=== PATIENT | female | born 1955 | race Hispanic/Latino ===

== ENCOUNTER 2018-07-31 15:16 | Inpatient (IN) | payer MEDICARE, MEDICAID ==
[2018-07-31] MEDS ORDERED: Sodium Chloride 0.9% 1,000 ML IV ONE ×2 (15:39→16:14)
--- NOTE | 2018-07-31 15:57 | C.PDOC ---
History Of Present Illness 62 y/o female, with PMHx of HTN, hyperlipidemia, and depression, is brought to ED by EMS for altered mental status. As per son, pt was drowsy all day yesterday, and had called EMS but pt refused to come to hospital. However, son states patient's condition worsened, and she was not answering any questions today. EMS was called again. Upon EMS arrival, pt found to be unresponsive, and hypersalivating. Pt was intubated on field, ET tube 7.0 at the lip. Limited history at this time due to clinical condition. Chief Complaint (Nursing): Altered Mental Status History Per: Patient History/Exam Limitations: Clinical Condition Additional History Per: EMS, Family Past Medical History Reviewed: Historical Data, Nursing Documentation, Vital Signs Vital Signs: Last Vital Signs Temp Pulse 104 H 07/31/18 15:26 Resp 11 L 07/31/18 15:26 BP Pulse Ox 100 07/31/18 15:26 - Medical History PMH: Depression, HTN, Hyperlipidemia Family History: States: Unknown Family Hx - Social History Hx Alcohol Use: (unknown) Hx Substance Use: (unknown) Review Of Systems Review Of Systems: ROS cannot be obtained secondary to pt's inabilty to answer questions. Neurological: Positive for: Altered Mental Status Physical Exam - Physical Exam Appears: Non-toxic Skin: Warm, Dry, Other (multiple healing rash diffusely) Head: Atraumatic, Normacephalic Eye(s): bilateral: PERRL (pupils 3mm bilaterally) Nose: Normal Oral Mucosa: Dry Neck: Supple Chest: Symmetrical Cardiovascular: Rhythm Regular Respiratory: Normal Breath Sounds Gastrointestinal/Abdominal: Soft, No Tenderness Extremity: Pedal Edema (bilateral) Extremity: Bilateral: Atraumatic Neurological/Psych: Other (unresponsive) ED Course And Treatment - Laboratory Results Result Diagrams: 08/02/18 05:48 08/02/18 05:49 ECG: Interpreted By Me, Viewed By Me ECG Rhythm: Sinus Tachycardia ECG Interpretation: No Acute Changes Interpretation Of ECG: No ST/T wave changes. Rate From EC (bpm) O2 Sat by Pulse Oximetry: 100 (RA) Pulse Ox Interpretation: Normal Medical Decision Making Medical Decision Making: Impression: Altered mental status with respiratory failure. r/o CVA Plan: Blood work Urinalysis Head CT CXR Sodium Bicarbonate IV fluids Spoke with Dr. Seth, field service consultant critical care, who requests emergency hemodialysis. Spoke to Dr. Gann, field service consultant nephrology, informed about emergency hemodialysis. He agrees with plan. executive vice president of sales was pages and was informed about [facility]. Family members agree with plan to hemodialyze. Disposition - Disposition Disposition: HOSPITALIZED Disposition Time: 17:11 Condition: CRITICAL - Clinical Impression Clinical Impression: Metabolic acidosis, Rhabdomyolysis, Acute kidney injury, Respiratory failure - Scribe Statement The provider has reviewed the documentation as recorded by the Scribe KP All medical record entries made by the Scribe were at my direction and personally dictated by me. I have reviewed the chart and agree that the record accurately reflects my personal performance of the history, physical exam, medical decision making, and the department course for this patient. I have also personally directed, reviewed, and agree with the discharge instructions and disposition.
[2018-07-31 16:00] LABS: BASO % 0.2 % (0.0-2.0); EOS % 0.1 % (0.0-4.0); HEMOGLOBIN 9.2 g/dL (11.0-16.0); LYMPH # 0.6 K/uL (1.0-4.3); LYMPH % 4.9 % (20.0-40.0); MEAN CELL VOLUME 95.4 fL (81.0-99.0); MEAN CORPUSCULAR HEMOGLOBIN 31.7 pg (27.0-31.0); MEAN CORPUSCULAR HGB CONC 33.3 g/dL (33.0-37.0); MEAN PLATELET VOLUME 8.2 fL (7.2-11.7); MONO # 0.7 K/uL (0.0-0.8); MONO % 5.4 % (0.0-10.0); NEUT # 11.5 K/uL (1.8-7.0); NEUT % 89.4 % (50.0-75.0); NRBC % 0.2 % (0.0-2.0); PLATELET COUNT 278 K/uL (130-400); RBC 2.89 Mil/uL (3.80-5.20); RED CELL DISTRIBUTION WIDTH 14.3 % (11.5-14.5); WHITE BLOOD COUNT 12.8 K/uL (4.8-10.8)
[2018-07-31 16:01] LABS: VENOUS BLOOD GAS BASE EXCESS -24.1 mmol/L (0.0-2.0); VENOUS BLOOD GAS PCO2 33 mmHg (40-60); VENOUS BLOOD GAS PO2 56 mm/Hg (30-55); VENOUS BLOOD PH 6.95 (7.32-7.43)
[2018-07-31 16:06] LABS: INR 1.1; PROTHROMBIN TIME 12.1 SECONDS (9.7-12.2)
[2018-07-31 16:18] LABS: SQUAMOUS EPITHIAL 36 /hpf (0-5); URINE AMORPHOUS SEDIMENT FEW /ul (<OCC); URINE BACTERIA MANY (<OCC); URINE BILIRUBIN 1+ (NEGATIVE); URINE BLOOD 1+ (NEGATIVE); URINE CLARITY Turbid (Clear); URINE COLOR Yellow (YELLOW); URINE GLUCOSE (UA) NORMAL (Normal); URINE LEUKOCYTE ESTERASE 2+ Leu/uL (Negative); URINE PROTEIN 2+ mg/dL (NEGATIVE); URINE UROBILINOGEN NORMAL mg/dL (0.2-1.0); WBC CLUMPS MANY /hpf
[2018-07-31 16:19] LABS: ABG ALLEN TEST UNABLE; ARTERIAL BLOOD GAS HCO3 5.9 mmol/L (21-28); ARTERIAL BLOOD GAS PCO2 27 mm/Hg (35-45); ARTERIAL BLOOD GAS PH 6.97 (7.35-7.45); ARTERIAL BLOOD GAS PO2 336 mm/Hg (80-100)
[2018-07-31 16:22] LABS: ACETAMINOPHEN < 10.0 ug/mL (10.0-30.0); SALICYLATE < 1.0 mg/dL 1
--- NOTE | 2018-07-31 16:22 | RAD ---
Date of service: 07/31/2018 PROCEDURE: CHEST RADIOGRAPH, 1 VIEW HISTORY: post intubation COMPARISON: No prior study available for comparison. FINDINGS: In situ ETT, tip of which lies approximately 3.9 cm above ede. NGT is present, the tip of which appears to lie just below the EG junction LUNGS: Hazy appearance of the left lower lung field could represent some combination of atelectasis/infiltrate and effusion.. Minimal linear atelectasis or scarring right lung base. PLEURA: No pneumothorax or pleural fluid seen. CARDIOVASCULAR: . Heart size within range of normal. OSSEOUS STRUCTURES: No significant abnormalities. VISUALIZED UPPER ABDOMEN: Normal. OTHER FINDINGS: None. IMPRESSION: ETT and NGT as described. Hazy appearance of the left lower lung field could represent some combination of atelectasis/infiltrate and effusion.. Minimal linear atelectasis or scarring right lung base.
[2018-07-31 16:25] LABS: CK-MB 27.1 ng/mL (0.0-3.38); TROPONIN I 0.023 ng/mL (0.00-0.120)
[2018-07-31 16:26] LABS: ALB/GLOB RATIO 0.9 (1.0-2.1); ALBUMIN 3.1 g/dL (3.5-5.0); CALCIUM 7.6 mg/dl (8.6-10.4)
[2018-07-31] MEDS ORDERED: Sodium Bicarbonate (8.4%) 50 Meq Syringe IVP ONE ×3 (16:28→16:31)
[2018-07-31 16:36] LABS: BANDS 3 % (0-2); LYMPHOCYTE 4 % (20-40); MONOCYTE 2 % (0-10); NEUTROPHIL 91 % (50-75); PLATELET ESTIMATE NORMAL (NORMAL); TOTAL CELLS COUNTED 100
[2018-07-31 16:37] LABS: ANISOCYTOSIS SLIGHT; HYPOCHROMIC SLIGHT; LARGE PLATELETS PRESENT; MICROCYTOSIS SLIGHT
[2018-07-31] MEDS ORDERED: Sodium Bicarbonate (8.4%) 50 Meq Syringe ONE (16:46)
[2018-07-31 16:52] LABS: BARBITURATES, UR NEGATIVE (NEGATIVE); PHENCYCLIDINE, UR NEGATIVE (NEGATIVE)
[2018-07-31 16:54] LABS: BENZODIAZEPINES, UR POSITIVE (NEGATIVE); OPIATES, UR POSITIVE (NEGATIVE)
[2018-07-31] MEDS ORDERED: Azithromycin 500 MG in Sodium Chloride 0.9% 250 ML IVPB STA (17:02)
--- NOTE | 2018-07-31 17:06 | CT ---
Date of service: 07/31/2018 PROCEDURE: CT HEAD WITHOUT CONTRAST. HISTORY: respiratory failure COMPARISON: None available. TECHNIQUE: Axial computed tomography images were obtained through the head/brain without intravenous contrast. Radiation dose: Total exam DLP = 1045.92 mGy-cm. This CT exam was performed using one or more of the following dose reduction techniques: Automated exposure control, adjustment of the mA and/or kV according to patient size, and/or use of iterative reconstruction technique. FINDINGS: Ground Support Equipment Fitter film demonstrates in situ ETT and NGT... HEMORRHAGE: No intracranial hemorrhage. BRAIN: Minor chronic periventricular white matter ischemic changes are felt to be present. There are a few tiny chronic appearing bilateral basal nuclei lacunar type infarcts.. No obvious parenchymal nor extra-axial mass or collection. Moderate generalized volume loss VENTRICLES: No obstructive hydrocephalus. CALVARIUM: Calvarium intact. PARANASAL SINUSES: There is partial opacification of multiple ethmoid air cells more so on the right side.. Small amount of fluid is present within the posterior nasal cavity and nasopharynx likely related to the presence aforementioned ETT and NGT MASTOID AIR CELLS: Unremarkable as visualized. No inflammatory changes. OTHER FINDINGS: Orbits and contents unremarkable. IMPRESSION: Mild chronic periventricular white matter ischemic changes with a few tiny chronic bilateral basal nuclei lacunar type infarcts. Moderate generalized volume loss.
[2018-07-31] MEDS ORDERED: Azithromycin 500mg/250ML NS 500 MG/250 ML BAG IVPB ONE (17:11)
[2018-07-31] MEDS ORDERED: cefTRIAXone 1 gm 1 GM/100 ML BAG IVPB ONE (17:11)
--- NOTE | 2018-07-31 18:04 | CP.PCM.CON ---
History of Present Illness - History of Present Illness History of Present Illness: 62yo F. PMHx HTN, hyperlipidemia, and depression. Was drowsy yesterday, couch bound for days expecially after recently starting Remeron for depression. Patient was lethargic yesterday but refused EMS pickup and admission to hospital . EMS called again today and found patient unresponsive, and intubated her in the field. Review of Systems - Review of Systems Systems not reviewed;Unavailable: Intubated Past Patient History - Past Social History Smoking Status: Unknown If Ever Smoked - CARDIAC Hx Hypertension: Yes - PSYCHIATRIC Hx Depression: Yes Hx Substance Use: (unknown) Meds Allergies/Adverse Reactions: Allergies Allergy/AdvReac Type Severity Reaction Status Date / Time No Known Allergies Allergy Verified 07/31/18 15:33 - Medications Medications: Current Medications Sodium Chloride (Sodium Chloride 0.9%) 1,000 mls @ 250 mls/hr IV .Q4H ONE Stop: 07/31/18 20:13 Last Admin: 07/31/18 16:20 Dose: 250 mls/hr Ceftriaxone Sodium 1 gm/ (Sodium Chloride) 100 mls @ 100 mls/hr IVPB ONCE ONE; Protocol Stop: 08/01/18 18:00 Last Admin: 07/31/18 17:11 Dose: 100 mls/hr Physical Exam - Head Exam Head Exam: ATRAUMATIC, NORMAL INSPECTION, NORMOCEPHALIC - Eye Exam Eye Exam: Normal appearance Pupil Exam: PERRL - ENT Exam ENT Exam: Mucous Membranes Moist - Neck Exam Neck exam: Positive for: Normal Inspection - Respiratory Exam Respiratory Exam: Clear to Auscultation Bilateral, NORMAL BREATHING PATTERN - Cardiovascular Exam Cardiovascular Exam: REGULAR RHYTHM - GI/Abdominal Exam GI & Abdominal Exam: Normal Bowel Sounds, Soft. absent: Tenderness Results - Vital Signs Recent Vital Signs: Last Vital Signs Temp 98.1 F 07/31/18 15:40 Pulse 119 H 07/31/18 17:15 Resp 13 07/31/18 17:15 BP 133/67 07/31/18 17:15 Pulse Ox 100 07/31/18 17:47 - Labs Result Diagrams: 07/31/18 15:47 07/31/18 15:47 Labs: Laboratory Results - last 24 hr 07/31/18 07/31/18 07/31/18 15:21 15:47 15:47 WBC 12.8 H RBC 2.89 L Hgb 9.2 L Hct 27.6 L MCV 95.4 MCH 31.7 H MCHC 33.3 RDW 14.3 Plt Count 278 MPV 8.2 Neut % (Auto) 89.4 H Lymph % (Auto) 4.9 L [place] % (Auto) 5.4 Eos % (Auto) 0.1 Baso % (Auto) 0.2 Neut # (Auto) 11.5 H Lymph # (Auto) 0.6 L [place] # (Auto) 0.7 Eos # (Auto) 0.0 Baso # (Auto) 0.0 Neutrophils % (Manual) 91 H Band Neutrophils % 3 H Lymphocytes % (Manual) 4 L Monocytes % (Manual) 2 Platelet Estimate Normal Large Platelets Present Hypochromasia (manual) Slight Anisocytosis (manual) Slight Microcytosis (manual) Slight Macrocytosis (manual) Slight PT 12.1 INR 1.1 APTT 28 Puncture Site pCO2 pO2 HCO3 ABG pH ABG Total CO2 ABG O2 Saturation ABG Base Excess Yoan Test ABG Potassium VBG pH VBG pCO2 VBG HCO3 VBG Total CO2 VBG O2 Sat (Calc) VBG Base Excess VBG Potassium A-a O2 Difference Respiratory Index Glucose Lactate Vent Mode Mechanical Rate FiO2 Tidal Volume PEEP Crit Value Called To Crit Value Called By Crit Value Read Back Blood Gas Notified Time Sodium Potassium Chloride Carbon Dioxide Anion Gap BUN Creatinine Est GFR ( Amer) Est GFR (Non-Af Amer) POC Glucose (mg/dL) 101 Random Glucose Calcium Phosphorus Magnesium Total Bilirubin AST ALT Alkaline Phosphatase Ammonia Total Creatine Kinase CK-MB (Mass) Troponin I Total Protein Albumin Globulin Albumin/Globulin Ratio Arterial Blood Potassium Venous Blood Potassium Urine Color Urine Clarity Urine pH Ur Specific [place] Urine Protein Urine Glucose (UA) Urine Ketones Urine Blood Urine Nitrate Urine Bilirubin Urine Urobilinogen Ur Leukocyte Esterase Urine WBC (Auto) Urine RBC (Auto) Urine WBC Clumps (Auto) Ur Squamous Epith Cells Amorphous Sediment Urine Bacteria Salicylates Urine Opiates Screen Urine Methadone Screen Acetaminophen Ur Barbiturates Screen Ur Phencyclidine Scrn Ur Amphetamines Screen U Benzodiazepines Scrn U Oth Cocaine Metabols U Cannabinoids Screen 07/31/18 07/31/18 07/31/18 15:47 15:47 15:51 WBC RBC Hgb Hct MCV MCH MCHC RDW Plt Count MPV Neut % (Auto) Lymph % (Auto) [place] % (Auto) Eos % (Auto) Baso % (Auto) Neut # (Auto) Lymph # (Auto) [place] # (Auto) Eos # (Auto) Baso # (Auto) Neutrophils % (Manual) Band Neutrophils % Lymphocytes % (Manual) Monocytes % (Manual) Platelet Estimate Large Platelets Hypochromasia (manual) Anisocytosis (manual) Microcytosis (manual) Macrocytosis (manual) PT INR APTT Puncture Site pCO2 pO2 56 H HCO3 ABG pH ABG Total CO2 ABG O2 Saturation ABG Base Excess Yoan Test ABG Potassium VBG pH 6.95 L* VBG pCO2 33 L VBG HCO3 5.3 VBG Total CO2 8.3 L VBG O2 Sat (Calc) 87.3 H VBG Base Excess -24.1 L VBG Potassium 3.7 A-a O2 Difference Respiratory Index Glucose 102 Lactate 1.0 Vent Mode Mechanical Rate FiO2 Tidal Volume PEEP Crit Value Called To Dane Crit Value Called By Mitchel eason Crit Value Read Back Y Blood Gas Notified Time 1600 Sodium 142 138.0 Potassium 3.6 Chloride 109 H 110.0 H Carbon Dioxide 6 L* Anion Gap 30 H BUN 98 H Creatinine 9.6 H* Est GFR ( Amer) 5 Est GFR (Non-Af Amer) 4 POC Glucose (mg/dL) Random Glucose 105 Calcium 7.6 L Phosphorus 11.1 H Magnesium 2.3 Total Bilirubin 0.4 AST 51 H ALT 31 Alkaline Phosphatase 66 Ammonia 70 H Total Creatine Kinase 1109 H CK-MB (Mass) 27.1 H Troponin I 0.0230 Total Protein 6.4 Albumin 3.1 L Globulin 3.3 Albumin/Globulin Ratio 0.9 L Arterial Blood Potassium Venous Blood Potassium 3.7 Urine Color Urine Clarity Urine pH Ur Specific [place] Urine Protein Urine Glucose (UA) Urine Ketones Urine Blood Urine Nitrate Urine Bilirubin Urine Urobilinogen Ur Leukocyte Esterase Urine WBC (Auto) Urine RBC (Auto) Urine WBC Clumps (Auto) Ur Squamous Epith Cells Amorphous Sediment Urine Bacteria Salicylates Urine Opiates Screen Urine Methadone Screen Acetaminophen Ur Barbiturates Screen Ur Phencyclidine Scrn Ur Amphetamines Screen U Benzodiazepines Scrn U Oth Cocaine Metabols U Cannabinoids Screen 07/31/18 07/31/18 07/31/18 15:57 16:00 16:00 WBC RBC Hgb Hct MCV MCH MCHC RDW Plt Count MPV Neut % (Auto) Lymph % (Auto) [place] % (Auto) Eos % (Auto) Baso % (Auto) Neut # (Auto) Lymph # (Auto) [place] # (Auto) Eos # (Auto) Baso # (Auto) Neutrophils % (Manual) Band Neutrophils % Lymphocytes % (Manual) Monocytes % (Manual) Platelet Estimate Large Platelets Hypochromasia (manual) Anisocytosis (manual) Microcytosis (manual) Macrocytosis (manual) PT INR APTT Puncture Site pCO2 pO2 HCO3 ABG pH ABG Total CO2 ABG O2 Saturation ABG Base Excess Yoan Test ABG Potassium VBG pH VBG pCO2 VBG HCO3 VBG Total CO2 VBG O2 Sat (Calc) VBG Base Excess VBG Potassium A-a O2 Difference Respiratory Index Glucose Lactate Vent Mode Mechanical Rate FiO2 Tidal Volume PEEP Crit Value Called To Crit Value Called By Crit Value Read Back Blood Gas Notified Time Sodium Potassium Chloride Carbon Dioxide Anion Gap BUN Creatinine Est GFR ( Amer) Est GFR (Non-Af Amer) POC Glucose (mg/dL) Random Glucose Calcium Phosphorus Magnesium Total Bilirubin AST ALT Alkaline Phosphatase Ammonia Total Creatine Kinase CK-MB (Mass) Troponin I Total Protein Albumin Globulin Albumin/Globulin Ratio Arterial Blood Potassium Venous Blood Potassium Urine Color Yellow Urine Clarity Turbid Urine pH 6.0 Ur Specific [place] 1.017 Urine Protein 2+ H Urine Glucose (UA) Normal Urine Ketones Negative Urine Blood 1+ H Urine Nitrate Negative Urine Bilirubin 1+ H Urine Urobilinogen Normal Ur Leukocyte Esterase 2+ H Urine WBC (Auto) 2284 H Urine RBC (Auto) 50 H Urine WBC Clumps (Auto) Many H Ur Squamous Epith Cells 36 H Amorphous Sediment Few H Urine Bacteria Many H Salicylates < 1.0 Urine Opiates Screen Positive H Urine Methadone Screen Negative Acetaminophen < 10.0 L Ur Barbiturates Screen Negative Ur Phencyclidine Scrn Negative Ur Amphetamines Screen Negative U Benzodiazepines Scrn Positive U Oth Cocaine Metabols Negative U Cannabinoids Screen Negative 07/31/18 16:16 WBC RBC Hgb Hct MCV MCH MCHC RDW Plt Count MPV Neut % (Auto) Lymph % (Auto) [place] % (Auto) Eos % (Auto) Baso % (Auto) Neut # (Auto) Lymph # (Auto) [place] # (Auto) Eos # (Auto) Baso # (Auto) Neutrophils % (Manual) Band Neutrophils % Lymphocytes % (Manual) Monocytes % (Manual) Platelet Estimate Large Platelets Hypochromasia (manual) Anisocytosis (manual) Microcytosis (manual) Macrocytosis (manual) PT INR APTT Puncture Site Lr pCO2 27 L pO2 336 H HCO3 5.9 L* ABG pH 6.97 L* ABG Total CO2 7.0 L ABG O2 Saturation 100.0 H ABG Base Excess -24.5 L Yoan Test Unable ABG Potassium 2.9 L VBG pH VBG pCO2 VBG HCO3 VBG Total CO2 VBG O2 Sat (Calc) VBG Base Excess VBG Potassium A-a O2 Difference 343.0 Respiratory Index 1.0 Glucose 106 H Lactate 0.7 Vent Mode Prvc Mechanical Rate 14 FiO2 100.0 Tidal Volume 450 PEEP 5 Crit Value Called To Dr triplett Crit Value Called By Mitchel eason Crit Value Read Back Y Blood Gas Notified Time 1619 Sodium 137.0 Potassium Chloride 115.0 H Carbon Dioxide Anion Gap BUN Creatinine Est GFR ( Amer) Est GFR (Non-Af Amer) POC Glucose (mg/dL) Random Glucose Calcium Phosphorus Magnesium Total Bilirubin AST ALT Alkaline Phosphatase Ammonia Total Creatine Kinase CK-MB (Mass) Troponin I Total Protein Albumin Globulin Albumin/Globulin Ratio Arterial Blood Potassium 2.9 L Venous Blood Potassium Urine Color Urine Clarity Urine pH Ur Specific [place] Urine Protein Urine Glucose (UA) Urine Ketones Urine Blood Urine Nitrate Urine Bilirubin Urine Urobilinogen Ur Leukocyte Esterase Urine WBC (Auto) Urine RBC (Auto) Urine WBC Clumps (Auto) Ur Squamous Epith Cells Amorphous Sediment Urine Bacteria Salicylates Urine Opiates Screen Urine Methadone Screen Acetaminophen Ur Barbiturates Screen Ur Phencyclidine Scrn Ur Amphetamines Screen U Benzodiazepines Scrn U Oth Cocaine Metabols U Cannabinoids Screen Assessment & Plan (1) Acute renal failure on dialysis Assessment and Plan: 62yo F. PMHx HTN, hyperlipidemia, and depression. p/w acute respiratory failure, in acute renal failure in severe metabolic acidosis. Neuro: comatose Pulm: acute respiratory failure on vent. CV: hemodynamically stable Hem: no acute issues Renal: HAGMA with ROBIN, requiring emergent dialysis. Endo: no acute issues GI: NPO, Nephro ID: empiric therapy with Zosyn. source of sepsis, if there is one, is uncertain. DVT proph - heparin sq GI proph - protonix white for strict I/O's during acute illness Code status - full code Critical Care Time spent 35 minutes Multi-disciplinary rounds were performed with house staff, nursing, speech therapy, respiratory therapy, pharmacy and nutrition with integrated input from the primary team/attending and other consulting services. The documented time is cumulative and includes review of patient data/exams/labs/chart review and examination of the patient on rounds and throughout the day; time is exclusive of any procedures or teaching time. Status: Acute
[2018-07-31] MEDS ORDERED: SODIUM BICARBONATE IV SCH (18:30)
[2018-07-31] MEDS ORDERED: SODIUM CHLORIDE 0.45% IV SCH (18:30)
[2018-07-31] MEDS ORDERED: Sodium Bicarbonate 8.4% 150 MEQ in Sodium Chloride 0.45% 850 ML IV SCH (19:00)
--- NOTE | 2018-07-31 19:23 | PCM.PROC ---
Procedures Attestation:: I certify that I have explained the specified Operation(s) or Procedure(s), risks, benefits and reasonable alternatives to the Patient and/or other person responsible. The opportunity was given to ask questions and all questions answered - Central Line Placement Right Femoral Hemodialysis Access Aseptic technique was employed throughout the procedure: Hand Hygiene done prior to procedure, Full sterile barriers (mask, hair cover, sterile gown, sterile gloves), Full body sterile drape, Chloraprep Antiseptic: 2 minute prep for Femoral CVP Time Out Performed: Yes Pt. Placed on Pulse Ox Monitor: Yes Central Line Prep: Chlorhexidine-Alcohol Combination Local Anesthesia Used: Lidocaine 1% Amount of Anesthesia Used (mls): 5 Ultrasound Used for Placement: Yes Central Line Lumen Inserted: triple Central Line Length: 20 cm Post Procedure: Sutured in Place, Good Blood Return, All Ports Aspirated, Flushed, Capped, Sterile Dressing Applied Secured by: Suture Post procedure dressing: Clear vapor permeable, Chlorhexidine disc (Biopatch) Post Procedure X-Ray: No Patient Tolerated Procedure: Well Immediate Complications: None
[2018-07-31] MEDS: Piperacill/Tazo 3.375gm in Dex 3.375 GM/50 ML BAG IVPB SCH (19:29)
[2018-07-31] MEDS ORDERED: Permethrin 5% Cream(60 gm) TOP ONE (19:53)
--- NOTE | 2018-07-31 19:56 | CP.PCM.CON ---
History of Present Illness - History of Present Illness History of Present Illness: RENAL CONSULT Consult for ARF HPI: 62yo F w/ pmh of HTN, hyperlipid, depression that was brought in for lethargy and unresponsiveness. All hx obtain from son over phone and chart/ICU staff. Initially EMS came - pt refused to come earlier today. However, EMS came back later that day and she was unresponsive and intubated. SHe was brought in w/ severe renal failure and acidosis. According to sons - has been on the cough - "unconscnious" for 2 days - recently started on remeron by PCP> They are unaware of any hx of renal failure/kidney disease in the past. She has not been eating or drinking the last 2 days. ros: unable to obtain pt intubated and sedated pmh: htn hyperlipid depression famhx: unable to obtain sochx: unable to obtain meds as below all: nkda VS: as below GEN: intubated sclera: anicteric op: et tube neck: supple no thyromegaly cv: +S1+s2 lungs: cta ant abd: soft nt/nd/ no organomegaly psych: intubated neuro: intubated skin no rash labs and imaging reviewed imp: ARF/ Acidosis/ respiratory failure /hyperphosphatemia/ rhabdomylosis/ anemia plan: ROBIN - etiology not clear at this point - need to find out jennifer from PCP old labs to see if any degree of renal failure previously. UA w/ wbc/rbc/bacteria - ? UTI ? glomerular process. Will check UPCR. Not clear if any possible toxic ingestion as well Given the severity of the acidosis and renal failure - will initiate emergency HD given the critical findings. will check renal us to see if kidneys are normal size v echogenicity to suggest more chronic findings. for hyperphosphatemia will start ca acetate. Its not clear why phos is quite elevated but mag/k not as elevated as would be expected with this degree of renal failure. Will try to find out if any recent fleet enema use. recc continue IVF UA has bacteria/wbc/rbc recc empiric abx. trend cpk - cpk does not appear high enough to explain renal failure -unless was much higher previously and trended down Past Patient History - Past Social History Smoking Status: Unknown If Ever Smoked - CARDIAC Hx Hypertension: Yes - PSYCHIATRIC Hx Depression: Yes Hx Substance Use: (unknown) Meds Allergies/Adverse Reactions: Allergies Allergy/AdvReac Type Severity Reaction Status Date / Time No Known Allergies Allergy Verified 07/31/18 15:33 - Medications Medications: Current Medications Bacitracin (Bacitracin) 1 ea TOP BID JOSE Stop: 08/07/18 20:01 Heparin Sodium (Porcine) (Heparin) 5,000 units SC Q8 JOSE Ceftriaxone Sodium 1 gm/ (Sodium Chloride) 100 mls @ 100 mls/hr IVPB ONCE ONE; Protocol Stop: 08/01/18 18:00 Last Admin: 07/31/18 17:11 Dose: 100 mls/hr Piperacillin Sod/Tazobactam Sod (Zosyn 3.375 Gm Iv Premix) 3.375 gm in 50 mls @ 100 mls/hr IVPB Q6H [facility]; Protocol Last Admin: 07/31/18 19:29 Dose: 100 mls/hr Sodium Bicarbonate 150 meq/ (Sodium Chloride) 1,000 mls @ 70 mls/hr IV .[id number] JOSE Last Admin: 07/31/18 19:33 Dose: 70 mls/hr Pantoprazole Sodium (Protonix Susp) 40 mg PO 0600 [facility] Results - Vital Signs Recent Vital Signs: Last Vital Signs Temp 98.1 F 07/31/18 15:40 Pulse 117 H 07/31/18 18:22 Resp 12 07/31/18 18:22 BP 147/70 07/31/18 18:21 Pulse Ox 95 07/31/18 18:21 - Labs Result Diagrams: 07/31/18 15:47 07/31/18 15:47 Labs: Laboratory Results - last 24 hr 07/31/18 07/31/18 07/31/18 15:21 15:47 15:47 WBC 12.8 H RBC 2.89 L Hgb 9.2 L Hct 27.6 L MCV 95.4 MCH 31.7 H MCHC 33.3 RDW 14.3 Plt Count 278 MPV 8.2 Neut % (Auto) 89.4 H Lymph % (Auto) 4.9 L [place] % (Auto) 5.4 Eos % (Auto) 0.1 Baso % (Auto) 0.2 Neut # (Auto) 11.5 H Lymph # (Auto) 0.6 L [place] # (Auto) 0.7 Eos # (Auto) 0.0 Baso # (Auto) 0.0 Neutrophils % (Manual) 91 H Band Neutrophils % 3 H Lymphocytes % (Manual) 4 L Monocytes % (Manual) 2 Platelet Estimate Normal Large Platelets Present Hypochromasia (manual) Slight Anisocytosis (manual) Slight Microcytosis (manual) Slight Macrocytosis (manual) Slight PT 12.1 INR 1.1 APTT 28 Puncture Site pCO2 pO2 HCO3 ABG pH ABG Total CO2 ABG O2 Saturation ABG Base Excess Yoan Test ABG Potassium VBG pH VBG pCO2 VBG HCO3 VBG Total CO2 VBG O2 Sat (Calc) VBG Base Excess VBG Potassium A-a O2 Difference Respiratory Index Glucose Lactate Vent Mode Mechanical Rate FiO2 Tidal Volume PEEP Crit Value Called To Crit Value Called By Crit Value Read Back Blood Gas Notified Time Sodium Potassium Chloride Carbon Dioxide Anion Gap BUN Creatinine Est GFR ( Amer) Est GFR (Non-Af Amer) POC Glucose (mg/dL) 101 Random Glucose Calcium Phosphorus Magnesium Total Bilirubin AST ALT Alkaline Phosphatase Ammonia Total Creatine Kinase CK-MB (Mass) Troponin I Total Protein Albumin Globulin Albumin/Globulin Ratio Arterial Blood Potassium Venous Blood Potassium Urine Color Urine Clarity Urine pH Ur Specific [place] Urine Protein Urine Glucose (UA) Urine Ketones Urine Blood Urine Nitrate Urine Bilirubin Urine Urobilinogen Ur Leukocyte Esterase Urine WBC (Auto) Urine RBC (Auto) Urine WBC Clumps (Auto) Ur Squamous Epith Cells Amorphous Sediment Urine Bacteria Salicylates Urine Opiates Screen Urine Methadone Screen Acetaminophen Ur Barbiturates Screen Ur Phencyclidine Scrn Ur Amphetamines Screen U Benzodiazepines Scrn U Oth Cocaine Metabols U Cannabinoids Screen 07/31/18 07/31/18 07/31/18 15:47 15:47 15:51 WBC RBC Hgb Hct MCV MCH MCHC RDW Plt Count MPV Neut % (Auto) Lymph % (Auto) [place] % (Auto) Eos % (Auto) Baso % (Auto) Neut # (Auto) Lymph # (Auto) [place] # (Auto) Eos # (Auto) Baso # (Auto) Neutrophils % (Manual) Band Neutrophils % Lymphocytes % (Manual) Monocytes % (Manual) Platelet Estimate Large Platelets Hypochromasia (manual) Anisocytosis (manual) Microcytosis (manual) Macrocytosis (manual) PT INR APTT Puncture Site pCO2 pO2 56 H HCO3 ABG pH ABG Total CO2 ABG O2 Saturation ABG Base Excess Yoan Test ABG Potassium VBG pH 6.95 L* VBG pCO2 33 L VBG HCO3 5.3 VBG Total CO2 8.3 L VBG O2 Sat (Calc) 87.3 H VBG Base Excess -24.1 L VBG Potassium 3.7 A-a O2 Difference Respiratory Index Glucose 102 Lactate 1.0 Vent Mode Mechanical Rate FiO2 Tidal Volume PEEP Crit Value Called To Dane Crit Value Called By Mitchel eason Crit Value Read Back Y Blood Gas Notified Time 1600 Sodium 142 138.0 Potassium 3.6 Chloride 109 H 110.0 H Carbon Dioxide 6 L* Anion Gap 30 H BUN 98 H Creatinine 9.6 H* Est GFR ( Amer) 5 Est GFR (Non-Af Amer) 4 POC Glucose (mg/dL) Random Glucose 105 Calcium 7.6 L Phosphorus 11.1 H Magnesium 2.3 Total Bilirubin 0.4 AST 51 H ALT 31 Alkaline Phosphatase 66 Ammonia 70 H Total Creatine Kinase 1109 H CK-MB (Mass) 27.1 H Troponin I 0.0230 Total Protein 6.4 Albumin 3.1 L Globulin 3.3 Albumin/Globulin Ratio 0.9 L Arterial Blood Potassium Venous Blood Potassium 3.7 Urine Color Urine Clarity Urine pH Ur Specific [place] Urine Protein Urine Glucose (UA) Urine Ketones Urine Blood Urine Nitrate Urine Bilirubin Urine Urobilinogen Ur Leukocyte Esterase Urine WBC (Auto) Urine RBC (Auto) Urine WBC Clumps (Auto) Ur Squamous Epith Cells Amorphous Sediment Urine Bacteria Salicylates Urine Opiates Screen Urine Methadone Screen Acetaminophen Ur Barbiturates Screen Ur Phencyclidine Scrn Ur Amphetamines Screen U Benzodiazepines Scrn U Oth Cocaine Metabols U Cannabinoids Screen 07/31/18 07/31/18 07/31/18 15:57 16:00 16:00 WBC RBC Hgb Hct MCV MCH MCHC RDW Plt Count MPV Neut % (Auto) Lymph % (Auto) [place] % (Auto) Eos % (Auto) Baso % (Auto) Neut # (Auto) Lymph # (Auto) [place] # (Auto) Eos # (Auto) Baso # (Auto) Neutrophils % (Manual) Band Neutrophils % Lymphocytes % (Manual) Monocytes % (Manual) Platelet Estimate Large Platelets Hypochromasia (manual) Anisocytosis (manual) Microcytosis (manual) Macrocytosis (manual) PT INR APTT Puncture Site pCO2 pO2 HCO3 ABG pH ABG Total CO2 ABG O2 Saturation ABG Base Excess Yoan Test ABG Potassium VBG pH VBG pCO2 VBG HCO3 VBG Total CO2 VBG O2 Sat (Calc) VBG Base Excess VBG Potassium A-a O2 Difference Respiratory Index Glucose Lactate Vent Mode Mechanical Rate FiO2 Tidal Volume PEEP Crit Value Called To Crit Value Called By Crit Value Read Back Blood Gas Notified Time Sodium Potassium Chloride Carbon Dioxide Anion Gap BUN Creatinine Est GFR ( Amer) Est GFR (Non-Af Amer) POC Glucose (mg/dL) Random Glucose Calcium Phosphorus Magnesium Total Bilirubin AST ALT Alkaline Phosphatase Ammonia Total Creatine Kinase CK-MB (Mass) Troponin I Total Protein Albumin Globulin Albumin/Globulin Ratio Arterial Blood Potassium Venous Blood Potassium Urine Color Yellow Urine Clarity Turbid Urine pH 6.0 Ur Specific [place] 1.017 Urine Protein 2+ H Urine Glucose (UA) Normal Urine Ketones Negative Urine Blood 1+ H Urine Nitrate Negative Urine Bilirubin 1+ H Urine Urobilinogen Normal Ur Leukocyte Esterase 2+ H Urine WBC (Auto) 2284 H Urine RBC (Auto) 50 H Urine WBC Clumps (Auto) Many H Ur Squamous Epith Cells 36 H Amorphous Sediment Few H Urine Bacteria Many H Salicylates < 1.0 Urine Opiates Screen Positive H Urine Methadone Screen Negative Acetaminophen < 10.0 L Ur Barbiturates Screen Negative Ur Phencyclidine Scrn Negative Ur Amphetamines Screen Negative U Benzodiazepines Scrn Positive U Oth Cocaine Metabols Negative U Cannabinoids Screen Negative 07/31/18 16:16 WBC RBC Hgb Hct MCV MCH MCHC RDW Plt Count MPV Neut % (Auto) Lymph % (Auto) [place] % (Auto) Eos % (Auto) Baso % (Auto) Neut # (Auto) Lymph # (Auto) [place] # (Auto) Eos # (Auto) Baso # (Auto) Neutrophils % (Manual) Band Neutrophils % Lymphocytes % (Manual) Monocytes % (Manual) Platelet Estimate Large Platelets Hypochromasia (manual) Anisocytosis (manual) Microcytosis (manual) Macrocytosis (manual) PT INR APTT Puncture Site Lr pCO2 27 L pO2 336 H HCO3 5.9 L* ABG pH 6.97 L* ABG Total CO2 7.0 L ABG O2 Saturation 100.0 H ABG Base Excess -24.5 L Yoan Test Unable ABG Potassium 2.9 L VBG pH VBG pCO2 VBG HCO3 VBG Total CO2 VBG O2 Sat (Calc) VBG Base Excess VBG Potassium A-a O2 Difference 343.0 Respiratory Index 1.0 Glucose 106 H Lactate 0.7 Vent Mode Prvc Mechanical Rate 14 FiO2 100.0 Tidal Volume 450 PEEP 5 Crit Value Called To Dr triplett Crit Value Called By Mitchel eason Crit Value Read Back Y Blood Gas Notified Time 1619 Sodium 137.0 Potassium Chloride 115.0 H Carbon Dioxide Anion Gap BUN Creatinine Est GFR ( Amer) Est GFR (Non-Af Amer) POC Glucose (mg/dL) Random Glucose Calcium Phosphorus Magnesium Total Bilirubin AST ALT Alkaline Phosphatase Ammonia Total Creatine Kinase CK-MB (Mass) Troponin I Total Protein Albumin Globulin Albumin/Globulin Ratio Arterial Blood Potassium 2.9 L Venous Blood Potassium Urine Color Urine Clarity Urine pH Ur Specific [place] Urine Protein Urine Glucose (UA) Urine Ketones Urine Blood Urine Nitrate Urine Bilirubin Urine Urobilinogen Ur Leukocyte Esterase Urine WBC (Auto) Urine RBC (Auto) Urine WBC Clumps (Auto) Ur Squamous Epith Cells Amorphous Sediment Urine Bacteria Salicylates Urine Opiates Screen Urine Methadone Screen Acetaminophen Ur Barbiturates Screen Ur Phencyclidine Scrn Ur Amphetamines Screen U Benzodiazepines Scrn U Oth Cocaine Metabols U Cannabinoids Screen
[2018-07-31] MEDS: Bacitracin 500 Units/gm Oint Foilpak UD TOP SCH (22:57)
[2018-08-01] MEDS: Piperacill/Tazo 3.375gm in Dex 3.375 GM/50 ML BAG IVPB SCH ×5 (00:07→23:43)
[2018-08-01] MEDS: Albuterol-Ipratrop 3 mg / 0.5 (3 ml) UD INH SCH ×4 (02:19→20:11)
[2018-08-01] MEDS: MethylPREDNISolone 40 mg Vial IVP SCH ×4 (03:07→21:58)
[2018-08-01 05:51] LABS: BASO # 0.1 K/uL (0.0-0.2); BASO % 0.7 % (0.0-2.0); EOS % 0.1 % (0.0-4.0); HEMOGLOBIN 9.7 g/dL (11.0-16.0); LYMPH # 0.2 K/uL (1.0-4.3); LYMPH % 2.1 % (20.0-40.0); MEAN CELL VOLUME 93.8 fL (81.0-99.0); MEAN CORPUSCULAR HEMOGLOBIN 31.1 pg (27.0-31.0); MEAN CORPUSCULAR HGB CONC 33.2 g/dL (33.0-37.0); MEAN PLATELET VOLUME 8.7 fL (7.2-11.7); MONO # 0.3 K/uL (0.0-0.8); MONO % 2.5 % (0.0-10.0); NEUT # 10.4 K/uL (1.8-7.0); NEUT % 94.6 % (50.0-75.0); NRBC % 0.1 % (0.0-2.0); PLATELET COUNT 232 K/uL (130-400); RBC 3.11 Mil/uL (3.80-5.20); RED CELL DISTRIBUTION WIDTH 14.3 % (11.5-14.5)
[2018-08-01] MEDS: Pantoprazole 40 mg Susp UD PO SCH (05:55)
[2018-08-01 06:11] LABS: ALB/GLOB RATIO 0.9 (1.0-2.1); ALBUMIN 2.7 g/dL (3.5-5.0); CALCIUM 7.3 mg/dl (8.6-10.4)
[2018-08-01 06:13] LABS: ABG ALLEN TEST POS; ARTERIAL BLOOD GAS HCO3 16.5 mmol/L (21-28); ARTERIAL BLOOD GAS HEMOGLOBIN 12.7 g/dL (11.7-17.4); ARTERIAL BLOOD GAS O2 SAT 98.9 % (95-98); ARTERIAL BLOOD GAS PCO2 29 mm/Hg (35-45); ARTERIAL BLOOD GAS PO2 140 mm/Hg (80-100); ARTERIAL BLOOD GAS TCO2 15.2 mmol/L (22-28)
[2018-08-01] MEDS: Potassium Chloride 20 mEq/15 ml LIQ UD PO SCH ×2 (07:59→10:24)
[2018-08-01 08:18] LABS: HEPATITIS B SURFACE AG Negative (NEGATIVE)
[2018-08-01 08:22] LABS: BANDS 16 % (0-2); LYMPHOCYTE 2 % (20-40); MONOCYTE 3 % (0-10); NEUTROPHIL 79 % (50-75); PLATELET ESTIMATE NORMAL (NORMAL); TOTAL CELLS COUNTED 100
[2018-08-01 08:23] LABS: HYPOCHROMIC SLIGHT; POLYCHROMIC SLIGHT
[2018-08-01 08:35] LABS: HEPATITIS C ANTIBODY NEGATIVE (NEGATIVE)
--- NOTE | 2018-08-01 08:37 | RAD ---
Date of service: 08/01/2018 HISTORY: Intubation COMPARISON: 07/31/2018. FINDINGS: Endotracheal tube terminates 3 cm proximal to the ede. LUNGS: There is interval near complete opacification of the left lung. There is subsegmental atelectasis in the right lower lobe. PLEURA: No significant pleural effusion identified, no pneumothorax apparent. CARDIOVASCULAR: Cannot be evaluated due to opacification of the left hemithorax. There is patient rotation to the left, there is apparent mediastinum and trachea to the left OSSEOUS STRUCTURES: No significant abnormalities. VISUALIZED UPPER ABDOMEN: Normal. OTHER FINDINGS: None. IMPRESSION: Interval near complete opacification of the left hemithorax with apparent shift of mediastinum and trachea to the left suspicious for left lung collapse.
[2018-08-01] MEDS: Bacitracin 500 Units/gm Oint Foilpak UD TOP SCH ×2 (10:23→17:30)
[2018-08-01] MEDS: Sodium Chloride 0.9% 1,000 ML IV SCH (11:00)
--- NOTE | 2018-08-01 12:59 | CP.PCM.CON ---
History of Present Illness - History of Present Illness History of Present Illness: Nephrology Consultation Note Assessment: critical Acute Kidney Injury (N17.9) likely due to ATN Hypertensive Chronic Kidney Disease (I12.9) Chronic Kidney Disease (N18.9) Stage ? with ? mg proteinuria (R80.9) likely due to HTN Anemia (D64.9), Hyperphosphatemia (E83.39) left lung collapse, UTI Mitral Regurg, depression/Anxiety Plan pt BP on low side, defer HD today, she had 1st session 07/31/18. plan for next HD likely tomorrow Maintain hemodynamics stable. Avoid hypotension. Patient not on ACEI/ARB due to recent ROBIN Monitor Input/Output, daily weights and renal function with basic metabolic panel sodium bicarb for today Check urine analysis, spot protein/creatinine, albumin/creatinine ratio. Pending renal sonogram. CPK Check GN work up as C3, C4, LINDSEY, Anti dsDNA, ASO titers, ANCA (MPO and NH-3), Anti GBM antibody, HIV Anemia work up with TSAT/Ferritin/Vitamin B12/folate, serum protein electro phoresis with immunofixation, serum free light chain assay (Zumbrota/Lambda) Check for 25-OH vitamin D, iPTH, phosphorus level. Dose meds/antibiotics for reduced GFR. Avoid fleets enema/magnesium based laxatives. Avoid nephrotoxins/NSAIDs/ iodinated contrast (unless needed emergently) Glycemic control Further work up for as per primary team Thanks for allowing me to participate in care of your patient. Will follow patient with you. Please call if any Qs. had [email or web address] team Dr Heriberto Hernandez Office: [phone] Subjective: Noted events overnight. Patients intubated and sedated. on 60% FiO2 Physical Examination: General Appearance: Comfortable, in no acute respiratory distress, intubated Vitals reviewed and noted as below Head; Atraumatic, normocephalic ENT: oally intubated EYES: Pupils are equal, round and reactive to light accommodation. Eye muscles and extraocular movement intact. Sclera is anicteric. Neck; supple no lymphadenopathy, no thyromegaly or bruit Lungs: Normal respiratory rate/effort. Breath sounds reduced at left side Heart: Increased rate. s1s2 normal. No rub or gallop. SM + at apex Extremities: 1-2+ edema. No varicose veins Neurological: Patient is sedated Skin: Warm and dry. Normal turgor. No rash. Palpitation: Normal elasticity for age Abdomen: Abdomen is soft. Bowel sounds +. There is no abdominal tenderness, no guarding/rigidity no organomegaly Psych: unable MSK: no joint tenderness or swelling. Digits and nails normal, no deformity : kidney or bladder not palpable access: femoral shiley Labs/imaging reviewed. Past medical history, past surgical history, family history, social history, allergy reviewed and noted as below Family hx: no hx of CKD. Rest non-contributory work up: CXR: left lung collapse Hep B/C neg UA 2+ protein 1+ blood Past Patient History - Past Medical History & Family History Past Medical History?: Yes - Past Social History Smoking Status: Unknown If Ever Smoked - CARDIAC Hx Hypertension: Yes - MUSCULOSKELETAL/RHEUMATOLOGICAL Hx Falls: No - PSYCHIATRIC Hx Depression: Yes Hx Substance Use: (unknown) - ANESTHESIA Hx Anesthesia: No Hx Anesthesia Reactions: No Hx Malignant Hyperthermia: No Has any member of the family had a problem w/ anesthesia?: No Meds Allergies/Adverse Reactions: Allergies Allergy/AdvReac Type Severity Reaction Status Date / Time No Known Allergies Allergy Verified 07/31/18 15:33 - Medications Medications: Current Medications Albuterol/Ipratropium (Duoneb 3 Mg/0.5 Mg (3 Ml) Ud) 3 ml INH RQ6 JOSE Last Admin: 08/01/18 07:38 Dose: 3 ml Bacitracin (Bacitracin) 1 ea TOP BID JOSE Stop: 08/07/18 20:01 Last Admin: 08/01/18 10:23 Dose: 1 ea Calcium Acet[facility] (Phoslo) [facility] Last Admin: 08/01/18 07:59 Dose: 2,001 mg Heparin Sodium (Porcine) (Heparin) 5,000 units SC Q8 JOSE Last Admin: 08/01/18 05:55 Dose: 5,000 units Piperacillin Sod/Tazobactam Sod (Zosyn 3.375 Gm Iv Premix) 3.375 gm in 50 mls @ 100 mls/hr IVPB Q6H JOSE; Protocol Last Admin: 08/01/18 05:55 Dose: 100 mls/hr Sodium Chloride (Sodium Chloride 0.9%) 1,000 mls @ 50 mls/hr IV .Q20H JOSE Methylprednisolone (Solu-Medrol) 40 mg IVP Q12H JOSE Last Admin: 08/01/18 10:27 Dose: 40 mg Pantoprazole Sodium (Protonix Susp) 40 mg PO 0600 JOSE Last Admin: 08/01/18 05:55 Dose: 40 mg Results - Vital Signs Recent Vital Signs: Last Vital Signs Temp 100.8 F H 08/01/18 12:00 Pulse 104 H 08/01/18 12:00 Resp 20 08/01/18 12:00 BP 92/51 L 08/01/18 12:00 Pulse Ox 100 08/01/18 12:00 - Labs Result Diagrams: 08/01/18 05:39 08/01/18 05:39 Labs: Laboratory Results - last 24 hr 07/31/18 07/31/18 07/31/18 15:21 15:47 15:47 WBC 12.8 H RBC 2.89 L Hgb 9.2 L Hct 27.6 L MCV 95.4 MCH 31.7 H MCHC 33.3 RDW 14.3 Plt Count 278 MPV 8.2 Neut % (Auto) 89.4 H Lymph % (Auto) 4.9 L Gillespie % (Auto) 5.4 Eos % (Auto) 0.1 Baso % (Auto) 0.2 Neut # (Auto) 11.5 H Lymph # (Auto) 0.6 L Gillespie # (Auto) 0.7 Eos # (Auto) 0.0 Baso # (Auto) 0.0 Neutrophils % (Manual) 91 H Band Neutrophils % 3 H Lymphocytes % (Manual) 4 L Monocytes % (Manual) 2 Platelet Estimate Normal Large Platelets Present Polychromasia Hypochromasia (manual) Slight Anisocytosis (manual) Slight Microcytosis (manual) Slight Macrocytosis (manual) Slight PT 12.1 INR 1.1 APTT 28 Puncture Site pCO2 pO2 HCO3 ABG pH ABG Total CO2 ABG O2 Saturation ABG Base Excess ABG Hemoglobin ABG Carboxyhemoglobin POC ABG HHb (Measured) ABG Methemoglobin Yoan Test ABG Potassium VBG pH VBG pCO2 VBG HCO3 VBG Total CO2 VBG O2 Sat (Calc) VBG Base Excess VBG Potassium A-a O2 Difference Respiratory Index Hgb O2 Saturation Glucose Lactate Vent Mode Mechanical Rate FiO2 Tidal Volume PEEP Crit Value Called To Crit Value Called By Crit Value Read Back Blood Gas Notified Time Sodium Potassium Chloride Carbon Dioxide Anion Gap BUN Creatinine Est GFR ( Amer) Est GFR (Non-Af Amer) POC Glucose (mg/dL) 101 Random Glucose Calcium Phosphorus Magnesium Total Bilirubin AST ALT Alkaline Phosphatase Ammonia Total Creatine Kinase CK-MB (Mass) Troponin I Total Protein Albumin Globulin Albumin/Globulin Ratio Arterial Blood Potassium Venous Blood Potassium Urine Color Urine Clarity Urine pH Ur Specific [place] Urine Protein Urine Glucose (UA) Urine Ketones Urine Blood Urine Nitrate Urine Bilirubin Urine Urobilinogen Ur Leukocyte Esterase Urine WBC (Auto) Urine RBC (Auto) Urine WBC Clumps (Auto) Ur Squamous Epith Cells Amorphous Sediment Urine Bacteria Salicylates Urine Opiates Screen Urine Methadone Screen Acetaminophen Ur Barbiturates Screen Ur Phencyclidine Scrn Ur Amphetamines Screen U Benzodiazepines Scrn U Oth Cocaine Metabols U Cannabinoids Screen Hep Bs Antigen Hep Bs Antibody Hepatitis C Antibody Influenza Typ A,B (EIA) 07/31/18 07/31/18 07/31/18 15:47 15:47 15:51 WBC RBC Hgb Hct MCV MCH MCHC RDW Plt Count MPV Neut % (Auto) Lymph % (Auto) Gillespie % (Auto) Eos % (Auto) Baso % (Auto) Neut # (Auto) Lymph # (Auto) Gillespie # (Auto) Eos # (Auto) Baso # (Auto) Neutrophils % (Manual) Band Neutrophils % Lymphocytes % (Manual) Monocytes % (Manual) Platelet Estimate Large Platelets Polychromasia Hypochromasia (manual) Anisocytosis (manual) Microcytosis (manual) Macrocytosis (manual) PT INR APTT Puncture Site pCO2 pO2 56 H HCO3 ABG pH ABG Total CO2 ABG O2 Saturation ABG Base Excess ABG Hemoglobin ABG Carboxyhemoglobin POC ABG HHb (Measured) ABG Methemoglobin Yoan Test ABG Potassium VBG pH 6.95 L* VBG pCO2 33 L VBG HCO3 5.3 VBG Total CO2 8.3 L VBG O2 Sat (Calc) 87.3 H VBG Base Excess -24.1 L VBG Potassium 3.7 A-a O2 Difference Respiratory Index Hgb O2 Saturation Glucose 102 Lactate 1.0 Vent Mode Mechanical Rate FiO2 Tidal Volume PEEP Crit Value Called To Dane Crit Value Called By Mitchel eason Crit Value Read Back Y Blood Gas Notified Time 1600 Sodium 142 138.0 Potassium 3.6 Chloride 109 H 110.0 H Carbon Dioxide 6 L* Anion Gap 30 H BUN 98 H Creatinine 9.6 H* Est GFR ( Amer) 5 Est GFR (Non-Af Amer) 4 POC Glucose (mg/dL) Random Glucose 105 Calcium 7.6 L Phosphorus 11.1 H Magnesium 2.3 Total Bilirubin 0.4 AST 51 H ALT 31 Alkaline Phosphatase 66 Ammonia 70 H Total Creatine Kinase 1109 H CK-MB (Mass) 27.1 H Troponin I 0.0230 Total Protein 6.4 Albumin 3.1 L Globulin 3.3 Albumin/Globulin Ratio 0.9 L Arterial Blood Potassium Venous Blood Potassium 3.7 Urine Color Urine Clarity Urine pH Ur Specific [place] Urine Protein Urine Glucose (UA) Urine Ketones Urine Blood Urine Nitrate Urine Bilirubin Urine Urobilinogen Ur Leukocyte Esterase Urine WBC (Auto) Urine RBC (Auto) Urine WBC Clumps (Auto) Ur Squamous Epith Cells Amorphous Sediment Urine Bacteria Salicylates Urine Opiates Screen Urine Methadone Screen Acetaminophen Ur Barbiturates Screen Ur Phencyclidine Scrn Ur Amphetamines Screen U Benzodiazepines Scrn U Oth Cocaine Metabols U Cannabinoids Screen Hep Bs Antigen Hep Bs Antibody Hepatitis C Antibody Influenza Typ A,B (EIA) 07/31/18 07/31/18 07/31/18 15:57 16:00 16:00 WBC RBC Hgb Hct MCV MCH MCHC RDW Plt Count MPV Neut % (Auto) Lymph % (Auto) Gillespie % (Auto) Eos % (Auto) Baso % (Auto) Neut # (Auto) Lymph # (Auto) Gillespie # (Auto) Eos # (Auto) Baso # (Auto) Neutrophils % (Manual) Band Neutrophils % Lymphocytes % (Manual) Monocytes % (Manual) Platelet Estimate Large Platelets Polychromasia Hypochromasia (manual) Anisocytosis (manual) Microcytosis (manual) Macrocytosis (manual) PT INR APTT Puncture Site pCO2 pO2 HCO3 ABG pH ABG Total CO2 ABG O2 Saturation ABG Base Excess ABG Hemoglobin ABG Carboxyhemoglobin POC ABG HHb (Measured) ABG Methemoglobin Yoan Test ABG Potassium VBG pH VBG pCO2 VBG HCO3 VBG Total CO2 VBG O2 Sat (Calc) VBG Base Excess VBG Potassium A-a O2 Difference Respiratory Index Hgb O2 Saturation Glucose Lactate Vent Mode Mechanical Rate FiO2 Tidal Volume PEEP Crit Value Called To Crit Value Called By Crit Value Read Back Blood Gas Notified Time Sodium Potassium Chloride Carbon Dioxide Anion Gap BUN Creatinine Est GFR ( Amer) Est GFR (Non-Af Amer) POC Glucose (mg/dL) Random Glucose Calcium Phosphorus Magnesium Total Bilirubin AST ALT Alkaline Phosphatase Ammonia Total Creatine Kinase CK-MB (Mass) Troponin I Total Protein Albumin Globulin Albumin/Globulin Ratio Arterial Blood Potassium Venous Blood Potassium Urine Color Yellow Urine Clarity Turbid Urine pH 6.0 Ur Specific [place] 1.017 Urine Protein 2+ H Urine Glucose (UA) Normal Urine Ketones Negative Urine Blood 1+ H Urine Nitrate Negative Urine Bilirubin 1+ H Urine Urobilinogen Normal Ur Leukocyte Esterase 2+ H Urine WBC (Auto) 2284 H Urine RBC (Auto) 50 H Urine WBC Clumps (Auto) Many H Ur Squamous Epith Cells 36 H Amorphous Sediment Few H Urine Bacteria Many H Salicylates < 1.0 Urine Opiates Screen Positive H Urine Methadone Screen Negative Acetaminophen < 10.0 L Ur Barbiturates Screen Negative Ur Phencyclidine Scrn Negative Ur Amphetamines Screen Negative U Benzodiazepines Scrn Positive U Oth Cocaine Metabols Negative U Cannabinoids Screen Negative Hep Bs Antigen Hep Bs Antibody Hepatitis C Antibody Influenza Typ A,B (EIA) 07/31/18 07/31/18 07/31/18 16:16 20:26 20:57 WBC RBC Hgb Hct MCV MCH MCHC RDW Plt Count MPV Neut % (Auto) Lymph % (Auto) Gillespie % (Auto) Eos % (Auto) Baso % (Auto) Neut # (Auto) Lymph # (Auto) Gillespie # (Auto) Eos # (Auto) Baso # (Auto) Neutrophils % (Manual) Band Neutrophils % Lymphocytes % (Manual) Monocytes % (Manual) Platelet Estimate Large Platelets Polychromasia Hypochromasia (manual) Anisocytosis (manual) Microcytosis (manual) Macrocytosis (manual) PT INR APTT Puncture Site Lr pCO2 27 L pO2 336 H HCO3 5.9 L* ABG pH 6.97 L* ABG Total CO2 7.0 L ABG O2 Saturation 100.0 H ABG Base Excess -24.5 L ABG Hemoglobin ABG Carboxyhemoglobin POC ABG HHb (Measured) ABG Methemoglobin Yoan Test Unable ABG Potassium 2.9 L VBG pH VBG pCO2 VBG HCO3 VBG Total CO2 VBG O2 Sat (Calc) VBG Base Excess VBG Potassium A-a O2 Difference 343.0 Respiratory Index 1.0 Hgb O2 Saturation Glucose 106 H Lactate 0.7 Vent Mode Prvc Mechanical Rate 14 FiO2 100.0 Tidal Volume 450 PEEP 5 Crit Value Called To Dr triplett Crit Value Called By Mitchel eason Crit Value Read Back Y Blood Gas Notified Time 1619 Sodium 137.0 Potassium Chloride 115.0 H Carbon Dioxide Anion Gap BUN Creatinine Est GFR ( Amer) Est GFR (Non-Af Amer) POC Glucose (mg/dL) Random Glucose Calcium Phosphorus Magnesium Total Bilirubin AST ALT Alkaline Phosphatase Ammonia Total Creatine Kinase CK-MB (Mass) Troponin I Total Protein Albumin Globulin Albumin/Globulin Ratio Arterial Blood Potassium 2.9 L Venous Blood Potassium Urine Color Urine Clarity Urine pH Ur Specific [place] Urine Protein Urine Glucose (UA) Urine Ketones Urine Blood Urine Nitrate Urine Bilirubin Urine Urobilinogen Ur Leukocyte Esterase Urine WBC (Auto) Urine RBC (Auto) Urine WBC Clumps (Auto) Ur Squamous Epith Cells Amorphous Sediment Urine Bacteria Salicylates Urine Opiates Screen Urine Methadone Screen Acetaminophen Ur Barbiturates Screen Ur Phencyclidine Scrn Ur Amphetamines Screen U Benzodiazepines Scrn U Oth Cocaine Metabols U Cannabinoids Screen Hep Bs Antigen Negative Hep Bs Antibody Hepatitis C Antibody Negative Influenza Typ A,B (EIA) Negative for flu a/b 07/31/18 08/01/18 08/01/18 20:57 05:39 05:39 WBC 11.0 H RBC 3.11 L Hgb 9.7 L Hct 29.1 L MCV 93.8 MCH 31.1 H MCHC 33.2 RDW 14.3 Plt Count 232 MPV 8.7 Neut % (Auto) 94.6 H Lymph % (Auto) 2.1 L Gillespie % (Auto) 2.5 Eos % (Auto) 0.1 Baso % (Auto) 0.7 Neut # (Auto) 10.4 H Lymph # (Auto) 0.2 L Gillespie # (Auto) 0.3 Eos # (Auto) 0.0 Baso # (Auto) 0.1 Neutrophils % (Manual) 79 H Band Neutrophils % 16 H* Lymphocytes % (Manual) 2 L Monocytes % (Manual) 3 Platelet Estimate Normal Large Platelets Polychromasia Slight Hypochromasia (manual) Slight Anisocytosis (manual) Microcytosis (manual) Macrocytosis (manual) PT INR APTT Puncture Site pCO2 pO2 HCO3 ABG pH ABG Total CO2 ABG O2 Saturation ABG Base Excess ABG Hemoglobin ABG Carboxyhemoglobin POC ABG HHb (Measured) ABG Methemoglobin Yoan Test ABG Potassium VBG pH VBG pCO2 VBG HCO3 VBG Total CO2 VBG O2 Sat (Calc) VBG Base Excess VBG Potassium A-a O2 Difference Respiratory Index Hgb O2 Saturation Glucose Lactate Vent Mode Mechanical Rate FiO2 Tidal Volume PEEP Crit Value Called To Crit Value Called By Crit Value Read Back Blood Gas Notified Time Sodium 146 Potassium 3.0 L Chloride 108 H Carbon Dioxide 16 L Anion Gap 25 H BUN 55 H Creatinine 5.3 H Est GFR ( Amer) 10 Est GFR (Non-Af Amer) 8 POC Glucose (mg/dL) Random Glucose 113 H Calcium 7.3 L Phosphorus 5.6 H Magnesium 1.9 Total Bilirubin 0.4 AST 55 H ALT 33 Alkaline Phosphatase 54 Ammonia Total Creatine Kinase CK-MB (Mass) Troponin I Total Protein 5.7 L Albumin 2.7 L Globulin 3.0 Albumin/Globulin Ratio 0.9 L Arterial Blood Potassium Venous Blood Potassium Urine Color Urine Clarity Urine pH Ur Specific [place] Urine Protein Urine Glucose (UA) Urine Ketones Urine Blood Urine Nitrate Urine Bilirubin Urine Urobilinogen Ur Leukocyte Esterase Urine WBC (Auto) Urine RBC (Auto) Urine WBC Clumps (Auto) Ur Squamous Epith Cells Amorphous Sediment Urine Bacteria Salicylates Urine Opiates Screen Urine Methadone Screen Acetaminophen Ur Barbiturates Screen Ur Phencyclidine Scrn Ur Amphetamines Screen U Benzodiazepines Scrn U Oth Cocaine Metabols U Cannabinoids Screen Hep Bs Antigen Hep Bs Antibody Negative Hepatitis C Antibody Influenza Typ A,B (EIA) 08/01/18 08/01/18 08/01/18 05:40 08:33 08:33 WBC RBC Hgb Hct MCV MCH MCHC RDW Plt Count MPV Neut % (Auto) Lymph % (Auto) Gillespie % (Auto) Eos % (Auto) Baso % (Auto) Neut # (Auto) Lymph # (Auto) Gillespie # (Auto) Eos # (Auto) Baso # (Auto) Neutrophils % (Manual) Band Neutrophils % Lymphocytes % (Manual) Monocytes % (Manual) Platelet Estimate Large Platelets Polychromasia Hypochromasia (manual) Anisocytosis (manual) Microcytosis (manual) Macrocytosis (manual) PT INR APTT Puncture Site Lradal pCO2 29 L pO2 140 H HCO3 16.5 L ABG pH 7.30 L ABG Total CO2 15.2 L ABG O2 Saturation 98.9 H ABG Base Excess -10.8 L ABG Hemoglobin 12.7 ABG Carboxyhemoglobin 0.8 POC ABG HHb (Measured) 1.1 ABG Methemoglobin 1.2 Yoan Test Pos ABG Potassium VBG pH VBG pCO2 VBG HCO3 VBG Total CO2 VBG O2 Sat (Calc) VBG Base Excess VBG Potassium A-a O2 Difference 252.0 Respiratory Index 1.8 Hgb O2 Saturation 96.8 Glucose Lactate Vent Mode Prvc Mechanical Rate 20 FiO2 60.0 Tidal Volume 450 PEEP Crit Value Called To Crit Value Called By Crit Value Read Back Blood Gas Notified Time Sodium Potassium Chloride Carbon Dioxide Anion Gap BUN Creatinine Est GFR ( Amer) Est GFR (Non-Af Amer) POC Glucose (mg/dL) Random Glucose Calcium Phosphorus Magnesium Total Bilirubin AST ALT Alkaline Phosphatase Ammonia 19 D Total Creatine Kinase CK-MB (Mass) 12.9 H Troponin I Total Protein Albumin Globulin Albumin/Globulin Ratio Arterial Blood Potassium Venous Blood Potassium Urine Color Urine Clarity Urine pH Ur Specific [place] Urine Protein Urine Glucose (UA) Urine Ketones Urine Blood Urine Nitrate Urine Bilirubin Urine Urobilinogen Ur Leukocyte Esterase Urine WBC (Auto) Urine RBC (Auto) Urine WBC Clumps (Auto) Ur Squamous Epith Cells Amorphous Sediment Urine Bacteria Salicylates Urine Opiates Screen Urine Methadone Screen Acetaminophen Ur Barbiturates Screen Ur Phencyclidine Scrn Ur Amphetamines Screen U Benzodiazepines Scrn U Oth Cocaine Metabols U Cannabinoids Screen Hep Bs Antigen Hep Bs Antibody Hepatitis C Antibody Influenza Typ A,B (EIA)
[2018-08-01] MEDS ORDERED: Albumin Human 25% (12.5 gm/50 ml) IV ONE (14:30)
--- NOTE | 2018-08-01 15:08 | US ---
Date of service: 08/01/2018 PROCEDURE: Ultrasound of the Kidneys HISTORY: arf COMPARISON: None available. TECHNIQUE: Sonogram of the kidneys. FINDINGS: RIGHT KIDNEY: Measures: 10.9 x 4.6 x 5.3 cm. No hydronephrosis or obstructing calculus identified. LEFT KIDNEY: Measures: 10.5 x 4.6 x 4.6 cm. No hydronephrosis or obstructing calculus identified. OTHER FINDINGS: Decompressed urinary bladder with [place] catheter. IMPRESSION: No obstructing calculus or hydronephrosis identified. Decompressed urinary bladder with [place] catheter.
--- NOTE | 2018-08-01 15:28 | CP.CCUPN ---
<Orestes Hernandez - Last Filed: 08/01/18 17:10> CCU Subjective - Physician Review Subjective (Free Text): 08/01/18 15:18 Pt seen aned examined at bedside. pt unable to provide a ROS. Pt s/p birdie with Dr bauer, to get HD today. [facility] CCU Objective - Vital Signs / Intake & Output Vital Signs (Last 4 hours): Vital Signs Temp Pulse Resp BP Pulse Ox 08/01/18 14:00 110 H 22 106/51 L 100 08/01/18 13:00 95 H 20 70/51 L 99 08/01/18 12:59 95 H 20 99 08/01/18 12:00 100.8 F H 104 H 20 92/51 L 100 Intake and Output (Last 8hrs): Intake & Output 08/01/18 08/01/18 08/01/18 06:59 14:59 22:59 Intake Total 590 390 Output Total 90 Balance 590 300 Weight 161 lb 3.2 oz Intake: Intake, IV Amount 590 390 Right Antecubital 590 390 Output: Urine 90 Urethral (White) 90 - Physical Exam Other physical findings (Free Text): - Head Exam Head Exam: ATRAUMATIC, NORMAL INSPECTION, NORMOCEPHALIC - Eye Exam Eye Exam: Normal appearance Pupil Exam: PERRL - ENT Exam ENT Exam: Mucous Membranes Moist - Neck Exam Neck exam: Positive for: Normal Inspection - Respiratory Exam Respiratory Exam: Clear to Auscultation Bilateral, NORMAL BREATHING PATTERN - Cardiovascular Exam Cardiovascular Exam: REGULAR RHYTHM - GI/Abdominal Exam GI & Abdominal Exam: Normal Bowel Sounds, Soft. absent: Tenderness - Medications Active Medications: Active Medications Generic Name Dose Route Start Last Admin Trade Name Freq PRN Reason Stop Dose Admin Albuterol/Ipratropium 3 ml 08/01/18 02:00 08/01/18 13:05 Duoneb 3 Mg/0.5 Mg (3 Ml) Ud INH 3 ml RQ6 JOSE Administration Bacitracin 1 ea 07/31/18 20:00 08/01/18 10:23 Bacitracin TOP 08/07/18 20:01 1 ea BID JOSE Administration Calcium Acetate 2,001 mg 08/01/18 08:00 08/01/18 07:59 Phoslo PO 2,001 mg TIDCC JOSE Administration Heparin Sodium (Porcine) 5,000 units 07/31/18 22:00 08/01/18 05:55 Heparin SC 5,000 units Q8 JOSE Administration Piperacillin Sod/Tazobactam Sod 3.375 gm in 50 mls @ 100 mls/hr 07/31/18 18:30 08/01/18 05:55 Zosyn 3.375 Gm Iv Premix IVPB 100 mls/hr Q6H JOSE Administration Protocol Sodium Chloride 1,000 mls @ 50 mls/hr 08/01/18 10:30 Sodium Chloride 0.9% IV .Q20H JOSE Methylprednisolone 40 mg 08/01/18 10:00 08/01/18 10:27 Solu-Medrol IVP 40 mg Q12H JOSE Administration Pantoprazole Sodium 40 mg 08/01/18 06:00 08/01/18 05:55 Protonix Susp PO 40 mg 0600 JOSE Administration Sodium Bicarbonate 1,300 mg 08/01/18 14:00 Sodium Bicarbonate Tab PO 08/01/18 22:01 QID [facility] - Patient Studies Lab Studies: Microbiology Studies 07/31/18 20:57 Gram Stain - Final Abscess - Groin Wound Culture - Preliminary Gram Positive Cocci 07/31/18 20:26 Gram Stain - Final Groin Wound Culture - Preliminary Gram Positive Cocci 07/31/18 16:00 Urine Culture - Preliminary Urine,Catheterized Gram Negative Faisal Lab Studies 08/01/18 08/01/18 08/01/18 Range/Units 08:33 08:33 05:40 WBC (4.8-10.8) K/uL RBC (3.80-5.20) Mil/uL Hgb (11.0-16.0) g/dL Hct (34.0-47.0) % MCV (81.0-99.0) fL MCH (27.0-31.0) pg MCHC (33.0-37.0) g/dL RDW (11.5-14.5) % Plt Count (130-400) K/uL MPV (7.2-11.7) fL Neut % (Auto) (50.0-75.0) % Lymph % (Auto) (20.0-40.0) % Hardin % (Auto) (0.0-10.0) % Eos % (Auto) (0.0-4.0) % Baso % (Auto) (0.0-2.0) % Neut # (Auto) (1.8-7.0) K/uL Lymph # (Auto) (1.0-4.3) K/uL Hardin # (Auto) (0.0-0.8) K/uL Eos # (Auto) (0.0-0.7) K/uL Baso # (Auto) (0.0-0.2) K/uL Neutrophils % (Manual) (50-75) % Band Neutrophils % (0-2) % Lymphocytes % (Manual) (20-40) % Monocytes % (Manual) (0-10) % Platelet Estimate (NORMAL) Large Platelets Polychromasia Hypochromasia (manual) Anisocytosis (manual) Microcytosis (manual) Macrocytosis (manual) PT (9.7-12.2) SECONDS INR APTT (21-34) SECONDS Puncture Site Lradal pCO2 29 L (35-45) mm/Hg pO2 140 H (30-55) mm/Hg HCO3 16.5 L (21-28) mmol/L ABG pH 7.30 L (7.35-7.45) ABG Total CO2 15.2 L (22-28) mmol/L ABG O2 Saturation 98.9 H (95-98) % ABG Base Excess -10.8 L (-2.0-3.0) mmol/L ABG Hemoglobin 12.7 (11.7-17.4) g/dL ABG Carboxyhemoglobin 0.8 (0.5-1.5) % POC ABG HHb (Measured) 1.1 (0.0-5.0) % ABG Methemoglobin 1.2 (0.0-3.0) % Yoan Test Pos ABG Potassium (3.6-5.2) mmol/L VBG pH (7.32-7.43) VBG pCO2 (40-60) mmHg VBG HCO3 mmol/L VBG Total CO2 (22-28) mmol/L VBG O2 Sat (Calc) (40-65) % VBG Base Excess (0.0-2.0) mmol/L VBG Potassium (3.6-5.2) mmol/L A-a O2 Difference 252.0 mm/Hg Respiratory Index 1.8 Hgb O2 Saturation 96.8 (95.0-98.0) % Glucose (65-105) mg/dl Lactate (0.7-2.1) mmol/L Vent Mode Prvc Mechanical Rate 20 FiO2 60.0 % Tidal Volume 450 PEEP Crit Value Called To Crit Value Called By Crit Value Read Back Blood Gas Notified Time Sodium (132-148) mmol/L Potassium (3.6-5.2) mmol/L Chloride (98-107) mmol/L Carbon Dioxide (22-30) mmol/L Anion Gap (10-20) BUN (7-17) mg/dL Creatinine (0.7-1.2) mg/dL Est GFR ( Amer) Est GFR (Non-Af Amer) POC Glucose (mg/dL) (65-110) mg/dL Random Glucose (65-105) mg/dL Calcium (8.6-10.4) mg/dl Phosphorus (2.5-4.5) mg/dL Magnesium (1.6-2.3) mg/dL Total Bilirubin (0.2-1.3) mg/dL AST (14-36) U/L ALT (9-52) U/L Alkaline Phosphatase (38-126) U/L Ammonia 19 D (9-33) umol/L Total Creatine Kinase (30-135) U/L CK-MB (Mass) 12.9 H (0.0-3.38) ng/mL Troponin I (0.00-0.120) ng/mL Total Protein (6.3-8.3) g/dL Albumin (3.5-5.0) g/dL Globulin (2.2-3.9) gm/dL Albumin/Globulin Ratio (1.0-2.1) Arterial Blood Potassium (3.6-5.2) mmol/L Venous Blood Potassium (3.6-5.2) mmol/L Urine Color (YELLOW) Urine Clarity (Clear) Urine pH (5.0-8.0) Ur Specific Mcnabb (1.003-1.030) Urine Protein (NEGATIVE) mg/dL Urine Glucose (UA) (Normal) mg/dL Urine Ketones (NEGATIVE) mg/dL Urine Blood (NEGATIVE) Urine Nitrate (NEGATIVE) Urine Bilirubin (NEGATIVE) Urine Urobilinogen (0.2-1.0) mg/dL Ur Leukocyte Esterase (Negative) Audelia/uL Urine WBC (Auto) (0-5) /hpf Urine RBC (Auto) (0-3) /hpf Urine WBC Clumps (Auto) (NONE) /hpf Ur Squamous Epith Cells (0-5) /hpf Amorphous Sediment (<OCC) /ul Urine Bacteria (<OCC) Salicylates mg/dL 1 Urine Opiates Screen (NEGATIVE) Urine Methadone Screen (NEGATIVE) Acetaminophen (10.0-30.0) ug/mL Ur Barbiturates Screen (NEGATIVE) Ur Phencyclidine Scrn (NEGATIVE) Ur Amphetamines Screen (NEGATIVE) U Benzodiazepines Scrn (NEGATIVE) U Oth Cocaine Metabols (NEGATIVE) U Cannabinoids Screen (NEGATIVE) Hep Bs Antigen (NEGATIVE) Hep Bs Antibody (NEGATIVE) Hepatitis C Antibody (NEGATIVE) Influenza Typ A,B (EIA) (NEGATIVE) 08/01/18 08/01/18 07/31/18 Range/Units 05:39 05:39 20:57 WBC 11.0 H (4.8-10.8) K/uL RBC 3.11 L (3.80-5.20) Mil/uL Hgb 9.7 L (11.0-16.0) g/dL Hct 29.1 L (34.0-47.0) % MCV 93.8 (81.0-99.0) fL MCH 31.1 H (27.0-31.0) pg MCHC 33.2 (33.0-37.0) g/dL RDW 14.3 (11.5-14.5) % Plt Count 232 (130-400) K/uL MPV 8.7 (7.2-11.7) fL Neut % (Auto) 94.6 H (50.0-75.0) % Lymph % (Auto) 2.1 L (20.0-40.0) % Hardin % (Auto) 2.5 (0.0-10.0) % Eos % (Auto) 0.1 (0.0-4.0) % Baso % (Auto) 0.7 (0.0-2.0) % Neut # (Auto) 10.4 H (1.8-7.0) K/uL Lymph # (Auto) 0.2 L (1.0-4.3) K/uL Hardin # (Auto) 0.3 (0.0-0.8) K/uL Eos # (Auto) 0.0 (0.0-0.7) K/uL Baso # (Auto) 0.1 (0.0-0.2) K/uL Neutrophils % (Manual) 79 H (50-75) % Band Neutrophils % 16 H* (0-2) % Lymphocytes % (Manual) 2 L (20-40) % Monocytes % (Manual) 3 (0-10) % Platelet Estimate Normal (NORMAL) Large Platelets Polychromasia Slight Hypochromasia (manual) Slight Anisocytosis (manual) Microcytosis (manual) Macrocytosis (manual) PT (9.7-12.2) SECONDS INR APTT (21-34) SECONDS Puncture Site pCO2 (35-45) mm/Hg pO2 (30-55) mm/Hg HCO3 (21-28) mmol/L ABG pH (7.35-7.45) ABG Total CO2 (22-28) mmol/L ABG O2 Saturation (95-98) % ABG Base Excess (-2.0-3.0) mmol/L ABG Hemoglobin (11.7-17.4) g/dL ABG Carboxyhemoglobin (0.5-1.5) % POC ABG HHb (Measured) (0.0-5.0) % ABG Methemoglobin (0.0-3.0) % Yoan Test ABG Potassium (3.6-5.2) mmol/L VBG pH (7.32-7.43) VBG pCO2 (40-60) mmHg VBG HCO3 mmol/L VBG Total CO2 (22-28) mmol/L VBG O2 Sat (Calc) (40-65) % VBG Base Excess (0.0-2.0) mmol/L VBG Potassium (3.6-5.2) mmol/L A-a O2 Difference mm/Hg Respiratory Index Hgb O2 Saturation (95.0-98.0) % Glucose (65-105) mg/dl Lactate (0.7-2.1) mmol/L Vent Mode Mechanical Rate FiO2 % Tidal Volume PEEP Crit Value Called To Crit Value Called By Crit Value Read Back Blood Gas Notified Time Sodium 146 (132-148) mmol/L Potassium 3.0 L (3.6-5.2) mmol/L Chloride 108 H (98-107) mmol/L Carbon Dioxide 16 L (22-30) mmol/L Anion Gap 25 H (10-20) BUN 55 H (7-17) mg/dL Creatinine 5.3 H (0.7-1.2) mg/dL Est GFR ( Amer) 10 Est GFR (Non-Af Amer) 8 POC Glucose (mg/dL) (65-110) mg/dL Random Glucose 113 H (65-105) mg/dL Calcium 7.3 L (8.6-10.4) mg/dl Phosphorus 5.6 H (2.5-4.5) mg/dL Magnesium 1.9 (1.6-2.3) mg/dL Total Bilirubin 0.4 (0.2-1.3) mg/dL AST 55 H (14-36) U/L ALT 33 (9-52) U/L Alkaline Phosphatase 54 (38-126) U/L Ammonia (9-33) umol/L Total Creatine Kinase (30-135) U/L CK-MB (Mass) (0.0-3.38) ng/mL Troponin I (0.00-0.120) ng/mL Total Protein 5.7 L (6.3-8.3) g/dL Albumin 2.7 L (3.5-5.0) g/dL Globulin 3.0 (2.2-3.9) gm/dL Albumin/Globulin Ratio 0.9 L (1.0-2.1) Arterial Blood Potassium (3.6-5.2) mmol/L Venous Blood Potassium (3.6-5.2) mmol/L Urine Color (YELLOW) Urine Clarity (Clear) Urine pH (5.0-8.0) Ur Specific Mcnabb (1.003-1.030) Urine Protein (NEGATIVE) mg/dL Urine Glucose (UA) (Normal) mg/dL Urine Ketones (NEGATIVE) mg/dL Urine Blood (NEGATIVE) Urine Nitrate (NEGATIVE) Urine Bilirubin (NEGATIVE) Urine Urobilinogen (0.2-1.0) mg/dL Ur Leukocyte Esterase (Negative) Audelia/uL Urine WBC (Auto) (0-5) /hpf Urine RBC (Auto) (0-3) /hpf Urine WBC Clumps (Auto) (NONE) /hpf Ur Squamous Epith Cells (0-5) /hpf Amorphous Sediment (<OCC) /ul Urine Bacteria (<OCC) Salicylates mg/dL 1 Urine Opiates Screen (NEGATIVE) Urine Methadone Screen (NEGATIVE) Acetaminophen (10.0-30.0) ug/mL Ur Barbiturates Screen (NEGATIVE) Ur Phencyclidine Scrn (NEGATIVE) Ur Amphetamines Screen (NEGATIVE) U Benzodiazepines Scrn (NEGATIVE) U Oth Cocaine Metabols (NEGATIVE) U Cannabinoids Screen (NEGATIVE) Hep Bs Antigen (NEGATIVE) Hep Bs Antibody Negative (NEGATIVE) Hepatitis C Antibody (NEGATIVE) Influenza Typ A,B (EIA) (NEGATIVE) 07/31/18 07/31/18 07/31/18 Range/Units 20:57 20:26 16:16 WBC (4.8-10.8) K/uL RBC (3.80-5.20) Mil/uL Hgb (11.0-16.0) g/dL Hct (34.0-47.0) % MCV (81.0-99.0) fL MCH (27.0-31.0) pg MCHC (33.0-37.0) g/dL RDW (11.5-14.5) % Plt Count (130-400) K/uL MPV (7.2-11.7) fL Neut % (Auto) (50.0-75.0) % Lymph % (Auto) (20.0-40.0) % Hardin % (Auto) (0.0-10.0) % Eos % (Auto) (0.0-4.0) % Baso % (Auto) (0.0-2.0) % Neut # (Auto) (1.8-7.0) K/uL Lymph # (Auto) (1.0-4.3) K/uL Hardin # (Auto) (0.0-0.8) K/uL Eos # (Auto) (0.0-0.7) K/uL Baso # (Auto) (0.0-0.2) K/uL Neutrophils % (Manual) (50-75) % Band Neutrophils % (0-2) % Lymphocytes % (Manual) (20-40) % Monocytes % (Manual) (0-10) % Platelet Estimate (NORMAL) Large Platelets Polychromasia Hypochromasia (manual) Anisocytosis (manual) Microcytosis (manual) Macrocytosis (manual) PT (9.7-12.2) SECONDS INR APTT (21-34) SECONDS Puncture Site Lr pCO2 27 L (35-45) mm/Hg pO2 336 H (30-55) mm/Hg HCO3 5.9 L* (21-28) mmol/L ABG pH 6.97 L* (7.35-7.45) ABG Total CO2 7.0 L (22-28) mmol/L ABG O2 Saturation 100.0 H (95-98) % ABG Base Excess -24.5 L (-2.0-3.0) mmol/L ABG Hemoglobin (11.7-17.4) g/dL ABG Carboxyhemoglobin (0.5-1.5) % POC ABG HHb (Measured) (0.0-5.0) % ABG Methemoglobin (0.0-3.0) % Yoan Test Unable ABG Potassium 2.9 L (3.6-5.2) mmol/L VBG pH (7.32-7.43) VBG pCO2 (40-60) mmHg VBG HCO3 mmol/L VBG Total CO2 (22-28) mmol/L VBG O2 Sat (Calc) (40-65) % VBG Base Excess (0.0-2.0) mmol/L VBG Potassium (3.6-5.2) mmol/L A-a O2 Difference 343.0 mm/Hg Respiratory Index 1.0 Hgb O2 Saturation (95.0-98.0) % Glucose 106 H (65-105) mg/dl Lactate 0.7 (0.7-2.1) mmol/L Vent Mode Prvc Mechanical Rate 14 FiO2 100.0 % Tidal Volume 450 PEEP 5 Crit Value Called To Dr triplett Crit Value Called By Mitchel eason Crit Value Read Back Y Blood Gas Notified Time 1619 Sodium 137.0 (132-148) mmol/L Potassium (3.6-5.2) mmol/L Chloride 115.0 H (98-107) mmol/L Carbon Dioxide (22-30) mmol/L Anion Gap (10-20) BUN (7-17) mg/dL Creatinine (0.7-1.2) mg/dL Est GFR ( Amer) Est GFR (Non-Af Amer) POC Glucose (mg/dL) (65-110) mg/dL Random Glucose (65-105) mg/dL Calcium (8.6-10.4) mg/dl Phosphorus (2.5-4.5) mg/dL Magnesium (1.6-2.3) mg/dL Total Bilirubin (0.2-1.3) mg/dL AST (14-36) U/L ALT (9-52) U/L Alkaline Phosphatase (38-126) U/L Ammonia (9-33) umol/L Total Creatine Kinase (30-135) U/L CK-MB (Mass) (0.0-3.38) ng/mL Troponin I (0.00-0.120) ng/mL Total Protein (6.3-8.3) g/dL Albumin (3.5-5.0) g/dL Globulin (2.2-3.9) gm/dL Albumin/Globulin Ratio (1.0-2.1) Arterial Blood Potassium 2.9 L (3.6-5.2) mmol/L Venous Blood Potassium (3.6-5.2) mmol/L Urine Color (YELLOW) Urine Clarity (Clear) Urine pH (5.0-8.0) Ur Specific Mcnabb (1.003-1.030) Urine Protein (NEGATIVE) mg/dL Urine Glucose (UA) (Normal) mg/dL Urine Ketones (NEGATIVE) mg/dL Urine Blood (NEGATIVE) Urine Nitrate (NEGATIVE) Urine Bilirubin (NEGATIVE) Urine Urobilinogen (0.2-1.0) mg/dL Ur Leukocyte Esterase (Negative) Audelia/uL Urine WBC (Auto) (0-5) /hpf Urine RBC (Auto) (0-3) /hpf Urine WBC Clumps (Auto) (NONE) /hpf Ur Squamous Epith Cells (0-5) /hpf Amorphous Sediment (<OCC) /ul Urine Bacteria (<OCC) Salicylates mg/dL 1 Urine Opiates Screen (NEGATIVE) Urine Methadone Screen (NEGATIVE) Acetaminophen (10.0-30.0) ug/mL Ur Barbiturates Screen (NEGATIVE) Ur Phencyclidine Scrn (NEGATIVE) Ur Amphetamines Screen (NEGATIVE) U Benzodiazepines Scrn (NEGATIVE) U Oth Cocaine Metabols (NEGATIVE) U Cannabinoids Screen (NEGATIVE) Hep Bs Antigen Negative (NEGATIVE) Hep Bs Antibody (NEGATIVE) Hepatitis C Antibody Negative (NEGATIVE) Influenza Typ A,B (EIA) Negative for flu a/b (NEGATIVE) 07/31/18 07/31/18 07/31/18 Range/Units 16:00 16:00 15:57 WBC (4.8-10.8) K/uL RBC (3.80-5.20) Mil/uL Hgb (11.0-16.0) g/dL Hct (34.0-47.0) % MCV (81.0-99.0) fL MCH (27.0-31.0) pg MCHC (33.0-37.0) g/dL RDW (11.5-14.5) % Plt Count (130-400) K/uL MPV (7.2-11.7) fL Neut % (Auto) (50.0-75.0) % Lymph % (Auto) (20.0-40.0) % Hardin % (Auto) (0.0-10.0) % Eos % (Auto) (0.0-4.0) % Baso % (Auto) (0.0-2.0) % Neut # (Auto) (1.8-7.0) K/uL Lymph # (Auto) (1.0-4.3) K/uL Hardin # (Auto) (0.0-0.8) K/uL Eos # (Auto) (0.0-0.7) K/uL Baso # (Auto) (0.0-0.2) K/uL Neutrophils % (Manual) (50-75) % Band Neutrophils % (0-2) % Lymphocytes % (Manual) (20-40) % Monocytes % (Manual) (0-10) % Platelet Estimate (NORMAL) Large Platelets Polychromasia Hypochromasia (manual) Anisocytosis (manual) Microcytosis (manual) Macrocytosis (manual) PT (9.7-12.2) SECONDS INR APTT (21-34) SECONDS Puncture Site pCO2 (35-45) mm/Hg pO2 (30-55) mm/Hg HCO3 (21-28) mmol/L ABG pH (7.35-7.45) ABG Total CO2 (22-28) mmol/L ABG O2 Saturation (95-98) % ABG Base Excess (-2.0-3.0) mmol/L ABG Hemoglobin (11.7-17.4) g/dL ABG Carboxyhemoglobin (0.5-1.5) % POC ABG HHb (Measured) (0.0-5.0) % ABG Methemoglobin (0.0-3.0) % Yoan Test ABG Potassium (3.6-5.2) mmol/L VBG pH (7.32-7.43) VBG pCO2 (40-60) mmHg VBG HCO3 mmol/L VBG Total CO2 (22-28) mmol/L VBG O2 Sat (Calc) (40-65) % VBG Base Excess (0.0-2.0) mmol/L VBG Potassium (3.6-5.2) mmol/L A-a O2 Difference mm/Hg Respiratory Index Hgb O2 Saturation (95.0-98.0) % Glucose (65-105) mg/dl Lactate (0.7-2.1) mmol/L Vent Mode Mechanical Rate FiO2 % Tidal Volume PEEP Crit Value Called To Crit Value Called By Crit Value Read Back Blood Gas Notified Time Sodium (132-148) mmol/L Potassium (3.6-5.2) mmol/L Chloride (98-107) mmol/L Carbon Dioxide (22-30) mmol/L Anion Gap (10-20) BUN (7-17) mg/dL Creatinine (0.7-1.2) mg/dL Est GFR ( Amer) Est GFR (Non-Af Amer) POC Glucose (mg/dL) (65-110) mg/dL Random Glucose (65-105) mg/dL Calcium (8.6-10.4) mg/dl Phosphorus (2.5-4.5) mg/dL Magnesium (1.6-2.3) mg/dL Total Bilirubin (0.2-1.3) mg/dL AST (14-36) U/L ALT (9-52) U/L Alkaline Phosphatase (38-126) U/L Ammonia (9-33) umol/L Total Creatine Kinase (30-135) U/L CK-MB (Mass) (0.0-3.38) ng/mL Troponin I (0.00-0.120) ng/mL Total Protein (6.3-8.3) g/dL Albumin (3.5-5.0) g/dL Globulin (2.2-3.9) gm/dL Albumin/Globulin Ratio (1.0-2.1) Arterial Blood Potassium (3.6-5.2) mmol/L Venous Blood Potassium (3.6-5.2) mmol/L Urine Color Yellow (YELLOW) Urine Clarity Turbid (Clear) Urine pH 6.0 (5.0-8.0) Ur Specific Mcnabb 1.017 (1.003-1.030) Urine Protein 2+ H (NEGATIVE) mg/dL Urine Glucose (UA) Normal (Normal) mg/dL Urine Ketones Negative (NEGATIVE) mg/dL Urine Blood 1+ H (NEGATIVE) Urine Nitrate Negative (NEGATIVE) Urine Bilirubin 1+ H (NEGATIVE) Urine Urobilinogen Normal (0.2-1.0) mg/dL Ur Leukocyte Esterase 2+ H (Negative) Audelia/uL Urine WBC (Auto) 2284 H (0-5) /hpf Urine RBC (Auto) 50 H (0-3) /hpf Urine WBC Clumps (Auto) Many H (NONE) /hpf Ur Squamous Epith Cells 36 H (0-5) /hpf Amorphous Sediment Few H (<OCC) /ul Urine Bacteria Many H (<OCC) Salicylates < 1.0 mg/dL 1 Urine Opiates Screen Positive H (NEGATIVE) Urine Methadone Screen Negative (NEGATIVE) Acetaminophen < 10.0 L (10.0-30.0) ug/mL Ur Barbiturates Screen Negative (NEGATIVE) Ur Phencyclidine Scrn Negative (NEGATIVE) Ur Amphetamines Screen Negative (NEGATIVE) U Benzodiazepines Scrn Positive (NEGATIVE) U Oth Cocaine Metabols Negative (NEGATIVE) U Cannabinoids Screen Negative (NEGATIVE) Hep Bs Antigen (NEGATIVE) Hep Bs Antibody (NEGATIVE) Hepatitis C Antibody (NEGATIVE) Influenza Typ A,B (EIA) (NEGATIVE) 07/31/18 07/31/18 07/31/18 Range/Units 15:51 15:47 15:47 WBC (4.8-10.8) K/uL RBC (3.80-5.20) Mil/uL Hgb (11.0-16.0) g/dL Hct (34.0-47.0) % MCV (81.0-99.0) fL MCH (27.0-31.0) pg MCHC (33.0-37.0) g/dL RDW (11.5-14.5) % Plt Count (130-400) K/uL MPV (7.2-11.7) fL Neut % (Auto) (50.0-75.0) % Lymph % (Auto) (20.0-40.0) % Hardin % (Auto) (0.0-10.0) % Eos % (Auto) (0.0-4.0) % Baso % (Auto) (0.0-2.0) % Neut # (Auto) (1.8-7.0) K/uL Lymph # (Auto) (1.0-4.3) K/uL Hardin # (Auto) (0.0-0.8) K/uL Eos # (Auto) (0.0-0.7) K/uL Baso # (Auto) (0.0-0.2) K/uL Neutrophils % (Manual) (50-75) % Band Neutrophils % (0-2) % Lymphocytes % (Manual) (20-40) % Monocytes % (Manual) (0-10) % Platelet Estimate (NORMAL) Large Platelets Polychromasia Hypochromasia (manual) Anisocytosis (manual) Microcytosis (manual) Macrocytosis (manual) PT (9.7-12.2) SECONDS INR APTT (21-34) SECONDS Puncture Site pCO2 (35-45) mm/Hg pO2 56 H (30-55) mm/Hg HCO3 (21-28) mmol/L ABG pH (7.35-7.45) ABG Total CO2 (22-28) mmol/L ABG O2 Saturation (95-98) % ABG Base Excess (-2.0-3.0) mmol/L ABG Hemoglobin (11.7-17.4) g/dL ABG Carboxyhemoglobin (0.5-1.5) % POC ABG HHb (Measured) (0.0-5.0) % ABG Methemoglobin (0.0-3.0) % Yoan Test ABG Potassium (3.6-5.2) mmol/L VBG pH 6.95 L* (7.32-7.43) VBG pCO2 33 L (40-60) mmHg VBG HCO3 5.3 mmol/L VBG Total CO2 8.3 L (22-28) mmol/L VBG O2 Sat (Calc) 87.3 H (40-65) % VBG Base Excess -24.1 L (0.0-2.0) mmol/L VBG Potassium 3.7 (3.6-5.2) mmol/L A-a O2 Difference mm/Hg Respiratory Index Hgb O2 Saturation (95.0-98.0) % Glucose 102 (65-105) mg/dl Lactate 1.0 (0.7-2.1) mmol/L Vent Mode Mechanical Rate FiO2 % Tidal Volume PEEP Crit Value Called To Dane Crit Value Called By Mitchel eason Crit Value Read Back Y Blood Gas Notified Time 1600 Sodium 138.0 142 (132-148) mmol/L Potassium 3.6 (3.6-5.2) mmol/L Chloride 110.0 H 109 H (98-107) mmol/L Carbon Dioxide 6 L* (22-30) mmol/L Anion Gap 30 H (10-20) BUN 98 H (7-17) mg/dL Creatinine 9.6 H* (0.7-1.2) mg/dL Est GFR ( Amer) 5 Est GFR (Non-Af Amer) 4 POC Glucose (mg/dL) (65-110) mg/dL Random Glucose 105 (65-105) mg/dL Calcium 7.6 L (8.6-10.4) mg/dl Phosphorus 11.1 H (2.5-4.5) mg/dL Magnesium 2.3 (1.6-2.3) mg/dL Total Bilirubin 0.4 (0.2-1.3) mg/dL AST 51 H (14-36) U/L ALT 31 (9-52) U/L Alkaline Phosphatase 66 (38-126) U/L Ammonia 70 H (9-33) umol/L Total Creatine Kinase 1109 H (30-135) U/L CK-MB (Mass) 27.1 H (0.0-3.38) ng/mL Troponin I 0.0230 (0.00-0.120) ng/mL Total Protein 6.4 (6.3-8.3) g/dL Albumin 3.1 L (3.5-5.0) g/dL Globulin 3.3 (2.2-3.9) gm/dL Albumin/Globulin Ratio 0.9 L (1.0-2.1) Arterial Blood Potassium (3.6-5.2) mmol/L Venous Blood Potassium 3.7 (3.6-5.2) mmol/L Urine Color (YELLOW) Urine Clarity (Clear) Urine pH (5.0-8.0) Ur Specific Mcnabb (1.003-1.030) Urine Protein (NEGATIVE) mg/dL Urine Glucose (UA) (Normal) mg/dL Urine Ketones (NEGATIVE) mg/dL Urine Blood (NEGATIVE) Urine Nitrate (NEGATIVE) Urine Bilirubin (NEGATIVE) Urine Urobilinogen (0.2-1.0) mg/dL Ur Leukocyte Esterase (Negative) Audelia/uL Urine WBC (Auto) (0-5) /hpf Urine RBC (Auto) (0-3) /hpf Urine WBC Clumps (Auto) (NONE) /hpf Ur Squamous Epith Cells (0-5) /hpf Amorphous Sediment (<OCC) /ul Urine Bacteria (<OCC) Salicylates mg/dL 1 Urine Opiates Screen (NEGATIVE) Urine Methadone Screen (NEGATIVE) Acetaminophen (10.0-30.0) ug/mL Ur Barbiturates Screen (NEGATIVE) Ur Phencyclidine Scrn (NEGATIVE) Ur Amphetamines Screen (NEGATIVE) U Benzodiazepines Scrn (NEGATIVE) U Oth Cocaine Metabols (NEGATIVE) U Cannabinoids Screen (NEGATIVE) Hep Bs Antigen (NEGATIVE) Hep Bs Antibody (NEGATIVE) Hepatitis C Antibody (NEGATIVE) Influenza Typ A,B (EIA) (NEGATIVE) 07/31/18 07/31/18 07/31/18 Range/Units 15:47 15:47 15:21 WBC 12.8 H (4.8-10.8) K/uL RBC 2.89 L (3.80-5.20) Mil/uL Hgb 9.2 L (11.0-16.0) g/dL Hct 27.6 L (34.0-47.0) % MCV 95.4 (81.0-99.0) fL MCH 31.7 H (27.0-31.0) pg MCHC 33.3 (33.0-37.0) g/dL RDW 14.3 (11.5-14.5) % Plt Count 278 (130-400) K/uL MPV 8.2 (7.2-11.7) fL Neut % (Auto) 89.4 H (50.0-75.0) % Lymph % (Auto) 4.9 L (20.0-40.0) % Hardin % (Auto) 5.4 (0.0-10.0) % Eos % (Auto) 0.1 (0.0-4.0) % Baso % (Auto) 0.2 (0.0-2.0) % Neut # (Auto) 11.5 H (1.8-7.0) K/uL Lymph # (Auto) 0.6 L (1.0-4.3) K/uL Hardin # (Auto) 0.7 (0.0-0.8) K/uL Eos # (Auto) 0.0 (0.0-0.7) K/uL Baso # (Auto) 0.0 (0.0-0.2) K/uL Neutrophils % (Manual) 91 H (50-75) % Band Neutrophils % 3 H (0-2) % Lymphocytes % (Manual) 4 L (20-40) % Monocytes % (Manual) 2 (0-10) % Platelet Estimate Normal (NORMAL) Large Platelets Present Polychromasia Hypochromasia (manual) Slight Anisocytosis (manual) Slight Microcytosis (manual) Slight Macrocytosis (manual) Slight PT 12.1 (9.7-12.2) SECONDS INR 1.1 APTT 28 (21-34) SECONDS Puncture Site pCO2 (35-45) mm/Hg pO2 (30-55) mm/Hg HCO3 (21-28) mmol/L ABG pH (7.35-7.45) ABG Total CO2 (22-28) mmol/L ABG O2 Saturation (95-98) % ABG Base Excess (-2.0-3.0) mmol/L ABG Hemoglobin (11.7-17.4) g/dL ABG Carboxyhemoglobin (0.5-1.5) % POC ABG HHb (Measured) (0.0-5.0) % ABG Methemoglobin (0.0-3.0) % Yoan Test ABG Potassium (3.6-5.2) mmol/L VBG pH (7.32-7.43) VBG pCO2 (40-60) mmHg VBG HCO3 mmol/L VBG Total CO2 (22-28) mmol/L VBG O2 Sat (Calc) (40-65) % VBG Base Excess (0.0-2.0) mmol/L VBG Potassium (3.6-5.2) mmol/L A-a O2 Difference mm/Hg Respiratory Index Hgb O2 Saturation (95.0-98.0) % Glucose (65-105) mg/dl Lactate (0.7-2.1) mmol/L Vent Mode Mechanical Rate FiO2 % Tidal Volume PEEP Crit Value Called To Crit Value Called By Crit Value Read Back Blood Gas Notified Time Sodium (132-148) mmol/L Potassium (3.6-5.2) mmol/L Chloride (98-107) mmol/L Carbon Dioxide (22-30) mmol/L Anion Gap (10-20) BUN (7-17) mg/dL Creatinine (0.7-1.2) mg/dL Est GFR ( Amer) Est GFR (Non-Af Amer) POC Glucose (mg/dL) 101 (65-110) mg/dL Random Glucose (65-105) mg/dL Calcium (8.6-10.4) mg/dl Phosphorus (2.5-4.5) mg/dL Magnesium (1.6-2.3) mg/dL Total Bilirubin (0.2-1.3) mg/dL AST (14-36) U/L ALT (9-52) U/L Alkaline Phosphatase (38-126) U/L Ammonia (9-33) umol/L Total Creatine Kinase (30-135) U/L CK-MB (Mass) (0.0-3.38) ng/mL Troponin I (0.00-0.120) ng/mL Total Protein (6.3-8.3) g/dL Albumin (3.5-5.0) g/dL Globulin (2.2-3.9) gm/dL Albumin/Globulin Ratio (1.0-2.1) Arterial Blood Potassium (3.6-5.2) mmol/L Venous Blood Potassium (3.6-5.2) mmol/L Urine Color (YELLOW) Urine Clarity (Clear) Urine pH (5.0-8.0) Ur Specific Mcnabb (1.003-1.030) Urine Protein (NEGATIVE) mg/dL Urine Glucose (UA) (Normal) mg/dL Urine Ketones (NEGATIVE) mg/dL Urine Blood (NEGATIVE) Urine Nitrate (NEGATIVE) Urine Bilirubin (NEGATIVE) Urine Urobilinogen (0.2-1.0) mg/dL Ur Leukocyte Esterase (Negative) Audelia/uL Urine WBC (Auto) (0-5) /hpf Urine RBC (Auto) (0-3) /hpf Urine WBC Clumps (Auto) (NONE) /hpf Ur Squamous Epith Cells (0-5) /hpf Amorphous Sediment (<OCC) /ul Urine Bacteria (<OCC) Salicylates mg/dL 1 Urine Opiates Screen (NEGATIVE) Urine Methadone Screen (NEGATIVE) Acetaminophen (10.0-30.0) ug/mL Ur Barbiturates Screen (NEGATIVE) Ur Phencyclidine Scrn (NEGATIVE) Ur Amphetamines Screen (NEGATIVE) U Benzodiazepines Scrn (NEGATIVE) U Oth Cocaine Metabols (NEGATIVE) U Cannabinoids Screen (NEGATIVE) Hep Bs Antigen (NEGATIVE) Hep Bs Antibody (NEGATIVE) Hepatitis C Antibody (NEGATIVE) Influenza Typ A,B (EIA) (NEGATIVE) Laboratory Results - last 24 hr 07/31/18 07/31/18 07/31/18 15:21 15:47 15:47 WBC 12.8 H RBC 2.89 L Hgb 9.2 L Hct 27.6 L MCV 95.4 MCH 31.7 H MCHC 33.3 RDW 14.3 Plt Count 278 MPV 8.2 Neut % (Auto) 89.4 H Lymph % (Auto) 4.9 L Hardin % (Auto) 5.4 Eos % (Auto) 0.1 Baso % (Auto) 0.2 Neut # (Auto) 11.5 H Lymph # (Auto) 0.6 L Hardin # (Auto) 0.7 Eos # (Auto) 0.0 Baso # (Auto) 0.0 Neutrophils % (Manual) 91 H Band Neutrophils % 3 H Lymphocytes % (Manual) 4 L Monocytes % (Manual) 2 Platelet Estimate Normal Large Platelets Present Polychromasia Hypochromasia (manual) Slight Anisocytosis (manual) Slight Microcytosis (manual) Slight Macrocytosis (manual) Slight PT 12.1 INR 1.1 APTT 28 Puncture Site pCO2 pO2 HCO3 ABG pH ABG Total CO2 ABG O2 Saturation ABG Base Excess ABG Hemoglobin ABG Carboxyhemoglobin POC ABG HHb (Measured) ABG Methemoglobin Yoan Test ABG Potassium VBG pH VBG pCO2 VBG HCO3 VBG Total CO2 VBG O2 Sat (Calc) VBG Base Excess VBG Potassium A-a O2 Difference Respiratory Index Hgb O2 Saturation Glucose Lactate Vent Mode Mechanical Rate FiO2 Tidal Volume PEEP Crit Value Called To Crit Value Called By Crit Value Read Back Blood Gas Notified Time Sodium Potassium Chloride Carbon Dioxide Anion Gap BUN Creatinine Est GFR ( Amer) Est GFR (Non-Af Amer) POC Glucose (mg/dL) 101 Random Glucose Calcium Phosphorus Magnesium Total Bilirubin AST ALT Alkaline Phosphatase Ammonia Total Creatine Kinase CK-MB (Mass) Troponin I Total Protein Albumin Globulin Albumin/Globulin Ratio Arterial Blood Potassium Venous Blood Potassium Urine Color Urine Clarity Urine pH Ur Specific Mcnabb Urine Protein Urine Glucose (UA) Urine Ketones Urine Blood Urine Nitrate Urine Bilirubin Urine Urobilinogen Ur Leukocyte Esterase Urine WBC (Auto) Urine RBC (Auto) Urine WBC Clumps (Auto) Ur Squamous Epith Cells Amorphous Sediment Urine Bacteria Salicylates Urine Opiates Screen Urine Methadone Screen Acetaminophen Ur Barbiturates Screen Ur Phencyclidine Scrn Ur Amphetamines Screen U Benzodiazepines Scrn U Oth Cocaine Metabols U Cannabinoids Screen Hep Bs Antigen Hep Bs Antibody Hepatitis C Antibody Influenza Typ A,B (EIA) 07/31/18 07/31/18 07/31/18 15:47 15:47 15:51 WBC RBC Hgb Hct MCV MCH MCHC RDW Plt Count MPV Neut % (Auto) Lymph % (Auto) Hardin % (Auto) Eos % (Auto) Baso % (Auto) Neut # (Auto) Lymph # (Auto) Hardin # (Auto) Eos # (Auto) Baso # (Auto) Neutrophils % (Manual) Band Neutrophils % Lymphocytes % (Manual) Monocytes % (Manual) Platelet Estimate Large Platelets Polychromasia Hypochromasia (manual) Anisocytosis (manual) Microcytosis (manual) Macrocytosis (manual) PT INR APTT Puncture Site pCO2 pO2 56 H HCO3 ABG pH ABG Total CO2 ABG O2 Saturation ABG Base Excess ABG Hemoglobin ABG Carboxyhemoglobin POC ABG HHb (Measured) ABG Methemoglobin Yoan Test ABG Potassium VBG pH 6.95 L* VBG pCO2 33 L VBG HCO3 5.3 VBG Total CO2 8.3 L VBG O2 Sat (Calc) 87.3 H VBG Base Excess -24.1 L VBG Potassium 3.7 A-a O2 Difference Respiratory Index Hgb O2 Saturation Glucose 102 Lactate 1.0 Vent Mode Mechanical Rate FiO2 Tidal Volume PEEP Crit Value Called To Dane Crit Value Called By Mitchel eason Crit Value Read Back Y Blood Gas Notified Time 1600 Sodium 142 138.0 Potassium 3.6 Chloride 109 H 110.0 H Carbon Dioxide 6 L* Anion Gap 30 H BUN 98 H Creatinine 9.6 H* Est GFR ( Amer) 5 Est GFR (Non-Af Amer) 4 POC Glucose (mg/dL) Random Glucose 105 Calcium 7.6 L Phosphorus 11.1 H Magnesium 2.3 Total Bilirubin 0.4 AST 51 H ALT 31 Alkaline Phosphatase 66 Ammonia 70 H Total Creatine Kinase 1109 H CK-MB (Mass) 27.1 H Troponin I 0.0230 Total Protein 6.4 Albumin 3.1 L Globulin 3.3 Albumin/Globulin Ratio 0.9 L Arterial Blood Potassium Venous Blood Potassium 3.7 Urine Color Urine Clarity Urine pH Ur Specific Mcnabb Urine Protein Urine Glucose (UA) Urine Ketones Urine Blood Urine Nitrate Urine Bilirubin Urine Urobilinogen Ur Leukocyte Esterase Urine WBC (Auto) Urine RBC (Auto) Urine WBC Clumps (Auto) Ur Squamous Epith Cells Amorphous Sediment Urine Bacteria Salicylates Urine Opiates Screen Urine Methadone Screen Acetaminophen Ur Barbiturates Screen Ur Phencyclidine Scrn Ur Amphetamines Screen U Benzodiazepines Scrn U Oth Cocaine Metabols U Cannabinoids Screen Hep Bs Antigen Hep Bs Antibody Hepatitis C Antibody Influenza Typ A,B (EIA) 07/31/18 07/31/18 07/31/18 15:57 16:00 16:00 WBC RBC Hgb Hct MCV MCH MCHC RDW Plt Count MPV Neut % (Auto) Lymph % (Auto) Hardin % (Auto) Eos % (Auto) Baso % (Auto) Neut # (Auto) Lymph # (Auto) Hardin # (Auto) Eos # (Auto) Baso # (Auto) Neutrophils % (Manual) Band Neutrophils % Lymphocytes % (Manual) Monocytes % (Manual) Platelet Estimate Large Platelets Polychromasia Hypochromasia (manual) Anisocytosis (manual) Microcytosis (manual) Macrocytosis (manual) PT INR APTT Puncture Site pCO2 pO2 HCO3 ABG pH ABG Total CO2 ABG O2 Saturation ABG Base Excess ABG Hemoglobin ABG Carboxyhemoglobin POC ABG HHb (Measured) ABG Methemoglobin Yoan Test ABG Potassium VBG pH VBG pCO2 VBG HCO3 VBG Total CO2 VBG O2 Sat (Calc) VBG Base Excess VBG Potassium A-a O2 Difference Respiratory Index Hgb O2 Saturation Glucose Lactate Vent Mode Mechanical Rate FiO2 Tidal Volume PEEP Crit Value Called To Crit Value Called By Crit Value Read Back Blood Gas Notified Time Sodium Potassium Chloride Carbon Dioxide Anion Gap BUN Creatinine Est GFR ( Amer) Est GFR (Non-Af Amer) POC Glucose (mg/dL) Random Glucose Calcium Phosphorus Magnesium Total Bilirubin AST ALT Alkaline Phosphatase Ammonia Total Creatine Kinase CK-MB (Mass) Troponin I Total Protein Albumin Globulin Albumin/Globulin Ratio Arterial Blood Potassium Venous Blood Potassium Urine Color Yellow Urine Clarity Turbid Urine pH 6.0 Ur Specific Mcnabb 1.017 Urine Protein 2+ H Urine Glucose (UA) Normal Urine Ketones Negative Urine Blood 1+ H Urine Nitrate Negative Urine Bilirubin 1+ H Urine Urobilinogen Normal Ur Leukocyte Esterase 2+ H Urine WBC (Auto) 2284 H Urine RBC (Auto) 50 H Urine WBC Clumps (Auto) Many H Ur Squamous Epith Cells 36 H Amorphous Sediment Few H Urine Bacteria Many H Salicylates < 1.0 Urine Opiates Screen Positive H Urine Methadone Screen Negative Acetaminophen < 10.0 L Ur Barbiturates Screen Negative Ur Phencyclidine Scrn Negative Ur Amphetamines Screen Negative U Benzodiazepines Scrn Positive U Oth Cocaine Metabols Negative U Cannabinoids Screen Negative Hep Bs Antigen Hep Bs Antibody Hepatitis C Antibody Influenza Typ A,B (EIA) 07/31/18 07/31/18 07/31/18 16:16 20:26 20:57 WBC RBC Hgb Hct MCV MCH MCHC RDW Plt Count MPV Neut % (Auto) Lymph % (Auto) Hardin % (Auto) Eos % (Auto) Baso % (Auto) Neut # (Auto) Lymph # (Auto) Hardin # (Auto) Eos # (Auto) Baso # (Auto) Neutrophils % (Manual) Band Neutrophils % Lymphocytes % (Manual) Monocytes % (Manual) Platelet Estimate Large Platelets Polychromasia Hypochromasia (manual) Anisocytosis (manual) Microcytosis (manual) Macrocytosis (manual) PT INR APTT Puncture Site Lr pCO2 27 L pO2 336 H HCO3 5.9 L* ABG pH 6.97 L* ABG Total CO2 7.0 L ABG O2 Saturation 100.0 H ABG Base Excess -24.5 L ABG Hemoglobin ABG Carboxyhemoglobin POC ABG HHb (Measured) ABG Methemoglobin Yoan Test Unable ABG Potassium 2.9 L VBG pH VBG pCO2 VBG HCO3 VBG Total CO2 VBG O2 Sat (Calc) VBG Base Excess VBG Potassium A-a O2 Difference 343.0 Respiratory Index 1.0 Hgb O2 Saturation Glucose 106 H Lactate 0.7 Vent Mode Prvc Mechanical Rate 14 FiO2 100.0 Tidal Volume 450 PEEP 5 Crit Value Called To Dr triplett Crit Value Called By Mitchel eason Crit Value Read Back Y Blood Gas Notified Time 1619 Sodium 137.0 Potassium Chloride 115.0 H Carbon Dioxide Anion Gap BUN Creatinine Est GFR ( Amer) Est GFR (Non-Af Amer) POC Glucose (mg/dL) Random Glucose Calcium Phosphorus Magnesium Total Bilirubin AST ALT Alkaline Phosphatase Ammonia Total Creatine Kinase CK-MB (Mass) Troponin I Total Protein Albumin Globulin Albumin/Globulin Ratio Arterial Blood Potassium 2.9 L Venous Blood Potassium Urine Color Urine Clarity Urine pH Ur Specific Mcnabb Urine Protein Urine Glucose (UA) Urine Ketones Urine Blood Urine Nitrate Urine Bilirubin Urine Urobilinogen Ur Leukocyte Esterase Urine WBC (Auto) Urine RBC (Auto) Urine WBC Clumps (Auto) Ur Squamous Epith Cells Amorphous Sediment Urine Bacteria Salicylates Urine Opiates Screen Urine Methadone Screen Acetaminophen Ur Barbiturates Screen Ur Phencyclidine Scrn Ur Amphetamines Screen U Benzodiazepines Scrn U Oth Cocaine Metabols U Cannabinoids Screen Hep Bs Antigen Negative Hep Bs Antibody Hepatitis C Antibody Negative Influenza Typ A,B (EIA) Negative for flu a/b 07/31/18 08/01/18 08/01/18 20:57 05:39 05:39 WBC 11.0 H RBC 3.11 L Hgb 9.7 L Hct 29.1 L MCV 93.8 MCH 31.1 H MCHC 33.2 RDW 14.3 Plt Count 232 MPV 8.7 Neut % (Auto) 94.6 H Lymph % (Auto) 2.1 L Hardin % (Auto) 2.5 Eos % (Auto) 0.1 Baso % (Auto) 0.7 Neut # (Auto) 10.4 H Lymph # (Auto) 0.2 L Hardin # (Auto) 0.3 Eos # (Auto) 0.0 Baso # (Auto) 0.1 Neutrophils % (Manual) 79 H Band Neutrophils % 16 H* Lymphocytes % (Manual) 2 L Monocytes % (Manual) 3 Platelet Estimate Normal Large Platelets Polychromasia Slight Hypochromasia (manual) Slight Anisocytosis (manual) Microcytosis (manual) Macrocytosis (manual) PT INR APTT Puncture Site pCO2 pO2 HCO3 ABG pH ABG Total CO2 ABG O2 Saturation ABG Base Excess ABG Hemoglobin ABG Carboxyhemoglobin POC ABG HHb (Measured) ABG Methemoglobin Yoan Test ABG Potassium VBG pH VBG pCO2 VBG HCO3 VBG Total CO2 VBG O2 Sat (Calc) VBG Base Excess VBG Potassium A-a O2 Difference Respiratory Index Hgb O2 Saturation Glucose Lactate Vent Mode Mechanical Rate FiO2 Tidal Volume PEEP Crit Value Called To Crit Value Called By Crit Value Read Back Blood Gas Notified Time Sodium 146 Potassium 3.0 L Chloride 108 H Carbon Dioxide 16 L Anion Gap 25 H BUN 55 H Creatinine 5.3 H Est GFR ( Amer) 10 Est GFR (Non-Af Amer) 8 POC Glucose (mg/dL) Random Glucose 113 H Calcium 7.3 L Phosphorus 5.6 H Magnesium 1.9 Total Bilirubin 0.4 AST 55 H ALT 33 Alkaline Phosphatase 54 Ammonia Total Creatine Kinase CK-MB (Mass) Troponin I Total Protein 5.7 L Albumin 2.7 L Globulin 3.0 Albumin/Globulin Ratio 0.9 L Arterial Blood Potassium Venous Blood Potassium Urine Color Urine Clarity Urine pH Ur Specific Mcnabb Urine Protein Urine Glucose (UA) Urine Ketones Urine Blood Urine Nitrate Urine Bilirubin Urine Urobilinogen Ur Leukocyte Esterase Urine WBC (Auto) Urine RBC (Auto) Urine WBC Clumps (Auto) Ur Squamous Epith Cells Amorphous Sediment Urine Bacteria Salicylates Urine Opiates Screen Urine Methadone Screen Acetaminophen Ur Barbiturates Screen Ur Phencyclidine Scrn Ur Amphetamines Screen U Benzodiazepines Scrn U Oth Cocaine Metabols U Cannabinoids Screen Hep Bs Antigen Hep Bs Antibody Negative Hepatitis C Antibody Influenza Typ A,B (EIA) 08/01/18 08/01/18 08/01/18 05:40 08:33 08:33 WBC RBC Hgb Hct MCV MCH MCHC RDW Plt Count MPV Neut % (Auto) Lymph % (Auto) Hardin % (Auto) Eos % (Auto) Baso % (Auto) Neut # (Auto) Lymph # (Auto) Hardin # (Auto) Eos # (Auto) Baso # (Auto) Neutrophils % (Manual) Band Neutrophils % Lymphocytes % (Manual) Monocytes % (Manual) Platelet Estimate Large Platelets Polychromasia Hypochromasia (manual) Anisocytosis (manual) Microcytosis (manual) Macrocytosis (manual) PT INR APTT Puncture Site Lradal pCO2 29 L pO2 140 H HCO3 16.5 L ABG pH 7.30 L ABG Total CO2 15.2 L ABG O2 Saturation 98.9 H ABG Base Excess -10.8 L ABG Hemoglobin 12.7 ABG Carboxyhemoglobin 0.8 POC ABG HHb (Measured) 1.1 ABG Methemoglobin 1.2 Yoan Test Pos ABG Potassium VBG pH VBG pCO2 VBG HCO3 VBG Total CO2 VBG O2 Sat (Calc) VBG Base Excess VBG Potassium A-a O2 Difference 252.0 Respiratory Index 1.8 Hgb O2 Saturation 96.8 Glucose Lactate Vent Mode Prvc Mechanical Rate 20 FiO2 60.0 Tidal Volume 450 PEEP Crit Value Called To Crit Value Called By Crit Value Read Back Blood Gas Notified Time Sodium Potassium Chloride Carbon Dioxide Anion Gap BUN Creatinine Est GFR ( Amer) Est GFR (Non-Af Amer) POC Glucose (mg/dL) Random Glucose Calcium Phosphorus Magnesium Total Bilirubin AST ALT Alkaline Phosphatase Ammonia 19 D Total Creatine Kinase CK-MB (Mass) 12.9 H Troponin I Total Protein Albumin Globulin Albumin/Globulin Ratio Arterial Blood Potassium Venous Blood Potassium Urine Color Urine Clarity Urine pH Ur Specific Mcnabb Urine Protein Urine Glucose (UA) Urine Ketones Urine Blood Urine Nitrate Urine Bilirubin Urine Urobilinogen Ur Leukocyte Esterase Urine WBC (Auto) Urine RBC (Auto) Urine WBC Clumps (Auto) Ur Squamous Epith Cells Amorphous Sediment Urine Bacteria Salicylates Urine Opiates Screen Urine Methadone Screen Acetaminophen Ur Barbiturates Screen Ur Phencyclidine Scrn Ur Amphetamines Screen U Benzodiazepines Scrn U Oth Cocaine Metabols U Cannabinoids Screen Hep Bs Antigen Hep Bs Antibody Hepatitis C Antibody Influenza Typ A,B (EIA) EKG/Cardiology Studies: Cardiology / EKG Studies 07/31/18 15:24 EKG [ELECTROCARDIOGRAM] Stat Comment: Mode Of Transportation: BED Reason For Exam: cp Fingerstick Blood Sugar Results: 101 Review of Systems - Review of Systems Systems not reviewed;Unavailable: Acuity of Condition Assessment/Plan - Assessment and Plan (Free Text) Assessment: 62yo F. PMHx HTN, hyperlipidemia, and depression. p/w acute respiratory failure, in acute renal failure in severe metabolic acidosis. s/p shiley cath with Dr Bauer Neuro: -comatose -monitor mental status Pulm: -acute respiratory failure on vent. CV: -hemodynamically stable Hem: -no acute issues Renal: -HAGMA with ROBIN, requiring emergent dialysis. -s/p shiley cath with Dr Bauer Endo: -no acute issues GI: -NPO, Nephro ID: -empiric therapy with Zosyn. source of sepsis, if there is one, is uncertain. groin wound pos for Gram pos cocci aerobic -possible Cimex mite infection (bed bugs) -f/u cultures DVT proph - heparin sq GI proph - protonix white for strict I/O's during acute illness Code status - full code <Klever Feng - Last Filed: 08/02/18 08:27> CCU Objective - Vital Signs / Intake & Output Vital Signs (Last 4 hours): Vital Signs Pulse Resp BP Pulse Ox 08/02/18 06:13 117 H 18 151/97 H 100 08/02/18 05:00 114 H 13 151/82 H 100 Intake and Output (Last 8hrs): Intake & Output 08/01/18 08/02/18 08/02/18 22:59 06:59 14:59 Intake Total 880 710 Output Total 100 100 Balance 780 610 Weight 162 lb Intake: Intake, IV Amount 400 450 Right Antecubital 400 450 Tube Feeding 80 260 Other 400 Output: Urine 100 100 Urethral (White) 100 100 - Medications Active Medications: Active Medications Generic Name Dose Route Start Last Admin Trade Name Freq PRN Reason Stop Dose Admin Albuterol/Ipratropium 3 ml 08/01/18 02:00 08/02/18 07:40 Duoneb 3 Mg/0.5 Mg (3 Ml) Ud INH 3 ml RQ6 JOSE Administration Bacitracin 1 ea 07/31/18 20:00 08/01/18 17:30 Bacitracin TOP 10/14/18 20:01 1 ea BID JOSE Administration Calcium Acetate 2,001 mg 08/01/18 08:00 08/02/18 08:20 Phoslo PO 2,001 mg TIDCC JOSE Administration Heparin Sodium (Porcine) 5,000 units 07/31/18 22:00 08/02/18 05:41 Heparin SC 5,000 units Q8 JOSE Administration Piperacillin Sod/Tazobactam Sod 3.375 gm in 50 mls @ 100 mls/hr 07/31/18 18:30 08/02/18 05:41 Zosyn 3.375 Gm Iv Premix IVPB 100 mls/hr Q6H JOSE Administration Protocol Sodium Chloride 1,000 mls @ 50 mls/hr 08/01/18 10:30 08/02/18 05:37 Sodium Chloride 0.9% IV 50 mls/hr .Q20H JOSE Administration Lorazepam 0.5 mg 08/02/18 08:06 08/02/18 08:18 Ativan IVP 0.5 mg Q6 PRN Administration Agitation Methylprednisolone 40 mg 08/01/18 10:00 08/01/18 21:58 Solu-Medrol IVP 40 mg Q12H JOSE Administration Pantoprazole Sodium 40 mg 08/01/18 06:00 08/02/18 05:41 Protonix Susp PO 40 mg 0600 JOSE Administration - Patient Studies Lab Studies: Microbiology Studies 07/31/18 20:26 MRSA Culture (Admit) - Final Naris MRSA NOT DETECTED 07/31/18 15:20 S.aureus & Coag-Neg Staph PNA FISH - Final Blood Blood Culture - Preliminary Gram Positive Cocci Gram Stain - Final 07/31/18 16:00 Blood Culture - Preliminary Blood NO GROWTH AFTER 24 HOURS 07/31/18 20:57 Gram Stain - Final Abscess - Groin Wound Culture - Preliminary Gram Positive Cocci 07/31/18 20:26 Gram Stain - Final Groin Wound Culture - Preliminary Gram Positive Cocci 07/31/18 16:00 Urine Culture - Preliminary Urine,Catheterized Gram Negative Faisal Lab Studies 08/02/18 08/02/18 08/02/18 Range/Units 05:49 05:49 05:49 WBC (4.8-10.8) K/uL RBC (3.80-5.20) Mil/uL Hgb (11.0-16.0) g/dL Hct (34.0-47.0) % MCV (81.0-99.0) fL MCH (27.0-31.0) pg MCHC (33.0-37.0) g/dL RDW (11.5-14.5) % Plt Count (130-400) K/uL MPV (7.2-11.7) fL Neut % (Auto) (50.0-75.0) % Lymph % (Auto) (20.0-40.0) % Hardin % (Auto) (0.0-10.0) % Eos % (Auto) (0.0-4.0) % Baso % (Auto) (0.0-2.0) % Neut # (Auto) (1.8-7.0) K/uL Lymph # (Auto) (1.0-4.3) K/uL Hardin # (Auto) (0.0-0.8) K/uL Eos # (Auto) (0.0-0.7) K/uL Baso # (Auto) (0.0-0.2) K/uL Puncture Site pCO2 (35-45) mm/Hg pO2 (80-100) mm/Hg HCO3 (21-28) mmol/L ABG pH (7.35-7.45) ABG Total CO2 (22-28) mmol/L ABG O2 Saturation (95-98) % ABG Base Excess (-2.0-3.0) mmol/L ABG Hemoglobin (11.7-17.4) g/dL ABG Carboxyhemoglobin (0.5-1.5) % POC ABG HHb (Measured) (0.0-5.0) % ABG Methemoglobin (0.0-3.0) % Yoan Test A-a O2 Difference mm/Hg Respiratory Index Hgb O2 Saturation (95.0-98.0) % Vent Mode Mechanical Rate FiO2 % Tidal Volume PEEP Sodium 147 (132-148) mmol/L Potassium 3.3 L (3.6-5.2) mmol/L Chloride 110 H (98-107) mmol/L Carbon Dioxide 17 L (22-30) mmol/L Anion Gap 23 H (10-20) BUN 64 H (7-17) mg/dL Creatinine 6.1 H (0.7-1.2) mg/dL Est GFR ( Amer) 8 Est GFR (Non-Af Amer) 7 Random Glucose 178 H (65-105) mg/dL Hemoglobin A1c (4.2-6.5) % Calcium 8.1 L (8.6-10.4) mg/dl Phosphorus (2.5-4.5) mg/dL Magnesium (1.6-2.3) mg/dL Iron 14 L (37-170) ug/dL TIBC 161 L (250-450) ug/dL % Saturation 9 L (20-55) Ferritin ng/mL Total Bilirubin 0.5 (0.2-1.3) mg/dL AST 38 H D (14-36) U/L ALT 29 (9-52) U/L Alkaline Phosphatase 46 (38-126) U/L Ammonia (9-33) umol/L CK-MB (Mass) (0.0-3.38) ng/mL Total Protein 5.6 L (6.3-8.3) g/dL Albumin 2.8 L (3.5-5.0) g/dL Globulin 2.8 (2.2-3.9) gm/dL Albumin/Globulin Ratio 1.0 (1.0-2.1) Vitamin B12 > 1000 H (239-931) pg/mL 25-OH Vitamin D Total (30.0-100.0) NG/ML Folate 4.7 ng/mL Ur Random Creatinine mg/dL U Random Total Protein Complement C3 (88.0-165.0) mg/dL Complement C4 (14.0-44.0) mg/dL Hep Bs Antibody (NEGATIVE) Hepatitis C Antibody (NEGATIVE) HIV 1&2 Antibody Screen (NEGATIVE) 08/02/18 08/02/18 08/02/18 Range/Units 05:49 05:49 05:48 WBC (4.8-10.8) K/uL RBC (3.80-5.20) Mil/uL Hgb (11.0-16.0) g/dL Hct (34.0-47.0) % MCV (81.0-99.0) fL MCH (27.0-31.0) pg MCHC (33.0-37.0) g/dL RDW (11.5-14.5) % Plt Count (130-400) K/uL MPV (7.2-11.7) fL Neut % (Auto) (50.0-75.0) % Lymph % (Auto) (20.0-40.0) % Hardin % (Auto) (0.0-10.0) % Eos % (Auto) (0.0-4.0) % Baso % (Auto) (0.0-2.0) % Neut # (Auto) (1.8-7.0) K/uL Lymph # (Auto) (1.0-4.3) K/uL Hardin # (Auto) (0.0-0.8) K/uL Eos # (Auto) (0.0-0.7) K/uL Baso # (Auto) (0.0-0.2) K/uL Puncture Site pCO2 (35-45) mm/Hg pO2 (80-100) mm/Hg HCO3 (21-28) mmol/L ABG pH (7.35-7.45) ABG Total CO2 (22-28) mmol/L ABG O2 Saturation (95-98) % ABG Base Excess (-2.0-3.0) mmol/L ABG Hemoglobin (11.7-17.4) g/dL ABG Carboxyhemoglobin (0.5-1.5) % POC ABG HHb (Measured) (0.0-5.0) % ABG Methemoglobin (0.0-3.0) % Yoan Test A-a O2 Difference mm/Hg Respiratory Index Hgb O2 Saturation (95.0-98.0) % Vent Mode Mechanical Rate FiO2 % Tidal Volume PEEP Sodium (132-148) mmol/L Potassium (3.6-5.2) mmol/L Chloride (98-107) mmol/L Carbon Dioxide (22-30) mmol/L Anion Gap (10-20) BUN (7-17) mg/dL Creatinine (0.7-1.2) mg/dL Est GFR ( Amer) Est GFR (Non-Af Amer) Random Glucose (65-105) mg/dL Hemoglobin A1c 5.4 (4.2-6.5) % Calcium (8.6-10.4) mg/dl Phosphorus 3.3 (2.5-4.5) mg/dL Magnesium 1.9 (1.6-2.3) mg/dL Iron (37-170) ug/dL TIBC (250-450) ug/dL % Saturation (20-55) Ferritin ng/mL Total Bilirubin (0.2-1.3) mg/dL AST (14-36) U/L ALT (9-52) U/L Alkaline Phosphatase (38-126) U/L Ammonia (9-33) umol/L CK-MB (Mass) (0.0-3.38) ng/mL Total Protein (6.3-8.3) g/dL Albumin (3.5-5.0) g/dL Globulin (2.2-3.9) gm/dL Albumin/Globulin Ratio (1.0-2.1) Vitamin B12 (239-931) pg/mL 25-OH Vitamin D Total < 12.8 L (30.0-100.0) NG/ML Folate ng/mL Ur Random Creatinine mg/dL U Random Total Protein Complement C3 (88.0-165.0) mg/dL Complement C4 (14.0-44.0) mg/dL Hep Bs Antibody (NEGATIVE) Hepatitis C Antibody (NEGATIVE) HIV 1&2 Antibody Screen (NEGATIVE) 08/02/18 08/02/18 08/01/18 Range/Units 05:48 05:20 15:29 WBC 15.0 H (4.8-10.8) K/uL RBC 2.29 L (3.80-5.20) Mil/uL Hgb 7.2 L D (11.0-16.0) g/dL Hct 21.2 L (34.0-47.0) % MCV 92.7 (81.0-99.0) fL MCH 31.7 H (27.0-31.0) pg MCHC 34.2 (33.0-37.0) g/dL RDW 14.5 (11.5-14.5) % Plt Count 203 (130-400) K/uL MPV 8.4 (7.2-11.7) fL Neut % (Auto) 95.0 H (50.0-75.0) % Lymph % (Auto) 2.8 L (20.0-40.0) % Hardin % (Auto) 2.1 (0.0-10.0) % Eos % (Auto) 0.0 (0.0-4.0) % Baso % (Auto) 0.1 (0.0-2.0) % Neut # (Auto) 14.3 H (1.8-7.0) K/uL Lymph # (Auto) 0.4 L (1.0-4.3) K/uL Hardin # (Auto) 0.3 (0.0-0.8) K/uL Eos # (Auto) 0.0 (0.0-0.7) K/uL Baso # (Auto) 0.0 (0.0-0.2) K/uL Puncture Site R rad pCO2 30 L (35-45) mm/Hg pO2 184 H (80-100) mm/Hg HCO3 20.2 L (21-28) mmol/L ABG pH 7.39 (7.35-7.45) ABG Total CO2 19.1 L (22-28) mmol/L ABG O2 Saturation 99.1 H (95-98) % ABG Base Excess -6.1 L (-2.0-3.0) mmol/L ABG Hemoglobin 7.4 L (11.7-17.4) g/dL ABG Carboxyhemoglobin 0.8 (0.5-1.5) % POC ABG HHb (Measured) 0.9 (0.0-5.0) % ABG Methemoglobin 0.9 (0.0-3.0) % Yoan Test Pos A-a O2 Difference 135.0 mm/Hg Respiratory Index 0.7 Hgb O2 Saturation 97.4 (95.0-98.0) % Vent Mode Prvc Mechanical Rate 20 FiO2 50.0 % Tidal Volume 450 PEEP 5 Sodium (132-148) mmol/L Potassium (3.6-5.2) mmol/L Chloride (98-107) mmol/L Carbon Dioxide (22-30) mmol/L Anion Gap (10-20) BUN (7-17) mg/dL Creatinine (0.7-1.2) mg/dL Est GFR ( Amer) Est GFR (Non-Af Amer) Random Glucose (65-105) mg/dL Hemoglobin A1c (4.2-6.5) % Calcium (8.6-10.4) mg/dl Phosphorus (2.5-4.5) mg/dL Magnesium (1.6-2.3) mg/dL Iron (37-170) ug/dL TIBC (250-450) ug/dL % Saturation (20-55) Ferritin ng/mL Total Bilirubin (0.2-1.3) mg/dL AST (14-36) U/L ALT (9-52) U/L Alkaline Phosphatase (38-126) U/L Ammonia (9-33) umol/L CK-MB (Mass) (0.0-3.38) ng/mL Total Protein (6.3-8.3) g/dL Albumin (3.5-5.0) g/dL Globulin (2.2-3.9) gm/dL Albumin/Globulin Ratio (1.0-2.1) Vitamin B12 (239-931) pg/mL 25-OH Vitamin D Total (30.0-100.0) NG/ML Folate ng/mL Ur Random Creatinine mg/dL U Random Total Protein Complement C3 (88.0-165.0) mg/dL Complement C4 22.4 (14.0-44.0) mg/dL Hep Bs Antibody (NEGATIVE) Hepatitis C Antibody (NEGATIVE) HIV 1&2 Antibody Screen (NEGATIVE) 08/01/18 08/01/18 08/01/18 Range/Units 15:28 15:28 15:22 WBC (4.8-10.8) K/uL RBC (3.80-5.20) Mil/uL Hgb (11.0-16.0) g/dL Hct (34.0-47.0) % MCV (81.0-99.0) fL MCH (27.0-31.0) pg MCHC (33.0-37.0) g/dL RDW (11.5-14.5) % Plt Count (130-400) K/uL MPV (7.2-11.7) fL Neut % (Auto) (50.0-75.0) % Lymph % (Auto) (20.0-40.0) % Hardin % (Auto) (0.0-10.0) % Eos % (Auto) (0.0-4.0) % Baso % (Auto) (0.0-2.0) % Neut # (Auto) (1.8-7.0) K/uL Lymph # (Auto) (1.0-4.3) K/uL Hardin # (Auto) (0.0-0.8) K/uL Eos # (Auto) (0.0-0.7) K/uL Baso # (Auto) (0.0-0.2) K/uL Puncture Site pCO2 (35-45) mm/Hg pO2 (80-100) mm/Hg HCO3 (21-28) mmol/L ABG pH (7.35-7.45) ABG Total CO2 (22-28) mmol/L ABG O2 Saturation (95-98) % ABG Base Excess (-2.0-3.0) mmol/L ABG Hemoglobin (11.7-17.4) g/dL ABG Carboxyhemoglobin (0.5-1.5) % POC ABG HHb (Measured) (0.0-5.0) % ABG Methemoglobin (0.0-3.0) % Yoan Test A-a O2 Difference mm/Hg Respiratory Index Hgb O2 Saturation (95.0-98.0) % Vent Mode Mechanical Rate FiO2 % Tidal Volume PEEP Sodium (132-148) mmol/L Potassium (3.6-5.2) mmol/L Chloride (98-107) mmol/L Carbon Dioxide (22-30) mmol/L Anion Gap (10-20) BUN (7-17) mg/dL Creatinine (0.7-1.2) mg/dL Est GFR ( Amer) Est GFR (Non-Af Amer) Random Glucose (65-105) mg/dL Hemoglobin A1c (4.2-6.5) % Calcium (8.6-10.4) mg/dl Phosphorus (2.5-4.5) mg/dL Magnesium (1.6-2.3) mg/dL Iron 12 L (37-170) ug/dL TIBC 164 L (250-450) ug/dL % Saturation 7 L (20-55) Ferritin ng/mL Total Bilirubin (0.2-1.3) mg/dL AST (14-36) U/L ALT (9-52) U/L Alkaline Phosphatase (38-126) U/L Ammonia (9-33) umol/L CK-MB (Mass) (0.0-3.38) ng/mL Total Protein (6.3-8.3) g/dL Albumin (3.5-5.0) g/dL Globulin (2.2-3.9) gm/dL Albumin/Globulin Ratio (1.0-2.1) Vitamin B12 (239-931) pg/mL 25-OH Vitamin D Total (30.0-100.0) NG/ML Folate ng/mL Ur Random Creatinine 196.2 mg/dL U Random Total Protein 84.0 H Cancelled Complement C3 (88.0-165.0) mg/dL Complement C4 (14.0-44.0) mg/dL Hep Bs Antibody (NEGATIVE) Hepatitis C Antibody (NEGATIVE) HIV 1&2 Antibody Screen (NEGATIVE) 08/01/18 08/01/18 08/01/18 Range/Units 15:22 15:22 15:22 WBC (4.8-10.8) K/uL RBC (3.80-5.20) Mil/uL Hgb (11.0-16.0) g/dL Hct (34.0-47.0) % MCV (81.0-99.0) fL MCH (27.0-31.0) pg MCHC (33.0-37.0) g/dL RDW (11.5-14.5) % Plt Count (130-400) K/uL MPV (7.2-11.7) fL Neut % (Auto) (50.0-75.0) % Lymph % (Auto) (20.0-40.0) % Hardin % (Auto) (0.0-10.0) % Eos % (Auto) (0.0-4.0) % Baso % (Auto) (0.0-2.0) % Neut # (Auto) (1.8-7.0) K/uL Lymph # (Auto) (1.0-4.3) K/uL Hardin # (Auto) (0.0-0.8) K/uL Eos # (Auto) (0.0-0.7) K/uL Baso # (Auto) (0.0-0.2) K/uL Puncture Site pCO2 (35-45) mm/Hg pO2 (80-100) mm/Hg HCO3 (21-28) mmol/L ABG pH (7.35-7.45) ABG Total CO2 (22-28) mmol/L ABG O2 Saturation (95-98) % ABG Base Excess (-2.0-3.0) mmol/L ABG Hemoglobin (11.7-17.4) g/dL ABG Carboxyhemoglobin (0.5-1.5) % POC ABG HHb (Measured) (0.0-5.0) % ABG Methemoglobin (0.0-3.0) % Yoan Test A-a O2 Difference mm/Hg Respiratory Index Hgb O2 Saturation (95.0-98.0) % Vent Mode Mechanical Rate FiO2 % Tidal Volume PEEP Sodium (132-148) mmol/L Potassium (3.6-5.2) mmol/L Chloride (98-107) mmol/L Carbon Dioxide (22-30) mmol/L Anion Gap (10-20) BUN (7-17) mg/dL Creatinine (0.7-1.2) mg/dL Est GFR ( Amer) Est GFR (Non-Af Amer) Random Glucose (65-105) mg/dL Hemoglobin A1c (4.2-6.5) % Calcium (8.6-10.4) mg/dl Phosphorus (2.5-4.5) mg/dL Magnesium (1.6-2.3) mg/dL Iron (37-170) ug/dL TIBC (250-450) ug/dL % Saturation (20-55) Ferritin 221.0 ng/mL Total Bilirubin (0.2-1.3) mg/dL AST (14-36) U/L ALT (9-52) U/L Alkaline Phosphatase (38-126) U/L Ammonia (9-33) umol/L CK-MB (Mass) (0.0-3.38) ng/mL Total Protein (6.3-8.3) g/dL Albumin (3.5-5.0) g/dL Globulin (2.2-3.9) gm/dL Albumin/Globulin Ratio (1.0-2.1) Vitamin B12 > 1000 H (239-931) pg/mL 25-OH Vitamin D Total (30.0-100.0) NG/ML Folate 6.0 ng/mL Ur Random Creatinine mg/dL U Random Total Protein Complement C3 69.0 L (88.0-165.0) mg/dL Complement C4 (14.0-44.0) mg/dL Hep Bs Antibody (NEGATIVE) Hepatitis C Antibody (NEGATIVE) HIV 1&2 Antibody Screen Negative (NEGATIVE) 08/01/18 08/01/18 07/31/18 Range/Units 08:33 08:33 20:57 WBC (4.8-10.8) K/uL RBC (3.80-5.20) Mil/uL Hgb (11.0-16.0) g/dL Hct (34.0-47.0) % MCV (81.0-99.0) fL MCH (27.0-31.0) pg MCHC (33.0-37.0) g/dL RDW (11.5-14.5) % Plt Count (130-400) K/uL MPV (7.2-11.7) fL Neut % (Auto) (50.0-75.0) % Lymph % (Auto) (20.0-40.0) % Hardin % (Auto) (0.0-10.0) % Eos % (Auto) (0.0-4.0) % Baso % (Auto) (0.0-2.0) % Neut # (Auto) (1.8-7.0) K/uL Lymph # (Auto) (1.0-4.3) K/uL Hardin # (Auto) (0.0-0.8) K/uL Eos # (Auto) (0.0-0.7) K/uL Baso # (Auto) (0.0-0.2) K/uL Puncture Site pCO2 (35-45) mm/Hg pO2 (80-100) mm/Hg HCO3 (21-28) mmol/L ABG pH (7.35-7.45) ABG Total CO2 (22-28) mmol/L ABG O2 Saturation (95-98) % ABG Base Excess (-2.0-3.0) mmol/L ABG Hemoglobin (11.7-17.4) g/dL ABG Carboxyhemoglobin (0.5-1.5) % POC ABG HHb (Measured) (0.0-5.0) % ABG Methemoglobin (0.0-3.0) % Yoan Test A-a O2 Difference mm/Hg Respiratory Index Hgb O2 Saturation (95.0-98.0) % Vent Mode Mechanical Rate FiO2 % Tidal Volume PEEP Sodium (132-148) mmol/L Potassium (3.6-5.2) mmol/L Chloride (98-107) mmol/L Carbon Dioxide (22-30) mmol/L Anion Gap (10-20) BUN (7-17) mg/dL Creatinine (0.7-1.2) mg/dL Est GFR ( Amer) Est GFR (Non-Af Amer) Random Glucose (65-105) mg/dL Hemoglobin A1c (4.2-6.5) % Calcium (8.6-10.4) mg/dl Phosphorus (2.5-4.5) mg/dL Magnesium (1.6-2.3) mg/dL Iron (37-170) ug/dL TIBC (250-450) ug/dL % Saturation (20-55) Ferritin ng/mL Total Bilirubin (0.2-1.3) mg/dL AST (14-36) U/L ALT (9-52) U/L Alkaline Phosphatase (38-126) U/L Ammonia 19 D (9-33) umol/L CK-MB (Mass) 12.9 H (0.0-3.38) ng/mL Total Protein (6.3-8.3) g/dL Albumin (3.5-5.0) g/dL Globulin (2.2-3.9) gm/dL Albumin/Globulin Ratio (1.0-2.1) Vitamin B12 (239-931) pg/mL 25-OH Vitamin D Total (30.0-100.0) NG/ML Folate ng/mL Ur Random Creatinine mg/dL U Random Total Protein Complement C3 (88.0-165.0) mg/dL Complement C4 (14.0-44.0) mg/dL Hep Bs Antibody Negative (NEGATIVE) Hepatitis C Antibody (NEGATIVE) HIV 1&2 Antibody Screen (NEGATIVE) 07/31/18 Range/Units 20:57 WBC (4.8-10.8) K/uL RBC (3.80-5.20) Mil/uL Hgb (11.0-16.0) g/dL Hct (34.0-47.0) % MCV (81.0-99.0) fL MCH (27.0-31.0) pg MCHC (33.0-37.0) g/dL RDW (11.5-14.5) % Plt Count (130-400) K/uL MPV (7.2-11.7) fL Neut % (Auto) (50.0-75.0) % Lymph % (Auto) (20.0-40.0) % Hardin % (Auto) (0.0-10.0) % Eos % (Auto) (0.0-4.0) % Baso % (Auto) (0.0-2.0) % Neut # (Auto) (1.8-7.0) K/uL Lymph # (Auto) (1.0-4.3) K/uL Hardin # (Auto) (0.0-0.8) K/uL Eos # (Auto) (0.0-0.7) K/uL Baso # (Auto) (0.0-0.2) K/uL Puncture Site pCO2 (35-45) mm/Hg pO2 (80-100) mm/Hg HCO3 (21-28) mmol/L ABG pH (7.35-7.45) ABG Total CO2 (22-28) mmol/L ABG O2 Saturation (95-98) % ABG Base Excess (-2.0-3.0) mmol/L ABG Hemoglobin (11.7-17.4) g/dL ABG Carboxyhemoglobin (0.5-1.5) % POC ABG HHb (Measured) (0.0-5.0) % ABG Methemoglobin (0.0-3.0) % Yoan Test A-a O2 Difference mm/Hg Respiratory Index Hgb O2 Saturation (95.0-98.0) % Vent Mode Mechanical Rate FiO2 % Tidal Volume PEEP Sodium (132-148) mmol/L Potassium (3.6-5.2) mmol/L Chloride (98-107) mmol/L Carbon Dioxide (22-30) mmol/L Anion Gap (10-20) BUN (7-17) mg/dL Creatinine (0.7-1.2) mg/dL Est GFR ( Amer) Est GFR (Non-Af Amer) Random Glucose (65-105) mg/dL Hemoglobin A1c (4.2-6.5) % Calcium (8.6-10.4) mg/dl Phosphorus (2.5-4.5) mg/dL Magnesium (1.6-2.3) mg/dL Iron (37-170) ug/dL TIBC (250-450) ug/dL % Saturation (20-55) Ferritin ng/mL Total Bilirubin (0.2-1.3) mg/dL AST (14-36) U/L ALT (9-52) U/L Alkaline Phosphatase (38-126) U/L Ammonia (9-33) umol/L CK-MB (Mass) (0.0-3.38) ng/mL Total Protein (6.3-8.3) g/dL Albumin (3.5-5.0) g/dL Globulin (2.2-3.9) gm/dL Albumin/Globulin Ratio (1.0-2.1) Vitamin B12 (239-931) pg/mL 25-OH Vitamin D Total (30.0-100.0) NG/ML Folate ng/mL Ur Random Creatinine mg/dL U Random Total Protein Complement C3 (88.0-165.0) mg/dL Complement C4 (14.0-44.0) mg/dL Hep Bs Antibody (NEGATIVE) Hepatitis C Antibody Negative (NEGATIVE) HIV 1&2 Antibody Screen (NEGATIVE) Laboratory Results - last 24 hr 07/31/18 07/31/18 08/01/18 20:57 20:57 08:33 WBC RBC Hgb Hct MCV MCH MCHC RDW Plt Count MPV Neut % (Auto) Lymph % (Auto) Hardin % (Auto) Eos % (Auto) Baso % (Auto) Neut # (Auto) Lymph # (Auto) Hardin # (Auto) Eos # (Auto) Baso # (Auto) Puncture Site pCO2 pO2 HCO3 ABG pH ABG Total CO2 ABG O2 Saturation ABG Base Excess ABG Hemoglobin ABG Carboxyhemoglobin POC ABG HHb (Measured) ABG Methemoglobin Yoan Test A-a O2 Difference Respiratory Index Hgb O2 Saturation Vent Mode Mechanical Rate FiO2 Tidal Volume PEEP Sodium Potassium Chloride Carbon Dioxide Anion Gap BUN Creatinine Est GFR ( Amer) Est GFR (Non-Af Amer) Random Glucose Hemoglobin A1c Calcium Phosphorus Magnesium Iron TIBC % Saturation Ferritin Total Bilirubin AST ALT Alkaline Phosphatase Ammonia CK-MB (Mass) 12.9 H Total Protein Albumin Globulin Albumin/Globulin Ratio Vitamin B12 25-OH Vitamin D Total Folate Ur Random Creatinine U Random Total Protein Complement C3 Complement C4 Hep Bs Antibody Negative Hepatitis C Antibody Negative HIV 1&2 Antibody Screen 08/01/18 08/01/18 08/01/18 08:33 15:22 15:22 WBC RBC Hgb Hct MCV MCH MCHC RDW Plt Count MPV Neut % (Auto) Lymph % (Auto) Hardin % (Auto) Eos % (Auto) Baso % (Auto) Neut # (Auto) Lymph # (Auto) Hardin # (Auto) Eos # (Auto) Baso # (Auto) Puncture Site pCO2 pO2 HCO3 ABG pH ABG Total CO2 ABG O2 Saturation ABG Base Excess ABG Hemoglobin ABG Carboxyhemoglobin POC ABG HHb (Measured) ABG Methemoglobin Yoan Test A-a O2 Difference Respiratory Index Hgb O2 Saturation Vent Mode Mechanical Rate FiO2 Tidal Volume PEEP Sodium Potassium Chloride Carbon Dioxide Anion Gap BUN Creatinine Est GFR ( Amer) Est GFR (Non-Af Amer) Random Glucose Hemoglobin A1c Calcium Phosphorus Magnesium Iron TIBC % Saturation Ferritin 221.0 Total Bilirubin AST ALT Alkaline Phosphatase Ammonia 19 D CK-MB (Mass) Total Protein Albumin Globulin Albumin/Globulin Ratio Vitamin B12 > 1000 H 25-OH Vitamin D Total Folate 6.0 Ur Random Creatinine U Random Total Protein Complement C3 69.0 L Complement C4 Hep Bs Antibody Hepatitis C Antibody HIV 1&2 Antibody Screen 08/01/18 08/01/18 08/01/18 15:22 15:22 15:28 WBC RBC Hgb Hct MCV MCH MCHC RDW Plt Count MPV Neut % (Auto) Lymph % (Auto) Hardin % (Auto) Eos % (Auto) Baso % (Auto) Neut # (Auto) Lymph # (Auto) Hardin # (Auto) Eos # (Auto) Baso # (Auto) Puncture Site pCO2 pO2 HCO3 ABG pH ABG Total CO2 ABG O2 Saturation ABG Base Excess ABG Hemoglobin ABG Carboxyhemoglobin POC ABG HHb (Measured) ABG Methemoglobin Yoan Test A-a O2 Difference Respiratory Index Hgb O2 Saturation Vent Mode Mechanical Rate FiO2 Tidal Volume PEEP Sodium Potassium Chloride Carbon Dioxide Anion Gap BUN Creatinine Est GFR ( Amer) Est GFR (Non-Af Amer) Random Glucose Hemoglobin A1c Calcium Phosphorus Magnesium Iron 12 L TIBC 164 L % Saturation 7 L Ferritin Total Bilirubin AST ALT Alkaline Phosphatase Ammonia CK-MB (Mass) Total Protein Albumin Globulin Albumin/Globulin Ratio Vitamin B12 25-OH Vitamin D Total Folate Ur Random Creatinine 196.2 U Random Total Protein Cancelled Complement C3 Complement C4 Hep Bs Antibody Hepatitis C Antibody HIV 1&2 Antibody Screen Negative 08/01/18 08/01/18 08/02/18 15:28 15:29 05:20 WBC RBC Hgb Hct MCV MCH MCHC RDW Plt Count MPV Neut % (Auto) Lymph % (Auto) Hardin % (Auto) Eos % (Auto) Baso % (Auto) Neut # (Auto) Lymph # (Auto) Hardin # (Auto) Eos # (Auto) Baso # (Auto) Puncture Site R rad pCO2 30 L pO2 184 H HCO3 20.2 L ABG pH 7.39 ABG Total CO2 19.1 L ABG O2 Saturation 99.1 H ABG Base Excess -6.1 L ABG Hemoglobin 7.4 L ABG Carboxyhemoglobin 0.8 POC ABG HHb (Measured) 0.9 ABG Methemoglobin 0.9 Yoan Test Pos A-a O2 Difference 135.0 Respiratory Index 0.7 Hgb O2 Saturation 97.4 Vent Mode Prvc Mechanical Rate 20 FiO2 50.0 Tidal Volume 450 PEEP 5 Sodium Potassium Chloride Carbon Dioxide Anion Gap BUN Creatinine Est GFR ( Amer) Est GFR (Non-Af Amer) Random Glucose Hemoglobin A1c Calcium Phosphorus Magnesium Iron TIBC % Saturation Ferritin Total Bilirubin AST ALT Alkaline Phosphatase Ammonia CK-MB (Mass) Total Protein Albumin Globulin Albumin/Globulin Ratio Vitamin B12 25-OH Vitamin D Total Folate Ur Random Creatinine U Random Total Protein 84.0 H Complement C3 Complement C4 22.4 Hep Bs Antibody Hepatitis C Antibody HIV 1&2 Antibody Screen 08/02/18 08/02/18 08/02/18 05:48 05:48 05:49 WBC 15.0 H RBC 2.29 L Hgb 7.2 L D Hct 21.2 L MCV 92.7 MCH 31.7 H MCHC 34.2 RDW 14.5 Plt Count 203 MPV 8.4 Neut % (Auto) 95.0 H Lymph % (Auto) 2.8 L Hardin % (Auto) 2.1 Eos % (Auto) 0.0 Baso % (Auto) 0.1 Neut # (Auto) 14.3 H Lymph # (Auto) 0.4 L Hardin # (Auto) 0.3 Eos # (Auto) 0.0 Baso # (Auto) 0.0 Puncture Site pCO2 pO2 HCO3 ABG pH ABG Total CO2 ABG O2 Saturation ABG Base Excess ABG Hemoglobin ABG Carboxyhemoglobin POC ABG HHb (Measured) ABG Methemoglobin Yoan Test A-a O2 Difference Respiratory Index Hgb O2 Saturation Vent Mode Mechanical Rate FiO2 Tidal Volume PEEP Sodium Potassium Chloride Carbon Dioxide Anion Gap BUN Creatinine Est GFR ( Amer) Est GFR (Non-Af Amer) Random Glucose Hemoglobin A1c 5.4 Calcium Phosphorus 3.3 Magnesium 1.9 Iron TIBC % Saturation Ferritin Total Bilirubin AST ALT Alkaline Phosphatase Ammonia CK-MB (Mass) Total Protein Albumin Globulin Albumin/Globulin Ratio Vitamin B12 25-OH Vitamin D Total Folate Ur Random Creatinine U Random Total Protein Complement C3 Complement C4 Hep Bs Antibody Hepatitis C Antibody HIV 1&2 Antibody Screen 08/02/18 08/02/18 08/02/18 05:49 05:49 05:49 WBC RBC Hgb Hct MCV MCH MCHC RDW Plt Count MPV Neut % (Auto) Lymph % (Auto) Hardin % (Auto) Eos % (Auto) Baso % (Auto) Neut # (Auto) Lymph # (Auto) Hardin # (Auto) Eos # (Auto) Baso # (Auto) Puncture Site pCO2 pO2 HCO3 ABG pH ABG Total CO2 ABG O2 Saturation ABG Base Excess ABG Hemoglobin ABG Carboxyhemoglobin POC ABG HHb (Measured) ABG Methemoglobin Yoan Test A-a O2 Difference Respiratory Index Hgb O2 Saturation Vent Mode Mechanical Rate FiO2 Tidal Volume PEEP Sodium 147 Potassium 3.3 L Chloride 110 H Carbon Dioxide 17 L Anion Gap 23 H BUN 64 H Creatinine 6.1 H Est GFR ( Amer) 8 Est GFR (Non-Af Amer) 7 Random Glucose 178 H Hemoglobin A1c Calcium 8.1 L Phosphorus Magnesium Iron 14 L TIBC 161 L % Saturation 9 L Ferritin Total Bilirubin 0.5 AST 38 H D ALT 29 Alkaline Phosphatase 46 Ammonia CK-MB (Mass) Total Protein 5.6 L Albumin 2.8 L Globulin 2.8 Albumin/Globulin Ratio 1.0 Vitamin B12 25-OH Vitamin D Total < 12.8 L Folate Ur Random Creatinine U Random Total Protein Complement C3 Complement C4 Hep Bs Antibody Hepatitis C Antibody HIV 1&2 Antibody Screen 08/02/18 05:49 WBC RBC Hgb Hct MCV MCH MCHC RDW Plt Count MPV Neut % (Auto) Lymph % (Auto) Hardin % (Auto) Eos % (Auto) Baso % (Auto) Neut # (Auto) Lymph # (Auto) Hardin # (Auto) Eos # (Auto) Baso # (Auto) Puncture Site pCO2 pO2 HCO3 ABG pH ABG Total CO2 ABG O2 Saturation ABG Base Excess ABG Hemoglobin ABG Carboxyhemoglobin POC ABG HHb (Measured) ABG Methemoglobin Yoan Test A-a O2 Difference Respiratory Index Hgb O2 Saturation Vent Mode Mechanical Rate FiO2 Tidal Volume PEEP Sodium Potassium Chloride Carbon Dioxide Anion Gap BUN Creatinine Est GFR ( Amer) Est GFR (Non-Af Amer) Random Glucose Hemoglobin A1c Calcium Phosphorus Magnesium Iron TIBC % Saturation Ferritin Total Bilirubin AST ALT Alkaline Phosphatase Ammonia CK-MB (Mass) Total Protein Albumin Globulin Albumin/Globulin Ratio Vitamin B12 > 1000 H 25-OH Vitamin D Total Folate 4.7 Ur Random Creatinine U Random Total Protein Complement C3 Complement C4 Hep Bs Antibody Hepatitis C Antibody HIV 1&2 Antibody Screen Attending/Attestation - Attestation I have personally seen and examined this patient.: Yes I have fully participated in the care of the patient.: Yes I have reviewed all pertinent clinical information: Yes Notes (Text): 08/02/18 08:26 patient overall prognosis guarded. I spoke to the patient's brother. Admitted as pneumonia, renal failure, respiratory failure. Will continue the supportive care. Antibiotic. Dialysis tomorrow
[2018-08-01 15:43] LABS: IRON 12 ug/dL (37-170)
[2018-08-01 15:52] LABS: % IRON SATURATION 7 (20-55); TOTAL IRON BINDING CAPACITY 164 ug/dL (250-450)
--- NOTE | 2018-08-01 17:17 | CARD ---
APPROVED REPORT Date of service: 08/01/2018 EXAM: Two-dimensional and M-mode echocardiogram with Doppler and color Doppler. Other Information Quality : AverageRhythm : NSR INDICATION R/O ENDOCARDITIS/HTN RISK FACTORS Hypertension 2D DIMENSIONS LVOT Diameter1.9 (1.8-2.4cm) M-Mode DIMENSIONS RVDd1.28 (2.1-3.2cm)Left Atrium (MM)3.33 (2.5-4.0cm) IVSd1.25 (0.7-1.1cm)Aortic Root3.40 (2.2-3.7cm) LVDd3.85 (4.0-5.6cm)Aortic Cusp Exc.1.77 (1.5-2.0cm) PWd0.83 (0.7-1.1cm)FS (%) 33 % LVDs2.57 (2.0-3.8cm)LVEF (%)63 (>50%) Aortic Valve AoV Peak Hmafwvdl277.6cm/sAoV QKM517.7cmAO Peak GR.120mmHg LVOT Peak Hjlsjkek151.6cm/Brian Mean GR.73mmHgAVA (VMAX)0.78cm2 Mitral Valve MV E Ktefhgvt94.2cm/sMV A Knqidhmq687.6cm/sE/A ratio0.6 TDI E/Lateral E'0.0E/Medial E'0.0 Tricuspid Valve TR Peak [id number]/sTR Peak Gr.[id number] LEFT VENTRICLE The left ventricle is normal size. There is mild concentric left ventricular hypertrophy. The left ventricular function is normal. The left ventricular ejection fraction is within the normal range. There is normal LV segmental wall motion. Transmitral Doppler flow pattern is Grade I-abnormal relaxation pattern. RIGHT VENTRICLE The right ventricle is normal size. There is normal right ventricular wall thickness. The right ventricular systolic function is normal. ATRIA The left atrium size is normal. The right atrium size is normal. AORTIC VALVE The aortic valve is not well visualized. No aortic regurgitation is present. Consider sever subvalvular aortic stenosis. MITRAL VALVE The mitral valve is moderately thickened. There is no mitral valve stenosis. Mitral regurgitation is mild. TRICUSPID VALVE The tricuspid valve is normal in structure. There is mild tricuspid regurgitation. There is mild pulmonary hypertension. PULMONIC VALVE The pulmonary valve is normal in structure. There is no pulmonic valvular regurgitation. GREAT VESSELS The aortic root is normal in size. The IVC is normal in size and collapses >50% with inspiration. PERICARDIAL EFFUSION There is a small loculated anterior pericardial effusion. <Conclusion> The left ventricle is normal size. There is mild concentric left ventricular hypertrophy. The left ventricular function is normal. The left ventricular ejection fraction is within the normal range. There is normal LV segmental wall motion. Transmitral Doppler flow pattern is Grade I-abnormal relaxation pattern. Consider sever subvalvular aortic stenosis. Mitral regurgitation is mild. There is mild tricuspid regurgitation. There is mild pulmonary hypertension.
--- NOTE | 2018-08-01 18:40 | RAD ---
Date of service: 08/01/2018 HISTORY: Possible bronchoscopy. COMPARISON: August 01, 2018 portable study 07:01. FINDINGS: LUNGS: Improved aeration of the left lung. Considerable consolidative change remain primarily in the left lower lobe. Atelectatic changes right lower lobe. PLEURA: Left pleural effusion indistinguishable from atelectasis/consolidation. CARDIOVASCULAR: Cardiomegaly. Incompletely visualized aortic arch partially obscured by consolidative changes in the left upper lobe OSSEOUS STRUCTURES: No significant abnormalities. VISUALIZED UPPER ABDOMEN: Normal. OTHER FINDINGS: Satisfactory position of support apparatus including endotracheal tube and nasogastric tube. IMPRESSION: Partial re-expansion of the left lung. Stable position of support apparatus.
--- NOTE | 2018-08-01 18:40 | CARD ---
APPROVED REPORT Date of service: 07/31/2018 EKG Measurement Heart [id number] <Conclusion> Sinus tachycardia Nonspecific ST abnormality Abnormal ECG
--- NOTE | 2018-08-02 01:45 | CP.PCM.HP ---
History of Present Illness - History of Present Illness History of Present Illness: 08/01/18 History Of Present Illness 62 y/o female, with PMHx of HTN, hyperlipidemia, and depression, is brought to ED by EMS for altered mental status. As per son, pt was drowsy all day yesterday, and had called EMS but pt refused to come to hospital. However, son states patient's condition worsened, and she was not answering any questions today. EMS was called again. Upon EMS arrival, pt found to be unresponsive, and hypersalivating. Pt was intubated on field, ET tube 7.0 at the lip. Limited history at this time due to clinical condition. Present on Admission - Present on Admission Any Indicators Present on Admission: Yes Review of Systems - Review of Systems Systems not reviewed;Unavailable: Respiratory Distress, Intubated - Constitutional Constitutional: Fatigue - EENT Eyes: absent: As Per HPI Ears: absent: As Per HPI Nose/Mouth/Throat: absent: As Per HPI - Breasts Breasts: As Per HPI - Cardiovascular Cardiovascular: As Per HPI - Respiratory Respiratory: Cough, Stridor - Gastrointestinal Gastrointestinal: As Per HPI - Genitourinary Genitourinary: As Per HPI - Musculoskeletal Musculoskeletal: As Per HPI - Neurological Neurological: Abnormal Movements - Psychiatric Psychiatric: As Per HPI - Endocrine Endocrine: As Per HPI - Hematologic/Lymphatic Hematologic: As Per HPI Past Patient History - Past Medical History & Family History Past Medical History?: Yes - Past Social History Smoking Status: Unknown If Ever Smoked - CARDIAC Hx Hypertension: Yes - MUSCULOSKELETAL/RHEUMATOLOGICAL Hx Falls: No - PSYCHIATRIC Hx Depression: Yes Hx Substance Use: (unknown) - ANESTHESIA Hx Anesthesia: No Hx Anesthesia Reactions: No Hx Malignant Hyperthermia: No Has any member of the family had a problem w/ anesthesia?: No Meds Allergies/Adverse Reactions: Allergies Allergy/AdvReac Type Severity Reaction Status Date / Time No Known Allergies Allergy Verified 07/31/18 15:33 Physical Exam - Constitutional Appears: Chronically Ill - Head Exam Head Exam: ATRAUMATIC - Eye Exam Eye Exam: EOMI - Neurological Exam Neurological exam: Normal Gait - Psychiatric Exam Psychiatric exam: Normal Affect - Skin Skin Exam: Dry, Intact, Normal Color, Warm Results - Vital Signs Recent Vital Signs: Last Vital Signs Temp 98.8 F 08/02/18 00:00 Pulse 110 H 08/02/18 00:00 Resp 12 08/02/18 00:00 BP 107/62 08/02/18 00:02 Pulse Ox 99 08/02/18 00:00 - Labs Result Diagrams: 08/01/18 05:39 08/01/18 05:39 Labs: Laboratory Results - last 24 hr 07/31/18 07/31/18 08/01/18 20:57 20:57 05:39 WBC 11.0 H RBC 3.11 L Hgb 9.7 L Hct 29.1 L MCV 93.8 MCH 31.1 H MCHC 33.2 RDW 14.3 Plt Count 232 MPV 8.7 Neut % (Auto) 94.6 H Lymph % (Auto) 2.1 L [place] % (Auto) 2.5 Eos % (Auto) 0.1 Baso % (Auto) 0.7 Neut # (Auto) 10.4 H Lymph # (Auto) 0.2 L [place] # (Auto) 0.3 Eos # (Auto) 0.0 Baso # (Auto) 0.1 Neutrophils % (Manual) 79 H Band Neutrophils % 16 H* Lymphocytes % (Manual) 2 L Monocytes % (Manual) 3 Platelet Estimate Normal Polychromasia Slight Hypochromasia (manual) Slight Puncture Site pCO2 pO2 HCO3 ABG pH ABG Total CO2 ABG O2 Saturation ABG Base Excess ABG Hemoglobin ABG Carboxyhemoglobin POC ABG HHb (Measured) ABG Methemoglobin Yoan Test A-a O2 Difference Respiratory Index Hgb O2 Saturation Vent Mode Mechanical Rate FiO2 Tidal Volume Sodium Potassium Chloride Carbon Dioxide Anion Gap BUN Creatinine Est GFR ( Amer) Est GFR (Non-Af Amer) Random Glucose Calcium Phosphorus Magnesium Iron TIBC % Saturation Ferritin Total Bilirubin AST ALT Alkaline Phosphatase Ammonia CK-MB (Mass) Total Protein Albumin Globulin Albumin/Globulin Ratio Vitamin B12 Folate Ur Random Creatinine U Random Total Protein Complement C3 Complement C4 Hep Bs Antigen Negative Hep Bs Antibody Negative Hepatitis C Antibody Negative HIV 1&2 Antibody Screen 08/01/18 08/01/18 08/01/18 05:39 05:40 08:33 WBC RBC Hgb Hct MCV MCH MCHC RDW Plt Count MPV Neut % (Auto) Lymph % (Auto) [place] % (Auto) Eos % (Auto) Baso % (Auto) Neut # (Auto) Lymph # (Auto) [place] # (Auto) Eos # (Auto) Baso # (Auto) Neutrophils % (Manual) Band Neutrophils % Lymphocytes % (Manual) Monocytes % (Manual) Platelet Estimate Polychromasia Hypochromasia (manual) Puncture Site Lradal pCO2 29 L pO2 140 H HCO3 16.5 L ABG pH 7.30 L ABG Total CO2 15.2 L ABG O2 Saturation 98.9 H ABG Base Excess -10.8 L ABG Hemoglobin 12.7 ABG Carboxyhemoglobin 0.8 POC ABG HHb (Measured) 1.1 ABG Methemoglobin 1.2 Yoan Test Pos A-a O2 Difference 252.0 Respiratory Index 1.8 Hgb O2 Saturation 96.8 Vent Mode Prvc Mechanical Rate 20 FiO2 60.0 Tidal Volume 450 Sodium 146 Potassium 3.0 L Chloride 108 H Carbon Dioxide 16 L Anion Gap 25 H BUN 55 H Creatinine 5.3 H Est GFR ( Amer) 10 Est GFR (Non-Af Amer) 8 Random Glucose 113 H Calcium 7.3 L Phosphorus 5.6 H Magnesium 1.9 Iron TIBC % Saturation Ferritin Total Bilirubin 0.4 AST 55 H ALT 33 Alkaline Phosphatase 54 Ammonia CK-MB (Mass) 12.9 H Total Protein 5.7 L Albumin 2.7 L Globulin 3.0 Albumin/Globulin Ratio 0.9 L Vitamin B12 Folate Ur Random Creatinine U Random Total Protein Complement C3 Complement C4 Hep Bs Antigen Hep Bs Antibody Hepatitis C Antibody HIV 1&2 Antibody Screen 08/01/18 08/01/18 08/01/18 08:33 15:22 15:22 WBC RBC Hgb Hct MCV MCH MCHC RDW Plt Count MPV Neut % (Auto) Lymph % (Auto) [place] % (Auto) Eos % (Auto) Baso % (Auto) Neut # (Auto) Lymph # (Auto) [place] # (Auto) Eos # (Auto) Baso # (Auto) Neutrophils % (Manual) Band Neutrophils % Lymphocytes % (Manual) Monocytes % (Manual) Platelet Estimate Polychromasia Hypochromasia (manual) Puncture Site pCO2 pO2 HCO3 ABG pH ABG Total CO2 ABG O2 Saturation ABG Base Excess ABG Hemoglobin ABG Carboxyhemoglobin POC ABG HHb (Measured) ABG Methemoglobin Yoan Test A-a O2 Difference Respiratory Index Hgb O2 Saturation Vent Mode Mechanical Rate FiO2 Tidal Volume Sodium Potassium Chloride Carbon Dioxide Anion Gap BUN Creatinine Est GFR ( Amer) Est GFR (Non-Af Amer) Random Glucose Calcium Phosphorus Magnesium Iron TIBC % Saturation Ferritin 221.0 Total Bilirubin AST ALT Alkaline Phosphatase Ammonia 19 D CK-MB (Mass) Total Protein Albumin Globulin Albumin/Globulin Ratio Vitamin B12 > 1000 H Folate 6.0 Ur Random Creatinine U Random Total Protein Complement C3 69.0 L Complement C4 Hep Bs Antigen Hep Bs Antibody Hepatitis C Antibody HIV 1&2 Antibody Screen 08/01/18 08/01/18 08/01/18 15:22 15:22 15:28 WBC RBC Hgb Hct MCV MCH MCHC RDW Plt Count MPV Neut % (Auto) Lymph % (Auto) [place] % (Auto) Eos % (Auto) Baso % (Auto) Neut # (Auto) Lymph # (Auto) [place] # (Auto) Eos # (Auto) Baso # (Auto) Neutrophils % (Manual) Band Neutrophils % Lymphocytes % (Manual) Monocytes % (Manual) Platelet Estimate Polychromasia Hypochromasia (manual) Puncture Site pCO2 pO2 HCO3 ABG pH ABG Total CO2 ABG O2 Saturation ABG Base Excess ABG Hemoglobin ABG Carboxyhemoglobin POC ABG HHb (Measured) ABG Methemoglobin Yoan Test A-a O2 Difference Respiratory Index Hgb O2 Saturation Vent Mode Mechanical Rate FiO2 Tidal Volume Sodium Potassium Chloride Carbon Dioxide Anion Gap BUN Creatinine Est GFR ( Amer) Est GFR (Non-Af Amer) Random Glucose Calcium Phosphorus Magnesium Iron 12 L TIBC 164 L % Saturation 7 L Ferritin Total Bilirubin AST ALT Alkaline Phosphatase Ammonia CK-MB (Mass) Total Protein Albumin Globulin Albumin/Globulin Ratio Vitamin B12 Folate Ur Random Creatinine 196.2 U Random Total Protein Cancelled Complement C3 Complement C4 Hep Bs Antigen Hep Bs Antibody Hepatitis C Antibody HIV 1&2 Antibody Screen Negative 08/01/18 08/01/18 15:28 15:29 WBC RBC Hgb Hct MCV MCH MCHC RDW Plt Count MPV Neut % (Auto) Lymph % (Auto) [place] % (Auto) Eos % (Auto) Baso % (Auto) Neut # (Auto) Lymph # (Auto) [place] # (Auto) Eos # (Auto) Baso # (Auto) Neutrophils % (Manual) Band Neutrophils % Lymphocytes % (Manual) Monocytes % (Manual) Platelet Estimate Polychromasia Hypochromasia (manual) Puncture Site pCO2 pO2 HCO3 ABG pH ABG Total CO2 ABG O2 Saturation ABG Base Excess ABG Hemoglobin ABG Carboxyhemoglobin POC ABG HHb (Measured) ABG Methemoglobin Yoan Test A-a O2 Difference Respiratory Index Hgb O2 Saturation Vent Mode Mechanical Rate FiO2 Tidal Volume Sodium Potassium Chloride Carbon Dioxide Anion Gap BUN Creatinine Est GFR ( Amer) Est GFR (Non-Af Amer) Random Glucose Calcium Phosphorus Magnesium Iron TIBC % Saturation Ferritin Total Bilirubin AST ALT Alkaline Phosphatase Ammonia CK-MB (Mass) Total Protein Albumin Globulin Albumin/Globulin Ratio Vitamin B12 Folate Ur Random Creatinine U Random Total Protein 84.0 H Complement C3 Complement C4 22.4 Hep Bs Antigen Hep Bs Antibody Hepatitis C Antibody HIV 1&2 Antibody Screen
[2018-08-02] MEDS: Albuterol-Ipratrop 3 mg / 0.5 (3 ml) UD INH SCH ×4 (03:01→19:54)
[2018-08-02] MEDS: Sodium Chloride 0.9% 1,000 ML IV SCH (05:37)
[2018-08-02] MEDS: Pantoprazole 40 mg Susp UD PO SCH (05:41)
[2018-08-02] MEDS: Piperacill/Tazo 3.375gm in Dex 3.375 GM/50 ML BAG IVPB SCH (05:41)
[2018-08-02 05:48] LABS: ABG ALLEN TEST POS; ARTERIAL BLOOD GAS HCO3 20.2 mmol/L (21-28); ARTERIAL BLOOD GAS HEMOGLOBIN 7.4 g/dL (11.7-17.4); ARTERIAL BLOOD GAS O2 SAT 99.1 % (95-98); ARTERIAL BLOOD GAS PCO2 30 mm/Hg (35-45); ARTERIAL BLOOD GAS PH 7.39 (7.35-7.45); ARTERIAL BLOOD GAS PO2 184 mm/Hg (80-100); ARTERIAL BLOOD GAS TCO2 19.1 mmol/L (22-28)
[2018-08-02 05:57] LABS: BASO % 0.1 % (0.0-2.0); HEMOGLOBIN 7.2 g/dL (11.0-16.0); LYMPH # 0.4 K/uL (1.0-4.3); LYMPH % 2.8 % (20.0-40.0); MEAN CELL VOLUME 92.7 fL (81.0-99.0); MEAN CORPUSCULAR HEMOGLOBIN 31.7 pg (27.0-31.0); MEAN CORPUSCULAR HGB CONC 34.2 g/dL (33.0-37.0); MEAN PLATELET VOLUME 8.4 fL (7.2-11.7); MONO # 0.3 K/uL (0.0-0.8); MONO % 2.1 % (0.0-10.0); NEUT # 14.3 K/uL (1.8-7.0); NRBC % 0.1 % (0.0-2.0); PLATELET COUNT 203 K/uL (130-400); RBC 2.29 Mil/uL (3.80-5.20); RED CELL DISTRIBUTION WIDTH 14.5 % (11.5-14.5)
[2018-08-02 06:21] LABS: IRON 14 ug/dL (37-170)
[2018-08-02 06:25] LABS: ALBUMIN 2.8 g/dL (3.5-5.0); CALCIUM 8.1 mg/dl (8.6-10.4)
[2018-08-02 06:30] LABS: % IRON SATURATION 9 (20-55); TOTAL IRON BINDING CAPACITY 161 ug/dL (250-450)
[2018-08-02 07:25] LABS: FOLATE 4.7 ng/mL
[2018-08-02 09:21] LABS: BANDS 17 % (0-2); LYMPHOCYTE 3 % (20-40); MONOCYTE 3 % (0-10); NEUTROPHIL 77 % (50-75); TOTAL CELLS COUNTED 100
[2018-08-02 09:22] LABS: HYPOCHROMIC SLIGHT; PLATELET ESTIMATE NORMAL (NORMAL); POLYCHROMIC SLIGHT
[2018-08-02] MEDS: Bacitracin 500 Units/gm Oint Foilpak UD TOP SCH ×2 (09:43→17:41)
[2018-08-02] MEDS: MethylPREDNISolone 40 mg Vial IVP SCH ×2 (09:44→21:26)
--- NOTE | 2018-08-02 13:36 | RAD ---
Date of service: 08/02/2018 HISTORY: vent COMPARISON: 08/01/2018 FINDINGS: LUNGS: No active pulmonary disease. PLEURA: No significant pleural effusion identified, no pneumothorax apparent. CARDIOVASCULAR: Endotracheal tube and nasogastric tube grossly unchanged. OSSEOUS STRUCTURES: No significant abnormalities. VISUALIZED UPPER ABDOMEN: Normal. OTHER FINDINGS: None. IMPRESSION: No active disease.
[2018-08-02] MEDS: Piperacill/Tazo 2.25gm in Dex 2.25 GM/50 ML BAG IVPB SCH ×3 (14:42→23:36)
[2018-08-02] MEDS: Ergocalciferol 50,000 Intl Units Cap PO SCH (14:42)
--- NOTE | 2018-08-02 16:02 | CP.PCM.PN ---
Subjective - Date & Time of Evaluation Date of Evaluation: 08/02/18 Time of Evaluation: 16:00 - Subjective Subjective: Nephrology Consultation Note Assessment: critical Acute Kidney Injury (N17.9) likely due to ATN Hypertensive Chronic Kidney Disease (I12.9) Hypokalemia Chronic Kidney Disease (N18.9) Stage ? with ? mg proteinuria (R80.9) likely due to HTN ? ESRD Anemia (D64.9), Hyperphosphatemia (E83.39) left lung collapse, UTI Mitral Regurg, depression/Anxiety Plan she had 1st session 07/31/18. plan for next HD today and then likely tomorrow Maintain hemodynamics stable. Avoid hypotension. Patient not on ACEI/ARB due to recent ROBIN Monitor Input/Output, daily weights and renal function with basic metabolic panel started Fe, MVI, epogen and weekly Vit D PRBC as needed Check urine analysis, spot protein/creatinine, albumin/creatinine ratio. Pending renal sonogram. CPK Check GN work up as C3, C4, LINDSEY, Anti dsDNA, ASO titers, ANCA (MPO and AL-3), Anti GBM antibody, HIV Anemia work up with TSAT/Ferritin/Vitamin B12/folate, serum protein electrophoresis with immunofixation, serum free light chain assay ([place]/Lambda) Check for 25-OH vitamin D, iPTH, phosphorus level. Dose meds/antibiotics for reduced GFR. Avoid fleets enema/magnesium based laxatives. Avoid nephrotoxins/NSAIDs/ iodinated contrast (unless needed emergently) Glycemic control Further work up for as per primary team Thanks for allowing me to participate in care of your patient. Will follow patient with you. Please call if any Qs. had loriw team Dr Heriberto Hernandez Office: [phone] Subjective: Noted events overnight. Patients intubated and sedated. on PS Physical Examination: General Appearance: Comfortable, in no acute respiratory distress, intubated Vitals reviewed and noted as below Head; Atraumatic, normocephalic ENT: oally intubated EYES: Pupils are equal, round and reactive to light accommodation. Eye muscles and extraocular movement intact. Sclera is anicteric. Neck; supple no lymphadenopathy, no thyromegaly or bruit Lungs: Normal respiratory rate/effort. Breath sounds b/l improved Heart: Increased rate. s1s2 normal. No rub or gallop. SM + at apex Extremities: 1-2+ edema. No varicose veins Neurological: Patient is sedated Skin: Warm and dry. Normal turgor. No rash. Palpitation: Normal elasticity for age Abdomen: Abdomen is soft. Bowel sounds +. There is no abdominal tenderness, no guarding/rigidity no organomegaly Psych: unable MSK: no joint tenderness or swelling. Digits and nails normal, no deformity : kidney or bladder not palpable access: femoral shiley Labs/imaging reviewed. Past medical history, past surgical history, family history, social history, allergy reviewed and noted as below Family hx: no hx of CKD. Rest non-contributory work up: CXR: left lung collapse Hep B/C neg UA 2+ protein 1+ blood Objective - Vital Signs/Intake and Output Vital Signs (last 24 hours): Temp Pulse Resp BP Pulse Ox 97.6 F 108 H 19 141/79 97 08/02/18 12:00 08/02/18 15:01 08/02/18 15:01 08/02/18 15:00 08/02/18 15:01 Intake and Output: 08/02/18 08/02/18 06:59 18:59 Intake Total 1180 760 Output Total 100 Balance 1080 760 - Medications Medications: Current Medications Albuterol/Ipratropium (Duoneb 3 Mg/0.5 Mg (3 Ml) Ud) 3 ml INH RQ6 [facility] Last Admin: 08/02/18 13:39 Dose: 3 ml Bacitracin (Bacitracin) 1 ea TOP BID [facility] Stop: 08/07/18 20:01 Last Admin: 08/02/18 09:43 Dose: 1 ea Calcium Acetate (Phoslo) 2,001 mg PO TIDCC [facility] Last Admin: 08/02/18 12:00 Dose: 2,001 mg Epoetin Morales (Procrit) 10,000 unit IV TTS [facility] Ergocalciferol (Drisdol 50,000 Intl Units Cap) 1 cap PO Q7D [facility] Last Admin: 08/02/18 14:42 Dose: 1 cap Ferrous Gluconate (Fergon) 324 mg PO TID [facility] Last Admin: 08/02/18 14:42 Dose: 324 mg Heparin Sodium (Porcine) (Heparin) 5,000 units SC Q8 [facility] Last Admin: 08/02/18 14:44 Dose: 5,000 units Sodium Chloride (Sodium Chloride 0.9%) 1,000 mls @ 50 mls/hr IV .Q20H [facility] Last Admin: 08/02/18 05:37 Dose: 50 mls/hr Piperacillin Sod/Tazobactam Sod (Zosyn 2.25 Gm Iv Premix) 2.25 gm in 50 mls @ 100 mls/hr IVPB Q6H [facility]; Protocol Last Admin: 08/02/18 14:42 Dose: 100 mls/hr Lorazepam (Ativan) 0.5 mg IVP Q6 PRN PRN Reason: Agitation Last Admin: 08/02/18 14:41 Dose: 0.5 mg Methylprednisolone (Solu-Medrol) 40 mg IVP Q12H [facility] Last Admin: 08/02/18 09:44 Dose: 40 mg Pantoprazole Sodium (Protonix Susp) 40 mg PO 0600 [facility] Last Admin: 08/02/18 05:41 Dose: 40 mg Vitamin B Complex/Vit C/Folic Acid (Nephro-Fortino) 1 tab PO 0800 [facility] - Labs Labs: 08/02/18 05:48 08/02/18 05:49 PT 12.1 SECONDS (9.7-12.2) 07/31/18 15:47 INR 1.1 07/31/18 15:47 APTT 28 SECONDS (21-34) 07/31/18 15:47
[2018-08-02] MEDS: Epoetin Alfa 10,000 unit/ml Dialysis IV SCH (17:57)
--- NOTE | 2018-08-02 18:08 | CP.CCUPN ---
CCU Subjective - Physician Review Subjective (Free Text): Pt seen aned examined at bedside. pt unable to provide a ROS. to get HD today. [facility] CCU Objective - Vital Signs / Intake & Output Vital Signs (Last 4 hours): Vital Signs Temp Pulse Pulse Resp BP BP Pulse Ox 08/02/18 17:59 108 H 20 113/75 100 08/02/18 17:40 109 H 20 121/85 100 08/02/18 17:20 108 H 19 132/65 100 08/02/18 17:14 103 H 23 98 08/02/18 17:00 101 H 104 H 16 132/86 128/82 99 08/02/18 16:40 110 H 18 132/91 H 100 08/02/18 16:20 110 H 17 130/72 100 08/02/18 16:01 103 H 16 100 08/02/18 16:00 97.6 F 102 H 91 H 18 147/68 147/97 H 100 08/02/18 15:01 108 H 19 97 08/02/18 15:00 83 16 141/79 98 Intake and Output (Last 8hrs): Intake & Output 08/02/18 08/02/18 08/02/18 06:59 14:59 22:59 Intake Total 710 680 240 Output Total 100 Balance 610 680 240 Weight 162 lb Intake: Intake, IV Amount 450 300 150 Right Antecubital 450 300 150 Tube Feeding 260 180 90 Other 200 Output: Urine 100 Urethral (White) 100 - Physical Exam Head: Positive for: Atraumatic, Normocephalic Pupils: Positive for: PERRL Extroacular Muscles: Positive for: EOMI Mouth: Positive for: Moist Mucous Membranes Pharnyx: Positive for: Uvular Deviation Nose (Internal): Positive for: No Active Bleeding Upper Extremity: Positive for: Tenderness (RUE) Lower Extremity: Positive for: Normal Inspection Neurological: Positive for: CN II-XII Intact Skin: Positive for: Warm, Dry Psychiatric: Positive for: Oriented x 3 - Medications Active Medications: Active Medications Generic Name Dose Route Start Last Admin Trade Name Freq PRN Reason Stop Dose Admin Albuterol/Ipratropium 3 ml 08/01/18 02:00 08/02/18 13:39 Duoneb 3 Mg/0.5 Mg (3 Ml) Ud INH 3 ml RQ6 JOSE Administration Bacitracin 1 ea 07/31/18 20:00 08/02/18 17:41 Bacitracin TOP 08/07/18 20:01 1 ea BID JOSE Administration Calcium Acetate 2,001 mg 08/01/18 08:00 08/02/18 17:42 Phoslo PO 2,001 mg TIDCC JOSE Administration Epoetin Morales 10,000 unit 08/02/18 13:00 08/02/18 17:57 Procrit IV 10,000 unit TTS JOSE Administration Ergocalciferol 1 cap 08/02/18 14:15 08/02/18 14:42 Drisdol 50,000 Intl Units Cap PO 1 cap Q7D JOSE Administration Ferrous Gluconate 324 mg 08/02/18 14:00 08/02/18 17:41 Fergon PO 324 mg TID JOSE Administration Heparin Sodium (Porcine) 5,000 units 07/31/18 22:00 08/02/18 14:44 Heparin SC 5,000 units Q8 JOSE Administration Sodium Chloride 1,000 mls @ 50 mls/hr 08/01/18 10:30 08/02/18 05:37 Sodium Chloride 0.9% IV 50 mls/hr .Q20H JOSE Administration Piperacillin Sod/Tazobactam Sod 2.25 gm in 50 mls @ 100 mls/hr 08/02/18 12:00 08/02/18 17:44 Zosyn 2.25 Gm Iv Premix IVPB 100 mls/hr Q6H JOSE Administration Protocol Lorazepam 0.5 mg 08/02/18 08:06 08/02/18 14:41 Ativan IVP 0.5 mg Q6 PRN Administration Agitation Methylprednisolone 40 mg 08/01/18 10:00 08/02/18 09:44 Solu-Medrol IVP 40 mg Q12H JOSE Administration Pantoprazole Sodium 40 mg 08/01/18 06:00 08/02/18 05:41 Protonix Susp PO 40 mg 0600 JOSE Administration Vitamin B Complex/Vit C/Folic Acid 1 tab 08/03/18 08:00 Nephro-Fortino PO 0800 JOSE - Patient Studies Lab Studies: Microbiology Studies 07/31/18 15:20 S.aureus & Coag-Neg Staph PNA FISH - Final Blood Blood Culture - Preliminary Gram Positive Cocci Gram Stain - Final 07/31/18 16:00 Blood Culture - Preliminary Blood NO GROWTH AFTER 48 HOURS 07/31/18 16:00 Urine Culture - Final Urine,Catheterized Escherichia Coli 07/31/18 20:57 Gram Stain - Final Abscess - Groin Wound Culture - Final Staphylococcus Aureus 07/31/18 20:26 Gram Stain - Final Groin Wound Culture - Final Staphylococcus Aureus 07/31/18 20:26 MRSA Culture (Admit) - Final Naris MRSA NOT DETECTED Lab Studies 08/02/18 08/02/18 08/02/18 Range/Units 05:49 05:49 05:49 WBC (4.8-10.8) K/uL RBC (3.80-5.20) Mil/uL Hgb (11.0-16.0) g/dL Hct (34.0-47.0) % MCV (81.0-99.0) fL MCH (27.0-31.0) pg MCHC (33.0-37.0) g/dL RDW (11.5-14.5) % Plt Count (130-400) K/uL MPV (7.2-11.7) fL Neut % (Auto) (50.0-75.0) % Lymph % (Auto) (20.0-40.0) % Stephenson % (Auto) (0.0-10.0) % Eos % (Auto) (0.0-4.0) % Baso % (Auto) (0.0-2.0) % Neut # (Auto) (1.8-7.0) K/uL Lymph # (Auto) (1.0-4.3) K/uL Stephenson # (Auto) (0.0-0.8) K/uL Eos # (Auto) (0.0-0.7) K/uL Baso # (Auto) (0.0-0.2) K/uL Neutrophils % (Manual) (50-75) % Band Neutrophils % (0-2) % Lymphocytes % (Manual) (20-40) % Monocytes % (Manual) (0-10) % Platelet Estimate (NORMAL) Polychromasia Hypochromasia (manual) Puncture Site pCO2 (35-45) mm/Hg pO2 (80-100) mm/Hg HCO3 (21-28) mmol/L ABG pH (7.35-7.45) ABG Total CO2 (22-28) mmol/L ABG O2 Saturation (95-98) % ABG Base Excess (-2.0-3.0) mmol/L ABG Hemoglobin (11.7-17.4) g/dL ABG Carboxyhemoglobin (0.5-1.5) % POC ABG HHb (Measured) (0.0-5.0) % ABG Methemoglobin (0.0-3.0) % Yoan Test A-a O2 Difference mm/Hg Respiratory Index Hgb O2 Saturation (95.0-98.0) % Vent Mode Mechanical Rate FiO2 % Tidal Volume PEEP Sodium 147 (132-148) mmol/L Potassium 3.3 L (3.6-5.2) mmol/L Chloride 110 H (98-107) mmol/L Carbon Dioxide 17 L (22-30) mmol/L Anion Gap 23 H (10-20) BUN 64 H (7-17) mg/dL Creatinine 6.1 H (0.7-1.2) mg/dL Est GFR ( Amer) 8 Est GFR (Non-Af Amer) 7 Random Glucose 178 H (65-105) mg/dL Hemoglobin A1c (4.2-6.5) % Calcium 8.1 L (8.6-10.4) mg/dl Phosphorus (2.5-4.5) mg/dL Magnesium (1.6-2.3) mg/dL Iron 14 L (37-170) ug/dL TIBC 161 L (250-450) ug/dL % Saturation 9 L (20-55) Total Bilirubin 0.5 (0.2-1.3) mg/dL AST 38 H D (14-36) U/L ALT 29 (9-52) U/L Alkaline Phosphatase 46 (38-126) U/L Total Protein 5.6 L (6.3-8.3) g/dL Albumin 2.8 L (3.5-5.0) g/dL Globulin 2.8 (2.2-3.9) gm/dL Albumin/Globulin Ratio 1.0 (1.0-2.1) Vitamin B12 > 1000 H (239-931) pg/mL 25-OH Vitamin D Total (30.0-100.0) NG/ML Folate 4.7 ng/mL PTH Intact Whole Molec (14-64) pg/mL 08/02/18 08/02/18 08/02/18 Range/Units 05:49 05:49 05:48 WBC (4.8-10.8) K/uL RBC (3.80-5.20) Mil/uL Hgb (11.0-16.0) g/dL Hct (34.0-47.0) % MCV (81.0-99.0) fL MCH (27.0-31.0) pg MCHC (33.0-37.0) g/dL RDW (11.5-14.5) % Plt Count (130-400) K/uL MPV (7.2-11.7) fL Neut % (Auto) (50.0-75.0) % Lymph % (Auto) (20.0-40.0) % Stephenson % (Auto) (0.0-10.0) % Eos % (Auto) (0.0-4.0) % Baso % (Auto) (0.0-2.0) % Neut # (Auto) (1.8-7.0) K/uL Lymph # (Auto) (1.0-4.3) K/uL Stephenson # (Auto) (0.0-0.8) K/uL Eos # (Auto) (0.0-0.7) K/uL Baso # (Auto) (0.0-0.2) K/uL Neutrophils % (Manual) (50-75) % Band Neutrophils % (0-2) % Lymphocytes % (Manual) (20-40) % Monocytes % (Manual) (0-10) % Platelet Estimate (NORMAL) Polychromasia Hypochromasia (manual) Puncture Site pCO2 (35-45) mm/Hg pO2 (80-100) mm/Hg HCO3 (21-28) mmol/L ABG pH (7.35-7.45) ABG Total CO2 (22-28) mmol/L ABG O2 Saturation (95-98) % ABG Base Excess (-2.0-3.0) mmol/L ABG Hemoglobin (11.7-17.4) g/dL ABG Carboxyhemoglobin (0.5-1.5) % POC ABG HHb (Measured) (0.0-5.0) % ABG Methemoglobin (0.0-3.0) % Yoan Test A-a O2 Difference mm/Hg Respiratory Index Hgb O2 Saturation (95.0-98.0) % Vent Mode Mechanical Rate FiO2 % Tidal Volume PEEP Sodium (132-148) mmol/L Potassium (3.6-5.2) mmol/L Chloride (98-107) mmol/L Carbon Dioxide (22-30) mmol/L Anion Gap (10-20) BUN (7-17) mg/dL Creatinine (0.7-1.2) mg/dL Est GFR ( Amer) Est GFR (Non-Af Amer) Random Glucose (65-105) mg/dL Hemoglobin A1c 5.4 (4.2-6.5) % Calcium (8.6-10.4) mg/dl Phosphorus 3.3 (2.5-4.5) mg/dL Magnesium 1.9 (1.6-2.3) mg/dL Iron (37-170) ug/dL TIBC (250-450) ug/dL % Saturation (20-55) Total Bilirubin (0.2-1.3) mg/dL AST (14-36) U/L ALT (9-52) U/L Alkaline Phosphatase (38-126) U/L Total Protein (6.3-8.3) g/dL Albumin (3.5-5.0) g/dL Globulin (2.2-3.9) gm/dL Albumin/Globulin Ratio (1.0-2.1) Vitamin B12 (239-931) pg/mL 25-OH Vitamin D Total < 12.8 L (30.0-100.0) NG/ML Folate ng/mL PTH Intact Whole Molec (14-64) pg/mL 08/02/18 08/02/18 07/31/18 Range/Units 05:48 05:20 20:57 WBC 15.0 H (4.8-10.8) K/uL RBC 2.29 L (3.80-5.20) Mil/uL Hgb 7.2 L D (11.0-16.0) g/dL Hct 21.2 L (34.0-47.0) % MCV 92.7 (81.0-99.0) fL MCH 31.7 H (27.0-31.0) pg MCHC 34.2 (33.0-37.0) g/dL RDW 14.5 (11.5-14.5) % Plt Count 203 (130-400) K/uL MPV 8.4 (7.2-11.7) fL Neut % (Auto) 95.0 H (50.0-75.0) % Lymph % (Auto) 2.8 L (20.0-40.0) % Stephenson % (Auto) 2.1 (0.0-10.0) % Eos % (Auto) 0.0 (0.0-4.0) % Baso % (Auto) 0.1 (0.0-2.0) % Neut # (Auto) 14.3 H (1.8-7.0) K/uL Lymph # (Auto) 0.4 L (1.0-4.3) K/uL Stephenson # (Auto) 0.3 (0.0-0.8) K/uL Eos # (Auto) 0.0 (0.0-0.7) K/uL Baso # (Auto) 0.0 (0.0-0.2) K/uL Neutrophils % (Manual) 77 H (50-75) % Band Neutrophils % 17 H* (0-2) % Lymphocytes % (Manual) 3 L (20-40) % Monocytes % (Manual) 3 (0-10) % Platelet Estimate Normal (NORMAL) Polychromasia Slight Hypochromasia (manual) Slight Puncture Site R rad pCO2 30 L (35-45) mm/Hg pO2 184 H (80-100) mm/Hg HCO3 20.2 L (21-28) mmol/L ABG pH 7.39 (7.35-7.45) ABG Total CO2 19.1 L (22-28) mmol/L ABG O2 Saturation 99.1 H (95-98) % ABG Base Excess -6.1 L (-2.0-3.0) mmol/L ABG Hemoglobin 7.4 L (11.7-17.4) g/dL ABG Carboxyhemoglobin 0.8 (0.5-1.5) % POC ABG HHb (Measured) 0.9 (0.0-5.0) % ABG Methemoglobin 0.9 (0.0-3.0) % Yoan Test Pos A-a O2 Difference 135.0 mm/Hg Respiratory Index 0.7 Hgb O2 Saturation 97.4 (95.0-98.0) % Vent Mode Prvc Mechanical Rate 20 FiO2 50.0 % Tidal Volume 450 PEEP 5 Sodium (132-148) mmol/L Potassium (3.6-5.2) mmol/L Chloride (98-107) mmol/L Carbon Dioxide (22-30) mmol/L Anion Gap (10-20) BUN (7-17) mg/dL Creatinine (0.7-1.2) mg/dL Est GFR ( Amer) Est GFR (Non-Af Amer) Random Glucose (65-105) mg/dL Hemoglobin A1c (4.2-6.5) % Calcium (8.6-10.4) mg/dl Phosphorus (2.5-4.5) mg/dL Magnesium (1.6-2.3) mg/dL Iron (37-170) ug/dL TIBC (250-450) ug/dL % Saturation (20-55) Total Bilirubin (0.2-1.3) mg/dL AST (14-36) U/L ALT (9-52) U/L Alkaline Phosphatase (38-126) U/L Total Protein (6.3-8.3) g/dL Albumin (3.5-5.0) g/dL Globulin (2.2-3.9) gm/dL Albumin/Globulin Ratio (1.0-2.1) Vitamin B12 (239-931) pg/mL 25-OH Vitamin D Total (30.0-100.0) NG/ML Folate ng/mL PTH Intact Whole Molec 268 H (14-64) pg/mL Laboratory Results - last 24 hr 07/31/18 08/02/18 08/02/18 20:57 05:20 05:48 WBC 15.0 H RBC 2.29 L Hgb 7.2 L D Hct 21.2 L MCV 92.7 MCH 31.7 H MCHC 34.2 RDW 14.5 Plt Count 203 MPV 8.4 Neut % (Auto) 95.0 H Lymph % (Auto) 2.8 L Stephenson % (Auto) 2.1 Eos % (Auto) 0.0 Baso % (Auto) 0.1 Neut # (Auto) 14.3 H Lymph # (Auto) 0.4 L Stephenson # (Auto) 0.3 Eos # (Auto) 0.0 Baso # (Auto) 0.0 Neutrophils % (Manual) 77 H Band Neutrophils % 17 H* Lymphocytes % (Manual) 3 L Monocytes % (Manual) 3 Platelet Estimate Normal Polychromasia Slight Hypochromasia (manual) Slight Puncture Site R rad pCO2 30 L pO2 184 H HCO3 20.2 L ABG pH 7.39 ABG Total CO2 19.1 L ABG O2 Saturation 99.1 H ABG Base Excess -6.1 L ABG Hemoglobin 7.4 L ABG Carboxyhemoglobin 0.8 POC ABG HHb (Measured) 0.9 ABG Methemoglobin 0.9 Yoan Test Pos A-a O2 Difference 135.0 Respiratory Index 0.7 Hgb O2 Saturation 97.4 Vent Mode Prvc Mechanical Rate 20 FiO2 50.0 Tidal Volume 450 PEEP 5 Sodium Potassium Chloride Carbon Dioxide Anion Gap BUN Creatinine Est GFR ( Amer) Est GFR (Non-Af Amer) Random Glucose Hemoglobin A1c Calcium Phosphorus Magnesium Iron TIBC % Saturation Total Bilirubin AST ALT Alkaline Phosphatase Total Protein Albumin Globulin Albumin/Globulin Ratio Vitamin B12 25-OH Vitamin D Total Folate PTH Intact Whole Molec 268 H 08/02/18 08/02/18 08/02/18 05:48 05:49 05:49 WBC RBC Hgb Hct MCV MCH MCHC RDW Plt Count MPV Neut % (Auto) Lymph % (Auto) Stephenson % (Auto) Eos % (Auto) Baso % (Auto) Neut # (Auto) Lymph # (Auto) Stephenson # (Auto) Eos # (Auto) Baso # (Auto) Neutrophils % (Manual) Band Neutrophils % Lymphocytes % (Manual) Monocytes % (Manual) Platelet Estimate Polychromasia Hypochromasia (manual) Puncture Site pCO2 pO2 HCO3 ABG pH ABG Total CO2 ABG O2 Saturation ABG Base Excess ABG Hemoglobin ABG Carboxyhemoglobin POC ABG HHb (Measured) ABG Methemoglobin Yoan Test A-a O2 Difference Respiratory Index Hgb O2 Saturation Vent Mode Mechanical Rate FiO2 Tidal Volume PEEP Sodium Potassium Chloride Carbon Dioxide Anion Gap BUN Creatinine Est GFR ( Amer) Est GFR (Non-Af Amer) Random Glucose Hemoglobin A1c 5.4 Calcium Phosphorus 3.3 Magnesium 1.9 Iron TIBC % Saturation Total Bilirubin AST ALT Alkaline Phosphatase Total Protein Albumin Globulin Albumin/Globulin Ratio Vitamin B12 25-OH Vitamin D Total < 12.8 L Folate PTH Intact Whole Molec 08/02/18 08/02/18 08/02/18 05:49 05:49 05:49 WBC RBC Hgb Hct MCV MCH MCHC RDW Plt Count MPV Neut % (Auto) Lymph % (Auto) Stephenson % (Auto) Eos % (Auto) Baso % (Auto) Neut # (Auto) Lymph # (Auto) Stephenson # (Auto) Eos # (Auto) Baso # (Auto) Neutrophils % (Manual) Band Neutrophils % Lymphocytes % (Manual) Monocytes % (Manual) Platelet Estimate Polychromasia Hypochromasia (manual) Puncture Site pCO2 pO2 HCO3 ABG pH ABG Total CO2 ABG O2 Saturation ABG Base Excess ABG Hemoglobin ABG Carboxyhemoglobin POC ABG HHb (Measured) ABG Methemoglobin Yoan Test A-a O2 Difference Respiratory Index Hgb O2 Saturation Vent Mode Mechanical Rate FiO2 Tidal Volume PEEP Sodium 147 Potassium 3.3 L Chloride 110 H Carbon Dioxide 17 L Anion Gap 23 H BUN 64 H Creatinine 6.1 H Est GFR ( Amer) 8 Est GFR (Non-Af Amer) 7 Random Glucose 178 H Hemoglobin A1c Calcium 8.1 L Phosphorus Magnesium Iron 14 L TIBC 161 L % Saturation 9 L Total Bilirubin 0.5 AST 38 H D ALT 29 Alkaline Phosphatase 46 Total Protein 5.6 L Albumin 2.8 L Globulin 2.8 Albumin/Globulin Ratio 1.0 Vitamin B12 > 1000 H 25-OH Vitamin D Total Folate 4.7 PTH Intact Whole Molec Fingerstick Blood Sugar Results: 101 Review of Systems - Review of Systems Systems not reviewed;Unavailable: Intubated Assessment/Plan - Assessment and Plan (Free Text) Assessment: 62yo F. PMHx HTN, hyperlipidemia, and depression. p/w acute respiratory failure, in acute renal failure in severe metabolic acidosis. s/p shiley cath with Dr Casanova Neuro: -comatose -monitor mental status MSK: Consulting Ortho for R upper ext possible humerus fracture seen on CXR f/u UE Xray Pulm: -acute respiratory failure on vent. CV: -hemodynamically stable Hem: -no acute issues Renal: -HAGMA with ROBIN, requiring emergent dialysis. -Dr Triana consulted follow recs: plan for next HD today and then likely tomorrow Maintain hemodynamics stable. Avoid hypotension. Patient not on ACEI/ARB due to recent ROBIN Monitor Input/Output, daily weights and renal function with basic metabolic panel started Fe, MVI, epogen and weekly Vit D PRBC as needed Check urine analysis, spot protein/creatinine, albumin/creatinine ratio. Pending renal sonogram. CPK Check GN work up as C3, C4, LINDSEY, Anti dsDNA, ASO titers, ANCA (MPO and OK-3), Anti GBM antibody, HIV Anemia work up with TSAT/Ferritin/Vitamin B12/folate, serum protein electrophoresis with immunofixation, serum free light chain assay ([employer]/ Lambda) Check for 25-OH vitamin D, iPTH, phosphorus level. -s/p shiley cath with Dr Casanova Endo: -no acute issues -montitor Glucose GI: -NPO, Nephro ID: -empiric therapy with Zosyn. source of sepsis, if there is one, is uncertain. groin wound pos for Gram pos cocci aerobic -possible Cimex mite infection (bed bugs) -f/u cultures DVT proph - heparin sq GI proph - protonix white for strict I/O's during acute illness Code status - full code
[2018-08-03] MEDS: Albuterol-Ipratrop 3 mg / 0.5 (3 ml) UD INH SCH ×4 (01:11→20:44)
--- NOTE | 2018-08-03 02:28 | PN ---
DATE: 08/02/2018 SUBJECTIVE: The patient is a 62-year-old female. The patient was seen and examined at the bedside on 08/02/2018. Unable to provide review of systems. The patient is very quiet , got iv access from Dr. Casanova to get hemodialysis. Last night event noted. The patient is still intubated and sedated, comfortable, not look like in distress. PHYSICAL EXAMINATION: VITAL SIGNS: Temperature 97.6, pulse 108, respiratory rate 19, blood pressure 140/79, pulse oximetry 97. HEENT: Head, normocephalic and atraumatic. Eyes, PERRLA. Extraocular muscles intact. Conjunctivae clear. Nose patent. Mucous membranes moist. NECK: Supple. No carotid bruits. No JVD or thyromegaly. CHEST: Bilaterally symmetrical. HEART: S1 and S2 positive. LUNGS: Positive wheezing bilaterally. ABDOMEN: Soft. Positive bowel sounds. No organomegaly. EXTREMITIES: Trace edema. No cyanosis. NEUROLOGIC: The patient is sedated. MEDICATIONS: Albuterol, bacitracin, Procrit, vitamin D, Fergon, heparin, NS, Zosyn, Ativan, Solu-Medrol, pantoprazole, vitamins. LABORATORY DATA: White blood cell 15, hemoglobin 7.2, hematocrit 21.2, platelets 203. Sodium 147, potassium 3.3, BUN 64, creatinine 6.1, glucose 178. ASSESSMENT AND PLAN: Mrs. Romy Feng is a 62-year-old lady with leukocytosis, anemia, hypokalemia, renal insufficiency, hyperglycemia. The patient had acute kidney injury likely due to acute tubular necrosis, hypertension, chronic kidney disease, hypokalemia, chronic kidney disease, proteinuria, hyperphosphatemia, left lung collapse, urinary tract infection, mitral regurgitation, depression, and anxiety. The patient had a first session on 07/31/2018, plan for next hemodialysis likely tomorrow. Maintain hemodynamically stable. Avoid hypotension. Epogen weekly. Vitamin D weekly. Workup is pending including human immunodeficiency virus. Appreciated program lead's input. Gastrointestinal and deep vein thrombosis. We will follow up. Pina Montiel MD SARA
[2018-08-03] MEDS: Sodium Chloride 0.9% 1,000 ML IV SCH (03:36)
[2018-08-03 04:22] LABS: ARTERIAL BLOOD GAS HCO3 23.9 mmol/L (21-28); ARTERIAL BLOOD GAS HEMOGLOBIN 9.6 g/dL (11.7-17.4); ARTERIAL BLOOD GAS O2 SAT 99.4 % (95-98); ARTERIAL BLOOD GAS PCO2 31 mm/Hg (35-45); ARTERIAL BLOOD GAS PH 7.46 (7.35-7.45); ARTERIAL BLOOD GAS PO2 203 mm/Hg (80-100)
[2018-08-03] MEDS: Pantoprazole 40 mg Susp UD PO SCH (05:38)
[2018-08-03] MEDS: Piperacill/Tazo 2.25gm in Dex 2.25 GM/50 ML BAG IVPB SCH ×3 (05:42→17:13)
[2018-08-03 06:30] LABS: BASO % 0.3 % (0.0-2.0); HEMOGLOBIN 7.2 g/dL (11.0-16.0); LYMPH # 0.5 K/uL (1.0-4.3); LYMPH % 3.5 % (20.0-40.0); MEAN CELL VOLUME 91.9 fL (81.0-99.0); MEAN CORPUSCULAR HEMOGLOBIN 31.6 pg (27.0-31.0); MEAN CORPUSCULAR HGB CONC 34.3 g/dL (33.0-37.0); MEAN PLATELET VOLUME 8.6 fL (7.2-11.7); MONO # 0.4 K/uL (0.0-0.8); MONO % 2.7 % (0.0-10.0); NEUT # 14.6 K/uL (1.8-7.0); NEUT % 93.5 % (50.0-75.0); NRBC % 0.3 % (0.0-2.0); PLATELET COUNT 178 K/uL (130-400); RBC 2.29 Mil/uL (3.80-5.20); RED CELL DISTRIBUTION WIDTH 14.5 % (11.5-14.5); WHITE BLOOD COUNT 15.6 K/uL (4.8-10.8)
[2018-08-03 06:48] LABS: ALBUMIN 2.9 g/dL (3.5-5.0); CALCIUM 8.5 mg/dl (8.6-10.4)
--- NOTE | 2018-08-03 08:24 | CP.PCM.CON ---
History of Present Illness - History of Present Illness History of Present Illness: ORthopedic consultation for Dr. Becker 62F found unconscious at home, intubated in field, found to have proximal humeral shaft fracture. Staff noticed that arm did not look quite right and imaging was ordered. Patient has been intubated and sedated since admission. Today she is more awake, she doesn't answer questions but she did follow simple commands. Unclear if there was fall or trauma at home. Per record, son states she had been drowsy for a few days prior to admission and EMS had been called previously and she refused transfer. Patient found to be in acute renal failure requiring HD, +UTI, +blood cultures. Medical history from chart, ROS unobtainable HTN, hyperlipidemia, depression Review of Systems - Review of Systems Systems not reviewed;Unavailable: Altered Mental Status, Intubated Past Patient History - Past Medical History & Family History Past Medical History?: Yes - Past Social History Smoking Status: Unknown If Ever Smoked - CARDIAC Hx Hypertension: Yes - MUSCULOSKELETAL/RHEUMATOLOGICAL Hx Falls: No - PSYCHIATRIC Hx Depression: Yes Hx Substance Use: (unknown) - ANESTHESIA Hx Anesthesia: No Hx Anesthesia Reactions: No Hx Malignant Hyperthermia: No Has any member of the family had a problem w/ anesthesia?: No Meds Allergies/Adverse Reactions: Allergies Allergy/AdvReac Type Severity Reaction Status Date / Time No Known Allergies Allergy Verified 07/31/18 15:33 - Medications Medications: Current Medications Albuterol/Ipratropium (Duoneb 3 Mg/0.5 Mg (3 Ml) Ud) 3 ml INH RQ6 [facility] Last Admin: 08/03/18 08:05 Dose: 3 ml Bacitracin (Bacitracin) 1 ea TOP BID JOSE Stop: 08/07/18 20:01 Last Admin: 08/02/18 17:41 Dose: 1 ea Calcium Acetate (Phoslo) 2,001 mg PO TIDCC [facility] Last Admin: 08/02/18 17:42 Dose: 2,001 mg Epoetin Morales (Procrit) 10,000 unit IV TTS [facility] Last Admin: 08/02/18 17:57 Dose: 10,000 unit Ergocalciferol (Drisdol 50,000 Intl Units Cap) 1 cap PO Q7D [facility] Last Admin: 08/02/18 14:42 Dose: 1 cap Ferrous Gluconate (Fergon) 324 mg PO TID [facility] Last Admin: 08/02/18 17:41 Dose: 324 mg Heparin Sodium (Porcine) (Heparin) 5,000 units SC Q8 [facility] Last Admin: 08/03/18 05:38 Dose: 5,000 units Sodium Chloride (Sodium Chloride 0.9%) 1,000 mls @ 50 mls/hr IV .Q20H [facility] Last Admin: 08/03/18 03:36 Dose: 50 mls/hr Piperacillin Sod/Tazobactam Sod (Zosyn 2.25 Gm Iv Premix) 2.25 gm in 50 mls @ 100 mls/hr IVPB Q6H JOSE; Protocol Last Admin: 08/03/18 05:42 Dose: 100 mls/hr Lorazepam (Ativan) 0.5 mg IVP Q6 PRN PRN Reason: Agitation Last Admin: 08/03/18 03:25 Dose: 0.5 mg Methylprednisolone (Solu-Medrol) 40 mg IVP Q12H [facility] Last Admin: 08/02/18 21:26 Dose: 40 mg Pantoprazole Sodium (Protonix Susp) 40 mg PO 0600 [facility] Last Admin: 08/03/18 05:38 Dose: 40 mg Vitamin B Complex/Vit C/Folic Acid (Nephro-Fortino) 1 tab PO 0800 [facility] Physical Exam - Constitutional Appears: Agitated - Head Exam Head Exam: ATRAUMATIC - Extremities Exam Additional comments: patient follows commands to move fingers and wrist RUE and nods yes when asked about sensation to hand when asked if she had pain when palpating fracture, she does not respond when asked if she knows her arm is broken, again no response - Expanded Upper Extremities Exam Right Neuro motor exam: finger 2-5 abduction intact, thumb opposition intact, wrist extension intact Neurosensory exam: 2-poit discrimination, median nerve intact, radial nerve intact Vascular exam: radial pulse - Skin Skin Exam: Dry, Intact, Normal Color, Warm Additional comments: no gross ecchymosis to right arm Results - Vital Signs Recent Vital Signs: Last Vital Signs Temp 98.2 F 08/03/18 04:00 Pulse 97 H 08/03/18 07:00 Resp 15 08/03/18 07:00 BP 168/87 H 08/03/18 06:47 Pulse Ox 98 08/03/18 07:00 - Labs Result Diagrams: 08/03/18 06:18 08/03/18 06:20 Labs: Laboratory Results - last 24 hr 07/31/18 08/02/18 08/02/18 20:57 05:48 05:49 WBC RBC Hgb Hct MCV MCH MCHC RDW Plt Count MPV Neut % (Auto) Lymph % (Auto) [place] % (Auto) Eos % (Auto) Baso % (Auto) Neut # (Auto) Lymph # (Auto) [place] # (Auto) Eos # (Auto) Baso # (Auto) Neutrophils % (Manual) 77 H Band Neutrophils % 17 H* Lymphocytes % (Manual) 3 L Monocytes % (Manual) 3 Platelet Estimate Normal Polychromasia Slight Hypochromasia (manual) Slight Puncture Site pCO2 pO2 HCO3 ABG pH ABG Total CO2 ABG O2 Saturation ABG Base Excess ABG Hemoglobin ABG Carboxyhemoglobin POC ABG HHb (Measured) ABG Methemoglobin Yoan Test A-a O2 Difference Respiratory Index Hgb O2 Saturation Vent Mode Mechanical Rate FiO2 Tidal Volume PEEP Sodium Potassium Chloride Carbon Dioxide Anion Gap BUN Creatinine Est GFR ( Amer) Est GFR (Non-Af Amer) POC Glucose (mg/dL) Random Glucose Calcium Phosphorus Magnesium Total Bilirubin AST ALT Alkaline Phosphatase Total Protein Total Protein (PEP) 5.3 L Albumin Globulin Albumin/Globulin Ratio Triglycerides Cholesterol LDL Cholesterol Direct HDL Cholesterol TSH 3rd Generation PTH Intact Whole Molec 268 H 08/02/18 08/03/18 08/03/18 17:53 04:15 06:18 WBC 15.6 H RBC 2.29 L Hgb 7.2 L Hct 21.1 L MCV 91.9 MCH 31.6 H MCHC 34.3 RDW 14.5 Plt Count 178 MPV 8.6 Neut % (Auto) 93.5 H Lymph % (Auto) 3.5 L [place] % (Auto) 2.7 Eos % (Auto) 0.0 Baso % (Auto) 0.3 Neut # (Auto) 14.6 H Lymph # (Auto) 0.5 L [place] # (Auto) 0.4 Eos # (Auto) 0.0 Baso # (Auto) 0.0 Neutrophils % (Manual) Band Neutrophils % Lymphocytes % (Manual) Monocytes % (Manual) Platelet Estimate Polychromasia Hypochromasia (manual) Puncture Site Lb pCO2 31 L pO2 203 H HCO3 23.9 ABG pH 7.46 H ABG Total CO2 23.0 ABG O2 Saturation 99.4 H ABG Base Excess -1.3 ABG Hemoglobin 9.6 L ABG Carboxyhemoglobin 1.1 POC ABG HHb (Measured) 0.6 ABG Methemoglobin 0.7 Yoan Test Na A-a O2 Difference 115.0 Respiratory Index 0.6 Hgb O2 Saturation 97.5 Vent Mode Prvc Mechanical Rate 20 FiO2 50.0 Tidal Volume 450 PEEP 5 Sodium Potassium Chloride Carbon Dioxide Anion Gap BUN Creatinine Est GFR ( Amer) Est GFR (Non-Af Amer) POC Glucose (mg/dL) 128 H Random Glucose Calcium Phosphorus Magnesium Total Bilirubin AST ALT Alkaline Phosphatase Total Protein Total Protein (PEP) Albumin Globulin Albumin/Globulin Ratio Triglycerides Cholesterol LDL Cholesterol Direct HDL Cholesterol TSH 3rd Generation PTH Intact Whole Molec 08/03/18 08/03/18 06:20 06:20 WBC RBC Hgb Hct MCV MCH MCHC RDW Plt Count MPV Neut % (Auto) Lymph % (Auto) [place] % (Auto) Eos % (Auto) Baso % (Auto) Neut # (Auto) Lymph # (Auto) [place] # (Auto) Eos # (Auto) Baso # (Auto) Neutrophils % (Manual) Band Neutrophils % Lymphocytes % (Manual) Monocytes % (Manual) Platelet Estimate Polychromasia Hypochromasia (manual) Puncture Site pCO2 pO2 HCO3 ABG pH ABG Total CO2 ABG O2 Saturation ABG Base Excess ABG Hemoglobin ABG Carboxyhemoglobin POC ABG HHb (Measured) ABG Methemoglobin Yoan Test A-a O2 Difference Respiratory Index Hgb O2 Saturation Vent Mode Mechanical Rate FiO2 Tidal Volume PEEP Sodium 146 Potassium 3.4 L Chloride 108 H Carbon Dioxide 21 L Anion Gap 20 BUN 44 H Creatinine 3.9 H Est GFR ( Amer) 14 Est GFR (Non-Af Amer) 12 POC Glucose (mg/dL) Random Glucose 176 H Calcium 8.5 L Phosphorus 2.0 L Magnesium 1.9 Total Bilirubin 0.5 AST 31 ALT 38 Alkaline Phosphatase 51 Total Protein 5.9 L Total Protein (PEP) Albumin 2.9 L Globulin 3.0 Albumin/Globulin Ratio 1.0 Triglycerides 164 H Cholesterol 109 LDL Cholesterol Direct 62 HDL Cholesterol 29 L TSH 3rd Generation 1.33 PTH Intact Whole Molec - Impressions Impression: Right humerus AP/lat xrays: show proximal humeral shaft fracture with comminution. Displaced. Unclear chronicity, unclear if pathological. Assessment & Plan (1) Closed fracture of right proximal humerus Assessment and Plan: right displaced proximal humeral shaft fracture seen on admission CXR 07/31 f/u official reading unclear chronicity, unclear if pathological in nature need CT of right humerus when patient stable/extubated sling for now banks brace ordered as per Dr. Becker no surgery planned at this time, will attempt conservative mgmt as per Dr. Becker, patient septic and medically unstable will follow, need more history d/w Dr. Becker, agrees withalex perez Status: Acute
[2018-08-03 08:42] LABS: ANISOCYTOSIS SLIGHT; HYPOCHROMIC SLIGHT; LYMPHOCYTE 2 % (20-40); MONOCYTE 1 % (0-10); NEUTROPHIL 97 % (50-75); NUCLEATED RED BLOOD CELL 1 % (0-0); PLATELET ESTIMATE NORMAL (NORMAL); TOTAL CELLS COUNTED 100
[2018-08-03 08:43] LABS: POLYCHROMIC SLIGHT
--- NOTE | 2018-08-03 09:16 | RAD ---
Date of service: 08/03/2018 HISTORY: vent COMPARISON: 08/02/2018 FINDINGS: LUNGS: No infiltrate. PLEURA: Possible very small left pleural effusion. No right pleural effusion. No pneumothorax. CARDIOVASCULAR: Normal heart size. ET tube and NG tube unchanged. OSSEOUS STRUCTURES: No significant abnormalities. VISUALIZED UPPER ABDOMEN: Normal. OTHER FINDINGS: None. IMPRESSION: Possible very small left pleural effusion.
--- NOTE | 2018-08-03 09:30 | RAD ---
PROCEDURE: Radiographs of the right humerus. HISTORY: r/o fracture COMPARISON: None. FINDINGS: BONES: Comminuted angulated proximal right humeral diaphysis fracture. Displaced large fragment. Overriding of the major fragments. SOFT TISSUES: Normal. OTHER FINDINGS: None. IMPRESSION: Comminuted displaced angulated proximal humeral diaphysis fracture.
[2018-08-03] MEDS: MethylPREDNISolone 40 mg Vial IVP SCH ×2 (10:11→21:26)
[2018-08-03] MEDS: Bacitracin 500 Units/gm Oint Foilpak UD TOP SCH ×2 (10:11→17:09)
[2018-08-03] MEDS: Multivitamin Vitamin B Complex (Nephro-Vite) Tab PO SCH ×2 (10:11→17:13)
[2018-08-03 10:24] LABS: ALBUMIN (PEP) 2.5 g/dL (3.8-4.8); ALPHA-1-GLOBULIN (PEP) 0.5 g/dL (0.2-0.3)
[2018-08-03 13:00] LABS: ABG ALLEN TEST PO; ARTERIAL BLOOD GAS HCO3 24.6 mmol/L (21-28); ARTERIAL BLOOD GAS HEMOGLOBIN 5.5 g/dL (11.7-17.4); ARTERIAL BLOOD GAS O2 SAT 99.8 % (95-98); ARTERIAL BLOOD GAS PCO2 30 mm/Hg (35-45); ARTERIAL BLOOD GAS PH 7.49 (7.35-7.45); ARTERIAL BLOOD GAS PO2 135 mm/Hg (80-100); ARTERIAL BLOOD GAS TCO2 23.8 mmol/L (22-28)
[2018-08-03 14:07] LABS: HEMOGLOBIN 6.9 g/dL (11.0-16.0); MEAN CELL VOLUME 92.7 fL (81.0-99.0); MEAN CORPUSCULAR HEMOGLOBIN 31.3 pg (27.0-31.0); MEAN CORPUSCULAR HGB CONC 33.7 g/dL (33.0-37.0); MEAN PLATELET VOLUME 8.4 fL (7.2-11.7); RBC 2.2 Mil/uL (3.80-5.20); RED CELL DISTRIBUTION WIDTH 14.7 % (11.5-14.5); WHITE BLOOD COUNT 16.8 K/uL (4.8-10.8)
--- NOTE | 2018-08-03 14:10 | CP.CCUPN ---
<Orestes Hernandez - Last Filed: 08/03/18 13:52> CCU Subjective - Physician Review Subjective (Free Text): Pt seen and examined at bedside. pt unable to provide a ROS. to get 2nd round of HD today as pt has still been fluid pos. Montior CR 08/03/18 13:52 08/03/18 13:52 CCU Objective - Vital Signs / Intake & Output Vital Signs (Last 4 hours): Vital Signs Temp Pulse Resp BP Pulse Ox 08/03/18 12:00 98.0 F 79 16 98 08/03/18 11:47 104 H 22 161/98 H 96 08/03/18 11:00 79 16 100 08/03/18 10:47 78 17 159/86 H 98 08/03/18 10:00 93 H 17 99 Intake and Output (Last 8hrs): Intake & Output 08/02/18 08/03/18 08/03/18 22:59 06:59 14:59 Intake Total 770 815 500 Output Total 100 100 230 Balance 670 715 270 Weight 160 lb Intake: Intake, IV Amount 400 425 200 Right Antecubital 400 425 200 Tube Feeding 270 390 300 Other 100 Output: Urine 100 100 230 Urethral (White) 100 100 230 Other: # Bowel Movements 1 1 - Physical Exam Head: Positive for: Atraumatic, Normocephalic Pupils: Positive for: PERRL Extroacular Muscles: Positive for: EOMI Mouth: Positive for: Moist Mucous Membranes Pharnyx: Positive for: Uvular Deviation Nose (Internal): Positive for: No Active Bleeding Upper Extremity: Positive for: Tenderness (RUE), Other (mid humerus shaft crepitus w/ passive ROM ) Lower Extremity: Positive for: Normal Inspection Neurological: Positive for: CN II-XII Intact Skin: Positive for: Warm, Dry Psychiatric: Positive for: Oriented x 3 - Medications Active Medications: Active Medications Generic Name Dose Route Start Last Admin Trade Name Freq PRN Reason Stop Dose Admin Albuterol/Ipratropium 3 ml 08/01/18 02:00 08/03/18 13:14 Duoneb 3 Mg/0.5 Mg (3 Ml) Ud INH 3 ml RQ6 JOSE Administration Bacitracin 1 ea 07/31/18 20:00 08/03/18 10:11 Bacitracin TOP 08/07/18 20:01 1 ea BID JOSE Administration Calcium Acetate 667 mg 08/03/18 12:00 Phoslo PO TIDCC OJSE Epoetin Morales 10,000 unit 08/02/18 13:00 08/02/18 17:57 Procrit IV 10,000 unit TTS JOSE Administration Ergocalciferol 1 cap 08/02/18 14:15 08/02/18 14:42 Drisdol 50,000 Intl Units Cap PO 1 cap Q7D JOSE Administration Ferrous Gluconate 324 mg 08/02/18 14:00 08/03/18 10:11 Fergon PO 324 mg TID JOSE Administration Heparin Sodium (Porcine) 5,000 units 07/31/18 22:00 08/03/18 05:38 Heparin SC 5,000 units Q8 JOSE Administration Piperacillin Sod/Tazobactam Sod 2.25 gm in 50 mls @ 100 mls/hr 08/02/18 12:00 08/03/18 05:42 Zosyn 2.25 Gm Iv Premix IVPB 100 mls/hr Q6H JOSE Administration Protocol Lorazepam 0.5 mg 08/02/18 08:06 08/03/18 10:11 Ativan IVP 0.5 mg Q6 PRN Administration Agitation Methylprednisolone 40 mg 08/01/18 10:00 08/03/18 10:11 Solu-Medrol IVP 40 mg Q12H JOSE Administration Pantoprazole Sodium 40 mg 08/01/18 06:00 08/03/18 05:38 Protonix Susp PO 40 mg 0600 JOSE Administration Vitamin B Complex/Vit C/Folic Acid 1 tab 08/03/18 08:00 08/03/18 10:11 Nephro-Ofrtino PO 1 tab 0800 JOSE Administration - Patient Studies Lab Studies: Microbiology Studies 07/31/18 15:20 S.aureus & Coag-Neg Staph PNA FISH - Final Blood Blood Culture - Preliminary Gram Positive Cocci Gram Stain - Final 07/31/18 16:00 Blood Culture - Preliminary Blood NO GROWTH AFTER 48 HOURS 07/31/18 16:00 Urine Culture - Final Urine,Catheterized Escherichia Coli Lab Studies 08/03/18 08/03/18 08/03/18 Range/Units 12:55 06:20 06:20 WBC (4.8-10.8) K/uL RBC (3.80-5.20) Mil/uL Hgb (11.0-16.0) g/dL Hct (34.0-47.0) % MCV (81.0-99.0) fL MCH (27.0-31.0) pg MCHC (33.0-37.0) g/dL RDW (11.5-14.5) % Plt Count (130-400) K/uL MPV (7.2-11.7) fL Neut % (Auto) (50.0-75.0) % Lymph % (Auto) (20.0-40.0) % [place] % (Auto) (0.0-10.0) % Eos % (Auto) (0.0-4.0) % Baso % (Auto) (0.0-2.0) % Neut # (Auto) (1.8-7.0) K/uL Lymph # (Auto) (1.0-4.3) K/uL [place] # (Auto) (0.0-0.8) K/uL Eos # (Auto) (0.0-0.7) K/uL Baso # (Auto) (0.0-0.2) K/uL Neutrophils % (Manual) (50-75) % Lymphocytes % (Manual) (20-40) % Monocytes % (Manual) (0-10) % Nucleated RBC % (0-0) % Platelet Estimate (NORMAL) Polychromasia Hypochromasia (manual) Anisocytosis (manual) Puncture Site Rra pCO2 30 L (35-45) mm/Hg pO2 135 H (80-100) mm/Hg HCO3 24.6 (21-28) mmol/L ABG pH 7.49 H (7.35-7.45) ABG Total CO2 23.8 (22-28) mmol/L ABG O2 Saturation 99.8 H (95-98) % ABG Base Excess -0.5 (-2.0-3.0) mmol/L ABG Hemoglobin 5.5 L (11.7-17.4) g/dL ABG Carboxyhemoglobin 1.7 H (0.5-1.5) % POC ABG HHb (Measured) 0.2 (0.0-5.0) % ABG Methemoglobin 0.4 (0.0-3.0) % Yoan Test Po A-a O2 Difference 113.0 mm/Hg Respiratory Index 0.8 Hgb O2 Saturation 97.8 (95.0-98.0) % Vent Mode Cpap Mechanical Rate FiO2 40.0 % Tidal Volume PEEP Pressure Support 10 CPAP 5 Crit Value Called To Crit Value Called By Omar rodríguez,solar manager Crit Value Read Back Y Blood Gas Notified Time 1300 Sodium 146 (132-148) mmol/L Potassium 3.4 L (3.6-5.2) mmol/L Chloride 108 H (98-107) mmol/L Carbon Dioxide 21 L (22-30) mmol/L Anion Gap 20 (10-20) BUN 44 H (7-17) mg/dL Creatinine 3.9 H (0.7-1.2) mg/dL Est GFR ( Amer) 14 Est GFR (Non-Af Amer) 12 POC Glucose (mg/dL) (65-110) mg/dL Random Glucose 176 H (65-105) mg/dL Calcium 8.5 L (8.6-10.4) mg/dl Phosphorus 2.0 L (2.5-4.5) mg/dL Magnesium 1.9 (1.6-2.3) mg/dL Total Bilirubin 0.5 (0.2-1.3) mg/dL AST 31 (14-36) U/L ALT 38 (9-52) U/L Alkaline Phosphatase 51 (38-126) U/L Total Protein 5.9 L (6.3-8.3) g/dL Total Protein (PEP) (6.1-8.1) g/dL Albumin 2.9 L (3.5-5.0) g/dL Albumin (PEP) (3.8-4.8) g/dL Globulin 3.0 (2.2-3.9) gm/dL Albumin/Globulin Ratio 1.0 (1.0-2.1) Khpqi-8-Oohiivrxr (0.2-0.3) g/dL Ebljz-4-Gnqcnaohf (0.5-0.9) g/dL Llvc-2-Pysobohi (0.4-0.6) g/dL Ktrc-8-Snxofnyv (0.2-0.5) g/dL Gamma Globulins (0.8-1.7) g/dL Abnorm Protein Band 1 Abnorm Protein Band 2 Abnorm Protein Band 3 Triglycerides 164 H (0-149) mg/dL Cholesterol 109 (0-199) mg/dL LDL Cholesterol Direct 62 (0-129) mg/dL HDL Cholesterol 29 L (30-70) mg/dL TSH 3rd Generation 1.33 (0.46-4.68) mIU/L PTH Intact Whole Molec (14-64) pg/mL BEAR & SPEP Interp 08/03/18 08/03/18 08/02/18 Range/Units 06:18 04:15 17:53 WBC 15.6 H (4.8-10.8) K/uL RBC 2.29 L (3.80-5.20) Mil/uL Hgb 7.2 L (11.0-16.0) g/dL Hct 21.1 L (34.0-47.0) % MCV 91.9 (81.0-99.0) fL MCH 31.6 H (27.0-31.0) pg MCHC 34.3 (33.0-37.0) g/dL RDW 14.5 (11.5-14.5) % Plt Count 178 (130-400) K/uL MPV 8.6 (7.2-11.7) fL Neut % (Auto) 93.5 H (50.0-75.0) % Lymph % (Auto) 3.5 L (20.0-40.0) % [place] % (Auto) 2.7 (0.0-10.0) % Eos % (Auto) 0.0 (0.0-4.0) % Baso % (Auto) 0.3 (0.0-2.0) % Neut # (Auto) 14.6 H (1.8-7.0) K/uL Lymph # (Auto) 0.5 L (1.0-4.3) K/uL [place] # (Auto) 0.4 (0.0-0.8) K/uL Eos # (Auto) 0.0 (0.0-0.7) K/uL Baso # (Auto) 0.0 (0.0-0.2) K/uL Neutrophils % (Manual) 97 H (50-75) % Lymphocytes % (Manual) 2 L (20-40) % Monocytes % (Manual) 1 (0-10) % Nucleated RBC % 1 H (0-0) % Platelet Estimate Normal (NORMAL) Polychromasia Slight Hypochromasia (manual) Slight Anisocytosis (manual) Slight Puncture Site Lb pCO2 31 L (35-45) mm/Hg pO2 203 H (80-100) mm/Hg HCO3 23.9 (21-28) mmol/L ABG pH 7.46 H (7.35-7.45) ABG Total CO2 23.0 (22-28) mmol/L ABG O2 Saturation 99.4 H (95-98) % ABG Base Excess -1.3 (-2.0-3.0) mmol/L ABG Hemoglobin 9.6 L (11.7-17.4) g/dL ABG Carboxyhemoglobin 1.1 (0.5-1.5) % POC ABG HHb (Measured) 0.6 (0.0-5.0) % ABG Methemoglobin 0.7 (0.0-3.0) % Yoan Test Na A-a O2 Difference 115.0 mm/Hg Respiratory Index 0.6 Hgb O2 Saturation 97.5 (95.0-98.0) % Vent Mode Prvc Mechanical Rate 20 FiO2 50.0 % Tidal Volume 450 PEEP 5 Pressure Support CPAP Crit Value Called To Crit Value Called By Crit Value Read Back Blood Gas Notified Time Sodium (132-148) mmol/L Potassium (3.6-5.2) mmol/L Chloride (98-107) mmol/L Carbon Dioxide (22-30) mmol/L Anion Gap (10-20) BUN (7-17) mg/dL Creatinine (0.7-1.2) mg/dL Est GFR ( Amer) Est GFR (Non-Af Amer) POC Glucose (mg/dL) 128 H (65-110) mg/dL Random Glucose (65-105) mg/dL Calcium (8.6-10.4) mg/dl Phosphorus (2.5-4.5) mg/dL Magnesium (1.6-2.3) mg/dL Total Bilirubin (0.2-1.3) mg/dL AST (14-36) U/L ALT (9-52) U/L Alkaline Phosphatase (38-126) U/L Total Protein (6.3-8.3) g/dL Total Protein (PEP) (6.1-8.1) g/dL Albumin (3.5-5.0) g/dL Albumin (PEP) (3.8-4.8) g/dL Globulin (2.2-3.9) gm/dL Albumin/Globulin Ratio (1.0-2.1) Mndjx-3-Cmrisozjf (0.2-0.3) g/dL Dbcoe-3-Vubiianai (0.5-0.9) g/dL Gqww-5-Gbgrhrrc (0.4-0.6) g/dL Knvg-0-Dofofsjx (0.2-0.5) g/dL Gamma Globulins (0.8-1.7) g/dL Abnorm Protein Band 1 Abnorm Protein Band 2 Abnorm Protein Band 3 Triglycerides (0-149) mg/dL Cholesterol (0-199) mg/dL LDL Cholesterol Direct (0-129) mg/dL HDL Cholesterol (30-70) mg/dL TSH 3rd Generation (0.46-4.68) mIU/L PTH Intact Whole Molec (14-64) pg/mL BEAR & SPEP Interp 08/02/18 07/31/18 Range/Units 05:49 20:57 WBC (4.8-10.8) K/uL RBC (3.80-5.20) Mil/uL Hgb (11.0-16.0) g/dL Hct (34.0-47.0) % MCV (81.0-99.0) fL MCH (27.0-31.0) pg MCHC (33.0-37.0) g/dL RDW (11.5-14.5) % Plt Count (130-400) K/uL MPV (7.2-11.7) fL Neut % (Auto) (50.0-75.0) % Lymph % (Auto) (20.0-40.0) % [place] % (Auto) (0.0-10.0) % Eos % (Auto) (0.0-4.0) % Baso % (Auto) (0.0-2.0) % Neut # (Auto) (1.8-7.0) K/uL Lymph # (Auto) (1.0-4.3) K/uL [place] # (Auto) (0.0-0.8) K/uL Eos # (Auto) (0.0-0.7) K/uL Baso # (Auto) (0.0-0.2) K/uL Neutrophils % (Manual) (50-75) % Lymphocytes % (Manual) (20-40) % Monocytes % (Manual) (0-10) % Nucleated RBC % (0-0) % Platelet Estimate (NORMAL) Polychromasia Hypochromasia (manual) Anisocytosis (manual) Puncture Site pCO2 (35-45) mm/Hg pO2 (80-100) mm/Hg HCO3 (21-28) mmol/L ABG pH (7.35-7.45) ABG Total CO2 (22-28) mmol/L ABG O2 Saturation (95-98) % ABG Base Excess (-2.0-3.0) mmol/L ABG Hemoglobin (11.7-17.4) g/dL ABG Carboxyhemoglobin (0.5-1.5) % POC ABG HHb (Measured) (0.0-5.0) % ABG Methemoglobin (0.0-3.0) % Yoan Test A-a O2 Difference mm/Hg Respiratory Index Hgb O2 Saturation (95.0-98.0) % Vent Mode Mechanical Rate FiO2 % Tidal Volume PEEP Pressure Support CPAP Crit Value Called To Crit Value Called By Crit Value Read Back Blood Gas Notified Time Sodium (132-148) mmol/L Potassium (3.6-5.2) mmol/L Chloride (98-107) mmol/L Carbon Dioxide (22-30) mmol/L Anion Gap (10-20) BUN (7-17) mg/dL Creatinine (0.7-1.2) mg/dL Est GFR ( Amer) Est GFR (Non-Af Amer) POC Glucose (mg/dL) (65-110) mg/dL Random Glucose (65-105) mg/dL Calcium (8.6-10.4) mg/dl Phosphorus (2.5-4.5) mg/dL Magnesium (1.6-2.3) mg/dL Total Bilirubin (0.2-1.3) mg/dL AST (14-36) U/L ALT (9-52) U/L Alkaline Phosphatase (38-126) U/L Total Protein (6.3-8.3) g/dL Total Protein (PEP) 5.3 L (6.1-8.1) g/dL Albumin (3.5-5.0) g/dL Albumin (PEP) 2.5 L (3.8-4.8) g/dL Globulin (2.2-3.9) gm/dL Albumin/Globulin Ratio (1.0-2.1) Efjnx-8-Hdxkhdqow 0.5 H (0.2-0.3) g/dL Vqqbh-5-Iadheqxxe 0.8 (0.5-0.9) g/dL Fidc-3-Wxyevhbd 0.2 L (0.4-0.6) g/dL Mfur-8-Yblhvqye 0.3 (0.2-0.5) g/dL Gamma Globulins 0.9 (0.8-1.7) g/dL Abnorm Protein Band 1 TEST NOT PERFORMED Abnorm Protein Band 2 TEST NOT PERFORMED Abnorm Protein Band 3 TEST NOT PERFORMED Triglycerides (0-149) mg/dL Cholesterol (0-199) mg/dL LDL Cholesterol Direct (0-129) mg/dL HDL Cholesterol (30-70) mg/dL TSH 3rd Generation (0.46-4.68) mIU/L PTH Intact Whole Molec 268 H (14-64) pg/mL BEAR & SPEP Interp See note Laboratory Results - last 24 hr 07/31/18 08/02/18 08/02/18 20:57 05:49 17:53 WBC RBC Hgb Hct MCV MCH MCHC RDW Plt Count MPV Neut % (Auto) Lymph % (Auto) [place] % (Auto) Eos % (Auto) Baso % (Auto) Neut # (Auto) Lymph # (Auto) [place] # (Auto) Eos # (Auto) Baso # (Auto) Neutrophils % (Manual) Lymphocytes % (Manual) Monocytes % (Manual) Nucleated RBC % Platelet Estimate Polychromasia Hypochromasia (manual) Anisocytosis (manual) Puncture Site pCO2 pO2 HCO3 ABG pH ABG Total CO2 ABG O2 Saturation ABG Base Excess ABG Hemoglobin ABG Carboxyhemoglobin POC ABG HHb (Measured) ABG Methemoglobin Yoan Test A-a O2 Difference Respiratory Index Hgb O2 Saturation Vent Mode Mechanical Rate FiO2 Tidal Volume PEEP Pressure Support CPAP Crit Value Called To Crit Value Called By Crit Value Read Back Blood Gas Notified Time Sodium Potassium Chloride Carbon Dioxide Anion Gap BUN Creatinine Est GFR ( Amer) Est GFR (Non-Af Amer) POC Glucose (mg/dL) 128 H Random Glucose Calcium Phosphorus Magnesium Total Bilirubin AST ALT Alkaline Phosphatase Total Protein Total Protein (PEP) 5.3 L Albumin Albumin (PEP) 2.5 L Globulin Albumin/Globulin Ratio Vwtlj-5-Ukkrzpjpe 0.5 H Saysh-5-Bmcsqjjrx 0.8 Ebsi-7-Llkpcgbc 0.2 L Dumg-1-Vcztggwn 0.3 Gamma Globulins 0.9 Abnorm Protein Band 1 TEST NOT PERFORMED Abnorm Protein Band 2 TEST NOT PERFORMED Abnorm Protein Band 3 TEST NOT PERFORMED Triglycerides Cholesterol LDL Cholesterol Direct HDL Cholesterol TSH 3rd Generation PTH Intact Whole Molec 268 H BEAR & SPEP Interp See note 08/03/18 08/03/18 08/03/18 04:15 06:18 06:20 WBC 15.6 H RBC 2.29 L Hgb 7.2 L Hct 21.1 L MCV 91.9 MCH 31.6 H MCHC 34.3 RDW 14.5 Plt Count 178 MPV 8.6 Neut % (Auto) 93.5 H Lymph % (Auto) 3.5 L [place] % (Auto) 2.7 Eos % (Auto) 0.0 Baso % (Auto) 0.3 Neut # (Auto) 14.6 H Lymph # (Auto) 0.5 L [place] # (Auto) 0.4 Eos # (Auto) 0.0 Baso # (Auto) 0.0 Neutrophils % (Manual) 97 H Lymphocytes % (Manual) 2 L Monocytes % (Manual) 1 Nucleated RBC % 1 H Platelet Estimate Normal Polychromasia Slight Hypochromasia (manual) Slight Anisocytosis (manual) Slight Puncture Site Lb pCO2 31 L pO2 203 H HCO3 23.9 ABG pH 7.46 H ABG Total CO2 23.0 ABG O2 Saturation 99.4 H ABG Base Excess -1.3 ABG Hemoglobin 9.6 L ABG Carboxyhemoglobin 1.1 POC ABG HHb (Measured) 0.6 ABG Methemoglobin 0.7 Yoan Test Na A-a O2 Difference 115.0 Respiratory Index 0.6 Hgb O2 Saturation 97.5 Vent Mode Prvc Mechanical Rate 20 FiO2 50.0 Tidal Volume 450 PEEP 5 Pressure Support CPAP Crit Value Called To Crit Value Called By Crit Value Read Back Blood Gas Notified Time Sodium Potassium Chloride Carbon Dioxide Anion Gap BUN Creatinine Est GFR ( Amer) Est GFR (Non-Af Amer) POC Glucose (mg/dL) Random Glucose Calcium Phosphorus Magnesium Total Bilirubin AST ALT Alkaline Phosphatase Total Protein Total Protein (PEP) Albumin Albumin (PEP) Globulin Albumin/Globulin Ratio Qgwpw-7-Zcqwifzew Tqbfj-1-Ouhgchsvl Cnnt-8-Ggpqonxb Ujrh-6-Epxdhpmm Gamma Globulins Abnorm Protein Band 1 Abnorm Protein Band 2 Abnorm Protein Band 3 Triglycerides 164 H Cholesterol 109 LDL Cholesterol Direct 62 HDL Cholesterol 29 L TSH 3rd Generation 1.33 PTH Intact Whole Molec BEAR & SPEP Interp 08/03/18 08/03/18 06:20 12:55 WBC RBC Hgb Hct MCV MCH MCHC RDW Plt Count MPV Neut % (Auto) Lymph % (Auto) [place] % (Auto) Eos % (Auto) Baso % (Auto) Neut # (Auto) Lymph # (Auto) [place] # (Auto) Eos # (Auto) Baso # (Auto) Neutrophils % (Manual) Lymphocytes % (Manual) Monocytes % (Manual) Nucleated RBC % Platelet Estimate Polychromasia Hypochromasia (manual) Anisocytosis (manual) Puncture Site Rra pCO2 30 L pO2 135 H HCO3 24.6 ABG pH 7.49 H ABG Total CO2 23.8 ABG O2 Saturation 99.8 H ABG Base Excess -0.5 ABG Hemoglobin 5.5 L ABG Carboxyhemoglobin 1.7 H POC ABG HHb (Measured) 0.2 ABG Methemoglobin 0.4 Yoan Test Po A-a O2 Difference 113.0 Respiratory Index 0.8 Hgb O2 Saturation 97.8 Vent Mode Cpap Mechanical Rate FiO2 40.0 Tidal Volume PEEP Pressure Support 10 CPAP 5 Crit Value Called To Crit Value Called By Omar rodríguez,solar manager Crit Value Read Back Y Blood Gas Notified Time 1300 Sodium 146 Potassium 3.4 L Chloride 108 H Carbon Dioxide 21 L Anion Gap 20 BUN 44 H Creatinine 3.9 H Est GFR ( Amer) 14 Est GFR (Non-Af Amer) 12 POC Glucose (mg/dL) Random Glucose 176 H Calcium 8.5 L Phosphorus 2.0 L Magnesium 1.9 Total Bilirubin 0.5 AST 31 ALT 38 Alkaline Phosphatase 51 Total Protein 5.9 L Total Protein (PEP) Albumin 2.9 L Albumin (PEP) Globulin 3.0 Albumin/Globulin Ratio 1.0 Fiebe-8-Zyxtyryfb Pvjvz-9-Qlqcvofsh Wnsp-1-Mlrufzix Oebb-8-Aqywqtzb Gamma Globulins Abnorm Protein Band 1 Abnorm Protein Band 2 Abnorm Protein Band 3 Triglycerides Cholesterol LDL Cholesterol Direct HDL Cholesterol TSH 3rd Generation PTH Intact Whole Molec BEAR & SPEP Interp Fingerstick Blood Sugar Results: 101 Review of Systems - Review of Systems Systems not reviewed;Unavailable: Intubated Assessment/Plan - Assessment and Plan (Free Text) Assessment: 62yo F. PMHx HTN, hyperlipidemia, and depression. p/w acute respiratory failure, in acute renal failure in severe metabolic acidosis. s/p shiley cath with Dr Casanova Neuro: -comatose -monitor mental status MSK: Consulting Ortho for R upper ext possible humerus fracture seen on CXR 08/02 UE Xray - right displaced proximal humeral shaft fracture seen on admission CXR 07/31 f/u official reading unclear chronicity, unclear if pathological in nature need CT of right humerus when patient stable/extubated sling for now banks brace ordered as per Dr. Becker no surgery planned at this time, will attempt conservative mgmt as per Dr. Becker, patient septic and medically unstable Pulm: -vent intubated. rate 20 TV 450 PEEP 5 fiO2 100 CV: -hemodynamically stable Hem: -no acute issues Renal: -HAGMA with ROBIN, requiring emergent dialysis. -Dr Triana consulted follow recs: plan for next HD today and then likely tomorrow Maintain hemodynamics stable. Avoid hypotension. Patient not on ACEI/ARB due to recent ROBIN Monitor Input/Output, daily weights and renal function with basic metabolic panel started Fe, MVI, epogen and weekly Vit D PRBC as needed Check urine analysis, spot protein/creatinine, albumin/creatinine ratio. Pending renal sonogram. CPK Check GN work up as C3, C4, LINDSEY, Anti dsDNA, ASO titers, ANCA (MPO and OR-3), Anti GBM antibody, HIV Anemia work up with TSAT/Ferritin/Vitamin B12/folate, serum protein electrophoresis with immunofixation, serum free light chain assay ([place]/ L ambda) Check for 25-OH vitamin D, iPTH, phosphorus level. Endo: -no acute issues -montitor Glucose GI: -tube feeds ID: -empiric therapy with Zosyn. source of sepsis, if there is one, is uncertain. groin wound pos for Gram pos cocci aerobic -possible Cimex mite infection (bed bugs) -staph a (wound) and e coli (urine) pos cultures DVT proph - heparin sq GI proph - protonix white for strict I/O's during acute illness Code status - full code <Prasanna Martínez S - Last Filed: 08/03/18 18:57> CCU Subjective - Physician Review Critical Care Time Spent (in minutes): 45 CCU Objective - Vital Signs / Intake & Output Vital Signs (Last 4 hours): Vital Signs Temp Pulse Resp BP 08/03/18 17:00 99.1 F 74 16 156/64 H 08/03/18 16:45 98.1 F 89 16 163/74 H 08/03/18 16:30 98 F 90 22 177/58 H Intake and Output (Last 8hrs): Intake & Output 08/03/18 08/03/18 08/03/18 06:59 14:59 22:59 Intake Total 815 500 0 Output Total 100 230 Balance 715 270 0 Weight 160 lb Intake: Intake, IV Amount 425 200 Right Antecubital 425 200 Tube Feeding 390 300 Blood Product 0 Apheresis Rbc Cp2d As3 Lr 0 2nd Unit [id number] Output: Urine 100 230 Urethral (White) 100 230 Other: # Bowel Movements 1 - Medications Active Medications: Active Medications Generic Name Dose Route Start Last Admin Trade Name Timothyq PRN Reason Stop Dose Admin Albuterol/Ipratropium 3 ml 08/01/18 02:00 08/03/18 13:14 Duoneb 3 Mg/0.5 Mg (3 Ml) Ud INH 3 ml RQ6 JOSE Administration Bacitracin 1 ea 07/31/18 20:00 08/03/18 17:09 Bacitracin TOP 08/07/18 20:01 1 ea BID JOSE Administration Calcium Acetate 667 mg 08/03/18 12:00 08/03/18 17:11 Phoslo PO 667 mg TIDCC JOSE Administration Epoetin Morales 10,000 unit 08/02/18 13:00 08/02/18 17:57 Procrit IV 10,000 unit TTS JOSE Administration Ergocalciferol 1 cap 08/02/18 14:15 08/02/18 14:42 Drisdol 50,000 Intl Units Cap PO 1 cap Q7D JOSE Administration Ferrous Gluconate 324 mg 08/02/18 14:00 08/03/18 17:13 Fergon PO 324 mg TID JOSE Administration Heparin Sodium (Porcine) 5,000 units 07/31/18 22:00 08/03/18 14:11 Heparin SC 5,000 units Q8 JOSE Administration Meropenem 500 mg/ Sodium 100 mls @ 100 mls/hr 08/04/18 02:00 Chloride IVPB Q8H [facility] Protocol Lorazepam 0.5 mg 08/02/18 08:06 08/03/18 10:11 Ativan IVP 0.5 mg Q6 PRN Administration Agitation Methylprednisolone 40 mg 08/01/18 10:00 08/03/18 10:11 Solu-Medrol IVP 40 mg Q12H JOSE Administration Pantoprazole Sodium 40 mg 08/01/18 06:00 08/03/18 05:38 Protonix Susp PO 40 mg 0600 JOSE Administration Vitamin B Complex/Vit C/Folic Acid 1 tab 08/03/18 08:00 08/03/18 17:13 Nephro-Fortino PO Not Given 0800 JOSE - Patient Studies Lab Studies: Microbiology Studies 07/31/18 16:00 Blood Culture - Preliminary Blood NO GROWTH AFTER 3 DAYS 07/31/18 15:20 S.aureus & Coag-Neg Staph PNA FISH - Final Blood Blood Culture - Preliminary Gram Positive Cocci Gram Stain - Final Lab Studies 08/03/18 08/03/18 08/03/18 Range/Units 17:16 14:50 13:56 WBC (4.8-10.8) K/uL RBC (3.80-5.20) Mil/uL Hgb (11.0-16.0) g/dL Hct (34.0-47.0) % MCV (81.0-99.0) fL MCH (27.0-31.0) pg MCHC (33.0-37.0) g/dL RDW (11.5-14.5) % Plt Count (130-400) K/uL MPV (7.2-11.7) fL Neut % (Auto) (50.0-75.0) % Lymph % (Auto) (20.0-40.0) % [place] % (Auto) (0.0-10.0) % Eos % (Auto) (0.0-4.0) % Baso % (Auto) (0.0-2.0) % Neut # (Auto) (1.8-7.0) K/uL Lymph # (Auto) (1.0-4.3) K/uL [place] # (Auto) (0.0-0.8) K/uL Eos # (Auto) (0.0-0.7) K/uL Baso # (Auto) (0.0-0.2) K/uL Neutrophils % (Manual) (50-75) % Lymphocytes % (Manual) (20-40) % Monocytes % (Manual) (0-10) % Nucleated RBC % (0-0) % Platelet Estimate (NORMAL) Polychromasia Hypochromasia (manual) Anisocytosis (manual) PT 12.6 H (9.7-12.2) SECONDS INR 1.2 APTT 32 (21-34) SECONDS Puncture Site pCO2 (35-45) mm/Hg pO2 (80-100) mm/Hg HCO3 (21-28) mmol/L ABG pH (7.35-7.45) ABG Total CO2 (22-28) mmol/L ABG O2 Saturation (95-98) % ABG Base Excess (-2.0-3.0) mmol/L ABG Hemoglobin (11.7-17.4) g/dL ABG Carboxyhemoglobin (0.5-1.5) % POC ABG HHb (Measured) (0.0-5.0) % ABG Methemoglobin (0.0-3.0) % Yoan Test A-a O2 Difference mm/Hg Respiratory Index Hgb O2 Saturation (95.0-98.0) % Vent Mode Mechanical Rate FiO2 % Tidal Volume PEEP Pressure Support CPAP Crit Value Called To Crit Value Called By Crit Value Read Back Blood Gas Notified Time Sodium (132-148) mmol/L Potassium (3.6-5.2) mmol/L Chloride (98-107) mmol/L Carbon Dioxide (22-30) mmol/L Anion Gap (10-20) BUN (7-17) mg/dL Creatinine (0.7-1.2) mg/dL Est GFR ( Amer) Est GFR (Non-Af Amer) POC Glucose (mg/dL) 151 H (65-110) mg/dL Random Glucose (65-105) mg/dL Calcium (8.6-10.4) mg/dl Phosphorus (2.5-4.5) mg/dL Magnesium (1.6-2.3) mg/dL Total Bilirubin (0.2-1.3) mg/dL AST (14-36) U/L ALT (9-52) U/L Alkaline Phosphatase (38-126) U/L Total Protein (6.3-8.3) g/dL Total Protein (PEP) (6.1-8.1) g/dL Albumin (3.5-5.0) g/dL Albumin (PEP) (3.8-4.8) g/dL Globulin (2.2-3.9) gm/dL Albumin/Globulin Ratio (1.0-2.1) Bqoln-2-Hxpcjvtop (0.2-0.3) g/dL Cgtch-0-Fcsjnzzzu (0.5-0.9) g/dL Jtvh-3-Slducajc (0.4-0.6) g/dL Egyo-6-Ahzkwuas (0.2-0.5) g/dL Gamma Globulins (0.8-1.7) g/dL Abnorm Protein Band 1 Abnorm Protein Band 2 Abnorm Protein Band 3 Triglycerides (0-149) mg/dL Cholesterol (0-199) mg/dL LDL Cholesterol Direct (0-129) mg/dL HDL Cholesterol (30-70) mg/dL TSH 3rd Generation (0.46-4.68) mIU/L BEAR & SPEP Interp Blood Type O POSITIVE Blood Type Confirm O POSITIVE Antibody Screen Negative 08/03/18 08/03/18 08/03/18 Range/Units 13:56 12:55 06:20 WBC 16.8 H (4.8-10.8) K/uL RBC 2.20 L (3.80-5.20) Mil/uL Hgb 6.9 L (11.0-16.0) g/dL Hct 20.4 L (34.0-47.0) % MCV 92.7 (81.0-99.0) fL MCH 31.3 H (27.0-31.0) pg MCHC 33.7 (33.0-37.0) g/dL RDW 14.7 H (11.5-14.5) % Plt Count 155 (130-400) K/uL MPV 8.4 (7.2-11.7) fL Neut % (Auto) (50.0-75.0) % Lymph % (Auto) (20.0-40.0) % [place] % (Auto) (0.0-10.0) % Eos % (Auto) (0.0-4.0) % Baso % (Auto) (0.0-2.0) % Neut # (Auto) (1.8-7.0) K/uL Lymph # (Auto) (1.0-4.3) K/uL [place] # (Auto) (0.0-0.8) K/uL Eos # (Auto) (0.0-0.7) K/uL Baso # (Auto) (0.0-0.2) K/uL Neutrophils % (Manual) (50-75) % Lymphocytes % (Manual) (20-40) % Monocytes % (Manual) (0-10) % Nucleated RBC % (0-0) % Platelet Estimate (NORMAL) Polychromasia Hypochromasia (manual) Anisocytosis (manual) PT (9.7-12.2) SECONDS INR APTT (21-34) SECONDS Puncture Site Rra pCO2 30 L (35-45) mm/Hg pO2 135 H (80-100) mm/Hg HCO3 24.6 (21-28) mmol/L ABG pH 7.49 H (7.35-7.45) ABG Total CO2 23.8 (22-28) mmol/L ABG O2 Saturation 99.8 H (95-98) % ABG Base Excess -0.5 (-2.0-3.0) mmol/L ABG Hemoglobin 5.5 L (11.7-17.4) g/dL ABG Carboxyhemoglobin 1.7 H (0.5-1.5) % POC ABG HHb (Measured) 0.2 (0.0-5.0) % ABG Methemoglobin 0.4 (0.0-3.0) % Yoan Test Po A-a O2 Difference 113.0 mm/Hg Respiratory Index 0.8 Hgb O2 Saturation 97.8 (95.0-98.0) % Vent Mode Cpap Mechanical Rate FiO2 40.0 % Tidal Volume PEEP Pressure Support 10 CPAP 5 Crit Value Called To Crit Value Called By Omar rodríguez,solar manager Crit Value Read Back Y Blood Gas Notified Time 1300 Sodium 146 (132-148) mmol/L Potassium 3.4 L (3.6-5.2) mmol/L Chloride 108 H (98-107) mmol/L Carbon Dioxide 21 L (22-30) mmol/L Anion Gap 20 (10-20) BUN 44 H (7-17) mg/dL Creatinine 3.9 H (0.7-1.2) mg/dL Est GFR ( Amer) 14 Est GFR (Non-Af Amer) 12 POC Glucose (mg/dL) (65-110) mg/dL Random Glucose 176 H (65-105) mg/dL Calcium 8.5 L (8.6-10.4) mg/dl Phosphorus 2.0 L (2.5-4.5) mg/dL Magnesium 1.9 (1.6-2.3) mg/dL Total Bilirubin 0.5 (0.2-1.3) mg/dL AST 31 (14-36) U/L ALT 38 (9-52) U/L Alkaline Phosphatase 51 (38-126) U/L Total Protein 5.9 L (6.3-8.3) g/dL Total Protein (PEP) (6.1-8.1) g/dL Albumin 2.9 L (3.5-5.0) g/dL Albumin (PEP) (3.8-4.8) g/dL Globulin 3.0 (2.2-3.9) gm/dL Albumin/Globulin Ratio 1.0 (1.0-2.1) Pogpg-8-Deptzsbdw (0.2-0.3) g/dL Abqdr-9-Noiheekbk (0.5-0.9) g/dL Hcfe-7-Ecdjzhrv (0.4-0.6) g/dL Moug-8-Uccxntad (0.2-0.5) g/dL Gamma Globulins (0.8-1.7) g/dL Abnorm Protein Band 1 Abnorm Protein Band 2 Abnorm Protein Band 3 Triglycerides (0-149) mg/dL Cholesterol (0-199) mg/dL LDL Cholesterol Direct (0-129) mg/dL HDL Cholesterol (30-70) mg/dL TSH 3rd Generation (0.46-4.68) mIU/L BEAR & SPEP Interp Blood Type Blood Type Confirm Antibody Screen 08/03/18 08/03/18 08/03/18 Range/Units 06:20 06:18 04:15 WBC 15.6 H (4.8-10.8) K/uL RBC 2.29 L (3.80-5.20) Mil/uL Hgb 7.2 L (11.0-16.0) g/dL Hct 21.1 L (34.0-47.0) % MCV 91.9 (81.0-99.0) fL MCH 31.6 H (27.0-31.0) pg MCHC 34.3 (33.0-37.0) g/dL RDW 14.5 (11.5-14.5) % Plt Count 178 (130-400) K/uL MPV 8.6 (7.2-11.7) fL Neut % (Auto) 93.5 H (50.0-75.0) % Lymph % (Auto) 3.5 L (20.0-40.0) % [place] % (Auto) 2.7 (0.0-10.0) % Eos % (Auto) 0.0 (0.0-4.0) % Baso % (Auto) 0.3 (0.0-2.0) % Neut # (Auto) 14.6 H (1.8-7.0) K/uL Lymph # (Auto) 0.5 L (1.0-4.3) K/uL [place] # (Auto) 0.4 (0.0-0.8) K/uL Eos # (Auto) 0.0 (0.0-0.7) K/uL Baso # (Auto) 0.0 (0.0-0.2) K/uL Neutrophils % (Manual) 97 H (50-75) % Lymphocytes % (Manual) 2 L (20-40) % Monocytes % (Manual) 1 (0-10) % Nucleated RBC % 1 H (0-0) % Platelet Estimate Normal (NORMAL) Polychromasia Slight Hypochromasia (manual) Slight Anisocytosis (manual) Slight PT (9.7-12.2) SECONDS INR APTT (21-34) SECONDS Puncture Site Lb pCO2 31 L (35-45) mm/Hg pO2 203 H (80-100) mm/Hg HCO3 23.9 (21-28) mmol/L ABG pH 7.46 H (7.35-7.45) ABG Total CO2 23.0 (22-28) mmol/L ABG O2 Saturation 99.4 H (95-98) % ABG Base Excess -1.3 (-2.0-3.0) mmol/L ABG Hemoglobin 9.6 L (11.7-17.4) g/dL ABG Carboxyhemoglobin 1.1 (0.5-1.5) % POC ABG HHb (Measured) 0.6 (0.0-5.0) % ABG Methemoglobin 0.7 (0.0-3.0) % Yoan Test Na A-a O2 Difference 115.0 mm/Hg Respiratory Index 0.6 Hgb O2 Saturation 97.5 (95.0-98.0) % Vent Mode Prvc Mechanical Rate 20 FiO2 50.0 % Tidal Volume 450 PEEP 5 Pressure Support CPAP Crit Value Called To Crit Value Called By Crit Value Read Back Blood Gas Notified Time Sodium (132-148) mmol/L Potassium (3.6-5.2) mmol/L Chloride (98-107) mmol/L Carbon Dioxide (22-30) mmol/L Anion Gap (10-20) BUN (7-17) mg/dL Creatinine (0.7-1.2) mg/dL Est GFR ( Amer) Est GFR (Non-Af Amer) POC Glucose (mg/dL) (65-110) mg/dL Random Glucose (65-105) mg/dL Calcium (8.6-10.4) mg/dl Phosphorus (2.5-4.5) mg/dL Magnesium (1.6-2.3) mg/dL Total Bilirubin (0.2-1.3) mg/dL AST (14-36) U/L ALT (9-52) U/L Alkaline Phosphatase (38-126) U/L Total Protein (6.3-8.3) g/dL Total Protein (PEP) (6.1-8.1) g/dL Albumin (3.5-5.0) g/dL Albumin (PEP) (3.8-4.8) g/dL Globulin (2.2-3.9) gm/dL Albumin/Globulin Ratio (1.0-2.1) Zyhhg-1-Ahfotmbai (0.2-0.3) g/dL Wloxz-0-Mkrzyuray (0.5-0.9) g/dL Ghms-8-Aexlzjwu (0.4-0.6) g/dL Gyym-1-Ojpywbum (0.2-0.5) g/dL Gamma Globulins (0.8-1.7) g/dL Abnorm Protein Band 1 Abnorm Protein Band 2 Abnorm Protein Band 3 Triglycerides 164 H (0-149) mg/dL Cholesterol 109 (0-199) mg/dL LDL Cholesterol Direct 62 (0-129) mg/dL HDL Cholesterol 29 L (30-70) mg/dL TSH 3rd Generation 1.33 (0.46-4.68) mIU/L BEAR & SPEP Interp Blood Type Blood Type Confirm Antibody Screen 08/02/18 08/02/18 Range/Units 17:53 05:49 WBC (4.8-10.8) K/uL RBC (3.80-5.20) Mil/uL Hgb (11.0-16.0) g/dL Hct (34.0-47.0) % MCV (81.0-99.0) fL MCH (27.0-31.0) pg MCHC (33.0-37.0) g/dL RDW (11.5-14.5) % Plt Count (130-400) K/uL MPV (7.2-11.7) fL Neut % (Auto) (50.0-75.0) % Lymph % (Auto) (20.0-40.0) % [place] % (Auto) (0.0-10.0) % Eos % (Auto) (0.0-4.0) % Baso % (Auto) (0.0-2.0) % Neut # (Auto) (1.8-7.0) K/uL Lymph # (Auto) (1.0-4.3) K/uL [place] # (Auto) (0.0-0.8) K/uL Eos # (Auto) (0.0-0.7) K/uL Baso # (Auto) (0.0-0.2) K/uL Neutrophils % (Manual) (50-75) % Lymphocytes % (Manual) (20-40) % Monocytes % (Manual) (0-10) % Nucleated RBC % (0-0) % Platelet Estimate (NORMAL) Polychromasia Hypochromasia (manual) Anisocytosis (manual) PT (9.7-12.2) SECONDS INR APTT (21-34) SECONDS Puncture Site pCO2 (35-45) mm/Hg pO2 (80-100) mm/Hg HCO3 (21-28) mmol/L ABG pH (7.35-7.45) ABG Total CO2 (22-28) mmol/L ABG O2 Saturation (95-98) % ABG Base Excess (-2.0-3.0) mmol/L ABG Hemoglobin (11.7-17.4) g/dL ABG Carboxyhemoglobin (0.5-1.5) % POC ABG HHb (Measured) (0.0-5.0) % ABG Methemoglobin (0.0-3.0) % Yoan Test A-a O2 Difference mm/Hg Respiratory Index Hgb O2 Saturation (95.0-98.0) % Vent Mode Mechanical Rate FiO2 % Tidal Volume PEEP Pressure Support CPAP Crit Value Called To Crit Value Called By Crit Value Read Back Blood Gas Notified Time Sodium (132-148) mmol/L Potassium (3.6-5.2) mmol/L Chloride (98-107) mmol/L Carbon Dioxide (22-30) mmol/L Anion Gap (10-20) BUN (7-17) mg/dL Creatinine (0.7-1.2) mg/dL Est GFR ( Amer) Est GFR (Non-Af Amer) POC Glucose (mg/dL) 128 H (65-110) mg/dL Random Glucose (65-105) mg/dL Calcium (8.6-10.4) mg/dl Phosphorus (2.5-4.5) mg/dL Magnesium (1.6-2.3) mg/dL Total Bilirubin (0.2-1.3) mg/dL AST (14-36) U/L ALT (9-52) U/L Alkaline Phosphatase (38-126) U/L Total Protein (6.3-8.3) g/dL Total Protein (PEP) 5.3 L (6.1-8.1) g/dL Albumin (3.5-5.0) g/dL Albumin (PEP) 2.5 L (3.8-4.8) g/dL Globulin (2.2-3.9) gm/dL Albumin/Globulin Ratio (1.0-2.1) Qgxit-0-Zfxujmftd 0.5 H (0.2-0.3) g/dL Diuij-9-Zeaprzcut 0.8 (0.5-0.9) g/dL Zouq-9-Khnofugl 0.2 L (0.4-0.6) g/dL Rkpu-7-Ifwwfwzw 0.3 (0.2-0.5) g/dL Gamma Globulins 0.9 (0.8-1.7) g/dL Abnorm Protein Band 1 TEST NOT PERFORMED Abnorm Protein Band 2 TEST NOT PERFORMED Abnorm Protein Band 3 TEST NOT PERFORMED Triglycerides (0-149) mg/dL Cholesterol (0-199) mg/dL LDL Cholesterol Direct (0-129) mg/dL HDL Cholesterol (30-70) mg/dL TSH 3rd Generation (0.46-4.68) mIU/L BEAR & SPEP Interp See note Blood Type Blood Type Confirm Antibody Screen Laboratory Results - last 24 hr 08/02/18 08/02/18 08/03/18 05:49 17:53 04:15 WBC RBC Hgb Hct MCV MCH MCHC RDW Plt Count MPV Neut % (Auto) Lymph % (Auto) [place] % (Auto) Eos % (Auto) Baso % (Auto) Neut # (Auto) Lymph # (Auto) [place] # (Auto) Eos # (Auto) Baso # (Auto) Neutrophils % (Manual) Lymphocytes % (Manual) Monocytes % (Manual) Nucleated RBC % Platelet Estimate Polychromasia Hypochromasia (manual) Anisocytosis (manual) PT INR APTT Puncture Site Lb pCO2 31 L pO2 203 H HCO3 23.9 ABG pH 7.46 H ABG Total CO2 23.0 ABG O2 Saturation 99.4 H ABG Base Excess -1.3 ABG Hemoglobin 9.6 L ABG Carboxyhemoglobin 1.1 POC ABG HHb (Measured) 0.6 ABG Methemoglobin 0.7 Yoan Test Na A-a O2 Difference 115.0 Respiratory Index 0.6 Hgb O2 Saturation 97.5 Vent Mode Prvc Mechanical Rate 20 FiO2 50.0 Tidal Volume 450 PEEP 5 Pressure Support CPAP Crit Value Called To Crit Value Called By Crit Value Read Back Blood Gas Notified Time Sodium Potassium Chloride Carbon Dioxide Anion Gap BUN Creatinine Est GFR ( Amer) Est GFR (Non-Af Amer) POC Glucose (mg/dL) 128 H Random Glucose Calcium Phosphorus Magnesium Total Bilirubin AST ALT Alkaline Phosphatase Total Protein Total Protein (PEP) 5.3 L Albumin Albumin (PEP) 2.5 L Globulin Albumin/Globulin Ratio Ktglq-9-Dnzhxaqog 0.5 H Dxgsh-7-Gadejmivt 0.8 Hihd-5-Prmwahfb 0.2 L Ixgj-3-Lrqpdgce 0.3 Gamma Globulins 0.9 Abnorm Protein Band 1 TEST NOT PERFORMED Abnorm Protein Band 2 TEST NOT PERFORMED Abnorm Protein Band 3 TEST NOT PERFORMED Triglycerides Cholesterol LDL Cholesterol Direct HDL Cholesterol TSH 3rd Generation BEAR & SPEP Interp See note Blood Type Blood Type Confirm Antibody Screen 08/03/18 08/03/18 08/03/18 06:18 06:20 06:20 WBC 15.6 H RBC 2.29 L Hgb 7.2 L Hct 21.1 L MCV 91.9 MCH 31.6 H MCHC 34.3 RDW 14.5 Plt Count 178 MPV 8.6 Neut % (Auto) 93.5 H Lymph % (Auto) 3.5 L [place] % (Auto) 2.7 Eos % (Auto) 0.0 Baso % (Auto) 0.3 Neut # (Auto) 14.6 H Lymph # (Auto) 0.5 L [place] # (Auto) 0.4 Eos # (Auto) 0.0 Baso # (Auto) 0.0 Neutrophils % (Manual) 97 H Lymphocytes % (Manual) 2 L Monocytes % (Manual) 1 Nucleated RBC % 1 H Platelet Estimate Normal Polychromasia Slight Hypochromasia (manual) Slight Anisocytosis (manual) Slight PT INR APTT Puncture Site pCO2 pO2 HCO3 ABG pH ABG Total CO2 ABG O2 Saturation ABG Base Excess ABG Hemoglobin ABG Carboxyhemoglobin POC ABG HHb (Measured) ABG Methemoglobin Yoan Test A-a O2 Difference Respiratory Index Hgb O2 Saturation Vent Mode Mechanical Rate FiO2 Tidal Volume PEEP Pressure Support CPAP Crit Value Called To Crit Value Called By Crit Value Read Back Blood Gas Notified Time Sodium 146 Potassium 3.4 L Chloride 108 H Carbon Dioxide 21 L Anion Gap 20 BUN 44 H Creatinine 3.9 H Est GFR ( Amer) 14 Est GFR (Non-Af Amer) 12 POC Glucose (mg/dL) Random Glucose 176 H Calcium 8.5 L Phosphorus 2.0 L Magnesium 1.9 Total Bilirubin 0.5 AST 31 ALT 38 Alkaline Phosphatase 51 Total Protein 5.9 L Total Protein (PEP) Albumin 2.9 L Albumin (PEP) Globulin 3.0 Albumin/Globulin Ratio 1.0 Bfggf-1-Iddblboio Swyod-7-Xqnnnyfxj Ptle-8-Tcdsfkrs Xkdt-9-Llbdwmji Gamma Globulins Abnorm Protein Band 1 Abnorm Protein Band 2 Abnorm Protein Band 3 Triglycerides 164 H Cholesterol 109 LDL Cholesterol Direct 62 HDL Cholesterol 29 L TSH 3rd Generation 1.33 BEAR & SPEP Interp Blood Type Blood Type Confirm Antibody Screen 08/03/18 08/03/18 08/03/18 12:55 13:56 13:56 WBC 16.8 H RBC 2.20 L Hgb 6.9 L Hct 20.4 L MCV 92.7 MCH 31.3 H MCHC 33.7 RDW 14.7 H Plt Count 155 MPV 8.4 Neut % (Auto) Lymph % (Auto) [place] % (Auto) Eos % (Auto) Baso % (Auto) Neut # (Auto) Lymph # (Auto) [place] # (Auto) Eos # (Auto) Baso # (Auto) Neutrophils % (Manual) Lymphocytes % (Manual) Monocytes % (Manual) Nucleated RBC % Platelet Estimate Polychromasia Hypochromasia (manual) Anisocytosis (manual) PT INR APTT Puncture Site Rra pCO2 30 L pO2 135 H HCO3 24.6 ABG pH 7.49 H ABG Total CO2 23.8 ABG O2 Saturation 99.8 H ABG Base Excess -0.5 ABG Hemoglobin 5.5 L ABG Carboxyhemoglobin 1.7 H POC ABG HHb (Measured) 0.2 ABG Methemoglobin 0.4 Yoan Test Po A-a O2 Difference 113.0 Respiratory Index 0.8 Hgb O2 Saturation 97.8 Vent Mode Cpap Mechanical Rate FiO2 40.0 Tidal Volume PEEP Pressure Support 10 CPAP 5 Crit Value Called To Crit Value Called By Omar rodríguez,solar manager Crit Value Read Back Y Blood Gas Notified Time 1300 Sodium Potassium Chloride Carbon Dioxide Anion Gap BUN Creatinine Est GFR ( Amer) Est GFR (Non-Af Amer) POC Glucose (mg/dL) Random Glucose Calcium Phosphorus Magnesium Total Bilirubin AST ALT Alkaline Phosphatase Total Protein Total Protein (PEP) Albumin Albumin (PEP) Globulin Albumin/Globulin Ratio Fpjdj-4-Xrledtewe Uxvur-2-Irtdroqrq Lboy-0-Ihikglsa Abub-1-Lfsfzwlh Gamma Globulins Abnorm Protein Band 1 Abnorm Protein Band 2 Abnorm Protein Band 3 Triglycerides Cholesterol LDL Cholesterol Direct HDL Cholesterol TSH 3rd Generation BEAR & SPEP Interp Blood Type O POSITIVE Blood Type Confirm O POSITIVE Antibody Screen Negative 08/03/18 08/03/18 14:50 17:16 WBC RBC Hgb Hct MCV MCH MCHC RDW Plt Count MPV Neut % (Auto) Lymph % (Auto) [place] % (Auto) Eos % (Auto) Baso % (Auto) Neut # (Auto) Lymph # (Auto) [place] # (Auto) Eos # (Auto) Baso # (Auto) Neutrophils % (Manual) Lymphocytes % (Manual) Monocytes % (Manual) Nucleated RBC % Platelet Estimate Polychromasia Hypochromasia (manual) Anisocytosis (manual) PT 12.6 H INR 1.2 APTT 32 Puncture Site pCO2 pO2 HCO3 ABG pH ABG Total CO2 ABG O2 Saturation ABG Base Excess ABG Hemoglobin ABG Carboxyhemoglobin POC ABG HHb (Measured) ABG Methemoglobin Yoan Test A-a O2 Difference Respiratory Index Hgb O2 Saturation Vent Mode Mechanical Rate FiO2 Tidal Volume PEEP Pressure Support CPAP Crit Value Called To Crit Value Called By Crit Value Read Back Blood Gas Notified Time Sodium Potassium Chloride Carbon Dioxide Anion Gap BUN Creatinine Est GFR ( Amer) Est GFR (Non-Af Amer) POC Glucose (mg/dL) 151 H Random Glucose Calcium Phosphorus Magnesium Total Bilirubin AST ALT Alkaline Phosphatase Total Protein Total Protein (PEP) Albumin Albumin (PEP) Globulin Albumin/Globulin Ratio Odqyj-0-Wzdmojmtw Iifsr-5-Xslxjspas Mhlw-8-Lsdkyfgh Kgkn-9-Jkztnelx Gamma Globulins Abnorm Protein Band 1 Abnorm Protein Band 2 Abnorm Protein Band 3 Triglycerides Cholesterol LDL Cholesterol Direct HDL Cholesterol TSH 3rd Generation BEAR & SPEP Interp Blood Type Blood Type Confirm Antibody Screen Attending/Attestation - Attestation I have personally seen and examined this patient.: Yes I have fully participated in the care of the patient.: Yes I have reviewed all pertinent clinical information: Yes Notes (Text): 08/03/18 18:57 patient seen and examined in the intensive care unit Transfuse packed RBCs Hemodialysis weaning Continue present treatment
[2018-08-03 15:06] LABS: INR 1.2; PROTHROMBIN TIME 12.6 SECONDS (9.7-12.2)
--- NOTE | 2018-08-03 15:08 | CP.PCM.PN ---
Subjective - Date & Time of Evaluation Date of Evaluation: 08/03/18 Time of Evaluation: 15:07 - Subjective Subjective: Nephrology Consultation Note Assessment: critical Acute Kidney Injury (N17.9) likely due to ATN Hypertensive Chronic Kidney Disease (I12.9) Hypokalemia Chronic Kidney Disease (N18.9) Stage ? with ? mg proteinuria (R80.9) likely due to HTN ? ESRD Anemia (D64.9), Hyperphosphatemia (E83.39) left lung collapse, UTI Mitral Regurg, depression/Anxiety Plan she had 1st session 07/31/18. tentaive plan for next HD today or tomorrow. d/c shiley after the dialysis. vascular surgery follow up for permacath insertion Maintain hemodynamics stable. Avoid hypotension. Patient not on ACEI/ARB due to recent ROBIN Monitor Input/Output, daily weights and renal function with basic metabolic panel started Fe, MVI, epogen and weekly Vit D PRBC as needed Check urine analysis, spot protein/creatinine, albumin/creatinine ratio. Pending renal sonogram. CPK Check GN work up as C3, C4, LINDSEY, Anti dsDNA, ASO titers, ANCA (MPO and OR-3), Anti GBM antibody, HIV Anemia work up with TSAT/Ferritin/Vitamin B12/folate, serum protein electrophoresis with immunofixation, serum free light chain assay ([place]/Lambda) Check for 25-OH vitamin D, iPTH, phosphorus level. Dose meds/antibiotics for reduced GFR. Avoid fleets enema/magnesium based laxatives. Avoid nephrotoxins/NSAIDs/ iodinated contrast (unless needed emergently) Glycemic control Further work up for as per primary team Thanks for allowing me to participate in care of your patient. Will follow patient with you. Please call if any Qs. kev maynard team Dr Heriberto Hernandez Office: [phone] Subjective: Noted events overnight. Patients intubated and sedated. Physical Examination: General Appearance: Comfortable, in no acute respiratory distress, intubated Vitals reviewed and noted as below Head; Atraumatic, normocephalic ENT: oally intubated EYES: Pupils are equal, round and reactive to light accommodation. Eye muscles and extraocular movement intact. Sclera is anicteric. Neck; supple no lymphadenopathy, no thyromegaly or bruit Lungs: Normal respiratory rate/effort. Breath sounds b/l improved Heart: Increased rate. s1s2 normal. No rub or gallop. SM + at apex Extremities: 1+ edema. No varicose veins Neurological: Patient is sedated Skin: Warm and dry. Normal turgor. No rash. Palpitation: Normal elasticity for age Abdomen: Abdomen is soft. Bowel sounds +. There is no abdominal tenderness, no guarding/rigidity no organomegaly Psych: unable MSK: no joint tenderness or swelling. Digits and nails normal, no deformity : kidney or bladder not palpable access: femoral shiley Labs/imaging reviewed. Past medical history, past surgical history, family history, social history, allergy reviewed and noted as below Family hx: no hx of CKD. Rest non-contributory work up: CXR: left lung collapse Hep B/C neg UA 2+ protein 1+ blood Objective - Vital Signs/Intake and Output Vital Signs (last 24 hours): Temp Pulse Resp BP Pulse Ox 98.0 F 79 16 161/98 H 98 08/03/18 12:00 08/03/18 12:00 08/03/18 12:00 08/03/18 11:47 08/03/18 12:00 Intake and Output: 08/03/18 08/03/18 06:59 18:59 Intake Total 1165 500 Output Total 100 230 Balance 1065 270 - Medications Medications: Current Medications Albuterol/Ipratropium (Duoneb 3 Mg/0.5 Mg (3 Ml) Ud) 3 ml INH RQ6 [facility] Last Admin: 08/03/18 13:14 Dose: 3 ml Bacitracin (Bacitracin) 1 ea TOP BID [facility] Stop: 08/07/18 20:01 Last Admin: 08/03/18 10:11 Dose: 1 ea Calcium Acetate (Phoslo) 667 mg PO TIDCC [facility] Epoetin Morales (Procrit) 10,000 unit IV TTS [facility] Last Admin: 08/02/18 17:57 Dose: 10,000 unit Ergocalciferol (Drisdol 50,000 Intl Units Cap) 1 cap PO Q7D [facility] Last Admin: 08/02/18 14:42 Dose: 1 cap Ferrous Gluconate (Fergon) 324 mg PO TID [facility] Last Admin: 08/03/18 10:11 Dose: 324 mg Heparin Sodium (Porcine) (Heparin) 5,000 units SC Q8 [facility] Last Admin: 08/03/18 05:38 Dose: 5,000 units Piperacillin Sod/Tazobactam Sod (Zosyn 2.25 Gm Iv Premix) 2.25 gm in 50 mls @ 100 mls/hr IVPB Q6H JOSE; Protocol Last Admin: 08/03/18 05:42 Dose: 100 mls/hr Lorazepam (Ativan) 0.5 mg IVP Q6 PRN PRN Reason: Agitation Last Admin: 08/03/18 10:11 Dose: 0.5 mg Methylprednisolone (Solu-Medrol) 40 mg IVP Q12H JOSE Last Admin: 08/03/18 10:11 Dose: 40 mg Pantoprazole Sodium (Protonix Susp) 40 mg PO 0600 [facility] Last Admin: 08/03/18 05:38 Dose: 40 mg Vitamin B Complex/Vit C/Folic Acid (Nephro-Fortino) 1 tab PO 0800 [facility] Last Admin: 08/03/18 10:11 Dose: 1 tab - Labs Labs: 08/03/18 13:56 08/03/18 06:20 PT 12.6 SECONDS (9.7-12.2) H 08/03/18 14:50 INR 1.2 08/03/18 14:50 APTT 32 SECONDS (21-34) 08/03/18 14:50
--- NOTE | 2018-08-03 17:36 | CP.PCM.CON ---
History of Present Illness - History of Present Illness History of Present Illness: referred for ID eval of leukocytosis 62 y/o female, brought to ED by EMS for altered mental status. 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 However, son states patient's condition worsened, and she was not answering any questions today. EMS was called again. Upon EMS arrival, pt found to be unresponsive Pt was intubated on field, admitted with ROBIN, possible pneumonia fx right humerus and resp failure as well as AMS PMH HTN hyperlipidemia, and depression, famhx: unable to obtain sochx: unable to obtain meds as below all: nkda Review of Systems - Review of Systems Systems not reviewed;Unavailable: Altered Mental Status, Intubated - Constitutional Constitutional: As Per HPI - EENT Eyes: absent: As Per HPI, Blind Spots, Blurred Vision, Change in Vision, Decreased Night Vision, Diplopia, Discharge, Dry Eye, Exophthalmos, Floaters, Irritation, Itchy Eyes, Loss of Peripheral Vision, Pain, Photophobia, Requires C orrective Lenses, Sees Flashes, Spots in Vision, Tunnel Vision, Other Visual Disturbances, Loss of Vision, Other Ears: absent: As Per HPI, Decreased Hearing, Ear Discharge, Ear Pain, Tinnitus, Abnormal Hearing, Disequilibrium, Dizziness, Other Nose/Mouth/Throat: absent: As Per HPI, Epistaxis, Nasal Congestion, Nasal Discharge, Nasal Obstruction, Nasal Trauma, Nose Pain, Post Nasal Drip, Sinus Pain, Sinus Pressure, Bleeding Gums, Change in Voice, Dental Pain, Dry Mouth, Dysphagia, Halitosis, Hoarsness, Lip Swelling, Mouth Lesions, Mouth Pain, Od ynophagia, Sore Throat, Throat Swelling, Tongue Swelling, Facial Pain, Neck Pain, Neck Mass, Other - Breasts Breasts: absent: As Per HPI, Change in Shape, Mass, Pain, Nipple Discharge, Nipple Inversion, Skin Changes, Swelling, Other - Cardiovascular Cardiovascular: absent: As Per HPI, Acrocyanosis, Chest Pain, Chest Pain at Rest, Chest Pain with Activity, Claudication, Diaphoresis, Dyspnea, Dyspnea on Exertion, Edema, Irregular Heart Rhythm, Pain Radiating to Arm/Neck/Jaw, Leg Edema, Leg Ulcers, Lightheadedness, Orthopnea, Palpitations, Paroxysmal Nocturnal Dyspnea, Pedal Edema, Radiating Pain, Rapid Heart Rate, Slow Heart Rate, Syncope, Other - Respiratory Respiratory: absent: As Per HPI, Cough, Dyspnea, Hemoptysis, Dyspnea on Exertion, Wheezing, Snoring, Stridor, Pain on Inspiration, Chest Congestion, Excessive Mucous Production, Change in Mucous Color, Pain with Coughing, Other - Gastrointestinal Gastrointestinal: absent: As Per HPI, Abdominal Pain, Belching, Bloating, Change in Bowel Habits, Change in Stool Character, Coffee Ground Emesis, Constipation, Cramping, Diarrhea, Dyspepsia, Dysphagia, Early Satiety, Excessive Flatus, Fecal Incontinence, Heartburn, Hematemesis, Hematochezia, Loose Stools, Melena, Nausea, Odynophagia, Temesmus, Vomiting, Other - Genitourinary Genitourinary: absent: As Per HPI, Change in Urinary Stream, Difficulty Urinating, Dysuria, Flank Pain, Hematuria, Pyuria, Nocturia, Urinary Incontinence, Urinary Frequency, Urinary Hesitance, Urinary Urgency, Voiding Freq/Small Amts, Freq UTI, Hx Renal/Bladder Calculi, Hx /Renal Surgery, Bladder Distension, Other - Reproductive: Female Reproductive:Female: absent: As Per HPI, Amenorrhea, Amenorrhea/ Control, Currently Menstual, Cycle <21 Days, Cycle >35 Days, Cycle Variable, Menses 1-7 Days, Menses >/= 8 Days, Menses Variable, Cycle > 4 Weeks Between, No Menses for 6 Months, Heavy Menses, Light Menses, Normal Menses, Spotting Between Cycles, S/P Hysterectomy, Menopausal, Post Menopausal, Premenarche, Abnormal Vaginal Bleeding, Dysmenorrhea, Dyspareunia, Genital Lesions, Genital Pruritis, Pelvic Pain, Prolapse Symptoms, Sexual Dysfunction, Vaginal Discharge, Vaginal Dryness, Vaginal Odor, Vaginal Pruritis, Other - Menstruation Menstruation: absent: As Per HPI, Amenorrhea, Amenorrhea/ Control, Currently Menstual, Cycle <21 Days, Cycle >35 Days, Cycle Variable, Menses 1-7 Days, Menses >/= 8 Days, Menses Variable, Cycle > 4 Weeks Between, No Menses for 6 Months, Heavy Menses, Light Menses, Normal Menses, Spotting Between Cycles, S/P Hysterectomy, Menopausal, Post Menopausal, Premenarche, Abnormal Vaginal Bleeding, Dysmenorrhea, Other - Musculoskeletal Musculoskeletal: absent: As Per HPI, Abnormal Gait, Arthralgias, Atrophy, Back Pain, Deformity, Joint Swelling, Limited Range of Motion, Loss of Height, Muscle Cramps, Muscle Weakness, Myalgias, Neck Pain, Numbness, Radiating Pain into Limb, Stiffness, Tingling, Other - Integumentary Integumentary: absent: As Per HPI, Acne, Alopecia, Bleeding Lesions, Change in Hair, Change in Nails, Change in Pigmentation, Changing Lesions, Dry Skin, Erythema, Furuncle, Hirsutism, Lesions, New Lesions, Non-Healing Lesions, Photosensitivity, Pruritus, Rash, Skin Pain, Skin Ulcer, Sores, Striae, Swelling, Unusual Bruising, Wounds, Jaundice, Other - Neurological Neurological: absent: As Per HPI, Abnormal Gait, Abnormal Hearing, Abnormal Movements, Abnormal Speech, Behavioral Changes, Burning Sensations, Confusion, Convulsions, Disequilibrium, Dizziness, Numbness, Focal Weakness, Frequent Falls, Headaches, Lack of Coordination, Loss of Vision, Memory Loss, Paresthesias, Radicular Pain, Restless Legs, Sensory Deficit, Syncope, Tingling, Tremor, Vertigo, Weakness, Other Visual Disturbances, Other - Psychiatric Psychiatric: absent: As Per HPI, Abnormal Sleep Pattern, Anhedonia, Anxiety, Auditory Hallucinations, Behavioral Changes, Change in Appetite, Change in Libido, Confusion, Depression, Difficulty Concentrating, Hallucinations, Homicidal Ideation, Hopelessness, Irritability, Memory Loss, Mood Swings, Panic Attacks, Paranoia, Suicidal Ideation, Visual Hallucinations, Tactile Hallucinations, Other - Endocrine Endocrine: absent: As Per HPI, Change in Body Appearance, Change in Libido, Cold Intolorance, Deepening of Voice, Excessive Sweating, Fatigue, Flushing, Heat Intolorance, Increase in Ring/Shoe/Hat Size, Palpitations, Polydipsia, Polyphagia, Polyuria, Other Past Patient History - Past Medical History & Family History Past Medical History?: Yes - Past Social History Smoking Status: Unknown If Ever Smoked - CARDIAC Hx Hypertension: Yes - MUSCULOSKELETAL/RHEUMATOLOGICAL Hx Falls: No - PSYCHIATRIC Hx Depression: Yes Hx Substance Use: (unknown) - ANESTHESIA Hx Anesthesia: No Hx Anesthesia Reactions: No Hx Malignant Hyperthermia: No Has any member of the family had a problem w/ anesthesia?: No Meds Allergies/Adverse Reactions: Allergies Allergy/AdvReac Type Severity Reaction Status Date / Time No Known Allergies Allergy Verified 07/31/18 15:33 - Medications Medications: Current Medications Albuterol/Ipratropium (Duoneb 3 Mg/0.5 Mg (3 Ml) Ud) 3 ml INH RQ6 [facility] Last Admin: 08/03/18 13:14 Dose: 3 ml Bacitracin (Bacitracin) 1 ea TOP BID [facility] Stop: 08/07/18 20:01 Last Admin: 08/03/18 17:09 Dose: 1 ea Calcium Acetate (Phoslo) 667 mg PO TIDCC [facility] Last Admin: 08/03/18 17:11 Dose: 667 mg Epoetin Morales (Procrit) 10,000 unit IV TTS [facility] Last Admin: 08/02/18 17:57 Dose: 10,000 unit Ergocalciferol (Drisdol 50,000 Intl Units Cap) 1 cap PO Q7D [facility] Last Admin: 08/02/18 14:42 Dose: 1 cap Ferrous Gluconate (Fergon) 324 mg PO TID [facility] Last Admin: 08/03/18 17:13 Dose: 324 mg Heparin Sodium (Porcine) (Heparin) 5,000 units SC Q8 [facility] Last Admin: 08/03/18 14:11 Dose: 5,000 units Piperacillin Sod/Tazobactam Sod (Zosyn 2.25 Gm Iv Premix) 2.25 gm in 50 mls @ 100 mls/hr IVPB Q6H [facility]; Protocol Last Admin: 08/03/18 17:13 Dose: Not Given Lorazepam (Ativan) 0.5 mg IVP Q6 PRN PRN Reason: Agitation Last Admin: 08/03/18 10:11 Dose: 0.5 mg Methylprednisolone (Solu-Medrol) 40 mg IVP Q12H [facility] Last Admin: 08/03/18 10:11 Dose: 40 mg Pantoprazole Sodium (Protonix Susp) 40 mg PO 0600 [facility] Last Admin: 08/03/18 05:38 Dose: 40 mg Vitamin B Complex/Vit C/Folic Acid (Nephro-Fortino) 1 tab PO 0800 [facility] Last Admin: 08/03/18 17:13 Dose: Not Given Physical Exam - Constitutional Appears: Non-toxic, Confused, Chronically Ill - Head Exam Head Exam: NORMOCEPHALIC - Eye Exam Eye Exam: PERRL. absent: Scleral icterus - ENT Exam ENT Exam: Mucous Membranes Dry - Neck Exam Neck exam: Negative for: Lymphadenopathy - Respiratory Exam Respiratory Exam: Decreased Breath Sounds, Rhonchi - Cardiovascular Exam Cardiovascular Exam: Tachycardia, REGULAR RHYTHM, +S1, +S2 - GI/Abdominal Exam GI & Abdominal Exam: Diminished Bowel Sounds, Distended, Soft. absent: Tenderness - Rectal Exam Rectal Exam: Deferred - Exam Exam: NORMAL INSPECTION - Extremities Exam Extremities exam: Positive for: pedal pulses present. Negative for: calf tenderness, pedal edema, tenderness - Back Exam Back exam: absent: CVA tenderness (L), CVA tenderness (R) - Neurological Exam Neurological exam: Alert, Altered, CN II-XII Intact - Psychiatric Exam Psychiatric exam: Depressed - Skin Skin Exam: Dry Results - Vital Signs Recent Vital Signs: Last Vital Signs Temp 99.1 F 08/03/18 17:00 Pulse 74 08/03/18 17:00 Resp 16 08/03/18 17:00 BP 156/64 H 08/03/18 17:00 Pulse Ox 98 08/03/18 12:00 - Labs Result Diagrams: 08/03/18 13:56 08/03/18 06:20 Labs: Laboratory Results - last 24 hr 08/02/18 08/02/18 08/03/18 05:49 17:53 04:15 WBC RBC Hgb Hct MCV MCH MCHC RDW Plt Count MPV Neut % (Auto) Lymph % (Auto) [place] % (Auto) Eos % (Auto) Baso % (Auto) Neut # (Auto) Lymph # (Auto) [place] # (Auto) Eos # (Auto) Baso # (Auto) Neutrophils % (Manual) Lymphocytes % (Manual) Monocytes % (Manual) Nucleated RBC % Platelet Estimate Polychromasia Hypochromasia (manual) Anisocytosis (manual) PT INR APTT Puncture Site Lb pCO2 31 L pO2 203 H HCO3 23.9 ABG pH 7.46 H ABG Total CO2 23.0 ABG O2 Saturation 99.4 H ABG Base Excess -1.3 ABG Hemoglobin 9.6 L ABG Carboxyhemoglobin 1.1 POC ABG HHb (Measured) 0.6 ABG Methemoglobin 0.7 Yoan Test Na A-a O2 Difference 115.0 Respiratory Index 0.6 Hgb O2 Saturation 97.5 Vent Mode Prvc Mechanical Rate 20 FiO2 50.0 Tidal Volume 450 PEEP 5 Pressure Support CPAP Crit Value Called To Crit Value Called By Crit Value Read Back Blood Gas Notified Time Sodium Potassium Chloride Carbon Dioxide Anion Gap BUN Creatinine Est GFR ( Amer) Est GFR (Non-Af Amer) POC Glucose (mg/dL) 128 H Random Glucose Calcium Phosphorus Magnesium Total Bilirubin AST ALT Alkaline Phosphatase Total Protein Total Protein (PEP) 5.3 L Albumin Albumin (PEP) 2.5 L Globulin Albumin/Globulin Ratio Sfybt-1-Bzohlsfbw 0.5 H Jtien-4-Kghhuxsib 0.8 Xhtu-7-Eerfrdjs 0.2 L Gwdh-2-Radywqxq 0.3 Gamma Globulins 0.9 Abnorm Protein Band 1 TEST NOT PERFORMED Abnorm Protein Band 2 TEST NOT PERFORMED Abnorm Protein Band 3 TEST NOT PERFORMED Triglycerides Cholesterol LDL Cholesterol Direct HDL Cholesterol TSH 3rd Generation BEAR & SPEP Interp See note Blood Type Blood Type Confirm Antibody Screen 08/03/18 08/03/18 08/03/18 06:18 06:20 06:20 WBC 15.6 H RBC 2.29 L Hgb 7.2 L Hct 21.1 L MCV 91.9 MCH 31.6 H MCHC 34.3 RDW 14.5 Plt Count 178 MPV 8.6 Neut % (Auto) 93.5 H Lymph % (Auto) 3.5 L [place] % (Auto) 2.7 Eos % (Auto) 0.0 Baso % (Auto) 0.3 Neut # (Auto) 14.6 H Lymph # (Auto) 0.5 L [place] # (Auto) 0.4 Eos # (Auto) 0.0 Baso # (Auto) 0.0 Neutrophils % (Manual) 97 H Lymphocytes % (Manual) 2 L Monocytes % (Manual) 1 Nucleated RBC % 1 H Platelet Estimate Normal Polychromasia Slight Hypochromasia (manual) Slight Anisocytosis (manual) Slight PT INR APTT Puncture Site pCO2 pO2 HCO3 ABG pH ABG Total CO2 ABG O2 Saturation ABG Base Excess ABG Hemoglobin ABG Carboxyhemoglobin POC ABG HHb (Measured) ABG Methemoglobin Yoan Test A-a O2 Difference Respiratory Index Hgb O2 Saturation Vent Mode Mechanical Rate FiO2 Tidal Volume PEEP Pressure Support CPAP Crit Value Called To Crit Value Called By Crit Value Read Back Blood Gas Notified Time Sodium 146 Potassium 3.4 L Chloride 108 H Carbon Dioxide 21 L Anion Gap 20 BUN 44 H Creatinine 3.9 H Est GFR ( Amer) 14 Est GFR (Non-Af Amer) 12 POC Glucose (mg/dL) Random Glucose 176 H Calcium 8.5 L Phosphorus 2.0 L Magnesium 1.9 Total Bilirubin 0.5 AST 31 ALT 38 Alkaline Phosphatase 51 Total Protein 5.9 L Total Protein (PEP) Albumin 2.9 L Albumin (PEP) Globulin 3.0 Albumin/Globulin Ratio 1.0 Ywikw-1-Eoipntxxt Xgvtq-7-Wbhtegjjv Ekbn-9-Zwzhwpyq Oycn-0-Xsezhlpl Gamma Globulins Abnorm Protein Band 1 Abnorm Protein Band 2 Abnorm Protein Band 3 Triglycerides 164 H Cholesterol 109 LDL Cholesterol Direct 62 HDL Cholesterol 29 L TSH 3rd Generation 1.33 BEAR & SPEP Interp Blood Type Blood Type Confirm Antibody Screen 08/03/18 08/03/18 08/03/18 12:55 13:56 13:56 WBC 16.8 H RBC 2.20 L Hgb 6.9 L Hct 20.4 L MCV 92.7 MCH 31.3 H MCHC 33.7 RDW 14.7 H Plt Count 155 MPV 8.4 Neut % (Auto) Lymph % (Auto) [place] % (Auto) Eos % (Auto) Baso % (Auto) Neut # (Auto) Lymph # (Auto) [place] # (Auto) Eos # (Auto) Baso # (Auto) Neutrophils % (Manual) Lymphocytes % (Manual) Monocytes % (Manual) Nucleated RBC % Platelet Estimate Polychromasia Hypochromasia (manual) Anisocytosis (manual) PT INR APTT Puncture Site Rra pCO2 30 L pO2 135 H HCO3 24.6 ABG pH 7.49 H ABG Total CO2 23.8 ABG O2 Saturation 99.8 H ABG Base Excess -0.5 ABG Hemoglobin 5.5 L ABG Carboxyhemoglobin 1.7 H POC ABG HHb (Measured) 0.2 ABG Methemoglobin 0.4 Yoan Test Po A-a O2 Difference 113.0 Respiratory Index 0.8 Hgb O2 Saturation 97.8 Vent Mode Cpap Mechanical Rate FiO2 40.0 Tidal Volume PEEP Pressure Support 10 CPAP 5 Crit Value Called To Crit Value Called By Omar rodríguez,eyeglass assembler Crit Value Read Back Y Blood Gas Notified Time 1300 Sodium Potassium Chloride Carbon Dioxide Anion Gap BUN Creatinine Est GFR ( Amer) Est GFR (Non-Af Amer) POC Glucose (mg/dL) Random Glucose Calcium Phosphorus Magnesium Total Bilirubin AST ALT Alkaline Phosphatase Total Protein Total Protein (PEP) Albumin Albumin (PEP) Globulin Albumin/Globulin Ratio Ktqjn-4-Zmbonlugb Qlhwj-6-Lpzhebkfd Qhvj-3-Rhmbjeth Gwcx-1-Vrtqiqyg Gamma Globulins Abnorm Protein Band 1 Abnorm Protein Band 2 Abnorm Protein Band 3 Triglycerides Cholesterol LDL Cholesterol Direct HDL Cholesterol TSH 3rd Generation BEAR & SPEP Interp Blood Type O POSITIVE Blood Type Confirm O POSITIVE Antibody Screen Negative 08/03/18 14:50 WBC RBC Hgb Hct MCV MCH MCHC RDW Plt Count MPV Neut % (Auto) Lymph % (Auto) [place] % (Auto) Eos % (Auto) Baso % (Auto) Neut # (Auto) Lymph # (Auto) [place] # (Auto) Eos # (Auto) Baso # (Auto) Neutrophils % (Manual) Lymphocytes % (Manual) Monocytes % (Manual) Nucleated RBC % Platelet Estimate Polychromasia Hypochromasia (manual) Anisocytosis (manual) PT 12.6 H INR 1.2 APTT 32 Puncture Site pCO2 pO2 HCO3 ABG pH ABG Total CO2 ABG O2 Saturation ABG Base Excess ABG Hemoglobin ABG Carboxyhemoglobin POC ABG HHb (Measured) ABG Methemoglobin Yoan Test A-a O2 Difference Respiratory Index Hgb O2 Saturation Vent Mode Mechanical Rate FiO2 Tidal Volume PEEP Pressure Support CPAP Crit Value Called To Crit Value Called By Crit Value Read Back Blood Gas Notified Time Sodium Potassium Chloride Carbon Dioxide Anion Gap BUN Creatinine Est GFR ( Amer) Est GFR (Non-Af Amer) POC Glucose (mg/dL) Random Glucose Calcium Phosphorus Magnesium Total Bilirubin AST ALT Alkaline Phosphatase Total Protein Total Protein (PEP) Albumin Albumin (PEP) Globulin Albumin/Globulin Ratio Kaiia-2-Lajnoziea Dvgtt-3-Kcshjmler Wqnk-8-Wqygvuld Lnkx-1-Pwzminxe Gamma Globulins Abnorm Protein Band 1 Abnorm Protein Band 2 Abnorm Protein Band 3 Triglycerides Cholesterol LDL Cholesterol Direct HDL Cholesterol TSH 3rd Generation BEAR & SPEP Interp Blood Type Blood Type Confirm Antibody Screen Assessment & Plan (1) Acute kidney injury Status: Acute (2) Closed fracture of right proximal humerus Status: Acute (3) Metabolic acidosis Status: Acute (4) Respiratory failure Status: Acute (5) Rhabdomyolysis Status: Acute - Assessment and Plan (Free Text) Assessment: ESBL + UTI SEPSIS AMS RESP FAILURE DEHYDRATION ROBIN STAPH IN BLOOD FX HUMERUS DEPRESSION FALLS R/O SUBSTANCE ABUSE MULTIPLE SKIN LESIONS CONSIDER ECHO AND OR RIAN IF NOT DONE MAY NEED LP WELL CONTIV ANTIBIOTICS ORDERED
[2018-08-03] MEDS ORDERED: Meropenem 1 GM in Sodium Chloride 0.9% 100 ML IVPB ONE (17:45)
[2018-08-04] MEDS: Meropenem 500 MG in Sodium Chloride 0.9% 100 ML IVPB SCH ×3 (01:10→18:25)
[2018-08-04] MEDS: Albuterol-Ipratrop 3 mg / 0.5 (3 ml) UD INH SCH ×4 (01:20→20:19)
[2018-08-04 04:43] LABS: ABG ALLEN TEST POS; ARTERIAL BLOOD GAS HEMOGLOBIN 6.5 g/dL (11.7-17.4); ARTERIAL BLOOD GAS O2 SAT 100.9 % (95-98); ARTERIAL BLOOD GAS PCO2 21 mm/Hg (35-45); ARTERIAL BLOOD GAS PH 7.52 (7.35-7.45); ARTERIAL BLOOD GAS PO2 223 mm/Hg (80-100); ARTERIAL BLOOD GAS TCO2 17.7 mmol/L (22-28)
[2018-08-04] MEDS: Pantoprazole 40 mg Susp UD PO SCH (06:00)
[2018-08-04 06:46] LABS: EOS % 0.4 % (0.0-4.0); MONO # 0.4 K/uL (0.0-0.8); RED CELL DISTRIBUTION WIDTH 14.8 % (11.5-14.5)
[2018-08-04 07:05] LABS: ALBUMIN 2.8 g/dL (3.5-5.0); CALCIUM 8.5 mg/dl (8.6-10.4)
[2018-08-04 07:09] LABS: BASO # 0.1 K/uL (0.0-0.2); BASO % 0.6 % (0.0-2.0); LYMPH # 1.1 K/uL (1.0-4.3); LYMPH % 8.8 % (20.0-40.0); MEAN CELL VOLUME 91.1 fL (81.0-99.0); MEAN CORPUSCULAR HEMOGLOBIN 31.4 pg (27.0-31.0); MEAN CORPUSCULAR HGB CONC 34.5 g/dL (33.0-37.0); MEAN PLATELET VOLUME 9.2 fL (7.2-11.7); MONO % 3.1 % (0.0-10.0); NEUT # 10.5 K/uL (1.8-7.0); NEUT % 87.1 % (50.0-75.0); NRBC % 1.7 % (0.0-2.0); PLATELET COUNT 127 K/uL (130-400); RBC 2.55 Mil/uL (3.80-5.20)
--- NOTE | 2018-08-04 08:43 | RAD ---
Date of service: 08/04/2018 HISTORY: vented COMPARISON: 08/03/2018. FINDINGS: Endotracheal tube terminates 1.5 cm proximal to the ede. LUNGS: The right lung is clear. There is haziness in the left lung. PLEURA: No significant pleural effusion identified, no pneumothorax apparent. CARDIOVASCULAR: Mild cardiomegaly. Unfolding of the aorta. OSSEOUS STRUCTURES: Redemonstration of acute displaced right proximal humeral fracture. VISUALIZED UPPER ABDOMEN: Normal. OTHER FINDINGS: None. IMPRESSION: Stable position of endotracheal and nasogastric tubes. Diffuse haziness in the left lung could be related to layering effusion however underlying airspace disease cannot be excluded. Redemonstration of acute displaced fracture in the right proximal humerus.
[2018-08-04] MEDS: Multivitamin Vitamin B Complex (Nephro-Vite) Tab PO SCH (08:53)
[2018-08-04] MEDS: Bacitracin 500 Units/gm Oint Foilpak UD TOP SCH ×2 (09:35→18:23)
[2018-08-04 09:55] LABS: LYMPHOCYTE 5 % (20-40); MONOCYTE 4 % (0-10); NEUTROPHIL 91 % (50-75); NUCLEATED RED BLOOD CELL 2 % (0-0); PLATELET ESTIMATE SLIGHTLY DECREASED (NORMAL); TOTAL CELLS COUNTED 100
[2018-08-04 09:57] LABS: ANISOCYTOSIS SLIGHT; HYPOCHROMIC SLIGHT; MICROCYTOSIS SLIGHT; POIKILOCYTOSIS SLIGHT
[2018-08-04 09:58] LABS: POLYCHROMIC SLIGHT
[2018-08-04] MEDS: Epoetin Alfa 10,000 unit/ml Dialysis IV SCH (12:49)
--- NOTE | 2018-08-04 13:33 | CP.PCM.PN ---
Subjective - Date & Time of Evaluation Date of Evaluation: 08/04/18 Time of Evaluation: 13:32 - Subjective Subjective: Nephrology Consultation Note Assessment: critical Acute Kidney Injury (N17.9) likely due to ATN Hypertensive Chronic Kidney Disease (I12.9) Hypokalemia Chronic Kidney Disease (N18.9) Stage ? with ? mg proteinuria (R80.9) likely due to HTN ? ESRD Anemia (D64.9), Hyperphosphatemia (E83.39) left lung collapse, UTI Mitral Regurg, depression/Anxiety Plan she had 1st session 07/31/18. tentaive plan for next HD today d/c shiley today after the dialysis. vascular surgery follow up for permacath insertion Maintain hemodynamics stable. Avoid hypotension. Patient not on ACEI/ARB due to recent ROBIN Monitor Input/Output, daily weights and renal function with basic metabolic panel started Fe, MVI, epogen and weekly Vit D PRBC as needed hold binders Check urine analysis, spot protein/creatinine, albumin/creatinine ratio. Pending renal sonogram. CPK Check GN work up as C3, C4, LINDSEY, Anti dsDNA, ASO titers, ANCA (MPO and ME-3), Anti GBM antibody, HIV Anemia work up with TSAT/Ferritin/Vitamin B12/folate, serum protein electrophoresis with immunofixation, serum free light chain assay ([place]/Lambda) Check for 25-OH vitamin D, iPTH, phosphorus level. Dose meds/antibiotics for reduced GFR. Avoid fleets enema/magnesium based laxatives. Avoid nephrotoxins/NSAIDs/ iodinated contrast (unless needed emergently) Glycemic control Further work up for as per primary team Thanks for allowing me to participate in care of your patient. Will follow patient with you. Please call if any Qs. kev maynard team Dr Heriberto Hernandez Office: [phone] Subjective: Noted events overnight. Patients intubated and sedated. Physical Examination: General Appearance: Comfortable, in no acute respiratory distress, intubated Vitals reviewed and noted as below Head; Atraumatic, normocephalic ENT: oally intubated EYES: Pupils are equal, round and reactive to light accommodation. Eye muscles and extraocular movement intact. Sclera is anicteric. Neck; supple no lymphadenopathy, no thyromegaly or bruit Lungs: Normal respiratory rate/effort. Breath sounds b/l improved Heart: Increased rate. s1s2 normal. No rub or gallop. SM + at apex Extremities: 1+ edema. No varicose veins Neurological: Patient is sedated Skin: Warm and dry. Normal turgor. No rash. Palpitation: Normal elasticity for age Abdomen: Abdomen is soft. Bowel sounds +. There is no abdominal tenderness, no guarding/rigidity no organomegaly Psych: unable MSK: no joint tenderness or swelling. Digits and nails normal, no deformity : kidney or bladder not palpable access: femoral shiley Labs/imaging reviewed. Past medical history, past surgical history, family history, social history, allergy reviewed and noted as below Family hx: no hx of CKD. Rest non-contributory work up: CXR: left lung collapse Hep B/C neg UA 2+ protein 1+ blood Objective - Vital Signs/Intake and Output Vital Signs (last 24 hours): Temp Pulse Resp BP Pulse Ox 98.1 F 61 20 84/60 L 98 08/04/18 12:00 08/04/18 12:00 08/04/18 12:00 08/04/18 12:00 08/04/18 12:00 Intake and Output: 08/04/18 08/04/18 06:59 18:59 Intake Total 1083 Output Total 400 Balance 683 - Medications Medications: Current Medications Albuterol/Ipratropium (Duoneb 3 Mg/0.5 Mg (3 Ml) Ud) 3 ml INH RQ6 REPLACED BY [facility] Last Admin: 08/04/18 08:14 Dose: 3 ml Bacitracin (Bacitracin) 1 ea TOP BID REPLACED BY [facility] Stop: 08/07/18 20:01 Last Admin: 08/03/18 17:09 Dose: 1 ea Epoetin Morales (Procrit) 10,000 unit IV TTS [facility]PL[facility]ED BY [facility] Last Admin: 08/04/18 12:49 Dose: 10,000 unit Ergocalciferol (Drisdol 50,000 Intl Units Cap) 1 cap PO Q7D [facility]PL[facility] Last Admin: 08/02/18 14:42 Dose: 1 cap Ferrous Gluconate (Fergon) 324 mg PO TID REPLACED [facility] Last Admin: 08/03/18 17:13 Dose: 324 mg Heparin Sodium (Porcine) (Heparin) 5,000 units SC Q8 REPLACED BY [facility] Meropenem 500 mg/ Sodium (Chloride) 100 mls @ 100 mls/hr IVPB Q8H [facility]; Protocol Last Admin: 08/04/18 01:10 Dose: 100 mls/hr Methylprednisolone (Solu-Medrol) 40 mg IVP Q12H [facility] Last Admin: 08/03/18 21:26 Dose: 40 mg Pantoprazole Sodium (Protonix Susp) 40 mg PO 0600 [facility] Last Admin: 08/03/18 05:38 Dose: 40 mg Vitamin B Complex/Vit C/Folic Acid (Nephro-Fortino) 1 tab PO 0800 [facility]PL[facility]ED [facility] Last Admin: 08/04/18 08:53 Dose: Not Given - Labs Labs: 08/04/18 06:30 08/04/18 06:30 PT 12.6 SECONDS (9.7-12.2) H 08/03/18 14:50 INR 1.2 08/03/18 14:50 APTT 32 SECONDS (21-34) 08/03/18 14:50
[2018-08-04 13:45] LABS: ARTERIAL BLOOD GAS HEMOGLOBIN 8.6 g/dL (11.7-17.4); ARTERIAL BLOOD GAS PCO2 30 mm/Hg (35-45); ARTERIAL BLOOD GAS PH 7.55 (7.35-7.45); ARTERIAL BLOOD GAS PO2 84 mm/Hg (80-100); ARTERIAL BLOOD GAS TCO2 27.1 mmol/L (22-28)
--- NOTE | 2018-08-04 14:21 | CP.PCM.CON ---
History of Present Illness - History of Present Illness History of Present Illness: Surgery 62 F w PMH Past Patient History - Past Medical History & Family History Past Medical History?: Yes - Past Social History Smoking Status: Unknown If Ever Smoked - CARDIAC Hx Hypertension: Yes - MUSCULOSKELETAL/RHEUMATOLOGICAL Hx Falls: No - PSYCHIATRIC Hx Depression: Yes Hx Substance Use: (unknown) - ANESTHESIA Hx Anesthesia: No Hx Anesthesia Reactions: No Hx Malignant Hyperthermia: No Has any member of the family had a problem w/ anesthesia?: No Meds Allergies/Adverse Reactions: Allergies Allergy/AdvReac Type Severity Reaction Status Date / Time No Known Allergies Allergy Verified 07/31/18 15:33 - Medications Medications: Current Medications Albuterol/Ipratropium (Duoneb 3 Mg/0.5 Mg (3 Ml) Ud) 3 ml INH RQ6 [facility] Last Admin: 08/04/18 13:10 Dose: Not Given Bacitracin (Bacitracin) 1 ea TOP BID [facility] Stop: 08/07/18 20:01 Last Admin: 08/03/18 17:09 Dose: 1 ea Epoetin Morales (Procrit) 10,000 unit IV TTS [facility] Last Admin: 08/04/18 12:49 Dose: 10,000 unit Ergocalciferol (Drisdol 50,000 Intl Units Cap) 1 cap PO Q7D [facility] Last Admin: 08/02/18 14:42 Dose: 1 cap Ferrous Gluconate (Fergon) 324 mg PO TID [facility] Last Admin: 08/03/18 17:13 Dose: 324 mg Heparin Sodium (Porcine) (Heparin) 5,000 units SC Q8 [facility] Meropenem 500 mg/ Sodium (Chloride) 100 mls @ 100 mls/hr IVPB Q8H [facility]; Protocol Last Admin: 08/04/18 01:10 Dose: 100 mls/hr Methylprednisolone (Solu-Medrol) 40 mg IVP Q12H [facility] Last Admin: 08/03/18 21:26 Dose: 40 mg Pantoprazole Sodium (Protonix Susp) 40 mg PO 0600 [facility] Last Admin: 08/03/18 05:38 Dose: 40 mg Vitamin B Complex/Vit C/Folic Acid (Nephro-Fortino) 1 tab PO 0800 [facility] Last Admin: 08/04/18 08:53 Dose: Not Given Results - Vital Signs Recent Vital Signs: Last Vital Signs Temp 98.1 F 08/04/18 12:00 Pulse 61 08/04/18 12:00 Resp 20 08/04/18 12:00 BP 84/60 L 08/04/18 12:00 Pulse Ox 98 08/04/18 12:00 - Labs Result Diagrams: 08/05/18 06:31 08/05/18 06:32 Labs: Laboratory Results - last 24 hr 08/01/18 08/03/18 08/03/18 15:22 06:20 06:28 WBC RBC Hgb Hct MCV MCH MCHC RDW Plt Count MPV Neut % (Auto) Lymph % (Auto) [place] % (Auto) Eos % (Auto) Baso % (Auto) Neut # (Auto) Lymph # (Auto) [place] # (Auto) Eos # (Auto) Baso # (Auto) Neutrophils % (Manual) Lymphocytes % (Manual) Monocytes % (Manual) Nucleated RBC % Platelet Estimate Polychromasia Hypochromasia (manual) Poikilocytosis (manual Anisocytosis (manual) Microcytosis (manual) PT INR APTT Puncture Site pCO2 pO2 HCO3 ABG pH ABG Total CO2 ABG O2 Saturation ABG Base Excess ABG Hemoglobin ABG Carboxyhemoglobin POC ABG HHb (Measured) ABG Methemoglobin Yoan Test A-a O2 Difference Respiratory Index Hgb O2 Saturation Vent Mode Mechanical Rate FiO2 Tidal Volume PEEP Pressure Support Crit Value Called To Crit Value Called By Crit Value Read Back Blood Gas Notified Time Sodium Potassium Chloride Carbon Dioxide Anion Gap BUN Creatinine Est GFR ( Amer) Est GFR (Non-Af Amer) POC Glucose (mg/dL) Random Glucose Calcium Total Bilirubin AST ALT Alkaline Phosphatase Total Protein Albumin Globulin Albumin/Globulin Ratio Ur Random Creatinine 162 U Random Total Protein 974 H Urine Total Volume 9.0 Microalb/Creat Ratio 55 H LINDSEY Nuclear Membr Pat Negative Double Strand DNA Ab <1 Blood Type Blood Type Confirm Antibody Screen 08/03/18 08/03/18 08/03/18 13:56 14:50 17:16 WBC RBC Hgb Hct MCV MCH MCHC RDW Plt Count MPV Neut % (Auto) Lymph % (Auto) [place] % (Auto) Eos % (Auto) Baso % (Auto) Neut # (Auto) Lymph # (Auto) [place] # (Auto) Eos # (Auto) Baso # (Auto) Neutrophils % (Manual) Lymphocytes % (Manual) Monocytes % (Manual) Nucleated RBC % Platelet Estimate Polychromasia Hypochromasia (manual) Poikilocytosis (manual Anisocytosis (manual) Microcytosis (manual) PT 12.6 H INR 1.2 APTT 32 Puncture Site pCO2 pO2 HCO3 ABG pH ABG Total CO2 ABG O2 Saturation ABG Base Excess ABG Hemoglobin ABG Carboxyhemoglobin POC ABG HHb (Measured) ABG Methemoglobin Yoan Test A-a O2 Difference Respiratory Index Hgb O2 Saturation Vent Mode Mechanical Rate FiO2 Tidal Volume PEEP Pressure Support Crit Value Called To Crit Value Called By Crit Value Read Back Blood Gas Notified Time Sodium Potassium Chloride Carbon Dioxide Anion Gap BUN Creatinine Est GFR ( Amer) Est GFR (Non-Af Amer) POC Glucose (mg/dL) 151 H Random Glucose Calcium Total Bilirubin AST ALT Alkaline Phosphatase Total Protein Albumin Globulin Albumin/Globulin Ratio Ur Random Creatinine U Random Total Protein Urine Total Volume Microalb/Creat Ratio LINDSEY Nuclear Membr Pat Double Strand DNA Ab Blood Type O POSITIVE Blood Type Confirm O POSITIVE Antibody Screen Negative 08/04/18 08/04/18 08/04/18 04:30 06:30 06:30 WBC 12.0 H RBC 2.55 L Hgb 8.0 L Hct 23.3 L MCV 91.1 MCH 31.4 H MCHC 34.5 RDW 14.8 H Plt Count 127 L D MPV 9.2 Neut % (Auto) 87.1 H Lymph % (Auto) 8.8 L [place] % (Auto) 3.1 Eos % (Auto) 0.4 Baso % (Auto) 0.6 Neut # (Auto) 10.5 H Lymph # (Auto) 1.1 [place] # (Auto) 0.4 Eos # (Auto) 0.0 Baso # (Auto) 0.1 Neutrophils % (Manual) 91 H Lymphocytes % (Manual) 5 L Monocytes % (Manual) 4 Nucleated RBC % 2 H Platelet Estimate Slightly decreased L Polychromasia Slight Hypochromasia (manual) Slight Poikilocytosis (manual Slight Anisocytosis (manual) Slight Microcytosis (manual) Slight PT INR APTT Puncture Site Rr pCO2 21 L pO2 223 H HCO3 21.0 ABG pH 7.52 H ABG Total CO2 17.7 L ABG O2 Saturation 100.9 H ABG Base Excess -5.1 L ABG Hemoglobin 6.5 L ABG Carboxyhemoglobin 2.4 H POC ABG HHb (Measured) -0.9 L ABG Methemoglobin 1.0 Yoan Test Pos A-a O2 Difference 36.0 Respiratory Index 0.2 Hgb O2 Saturation 97.5 Vent Mode Prvc Mechanical Rate 20 FiO2 40.0 Tidal Volume 450 PEEP 5 Pressure Support Crit Value Called To Lonnie gil/rn Crit Value Called By Michael velásquez/rt Crit Value Read Back Y Blood Gas Notified Time 445 Sodium 146 Potassium 3.5 L Chloride 112 H Carbon Dioxide 21 L Anion Gap 17 BUN 62 H Creatinine 3.9 H Est GFR ( Amer) 14 Est GFR (Non-Af Amer) 12 POC Glucose (mg/dL) Random Glucose 194 H Calcium 8.5 L Total Bilirubin 1.0 AST 44 H D ALT 40 Alkaline Phosphatase 44 Total Protein 5.7 L Albumin 2.8 L Globulin 2.9 Albumin/Globulin Ratio 1.0 Ur Random Creatinine U Random Total Protein Urine Total Volume Microalb/Creat Ratio LINDSEY Nuclear Membr Pat Double Strand DNA Ab Blood Type Blood Type Confirm Antibody Screen 08/04/18 13:40 WBC RBC Hgb Hct MCV MCH MCHC RDW Plt Count MPV Neut % (Auto) Lymph % (Auto) [place] % (Auto) Eos % (Auto) Baso % (Auto) Neut # (Auto) Lymph # (Auto) [place] # (Auto) Eos # (Auto) Baso # (Auto) Neutrophils % (Manual) Lymphocytes % (Manual) Monocytes % (Manual) Nucleated RBC % Platelet Estimate Polychromasia Hypochromasia (manual) Poikilocytosis (manual Anisocytosis (manual) Microcytosis (manual) PT INR APTT Puncture Site Rra pCO2 30 L pO2 84 HCO3 28.0 ABG pH 7.55 H ABG Total CO2 27.1 ABG O2 Saturation 99.0 H ABG Base Excess 3.9 H ABG Hemoglobin 8.6 L ABG Carboxyhemoglobin 2.2 H POC ABG HHb (Measured) 1.0 ABG Methemoglobin 1.3 Yoan Test Na A-a O2 Difference 57.0 Respiratory Index 0.7 Hgb O2 Saturation 95.5 Vent Mode Cpap/ps Mechanical Rate FiO2 25.0 Tidal Volume PEEP Pressure Support 12 Crit Value Called To Crit Value Called By Crit Value Read Back Blood Gas Notified Time Sodium Potassium Chloride Carbon Dioxide Anion Gap BUN Creatinine Est GFR ( Amer) Est GFR (Non-Af Amer) POC Glucose (mg/dL) Random Glucose Calcium Total Bilirubin AST ALT Alkaline Phosphatase Total Protein Albumin Globulin Albumin/Globulin Ratio Ur Random Creatinine U Random Total Protein Urine Total Volume Microalb/Creat Ratio LINDSEY Nuclear Membr Pat Double Strand DNA Ab Blood Type Blood Type Confirm Antibody Screen
--- NOTE | 2018-08-04 14:22 | CP.PCM.CON ---
History of Present Illness - History of Present Illness History of Present Illness: Surgery 62yo F. PMHx HTN, hyperlipidemia, and depression came with AMS. Was drowsy y, couch bound for days expecially after recently starting Remeron for depression. Patient was lethargic but refused EMS pickup and admission to hospital. EMS called again and found patient unresponsive, and intubated her in the field. Pt had severe metabolic acidosis. Pt was found to have draining L labial abscess. Wound and blood cx grew Staph Aureus. Also has UTI. Cr was 9.6. Temporary HD catheter was placed and she has been getting HD. Today is day 5 for temporary catheter. Cr continues to be elevate. Surgery is consulted to place permacath. PMH HTN, HLD PSH temporary HD catheter Review of Systems - Review of Systems Systems not reviewed;Unavailable: Intubated Past Patient History - Past Medical History & Family History Past Medical History?: Yes - Past Social History Smoking Status: Unknown If Ever Smoked - CARDIAC Hx Hypertension: Yes - MUSCULOSKELETAL/RHEUMATOLOGICAL Hx Falls: No - PSYCHIATRIC Hx Depression: Yes Hx Substance Use: (unknown) - ANESTHESIA Hx Anesthesia: No Hx Anesthesia Reactions: No Hx Malignant Hyperthermia: No Has any member of the family had a problem w/ anesthesia?: No Meds Allergies/Adverse Reactions: Allergies Allergy/AdvReac Type Severity Reaction Status Date / Time No Known Allergies Allergy Verified 07/31/18 15:33 - Medications Medications: Current Medications Albuterol/Ipratropium (Duoneb 3 Mg/0.5 Mg (3 Ml) Ud) 3 ml INH RQ6 [facility] Last Admin: 08/04/18 13:10 Dose: Not Given Bacitracin (Bacitracin) 1 ea TOP BID [facility] Stop: 08/07/18 20:01 Last Admin: 08/03/18 17:09 Dose: 1 ea Epoetin Morales (Procrit) 10,000 unit IV TTS [facility] Last Admin: 08/04/18 12:49 Dose: 10,000 unit Ergocalciferol (Drisdol 50,000 Intl Units Cap) 1 cap PO Q7D [facility] Last Admin: 08/02/18 14:42 Dose: 1 cap Ferrous Gluconate (Fergon) 324 mg PO TID [facility] Last Admin: 08/03/18 17:13 Dose: 324 mg Heparin Sodium (Porcine) (Heparin) 5,000 units SC Q8 [facility] Meropenem 500 mg/ Sodium (Chloride) 100 mls @ 100 mls/hr IVPB Q8H [facility]; Protocol Last Admin: 08/04/18 01:10 Dose: 100 mls/hr Methylprednisolone (Solu-Medrol) 40 mg IVP Q12H [facility] Last Admin: 08/03/18 21:26 Dose: 40 mg Pantoprazole Sodium (Protonix Susp) 40 mg PO 0600 [facility] Last Admin: 08/03/18 05:38 Dose: 40 mg Vitamin B Complex/Vit C/Folic Acid (Nephro-Fortino) 1 tab PO 0800 [facility] Last Admin: 08/04/18 08:53 Dose: Not Given Physical Exam - Constitutional Appears: In Acute Distress - Head Exam Head Exam: ATRAUMATIC, NORMAL INSPECTION, NORMOCEPHALIC - ENT Exam ENT Exam: Mucous Membranes Moist - Neck Exam Neck exam: Positive for: Normal Inspection - Respiratory Exam Respiratory Exam: Respiratory Distress - Cardiovascular Exam Cardiovascular Exam: REGULAR RHYTHM - GI/Abdominal Exam GI & Abdominal Exam: Soft. absent: Tenderness - Rectal Exam Rectal Exam: NORMAL INSPECTION - Exam Exam: absent: NORMAL INSPECTION External exam: Lesions (L Labia has draining abscess) - Extremities Exam Additional comments: R groin Shiley - Back Exam Back exam: NORMAL INSPECTION - Neurological Exam Neurological exam: Altered - Skin Skin Exam: Erythema, Rash, Warm Results - Vital Signs Recent Vital Signs: Last Vital Signs Temp 98.1 F 08/04/18 12:00 Pulse 61 08/04/18 12:00 Resp 20 08/04/18 12:00 BP 84/60 L 08/04/18 12:00 Pulse Ox 98 08/04/18 12:00 - Labs Result Diagrams: 08/04/18 06:30 08/04/18 06:30 Labs: Laboratory Results - last 24 hr 08/01/18 08/03/18 08/03/18 15:22 06:20 06:28 WBC RBC Hgb Hct MCV MCH MCHC RDW Plt Count MPV Neut % (Auto) Lymph % (Auto) [place] % (Auto) Eos % (Auto) Baso % (Auto) Neut # (Auto) Lymph # (Auto) [place] # (Auto) Eos # (Auto) Baso # (Auto) Neutrophils % (Manual) Lymphocytes % (Manual) Monocytes % (Manual) Nucleated RBC % Platelet Estimate Polychromasia Hypochromasia (manual) Poikilocytosis (manual Anisocytosis (manual) Microcytosis (manual) PT INR APTT Puncture Site pCO2 pO2 HCO3 ABG pH ABG Total CO2 ABG O2 Saturation ABG Base Excess ABG Hemoglobin ABG Carboxyhemoglobin POC ABG HHb (Measured) ABG Methemoglobin Yoan Test A-a O2 Difference Respiratory Index Hgb O2 Saturation Vent Mode Mechanical Rate FiO2 Tidal Volume PEEP Pressure Support Crit Value Called To Crit Value Called By Crit Value Read Back Blood Gas Notified Time Sodium Potassium Chloride Carbon Dioxide Anion Gap BUN Creatinine Est GFR ( Amer) Est GFR (Non-Af Amer) POC Glucose (mg/dL) Random Glucose Calcium Total Bilirubin AST ALT Alkaline Phosphatase Total Protein Albumin Globulin Albumin/Globulin Ratio Ur Random Creatinine 162 U Random Total Protein 974 H Urine Total Volume 9.0 Microalb/Creat Ratio 55 H LINDSEY Nuclear Membr Pat Negative Double Strand DNA Ab <1 Blood Type Blood Type Confirm Antibody Screen 08/03/18 08/03/18 08/03/18 13:56 14:50 17:16 WBC RBC Hgb Hct MCV MCH MCHC RDW Plt Count MPV Neut % (Auto) Lymph % (Auto) [place] % (Auto) Eos % (Auto) Baso % (Auto) Neut # (Auto) Lymph # (Auto) [place] # (Auto) Eos # (Auto) Baso # (Auto) Neutrophils % (Manual) Lymphocytes % (Manual) Monocytes % (Manual) Nucleated RBC % Platelet Estimate Polychromasia Hypochromasia (manual) Poikilocytosis (manual Anisocytosis (manual) Microcytosis (manual) PT 12.6 H INR 1.2 APTT 32 Puncture Site pCO2 pO2 HCO3 ABG pH ABG Total CO2 ABG O2 Saturation ABG Base Excess ABG Hemoglobin ABG Carboxyhemoglobin POC ABG HHb (Measured) ABG Methemoglobin Yoan Test A-a O2 Difference Respiratory Index Hgb O2 Saturation Vent Mode Mechanical Rate FiO2 Tidal Volume PEEP Pressure Support Crit Value Called To Crit Value Called By Crit Value Read Back Blood Gas Notified Time Sodium Potassium Chloride Carbon Dioxide Anion Gap BUN Creatinine Est GFR ( Amer) Est GFR (Non-Af Amer) POC Glucose (mg/dL) 151 H Random Glucose Calcium Total Bilirubin AST ALT Alkaline Phosphatase Total Protein Albumin Globulin Albumin/Globulin Ratio Ur Random Creatinine U Random Total Protein Urine Total Volume Microalb/Creat Ratio LINDSEY Nuclear Membr Pat Double Strand DNA Ab Blood Type O POSITIVE Blood Type Confirm O POSITIVE Antibody Screen Negative 08/04/18 08/04/18 08/04/18 04:30 06:30 06:30 WBC 12.0 H RBC 2.55 L Hgb 8.0 L Hct 23.3 L MCV 91.1 MCH 31.4 H MCHC 34.5 RDW 14.8 H Plt Count 127 L D MPV 9.2 Neut % (Auto) 87.1 H Lymph % (Auto) 8.8 L [place] % (Auto) 3.1 Eos % (Auto) 0.4 Baso % (Auto) 0.6 Neut # (Auto) 10.5 H Lymph # (Auto) 1.1 [place] # (Auto) 0.4 Eos # (Auto) 0.0 Baso # (Auto) 0.1 Neutrophils % (Manual) 91 H Lymphocytes % (Manual) 5 L Monocytes % (Manual) 4 Nucleated RBC % 2 H Platelet Estimate Slightly decreased L Polychromasia Slight Hypochromasia (manual) Slight Poikilocytosis (manual Slight Anisocytosis (manual) Slight Microcytosis (manual) Slight PT INR APTT Puncture Site Rr pCO2 21 L pO2 223 H HCO3 21.0 ABG pH 7.52 H ABG Total CO2 17.7 L ABG O2 Saturation 100.9 H ABG Base Excess -5.1 L ABG Hemoglobin 6.5 L ABG Carboxyhemoglobin 2.4 H POC ABG HHb (Measured) -0.9 L ABG Methemoglobin 1.0 Yoan Test Pos A-a O2 Difference 36.0 Respiratory Index 0.2 Hgb O2 Saturation 97.5 Vent Mode Prvc Mechanical Rate 20 FiO2 40.0 Tidal Volume 450 PEEP 5 Pressure Support Crit Value Called To Lonnie lonnie/rn Crit Value Called By Michael velásquez/rt Crit Value Read Back Y Blood Gas Notified Time 445 Sodium 146 Potassium 3.5 L Chloride 112 H Carbon Dioxide 21 L Anion Gap 17 BUN 62 H Creatinine 3.9 H Est GFR ( Amer) 14 Est GFR (Non-Af Amer) 12 POC Glucose (mg/dL) Random Glucose 194 H Calcium 8.5 L Total Bilirubin 1.0 AST 44 H D ALT 40 Alkaline Phosphatase 44 Total Protein 5.7 L Albumin 2.8 L Globulin 2.9 Albumin/Globulin Ratio 1.0 Ur Random Creatinine U Random Total Protein Urine Total Volume Microalb/Creat Ratio LINDSEY Nuclear Membr Pat Double Strand DNA Ab Blood Type Blood Type Confirm Antibody Screen 08/04/18 13:40 WBC RBC Hgb Hct MCV MCH MCHC RDW Plt Count MPV Neut % (Auto) Lymph % (Auto) [place] % (Auto) Eos % (Auto) Baso % (Auto) Neut # (Auto) Lymph # (Auto) [place] # (Auto) Eos # (Auto) Baso # (Auto) Neutrophils % (Manual) Lymphocytes % (Manual) Monocytes % (Manual) Nucleated RBC % Platelet Estimate Polychromasia Hypochromasia (manual) Poikilocytosis (manual Anisocytosis (manual) Microcytosis (manual) PT INR APTT Puncture Site Rra pCO2 30 L pO2 84 HCO3 28.0 ABG pH 7.55 H ABG Total CO2 27.1 ABG O2 Saturation 99.0 H ABG Base Excess 3.9 H ABG Hemoglobin 8.6 L ABG Carboxyhemoglobin 2.2 H POC ABG HHb (Measured) 1.0 ABG Methemoglobin 1.3 Yoan Test Na A-a O2 Difference 57.0 Respiratory Index 0.7 Hgb O2 Saturation 95.5 Vent Mode Cpap/ps Mechanical Rate FiO2 25.0 Tidal Volume PEEP Pressure Support 12 Crit Value Called To Crit Value Called By Crit Value Read Back Blood Gas Notified Time Sodium Potassium Chloride Carbon Dioxide Anion Gap BUN Creatinine Est GFR ( Amer) Est GFR (Non-Af Amer) POC Glucose (mg/dL) Random Glucose Calcium Total Bilirubin AST ALT Alkaline Phosphatase Total Protein Albumin Globulin Albumin/Globulin Ratio Ur Random Creatinine U Random Total Protein Urine Total Volume Microalb/Creat Ratio LINDSEY Nuclear Membr Pat Double Strand DNA Ab Blood Type Blood Type Confirm Antibody Screen Assessment & Plan - Assessment and Plan (Free Text) Assessment: renal failure and septic shock -Will plan on permacath tomorrow -WIll obtain consent -ABX -IVF REGULO Casanova
--- NOTE | 2018-08-04 14:43 | CP.PCM.PN ---
Subjective - Date & Time of Evaluation Date of Evaluation: 08/04/18 Time of Evaluation: 14:38 - Subjective Subjective: Patient extubated today. She says she saw orthopedic doctor before, she doesn't remember when or who, who said that the bone will heal and there was nothing to do. She is unable to provide any more details about her shoulder. Spoke to her son on the phone. He states that she falls a lot and that the shoulder injury was over a year ago. He does not know if she had brace or who she saw. He gives same story that she was told the bone will heal and there was nothing to be done. Patient and son advised that the fracture never healed, and the fracture is displaced and will not heal in the position it is in. Son states they do not want any aggressive measures taken at this time. Dr. Becker notified of above. Review of Systems - Review of Systems Systems not reviewed;Unavailable: Altered Mental Status Objective - Vital Signs/Intake and Output Vital Signs (last 24 hours): Temp Pulse Resp BP Pulse Ox 98.1 F 61 20 84/60 L 98 08/04/18 12:00 08/04/18 12:00 08/04/18 12:00 08/04/18 12:00 08/04/18 12:00 Intake and Output: 08/04/18 08/04/18 06:59 18:59 Intake Total 1083 Output Total 400 Balance 683 - Medications Medications: Current Medications Albuterol/Ipratropium (Duoneb 3 Mg/0.5 Mg (3 Ml) Ud) 3 ml INH RQ6 [facility] Last Admin: 08/04/18 13:10 Dose: Not Given Bacitracin (Bacitracin) 1 ea TOP BID [facility] Stop: 08/07/18 20:01 Last Admin: 08/03/18 17:09 Dose: 1 ea Epoetin Morales (Procrit) 10,000 unit IV TTS [facility] Last Admin: 08/04/18 12:49 Dose: 10,000 unit Ergocalciferol (Drisdol 50,000 Intl Units Cap) 1 cap PO Q7D [facility] Last Admin: 08/02/18 14:42 Dose: 1 cap Ferrous Gluconate (Fergon) 324 mg PO TID [facility] Last Admin: 08/03/18 17:13 Dose: 324 mg Heparin Sodium (Porcine) (Heparin) 5,000 units SC Q8 [facility] Meropenem 500 mg/ Sodium (Chloride) 100 mls @ 100 mls/hr IVPB Q8H [facility]; Protocol Last Admin: 08/04/18 01:10 Dose: 100 mls/hr Methylprednisolone (Solu-Medrol) 40 mg IVP Q12H [facility] Last Admin: 08/03/18 21:26 Dose: 40 mg Pantoprazole Sodium (Protonix Susp) 40 mg PO 0600 [facility] Last Admin: 08/03/18 05:38 Dose: 40 mg Vitamin B Complex/Vit C/Folic Acid (Nephro-Fortino) 1 tab PO 0800 [facility] Last Admin: 08/04/18 08:53 Dose: Not Given - Labs Labs: 08/04/18 06:30 08/04/18 06:30 PT 12.6 SECONDS (9.7-12.2) H 08/03/18 14:50 INR 1.2 08/03/18 14:50 APTT 32 SECONDS (21-34) 08/03/18 14:50 - Constitutional Appears: Well, No Acute Distress - Neck Exam Neck Exam: Full ROM, Normal Inspection - Respiratory Exam Respiratory Exam: NORMAL BREATHING PATTERN - Cardiovascular Exam Additional comments: +radial pulse - Extremities Exam Additional comments: sensaiton intact +ROm wrist/fingers no ecchymosis - Neurological Exam Neurological Exam: Alert, Awake - Psychiatric Exam Psychiatric exam: Normal Affect, Normal Mood - Skin Skin Exam: Dry, Intact, Normal Color, Warm Assessment and Plan (1) Closed fracture of right proximal humerus Assessment & Plan: per son, this fracture is over a year old no orthopedic intervention planned during this admission, also son refuses any intervention on shoulder at this time patient can follow up when stable as an outpatient if she desires any intervention. Patient and son verbalized understanding that the bone is displaced and has not healed d/w Dr. Becker, agrees with above Status: Acute
--- NOTE | 2018-08-04 16:32 | CP.CCUPN ---
Addendum entered and electronically signed by Orestes Hernandez DO 08/04/18 19:02: dialysis cath removed Original Note: <Orestes Hernandez - Last Filed: 08/04/18 19:02> CCU Subjective - Physician Review Subjective (Free Text): Pt seen and examined at bedside. pt extubated today.Pt to get permacath. Pt denies CP, SOB, fc nv CCU Objective - Vital Signs / Intake & Output Intake and Output (Last 8hrs): Intake & Output 08/04/18 08/04/18 08/04/18 06:59 14:59 22:59 Intake Total 550 Output Total 400 Balance 150 Weight 163 lb Intake: Intake, IV Amount 100 Right Femoral 100 Tube Feeding 450 Output: Urine 400 Urethral (White) 400 Other: # Bowel Movements 1 - Physical Exam Head: Positive for: Atraumatic, Normocephalic Pupils: Positive for: PERRL Extroacular Muscles: Positive for: EOMI Mouth: Positive for: Moist Mucous Membranes Pharnyx: Positive for: Uvular Deviation Nose (Internal): Positive for: No Active Bleeding Upper Extremity: Positive for: Tenderness (RUE), Other (mid humerus shaft crepitus w/ passive ROM ) Lower Extremity: Positive for: Normal Inspection Neurological: Positive for: CN II-XII Intact Skin: Positive for: Warm, Dry Psychiatric: Positive for: Oriented x 3 - Medications Active Medications: Active Medications Generic Name Dose Route Start Last Admin Trade Name Freq PRN Reason Stop Dose Admin Albuterol/Ipratropium 3 ml 08/01/18 02:00 08/04/18 13:10 Duoneb 3 Mg/0.5 Mg (3 Ml) Ud INH Not Given RQ6 JOSE Bacitracin 1 ea 07/31/18 20:00 08/03/18 17:09 Bacitracin TOP 08/07/18 20:01 1 ea BID JOSE Administration Epoetin Morales 10,000 unit 08/02/18 13:00 08/04/18 12:49 Procrit IV 10,000 unit TTS JOSE Administration Ergocalciferol 1 cap 08/02/18 14:15 08/02/18 14:42 Drisdol 50,000 Intl Units Cap PO 1 cap Q7D JOSE Administration Ferrous Gluconate 324 mg 08/02/18 14:00 08/03/18 17:13 Fergon PO 324 mg TID JOSE Administration Heparin Sodium (Porcine) 5,000 units 08/04/18 14:00 Heparin SC Q8 JOSE Meropenem 500 mg/ Sodium 100 mls @ 100 mls/hr 08/04/18 02:00 08/04/18 01:10 Chloride IVPB 100 mls/hr Q8H JOSE Administration Protocol Methylprednisolone 40 mg 08/01/18 10:00 08/03/18 21:26 Solu-Medrol IVP 40 mg Q12H JOSE Administration Pantoprazole Sodium 40 mg 08/01/18 06:00 08/03/18 05:38 Protonix Susp PO 40 mg 0600 [facility] Administration Vitamin B Complex/Vit C/Folic Acid 1 tab 08/03/18 08:00 08/04/18 08:53 Nephro-Fortino PO Not Given 0800 [facility] - Patient Studies Lab Studies: Microbiology Studies 07/31/18 15:20 S.aureus & Coag-Neg Staph PNA FISH - Final Blood Blood Culture - Final Staphylococcus Aureus Gram Stain - Final 07/31/18 16:00 Blood Culture - Preliminary Blood NO GROWTH AFTER 3 DAYS Lab Studies 08/04/18 08/04/18 08/04/18 Range/Units 13:40 06:30 06:30 WBC 12.0 H (4.8-10.8) K/uL RBC 2.55 L (3.80-5.20) Mil/uL Hgb 8.0 L (11.0-16.0) g/dL Hct 23.3 L (34.0-47.0) % MCV 91.1 (81.0-99.0) fL MCH 31.4 H (27.0-31.0) pg MCHC 34.5 (33.0-37.0) g/dL RDW 14.8 H (11.5-14.5) % Plt Count 127 L D (130-400) K/uL MPV 9.2 (7.2-11.7) fL Neut % (Auto) 87.1 H (50.0-75.0) % Lymph % (Auto) 8.8 L (20.0-40.0) % Tripp % (Auto) 3.1 (0.0-10.0) % Eos % (Auto) 0.4 (0.0-4.0) % Baso % (Auto) 0.6 (0.0-2.0) % Neut # (Auto) 10.5 H (1.8-7.0) K/uL Lymph # (Auto) 1.1 (1.0-4.3) K/uL Tripp # (Auto) 0.4 (0.0-0.8) K/uL Eos # (Auto) 0.0 (0.0-0.7) K/uL Baso # (Auto) 0.1 (0.0-0.2) K/uL Neutrophils % (Manual) 91 H (50-75) % Lymphocytes % (Manual) 5 L (20-40) % Monocytes % (Manual) 4 (0-10) % Nucleated RBC % 2 H (0-0) % Platelet Estimate Slightly decreased L (NORMAL) Polychromasia Slight Hypochromasia (manual) Slight Poikilocytosis (manual Slight Anisocytosis (manual) Slight Microcytosis (manual) Slight Puncture Site Rra pCO2 30 L (35-45) mm/Hg pO2 84 (80-100) mm/Hg HCO3 28.0 (21-28) mmol/L ABG pH 7.55 H (7.35-7.45) ABG Total CO2 27.1 (22-28) mmol/L ABG O2 Saturation 99.0 H (95-98) % ABG Base Excess 3.9 H (-2.0-3.0) mmol/L ABG Hemoglobin 8.6 L (11.7-17.4) g/dL ABG Carboxyhemoglobin 2.2 H (0.5-1.5) % POC ABG HHb (Measured) 1.0 (0.0-5.0) % ABG Methemoglobin 1.3 (0.0-3.0) % Yoan Test Na A-a O2 Difference 57.0 mm/Hg Respiratory Index 0.7 Hgb O2 Saturation 95.5 (95.0-98.0) % Vent Mode Cpap/ps Mechanical Rate FiO2 25.0 % Tidal Volume PEEP Pressure Support 12 Crit Value Called To Crit Value Called By Crit Value Read Back Blood Gas Notified Time Sodium 146 (132-148) mmol/L Potassium 3.5 L (3.6-5.2) mmol/L Chloride 112 H (98-107) mmol/L Carbon Dioxide 21 L (22-30) mmol/L Anion Gap 17 (10-20) BUN 62 H (7-17) mg/dL Creatinine 3.9 H (0.7-1.2) mg/dL Est GFR ( Amer) 14 Est GFR (Non-Af Amer) 12 POC Glucose (mg/dL) (65-110) mg/dL Random Glucose 194 H (65-105) mg/dL Calcium 8.5 L (8.6-10.4) mg/dl Total Bilirubin 1.0 (0.2-1.3) mg/dL AST 44 H D (14-36) U/L ALT 40 (9-52) U/L Alkaline Phosphatase 44 (38-126) U/L Total Protein 5.7 L (6.3-8.3) g/dL Albumin 2.8 L (3.5-5.0) g/dL Globulin 2.9 (2.2-3.9) gm/dL Albumin/Globulin Ratio 1.0 (1.0-2.1) Ur Random Creatinine (20-320) mg/dL U Random Total Protein (21-161) mg/g creat Urine Total Volume mg/dL Microalb/Creat Ratio (<30) LINDSEY Nuclear Membr Pat (Negative) Double Strand DNA Ab IU/mL Tot [place]/Lambda Ratio (1.29-2.55) [place] Light Chain Anal (176-443) mg/dL Lambda Light Chain Anal (91-240) mg/dL Blood Type Blood Type Confirm Antibody Screen 08/04/18 08/03/18 08/03/18 Range/Units 04:30 17:16 13:56 WBC (4.8-10.8) K/uL RBC (3.80-5.20) Mil/uL Hgb (11.0-16.0) g/dL Hct (34.0-47.0) % MCV (81.0-99.0) fL MCH (27.0-31.0) pg MCHC (33.0-37.0) g/dL RDW (11.5-14.5) % Plt Count (130-400) K/uL MPV (7.2-11.7) fL Neut % (Auto) (50.0-75.0) % Lymph % (Auto) (20.0-40.0) % Tripp % (Auto) (0.0-10.0) % Eos % (Auto) (0.0-4.0) % Baso % (Auto) (0.0-2.0) % Neut # (Auto) (1.8-7.0) K/uL Lymph # (Auto) (1.0-4.3) K/uL Tripp # (Auto) (0.0-0.8) K/uL Eos # (Auto) (0.0-0.7) K/uL Baso # (Auto) (0.0-0.2) K/uL Neutrophils % (Manual) (50-75) % Lymphocytes % (Manual) (20-40) % Monocytes % (Manual) (0-10) % Nucleated RBC % (0-0) % Platelet Estimate (NORMAL) Polychromasia Hypochromasia (manual) Poikilocytosis (manual Anisocytosis (manual) Microcytosis (manual) Puncture Site Rr pCO2 21 L (35-45) mm/Hg pO2 223 H (80-100) mm/Hg HCO3 21.0 (21-28) mmol/L ABG pH 7.52 H (7.35-7.45) ABG Total CO2 17.7 L (22-28) mmol/L ABG O2 Saturation 100.9 H (95-98) % ABG Base Excess -5.1 L (-2.0-3.0) mmol/L ABG Hemoglobin 6.5 L (11.7-17.4) g/dL ABG Carboxyhemoglobin 2.4 H (0.5-1.5) % POC ABG HHb (Measured) -0.9 L (0.0-5.0) % ABG Methemoglobin 1.0 (0.0-3.0) % Yoan Test Pos A-a O2 Difference 36.0 mm/Hg Respiratory Index 0.2 Hgb O2 Saturation 97.5 (95.0-98.0) % Vent Mode Prvc Mechanical Rate 20 FiO2 40.0 % Tidal Volume 450 PEEP 5 Pressure Support Crit Value Called To Lonnie gil/rn Crit Value Called By Michael velásquez/rt Crit Value Read Back Y Blood Gas Notified Time 445 Sodium (132-148) mmol/L Potassium (3.6-5.2) mmol/L Chloride (98-107) mmol/L Carbon Dioxide (22-30) mmol/L Anion Gap (10-20) BUN (7-17) mg/dL Creatinine (0.7-1.2) mg/dL Est GFR ( Amer) Est GFR (Non-Af Amer) POC Glucose (mg/dL) 151 H (65-110) mg/dL Random Glucose (65-105) mg/dL Calcium (8.6-10.4) mg/dl Total Bilirubin (0.2-1.3) mg/dL AST (14-36) U/L ALT (9-52) U/L Alkaline Phosphatase (38-126) U/L Total Protein (6.3-8.3) g/dL Albumin (3.5-5.0) g/dL Globulin (2.2-3.9) gm/dL Albumin/Globulin Ratio (1.0-2.1) Ur Random Creatinine (20-320) mg/dL U Random Total Protein (21-161) mg/g creat Urine Total Volume mg/dL Microalb/Creat Ratio (<30) LINDSEY Nuclear Membr Pat (Negative) Double Strand DNA Ab IU/mL Tot [place]/Lambda Ratio (1.29-2.55) [place] Light Chain Anal (176-443) mg/dL Lambda Light Chain Anal (91-240) mg/dL Blood Type O POSITIVE Blood Type Confirm O POSITIVE Antibody Screen Negative 08/03/18 08/03/18 08/02/18 Range/Units 06:28 06:20 05:49 WBC (4.8-10.8) K/uL RBC (3.80-5.20) Mil/uL Hgb (11.0-16.0) g/dL Hct (34.0-47.0) % MCV (81.0-99.0) fL MCH (27.0-31.0) pg MCHC (33.0-37.0) g/dL RDW (11.5-14.5) % Plt Count (130-400) K/uL MPV (7.2-11.7) fL Neut % (Auto) (50.0-75.0) % Lymph % (Auto) (20.0-40.0) % Tripp % (Auto) (0.0-10.0) % Eos % (Auto) (0.0-4.0) % Baso % (Auto) (0.0-2.0) % Neut # (Auto) (1.8-7.0) K/uL Lymph # (Auto) (1.0-4.3) K/uL Tripp # (Auto) (0.0-0.8) K/uL Eos # (Auto) (0.0-0.7) K/uL Baso # (Auto) (0.0-0.2) K/uL Neutrophils % (Manual) (50-75) % Lymphocytes % (Manual) (20-40) % Monocytes % (Manual) (0-10) % Nucleated RBC % (0-0) % Platelet Estimate (NORMAL) Polychromasia Hypochromasia (manual) Poikilocytosis (manual Anisocytosis (manual) Microcytosis (manual) Puncture Site pCO2 (35-45) mm/Hg pO2 (80-100) mm/Hg HCO3 (21-28) mmol/L ABG pH (7.35-7.45) ABG Total CO2 (22-28) mmol/L ABG O2 Saturation (95-98) % ABG Base Excess (-2.0-3.0) mmol/L ABG Hemoglobin (11.7-17.4) g/dL ABG Carboxyhemoglobin (0.5-1.5) % POC ABG HHb (Measured) (0.0-5.0) % ABG Methemoglobin (0.0-3.0) % Yoan Test A-a O2 Difference mm/Hg Respiratory Index Hgb O2 Saturation (95.0-98.0) % Vent Mode Mechanical Rate FiO2 % Tidal Volume PEEP Pressure Support Crit Value Called To Crit Value Called By Crit Value Read Back Blood Gas Notified Time Sodium (132-148) mmol/L Potassium (3.6-5.2) mmol/L Chloride (98-107) mmol/L Carbon Dioxide (22-30) mmol/L Anion Gap (10-20) BUN (7-17) mg/dL Creatinine (0.7-1.2) mg/dL Est GFR ( Amer) Est GFR (Non-Af Amer) POC Glucose (mg/dL) (65-110) mg/dL Random Glucose (65-105) mg/dL Calcium (8.6-10.4) mg/dl Total Bilirubin (0.2-1.3) mg/dL AST (14-36) U/L ALT (9-52) U/L Alkaline Phosphatase (38-126) U/L Total Protein (6.3-8.3) g/dL Albumin (3.5-5.0) g/dL Globulin (2.2-3.9) gm/dL Albumin/Globulin Ratio (1.0-2.1) Ur Random Creatinine 162 (20-320) mg/dL U Random Total Protein 974 H (21-161) mg/g creat Urine Total Volume 9.0 mg/dL Microalb/Creat Ratio 55 H (<30) LINDSEY Nuclear Membr Pat (Negative) Double Strand DNA Ab <1 IU/mL Tot [place]/Lambda Ratio 2.29 (1.29-2.55) [place] Light Chain Anal 240 (176-443) mg/dL Lambda Light Chain Anal 105 (91-240) mg/dL Blood Type Blood Type Confirm Antibody Screen 08/01/18 Range/Units 15:22 WBC (4.8-10.8) K/uL RBC (3.80-5.20) Mil/uL Hgb (11.0-16.0) g/dL Hct (34.0-47.0) % MCV (81.0-99.0) fL MCH (27.0-31.0) pg MCHC (33.0-37.0) g/dL RDW (11.5-14.5) % Plt Count (130-400) K/uL MPV (7.2-11.7) fL Neut % (Auto) (50.0-75.0) % Lymph % (Auto) (20.0-40.0) % Tripp % (Auto) (0.0-10.0) % Eos % (Auto) (0.0-4.0) % Baso % (Auto) (0.0-2.0) % Neut # (Auto) (1.8-7.0) K/uL Lymph # (Auto) (1.0-4.3) K/uL Tripp # (Auto) (0.0-0.8) K/uL Eos # (Auto) (0.0-0.7) K/uL Baso # (Auto) (0.0-0.2) K/uL Neutrophils % (Manual) (50-75) % Lymphocytes % (Manual) (20-40) % Monocytes % (Manual) (0-10) % Nucleated RBC % (0-0) % Platelet Estimate (NORMAL) Polychromasia Hypochromasia (manual) Poikilocytosis (manual Anisocytosis (manual) Microcytosis (manual) Puncture Site pCO2 (35-45) mm/Hg pO2 (80-100) mm/Hg HCO3 (21-28) mmol/L ABG pH (7.35-7.45) ABG Total CO2 (22-28) mmol/L ABG O2 Saturation (95-98) % ABG Base Excess (-2.0-3.0) mmol/L ABG Hemoglobin (11.7-17.4) g/dL ABG Carboxyhemoglobin (0.5-1.5) % POC ABG HHb (Measured) (0.0-5.0) % ABG Methemoglobin (0.0-3.0) % Yoan Test A-a O2 Difference mm/Hg Respiratory Index Hgb O2 Saturation (95.0-98.0) % Vent Mode Mechanical Rate FiO2 % Tidal Volume PEEP Pressure Support Crit Value Called To Crit Value Called By Crit Value Read Back Blood Gas Notified Time Sodium (132-148) mmol/L Potassium (3.6-5.2) mmol/L Chloride (98-107) mmol/L Carbon Dioxide (22-30) mmol/L Anion Gap (10-20) BUN (7-17) mg/dL Creatinine (0.7-1.2) mg/dL Est GFR ( Amer) Est GFR (Non-Af Amer) POC Glucose (mg/dL) (65-110) mg/dL Random Glucose (65-105) mg/dL Calcium (8.6-10.4) mg/dl Total Bilirubin (0.2-1.3) mg/dL AST (14-36) U/L ALT (9-52) U/L Alkaline Phosphatase (38-126) U/L Total Protein (6.3-8.3) g/dL Albumin (3.5-5.0) g/dL Globulin (2.2-3.9) gm/dL Albumin/Globulin Ratio (1.0-2.1) Ur Random Creatinine (20-320) mg/dL U Random Total Protein (21-161) mg/g creat Urine Total Volume mg/dL Microalb/Creat Ratio (<30) LINDSEY Nuclear Membr Pat Negative (Negative) Double Strand DNA Ab IU/mL Tot [place]/Lambda Ratio (1.29-2.55) [place] Light Chain Anal (176-443) mg/dL Lambda Light Chain Anal (91-240) mg/dL Blood Type Blood Type Confirm Antibody Screen Laboratory Results - last 24 hr 08/01/18 08/02/18 08/03/18 15:22 05:49 06:20 WBC RBC Hgb Hct MCV MCH MCHC RDW Plt Count MPV Neut % (Auto) Lymph % (Auto) Tripp % (Auto) Eos % (Auto) Baso % (Auto) Neut # (Auto) Lymph # (Auto) Tripp # (Auto) Eos # (Auto) Baso # (Auto) Neutrophils % (Manual) Lymphocytes % (Manual) Monocytes % (Manual) Nucleated RBC % Platelet Estimate Polychromasia Hypochromasia (manual) Poikilocytosis (manual Anisocytosis (manual) Microcytosis (manual) Puncture Site pCO2 pO2 HCO3 ABG pH ABG Total CO2 ABG O2 Saturation ABG Base Excess ABG Hemoglobin ABG Carboxyhemoglobin POC ABG HHb (Measured) ABG Methemoglobin Yoan Test A-a O2 Difference Respiratory Index Hgb O2 Saturation Vent Mode Mechanical Rate FiO2 Tidal Volume PEEP Pressure Support Crit Value Called To Crit Value Called By Crit Value Read Back Blood Gas Notified Time Sodium Potassium Chloride Carbon Dioxide Anion Gap BUN Creatinine Est GFR ( Amer) Est GFR (Non-Af Amer) POC Glucose (mg/dL) Random Glucose Calcium Total Bilirubin AST ALT Alkaline Phosphatase Total Protein Albumin Globulin Albumin/Globulin Ratio Ur Random Creatinine 162 U Random Total Protein Urine Total Volume 9.0 Microalb/Creat Ratio 55 H LINDSEY Nuclear Membr Pat Negative Double Strand DNA Ab <1 Tot [place]/Lambda Ratio 2.29 [place] Light Chain Anal 240 Lambda Light Chain Anal 105 Blood Type Blood Type Confirm Antibody Screen 08/03/18 08/03/18 08/03/18 06:28 13:56 17:16 WBC RBC Hgb Hct MCV MCH MCHC RDW Plt Count MPV Neut % (Auto) Lymph % (Auto) Tripp % (Auto) Eos % (Auto) Baso % (Auto) Neut # (Auto) Lymph # (Auto) Tripp # (Auto) Eos # (Auto) Baso # (Auto) Neutrophils % (Manual) Lymphocytes % (Manual) Monocytes % (Manual) Nucleated RBC % Platelet Estimate Polychromasia Hypochromasia (manual) Poikilocytosis (manual Anisocytosis (manual) Microcytosis (manual) Puncture Site pCO2 pO2 HCO3 ABG pH ABG Total CO2 ABG O2 Saturation ABG Base Excess ABG Hemoglobin ABG Carboxyhemoglobin POC ABG HHb (Measured) ABG Methemoglobin Yoan Test A-a O2 Difference Respiratory Index Hgb O2 Saturation Vent Mode Mechanical Rate FiO2 Tidal Volume PEEP Pressure Support Crit Value Called To Crit Value Called By Crit Value Read Back Blood Gas Notified Time Sodium Potassium Chloride Carbon Dioxide Anion Gap BUN Creatinine Est GFR ( Amer) Est GFR (Non-Af Amer) POC Glucose (mg/dL) 151 H Random Glucose Calcium Total Bilirubin AST ALT Alkaline Phosphatase Total Protein Albumin Globulin Albumin/Globulin Ratio Ur Random Creatinine U Random Total Protein 974 H Urine Total Volume Microalb/Creat Ratio LINDSEY Nuclear Membr Pat Double Strand DNA Ab Tot [place]/Lambda Ratio [place] Light Chain Anal Lambda Light Chain Anal Blood Type O POSITIVE Blood Type Confirm O POSITIVE Antibody Screen Negative 08/04/18 08/04/18 08/04/18 04:30 06:30 06:30 WBC 12.0 H RBC 2.55 L Hgb 8.0 L Hct 23.3 L MCV 91.1 MCH 31.4 H MCHC 34.5 RDW 14.8 H Plt Count 127 L D MPV 9.2 Neut % (Auto) 87.1 H Lymph % (Auto) 8.8 L Tripp % (Auto) 3.1 Eos % (Auto) 0.4 Baso % (Auto) 0.6 Neut # (Auto) 10.5 H Lymph # (Auto) 1.1 Tripp # (Auto) 0.4 Eos # (Auto) 0.0 Baso # (Auto) 0.1 Neutrophils % (Manual) 91 H Lymphocytes % (Manual) 5 L Monocytes % (Manual) 4 Nucleated RBC % 2 H Platelet Estimate Slightly decreased L Polychromasia Slight Hypochromasia (manual) Slight Poikilocytosis (manual Slight Anisocytosis (manual) Slight Microcytosis (manual) Slight Puncture Site Rr pCO2 21 L pO2 223 H HCO3 21.0 ABG pH 7.52 H ABG Total CO2 17.7 L ABG O2 Saturation 100.9 H ABG Base Excess -5.1 L ABG Hemoglobin 6.5 L ABG Carboxyhemoglobin 2.4 H POC ABG HHb (Measured) -0.9 L ABG Methemoglobin 1.0 Yoan Test Pos A-a O2 Difference 36.0 Respiratory Index 0.2 Hgb O2 Saturation 97.5 Vent Mode Prvc Mechanical Rate 20 FiO2 40.0 Tidal Volume 450 PEEP 5 Pressure Support Crit Value Called To Lonnie gil/rn Crit Value Called By Michael velásquez/rt Crit Value Read Back Y Blood Gas Notified Time 445 Sodium 146 Potassium 3.5 L Chloride 112 H Carbon Dioxide 21 L Anion Gap 17 BUN 62 H Creatinine 3.9 H Est GFR ( Amer) 14 Est GFR (Non-Af Amer) 12 POC Glucose (mg/dL) Random Glucose 194 H Calcium 8.5 L Total Bilirubin 1.0 AST 44 H D ALT 40 Alkaline Phosphatase 44 Total Protein 5.7 L Albumin 2.8 L Globulin 2.9 Albumin/Globulin Ratio 1.0 Ur Random Creatinine U Random Total Protein Urine Total Volume Microalb/Creat Ratio LINDSEY Nuclear Membr Pat Double Strand DNA Ab Tot [place]/Lambda Ratio [place] Light Chain Anal Lambda Light Chain Anal Blood Type Blood Type Confirm Antibody Screen 08/04/18 13:40 WBC RBC Hgb Hct MCV MCH MCHC RDW Plt Count MPV Neut % (Auto) Lymph % (Auto) Tripp % (Auto) Eos % (Auto) Baso % (Auto) Neut # (Auto) Lymph # (Auto) Tripp # (Auto) Eos # (Auto) Baso # (Auto) Neutrophils % (Manual) Lymphocytes % (Manual) Monocytes % (Manual) Nucleated RBC % Platelet Estimate Polychromasia Hypochromasia (manual) Poikilocytosis (manual Anisocytosis (manual) Microcytosis (manual) Puncture Site Rra pCO2 30 L pO2 84 HCO3 28.0 ABG pH 7.55 H ABG Total CO2 27.1 ABG O2 Saturation 99.0 H ABG Base Excess 3.9 H ABG Hemoglobin 8.6 L ABG Carboxyhemoglobin 2.2 H POC ABG HHb (Measured) 1.0 ABG Methemoglobin 1.3 Yoan Test Na A-a O2 Difference 57.0 Respiratory Index 0.7 Hgb O2 Saturation 95.5 Vent Mode Cpap/ps Mechanical Rate FiO2 25.0 Tidal Volume PEEP Pressure Support 12 Crit Value Called To Crit Value Called By Crit Value Read Back Blood Gas Notified Time Sodium Potassium Chloride Carbon Dioxide Anion Gap BUN Creatinine Est GFR ( Amer) Est GFR (Non-Af Amer) POC Glucose (mg/dL) Random Glucose Calcium Total Bilirubin AST ALT Alkaline Phosphatase Total Protein Albumin Globulin Albumin/Globulin Ratio Ur Random Creatinine U Random Total Protein Urine Total Volume Microalb/Creat Ratio LINDSEY Nuclear Membr Pat Double Strand DNA Ab Tot [place]/Lambda Ratio [place] Light Chain Anal Lambda Light Chain Anal Blood Type Blood Type Confirm Antibody Screen Fingerstick Blood Sugar Results: 101 Review of Systems - Review of Systems All systems: reviewed and no additional remarkable complaints except Review of Systems: per subjective Critical Care Progress Note - Nutrition Nutrition: Nutrition Category Date Time Status NPO Diet [DIET] Diets 08/05/18 Breakfast Active Assessment/Plan - Assessment and Plan (Free Text) Assessment: 62yo F. PMHx HTN, hyperlipidemia, and depression. p/w acute respiratory failure, in acute renal failure in severe metabolic acidosis. s/p shiley cath with Dr Casanova Neuro: AAOx3 -monitor mental status MSK: R Humerus Fracture Consulting Ortho for R upper ext 08/02 UE Xray - right displaced proximal humeral shaft fracture seen on admission CXR 07/31 unclear chronicity, unclear if pathological in nature need CT of right humerus when patient stable/extubated sling for now banks brace ordered as per Dr. Becker no surgery planned at this time, will attempt conservative mgmt as per Dr. Becker, patient septic and medically unstable Pulm: Hypoxic Respiratory Failure -pt fiO2 requirement resolving below 50 -pt follows commands -offsedation-extubated with good cough reflex Respiratory Alkalosis - ABG CO2 low this AM 17. afternoon CO2 27 improving - mask non rebreather - monitor ABG in AM CV: -hemodynamically stable Hem: Monitor H&H Renal: Chronic Renal Failure -Permacath tmrw with Dr Casanova for HD -HAGMA with RBOIN, requiring emergent dialysis. -Dr Triana consulted follow recs: plan for next HD today and then likely tomorrow Maintain hemodynamics stable. Avoid hypotension. Patient not on ACEI/ARB due to recent ROBIN Monitor Input/Output, daily weights and renal function with basic metabolic panel started Fe, MVI, epogen and weekly Vit D PRBC as needed Check urine analysis, spot protein/creatinine, albumin/creatinine ratio. Pending renal sonogram. CPK Check GN work up as C3, C4, LINDSEY, Anti dsDNA, ASO titers, ANCA (MPO and DC-3), Anti GBM antibody, HIV Anemia work up with TSAT/Ferritin/Vitamin B12/folate, serum protein electrophoresis with immunofixation, serum free light chain assay ([place]/ Lambda) Check for 25-OH vitamin D, iPTH, phosphorus level. Endo: -no acute issues -montitor Glucose GI: -NPO past midnight -extubated stop tube feeds ID: Staph A Bacteremia -resolved. BC neg x 4 days EColi UTI -IV Merrem -Monitor CBC -Monitor Vitals DVT proph - heparin sq GI proph - protonix white for strict I/O's during acute illness Code status - full code <Kalie Marc M - Last Filed: 08/06/18 11:46> CCU Subjective - Physician Review Critical Care Time Spent (in minutes): 55 CCU Objective - Vital Signs / Intake & Output Vital Signs (Last 4 hours): Vital Signs Temp Pulse Resp BP Pulse Ox 08/06/18 08:42 92 H 25 H 158/100 H 95 08/06/18 08:00 98.8 F 80 23 95 08/06/18 07:52 84 24 93 L 08/06/18 07:47 89 25 H 159/104 H 94 L Intake and Output (Last 8hrs): Intake & Output 08/05/18 08/06/18 08/06/18 22:59 06:59 14:59 Intake Total 680 590 20 Output Total 1 Balance 679 590 20 Weight 144 lb 3.2 oz Intake: Intake, IV Amount 200 100 20 Left Forearm 10 Right Forearm 10 Right Wrist 200 100 Oral 480 490 Output: Urine/Stool Mix 1 Other: # Bowel Movements 0 - Medications Active Medications: Active Medications Generic Name Dose Route Start Last Admin Trade Name Freq PRN Reason Stop Dose Admin Bacitracin 1 ea 07/31/18 20:00 08/06/18 08:59 Bacitracin TOP 08/07/18 20:01 1 ea BID JOSE Administration Epoetin Morales 10,000 unit 08/06/18 10:00 Procrit SC 08/09/18 10:16 TTS JOSE Ergocalciferol 1 cap 08/02/18 14:15 08/02/18 14:42 Drisdol 50,000 Intl Units Cap PO 1 cap Q7D JOSE Administration Ferrous Gluconate 324 mg 08/02/18 14:00 08/06/18 09:00 Fergon PO 324 mg TID JOSE Administration Heparin Sodium (Porcine) 5,000 units 08/04/18 14:00 08/06/18 05:21 Heparin SC 5,000 units Q8 JOSE Administration Meropenem 500 mg/ Sodium 100 mls @ 100 mls/hr 08/04/18 02:00 08/06/18 08:59 Chloride IVPB 100 mls/hr Q8H JOSE Administration Protocol Methylprednisolone 40 mg 08/01/18 10:00 08/06/18 09:00 Solu-Medrol IVP 40 mg Q12H JOSE Administration Pantoprazole Sodium 40 mg 08/01/18 06:00 08/06/18 05:21 Protonix Susp PO 40 mg 0600 JOSE Administration Vitamin B Complex/Vit C/Folic Acid 1 tab 08/03/18 08:00 08/06/18 07:43 Nephro-Fortino PO 1 tab 0800 JOSE Administration - Patient Studies Lab Studies: Microbiology Studies 07/31/18 16:00 Blood Culture - Final Blood NO GROWTH AFTER 5 DAYS Gram Stain - Final TEST NOT PERFORMED Lab Studies 08/05/18 08/03/18 Range/Units 11:49 06:20 POC Glucose (mg/dL) 222 H (65-110) mg/dL Proteinase 3 (PR3) <1.0 (<1.0) AI Myeloperoxidase Ab <1.0 (<1.0) AI Laboratory Results - last 24 hr 08/03/18 08/05/18 06:20 11:49 POC Glucose (mg/dL) 222 H Proteinase 3 (PR3) <1.0 Myeloperoxidase Ab <1.0 Critical Care Progress Note - Nutrition Nutrition: Nutrition Category Date Time Status Renal Diet [DIET] Diets 08/05/18 Breakfast Active Assessment/Plan - Assessment and Plan (Free Text) Plan: Agree with above note docuemented by resident. [facility] has trasncribed my clinical findings and management Patient seen and examined at bedside. Patient intubated not on pressors. ROS limited as patient intubated vitals reviewed labs reveiwed allergies reviewed medications reviewed A/P -hypoxic respiratory failure:continue ventilation to keep spo2 >92 and ph b/w 7.35-7.45, continue bronchodilators, tolerating CPAP, RSBI 30s, will extubate, good cough reflex -Chronic diastolic heart failure/CAD: continue to monitor, avoid fluid overloaded states, contineu asa, statin and av anai nora, cardiology follow up -lobar PNA: currently on rojelio + vanco per level -COPD: continue bronchodilators and steroids -dvt ppx heparin SQ -pud rx protonix -Prognosis guarded as multiple diagnostic tests pending. Patient remains critical cc time 55 minutes - Date & Time Date: 08/04/18 Time: 20:00
--- NOTE | 2018-08-04 17:39 | CP.PCM.PN ---
Subjective - Date & Time of Evaluation Date of Evaluation: 08/04/18 Time of Evaluation: 07:00 - Subjective Subjective: admitted with ams and fever found to have sepsis, ROBIN , pneumonia, MSSA bacteremia and ESBL + E Coli UTI extubated, afebrile still confused on Merrem Objective - Vital Signs/Intake and Output Vital Signs (last 24 hours): Temp Pulse Resp BP Pulse Ox 98.1 F 74 24 137/81 92 L 08/04/18 12:00 08/04/18 17:16 08/04/18 17:16 08/04/18 17:16 08/04/18 17:16 Intake and Output: 08/04/18 08/04/18 06:59 18:59 Intake Total 1083 200 Output Total 400 100 Balance 683 100 - Medications Medications: Current Medications Albuterol/Ipratropium (Duoneb 3 Mg/0.5 Mg (3 Ml) Ud) 3 ml INH RQ6 [facility] Last Admin: 08/04/18 13:10 Dose: Not Given Bacitracin (Bacitracin) 1 ea TOP BID [facility] Stop: 08/07/18 20:01 Last Admin: 08/03/18 17:09 Dose: 1 ea Epoetin Morales (Procrit) 10,000 unit IV TTS [facility] Last Admin: 08/04/18 12:49 Dose: 10,000 unit Ergocalciferol (Drisdol 50,000 Intl Units Cap) 1 cap PO Q7D [facility] Last Admin: 08/02/18 14:42 Dose: 1 cap Ferrous Gluconate (Fergon) 324 mg PO TID [facility] Last Admin: 08/04/18 17:26 Dose: Not Given Heparin Sodium (Porcine) (Heparin) 5,000 units SC Q8 [facility] Meropenem 500 mg/ Sodium (Chloride) 100 mls @ 100 mls/hr IVPB Q8H [facility]; Protocol Last Admin: 08/04/18 01:10 Dose: 100 mls/hr Methylprednisolone (Solu-Medrol) 40 mg IVP Q12H [facility] Last Admin: 08/03/18 21:26 Dose: 40 mg Pantoprazole Sodium (Protonix Susp) 40 mg PO 0600 [facility] Last Admin: 08/03/18 05:38 Dose: 40 mg Vitamin B Complex/Vit C/Folic Acid (Nephro-Fortino) 1 tab PO 0800 [facility] Last Admin: 08/04/18 08:53 Dose: Not Given - Labs Labs: 08/04/18 06:30 08/04/18 06:30 PT 12.6 SECONDS (9.7-12.2) H 08/03/18 14:50 INR 1.2 08/03/18 14:50 APTT 32 SECONDS (21-34) 08/03/18 14:50 - Constitutional Appears: Confused, Chronically Ill - Head Exam Head Exam: NORMOCEPHALIC - Eye Exam Eye Exam: PERRL - ENT Exam ENT Exam: Mucous Membranes Dry - Neck Exam Neck Exam: absent: Lymphadenopathy - Respiratory Exam Respiratory Exam: Decreased Breath Sounds - Cardiovascular Exam Cardiovascular Exam: REGULAR RHYTHM - GI/Abdominal Exam GI & Abdominal Exam: Distended. absent: Soft - Rectal Exam Rectal Exam: Deferred - Exam Exam: NORMAL INSPECTION - Extremities Exam Extremities Exam: absent: Pedal Edema - Back Exam Back Exam: absent: CVA tenderness (L), CVA tenderness (R) - Neurological Exam Neurological Exam: Altered - Psychiatric Exam Psychiatric exam: Depressed - Skin Skin Exam: Dry Additional comments: lesions noted on trunk and extremities Assessment and Plan (1) Acute kidney injury Status: Acute (2) Closed fracture of right proximal humerus Status: Acute (3) Metabolic acidosis Status: Acute (4) Respiratory failure Status: Acute (5) Rhabdomyolysis Status: Acute - Assessment and Plan (Free Text) Assessment: admitted with ams and fever found to have sepsis, ROBIN , pneumonia, MSSA bacteremia and ESBL + E Coli UTI extubated, afebrile still confused on Merrem consider Echo/ RIAN cont iv antibitics x 14 days min
[2018-08-04] MEDS: MethylPREDNISolone 40 mg Vial IVP SCH ×2 (18:25→22:09)
[2018-08-05] MEDS: Albuterol-Ipratrop 3 mg / 0.5 (3 ml) UD INH SCH ×4 (01:13→19:54)
[2018-08-05] MEDS: Meropenem 500 MG in Sodium Chloride 0.9% 100 ML IVPB SCH ×3 (02:34→18:10)
--- NOTE | 2018-08-05 04:47 | PN ---
DATE: 08/04/2018 SUBJECTIVE: The patient is a 62-year-old female. The patient was seen and examined on the ICU. Still intubated. I saw the patient in the morning, still confused, on Merrem, has swelling of the leg and was getting dialysis. PHYSICAL EXAMINATION: VITAL SIGNS: Temperature 98.1, pulse 74, respiratory rate 24, blood pressure 137/81, pulse oximetry 92. HEENT: Head, normocephalic and atraumatic. Eyes, PERRLA. Extraocular muscles intact. Conjunctivae clear. Nose patent. Mucous membranes moist. NECK: Supple. No carotid bruits, JVD, or thyromegaly. CHEST: Bilateral symmetrical. HEART: S1 and S2 positive. LUNGS: Clear to auscultation. ABDOMEN: Soft. Bowel sound present. No organomegaly. EXTREMITIES: Trace edema. NEUROLOGIC: The patient is awake and alert, but cannot talk because still intubated early in the morning. MEDICATIONS: Bacitracin, vitamin D, heparin, Merrem, Protonix, Solu-Medrol. LABORATORY DATA: White blood cells 12, hemoglobin 8, hematocrit 26.3, platelets 127. Sodium 146, potassium 3.5, BUN 62, creatinine 3.9, glucose 194, calcium 8.5. ASSESSMENT AND PLAN: Ms. Romy Feng is a 62-year-old lady with leukocytosis, anemia, thrombocytopenia, hypokaliemia, hyperchloremia, renal insufficiency, diabetes mellitus, hypocalcemia, getting dialysis three times a week, abnormal liver function tests, hypertriglyceridemia. Seen by Infectious Disease, Dr. Christophe Grant. The patient has sepsis, acute kidney injury, pneumonia, methicillin-susceptible Staphylococcus aureus bacteremia, extended-spectrum beta-lactamase plus Escherichia colli urinary tract infection, is on Merrem, metabolic acidosis, respiratory failure, rhabdomyolysis. The patient admitted with fever and altered mental status, found to have sepsis, acute kidney injury, pneumonia, methicillin-susceptible Staphylococcus aureus bacteremia and extended-spectrum beta-lactamase plus Escherichia colli urinary tract infection. According to the staff, the patient extubated in the evening. Still confused, on Merrem. Consider echocardiography and transesophageal echocardiography. Continue intravenous antibiotics for 14 days as per Neurology and as per Infectious Disease. Gastrointestinal and deep vein thrombosis prophylaxis. Repeat labs. We will follow up. Pina Montiel MD [facility]
[2018-08-05] MEDS: Pantoprazole 40 mg Susp UD PO SCH (05:51)
[2018-08-05 06:42] LABS: BASO % 0.4 % (0.0-2.0); HEMOGLOBIN 8.2 g/dL (11.0-16.0); LYMPH # 0.7 K/uL (1.0-4.3); LYMPH % 5.3 % (20.0-40.0); MEAN CELL VOLUME 92.8 fL (81.0-99.0); MEAN CORPUSCULAR HEMOGLOBIN 31.6 pg (27.0-31.0); MEAN PLATELET VOLUME 10.5 fL (7.2-11.7); MONO # 0.5 K/uL (0.0-0.8); MONO % 4.2 % (0.0-10.0); NEUT # 11.4 K/uL (1.8-7.0); NEUT % 90.1 % (50.0-75.0); NRBC % 0.5 % (0.0-2.0); PLATELET COUNT 119 K/uL (130-400); RBC 2.58 Mil/uL (3.80-5.20); RED CELL DISTRIBUTION WIDTH 15.2 % (11.5-14.5); WHITE BLOOD COUNT 12.6 K/uL (4.8-10.8)
[2018-08-05 06:56] LABS: ALBUMIN 3.4 g/dL (3.5-5.0); CALCIUM 8.1 mg/dl (8.6-10.4)
--- NOTE | 2018-08-05 08:59 | CP.PCM.PN ---
Subjective - Date & Time of Evaluation Date of Evaluation: 08/05/18 Time of Evaluation: 07:10 - Subjective Subjective: Surgery progress note for Dr. Casanova Pt seen and examined this AM. Attempted to get consent for the permacath insertion last night and this AM. Multiple residents and Dr. Casanova had extensive discussions about permacath placement and need for hemodialysis. Patient refuses the permacath and dialysis, stating that her ex d/t dialysis and she is afraid she will never get off dialysis and as well. Spent extensive time discussing risks of refusing dialysis, including possible if she refuses dialysis, thoroughly inquired about fears and hesitations about getting permacath and dialysis, attempted to address and dissuade the fears, but patient states that she still refuses. Offered to speak to friends or family, patient declined, left Dr. Casanova's contact information for further questions or concerns. Objective - Vital Signs/Intake and Output Vital Signs (last 24 hours): Temp Pulse Resp BP Pulse Ox 98.6 F 82 28 H 152/90 H 92 L 08/05/18 04:00 08/05/18 06:00 08/05/18 06:00 08/05/18 05:59 08/05/18 06:00 Intake and Output: 08/05/18 08/05/18 06:59 18:59 Intake Total 40 Output Total 50 Balance -10 - Medications Medications: Current Medications Albuterol/Ipratropium (Duoneb 3 Mg/0.5 Mg (3 Ml) Ud) 3 ml INH RQ6 [facility] Last Admin: 08/05/18 08:14 Dose: 3 ml Bacitracin (Bacitracin) 1 ea TOP BID [facility] Stop: 08/07/18 20:01 Last Admin: 08/04/18 18:23 Dose: 1 ea Epoetin Morales (Procrit) 10,000 unit IV TTS [facility] Last Admin: 08/04/18 12:49 Dose: 10,000 unit Ergocalciferol (Drisdol 50,000 Intl Units Cap) 1 cap PO Q7D [facility] Last Admin: 08/02/18 14:42 Dose: 1 cap Ferrous Gluconate (Fergon) 324 mg PO TID [facility] Last Admin: 08/04/18 17:26 Dose: Not Given Heparin Sodium (Porcine) (Heparin) 5,000 units SC Q8 [facility] Last Admin: 08/05/18 05:50 Dose: 5,000 units Meropenem 500 mg/ Sodium (Chloride) 100 mls @ 100 mls/hr IVPB Q8H [facility]; Protocol Last Admin: 08/05/18 02:34 Dose: 100 mls/hr Methylprednisolone (Solu-Medrol) 40 mg IVP Q12H [facility] Last Admin: 08/04/18 22:09 Dose: 40 mg Pantoprazole Sodium (Protonix Susp) 40 mg PO 0600 [facility] Last Admin: 08/05/18 05:51 Dose: 40 mg Vitamin B Complex/Vit C/Folic Acid (Nephro-Fortino) 1 tab PO 0800 [facility] Last Admin: 08/04/18 08:53 Dose: Not Given - Labs Labs: 08/05/18 06:31 08/05/18 06:32 PT 12.6 SECONDS (9.7-12.2) H 08/03/18 14:50 INR 1.2 08/03/18 14:50 APTT 26 SECONDS (21-34) D 08/05/18 06:31 - Constitutional Appears: Well, Non-toxic, No Acute Distress - Head Exam Head Exam: ATRAUMATIC, NORMOCEPHALIC - Eye Exam Eye Exam: Normal appearance. absent: Conjunctival injection, Scleral icterus - ENT Exam ENT Exam: Mucous Membranes Moist, Normal Oropharynx - Respiratory Exam Respiratory Exam: NORMAL BREATHING PATTERN. absent: Accessory Muscle Use, Respiratory Distress - Cardiovascular Exam Cardiovascular Exam: RRR - GI/Abdominal Exam GI & Abdominal Exam: Soft. absent: Distended - Extremities Exam Additional comments: groin with prior shiley catheter removed, site with no bleeding, minimal ecchymosis - Neurological Exam Neurological Exam: Alert, Awake, Oriented x3 - Psychiatric Exam Psychiatric exam: Anxious, Normal Affect - Skin Skin Exam: Dry, Normal Color, Warm Assessment and Plan - Assessment and Plan (Free Text) Assessment: 62F with renal failure with HD recommended Plan: Patient refusing permacath and HD even after extensive discussion about the procedure and the risks of refusing HD Recommend psych consult to establish competency to make medical decisions Please reach out to surgical team for any further questions or concerns Discussed and examined with Dr. Casanova, who agrees with the above Nayely Mata, PGY2
[2018-08-05 09:17] LABS: BANDS 2 % (0-2); LYMPHOCYTE 3 % (20-40); MONOCYTE 2 % (0-10); NEUTROPHIL 93 % (50-75); TOTAL CELLS COUNTED 100
[2018-08-05 09:18] LABS: ANISOCYTOSIS SLIGHT; HYPOCHROMIC SLIGHT; PLATELET ESTIMATE SLIGHTLY DECREASED (NORMAL); POLYCHROMIC SLIGHT
[2018-08-05] MEDS: Bacitracin 500 Units/gm Oint Foilpak UD TOP SCH ×2 (09:43→18:10)
[2018-08-05] MEDS: MethylPREDNISolone 40 mg Vial IVP SCH ×2 (09:44→21:24)
[2018-08-05] MEDS: Multivitamin Vitamin B Complex (Nephro-Vite) Tab PO SCH (09:45)
--- NOTE | 2018-08-05 13:18 | CP.PCM.PN ---
Subjective - Date & Time of Evaluation Date of Evaluation: 08/05/18 Time of Evaluation: 13:13 - Subjective Subjective: Nephrology Consultation Note Assessment: stable Acute Kidney Injury (N17.9) likely due to ATN Hypertensive Chronic Kidney Disease (I12.9) Hypokalemia Chronic Kidney Disease (N18.9) Stage ? with ? mg proteinuria (R80.9) likely due to HTN ? ESRD Anemia (D64.9), Hyperphosphatemia (E83.39) left lung collapse, UTI severe , depression/Anxiety Plan she had 1st session 07/31/18. appreciate. vascular surgery follow up for permacath insertion however pt refusing for it including dialysis. explained pros/cons, In my opinion, she lacks clear understanding of her decisions/outcomes. suggest psychiatry consult for decisional capacity and also consider family involvement Maintain hemodynamics stable. Avoid hypotension. Patient not on ACEI/ARB due to recent ROBIN Monitor Input/Output, daily weights and renal function with basic metabolic panel started Fe, MVI, epogen and weekly Vit D PRBC as needed hold binders. monitor Phos level consider heme eval Check urine analysis, spot protein/creatinine, albumin/creatinine ratio. Pending renal sonogram. CPK Check GN work up as C3, C4, LINDSEY, Anti dsDNA, ASO titers, ANCA (MPO and NH-3), Anti GBM antibody, HIV Anemia work up with TSAT/Ferritin/Vitamin B12/folate, serum protein electrophoresis with immunofixation, serum free light chain assay ([place]/Lambda) Check for 25-OH vitamin D, iPTH, phosphorus level. Dose meds/antibiotics for reduced GFR. Avoid fleets enema/magnesium based laxatives. Avoid nephrotoxins/NSAIDs/ iodinated contrast (unless needed emergently) Glycemic control Further work up for as per primary team Thanks for allowing me to participate in care of your patient. Will follow patient with you. Please call if any Qs. kev maynard team Dr Heriberto Hernandez Office: [phone] Subjective: Noted events overnight. Patients says feels okay. denies CP/SOB. refused HD or catheter insertion Physical Examination: General Appearance: Comfortable, in no acute respiratory distress Vitals reviewed and noted as below Head; Atraumatic, normocephalic ENT: WNL EYES: Pupils are equal, round and reactive to light accommodation. Eye muscles and extraocular movement intact. Sclera is anicteric. Neck; supple no lymphadenopathy, no thyromegaly or bruit Lungs: Normal respiratory rate/effort. Breath sounds b/l improved. has left side crackles Heart: normal rate. s1s2 normal. No rub or gallop. SM + at apex/LSB Extremities: no edema. No varicose veins Neurological: Patient is sedated Skin: Warm and dry. Normal turgor. No rash. Palpitation: Normal elasticity for age Abdomen: Abdomen is soft. Bowel sounds +. There is no abdominal tenderness, no guarding/rigidity no organomegaly Psych: limited insight. MSK: no joint tenderness or swelling. Digits and nails normal, no deformity : kidney or bladder not palpable access: none Labs/imaging reviewed. Past medical history, past surgical history, family history, social history, allergy reviewed and noted as below Family hx: no hx of CKD. Rest non-contributory work up: CXR: left lung collapse Hep B/C neg UA 2+ protein 1+ blood Objective - Vital Signs/Intake and Output Vital Signs (last 24 hours): Temp Pulse Resp BP Pulse Ox 97.5 F L 119 H 24 134/84 95 08/05/18 08:00 08/05/18 10:28 08/05/18 10:28 08/05/18 10:28 08/05/18 10:00 Intake and Output: 08/05/18 08/05/18 06:59 18:59 Intake Total 40 0 Output Total 50 Balance -10 0 - Medications Medications: Current Medications Albuterol/Ipratropium (Duoneb 3 Mg/0.5 Mg (3 Ml) Ud) 3 ml INH RQ6 [facility] Last Admin: 08/05/18 08:14 Dose: 3 ml Bacitracin (Bacitracin) 1 ea TOP BID [facility] Stop: 08/07/18 20:01 Last Admin: 08/05/18 09:43 Dose: 1 ea Epoetin Morales (Procrit) 10,000 unit IV TTS [facility] Last Admin: 08/04/18 12:49 Dose: 10,000 unit Ergocalciferol (Drisdol 50,000 Intl Units Cap) 1 cap PO Q7D [facility] Last Admin: 08/02/18 14:42 Dose: 1 cap Ferrous Gluconate (Fergon) 324 mg PO TID [facility] Last Admin: 08/05/18 09:43 Dose: 324 mg Heparin Sodium (Porcine) (Heparin) 5,000 units SC Q8 [facility] Last Admin: 08/05/18 05:50 Dose: 5,000 units Meropenem 500 mg/ Sodium (Chloride) 100 mls @ 100 mls/hr IVPB Q8H [facility]; Protocol Last Admin: 08/05/18 09:43 Dose: 100 mls/hr Methylprednisolone (Solu-Medrol) 40 mg IVP Q12H [facility] Last Admin: 08/05/18 09:44 Dose: 40 mg Pantoprazole Sodium (Protonix Susp) 40 mg PO 0600 [facility] Last Admin: 08/05/18 05:51 Dose: 40 mg Vitamin B Complex/Vit C/Folic Acid (Nephro-Fortino) 1 tab PO 0800 [facility] Last Admin: 08/05/18 09:45 Dose: 1 tab - Labs Labs: 08/05/18 06:31 08/05/18 06:32 PT 12.6 SECONDS (9.7-12.2) H 08/03/18 14:50 INR 1.2 08/03/18 14:50 APTT 26 SECONDS (21-34) D 08/05/18 06:31
--- NOTE | 2018-08-05 16:00 | CP.PCM.PN ---
Subjective - Date & Time of Evaluation Date of Evaluation: 08/05/18 Time of Evaluation: 09:00 - Subjective Subjective: awake alert no fever Objective - Vital Signs/Intake and Output Vital Signs (last 24 hours): Temp Pulse Resp BP Pulse Ox 97.8 F 89 25 H 140/86 95 08/05/18 12:00 08/05/18 14:00 08/05/18 14:00 08/05/18 13:59 08/05/18 14:00 Intake and Output: 08/05/18 08/05/18 06:59 18:59 Intake Total 40 0 Output Total 50 Balance -10 0 - Medications Medications: Current Medications Albuterol/Ipratropium (Duoneb 3 Mg/0.5 Mg (3 Ml) Ud) 3 ml INH RQ6 [facility] Last Admin: 08/05/18 13:27 Dose: Not Given Bacitracin (Bacitracin) 1 ea TOP BID [facility] Stop: 08/07/18 20:01 Last Admin: 08/05/18 09:43 Dose: 1 ea Epoetin Morales (Procrit) 10,000 unit IV TTS [facility] Last Admin: 08/04/18 12:49 Dose: 10,000 unit Ergocalciferol (Drisdol 50,000 Intl Units Cap) 1 cap PO Q7D [facility] Last Admin: 08/02/18 14:42 Dose: 1 cap Ferrous Gluconate (Fergon) 324 mg PO TID [facility] Last Admin: 08/05/18 15:35 Dose: 324 mg Heparin Sodium (Porcine) (Heparin) 5,000 units SC Q8 [facility] Last Admin: 08/05/18 15:35 Dose: 5,000 units Meropenem 500 mg/ Sodium (Chloride) 100 mls @ 100 mls/hr IVPB Q8H [facility]; Protocol Last Admin: 08/05/18 09:43 Dose: 100 mls/hr Methylprednisolone (Solu-Medrol) 40 mg IVP Q12H [facility] Last Admin: 08/05/18 09:44 Dose: 40 mg Pantoprazole Sodium (Protonix Susp) 40 mg PO 0600 [facility] Last Admin: 08/05/18 05:51 Dose: 40 mg Vitamin B Complex/Vit C/Folic Acid (Nephro-Fortino) 1 tab PO 0800 [facility] Last Admin: 08/05/18 09:45 Dose: 1 tab - Labs Labs: 08/05/18 06:31 08/05/18 06:32 PT 12.6 SECONDS (9.7-12.2) H 08/03/18 14:50 INR 1.2 08/03/18 14:50 APTT 26 SECONDS (21-34) D 08/05/18 06:31 - Constitutional Appears: Non-toxic, Chronically Ill - Head Exam Head Exam: NORMOCEPHALIC - Eye Exam Eye Exam: absent: Scleral icterus - ENT Exam ENT Exam: Mucous Membranes Dry - Neck Exam Neck Exam: absent: Lymphadenopathy - Respiratory Exam Respiratory Exam: Decreased Breath Sounds - Cardiovascular Exam Cardiovascular Exam: REGULAR RHYTHM - GI/Abdominal Exam GI & Abdominal Exam: Distended, Soft Assessment and Plan (1) Acute kidney injury Status: Acute (2) Closed fracture of right proximal humerus Status: Acute (3) Metabolic acidosis Status: Acute (4) Respiratory failure Status: Acute (5) Rhabdomyolysis Status: Acute - Assessment and Plan (Free Text) Assessment: MSSA bacteremia- likely skin source consider RIAN ESBL UTI on Merrem cont rx min 14 days
[2018-08-06] MEDS: Albuterol-Ipratrop 3 mg / 0.5 (3 ml) UD INH SCH (01:15)
[2018-08-06] MEDS: Meropenem 500 MG in Sodium Chloride 0.9% 100 ML IVPB SCH ×3 (01:45→18:07)
[2018-08-06] MEDS: Pantoprazole 40 mg Susp UD PO SCH (05:21)
[2018-08-06] MEDS: Multivitamin Vitamin B Complex (Nephro-Vite) Tab PO SCH (07:43)
[2018-08-06] MEDS: Bacitracin 500 Units/gm Oint Foilpak UD TOP SCH ×2 (08:59→18:07)
[2018-08-06] MEDS: MethylPREDNISolone 40 mg Vial IVP SCH ×2 (09:00→21:07)
[2018-08-06] MEDS: Epoetin Alfa 10,000 unit/ml Dialysis IV SCH (10:00)
[2018-08-06] MEDS: Epoetin Alfa 10,000 unit/ml Dialysis SC SCH (13:20)
[2018-08-06 13:54] LABS: ANCA SCREEN NEGATIVE (NEGATIVE)
--- NOTE | 2018-08-06 15:38 | CP.PCM.PN ---
Subjective - Date & Time of Evaluation Date of Evaluation: 08/06/18 Time of Evaluation: 15:38 - Subjective Subjective: Nephrology Consultation Note Assessment: stable Acute Kidney Injury (N17.9) likely due to ATN Hypertensive Chronic Kidney Disease (I12.9) Hypokalemia Chronic Kidney Disease (N18.9) Stage ? with ? mg proteinuria (R80.9) likely due to HTN ? ESRD Anemia (D64.9), Hyperphosphatemia (E83.39) left lung collapse, UTI severe , depression/Anxiety Plan she had 1st session 07/31/18. patient now refusing dialysis cr improved today but UOP not accurate please monitor I&Os Maintain hemodynamics stable. continue Fe, MVI, epogen and weekly Vit D PRBC as needed monitor Phos level Subjective: Noted events overnight. Physical Examination: General Appearance: Comfortable, in no acute respiratory distress Vitals reviewed and noted as below Head; Atraumatic, normocephalic ENT: WNL EYES:Eye muscles and extraocular movement intact. Sclera is anicteric. Neck; supple no thyromegaly or bruit Lungs: Normal respiratory rate/effort. Breath sounds b/l improved. has left side crackles Heart: normal rate. s1s2 normal. No rub or gallop. SM + at apex/LSB Extremities: no edema. No varicose veins Neurological: Patient is sedated Skin: Warm and dry. Normal turgor. No rash. Abdomen: Abdomen is soft. Bowel sounds +. There is no abdominal tenderness, no guarding/rigidity no organomegaly Psych: limited insight. MSK: no joint tenderness or swelling. Objective - Vital Signs/Intake and Output Vital Signs (last 24 hours): Temp Pulse Resp BP Pulse Ox 97.9 F 97 H 25 H 139/100 H 95 08/06/18 12:00 08/06/18 12:21 08/06/18 08:42 08/06/18 12:21 08/06/18 12:21 Intake and Output: 08/06/18 08/06/18 06:59 18:59 Intake Total 590 480 Output Total 100 Balance 590 380 - Medications Medications: Current Medications Bacitracin (Bacitracin) 1 ea TOP BID [facility] Stop: 08/07/18 20:01 Last Admin: 08/06/18 08:59 Dose: 1 ea Epoetin Morales (Procrit) 10,000 unit SC TTS [facility] Stop: 08/09/18 10:16 Last Admin: 08/06/18 13:20 Dose: 10,000 unit Ergocalciferol (Drisdol 50,000 Intl Units Cap) 1 cap PO Q7D [facility] Last Admin: 08/02/18 14:42 Dose: 1 cap Ferrous Gluconate (Fergon) 324 mg PO TID [facility] Last Admin: 08/06/18 13:21 Dose: 324 mg Heparin Sodium (Porcine) (Heparin) 5,000 units SC Q8 [facility] Last Admin: 08/06/18 13:21 Dose: 5,000 units Meropenem 500 mg/ Sodium (Chloride) 100 mls @ 100 mls/hr IVPB Q8H [facility]; Protocol Last Admin: 08/06/18 08:59 Dose: 100 mls/hr Methylprednisolone (Solu-Medrol) 40 mg IVP Q12H [facility] Last Admin: 08/06/18 09:00 Dose: 40 mg Pantoprazole Sodium (Protonix Susp) 40 mg PO 0600 [facility] Last Admin: 08/06/18 05:21 Dose: 40 mg Vitamin B Complex/Vit C/Folic Acid (Nephro-Fortino) 1 tab PO 0800 [facility] Last Admin: 08/06/18 07:43 Dose: 1 tab - Labs Labs: 08/05/18 06:31 08/05/18 06:32 PT 12.6 SECONDS (9.7-12.2) H 08/03/18 14:50 INR 1.2 08/03/18 14:50 APTT 26 SECONDS (21-34) D 08/05/18 06:31
[2018-08-07] MEDS: Meropenem 500 MG in Sodium Chloride 0.9% 100 ML IVPB SCH ×3 (01:08→17:04)
[2018-08-07 03:20] LABS: BASO % 0.1 % (0.0-2.0); LYMPH # 0.7 K/uL (1.0-4.3); LYMPH % 5.9 % (20.0-40.0); MEAN CELL VOLUME 92.6 fL (81.0-99.0); MEAN CORPUSCULAR HEMOGLOBIN 31.2 pg (27.0-31.0); MEAN CORPUSCULAR HGB CONC 33.7 g/dL (33.0-37.0); MEAN PLATELET VOLUME 11.6 fL (7.2-11.7); MONO # 0.6 K/uL (0.0-0.8); MONO % 5.2 % (0.0-10.0); NEUT # 10.7 K/uL (1.8-7.0); NEUT % 88.8 % (50.0-75.0); NRBC % 0.9 % (0.0-2.0); PLATELET COUNT 97 K/uL (130-400); RBC 2.87 Mil/uL (3.80-5.20); RED CELL DISTRIBUTION WIDTH 15.4 % (11.5-14.5); WHITE BLOOD COUNT 12.1 K/uL (4.8-10.8)
[2018-08-07 03:20] LABS: ABG ALLEN TEST POS; ARTERIAL BLOOD GAS HCO3 25.7 mmol/L (21-28); ARTERIAL BLOOD GAS O2 SAT 98.9 % (95-98); ARTERIAL BLOOD GAS PCO2 32 mm/Hg (35-45); ARTERIAL BLOOD GAS PH 7.48 (7.35-7.45); ARTERIAL BLOOD GAS PO2 189 mm/Hg (80-100); ARTERIAL BLOOD GAS TCO2 24.8 mmol/L (22-28)
--- NOTE | 2018-08-07 03:38 | PCM.RRT ---
PRODUCT SPECIALIST Nurses Assessment - Situation Date: 08/07/18 Time PRODUCT SPECIALIST was called: 02:35 PRODUCT SPECIALIST Responder Arrival Time:: 02:37 PRODUCT SPECIALIST Location:: I ICU Room Number: 15 PRODUCT SPECIALIST Reason for Call: Change in Mental Status (pt seen jerking- lasted about 2 mins, hr @ 140's, official court reporter called) PRODUCT SPECIALIST Called By: RN New IV Insertion Tolerance: Excellent - Ventilator Settings Mode: CPAP+PS PEEP/CPAP (cm H2O): 5 Pressure Support: 12 FIO2 (% Oxygen): 40 - Medication Medications Administered During PRODUCT SPECIALIST: Ativan - Diagnostic Test Ordered EKG: Yes (stat) CT Scan: Yes (stat head ct) - Stat Labs Ordered PRODUCT SPECIALIST Stat Labs Ordered: CBC, BMP, TROPONIN, ABG (with shock panel) CPR started during PRODUCT SPECIALIST?: No - Recommendations 5) PRODUCT SPECIALIST Level of Care Recommendations: Transfer to Telemetry (would recommend neuro consult) Notifications: Attending Physician (Dr. Montiel contacted about abnormal lab values and events of PRODUCT SPECIALIST, orders given over phone to RN by Dr. Montiel)
[2018-08-07 03:43] LABS: ALBUMIN 3.2 g/dL (3.5-5.0)
[2018-08-07 04:00] LABS: CALCIUM 8.3 mg/dl (8.6-10.4); CK-MB 0.95 ng/mL (0.0-3.38); TROPONIN I 0.156 ng/mL (0.00-0.120)
[2018-08-07 04:01] LABS: ALB/GLOB RATIO 1.1 (1.0-2.1)
[2018-08-07 04:07] LABS: LYMPHOCYTE 6 % (20-40); MONOCYTE 3 % (0-10); NEUTROPHIL 91 % (50-75); PLATELET ESTIMATE SLIGHTLY DECREASED (NORMAL); TOTAL CELLS COUNTED 100
[2018-08-07 04:08] LABS: ANISOCYTOSIS SLIGHT; POLYCHROMIC SLIGHT
[2018-08-07 04:09] LABS: HYPERSEGMENTATION PRESENT
[2018-08-07] MEDS ORDERED: Potassium Chloride 20 mEq ER Tab PO ONE ×2 (04:49→11:40)
[2018-08-07] MEDS ORDERED: Magnesium Oxide 400 mg Tab UD PO ONE (04:49)
[2018-08-07] MEDS: Pantoprazole 40 mg Susp UD PO SCH (05:59)
--- NOTE | 2018-08-07 09:10 | CT ---
Date of service: 08/07/2018 PROCEDURE: CT HEAD WITHOUT CONTRAST. HISTORY: new onset seizure activity COMPARISON: Noncontrast head CT performed 07/31/18 TECHNIQUE: Axial computed tomography images were obtained through the head/brain without intravenous contrast. Radiation dose: Total exam DLP = 1132.13 mGy-cm. This CT exam was performed using one or more of the following dose reduction techniques: Automated exposure control, adjustment of the mA and/or kV according to patient size, and/or use of iterative reconstruction technique. FINDINGS: HEMORRHAGE: No intracranial hemorrhage. BRAIN: Diffuse atrophy with prominence of the ventricles and sulci noted. No mass effect or edema. Scattered periventricular and subcortical white matter hypodensities, which are nonspecific, but often seen with chronic microvascular ischemic disease. Please note that MRI with diffusion imaging is more sensitive in the detection of acute ischemic event. VENTRICLES: No hydrocephalus. CALVARIUM: Unremarkable. PARANASAL SINUSES: Unremarkable as visualized. No significant inflammatory changes. MASTOID AIR CELLS: Unremarkable as visualized. No inflammatory changes. OTHER FINDINGS: None. IMPRESSION: Generalized atrophy. Nonspecific white matter changes. Preliminary impression was provided by [facility].
[2018-08-07] MEDS: Multivitamin Vitamin B Complex (Nephro-Vite) Tab PO SCH (09:46)
[2018-08-07] MEDS: MethylPREDNISolone 40 mg Vial IVP SCH ×2 (09:46→21:18)
[2018-08-07] MEDS: Bacitracin 500 Units/gm Oint Foilpak UD TOP SCH ×2 (10:02→17:06)
[2018-08-07 11:02] LABS: ALB/GLOB RATIO 1.2 (1.0-2.1); ALBUMIN 3.3 g/dL (3.5-5.0); CALCIUM 9.1 mg/dl (8.6-10.4)
[2018-08-07 11:24] LABS: CK-MB 1.14 ng/mL (0.0-3.38); TROPONIN I 0.14 ng/mL (0.00-0.120)
--- NOTE | 2018-08-07 14:26 | CP.PCM.PN ---
Subjective - Date & Time of Evaluation Date of Evaluation: 08/07/18 Time of Evaluation: 09:00 - Subjective Subjective: slow pprogress iv rx reordered Objective - Vital Signs/Intake and Output Vital Signs (last 24 hours): Temp Pulse Resp BP Pulse Ox 98.4 F 100 H 26 H 163/96 H 96 08/07/18 08:00 08/07/18 10:00 08/07/18 10:00 08/07/18 08:39 08/07/18 10:00 Intake and Output: 08/07/18 08/07/18 06:59 18:59 Intake Total 760 220 Output Total 101 1 Balance 659 219 - Medications Medications: Current Medications Amlodipine Besylate (Norvasc) 10 mg PO DAILY [facility] Last Admin: 08/07/18 11:58 Dose: 10 mg Bacitracin (Bacitracin) 1 ea TOP BID [facility] Stop: 08/07/18 20:01 Last Admin: 08/07/18 10:02 Dose: 1 ea Epoetin Morales (Procrit) 10,000 unit SC TTS [facility] Stop: 08/09/18 10:16 Last Admin: 08/06/18 13:20 Dose: 10,000 unit Ergocalciferol (Drisdol 50,000 Intl Units Cap) 1 cap PO Q7D [facility] Last Admin: 08/02/18 14:42 Dose: 1 cap Ferrous Gluconate (Fergon) 324 mg PO TID [facility] Last Admin: 08/07/18 09:46 Dose: 324 mg Meropenem 500 mg/ Sodium (Chloride) 100 mls @ 100 mls/hr IVPB Q8H [facility]; Protocol Last Admin: 08/07/18 09:46 Dose: 100 mls/hr Lorazepam (Ativan) 2 mg IVP Q2H PRN PRN Reason: Seizure activity Last Admin: 08/07/18 03:10 Dose: 2 mg Methylprednisolone (Solu-Medrol) 40 mg IVP Q12H [facility] Last Admin: 08/07/18 09:46 Dose: 40 mg Pantoprazole Sodium (Protonix Susp) 40 mg PO 0600 [facility] Last Admin: 08/07/18 05:59 Dose: 40 mg Vitamin B Complex/Vit C/Folic Acid (Nephro-Fortino) 1 tab PO 0800 [facility] Last Admin: 08/07/18 09:46 Dose: 1 tab - Labs Labs: 08/07/18 03:14 08/07/18 10:25 PT 12.6 SECONDS (9.7-12.2) H 08/03/18 14:50 INR 1.2 08/03/18 14:50 APTT 26 SECONDS (21-34) D 08/05/18 06:31 - Constitutional Appears: Non-toxic, Chronically Ill - Head Exam Head Exam: NORMOCEPHALIC - Eye Exam Eye Exam: PERRL - ENT Exam ENT Exam: Normal External Ear Exam - Neck Exam Neck Exam: absent: Lymphadenopathy - Respiratory Exam Respiratory Exam: Prolonged Expiratory Phase - Cardiovascular Exam Cardiovascular Exam: REGULAR RHYTHM - GI/Abdominal Exam GI & Abdominal Exam: Distended, Soft Assessment and Plan (1) Acute kidney injury Status: Acute (2) Closed fracture of right proximal humerus Status: Acute (3) Metabolic acidosis Status: Acute (4) Respiratory failure Status: Acute (5) Rhabdomyolysis Status: Acute - Assessment and Plan (Free Text) Assessment: cont iv antibiotics min 14 days
--- NOTE | 2018-08-07 14:27 | CP.PCM.PCO ---
Physician Communication Note - Physician Communication Note Physician Communication Note: abnormal echo recc: RIAN cardio eval
--- NOTE | 2018-08-07 20:43 | CP.PCM.PN ---
Subjective - Date & Time of Evaluation Date of Evaluation: 08/07/18 Time of Evaluation: 20:42 - Subjective Subjective: Nephrology Consultation Note Assessment: stable Acute Kidney Injury (N17.9) likely due to ATN Hypertensive Chronic Kidney Disease (I12.9) Hypokalemia Chronic Kidney Disease (N18.9) Stage ? with ? mg proteinuria (R80.9) likely due to HTN ? ESRD Anemia (D64.9), Hyperphosphatemia (E83.39) left lung collapse, UTI severe , depression/Anxiety Plan she had 1st session 07/31/18. patient continues to refuse dialysis cr stable but UOP not accurate please monitor I&O continue Fe, MVI, epogen and weekly Vit D PRBC as needed monitor Phos level Subjective: No events overnight Physical Examination: General Appearance: Comfortable, in no acute respiratory distress Vitals reviewed and noted as below Head; Atraumatic, normocephalic ENT: WNL EYES:Eye muscles and extraocular movement intact. Sclera is anicteric. Neck; supple no thyromegaly or bruit Lungs: Normal respiratory rate/effort. Breath sounds b/l improved. has left side crackles Heart: normal rate. s1s2 normal. No rub or gallop. SM + at apex/LSB Extremities: no edema. No varicose veins Neurological: Patient is sedated Skin: Warm and dry. Normal turgor. No rash. Abdomen: Abdomen is soft. Bowel sounds +. There is no abdominal tenderness, no guarding/rigidity no organomegaly Psych: limited insight. MSK: no joint tenderness Objective - Vital Signs/Intake and Output Vital Signs (last 24 hours): Temp Pulse Resp BP Pulse Ox 99.0 F 101 H 24 144/86 93 L 08/07/18 16:00 08/07/18 16:21 08/07/18 16:21 08/07/18 16:21 08/07/18 16:21 Intake and Output: 08/07/18 08/08/18 18:59 06:59 Intake Total 320 Output Total 2 Balance 318 - Medications Medications: Current Medications Amlodipine Besylate (Norvasc) 10 mg PO DAILY [facility] Last Admin: 08/07/18 11:58 Dose: 10 mg Epoetin Morales (Procrit) 10,000 unit SC TTS [facility]PL[facility] Stop: 10/16/18 10:16 Last Admin: 08/06/18 13:20 Dose: 10,000 unit Ergocalciferol (Drisdol 50,000 Intl Units Cap) 1 cap PO Q7D [facility]PL[facility] Last Admin: 08/02/18 14:42 Dose: 1 cap Ferrous Gluconate (Fergon) 324 mg PO TID [facility] Last Admin: 08/07/18 17:06 Dose: 324 mg Meropenem 500 mg/ Sodium (Chloride) 100 mls @ 100 mls/hr IVPB Q8H [facility]; Protocol Last Admin: 08/07/18 17:04 Dose: 100 mls/hr Lorazepam (Ativan) 2 mg IVP Q2H PRN PRN Reason: Seizure activity Last Admin: 08/07/18 03:10 Dose: 2 mg Methylprednisolone (Solu-Medrol) 40 mg IVP Q12H [facility]PL[facility] Last Admin: 08/07/18 09:46 Dose: 40 mg Pantoprazole Sodium (Protonix Susp) 40 mg PO 0600 [facility] Last Admin: 08/07/18 05:59 Dose: 40 mg Vitamin B Complex/Vit C/Folic Acid (Nephro-Fortino) 1 tab PO 0800 [facility] Last Admin: 08/07/18 09:46 Dose: 1 tab - Labs Labs: 08/07/18 03:14 08/07/18 10:25 PT 12.6 SECONDS (9.7-12.2) H 08/03/18 14:50 INR 1.2 08/03/18 14:50 APTT 26 SECONDS (21-34) D 08/05/18 06:31
[2018-08-08] MEDS: Meropenem 500 MG in Sodium Chloride 0.9% 100 ML IVPB SCH ×3 (01:30→17:31)
--- NOTE | 2018-08-08 02:40 | PN ---
DATE: 08/07/2018 SUBJECTIVE: The patient was seen and examined on the bedside, looking comfortable. No change in the status. PHYSICAL EXAMINATION: VITAL SIGNS: Temperature 99, pulse 101, respiratory rate 24, blood pressure 144/83, pulse oximetry 92. HEENT: Head normocephalic and atraumatic. Eyes, PERRLA. Extraocular muscles intact. Conjunctivae clear. Nose patent. Mucous membranes moist. NECK: Supple. No carotid bruits, JVD or thyromegaly. CHEST: Bilateral symmetrical. HEART: S1 and S2 positive. LUNGS: Clear to auscultation. ABDOMEN: Soft. Bowel sound present. No organomegaly. EXTREMITIES: No edema. No cyanosis. NEUROLOGIC: The patient is awake and alert. MEDICATIONS: Vitamin D, iron, meropenem, Ativan, Solu-Medrol, Protonix, B-complex. LABORATORY DATA: White blood cells 12.1, hemoglobin 9, hematocrit 26.3, platelets 97. Sodium 144, potassium 3.2, BUN 73, creatinine 2.2, glucose 146. ASSESSMENT AND PLAN: Ms. Romy Feng is a 62 years old lady with leukocytosis, anemia, thrombocytopenia, hypokaliemia, renal insufficiency, hyperchloremia, hyperglycemia, has acute kidney injury likely due to acute tubular necrosis, hypertension, chronic kidney disease, left lung collapse, urinary tract infection, depression and anxiety. The patient is refusing dialysis . monitoring Is and Os. Continue present treatment especially Epogen. Monitoring the patient's electrolytes. ID is on the case. We will follow up. Pina Montiel MD [facility]
[2018-08-08] MEDS: Pantoprazole 40 mg Susp UD PO SCH (05:49)
[2018-08-08 06:12] LABS: BASO % 0.1 % (0.0-2.0); EOS % 0.1 % (0.0-4.0); HEMOGLOBIN 8.8 g/dL (11.0-16.0); LYMPH # 0.5 K/uL (1.0-4.3); LYMPH % 4.3 % (20.0-40.0); MEAN CELL VOLUME 93.9 fL (81.0-99.0); MEAN CORPUSCULAR HEMOGLOBIN 31.8 pg (27.0-31.0); MEAN CORPUSCULAR HGB CONC 33.8 g/dL (33.0-37.0); MEAN PLATELET VOLUME 11.4 fL (7.2-11.7); MONO # 0.5 K/uL (0.0-0.8); MONO % 4.2 % (0.0-10.0); NEUT # 10.9 K/uL (1.8-7.0); NEUT % 91.3 % (50.0-75.0); NRBC % 0.2 % (0.0-2.0); PLATELET COUNT 103 K/uL (130-400); RBC 2.78 Mil/uL (3.80-5.20); RED CELL DISTRIBUTION WIDTH 15.1 % (11.5-14.5); WHITE BLOOD COUNT 11.9 K/uL (4.8-10.8)
[2018-08-08 06:27] LABS: ALB/GLOB RATIO 1.1 (1.0-2.1); ALBUMIN 3.1 g/dL (3.5-5.0); CALCIUM 9.1 mg/dl (8.6-10.4)
[2018-08-08 06:35] LABS: TROPONIN I 0.12 ng/mL (0.00-0.120)
[2018-08-08 06:36] LABS: CK-MB 1.63 ng/mL (0.0-3.38)
--- NOTE | 2018-08-08 07:08 | PN ---
DATE: 08/05/2018 SUBJECTIVE: The patient is a 62-year-old female. No fever. No chills. No headache. No dizziness. Appears comfortable in no acute respiratory distress. PHYSICAL EXAMINATION: VITAL SIGNS: Temperature 97.5, pulse 119, respiratory rate 24, blood pressure 144/84, pulse oximetry 95. HEENT: Head normocephalic and atraumatic. Eyes PERRLA. Extraocular movements are intact. Conjunctivae clear. Nose patent. Mucous membranes moist. NECK: Supple. No carotid bruits, JVD or thyromegaly. CHEST: Bilaterally symmetrical. HEART: S1 and S2 positive. LUNGS: Clear to auscultation. ABDOMEN: Soft. Bowel sound present. No organomegaly. EXTREMITIES: No edema. No cyanosis. NEUROLOGICAL: The patient is awake and alert. Moving all four extremities. No focal deficit. MEDICATIONS: DuoNeb, bacitracin, Fergon, heparin, clonidine, Solu-Medrol, Protonix. LABORATORY DATA: White blood cells 12.6, hemoglobin 8.2, hematocrit 24, platelets 119. Sodium 140, potassium 5.3, BUN 64, creatinine 2.4, glucose 143. ASSESSMENT AND PLAN: Ms. Romy Feng is a 62-year-old lady with leukocytosis, anemia, thrombocytopenia, hypokalemia, renal insufficiency, hyperchloremia, diabetes mellitus, has acute kidney injury likely due to acute tubular necrosis, hypertension, chronic kidney disease, hyperkalemia, hyperphosphatemia, left lung collapse, urinary tract infection, severe aortic stenosis, depression, and anxiety. Vascular surgery, Dr. Casanova and his team tried to talk to the patient about PermCath insertion; however, the patient refused. I reviewed Dr. Casanova's notes. They tried their best. Once the patient accepted the procedure of PermCath we can do dialysis because as per her, she lost her ex- with dialysis. she dont want dialySiS . Explained the pros and cons and told her to talk the family and friends, but the patient still refused PermCath. We will monitor phosphorus level. Consider hematological evaluation. Gastrointestinal and deep venous thrombosis prophylaxis. Repeat labs. We will follow up. Pina Montiel MD [facility] # [id number]
--- NOTE | 2018-08-08 07:10 | PN ---
DATE: 08/06/2018 SUBJECTIVE: The patient was seen and examined at the bedside on 08/06/2018, looking comfortable. The patient was extubated, oriented x3. No nausea, vomiting, or diarrhea. No hematuria. No hematochezia. Still having brace in the left upper extremities. No fever. No chills. PHYSICAL EXAMINATION: VITAL SIGNS: Temperature 97.9, pulse 97, respiratory rate 25, blood pressure 139/100, pulse oximetry 95. HEENT: Head is normocephalic and atraumatic. Eyes PERRLA. Extraocular movements are intact. Conjunctivae clear. Nose patent. Mucous membranes are moist. NECK: Supple. No carotid bruits. No JVD or thyromegaly. CHEST: Bilaterally symmetrical. HEART: S1 and S2 positive. LUNGS: Clear to auscultation. ABDOMEN: Soft. Bowel sounds are positive. No organomegaly. EXTREMITIES: Lower extremities, no edema, no cyanosis. Upper extremity, left upper extremity is in the brace. MEDICATIONS: Bacitracin, Procrit, vitamin D, iron, heparin. LABORATORY DATA: White blood cell 12.6, hemoglobin 8.2, hematocrit 24, platelets 119. Sodium 143, potassium 5.3, BUN 54, creatinine 2.4, glucose 222. ASSESSMENT AND PLAN: The patient is a 52-year-old lady with leukocytosis, anemia, thrombocytopenia, hyperkalemia, hyperchloremia, renal insufficiency, BUN is increasing, hyperglycemia, diabetes mellitus, hypocalcemia, hypophosphoremia, abnormal liver function test, hypoalbuminemia, proteinuria, hematuria. Toxicology was positive for opioids. Hepatitis and flu are negative. The patient needs dialysis, representative government relations is on the case. Tried to convince the patient, but the patient is refusing dialysis, status post respiratory failure, was intubated. Severe sepsis, pneumonia, methicillin-susceptible Staphylococcus aureus bacteremia and extended-spectrum beta-lactamase plus Escherichia colli urinary tract infection, on Merrem. The patient was explained for dialysis, but she says she don+t want that, she refused, and maybe I can talk to her children, she has 3 sons, but she refused me to talk to her sons, but surgical team talked to the patient+s sons also. Today, the patient was oriented x3 and still she is refusing dialysis. According to the patient, she is DNR and DNI, and she has that paper workup in her primary care doctor+s office. I spoke to the nurse. She will call family, they can bring that workup to see the paper so we can make the patient DNR and DNI; otherwise, continue treatment. We will continue convincing the patient for dialysis. We will follow up. Pina Montiel MD
[2018-08-08] MEDS: Multivitamin Vitamin B Complex (Nephro-Vite) Tab PO SCH (08:29)
[2018-08-08 08:35] LABS: BANDS 1 % (0-2); LYMPHOCYTE 3 % (20-40); MONOCYTE 2 % (0-10); NEUTROPHIL 94 % (50-75); NUCLEATED RED BLOOD CELL 1 % (0-0); TOTAL CELLS COUNTED 100
[2018-08-08 08:36] LABS: ANISOCYTOSIS SLIGHT; HYPOCHROMIC SLIGHT; PLATELET ESTIMATE SLIGHTLY DECREASED (NORMAL); POLYCHROMIC SLIGHT
[2018-08-08] MEDS: MethylPREDNISolone 40 mg Vial IVP SCH ×2 (09:29→23:00)
[2018-08-08] MEDS: Potassium Chloride 20 mEq ER Tab PO SCH ×2 (11:55→15:06)
--- NOTE | 2018-08-08 12:00 | CP.PCM.PN ---
Subjective - Date & Time of Evaluation Date of Evaluation: 08/08/18 Time of Evaluation: 09:00 - Subjective Subjective: alert confused nad Objective - Vital Signs/Intake and Output Vital Signs (last 24 hours): Temp Pulse Resp BP Pulse Ox 98.9 F 95 H 18 162/88 H 99 08/08/18 04:00 08/08/18 10:00 08/08/18 04:00 08/08/18 04:00 08/08/18 04:00 Intake and Output: 08/08/18 08/08/18 06:59 18:59 Intake Total 400 Balance 400 - Medications Medications: Current Medications Amlodipine Besylate (Norvasc) 10 mg PO DAILY [facility] Last Admin: 08/08/18 09:29 Dose: 10 mg Aspirin (Aspirin Chewable) 81 mg PO DAILY [facility] Last Admin: 08/08/18 09:29 Dose: 81 mg Epoetin Morales (Procrit) 10,000 unit SC TTS [facility] Stop: 08/09/18 10:16 Last Admin: 08/06/18 13:20 Dose: 10,000 unit Ergocalciferol (Drisdol 50,000 Intl Units Cap) 1 cap PO Q7D [facility] Last Admin: 08/02/18 14:42 Dose: 1 cap Ferrous Gluconate (Fergon) 324 mg PO TID [facility] Last Admin: 08/08/18 09:29 Dose: 324 mg Meropenem 500 mg/ Sodium (Chloride) 100 mls @ 100 mls/hr IVPB Q8H [facility]; Protocol Last Admin: 08/08/18 09:33 Dose: 100 mls/hr Lorazepam (Ativan) 2 mg IVP Q2H PRN PRN Reason: Seizure activity Last Admin: 08/07/18 03:10 Dose: 2 mg Methylprednisolone (Solu-Medrol) 40 mg IVP Q12H [facility] Last Admin: 08/08/18 09:29 Dose: 40 mg Pantoprazole Sodium (Protonix Susp) 40 mg PO 0600 [facility] Last Admin: 08/08/18 05:49 Dose: 40 mg Potassium Chloride (K-Dur 20 Meq Er Tab) 20 meq PO Q4H [facility] Stop: 08/08/18 15:31 Last Admin: 08/08/18 11:55 Dose: 20 meq Vitamin B Complex/Vit C/Folic Acid (Nephro-Fortino) 1 tab PO 0800 [facility] Last Admin: 08/08/18 08:29 Dose: 1 tab - Labs Labs: 08/08/18 06:02 08/08/18 06:02 PT 12.6 SECONDS (9.7-12.2) H 08/03/18 14:50 INR 1.2 08/03/18 14:50 APTT 26 SECONDS (21-34) D 08/05/18 06:31 - Constitutional Appears: Non-toxic, Chronically Ill - Head Exam Head Exam: NORMOCEPHALIC - Eye Exam Eye Exam: PERRL - ENT Exam ENT Exam: Mucous Membranes Dry - Neck Exam Neck Exam: absent: Lymphadenopathy - Respiratory Exam Respiratory Exam: Decreased Breath Sounds - Cardiovascular Exam Cardiovascular Exam: REGULAR RHYTHM - GI/Abdominal Exam GI & Abdominal Exam: Distended, Soft - Rectal Exam Rectal Exam: Deferred - Exam Exam: NORMAL INSPECTION - Extremities Exam Extremities Exam: absent: Pedal Edema Assessment and Plan (1) Acute kidney injury Status: Acute (2) Closed fracture of right proximal humerus Status: Acute (3) Metabolic acidosis Status: Acute (4) Respiratory failure Status: Acute (5) Rhabdomyolysis Status: Acute - Assessment and Plan (Free Text) Assessment: cont iv merrem for 14 days will repeat blood c/s - grew MSSA blood / ESBL urine
--- NOTE | 2018-08-08 12:12 | CP.PCM.PN ---
Subjective - Date & Time of Evaluation Date of Evaluation: 08/08/18 Time of Evaluation: 12:09 - Subjective Subjective: Nephrology Consultation Note Assessment: stable Acute Kidney Injury (N17.9) likely due to ATN: improved (work up for GN neg) Hypertensive Chronic Kidney Disease (I12.9) Hypokalemia Chronic Kidney Disease (N18.9) Stage ? with ? mg proteinuria (R80.9) likely due to HTN Anemia (D64.9), Hyperphosphatemia (E83.39) left lung collapse, UTI severe , depression/Anxiety Plan she had 1st session 07/31/18 and last HD on 08/04/18. pt refused for further dialysis. Now renal function stable with stable cr. UOP likely not accurate. continue to monitor her without dialysis Maintain hemodynamics stable. Avoid hypotension. Patient not on ACEI/ARB due to recent ROBIN Monitor Input/Output, daily weights and renal function with basic metabolic panel started Fe, MVI, epogen and weekly Vit D PRBC as needed add lasix 20 mg/day consider heme eval for anemia, cardiology eval for Check urine analysis, spot protein/creatinine, albumin/creatinine ratio. Pending renal sonogram. CPK Check GN work up as C3, C4, LINDSEY, Anti dsDNA, ASO titers, ANCA (MPO and MT-3), Anti GBM antibody, HIV Anemia work up with TSAT/Ferritin/Vitamin B12/folate, serum protein electrophoresis with immunofixation, serum free light chain assay ([place]/Lambda) Check for 25-OH vitamin D, iPTH, phosphorus level. Dose meds/antibiotics for reduced GFR. Avoid fleets enema/magnesium based laxatives. Avoid nephrotoxins/NSAIDs/ iodinated contrast (unless needed emergently) Glycemic control Further work up for as per primary team Thanks for allowing me to participate in care of your patient. Will follow patient with you. Please call if any Qs. kev maynard team Dr Heriberto Hernandez Office: [phone] Subjective: Noted events overnight. Patients says feels okay. denies CP/SOB. refused HD or catheter insertion Physical Examination: General Appearance: Comfortable, in no acute respiratory distress Vitals reviewed and noted as below Head; Atraumatic, normocephalic ENT: WNL EYES: Pupils are equal, round and reactive to light accommodation. Eye muscles and extraocular movement intact. Sclera is anicteric. Neck; supple no lymphadenopathy, no thyromegaly or bruit Lungs: Normal respiratory rate/effort. Breath sounds b/l improved. has left side crackles Heart: normal rate. s1s2 normal. No rub or gallop. SM + at apex/LSB Extremities: 1-2+ edema. No varicose veins Neurological: Patient is alert awake oriented x 2 follow commands Skin: Warm and dry. Normal turgor. No rash. Palpitation: Normal elasticity for age Abdomen: Abdomen is soft. Bowel sounds +. There is no abdominal tenderness, no guarding/rigidity no organomegaly Psych: limited insight. MSK: no joint tenderness or swelling. Digits and nails normal, no deformity : kidney or bladder not palpable access: none Labs/imaging reviewed. Past medical history, past surgical history, family history, social history, allergy reviewed and noted as below Family hx: no hx of CKD. Rest non-contributory work up: CXR: left lung collapse Hep B/C neg UA 2+ protein 1+ blood Objective - Vital Signs/Intake and Output Vital Signs (last 24 hours): Temp Pulse Resp BP Pulse Ox 98.9 F 95 H 18 162/88 H 99 08/08/18 04:00 08/08/18 10:00 08/08/18 04:00 08/08/18 04:00 08/08/18 04:00 Intake and Output: 08/08/18 08/08/18 06:59 18:59 Intake Total 400 Balance 400 - Medications Medications: Current Medications Amlodipine Besylate (Norvasc) 10 mg PO DAILY [facility] Last Admin: 08/08/18 09:29 Dose: 10 mg Aspirin (Aspirin Chewable) 81 mg PO DAILY [facility] Last Admin: 08/08/18 09:29 Dose: 81 mg Epoetin Morales (Procrit) 10,000 unit SC TTS [facility] Stop: 08/09/18 10:16 Last Admin: 08/06/18 13:20 Dose: 10,000 unit Ergocalciferol (Drisdol 50,000 Intl Units Cap) 1 cap PO Q7D [facility] Last Admin: 08/02/18 14:42 Dose: 1 cap Ferrous Gluconate (Fergon) 324 mg PO TID [facility] Last Admin: 08/08/18 09:29 Dose: 324 mg Meropenem 500 mg/ Sodium (Chloride) 100 mls @ 100 mls/hr IVPB Q8H [facility]; Protocol Last Admin: 08/08/18 09:33 Dose: 100 mls/hr Lorazepam (Ativan) 2 mg IVP Q2H PRN PRN Reason: Seizure activity Last Admin: 08/07/18 03:10 Dose: 2 mg Methylprednisolone (Solu-Medrol) 40 mg IVP Q12H [facility] Last Admin: 08/08/18 09:29 Dose: 40 mg Pantoprazole Sodium (Protonix Susp) 40 mg PO 0600 [facility] Last Admin: 08/08/18 05:49 Dose: 40 mg Potassium Chloride (K-Dur 20 Meq Er Tab) 20 meq PO Q4H [facility] Stop: 08/08/18 15:31 Last Admin: 08/08/18 11:55 Dose: 20 meq Vitamin B Complex/Vit C/Folic Acid (Nephro-Fortino) 1 tab PO 0800 [facility] Last Admin: 08/08/18 08:29 Dose: 1 tab - Labs Labs: 08/08/18 06:02 08/08/18 06:02 PT 12.6 SECONDS (9.7-12.2) H 08/03/18 14:50 INR 1.2 08/03/18 14:50 APTT 26 SECONDS (21-34) D 08/05/18 06:31
--- NOTE | 2018-08-08 16:55 | CON ---
DATE: 08/08/2018 NEUROLOGY CONSULTATION CHIEF COMPLAINT: Questionable seizure on 08/07/2018, where there was questionable jerking. The patient was seen jerk lasting two minutes with the heart rate of 140s. HISTORY OF PRESENTING ILLNESS: This is a 62-year-old woman with past medical history of hypertension, hyperlipidemia and depression, who was brought in for possible issue with the lethargy and unresponsiveness and she was found to have severe renal failure and acidosis, questionable oncologist for two days and was also started on Remeron by her PCP. She is being worked up by Nephrology for evaluating for the etiology for acute kidney injury. Currently, the patient was consulted for questionable jerking movements of the upper extremities. The patient had acute kidney injury, likely acute tubular necrosis and is being worked up for glomerulonephritis, which is so far have been negative. She also has left lung collapse and severe aortic stenosis. Currently, no further jerks of the extremities. She has metabolic derangements and has some underlying groin abscess growing Staphylococcus aureus as well as E. coli in her urine as well as Staphylococcus in her blood because of bacteremia and her antibiotics and meropenem. PAST MEDICAL HISTORY: As above. ALLERGIES: NO KNOWN DRUG ALLERGIES. SOCIAL HISTORY: No illicit drug abuse, smoking, or EtOH abuse at this time. FAMILY HISTORY: Noncontributory. REVIEW OF SYSTEMS: A 14-point review of systems negative except in the HPI. MEDICATIONS: Medications reviewed by nurse reconciliation sheet. PHYSICAL EXAMINATION: VITAL SIGNS: Temperature 98.9, pulse rate 75, blood pressure 160/88, respiratory rate 18, oxygen saturation 99% on room air. GENERAL: The patient is in bed, in no acute distress. HEENT: Head is atraumatic, normocephalic. PERRLA. Extraocular movements intact. NECK: Supple. No JVD. No adenopathy noted. CHEST: Bilaterally symmetrical. LUNGS: Scattered rhonchi. Otherwise, clear to auscultation. HEART: S1 and S2. Normal rate and rhythm. No murmurs, rubs, or gallops. ABDOMEN: Soft, nontender, nondistended. Bowel sounds present. EXTREMITIES: No clubbing. No cyanosis. Peripheral pulses are 2+ bilaterally. NEUROLOGIC: The patient is alert and oriented to person, place, not much of month and year. She is confused. Speech hypophonia. Motor exam: Moves all extremities equally. Sensory exam: Decreased light touch to pinprick up to the calves bilaterally, decreased vibration of the toes. DTRs are 2+ throughout and 1 at both knees and ankles. Coordination: Gait is deferred for now. LABORATORY DATA: Sodium is 147, potassium 3.1, chloride 111, carbon dioxide 24, BUN of 69, creatinine 1.8, random glucose 160. IMPRESSION: This is a 62-year-old woman with past medical history of hypertension, dyslipidemia, depression, anxiety, who came in for lethargy, found confused, found to have severe acute kidney injury and metabolic derangements as well as hypertensive episodes and found to have Staphylococcus aureus bacteremia and Escherichia coli in the urine. She was consulted for questionable jerking movements of the extremities and antibiotics for new onset seizure. New onset seizure could be secondary to metabolic derangement, super or underlying toxic metabolic encephalopathy and hypertensive urgency. At this time, CAT scan of the head showed no intracranial abnormalities. RECOMMENDATIONS: At this time, recommend: 1. Monitor electrolytes accordingly. 2. Follow with Nephrology recommendations with regards to acute kidney injury. 3. Keep her systolic blood pressure at 130s to 140s and diastolic 70s to 80s. 4. The patient is on meropenem, which can cause confusion. The patient already have underlying sepsis. 5. Continue with aspirin for stroke prevention. 6. Follow with IDs recommendations with regards to bacteremia and continue with Procrit and avoid any sedative medications for now. Thank you for this consult. Arnold Valentin MD
--- NOTE | 2018-08-08 20:13 | CP.PCM.CON ---
History of Present Illness - History of Present Illness History of Present Illness: 62 year old female with a history of HTN, HL, depression with recent Remeron, intubated in the field, admitted with respiratory failure s/p intubation, now extubated, UTI/bacteremia, ROBIN, with anemia and thrombocytopenia. The patient does not remember what happened to her prior to her admission. Review of her medical records shows a platelet sergio at 97,000 but was admitted with a normal platelet count. She did receive heparin. She denies abnormal bleeding and bruising. She denies blood problems in the past. Past medical history: HTN, HL, depression Past surgical history: Family history: Denies hematologic and oncologic problems Social history: Former tobacco abuse, denies alcohol, and illicit drug use. Allergies: NKA Review of systems: All remaining review of systems including HEENT, cardiovascular, respiratory, gastrointestinal, genitourinary, musculoskeletal, dermatologic, neurologic, and psychiatric are negative unless mentioned in the HPI. Past Patient History - Past Medical History & Family History Past Medical History?: Yes - Past Social History Smoking Status: Unknown If Ever Smoked - CARDIAC Hx Hypercholesterolemia: Yes Hx Hypertension: Yes - MUSCULOSKELETAL/RHEUMATOLOGICAL Hx Falls: No - PSYCHIATRIC Hx Depression: Yes Hx Substance Use: (unknown) - ANESTHESIA Hx Anesthesia: No Hx Anesthesia Reactions: No Hx Malignant Hyperthermia: No Has any member of the family had a problem w/ anesthesia?: No Meds Allergies/Adverse Reactions: Allergies Allergy/AdvReac Type Severity Reaction Status Date / Time No Known Allergies Allergy Verified 07/31/18 15:33 - Medications Medications: Current Medications Amlodipine Besylate (Norvasc) 10 mg PO DAILY [facility] Last Admin: 08/08/18 09:29 Dose: 10 mg Aspirin (Aspirin Chewable) 81 mg PO DAILY [facility] Last Admin: 08/08/18 09:29 Dose: 81 mg Epoetin Morales (Procrit) 10,000 unit SC TTS [facility] Stop: 08/09/18 10:16 Last Admin: 08/06/18 13:20 Dose: 10,000 unit Ergocalciferol (Drisdol 50,000 Intl Units Cap) 1 cap PO Q7D [facility] Last Admin: 08/02/18 14:42 Dose: 1 cap Ferrous Gluconate (Fergon) 324 mg PO TID [facility] Last Admin: 08/08/18 17:30 Dose: 324 mg Furosemide (Lasix) 20 mg PO DAILY [facility] Stop: 08/14/18 10:01 Last Admin: 08/08/18 12:50 Dose: 20 mg Meropenem 500 mg/ Sodium (Chloride) 100 mls @ 100 mls/hr IVPB Q8H [facility]; Protocol Last Admin: 08/08/18 17:31 Dose: 100 mls/hr Lorazepam (Ativan) 2 mg IVP Q2H PRN PRN Reason: Seizure activity Last Admin: 08/07/18 03:10 Dose: 2 mg Methylprednisolone (Solu-Medrol) 40 mg IVP Q12H [facility] Last Admin: 08/08/18 09:29 Dose: 40 mg Pantoprazole Sodium (Protonix Susp) 40 mg PO 0600 [facility] Last Admin: 08/08/18 05:49 Dose: 40 mg Vitamin B Complex/Vit C/Folic Acid (Nephro-Fortino) 1 tab PO 0800 [facility] Last Admin: 08/08/18 08:29 Dose: 1 tab Physical Exam - Head Exam Head Exam: ATRAUMATIC - Eye Exam Eye Exam: Normal appearance - ENT Exam ENT Exam: Mucous Membranes Dry - Respiratory Exam Respiratory Exam: NORMAL BREATHING PATTERN - Cardiovascular Exam Cardiovascular Exam: +S1, +S2 - GI/Abdominal Exam GI & Abdominal Exam: Normal Bowel Sounds - Extremities Exam Extremities exam: Positive for: pedal edema - Psychiatric Exam Psychiatric exam: Flat Affect - Skin Skin Exam: Warm Results - Vital Signs Recent Vital Signs: Last Vital Signs Temp 98.5 F 08/08/18 16:00 Pulse 88 08/08/18 18:00 Resp 18 08/08/18 16:00 BP 133/85 08/08/18 16:00 Pulse Ox 99 08/08/18 16:00 - Labs Result Diagrams: 08/08/18 06:02 08/08/18 06:02 Labs: Laboratory Results - last 24 hr 08/03/18 08/08/18 08/08/18 06:20 06:02 06:02 WBC 11.9 H RBC 2.78 L Hgb 8.8 L Hct 26.1 L MCV 93.9 MCH 31.8 H MCHC 33.8 RDW 15.1 H Plt Count 103 L MPV 11.4 Neut % (Auto) 91.3 H Lymph % (Auto) 4.3 L [place] % (Auto) 4.2 Eos % (Auto) 0.1 Baso % (Auto) 0.1 Neut # (Auto) 10.9 H Lymph # (Auto) 0.5 L [place] # (Auto) 0.5 Eos # (Auto) 0.0 Baso # (Auto) 0.0 Neutrophils % (Manual) 94 H Band Neutrophils % 1 Lymphocytes % (Manual) 3 L Monocytes % (Manual) 2 Nucleated RBC % 1 H Platelet Estimate Slightly decreased L Polychromasia Slight Hypochromasia (manual) Slight Anisocytosis (manual) Slight Sodium Potassium Chloride Carbon Dioxide Anion Gap BUN Creatinine Est GFR ( Amer) Est GFR (Non-Af Amer) Random Glucose Calcium Phosphorus Magnesium Total Bilirubin AST ALT Alkaline Phosphatase Total Creatine Kinase 61 CK-MB (Mass) 1.63 Troponin I 0.1200 Total Protein Albumin Globulin Albumin/Globulin Ratio Glomerular Base Mem IgG <1.0 08/08/18 06:02 WBC RBC Hgb Hct MCV MCH MCHC RDW Plt Count MPV Neut % (Auto) Lymph % (Auto) [place] % (Auto) Eos % (Auto) Baso % (Auto) Neut # (Auto) Lymph # (Auto) [place] # (Auto) Eos # (Auto) Baso # (Auto) Neutrophils % (Manual) Band Neutrophils % Lymphocytes % (Manual) Monocytes % (Manual) Nucleated RBC % Platelet Estimate Polychromasia Hypochromasia (manual) Anisocytosis (manual) Sodium 147 Potassium 3.1 L Chloride 111 H Carbon Dioxide 24 Anion Gap 15 BUN 69 H Creatinine 1.8 H Est GFR ( Amer) 34 Est GFR (Non-Af Amer) 29 Random Glucose 160 H Calcium 9.1 Phosphorus 3.1 Magnesium 1.8 Total Bilirubin 1.1 AST 33 ALT 46 Alkaline Phosphatase 49 Total Creatine Kinase CK-MB (Mass) Troponin I Total Protein 5.9 L Albumin 3.1 L Globulin 2.9 Albumin/Globulin Ratio 1.1 Glomerular Base Mem IgG Assessment & Plan (1) Thrombocytopenia Assessment and Plan: suspect sepsis related rule out HIT; heparin AB and serotonin release assay sent. Avoid heparin/lovenox until w/u resulted. rule out DIC; will add fibrinogen Status: Acute (2) Anemia Assessment and Plan: likely chronic disease and renal disease cont. to monitor Status: Acute (3) Leukocytosis Assessment and Plan: on antibiotics Thank you for this interesting consult. Status: Acute
[2018-08-08 21:40] LABS: CK-MB 3.06 ng/mL (0.0-3.38); TROPONIN I 0.136 ng/mL (0.00-0.120)
--- NOTE | 2018-08-08 23:02 | CARD ---
APPROVED REPORT Date of service: 08/07/2018 EKG Measurement Heart [id number] <Conclusion> Normal sinus rhythm Left ventricular hypertrophy with repolarization abnormality Abnormal ECG
[2018-08-09] MEDS: Meropenem 500 MG in Sodium Chloride 0.9% 100 ML IVPB SCH ×3 (02:16→18:08)
[2018-08-09] MEDS: Pantoprazole 40 mg Susp UD PO SCH (06:28)
[2018-08-09] MEDS: Multivitamin Vitamin B Complex (Nephro-Vite) Tab PO SCH (09:00)
[2018-08-09] MEDS: MethylPREDNISolone 40 mg Vial IVP SCH ×2 (09:01→21:26)
--- NOTE | 2018-08-09 11:43 | CP.PCM.PN ---
Subjective - Date & Time of Evaluation Date of Evaluation: 08/09/18 Time of Evaluation: 11:42 - Subjective Subjective: Nephrology Consultation Note Assessment: stable Acute Kidney Injury (N17.9) likely due to ATN: improved (work up for GN neg) Hypertensive Chronic Kidney Disease (I12.9) Hypokalemia Chronic Kidney Disease (N18.9) Stage ? with ? mg proteinuria (R80.9) likely due to HTN Anemia (D64.9), Hyperphosphatemia (E83.39) left lung collapse, UTI severe , depression/Anxiety Plan she had 1st session 07/31/18 and last HD on 08/04/18. pt refused for further dialysis. Now renal function stable with stable cr. UOP likely not accurate. continue to monitor her without dialysis Maintain hemodynamics stable. Avoid hypotension. Patient not on ACEI/ARB due to recent ROBIN Monitor Input/Output, daily weights and renal function with basic metabolic panel started Fe, MVI, epogen and weekly Vit D PRBC as needed added lasix 20 mg/day consider heme eval for anemia, cardiology eval for Check urine analysis, spot protein/creatinine, albumin/creatinine ratio. Pending renal sonogram. CPK Check GN work up as C3, C4, LINDSEY, Anti dsDNA, ASO titers, ANCA (MPO and IN-3), Anti GBM antibody, HIV Anemia work up with TSAT/Ferritin/Vitamin B12/folate, serum protein electrophoresis with immunofixation, serum free light chain assay ([place]/Lambda) Check for 25-OH vitamin D, iPTH, phosphorus level. Dose meds/antibiotics for reduced GFR. Avoid fleets enema/magnesium based laxatives. Avoid nephrotoxins/NSAIDs/ iodinated contrast (unless needed emergently) Glycemic control Further work up for as per primary team Thanks for allowing me to participate in care of your patient. Will follow patient with you. Please call if any Qs. had d/w team Dr Heriberto Hernandez Office: [phone] Subjective: Noted events overnight. Patients says feels okay. denies CP/SOB. refused HD or catheter insertion Physical Examination: General Appearance: Comfortable, in no acute respiratory distress Vitals reviewed and noted as below Head; Atraumatic, normocephalic ENT: WNL EYES: Pupils are equal, round and reactive to light accommodation. Eye muscles and extraocular movement intact. Sclera is anicteric. Neck; supple no lymphadenopathy, no thyromegaly or bruit Lungs: Normal respiratory rate/effort. Breath sounds b/l improved. has left side crackles Heart: normal rate. s1s2 normal. No rub or gallop. SM + at apex/LSB Extremities: 1+ edema. No varicose veins Neurological: Patient is alert awake oriented x 2 follow commands Skin: Warm and dry. Normal turgor. No rash. Palpitation: Normal elasticity for age Abdomen: Abdomen is soft. Bowel sounds +. There is no abdominal tenderness, no guarding/rigidity no organomegaly Psych: limited insight. MSK: no joint tenderness or swelling. Digits and nails normal, no deformity : kidney or bladder not palpable access: none Labs/imaging reviewed. Past medical history, past surgical history, family history, social history, allergy reviewed and noted as below Family hx: no hx of CKD. Rest non-contributory work up: CXR: left lung collapse Hep B/C neg UA 2+ protein 1+ blood Objective - Vital Signs/Intake and Output Vital Signs (last 24 hours): Temp Pulse Resp BP Pulse Ox 98.8 F 83 20 151/86 H 99 08/09/18 08:00 08/09/18 10:00 08/09/18 08:00 08/09/18 09:00 08/09/18 08:00 Intake and Output: 08/09/18 08/09/18 06:59 18:59 Intake Total 300 Output Total 600 Balance -300 - Medications Medications: Current Medications Amlodipine Besylate (Norvasc) 10 mg PO DAILY [facility] Last Admin: 08/09/18 09:01 Dose: 10 mg Aspirin (Aspirin Chewable) 81 mg PO DAILY [facility] Last Admin: 08/09/18 09:00 Dose: 81 mg Ergocalciferol (Drisdol 50,000 Intl Units Cap) 1 cap PO Q7D [facility] Last Admin: 08/02/18 14:42 Dose: 1 cap Ferrous Gluconate (Fergon) 324 mg PO TID [facility] Last Admin: 08/09/18 09:00 Dose: 324 mg Furosemide (Lasix) 20 mg PO DAILY [facility] Stop: 08/14/18 10:01 Last Admin: 08/09/18 09:00 Dose: 20 mg Meropenem 500 mg/ Sodium (Chloride) 100 mls @ 100 mls/hr IVPB Q8H [facility]; Protocol Last Admin: 08/09/18 10:00 Dose: 100 mls/hr Lorazepam (Ativan) 2 mg IVP Q2H PRN PRN Reason: Seizure activity Last Admin: 08/07/18 03:10 Dose: 2 mg Methylprednisolone (Solu-Medrol) 40 mg IVP Q12H [facility] Last Admin: 08/09/18 09:01 Dose: 40 mg Pantoprazole Sodium (Protonix Susp) 40 mg PO 0600 [facility] Last Admin: 08/09/18 06:28 Dose: 40 mg Vitamin B Complex/Vit C/Folic Acid (Nephro-Fortino) 1 tab PO 0800 [facility] Last Admin: 08/09/18 09:00 Dose: 1 tab - Labs Labs: 08/08/18 06:02 08/08/18 06:02 PT 12.6 SECONDS (9.7-12.2) H 08/03/18 14:50 INR 1.2 08/03/18 14:50 APTT 26 SECONDS (21-34) D 08/05/18 06:31
--- NOTE | 2018-08-09 12:31 | CP.PCM.PN ---
Subjective - Date & Time of Evaluation Date of Evaluation: 08/09/18 Time of Evaluation: 07:00 - Subjective Subjective: awake alert in ICU 6 NAD Objective - Vital Signs/Intake and Output Vital Signs (last 24 hours): Temp Pulse Resp BP Pulse Ox 98.8 F 83 20 151/86 H 99 08/09/18 08:00 08/09/18 10:00 08/09/18 08:00 08/09/18 09:00 08/09/18 08:00 Intake and Output: 08/09/18 08/09/18 06:59 18:59 Intake Total 300 Output Total 600 Balance -300 - Medications Medications: Current Medications Amlodipine Besylate (Norvasc) 10 mg PO DAILY [facility] Last Admin: 08/09/18 09:01 Dose: 10 mg Aspirin (Aspirin Chewable) 81 mg PO DAILY [facility] Last Admin: 08/09/18 09:00 Dose: 81 mg Ergocalciferol (Drisdol 50,000 Intl Units Cap) 1 cap PO Q7D [facility] Last Admin: 08/02/18 14:42 Dose: 1 cap Ferrous Gluconate (Fergon) 324 mg PO TID [facility] Last Admin: 08/09/18 09:00 Dose: 324 mg Furosemide (Lasix) 20 mg PO DAILY [facility] Stop: 08/14/18 10:01 Last Admin: 08/09/18 09:00 Dose: 20 mg Meropenem 500 mg/ Sodium (Chloride) 100 mls @ 100 mls/hr IVPB Q8H [facility]; Protocol Last Admin: 08/09/18 10:00 Dose: 100 mls/hr Lorazepam (Ativan) 2 mg IVP Q2H PRN PRN Reason: Seizure activity Last Admin: 08/07/18 03:10 Dose: 2 mg Methylprednisolone (Solu-Medrol) 40 mg IVP Q12H [facility] Last Admin: 08/09/18 09:01 Dose: 40 mg Pantoprazole Sodium (Protonix Susp) 40 mg PO 0600 [facility] Last Admin: 08/09/18 06:28 Dose: 40 mg Vitamin B Complex/Vit C/Folic Acid (Nephro-Fortino) 1 tab PO 0800 [facility] Last Admin: 08/09/18 09:00 Dose: 1 tab - Labs Labs: 08/08/18 06:02 08/08/18 06:02 PT 12.6 SECONDS (9.7-12.2) H 08/03/18 14:50 INR 1.2 08/03/18 14:50 APTT 26 SECONDS (21-34) D 08/05/18 06:31 - Constitutional Appears: Non-toxic, Chronically Ill - Head Exam Head Exam: NORMOCEPHALIC - Eye Exam Eye Exam: PERRL - ENT Exam ENT Exam: Mucous Membranes Dry - Neck Exam Neck Exam: absent: Lymphadenopathy - Respiratory Exam Respiratory Exam: Decreased Breath Sounds - Cardiovascular Exam Cardiovascular Exam: REGULAR RHYTHM - GI/Abdominal Exam GI & Abdominal Exam: Distended, Soft - Rectal Exam Rectal Exam: Deferred - Exam Exam: NORMAL INSPECTION Assessment and Plan (1) Acute kidney injury Status: Acute (2) Closed fracture of right proximal humerus Status: Acute (3) Metabolic acidosis Status: Acute (4) Respiratory failure Status: Acute (5) Rhabdomyolysis Status: Acute - Assessment and Plan (Free Text) Assessment: cont iv rx for min 14 days
--- NOTE | 2018-08-09 12:51 | CP.PCM.CON ---
History of Present Illness - History of Present Illness History of Present Illness: Palliative consult requested wilmer Cruz for goals of care discussion Patient is a 62 yo female admitted from home where was found unresponsive by EMS. Per ER record, patient's son noticed her being altered and forgetful and called 911. Patient initially refused to go. Few hours later patient become more lethargic and found by EMS unresponsive. Patient intubated on the fild and transffered to ED. In ED [employer] 96, emergency HD given. Further care provided by ICU team. Patient wound with E coli in the urine and Staph infection in the blood. IV antibiotics on the board. During hospital's stay condition improved, patient was extubated and diet advanced. Per Doctor David, Nephrology, no further HD needed . Patient reported to nursing " she had signed DNR document " in the past with her PMD but did not know where was it. Palliative care called to assist in process if discussing Code status. PMH: HDL, depression, recently started on Remeron PO So. Hx: , lives at home with 2 sons and nephew, denies drugs/ETOH abuse Fam. hx: denied Review of Systems - Constitutional Constitutional: absent: As Per HPI, Anorexia, Chills, Daytime Sleepiness, Excessive Sweating, Fatigue, Fever, Frequent Falls, Headache, Increased Appetite, Lethargy, Malaise, Night Sweats, Snoring, Sleep Apnea, Weight Gain, Weight Loss, Weakness, Other - EENT Eyes: absent: As Per HPI, Blind Spots, Blurred Vision, Change in Vision, Decreased Night Vision, Diplopia, Discharge, Dry Eye, Exophthalmos, Floaters, Irritation, Itchy Eyes, Loss of Peripheral Vision, Pain, Photophobia, Requires Corrective Lenses, Sees Flashes, Spots in Vision, Tunnel Vision, Other Visual Disturbances, Loss of Vision, Other Ears: absent: As Per HPI, Decreased Hearing, Ear Discharge, Ear Pain, Tinnitus, Abnormal Hearing, Disequilibrium, Dizziness, Other Nose/Mouth/Throat: absent: As Per HPI, Epistaxis, Nasal Congestion, Nasal Discharge, Nasal Obstruction, Nasal Trauma, Nose Pain, Post Nasal Drip, Sinus Pain, Sinus Pressure, Bleeding Gums, Change in Voice, Dental Pain, Dry Mouth, Dysphagia, Halitosis, Hoarsness, Lip Swelling, Mouth Lesions, Mouth Pain, Odynophagia, Sore Throat, Throat Swelling, Tongue Swelling, Facial Pain, Neck Pain, Neck Mass, Other - Breasts Breasts: absent: As Per HPI, Change in Shape, Mass, Pain, Nipple Discharge, Nipple Inversion, Skin Changes, Swelling, Other - Cardiovascular Cardiovascular: absent: As Per HPI, Acrocyanosis, Chest Pain, Chest Pain at Rest, Chest Pain with Activity, Claudication, Diaphoresis, Dyspnea, Dyspnea on Exertion, Edema, Irregular Heart Rhythm, Pain Radiating to Arm/Neck/Jaw, Leg Edema, Leg Ulcers, Lightheadedness, Orthopnea, Palpitations, Paroxysmal Nocturnal Dyspnea, Pedal Edema, Radiating Pain, Rapid Heart Rate, Slow Heart Rate, Syncope, Other - Respiratory Respiratory: absent: As Per HPI, Cough, Dyspnea, Hemoptysis, Dyspnea on Exertion, Wheezing, Snoring, Stridor, Pain on Inspiration, Chest Congestion, Excessive Mucous Production, Change in Mucous Color, Pain with Coughing, Other - Gastrointestinal Gastrointestinal: absent: As Per HPI, Abdominal Pain, Belching, Bloating, Change in Bowel Habits, Change in Stool Character, Coffee Ground Emesis, Constipation, Cramping, Diarrhea, Dyspepsia, Dysphagia, Early Satiety, Excessive Flatus, Fecal Incontinence, Heartburn, Hematemesis, Hematochezia, Loose Stools, Melena, Nausea, Odynophagia, Temesmus, Vomiting, Other - Genitourinary Genitourinary: absent: As Per HPI, Change in Urinary Stream, Difficulty Urinating, Dysuria, Flank Pain, Hematuria, Pyuria, Nocturia, Urinary Incontinence, Urinary Frequency, Urinary Hesitance, Urinary Urgency, Voiding Freq/Small Amts, Freq UTI, Hx Renal/Bladder Calculi, Hx /Renal Surgery, Bladder Distension, Other - Reproductive: Female Reproductive:Female: Post Menopausal - Menstruation Menstruation: Post Menopausal - Musculoskeletal Musculoskeletal: absent: As Per HPI, Abnormal Gait, Arthralgias, Atrophy, Back Pain, Deformity, Joint Swelling, Limited Range of Motion, Loss of Height, Muscle Cramps, Muscle Weakness, Myalgias, Neck Pain, Numbness, Radiating Pain into Limb, Stiffness, Tingling, Other - Integumentary Integumentary: Dry Skin - Neurological Neurological: Confusion - Psychiatric Psychiatric: Anxiety - Endocrine Endocrine: absent: As Per HPI, Change in Body Appearance, Change in Libido, Cold Intolorance, Deepening of Voice, Excessive Sweating, Fatigue, Flushing, Heat Intolorance, Increase in Ring/Shoe/Hat Size, Palpitations, Polydipsia, Polyphagia, Polyuria, Other - Hematologic/Lymphatic Hematologic: absent: As Per HPI, Easy Bleeding, Easy Bruising, Lymphadenopathy, Other Past Patient History - Past Medical History & Family History Past Medical History?: Yes - Past Social History Smoking Status: Unknown If Ever Smoked - CARDIAC Hx Hypercholesterolemia: Yes Hx Hypertension: Yes - MUSCULOSKELETAL/RHEUMATOLOGICAL Hx Falls: No - PSYCHIATRIC Hx Depression: Yes Hx Substance Use: (unknown) - ANESTHESIA Hx Anesthesia: No Hx Anesthesia Reactions: No Hx Malignant Hyperthermia: No Has any member of the family had a problem w/ anesthesia?: No Meds Allergies/Adverse Reactions: Allergies Allergy/AdvReac Type Severity Reaction Status Date / Time No Known Allergies Allergy Verified 07/31/18 15:33 - Medications Medications: Current Medications Amlodipine Besylate (Norvasc) 10 mg PO DAILY [facility] Last Admin: 08/09/18 09:01 Dose: 10 mg Aspirin (Aspirin Chewable) 81 mg PO DAILY [facility] Last Admin: 08/09/18 09:00 Dose: 81 mg Ergocalciferol (Drisdol 50,000 Intl Units Cap) 1 cap PO Q7D [facility] Last Admin: 08/02/18 14:42 Dose: 1 cap Ferrous Gluconate (Fergon) 324 mg PO TID [facility] Last Admin: 08/09/18 09:00 Dose: 324 mg Furosemide (Lasix) 20 mg PO DAILY [facility] Stop: 08/14/18 10:01 Last Admin: 08/09/18 09:00 Dose: 20 mg Meropenem 500 mg/ Sodium (Chloride) 100 mls @ 100 mls/hr IVPB Q8H [facility]; Protocol Last Admin: 08/09/18 10:00 Dose: 100 mls/hr Lorazepam (Ativan) 2 mg IVP Q2H PRN PRN Reason: Seizure activity Last Admin: 08/07/18 03:10 Dose: 2 mg Methylprednisolone (Solu-Medrol) 40 mg IVP Q12H [facility] Last Admin: 08/09/18 09:01 Dose: 40 mg Pantoprazole Sodium (Protonix Susp) 40 mg PO 0600 [facility] Last Admin: 08/09/18 06:28 Dose: 40 mg Vitamin B Complex/Vit C/Folic Acid (Nephro-Fortino) 1 tab PO 0800 [facility] Last Admin: 08/09/18 09:00 Dose: 1 tab Physical Exam - Constitutional Appears: No Acute Distress, Chronically Ill - Head Exam Head Exam: ATRAUMATIC, NORMAL INSPECTION, NORMOCEPHALIC - Eye Exam Eye Exam: EOMI, Normal appearance, PERRL Pupil Exam: NORMAL ACCOMODATION, PERRL - ENT Exam ENT Exam: Mucous Membranes Moist, Normal Exam - Neck Exam Neck exam: Positive for: Normal Inspection - Respiratory Exam Respiratory Exam: Clear to Auscultation Bilateral, NORMAL BREATHING PATTERN - Cardiovascular Exam Cardiovascular Exam: Tachycardia, REGULAR RHYTHM - GI/Abdominal Exam GI & Abdominal Exam: Normal Bowel Sounds, Soft - Rectal Exam Rectal Exam: Deferred - Extremities Exam Extremities exam: Positive for: pedal edema - Back Exam Back exam: NORMAL INSPECTION - Neurological Exam Neurological exam: Alert, Oriented x3 - Psychiatric Exam Psychiatric exam: Agitated, Anxious - Skin Skin Exam: Pallor Results - Vital Signs Recent Vital Signs: Last Vital Signs Temp 98.8 F 08/09/18 08:00 Pulse 83 08/09/18 10:00 Resp 20 08/09/18 08:00 BP 151/86 H 08/09/18 09:00 Pulse Ox 99 08/09/18 08:00 - Labs Result Diagrams: 08/08/18 06:02 08/08/18 06:02 Labs: Laboratory Results - last 24 hr 08/08/18 08/09/18 21:06 06:30 Total Creatine Kinase 47 CK-MB (Mass) 3.06 Troponin I 0.1360 H* Folate 11.3 Assessment & Plan - Assessment and Plan (Free Text) Assessment: palliative consult Full Code prior to consult, no advance directive on chart, PPS 40% I reviewed Medical records, all diagnostic studies, examined patient in the bed Patient is alert, oriented X 3 with mild forgetfulness and speech that is clear. Prior to my exam, patient was heard arguing and yelling. Per nursing there was no apparent reason. Patient told me that sometimes " she could not stand people'. Skin is pale, Hb 8.8. Breathing is regular, denies SOB/chest pain. Abdomen soft, denies pain , reports fair appetite. urinates using commode. Denies dysuria, hematuria or anuria. I spoke to Doctor Hernandez who aid that most likely patient will not need further HD.Patient is able to move all extremities. Needs limited assistance in OOB to chair. BP 151/86, HR 87, O2Sat 98 % RA [employer] 1.8, Hb 8.8 Goals of care discussed with patient. Patient was not sure what prompted her admission. She recalls her son telling her she was unresponsive at home. Patient denies similar accidents in the past. I reviewed with her most recent results and therapy given and made her aware that no further HD would be needed. She was happy to hear it. Code status discussed. Patient stated in the past she signed " do not resuscitate" paper with her PMD. I purposely asked patient to clarify meaning of it for me. Very clearly patient stated that if her condition further worsens she would not want to have her life prolonged by aggressive measures including CPR and Intubation. I questioned the document she stated she signed in the past. Patient could not remember where she left it and asked for new Document to be completed. POLST introduced and additional information on DNR/DNI provided. Patient chose DNR/DNI. This was shared with nursing. I spoke to Doctor Tiana about patient's , this morning kind of anxiety attack and she asked me to order Psychiatry consult with Doctor Edmondson, what I did. Impression * AMS most likely due to UTI and sepsis * Acute renal failure corrected by HD X 1 * Anemia * Unstable mood, gets easily aggravated * States signing DNR/DNI in the past with her PMD Suggestions * Promote safety * Psych consult with Doctor Edmondson * Transfuse blood if Hb < 8.0 * DNR/DNI * POLST on chart Palliative care will continue to fallow up with patient as needed. Advance care planing time 55 min
--- NOTE | 2018-08-09 13:10 | CP.PCM.PN ---
<Castillo Hernandes - Last Filed: 08/09/18 15:24> Subjective - Date & Time of Evaluation Date of Evaluation: 08/09/18 Time of Evaluation: 13:50 - Subjective Subjective: Cardiology Progress Note Patient seen and examined at bedside. No acute events reported overnight. Patient is resting in bed comfortably. Patient denies having shortness of breath or chest pain. Objective - Vital Signs/Intake and Output Vital Signs (last 24 hours): Temp Pulse Resp BP Pulse Ox 98.8 F 83 20 151/86 H 99 08/09/18 08:00 08/09/18 10:00 08/09/18 08:00 08/09/18 09:00 08/09/18 08:00 Intake and Output: 08/09/18 08/09/18 06:59 18:59 Intake Total 300 Output Total 600 Balance -300 - Medications Medications: Current Medications Amlodipine Besylate (Norvasc) 10 mg PO DAILY [facility] Last Admin: 08/09/18 09:01 Dose: 10 mg Aspirin (Aspirin Chewable) 81 mg PO DAILY [facility] Last Admin: 08/09/18 09:00 Dose: 81 mg Ergocalciferol (Drisdol 50,000 Intl Units Cap) 1 cap PO Q7D [facility] Last Admin: 08/02/18 14:42 Dose: 1 cap Ferrous Gluconate (Fergon) 324 mg PO TID [facility] Last Admin: 08/09/18 09:00 Dose: 324 mg Furosemide (Lasix) 20 mg PO DAILY [facility] Stop: 08/14/18 10:01 Last Admin: 08/09/18 09:00 Dose: 20 mg Meropenem 500 mg/ Sodium (Chloride) 100 mls @ 100 mls/hr IVPB Q8H [facility]; Protocol Last Admin: 08/09/18 10:00 Dose: 100 mls/hr Lorazepam (Ativan) 2 mg IVP Q2H PRN PRN Reason: Seizure activity Last Admin: 08/07/18 03:10 Dose: 2 mg Methylprednisolone (Solu-Medrol) 40 mg IVP Q12H [facility] Last Admin: 08/09/18 09:01 Dose: 40 mg Pantoprazole Sodium (Protonix Susp) 40 mg PO 0600 [facility] Last Admin: 08/09/18 06:28 Dose: 40 mg Vitamin B Complex/Vit C/Folic Acid (Nephro-Fortino) 1 tab PO 0800 [facility] Last Admin: 08/09/18 09:00 Dose: 1 tab - Labs Labs: 08/08/18 06:02 08/08/18 06:02 PT 12.6 SECONDS (9.7-12.2) H 08/03/18 14:50 INR 1.2 08/03/18 14:50 APTT 26 SECONDS (21-34) D 08/05/18 06:31 - Constitutional Appears: Well, No Acute Distress - Head Exam Head Exam: ATRAUMATIC, NORMAL INSPECTION, NORMOCEPHALIC - Eye Exam Eye Exam: EOMI, Normal appearance Pupil Exam: NORMAL ACCOMODATION - ENT Exam ENT Exam: Mucous Membranes Moist, Normal Exam - Neck Exam Neck Exam: Full ROM, Normal Inspection. absent: Lymphadenopathy - Respiratory Exam Respiratory Exam: Clear to Ausculation Bilateral, NORMAL BREATHING PATTERN. absent: Wheezes - Cardiovascular Exam Cardiovascular Exam: +S1, +S2, Murmur (systolic murmur) - GI/Abdominal Exam GI & Abdominal Exam: Soft, Normal Bowel Sounds. absent: Tenderness - Rectal Exam Rectal Exam: NORMAL INSPECTION - Extremities Exam Extremities Exam: Full ROM, Normal Capillary Refill, Normal Inspection. absent: Joint Swelling, Pedal Edema - Back Exam Back Exam: NORMAL INSPECTION - Neurological Exam Neurological Exam: Alert, Awake, CN II-XII Intact, Oriented x3 - Psychiatric Exam Psychiatric exam: Normal Mood - Skin Skin Exam: Dry, Intact, Warm Assessment and Plan - Assessment and Plan (Free Text) Assessment: Aortic stenosis -Significant systolic murmur appreciated at left sternal boarder -RIAN scheduled for tomorrow -NPO past midnight -Echo shows normal EF, consider sever subvalvular Hypertension -Norvasc 10mg -Patient not on BRADEN inhibitor or ARB due to recent ROBIN Case discussed with attending Dr. Terrazas <Tye Terrazas - Last Filed: 08/10/18 00:49> Objective - Vital Signs/Intake and Output Vital Signs (last 24 hours): Temp Pulse Resp BP Pulse Ox 98.2 F 91 H 17 132/90 98 08/10/18 00:00 08/10/18 00:28 08/10/18 00:00 08/10/18 00:00 08/10/18 00:00 Intake and Output: 08/09/18 08/10/18 18:59 06:59 Intake Total 700 Output Total 200 Balance 500 - Medications Medications: Current Medications Amlodipine Besylate (Norvasc) 10 mg PO DAILY [facility] Last Admin: 08/09/18 09:01 Dose: 10 mg Aspirin (Aspirin Chewable) 81 mg PO DAILY [facility] Last Admin: 08/09/18 09:00 Dose: 81 mg Ergocalciferol (Drisdol 50,000 Intl Units Cap) 1 cap PO Q7D [facility] Last Admin: 08/09/18 14:07 Dose: 1 cap Ferrous Gluconate (Fergon) 324 mg PO TID [facility] Last Admin: 08/09/18 18:08 Dose: 324 mg Furosemide (Lasix) 20 mg PO DAILY [facility] Stop: 08/14/18 10:01 Last Admin: 08/09/18 09:00 Dose: 20 mg Meropenem 500 mg/ Sodium (Chloride) 100 mls @ 100 mls/hr IVPB Q8H [facility]; Protocol Last Admin: 08/09/18 18:08 Dose: 100 mls/hr Lorazepam (Ativan) 2 mg IVP Q2H PRN PRN Reason: Seizure activity Last Admin: 08/07/18 03:10 Dose: 2 mg Methylprednisolone (Solu-Medrol) 40 mg IVP Q12H [facility] Last Admin: 08/09/18 21:26 Dose: 40 mg Pantoprazole Sodium (Protonix Susp) 40 mg PO 0600 [facility] Last Admin: 08/09/18 06:28 Dose: 40 mg Vitamin A (Vitamin A & D Oint Ud Foilpak) 1 ea TOP BID PRN PRN Reason: Dry skin Last Admin: 08/09/18 21:28 Dose: 1 ea Vitamin B Complex/Vit C/Folic Acid (Nephro-Fortino) 1 tab PO 0800 [facility] Last Admin: 08/09/18 09:00 Dose: 1 tab - Labs Labs: 08/08/18 06:02 08/08/18 06:02 PT 12.6 SECONDS (9.7-12.2) H 08/03/18 14:50 INR 1.2 08/03/18 14:50 APTT 26 SECONDS (21-34) D 08/05/18 06:31 Assessment and Plan - Assessment and Plan (Free Text) Plan: Patient see and evaluated personally by me Plan of care d/w the senior medical technologist and as documented RIAN in am
[2018-08-09] MEDS: Ergocalciferol 50,000 Intl Units Cap PO SCH (14:07)
[2018-08-09] MEDS: Epoetin Alfa 10,000 unit/ml Dialysis SC SCH (15:13)
[2018-08-09] MEDS: Vitamins A & D Oint UD Foilpak TOP PRN (21:28)
--- NOTE | 2018-08-09 23:06 | PCM.PSYCH ---
Initial Psychiatric Evaluation - Initial Psychiatric Evaluation Type of Admission: Voluntary Legal Status: Capacity Chief Complaint (in patient's own words): i am feeling brandi.' History of Present Illness and Precipitating Events: Patient is a 62-year-old female, with 3 adult sons. Patient is on disability and lives in [place]. Patient was initially brought to the hospital by his son because of patients altered mental status, drowsiness, and unresponsiveness. Patient is admitted to ICU for acute renal and respiratory failure. Patient is oriented to the person and place, but not to the time. She answered correctly to the questions about the location of the hospital, hospitals name, and the city where she lives in but she could not give an answer for todays date. She stated that we are in 2015 and the president of the [place] is [place]. Patient also could not remember why she was brought to the hospital. Patient have decreased long and short time memories. She could not remember why her , and she forgot her grandchildrens names. She seems to be distressed when she cannot remember things. Patients has limited attention. She could not perform simple subtraction calculations and could not spell the word world backwards. She does not have any language problem. She understands and gives appropriate answers. Patient reports that she is a high school graduate. Patient could not perform the clock drawing test initially and denied to continue. He also reports of [facility] - seeing people in her room, and AH, people are talking to her. Patient states that she feels good. She denies feeling depressed, nervous, hopeless, or helpless. She also denies having any suicidal or homicidal ideations. She states that she sleeps well. Patient reports that she does not use any drugs or smoke cigarettes. She drinks alcohol socially. Pscyh Hx; denies Medical hx: Asthma, HTN, hyperlipidemia Family hx: denies Current Medications: Active Medications Generic Name Dose Route Start Last Admin Trade Name Freq PRN Reason Stop Dose Admin Amlodipine Besylate 10 mg 08/07/18 11:45 08/09/18 09:01 Norvasc PO 10 mg DAILY [facility] Administration Aspirin 81 mg 08/08/18 10:00 08/09/18 09:00 Aspirin Chewable PO 81 mg DAILY [facility] Administration Ergocalciferol 1 cap 08/02/18 14:15 08/09/18 14:07 Drisdol 50,000 Intl Units Cap PO 1 cap Q7D [facility] Administration Ferrous Gluconate 324 mg 08/02/18 14:00 08/09/18 18:08 Fergon PO 324 mg TID [facility] Administration Furosemide 20 mg 08/08/18 12:15 08/09/18 09:00 Lasix PO 08/14/18 10:01 20 mg DAILY [facility] Administration Meropenem 500 mg/ Sodium 100 mls @ 100 mls/hr 08/04/18 02:00 08/09/18 18:08 Chloride IVPB 100 mls/hr Q8H [facility] Administration Protocol Lorazepam 2 mg 08/07/18 02:50 08/07/18 03:10 Ativan IVP 2 mg Q2H PRN Administration Seizure activity Methylprednisolone 40 mg 08/01/18 10:00 08/09/18 21:26 Solu-Medrol IVP 40 mg Q12H [facility] Administration Pantoprazole Sodium 40 mg 08/01/18 06:00 08/09/18 06:28 Protonix Susp PO 40 mg 0600 [facility] Administration Vitamin A 1 ea 08/09/18 19:49 08/09/18 21:28 Vitamin A & D Oint Ud Foilpak TOP 1 ea BID PRN Administration Dry skin Vitamin B Complex/Vit C/Folic Acid 1 tab 08/03/18 08:00 08/09/18 09:00 Nephro-Fortino PO 1 tab 0800 [facility] Administration Past Psychiatric History - Past Psychiatric History Previous Treatment History: None Pertinent Medical Hx (Current Medical&Sleep Prob, Allergies): Allergies Allergy/AdvReac Type Severity Reaction Status Date / Time No Known Allergies Allergy Verified 07/31/18 15:33 Cozaar 100 mg PO DAILY 07/31/18 Hydrochlorothiazide 12 mg PO DAILY 07/31/18 Metoprolol 1 tab PO 07/31/18 Metoprolol Succinate XL [Toprol XL] 25 mg PO DAILY 07/31/18 Remeron 15 mg PO HS 07/31/18 hydroCHLOROthiazide [Microzide] 12.5 mg PO DAILY 07/31/18 Review of Systems - Review of Systems All systems: reviewed and no additional remarkable complaints except - Psychiatric Psychiatric: Anxiety, Auditory Hallucinations, Irritability, Paranoia Mental Status Examination - Personal Presentation Personal Presentation: Looks stated age - Affect Affect: Constricted - Motor Activity Motor Activity: Calm - Reliability in Providing Information Reliability in Providing Information: Poor, due to alteration in thoughts, Poor, due to altered mood - Speech Speech: Disorganized - Mood Mood: Anxious - Formal Thought Process Formal Thought Process: Hallucinations, Delusions, Paranoia - Hallucinations/Delusions Hallucinations: Visual, Auditory Delusions: Persecution - Obsessions/Compulsions Obsessions: No Compulsions: No - Cognitive Functions Orientation: Person, Place Sensorium: Alert Attention/Concentration: Easily distracted Abstract Thinking: [place] Estimate of Intelligence: Below average Judgement: Imparied, as evidence by: Poor judgement, Imparied, as evidence by: Lack of insight into illness - Risk Risk: Diminished functioning - Limitations Limitations: Living alone DSM 5 DX - DSM 5 DSM 5 Diagnosis: Delirium due to medical condition - Recommended/Plan of Treatment Treatment Recommendations and Plan of Treatment: Delirium due to medical condition Pt appears delirious, psych will follow up.
[2018-08-10] MEDS: Meropenem 500 MG in Sodium Chloride 0.9% 100 ML IVPB SCH ×2 (01:21→10:40)
--- NOTE | 2018-08-10 04:19 | PN ---
DATE: 08/08/2018 SUBJECTIVE: The patient is a 62-year-old female. The patient was seen and examined at the bedside on 08/08/2018 in the ICU. She is on telemetry bed of ICU, looking comfortable. No fever. No chills. No nausea, vomiting, or diarrhea. No hematuria, no hematochezia. No swelling of the legs. No chest pain or palpitation. PHYSICAL EXAMINATION: VITALS: Temperature 98.9, pulse 75, blood pressure 116/88, respiratory rate 18, and oxygen saturation 99% on room air. HEENT: Head, normocephalic and atraumatic. Eyes, PERRLA. Extraocular movements are intact. Conjunctivae clear. Nose patent. Mucous membranes are moist. NECK: Supple. No carotid bruits, JVD, or thyromegaly. CHEST: Bilaterally symmetrical. HEART: S1 and S2 positive. LUNGS: Clear to auscultation. ABDOMEN: Soft. Bowel sounds are positive. No organomegaly. EXTREMITIES: No edema, no cyanosis. NEUROLOGIC: The patient is awake and alert, obeys simple orders. LABORATORY DATA: Sodium is 147, potassium 3.1, chloride 111, BUN 69, creatinine 1.8, glucose 150. ASSESSMENT AND PLAN: Ms. Romy Feng is a 62-year-old female with past medical history of hypertension, dyslipidemia, depression, anxiety, was confused, has acute kidney injury and metabolic derangement, hypertension episode, has Staphylococcus aureus bacteremia and Escherichia coli in the urine. She was consulted for questionable jerking movements of the extremities and antibiotics. For new onset of seizure, the neurology consult was called. According to Neurology, new-onset seizure could be secondary to metabolic derangement or underlying metabolic encephalopathy and hypertensive urgency. CAT scan of the head shows no intracranial abnormalities. Kidney function test is improving though slowly. Plan is to continue monitoring electrolytes. Actually, the patient refused dialysis. Discussion was done with the personnel supervisor, and according to personnel supervisor, now we do not need dialysis because kidney function is improving. The patient is on meropenem which also can cause confusion. The patient already has underlying sepsis. Continue aspirin for stroke prevention. Gastrointestinal and deep venous thrombosis prophylaxis. Repeat laboratories. We will follow up. Pina Montiel MD [facility] # [id number]
--- NOTE | 2018-08-10 04:59 | PN ---
DATE: 08/08/2018 SUBJECTIVE: The patient is a 62-year-old female. The patient was seen and examined at the bedside. Looking comfortable. No events happened overnight. No shortness of breath. No nausea, vomiting, or diarrhea. No hematuria or hematochezia. No swelling of the legs. No chest pain or palpitation. No headache or dizziness. PHYSICAL EXAMINATION: VITAL SIGNS: Temperature 98.8, pulse 83, respiratory rate 20, blood pressure 150/86, and pulse oximetry 99. HEENT: Head, normocephalic and atraumatic. Eyes, PERRLA. Extraocular movements intact. Conjunctivae clear. Nose patent. NECK: Supple. No carotid bruit, JVD, or thyromegaly. CHEST: Bilaterally symmetrical. HEART: S1 and S2 positive. LUNGS: Clear to auscultation. ABDOMEN: Soft. Bowel sounds present. No organomegaly. EXTREMITIES: No edema and no cyanosis except left upper extremity. NEUROLOGICAL: The patient is awake, alert. Moving all four extremities. No focal deficit. Follows simple orders. MEDICATIONS: Norvasc, aspirin, vitamin D, Fergon, Lasix, meropenem, Ativan, Solu-Medrol, Protonix, and vitamins. LABORATORY DATA: White blood cells 11.9, hemoglobin 8.8, hematocrit 26.1, platelets 106. Sodium 147, potassium 3.1, BUN 69, creatinine 1.8, glucose 150. ASSESSMENT AND PLAN: Ms. Romy Feng is a 62-year-old lady with leukocytosis, anemia, hyperglycemia, hypokalemia, hyperchloremia, and renal insufficiency. The patient has aortic stenosis and significant systolic murmur appreciated at the left sternal border. As per Dr. Terrazas, transesophageal echocardiography is scheduled for tomorrow and after midnight, echocardiography shows normal ejection fraction, consider severe subvalvular aortic stenosis. History of hypertension, getting Norvasc. The patient is not on angiotensin-converting enzyme inhibitor or angiotensin receptor nora due to recent acute kidney injury. Appreciated stapler hand's input. The patient was treated for renal insufficiency, improving very slowly. Palliative team saw the patient. Goals of care discussion done. The patient still has hypercholesterolemia and depression, recently started on Remeron. Came with altered mental status due to urinary tract infection and sepsis. Acute renal failure, corrected by hemodialysis for one day. Anemia. Unstable mood, gets easily ,Do Not Resuscitate/Do Not Intubate in the past with her primary medical doctor, but we are not able to get the copy from family or pcp. Do Not Resuscitate/Do Not Intubate. Gastrointestinal and deep venous thrombosis prophylaxis. Repeat labs. We will follow up. Pina Montiel MD MTDD
[2018-08-10] MEDS: Pantoprazole 40 mg Susp UD PO SCH (05:26)
[2018-08-10] MEDS ORDERED: Lidocaine 4% (Laryng-O-Jet) Kit MM ONE (07:39)
[2018-08-10] MEDS ORDERED: Etomidate 20 mg/10ml Inj IV ONE (08:11)
[2018-08-10] MEDS ORDERED: Propofol 10 mg/ml Inj (20 ML) ONE (08:11)
[2018-08-10] MEDS ORDERED: ePHEDrine 50 mg/ml Inj ONE (08:12)
[2018-08-10] MEDS ORDERED: Phenylephrine 10 mg/ml Inj ONE (08:12)
--- NOTE | 2018-08-10 09:29 | CP.PCM.PN ---
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 CT surgery evaluation for possible MVR Full report to follow Objective - Vital Signs/Intake and Output Vital Signs (last 24 hours): Temp Pulse Resp BP Pulse Ox 98.1 F 89 20 139/79 98 08/10/18 08:00 08/10/18 06:00 08/10/18 06:00 08/10/18 04:00 08/10/18 06:00 Intake and Output: 08/10/18 08/10/18 06:59 18:59 Intake Total 340 Output Total 700 Balance -360 - Medications Medications: Current Medications Amlodipine Besylate (Norvasc) 10 mg PO DAILY [facility] Last Admin: 08/09/18 09:01 Dose: 10 mg Aspirin (Aspirin Chewable) 81 mg PO DAILY [facility] Last Admin: 08/09/18 09:00 Dose: 81 mg Ergocalciferol (Drisdol 50,000 Intl Units Cap) 1 cap PO Q7D [facility] Last Admin: 08/09/18 14:07 Dose: 1 cap Ferrous Gluconate (Fergon) 324 mg PO TID [facility] Last Admin: 08/09/18 18:08 Dose: 324 mg Furosemide (Lasix) 20 mg PO DAILY [facility] Stop: 08/14/18 10:01 Last Admin: 08/09/18 09:00 Dose: 20 mg Meropenem 500 mg/ Sodium (Chloride) 100 mls @ 100 mls/hr IVPB Q8H [facility]; Protocol Last Admin: 08/10/18 01:21 Dose: 100 mls/hr Lorazepam (Ativan) 2 mg IVP Q2H PRN PRN Reason: Seizure activity Last Admin: 08/07/18 03:10 Dose: 2 mg Methylprednisolone (Solu-Medrol) 40 mg IVP Q12H [facility] Last Admin: 08/09/18 21:26 Dose: 40 mg Pantoprazole Sodium (Protonix Susp) 40 mg PO 0600 [facility] Last Admin: 08/10/18 05:26 Dose: 40 mg Vitamin A (Vitamin A & D Oint Ud Foilpak) 1 ea TOP BID PRN PRN Reason: Dry skin Last Admin: 08/09/18 21:28 Dose: 1 ea Vitamin B Complex/Vit C/Folic Acid (Nephro-Fortino) 1 tab PO 0800 [facility] Last Admin: 08/09/18 09:00 Dose: 1 tab - Labs Labs: 08/08/18 06:02 08/08/18 06:02 PT 12.6 SECONDS (9.7-12.2) H 08/03/18 14:50 INR 1.2 08/03/18 14:50 APTT 26 SECONDS (21-34) D 08/05/18 06:31
[2018-08-10] MEDS: MethylPREDNISolone 40 mg Vial IVP SCH ×2 (10:41→22:30)
[2018-08-10] MEDS: Multivitamin Vitamin B Complex (Nephro-Vite) Tab PO SCH ×2 (10:43→11:55)
[2018-08-10] MEDS: Vitamins A & D Oint UD Foilpak TOP PRN (10:45)
--- NOTE | 2018-08-10 11:09 | CARD ---
APPROVED REPORT Date of service: 08/10/2018 EXAM: Transesophageal echocardiogram with color flow Doppler. INDICATION Infection : Rule out subacute bacterial endocarditis Mitral Valve E/A ratio0.0 TDI E/Lateral E'0.0E/Medial E'0.0 Reason For Test : Rule out endocarditis. PROCEDURE After obtaining informed consent, patient underwent transesophageal echo in the [facility]. Type of Sedation : Conscious Sedation Sedation was provided by anesthesiologist. Sedation was administered by Dr. Hodge. Sedation was achieved with intravenously. The RIAN was performed complications. Throughout the procedure, the blood pressure, pulse oximetry, cardiac rhythm, and rate were monitored. The patient tolerated the procedure without adverse effects. Recovery from conscious sedation was uneventful and vital signs were stable. LEFT VENTRICLE The left ventricle is normal size. The left ventricular function is normal. The left ventricular ejection fraction is within the normal range. There is normal LV segmental wall motion. No left ventricle thrombus noted on this study. There is no ventricular septal defect visualized. There is no left ventricular aneurysm. RIGHT VENTRICLE The right ventricle is normal size. The right ventricular systolic function is normal. ATRIA The left atrium is mildly dilated. The right atrium size is normal. The interatrial septum is intact with no evidence for an atrial septal defect. AORTIC VALVE The aortic valve is normal in structure. No aortic regurgitation is present. There is no aortic valvular stenosis. There is no aortic valvular vegetation. MITRAL VALVE Prolapse with 1cm x 1cm vegetation noted on the Anterior Mitral leaflet A moderate AML mitral valve prolapse is present. There is no mitral valve stenosis. Mitral regurgitation is severe. TRICUSPID VALVE The tricuspid valve is normal in structure. There is mild tricuspid regurgitation. There is no tricuspid valve prolapse or vegetation. There is no tricuspid valve stenosis. PULMONIC VALVE The pulmonary valve is normal in structure. There is no pulmonic valvular regurgitation. GREAT VESSELS The aortic root is normal in size. <Conclusion> The left ventricular function is normal. The left ventricular ejection fraction is within the normal range. The right ventricular systolic function is normal. The left atrium is mildly dilated. The aortic valve is normal in structure. The tricuspid valve is normal in structure. The pulmonary valve is normal in structure. The aortic root is normal in size. Prolapse with 1cm x 1cm vegetation noted on the Anterior Mitral leaflet A moderate AML mitral valve prolapse is present. Mitral regurgitation is severe. Mitral valce endocarditis with severe MR
--- NOTE | 2018-08-10 12:39 | CP.PCM.PN ---
Subjective - Date & Time of Evaluation Date of Evaluation: 08/09/18 Time of Evaluation: 19:00 - Subjective Subjective: No complaints. Objective - Vital Signs/Intake and Output Vital Signs (last 24 hours): Temp Pulse Resp BP Pulse Ox 98.1 F 106 H 18 161/95 H 98 08/10/18 08:00 08/10/18 12:00 08/10/18 12:00 08/10/18 11:30 08/10/18 12:00 Intake and Output: 08/10/18 08/10/18 06:59 18:59 Intake Total 340 Output Total 700 Balance -360 - Medications Medications: Current Medications Amlodipine Besylate (Norvasc) 10 mg PO DAILY [facility] Last Admin: 08/10/18 10:43 Dose: 10 mg Aspirin (Aspirin Chewable) 81 mg PO DAILY [facility] Last Admin: 08/09/18 09:00 Dose: 81 mg Ergocalciferol (Drisdol 50,000 Intl Units Cap) 1 cap PO Q7D [facility] Last Admin: 08/09/18 14:07 Dose: 1 cap Ferrous Gluconate (Fergon) 324 mg PO TID [facility] Last Admin: 08/10/18 10:43 Dose: 324 mg Furosemide (Lasix) 20 mg PO DAILY [facility] Stop: 08/14/18 10:01 Last Admin: 08/10/18 10:43 Dose: 20 mg Meropenem 500 mg/ Sodium (Chloride) 100 mls @ 100 mls/hr IVPB Q8H [facility]; Protocol Last Admin: 08/10/18 10:40 Dose: 100 mls/hr Lorazepam (Ativan) 2 mg IVP Q2H PRN PRN Reason: Seizure activity Last Admin: 08/07/18 03:10 Dose: 2 mg Methylprednisolone (Solu-Medrol) 40 mg IVP Q12H [facility] Last Admin: 08/10/18 10:41 Dose: 40 mg Pantoprazole Sodium (Protonix Susp) 40 mg PO 0600 [facility] Last Admin: 08/10/18 05:26 Dose: 40 mg Vitamin A (Vitamin A & D Oint Ud Foilpak) 1 ea TOP BID PRN PRN Reason: Dry skin Last Admin: 08/10/18 10:45 Dose: 1 ea Vitamin B Complex/Vit C/Folic Acid (Nephro-Fortino) 1 tab PO 0800 [facility] Last Admin: 08/10/18 11:55 Dose: Not Given - Labs Labs: 08/08/18 06:02 08/08/18 06:02 PT 12.6 SECONDS (9.7-12.2) H 08/03/18 14:50 INR 1.2 08/03/18 14:50 APTT 26 SECONDS (21-34) D 08/05/18 06:31 - Head Exam Head Exam: ATRAUMATIC - Eye Exam Eye Exam: Normal appearance - ENT Exam ENT Exam: Mucous Membranes Dry - Respiratory Exam Respiratory Exam: NORMAL BREATHING PATTERN - Cardiovascular Exam Cardiovascular Exam: +S1, +S2 - GI/Abdominal Exam GI & Abdominal Exam: Normal Bowel Sounds Assessment and Plan (1) Thrombocytopenia Assessment & Plan: suspect sepsis related rule out HIT; heparin AB and serotonin release assay sent. Avoid heparin/lovenox until w/u resulted. rule out DIC; f/u fibrinogen Status: Acute (2) Anemia Assessment & Plan: likely chronic disease and renal disease cont. to monitor Status: Acute (3) Leukocytosis Assessment & Plan: on antibiotics Status: Acute
--- NOTE | 2018-08-10 13:31 | CP.PCM.PN ---
Subjective - Date & Time of Evaluation Date of Evaluation: 08/10/18 Time of Evaluation: 07:00 - Subjective Subjective: Mitral valve endocarditis with severe MR CT surgery evaluation for possible MVR Objective - Vital Signs/Intake and Output Vital Signs (last 24 hours): Temp Pulse Resp BP Pulse Ox 98.4 F 106 H 18 161/95 H 98 08/10/18 12:00 08/10/18 12:00 08/10/18 12:00 08/10/18 11:30 08/10/18 12:00 Intake and Output: 08/10/18 08/10/18 06:59 18:59 Intake Total 340 Output Total 700 Balance -360 - Medications Medications: Current Medications Amlodipine Besylate (Norvasc) 10 mg PO DAILY [facility] Last Admin: 08/10/18 10:43 Dose: 10 mg Aspirin (Aspirin Chewable) 81 mg PO DAILY [facility] Last Admin: 08/09/18 09:00 Dose: 81 mg Ergocalciferol (Drisdol 50,000 Intl Units Cap) 1 cap PO Q7D [facility] Last Admin: 08/09/18 14:07 Dose: 1 cap Ferrous Gluconate (Fergon) 324 mg PO TID [facility] Last Admin: 08/10/18 10:43 Dose: 324 mg Furosemide (Lasix) 20 mg PO DAILY [facility] Stop: 08/14/18 10:01 Last Admin: 08/10/18 10:43 Dose: 20 mg Meropenem 500 mg/ Sodium (Chloride) 100 mls @ 100 mls/hr IVPB Q8H [facility]; Protocol Last Admin: 08/10/18 10:40 Dose: 100 mls/hr Lorazepam (Ativan) 2 mg IVP Q2H PRN PRN Reason: Seizure activity Last Admin: 08/07/18 03:10 Dose: 2 mg Methylprednisolone (Solu-Medrol) 40 mg IVP Q12H [facility] Last Admin: 08/10/18 10:41 Dose: 40 mg Pantoprazole Sodium (Protonix Susp) 40 mg PO 0600 [facility] Last Admin: 08/10/18 05:26 Dose: 40 mg Vitamin A (Vitamin A & D Oint Ud Foilpak) 1 ea TOP BID PRN PRN Reason: Dry skin Last Admin: 08/10/18 10:45 Dose: 1 ea Vitamin B Complex/Vit C/Folic Acid (Nephro-Fortino) 1 tab PO 0800 [facility] Last Admin: 08/10/18 11:55 Dose: Not Given - Labs Labs: 08/08/18 06:02 08/08/18 06:02 PT 12.6 SECONDS (9.7-12.2) H 08/03/18 14:50 INR 1.2 08/03/18 14:50 APTT 26 SECONDS (21-34) D 08/05/18 06:31 - Constitutional Appears: Confused, Chronically Ill - Head Exam Head Exam: NORMOCEPHALIC - Eye Exam Eye Exam: absent: Scleral icterus - ENT Exam ENT Exam: Mucous Membranes Dry - Neck Exam Neck Exam: absent: Lymphadenopathy - Respiratory Exam Respiratory Exam: Decreased Breath Sounds - Cardiovascular Exam Cardiovascular Exam: REGULAR RHYTHM - GI/Abdominal Exam GI & Abdominal Exam: Distended, Soft Assessment and Plan (1) Acute kidney injury Status: Acute (2) Closed fracture of right proximal humerus Status: Acute (3) Metabolic acidosis Status: Acute (4) Respiratory failure Status: Acute (5) Rhabdomyolysis Status: Acute - Assessment and Plan (Free Text) Assessment: cont iv rx for MSSA endocarditis
--- NOTE | 2018-08-10 13:39 | PCM.PYCHPN ---
Psychiatric Progress Note - Psychiatric Progress Note Patient seen today, length of contact: 15 min Patient Chief Complaint: i am seeing things Problems Identified/Issues Discussed: Patient seen and evaluated, chart reviewed and discussed with the nurse. Pt remained disorganized and internally preoccupied. She remained isolated and withdrawn, and confined to her room. She still reports auditory hallucinations, visual hallucinations, and paranoia. Patient is compliant with medications and denies any side effects. Symptoms are improving but pt needs more time to stabilize. Support and psychoeducation given. Medication Change: Yes Medical Record Reviewed: Yes Mental Status Examination - Cognitive Function Orientation: Person, Place Memory: Impaired Attention: WNL Concentration: Poor Association: Loose Fund of Knowledge: WNL - Mood Mood: Anxious - Affect Affect: Constricted - Speech Speech: Soft - Formal Thought Process Formal Thought Process: Hallucinations, Delusions, Loosening of associations - Suicidal Ideation Suicidal Ideation: No - Homicidal Ideation Homicidal Ideation: No Goal/Treatment Plan - Goal/Treatment Plan Need for Continued Stay: Severe depression anxiety, Severe functional impairment Progress Toward Problem(s) and Goals/Treatment Plan: Delirium due to medical condition Pt remained delirious Start haldol start hydroxyzine
--- NOTE | 2018-08-10 14:55 | CP.PCM.CON ---
History of Present Illness - History of Present Illness History of Present Illness: Vascular Surgery consult note - Dr. Weaver 62 year old female with PMH of MVP, HTN, HLD, depression and chronic ETOH user was seen and examined at bedside for mitral valve infective endocarditis with severe MR s/p RIAN on 08/10/18. Patient was initially admitted to ED for AMS and ROBIN but during the hospital stay, she had an episode of rapid response and when followed up with cardio, patient was positive for endocarditis. Patient is comfortable with no associated pain. Patient denies any fever, dizziness, chest pain, SOB, N/V/C/D and abdominal pain. PMH: MVP, HTN, Depression, ETOH user PSH: none ALL: NKDA Review of Systems - Review of Systems All systems: reviewed and no additional remarkable complaints except (per HPI) - Constitutional Constitutional: As Per HPI - EENT Eyes: As Per HPI Ears: As Per HPI Nose/Mouth/Throat: As Per HPI - Cardiovascular Cardiovascular: Rapid Heart Rate. absent: Chest Pain, Diaphoresis, Pain Radiating to Arm/Neck/Jaw, Leg Edema - Respiratory Respiratory: As Per HPI - Gastrointestinal Gastrointestinal: As Per HPI - Genitourinary Genitourinary: As Per HPI - Neurological Neurological: As Per HPI Past Patient History - Past Medical History & Family History Past Medical History?: Yes - Past Social History Smoking Status: Never Smoked Alcohol: > 2 Drinks/Day Drugs: Denies - CARDIAC Hx Hypercholesterolemia: Yes Hx Hypertension: Yes - MUSCULOSKELETAL/RHEUMATOLOGICAL Hx Falls: No - PSYCHIATRIC Hx Depression: Yes Hx Substance Use: (unknown) - ANESTHESIA Hx Anesthesia: No Hx Anesthesia Reactions: No Hx Malignant Hyperthermia: No Has any member of the family had a problem w/ anesthesia?: No Meds Allergies/Adverse Reactions: Allergies Allergy/AdvReac Type Severity Reaction Status Date / Time No Known Allergies Allergy Verified 07/31/18 15:33 - Medications Medications: Current Medications Amlodipine Besylate (Norvasc) 10 mg PO DAILY [facility] Last Admin: 08/10/18 10:43 Dose: 10 mg Aspirin (Aspirin Chewable) 81 mg PO DAILY [facility] Last Admin: 08/10/18 14:22 Dose: 81 mg Diphenhydramine HCl (Benadryl) 25 mg PO Q6 PRN PRN Reason: Agitation Ergocalciferol (Drisdol 50,000 Intl Units Cap) 1 cap PO Q7D [facility] Last Admin: 08/09/18 14:07 Dose: 1 cap Ferrous Gluconate (Fergon) 324 mg PO TID [facility] Last Admin: 08/10/18 14:07 Dose: Not Given Furosemide (Lasix) 20 mg PO DAILY [facility] Stop: 08/14/18 10:01 Last Admin: 08/10/18 10:43 Dose: 20 mg Haloperidol (Haldol) 5 mg PO Q6 PRN PRN Reason: Agitation Last Admin: 08/10/18 14:22 Dose: 5 mg Meropenem 500 mg/ Sodium (Chloride) 100 mls @ 100 mls/hr IVPB Q8H [facility]; Protocol Last Admin: 08/10/18 10:40 Dose: 100 mls/hr Methylprednisolone (Solu-Medrol) 40 mg IVP Q12H [facility] Last Admin: 08/10/18 10:41 Dose: 40 mg Pantoprazole Sodium (Protonix Susp) 40 mg PO 0600 [facility] Last Admin: 08/10/18 05:26 Dose: 40 mg Vitamin A (Vitamin A & D Oint Ud Foilpak) 1 ea TOP BID PRN PRN Reason: Dry skin Last Admin: 08/10/18 10:45 Dose: 1 ea Vitamin B Complex/Vit C/Folic Acid (Nephro-Fortino) 1 tab PO 0800 [facility] Last Admin: 08/10/18 11:55 Dose: Not Given Physical Exam - Constitutional Appears: No Acute Distress - Head Exam Head Exam: ATRAUMATIC, NORMAL INSPECTION, NORMOCEPHALIC - ENT Exam ENT Exam: Mucous Membranes Moist, Normal Exam - Neck Exam Neck exam: Positive for: Normal Inspection - Respiratory Exam Respiratory Exam: NORMAL BREATHING PATTERN. absent: Accessory Muscle Use - Cardiovascular Exam Cardiovascular Exam: Tachycardia, +S1, +S2, Systolic Murmur. absent: JVD Additional comments: Systolic murmur that radiates to the axilia - GI/Abdominal Exam GI & Abdominal Exam: Normal Bowel Sounds, Soft - Extremities Exam Extremities exam: Positive for: normal inspection - Skin Skin Exam: Intact, Warm Results - Vital Signs Recent Vital Signs: Last Vital Signs Temp 98.4 F 08/10/18 12:00 Pulse 117 H 08/10/18 14:00 Resp 25 H 08/10/18 14:00 BP 144/64 08/10/18 13:29 Pulse Ox 97 08/10/18 14:00 - Labs Result Diagrams: 08/08/18 06:02 08/08/18 06:02 Labs: Laboratory Results - last 24 hr 08/09/18 22:58 Stool Occult Blood Positive H Assessment & Plan - Assessment and Plan (Free Text) Assessment: 62 year old female with mitral valve infective endocarditis with severe MR Plan: 1) Infective Endocarditis with severe MR -
--- NOTE | 2018-08-10 15:58 | CP.PCM.PN ---
Subjective - Date & Time of Evaluation Date of Evaluation: 08/10/18 Time of Evaluation: 15:51 - Subjective Subjective: Nephrology Consultation Note Assessment: stable Acute Kidney Injury (N17.9) likely due to ATN: improved (work up for GN neg) Hypertensive Chronic Kidney Disease (I12.9) Hypokalemia Chronic Kidney Disease (N18.9) Stage ? with ? mg proteinuria (R80.9) likely due to HTN Anemia (D64.9), Hyperphosphatemia (E83.39) left lung collapse, UTI severe Mitral regurg with infective endocarditis, depression/Anxiety Plan she had 1st session 07/31/18 and last HD on 08/04/18. pt refused for further dialysis. Now renal function stable with stable cr. UOP likely not accurate. continue to monitor her without dialysis Maintain hemodynamics stable. Avoid hypotension. Patient not on ACEI/ARB due to recent ROBIN Monitor Input/Output, daily weights and renal function with basic metabolic panel started Fe, MVI, epogen and weekly Vit D PRBC as needed heme, cardiology following pt for transfer to [facility], planned for cardiac cath. pt will be at increased risk of contrast induced nephropathy. hold lasix. check cxr, will give ivf if cxr clear. Check urine analysis, spot protein/creatinine, albumin/creatinine ratio. Pending renal sonogram. CPK Check GN work up as C3, C4, LINDSEY, Anti dsDNA, ASO titers, ANCA (MPO and MI-3), An ti GBM antibody, HIV Anemia work up with TSAT/Ferritin/Vitamin B12/folate, serum protein electrophor esis with immunofixation, serum free light chain assay ([place]/Lambda) Check for 25-OH vitamin D, iPTH, phosphorus level. Dose meds/antibiotics for reduced GFR. Avoid fleets enema/magnesium based lax atives. Avoid nephrotoxins/NSAIDs/ iodinated contrast (unless needed emergently) Glycemic control Further work up for as per primary team Thanks for allowing me to participate in care of your patient. Will follow patient with you. Please call if any Qs. had d/w team Dr Heriberto Hernandez Office: [phone] Subjective: Noted events overnight. Patients says feels okay. denies CP/SOB. had refused HD or catheter insertion earlier. renal function stable RIAN: IE with severe MR for transfer to [facility] Physical Examination: General Appearance: Comfortable, in no acute respiratory distress Vitals reviewed and noted as below Head; Atraumatic, normocephalic ENT: WNL EYES: Pupils are equal, round and reactive to light accommodation. Eye muscles and extraocular movement intact. Sclera is anicteric. Neck; supple no lymphadenopathy, no thyromegaly or bruit Lungs: Normal respiratory rate/effort. Breath sounds b/l improved. has left side crackles Heart: increased rate. s1s2 normal. No rub or gallop. SM + at apex/LSB Extremities: 1+ edema. No varicose veins Neurological: Patient is alert awake oriented x 2 follow commands Skin: Warm and dry. Normal turgor. No rash. Palpitation: Normal elasticity for age Abdomen: Abdomen is soft. Bowel sounds +. There is no abdominal tenderness, no guarding/rigidity no organomegaly Psych: limited insight. MSK: no joint tenderness or swelling. Digits and nails normal, no deformity : kidney or bladder not palpable access: none Labs/imaging reviewed. Past medical history, past surgical history, family history, social history, allergy reviewed and noted as below Family hx: no hx of CKD. Rest non-contributory work up: CXR: left lung collapse Hep B/C neg UA 2+ protein 1+ blood Objective - Vital Signs/Intake and Output Vital Signs (last 24 hours): Temp Pulse Resp BP Pulse Ox 98.4 F 117 H 25 H 144/64 97 08/10/18 12:00 08/10/18 14:00 08/10/18 14:00 08/10/18 13:29 08/10/18 14:00 Intake and Output: 08/10/18 08/10/18 06:59 18:59 Intake Total 340 Output Total 700 Balance -360 - Medications Medications: Current Medications Amlodipine Besylate (Norvasc) 10 mg PO DAILY [facility] Last Admin: 08/10/18 10:43 Dose: 10 mg Aspirin (Aspirin Chewable) 81 mg PO DAILY [facility] Last Admin: 08/10/18 14:22 Dose: 81 mg Diphenhydramine HCl (Benadryl) 25 mg PO Q6 PRN PRN Reason: Agitation Ergocalciferol (Drisdol 50,000 Intl Units Cap) 1 cap PO Q7D [facility] Last Admin: 08/09/18 14:07 Dose: 1 cap Ferrous Gluconate (Fergon) 324 mg PO TID [facility] Last Admin: 08/10/18 14:07 Dose: Not Given Furosemide (Lasix) 20 mg PO DAILY [facility] Stop: 08/14/18 10:01 Last Admin: 08/10/18 10:43 Dose: 20 mg Haloperidol (Haldol) 5 mg PO Q6 PRN PRN Reason: Agitation Last Admin: 08/10/18 14:22 Dose: 5 mg Meropenem 500 mg/ Sodium (Chloride) 100 mls @ 100 mls/hr IVPB Q8H [facility]; Protocol Last Admin: 08/10/18 10:40 Dose: 100 mls/hr Methylprednisolone (Solu-Medrol) 40 mg IVP Q12H [facility] Last Admin: 08/10/18 10:41 Dose: 40 mg Pantoprazole Sodium (Protonix Susp) 40 mg PO 0600 [facility] Last Admin: 08/10/18 05:26 Dose: 40 mg Vitamin A (Vitamin A & D Oint Ud Foilpak) 1 ea TOP BID PRN PRN Reason: Dry skin Last Admin: 08/10/18 10:45 Dose: 1 ea Vitamin B Complex/Vit C/Folic Acid (Nephro-Fortino) 1 tab PO 0800 [facility] Last Admin: 08/10/18 11:55 Dose: Not Given - Labs Labs: 08/08/18 06:02 08/08/18 06:02 PT 12.6 SECONDS (9.7-12.2) H 08/03/18 14:50 INR 1.2 08/03/18 14:50 APTT 26 SECONDS (21-34) D 08/05/18 06:31
[2018-08-10 16:38] LABS: BASO % 0.2 % (0.0-2.0); HEMOGLOBIN 7.8 g/dL (11.0-16.0); LYMPH # 0.3 K/uL (1.0-4.3); LYMPH % 3.1 % (20.0-40.0); MEAN CORPUSCULAR HEMOGLOBIN 31.9 pg (27.0-31.0); MEAN CORPUSCULAR HGB CONC 32.8 g/dL (33.0-37.0); MEAN PLATELET VOLUME 10.7 fL (7.2-11.7); MONO # 0.2 K/uL (0.0-0.8); MONO % 2.6 % (0.0-10.0); NEUT # 8.2 K/uL (1.8-7.0); NEUT % 94.1 % (50.0-75.0); NRBC % 0.3 % (0.0-2.0); RBC 2.46 Mil/uL (3.80-5.20); RED CELL DISTRIBUTION WIDTH 15.6 % (11.5-14.5); WHITE BLOOD COUNT 8.7 K/uL (4.8-10.8)
[2018-08-10 16:50] LABS: MEAN CELL VOLUME 97.3 fL (81.0-99.0); PLATELET COUNT 129 K/uL (130-400)
[2018-08-10 17:21] LABS: BLOOD UREA NITROGEN 45 mg/dL (7-17); CALCIUM 6.8 mg/dl (8.6-10.4); GFR NON-AFRICAN AMERICAN 56
[2018-08-10 17:41] LABS: BANDS 2 % (0-2); LYMPHOCYTE 3 % (20-40); MONOCYTE 4 % (0-10); NEUTROPHIL 91 % (50-75); TOTAL CELLS COUNTED 100
[2018-08-10] MEDS: Piperacill/Tazo 2.25gm in Dex 2.25 GM/50 ML BAG IVPB SCH ×2 (17:41→23:52)
[2018-08-10 17:42] LABS: MICROCYTOSIS SLIGHT; OVALOCYTES SLIGHT; PLATELET ESTIMATE SLIGHTLY DECREASED (NORMAL); SCHISTOCYTES SLIGHT
[2018-08-10 17:43] LABS: HYPERSEGMENTATION PRESENT
[2018-08-10] MEDS: Potassium Chloride 20 mEq/15 ml LIQ UD PO SCH ×2 (17:52→23:51)
[2018-08-10 19:08] LABS: SQUAMOUS EPITHIAL < 1 /hpf (0-5); URINE BACTERIA RARE (<OCC); URINE BILIRUBIN NEGATIVE (NEGATIVE); URINE BLOOD 1+ (NEGATIVE); URINE CLARITY Hazy (Clear); URINE COLOR Yellow (YELLOW); URINE GLUCOSE (UA) NORMAL (Normal); URINE LEUKOCYTE ESTERASE NEG Leu/uL (Negative); URINE PROTEIN NEGATIVE (NEGATIVE); URINE UROBILINOGEN NORMAL mg/dL (0.2-1.0)
[2018-08-10 22:47] VITALS: RESP 20
[2018-08-11] MEDS: Potassium Chloride 20 mEq/15 ml LIQ UD PO SCH (00:05)
[2018-08-11] MEDS: Piperacill/Tazo 2.25gm in Dex 2.25 GM/50 ML BAG IVPB SCH ×4 (05:10→23:12)
[2018-08-11] MEDS: Pantoprazole 40 mg Susp UD PO SCH (05:17)
--- NOTE | 2018-08-11 07:54 | RAD ---
Date of service: 08/10/2018 HISTORY: CHF COMPARISON: Portable chest 08/04/2018. FINDINGS: LUNGS: Endotracheal and nasogastric tubes appear to been removed. Trace atelectasis or focal pleural thickening is seen the mid right lung zone laterally with remainder of the right lung clear. Limited linear atelectasis seen the inferior left lung zone with no definite infiltrate identified. PLEURA: Trace left pleural effusion question blunting left costophrenic sulcus. No right pleural effusion but no pneumothorax bilaterally. CARDIOVASCULAR: Stable cardiomediastinal silhouette. Borderline pulmonary vascular congestion. No calcific aortic atherosclerosis. OSSEOUS STRUCTURES: Incidental ununited right humeral fracture reiterated as well as probable right 4th posterior rib fracture. VISUALIZED UPPER ABDOMEN: Normal. OTHER FINDINGS: None. IMPRESSION: Trace of pleural effusion question. Limited linear atelectasis inferior left lung zone and focal pleural thickening of atelectasis mid right lung zone laterally. Borderline pulmonary vascular congestion.
[2018-08-11] MEDS: Multivitamin Vitamin B Complex (Nephro-Vite) Tab PO SCH (10:23)
[2018-08-11] MEDS: MethylPREDNISolone 40 mg Vial IVP SCH ×2 (10:24→21:06)
[2018-08-11] MEDS ORDERED: Sodium Chloride 0.9% 1,000 ML IV SCH (10:30)
[2018-08-11 11:52] LABS: ALBUMIN 2.9 g/dL (3.5-5.0); CALCIUM 8.2 mg/dl (8.6-10.4)
--- NOTE | 2018-08-11 12:59 | CP.PCM.PN ---
Subjective - Date & Time of Evaluation Date of Evaluation: 08/18/18 Time of Evaluation: 12:57 - Subjective Subjective: Surgery Pt seen and examined. Pt wants to think about possible transfer for cardiothoracic surgery. Pt had refused surgical intervention for permacath. Denies SOB, CP Objective - Vital Signs/Intake and Output Vital Signs (last 24 hours): Temp Pulse Resp BP Pulse Ox 98.3 F 94 H 20 112/69 97 08/11/18 09:13 08/11/18 11:55 08/11/18 09:13 08/11/18 09:13 08/11/18 09:13 Intake and Output: 08/11/18 08/11/18 06:59 18:59 Intake Total 0 Output Total 0 Balance 0 - Medications Medications: Current Medications Amlodipine Besylate (Norvasc) 10 mg PO DAILY [facility] Last Admin: 08/11/18 10:23 Dose: 10 mg Aspirin (Aspirin Chewable) 81 mg PO DAILY [facility] Last Admin: 08/11/18 10:23 Dose: 81 mg Diphenhydramine HCl (Benadryl) 25 mg PO Q6 PRN PRN Reason: Agitation Ergocalciferol (Drisdol 50,000 Intl Units Cap) 1 cap PO Q7D [facility] Last Admin: 08/09/18 14:07 Dose: 1 cap Ferrous Gluconate (Fergon) 324 mg PO TID [facility] Last Admin: 08/11/18 10:23 Dose: 324 mg Haloperidol (Haldol) 5 mg PO Q6 PRN PRN Reason: Agitation Last Admin: 08/10/18 14:22 Dose: 5 mg Piperacillin Sod/Tazobactam Sod (Zosyn 2.25 Gm Iv Premix) 2.25 gm in 50 mls @ 100 mls/hr IVPB Q6H [facility]; Protocol Last Admin: 08/11/18 11:35 Dose: 100 mls/hr Methylprednisolone (Solu-Medrol) 40 mg IVP Q12H [facility] Last Admin: 08/11/18 10:24 Dose: 40 mg Pantoprazole Sodium (Protonix Susp) 40 mg PO 0600 [facility] Last Admin: 08/11/18 05:17 Dose: 40 mg Vitamin A (Vitamin A & D Oint Ud Foilpak) 1 ea TOP BID PRN PRN Reason: Dry skin Last Admin: 08/10/18 10:45 Dose: 1 ea Vitamin B Complex/Vit C/Folic Acid (Nephro-Fortino) 1 tab PO 0800 [facility] Last Admin: 08/11/18 10:23 Dose: 1 tab - Labs Labs: 08/10/18 16:31 08/11/18 11:13 PT 12.6 SECONDS (9.7-12.2) H 08/03/18 14:50 INR 1.2 08/03/18 14:50 APTT 26 SECONDS (21-34) D 08/05/18 06:31 - Head Exam Head Exam: ATRAUMATIC, NORMAL INSPECTION, NORMOCEPHALIC - Eye Exam Eye Exam: EOMI, Normal appearance, PERRL Pupil Exam: NORMAL ACCOMODATION, PERRL - ENT Exam ENT Exam: Mucous Membranes Moist, Normal Exam - Neck Exam Neck Exam: Normal Inspection - Respiratory Exam Respiratory Exam: NORMAL BREATHING PATTERN - Cardiovascular Exam Cardiovascular Exam: Murmur - GI/Abdominal Exam GI & Abdominal Exam: Soft. absent: Distended, Tenderness - Extremities Exam Extremities Exam: Full ROM - Back Exam Back Exam: NORMAL INSPECTION - Neurological Exam Neurological Exam: Alert, Awake, CN II-XII Intact, Normal Gait, Oriented x3 - Psychiatric Exam Psychiatric exam: Normal Affect, Normal Mood - Skin Skin Exam: Dry, Intact, Normal Color, Warm Assessment and Plan - Assessment and Plan (Free Text) Assessment: 62 year old female with mitral valve infective endocarditis with severe MR with recent ho NSTEMI pt is poor surgical candidate. Pt had refused permacath during this admission Plan: 1) Infective Endocarditis with severe MR -Need cardiac clearance for possible surgery if pt agrees -Repeat Blood cx -ABX Will DW Dr. Weaver
--- NOTE | 2018-08-11 13:05 | CP.PCM.PN ---
Subjective - Date & Time of Evaluation Date of Evaluation: 08/11/18 Time of Evaluation: 13:02 - Subjective Subjective: Nephrology Consultation Note Assessment: stable Acute Kidney Injury (N17.9) likely due to ATN: improved (work up for GN neg): IMPROVING Hypertensive Chronic Kidney Disease (I12.9) Hypokalemia, hypomagnesemia Chronic Kidney Disease (N18.9) Stage ? with ? mg proteinuria (R80.9) likely due to HTN Anemia (D64.9), Hyperphosphatemia (E83.39) left lung collapse, UTI severe Mitral regurg with infective endocarditis, depression/Anxiety Plan she had 1st session 07/31/18 and last HD on 08/04/18. then pt refused for further dialysis. Now renal function stable with stable/improving cr. continue to monitor her without dialysis Maintain hemodynamics stable. Avoid hypotension. Patient not on ACEI/ARB due to recent ROBIN Monitor Input/Output, daily weights and renal function with basic metabolic panel started Fe, MVI, and weekly Vit D PRBC as needed heme, cardiology following pt for transfer to [facility], planned for cardiac cath, if pt agreeable. pt will be at increased risk of contrast induced nephropathy. hold lasix. will give ivf as NS 1 L. supplement KCL and Mag today Dose meds/antibiotics for reduced GFR. Avoid fleets enema/magnesium based laxatives. Avoid nephrotoxins/NSAIDs/ iodinated contrast (unless needed emergently) Glycemic control Further work up for as per primary team Thanks for allowing me to participate in care of your patient. Will follow patient with you. Please call if any Qs. had d/w team Dr Heriberto Hernandez Office: [phone] Subjective: Noted events overnight. Patients says feels same. denies CP/SOB. had refused HD or catheter insertion earlier. renal function stable/improved RIAN: IE with severe MR for transfer to [facility] [place] if pt agreeable. Physical Examination: General Appearance: Comfortable, in no acute respiratory distress Vitals reviewed and noted as below Head; Atraumatic, normocephalic ENT: WNL EYES: Pupils are equal, round and reactive to light accommodation. Eye muscles and extraocular movement intact. Sclera is anicteric. Neck; supple no lymphadenopathy, no thyromegaly or bruit Lungs: Normal respiratory rate/effort. Breath sounds b/l improved Heart: increased rate. s1s2 normal. No rub or gallop. SM + at apex/LSB Extremities: no edema. No varicose veins Neurological: Patient is alert awake oriented x 2 follow commands Skin: Warm and dry. Normal turgor. No rash. Palpitation: Normal elasticity for age Abdomen: Abdomen is soft. Bowel sounds +. There is no abdominal tenderness, no guarding/rigidity no organomegaly Psych: limited insight. MSK: no joint tenderness or swelling. Digits and nails normal, no deformity : kidney or bladder not palpable access: none Labs/imaging reviewed. Past medical history, past surgical history, family history, social history, allergy reviewed and noted as below Family hx: no hx of CKD. Rest non-contributory work up: CXR: left lung collapse Hep B/C neg UA 2+ protein 1+ blood Objective - Vital Signs/Intake and Output Vital Signs (last 24 hours): Temp Pulse Resp BP Pulse Ox 98.3 F 94 H 20 112/69 97 08/11/18 09:13 08/11/18 11:55 08/11/18 09:13 08/11/18 09:13 08/11/18 09:13 Intake and Output: 08/11/18 08/11/18 06:59 18:59 Intake Total 0 Output Total 0 Balance 0 - Medications Medications: Current Medications Amlodipine Besylate (Norvasc) 10 mg PO DAILY [facility] Last Admin: 08/11/18 10:23 Dose: 10 mg Aspirin (Aspirin Chewable) 81 mg PO DAILY [facility] Last Admin: 08/11/18 10:23 Dose: 81 mg Diphenhydramine HCl (Benadryl) 25 mg PO Q6 PRN PRN Reason: Agitation Ergocalciferol (Drisdol 50,000 Intl Units Cap) 1 cap PO Q7D [facility] Last Admin: 08/09/18 14:07 Dose: 1 cap Ferrous Gluconate (Fergon) 324 mg PO TID [facility] Last Admin: 08/11/18 10:23 Dose: 324 mg Haloperidol (Haldol) 5 mg PO Q6 PRN PRN Reason: Agitation Last Admin: 08/10/18 14:22 Dose: 5 mg Piperacillin Sod/Tazobactam Sod (Zosyn 2.25 Gm Iv Premix) 2.25 gm in 50 mls @ 100 mls/hr IVPB Q6H [facility]; Protocol Last Admin: 08/11/18 11:35 Dose: 100 mls/hr Magnesium Sulfate/Dextrose (Magnesium Sulfate 1 Gm/100 Ml D5w) 1 gm in 100 mls @ 300 mls/hr IVPB Q30M [facility] Stop: 08/11/18 14:04 Methylprednisolone (Solu-Medrol) 40 mg IVP Q12H [facility] Last Admin: 08/11/18 10:24 Dose: 40 mg Pantoprazole Sodium (Protonix Susp) 40 mg PO 0600 [facility] Last Admin: 08/11/18 05:17 Dose: 40 mg Potassium Chloride (K-Dur 20 Meq Er Tab) 40 meq PO DAILY [facility] Stop: 08/11/18 13:16 Vitamin A (Vitamin A & D Oint Ud Foilpak) 1 ea TOP BID PRN PRN Reason: Dry skin Last Admin: 08/10/18 10:45 Dose: 1 ea Vitamin B Complex/Vit C/Folic Acid (Nephro-Fortino) 1 tab PO 0800 [facility] Last Admin: 08/11/18 10:23 Dose: 1 tab - Labs Labs: 08/10/18 16:31 08/11/18 11:13 PT 12.6 SECONDS (9.7-12.2) H 08/03/18 14:50 INR 1.2 08/03/18 14:50 APTT 26 SECONDS (21-34) D 08/05/18 06:31
[2018-08-11] MEDS: Magnesium Sulfate 1 gm in D5W 1 GM/100 ML BAG IVPB SCH ×2 (14:00→14:44)
[2018-08-11] MEDS: Potassium Chloride 20 mEq ER Tab PO SCH ×2 (14:00→15:53)
[2018-08-11 14:05] LABS: BASO % 0.1 % (0.0-2.0); HEMOGLOBIN 9.2 g/dL (11.0-16.0); LYMPH # 0.3 K/uL (1.0-4.3); LYMPH % 2.6 % (20.0-40.0); MEAN CELL VOLUME 96.4 fL (81.0-99.0); MEAN CORPUSCULAR HEMOGLOBIN 31.3 pg (27.0-31.0); MEAN CORPUSCULAR HGB CONC 32.5 g/dL (33.0-37.0); MEAN PLATELET VOLUME 10.8 fL (7.2-11.7); MONO # 0.4 K/uL (0.0-0.8); MONO % 3.4 % (0.0-10.0); NEUT # 10.9 K/uL (1.8-7.0); NEUT % 93.9 % (50.0-75.0); NRBC % 0.1 % (0.0-2.0); PLATELET COUNT 164 K/uL (130-400); RBC 2.94 Mil/uL (3.80-5.20); RED CELL DISTRIBUTION WIDTH 16.7 % (11.5-14.5); WHITE BLOOD COUNT 11.6 K/uL (4.8-10.8)
[2018-08-11 14:35] LABS: LYMPHOCYTE 1 % (20-40); MONOCYTE 3 % (0-10); NEUTROPHIL 96 % (50-75); TOTAL CELLS COUNTED 100
[2018-08-11 14:37] LABS: ANISOCYTOSIS SLIGHT; HYPOCHROMIC SLIGHT; PLATELET ESTIMATE NORMAL (NORMAL); POLYCHROMIC SLIGHT
--- NOTE | 2018-08-11 18:06 | CP.PCM.PN ---
Subjective - Date & Time of Evaluation Date of Evaluation: 08/11/18 Time of Evaluation: 07:00 - Subjective Subjective: afeb on zosyn\await CT surg eval Objective - Vital Signs/Intake and Output Vital Signs (last 24 hours): Temp Pulse Resp BP Pulse Ox 97.4 F L 84 20 128/78 97 08/11/18 15:00 08/11/18 16:00 08/11/18 15:00 08/11/18 15:00 08/11/18 15:00 Intake and Output: 08/11/18 08/11/18 06:59 18:59 Intake Total 0 500 Output Total 0 300 Balance 0 200 - Medications Medications: Current Medications Amlodipine Besylate (Norvasc) 10 mg PO DAILY [facility] Last Admin: 08/11/18 10:23 Dose: 10 mg Aspirin (Aspirin Chewable) 81 mg PO DAILY [facility] Last Admin: 08/11/18 10:23 Dose: 81 mg Diphenhydramine HCl (Benadryl) 25 mg PO Q6 PRN PRN Reason: Agitation Ergocalciferol (Drisdol 50,000 Intl Units Cap) 1 cap PO Q7D [facility] Last Admin: 08/09/18 14:07 Dose: 1 cap Ferrous Gluconate (Fergon) 324 mg PO TID [facility] Last Admin: 08/11/18 15:53 Dose: Not Given Haloperidol (Haldol) 5 mg PO Q6 PRN PRN Reason: Agitation Last Admin: 08/10/18 14:22 Dose: 5 mg Piperacillin Sod/Tazobactam Sod (Zosyn 2.25 Gm Iv Premix) 2.25 gm in 50 mls @ 100 mls/hr IVPB Q6H [facility]; Protocol Last Admin: 08/11/18 11:35 Dose: 100 mls/hr Methylprednisolone (Solu-Medrol) 40 mg IVP Q12H [facility] Last Admin: 08/11/18 10:24 Dose: 40 mg Pantoprazole Sodium (Protonix Susp) 40 mg PO 0600 [facility] Last Admin: 08/11/18 05:17 Dose: 40 mg Vitamin A (Vitamin A & D Oint Ud Foilpak) 1 ea TOP BID PRN PRN Reason: Dry skin Last Admin: 08/10/18 10:45 Dose: 1 ea Vitamin B Complex/Vit C/Folic Acid (Nephro-Fortino) 1 tab PO 0800 [facility] Last Admin: 08/11/18 10:23 Dose: 1 tab - Labs Labs: 08/11/18 13:51 08/11/18 11:13 PT 12.6 SECONDS (9.7-12.2) H 08/03/18 14:50 INR 1.2 08/03/18 14:50 APTT 26 SECONDS (21-34) D 08/05/18 06:31 - Constitutional Appears: Non-toxic, Chronically Ill - Head Exam Head Exam: NORMOCEPHALIC - Eye Exam Eye Exam: PERRL - ENT Exam ENT Exam: Mucous Membranes Dry - Neck Exam Neck Exam: absent: Lymphadenopathy - Respiratory Exam Respiratory Exam: Decreased Breath Sounds - Cardiovascular Exam Cardiovascular Exam: REGULAR RHYTHM - GI/Abdominal Exam GI & Abdominal Exam: Distended, Soft Assessment and Plan (1) Acute kidney injury Status: Acute (2) Closed fracture of right proximal humerus Status: Acute (3) Metabolic acidosis Status: Acute (4) Respiratory failure Status: Acute (5) Rhabdomyolysis Status: Acute - Assessment and Plan (Free Text) Assessment: afeb on zosyn\await CT surg eval cont rx endocarditis
[2018-08-11] MEDS ORDERED: Potassium Chloride 20 mEq ER Tab PO ONE (20:21)
--- NOTE | 2018-08-11 20:32 | CP.PCM.PN ---
Subjective - Date & Time of Evaluation Date of Evaluation: 08/10/18 Time of Evaluation: 12:00 - Subjective Subjective: No complaints. Objective - Vital Signs/Intake and Output Vital Signs (last 24 hours): Temp Pulse Resp BP Pulse Ox 97.4 F L 84 20 128/78 97 08/11/18 15:00 08/11/18 16:00 08/11/18 15:00 08/11/18 15:00 08/11/18 15:00 Intake and Output: 08/11/18 08/12/18 18:59 06:59 Intake Total 500 Output Total 300 Balance 200 - Medications Medications: Current Medications Amlodipine Besylate (Norvasc) 10 mg PO DAILY [facility] Last Admin: 08/11/18 10:23 Dose: 10 mg Aspirin (Aspirin Chewable) 81 mg PO DAILY [facility] Last Admin: 08/11/18 10:23 Dose: 81 mg Diphenhydramine HCl (Benadryl) 25 mg PO Q6 PRN PRN Reason: Agitation Ergocalciferol (Drisdol 50,000 Intl Units Cap) 1 cap PO Q7D [facility] Last Admin: 08/09/18 14:07 Dose: 1 cap Ferrous Gluconate (Fergon) 324 mg PO TID [facility] Last Admin: 08/11/18 18:03 Dose: Not Given Haloperidol (Haldol) 5 mg PO Q6 PRN PRN Reason: Agitation Last Admin: 08/10/18 14:22 Dose: 5 mg Piperacillin Sod/Tazobactam Sod (Zosyn 2.25 Gm Iv Premix) 2.25 gm in 50 mls @ 100 mls/hr IVPB Q6H [facility]; Protocol Last Admin: 08/11/18 17:50 Dose: 100 mls/hr Methylprednisolone (Solu-Medrol) 40 mg IVP Q12H [facility] Last Admin: 08/11/18 10:24 Dose: 40 mg Pantoprazole Sodium (Protonix Susp) 40 mg PO 0600 [facility] Last Admin: 08/11/18 05:17 Dose: 40 mg Potassium Chloride (K-Dur 20 Meq Er Tab) 40 meq PO ONCE ONE Stop: 08/12/18 20:22 Vitamin A (Vitamin A & D Oint Ud Foilpak) 1 ea TOP BID PRN PRN Reason: Dry skin Last Admin: 08/10/18 10:45 Dose: 1 ea Vitamin B Complex/Vit C/Folic Acid (Nephro-Fortino) 1 tab PO 0800 [facility] Last Admin: 08/11/18 10:23 Dose: 1 tab - Labs Labs: 08/11/18 13:51 08/11/18 11:13 PT 12.6 SECONDS (9.7-12.2) H 08/03/18 14:50 INR 1.2 08/03/18 14:50 APTT 26 SECONDS (21-34) D 08/05/18 06:31 - Head Exam Head Exam: ATRAUMATIC - Eye Exam Eye Exam: Normal appearance - ENT Exam ENT Exam: Mucous Membranes Dry - Respiratory Exam Respiratory Exam: NORMAL BREATHING PATTERN - Cardiovascular Exam Cardiovascular Exam: +S1, +S2 - GI/Abdominal Exam GI & Abdominal Exam: Normal Bowel Sounds Assessment and Plan (1) Thrombocytopenia Assessment & Plan: suspect sepsis related rule out HIT; heparin AB and serotonin release assay sent. Avoid heparin/lovenox until w/u resulted. improving Status: Acute (2) Anemia Assessment & Plan: likely chronic disease and renal disease cont. to monitor Status: Acute
--- NOTE | 2018-08-11 20:33 | CP.PCM.PN ---
Subjective - Date & Time of Evaluation Date of Evaluation: 08/11/18 Time of Evaluation: 14:00 - Subjective Subjective: Feeling better. Objective - Vital Signs/Intake and Output Vital Signs (last 24 hours): Temp Pulse Resp BP Pulse Ox 97.4 F L 84 20 128/78 97 08/11/18 15:00 08/11/18 16:00 08/11/18 15:00 08/11/18 15:00 08/11/18 15:00 Intake and Output: 08/11/18 08/12/18 18:59 06:59 Intake Total 500 Output Total 300 Balance 200 - Medications Medications: Current Medications Amlodipine Besylate (Norvasc) 10 mg PO DAILY [facility] Last Admin: 08/11/18 10:23 Dose: 10 mg Aspirin (Aspirin Chewable) 81 mg PO DAILY [facility] Last Admin: 08/11/18 10:23 Dose: 81 mg Diphenhydramine HCl (Benadryl) 25 mg PO Q6 PRN PRN Reason: Agitation Ergocalciferol (Drisdol 50,000 Intl Units Cap) 1 cap PO Q7D [facility] Last Admin: 08/09/18 14:07 Dose: 1 cap Ferrous Gluconate (Fergon) 324 mg PO TID [facility] Last Admin: 08/11/18 18:03 Dose: Not Given Haloperidol (Haldol) 5 mg PO Q6 PRN PRN Reason: Agitation Last Admin: 08/10/18 14:22 Dose: 5 mg Piperacillin Sod/Tazobactam Sod (Zosyn 2.25 Gm Iv Premix) 2.25 gm in 50 mls @ 100 mls/hr IVPB Q6H [facility]; Protocol Last Admin: 08/11/18 17:50 Dose: 100 mls/hr Methylprednisolone (Solu-Medrol) 40 mg IVP Q12H [facility] Last Admin: 08/11/18 10:24 Dose: 40 mg Pantoprazole Sodium (Protonix Susp) 40 mg PO 0600 [facility] Last Admin: 08/11/18 05:17 Dose: 40 mg Potassium Chloride (K-Dur 20 Meq Er Tab) 40 meq PO ONCE ONE Stop: 08/12/18 20:22 Vitamin A (Vitamin A & D Oint Ud Foilpak) 1 ea TOP BID PRN PRN Reason: Dry skin Last Admin: 08/10/18 10:45 Dose: 1 ea Vitamin B Complex/Vit C/Folic Acid (Nephro-Fortino) 1 tab PO 0800 [facility] Last Admin: 08/11/18 10:23 Dose: 1 tab - Labs Labs: 08/11/18 13:51 08/11/18 11:13 PT 12.6 SECONDS (9.7-12.2) H 08/03/18 14:50 INR 1.2 08/03/18 14:50 APTT 26 SECONDS (21-34) D 08/05/18 06:31 - Head Exam Head Exam: ATRAUMATIC - Eye Exam Eye Exam: Normal appearance - ENT Exam ENT Exam: Mucous Membranes Dry - Respiratory Exam Respiratory Exam: NORMAL BREATHING PATTERN - Cardiovascular Exam Cardiovascular Exam: +S1, +S2 - GI/Abdominal Exam GI & Abdominal Exam: Normal Bowel Sounds Assessment and Plan (1) Anemia Assessment & Plan: chronic disease Status: Acute (2) Thrombocytopenia Assessment & Plan: resolved f/u HIT w/u Status: Acute
--- NOTE | 2018-08-11 22:45 | CP.PCM.PN ---
Subjective - Date & Time of Evaluation Date of Evaluation: 08/11/18 Time of Evaluation: 19:30 - Subjective Subjective: Patient seen and evaluated Patient is refusing Cardiac cath and open heart surgery Patient refusing Potassium and magnesium supplementation Psych consult on to assess decision making capacity ID and Nephrology on case Recommend continue medical therapy since the Cath for tomorrow cancelled Continue medical management for now Objective - Vital Signs/Intake and Output Vital Signs (last 24 hours): Temp Pulse Resp BP Pulse Ox 97.4 F L 84 20 128/78 97 08/11/18 15:00 08/11/18 16:00 08/11/18 15:00 08/11/18 15:00 08/11/18 15:00 Intake and Output: 08/11/18 08/12/18 18:59 06:59 Intake Total 500 Output Total 300 Balance 200 - Medications Medications: Current Medications Amlodipine Besylate (Norvasc) 10 mg PO DAILY [facility] Last Admin: 08/11/18 10:23 Dose: 10 mg Aspirin (Aspirin Chewable) 81 mg PO DAILY [facility] Last Admin: 08/11/18 10:23 Dose: 81 mg Diphenhydramine HCl (Benadryl) 25 mg PO Q6 PRN PRN Reason: Agitation Ergocalciferol (Drisdol 50,000 Intl Units Cap) 1 cap PO Q7D [facility] Last Admin: 08/09/18 14:07 Dose: 1 cap Ferrous Gluconate (Fergon) 324 mg PO TID [facility] Last Admin: 08/11/18 18:03 Dose: Not Given Haloperidol (Haldol) 5 mg PO Q6 PRN PRN Reason: Agitation Last Admin: 08/10/18 14:22 Dose: 5 mg Piperacillin Sod/Tazobactam Sod (Zosyn 2.25 Gm Iv Premix) 2.25 gm in 50 mls @ 100 mls/hr IVPB Q6H [facility]; Protocol Last Admin: 08/11/18 17:50 Dose: 100 mls/hr Methylprednisolone (Solu-Medrol) 40 mg IVP Q12H [facility] Last Admin: 08/11/18 21:06 Dose: 40 mg Pantoprazole Sodium (Protonix Susp) 40 mg PO 0600 [facility] Last Admin: 08/11/18 05:17 Dose: 40 mg Vitamin A (Vitamin A & D Oint Ud Foilpak) 1 ea TOP BID PRN PRN Reason: Dry skin Last Admin: 08/10/18 10:45 Dose: 1 ea Vitamin B Complex/Vit C/Folic Acid (Nephro-Fortino) 1 tab PO 0800 [facility] Last Admin: 08/11/18 10:23 Dose: 1 tab - Labs Labs: 08/11/18 13:51 08/11/18 11:13 PT 12.6 SECONDS (9.7-12.2) H 08/03/18 14:50 INR 1.2 08/03/18 14:50 APTT 26 SECONDS (21-34) D 08/05/18 06:31
[2018-08-12] MEDS: Piperacill/Tazo 2.25gm in Dex 2.25 GM/50 ML BAG IVPB SCH ×4 (05:24→22:50)
[2018-08-12] MEDS: Pantoprazole 40 mg Susp UD PO SCH (05:24)
--- NOTE | 2018-08-12 08:21 | CP.PCM.PN ---
Subjective - Date & Time of Evaluation Date of Evaluation: 08/12/18 Time of Evaluation: 06:30 - Subjective Subjective: Cardiothoracic surgery note for Dr. Weaver Pt seen and examined at bedside this AM. Patient denies any chest pain or SOB, patient expressed a desire to leave the hospital as soon as possible and did not want to discuss her medical state further Objective - Vital Signs/Intake and Output Vital Signs (last 24 hours): Temp Pulse Resp BP Pulse Ox 98.1 F 83 20 102/64 98 08/12/18 07:00 08/12/18 07:30 08/12/18 07:00 08/12/18 07:00 08/12/18 07:00 Intake and Output: 08/12/18 08/12/18 06:59 18:59 Intake Total 1040 Output Total 700 Balance 340 - Medications Medications: Current Medications Amlodipine Besylate (Norvasc) 10 mg PO DAILY [facility] Last Admin: 08/11/18 10:23 Dose: 10 mg Aspirin (Aspirin Chewable) 81 mg PO DAILY [facility] Last Admin: 08/11/18 10:23 Dose: 81 mg Diphenhydramine HCl (Benadryl) 25 mg PO Q6 PRN PRN Reason: Agitation Ergocalciferol (Drisdol 50,000 Intl Units Cap) 1 cap PO Q7D [facility] Last Admin: 08/09/18 14:07 Dose: 1 cap Ferrous Gluconate (Fergon) 324 mg PO TID [facility] Last Admin: 08/11/18 18:03 Dose: Not Given Haloperidol (Haldol) 5 mg PO Q6 PRN PRN Reason: Agitation Last Admin: 08/10/18 14:22 Dose: 5 mg Piperacillin Sod/Tazobactam Sod (Zosyn 2.25 Gm Iv Premix) 2.25 gm in 50 mls @ 100 mls/hr IVPB Q6H [facility]; Protocol Last Admin: 08/12/18 05:24 Dose: 100 mls/hr Methylprednisolone (Solu-Medrol) 40 mg IVP Q12H [facility] Last Admin: 08/11/18 21:06 Dose: 40 mg Pantoprazole Sodium (Protonix Susp) 40 mg PO 0600 [facility] Last Admin: 08/12/18 05:24 Dose: 40 mg Vitamin A (Vitamin A & D Oint Ud Foilpak) 1 ea TOP BID PRN PRN Reason: Dry skin Last Admin: 08/10/18 10:45 Dose: 1 ea Vitamin B Complex/Vit C/Folic Acid (Nephro-Fortino) 1 tab PO 0800 [facility] Last Admin: 08/11/18 10:23 Dose: 1 tab - Labs Labs: 08/11/18 13:51 08/12/18 06:54 PT 12.6 SECONDS (9.7-12.2) H 08/03/18 14:50 INR 1.2 08/03/18 14:50 APTT 26 SECONDS (21-34) D 08/05/18 06:31 - Constitutional Appears: Well, Non-toxic, No Acute Distress - Head Exam Head Exam: ATRAUMATIC, NORMOCEPHALIC - Eye Exam Eye Exam: Normal appearance. absent: Conjunctival injection, Scleral icterus - ENT Exam ENT Exam: Mucous Membranes Moist, Normal Oropharynx - Respiratory Exam Respiratory Exam: NORMAL BREATHING PATTERN. absent: Accessory Muscle Use, Respiratory Distress - Cardiovascular Exam Cardiovascular Exam: RRR - GI/Abdominal Exam GI & Abdominal Exam: Soft. absent: Distended, Tenderness - Extremities Exam Extremities Exam: absent: Calf Tenderness, Pedal Edema, Tenderness - Neurological Exam Neurological Exam: Alert, Awake, Oriented x3 - Psychiatric Exam Psychiatric exam: Normal Affect, Normal Mood - Skin Skin Exam: Dry, Normal Color, Warm Assessment and Plan - Assessment and Plan (Free Text) Assessment: 62F with suspicion for mitral valve endocarditis and severe mitral regurgitation Plan: F/U labs F/U repeat blood cultures F/U cardiac cath report and cardiology recs Patient expressing she does not want intervention today--will continue to discuss with the patient, but no plans for transfer/intervention until patient agrees and bacteremia is cleared F/U psych assessment Discussed with Dr. Owen Mata, PGY2
--- NOTE | 2018-08-12 10:09 | CP.PCM.PN ---
Subjective - Date & Time of Evaluation Date of Evaluation: 08/12/18 Time of Evaluation: 10:09 - Subjective Subjective: patient awake and conscious not in acute distress Vital sign is stable No nausea or vomiting Objective - Vital Signs/Intake and Output Vital Signs (last 24 hours): Temp Pulse Resp BP Pulse Ox 98.1 F 83 20 102/64 98 08/12/18 07:00 08/12/18 07:30 08/12/18 07:00 08/12/18 07:00 08/12/18 07:00 Intake and Output: 08/12/18 08/12/18 06:59 18:59 Intake Total 1040 Output Total 700 Balance 340 - Medications Medications: Current Medications Amlodipine Besylate (Norvasc) 10 mg PO DAILY [facility] Last Admin: 08/11/18 10:23 Dose: 10 mg Aspirin (Aspirin Chewable) 81 mg PO DAILY [facility] Last Admin: 08/11/18 10:23 Dose: 81 mg Diphenhydramine HCl (Benadryl) 25 mg PO Q6 PRN PRN Reason: Agitation Ergocalciferol (Drisdol 50,000 Intl Units Cap) 1 cap PO Q7D [facility] Last Admin: 08/09/18 14:07 Dose: 1 cap Ferrous Gluconate (Fergon) 324 mg PO TID [facility] Last Admin: 08/11/18 18:03 Dose: Not Given Haloperidol (Haldol) 5 mg PO Q6 PRN PRN Reason: Agitation Last Admin: 08/10/18 14:22 Dose: 5 mg Piperacillin Sod/Tazobactam Sod (Zosyn 2.25 Gm Iv Premix) 2.25 gm in 50 mls @ 100 mls/hr IVPB Q6H [facility]; Protocol Last Admin: 08/12/18 05:24 Dose: 100 mls/hr Methylprednisolone (Solu-Medrol) 40 mg IVP Q12H [facility] Last Admin: 08/11/18 21:06 Dose: 40 mg Pantoprazole Sodium (Protonix Susp) 40 mg PO 0600 [facility] Last Admin: 08/12/18 05:24 Dose: 40 mg Vitamin A (Vitamin A & D Oint Ud Foilpak) 1 ea TOP BID PRN PRN Reason: Dry skin Last Admin: 08/10/18 10:45 Dose: 1 ea Vitamin B Complex/Vit C/Folic Acid (Nephro-Fortino) 1 tab PO 0800 [facility] Last Admin: 08/11/18 10:23 Dose: 1 tab - Labs Labs: 08/11/18 13:51 08/12/18 06:54 PT 12.6 SECONDS (9.7-12.2) H 08/03/18 14:50 INR 1.2 08/03/18 14:50 APTT 26 SECONDS (21-34) D 08/05/18 06:31 Assessment and Plan (1) Acute kidney injury Assessment & Plan: Acute Kidney Injury (N17.9) likely due to ATN: improved Hypertensive Chronic Kidney Disease (I12.9) Hypokalemia, hypomagnesemia Chronic Kidney Disease (N18.9) Stage ? with ? mg proteinuria (R80.9) likely due to HTN Anemia (D64.9), Hyperphosphatemia (E83.39) left lung collapse, UTI severe Mitral regurg with infective endocarditis, depression/Anxiety Plan given potassium chloride supplement to correct hypokalemia Magnesium supplement to correct hypomagnesemia she had 1st session 07/31/18 and last HD on 08/04/18. then pt refused for further dialysi. Now renal function stable with stable/improving cr. continue to monitor her without dialysis Maintain hemodynamics stable. Avoid hypotension. Patient not on ACEI/ARB due to recent ROBIN Monitor Input/Output, daily weights and renal function with basic metabolic panel started Fe, MVI, and weekly Vit D PRBC as needed heme, cardiology following Status: Acute
--- NOTE | 2018-08-12 10:37 | PN ---
DATE: 08/10/2018 SUBJECTIVE: The patient is a 62 year-old female. The patient was seen and examined at the bedside on 08/10/2018. Looking comfortable. No nausea, vomiting, or diarrhea. No hematuria or hematochezia. as per Dr. Terrazas, the patient has mitral valve endocarditis with severe MR. CT Surgery evaluation for possibly MVR, but I never had discussion with Dr. Terrazas. We will try to talk to him about that. No fever. No chills. No hematuria. No hematochezia. PHYSICAL EXAMINATION: VITAL SIGNS: Temperature 98.1, pulse 89, respiratory rate 20, blood pressure 139/79, pulse oximetry 98. HEENT: Head is normocephalic and atraumatic. Eyes, PERRLA. Extraocular movements intact. Conjunctivae clear. Nose patent. Mucous membranes moist. NECK: Supple. No carotid bruits. No JVD or thyromegaly. CHEST: Bilaterally symmetrical. HEART: S1 and S2 positive. LUNGS: Clear to auscultation. ABDOMEN: Soft. Bowel sounds present. No organomegaly. EXTREMITIES: No edema. No cyanosis. NEUROLOGIC: The patient is awake, alert. Moving all four extremities. No focal deficits. MEDICATIONS: Norvasc, aspirin, vitamin , Lasix, meropenem, Ativan, Solu-Medrol, Protonix, vitamin B1. LABORATORY DATA: White blood cells 11.9, hemoglobin 8.8, hematocrit 23.1, platelets 103. Sodium 147, potassium 3.1, BUN 69, creatinine 1.8, glucose 160. ASSESSMENT AND PLAN: 62-year-old lady with anemia, leukocytosis, thrombocytopenia, hypokalemia, and renal insufficiency improving slowly, diabetes mellitus, hyperchloremia, cardiology consult was called, Dr. Terrazas did a transesophageal echocardiography, had mitral valve endocarditis with severe mitral regurgitation. CT surgery evaluation for possible mitral valve regurgitation is recommended. The patient has been seen by the psychiatrist, Dr. Elaine Edmondson. The patient's renal insufficiency is improving slowly. 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 Grant. The patient has history of hypertension, hypercholesterolemia, and depression, chronic ethanol use, mitral valve prolapsed. Discussion done with the nursing staff. Loftsman/Woman is on the case. Chest x-ray done. Her acute kidney injury is likely due to acute tubular necrosis, improved. Hypertensive chronic kidney disease, electrolyte imbalance, anemia, left lung prolapse, history of urinary tract infection. Gastrointestinal prophylaxis. Repeat laboratories. We will follow up. Pina Montiel MD
--- NOTE | 2018-08-12 11:40 | PCM.PYCHPN ---
Psychiatric Progress Note - Psychiatric Progress Note Patient seen today, length of contact: 15 min Patient Chief Complaint: I am still seeing things Problems Identified/Issues Discussed: Patient seen and evaluated, chart reviewed and discussed with the nurse. Pt remained disorganized and internally preoccupied. She remained isolated and withdrawn, and confined to her room. She still reports auditory hallucinations, visual hallucinations, and paranoia, but less in intensity.. Patient is compliant with medications and denies any side effects. Symptoms are improving but pt needs more time to stabilize. Support and psychoeducation given. Medication Change: Yes Medical Record Reviewed: Yes Mental Status Examination - Cognitive Function Orientation: Person, Place Memory: Impaired Attention: Poor Concentration: Poor Association: Loose Fund of Knowledge: Poor - Mood Mood: Anxious - Affect Affect: Broad - Speech Speech: Pressured - Formal Thought Process Formal Thought Process: Hallucinations, Delusions, Paranoia, Loosening of associations - Suicidal Ideation Suicidal Ideation: No - Homicidal Ideation Homicidal Ideation: No Goal/Treatment Plan - Goal/Treatment Plan Need for Continued Stay: Discharge may exacerbated symptoms, Severe functional impairment Progress Toward Problem(s) and Goals/Treatment Plan: Delirium due to medical condition Supportive therapy haldol hydroxyzine Pt doesnt has any capacity to make any decision. - Smoking Cessation Smoking Cessation Initiated: No
[2018-08-12] MEDS: Multivitamin Vitamin B Complex (Nephro-Vite) Tab PO SCH (12:08)
[2018-08-12] MEDS: Potassium Chloride 20 mEq ER Tab PO ONE ×2 (12:08→14:49)
[2018-08-12] MEDS: MethylPREDNISolone 40 mg Vial IVP SCH ×2 (12:08→22:09)
--- NOTE | 2018-08-12 14:54 | PN ---
DATE: 08/11/2018 SUBJECTIVE: The patient was seen and examined at the bedside on 08/11/2018. The patient is refusing cardiac cath, open heart surgery and even dialysis, even electrolyte management supplement is a problem. Psychiatrist is on the case. No fever. No chills. No hematuria. No hematochezia. No headache. No dizziness. PHYSICAL EXAMINATION: VITAL SIGNS: Temperature 97.4, pulse 84, respiratory rate 20, blood pressure 120/78, pulse oximetry 97%. HEENT: Head is normocephalic and atraumatic. Eyes PERRLA. Extraocular muscles are intact. Conjunctivae clear. Nose patent. Mucous membrane moist. NECK: Supple. No carotid bruits. No JVD or thyromegaly. CHEST: Bilaterally symmetrical. HEART: S1 and S2 positive. LUNGS: Clear to auscultation. ABDOMEN: Soft. Bowel sounds present. No organomegaly. EXTREMITIES: No edema. No cyanosis. NEUROLOGIC: The patient is awake and alert. Moving all four extremities. No focal deficits. MEDICATIONS: Amlodipine, aspirin, Benadryl, vitamin D, iron, Haldol, Zosyn, Solu-Medrol, Protonix, and vitamin A. LABORATORY DATA: White blood cell is 11.6, hemoglobin 9.2, hematocrit 28.6, platelets 164. Sodium 147, potassium 2.9. BUN 51, creatinine 1.2, glucose 152. ASSESSMENT AND PLAN: Ms. Romy Feng is a 62-year-old lady with leukocytosis, anemia, hypokalemia, iron deficiency, diabetes mellitus and endocarditis. The patient did need cardiac catheterization and open heart surgery as per Dr. Tye Terrazas, but the patient is refusing cardiac catheterization and open heart surgery. The patient is given potassium and magnesium supplementation. Dr. Terrazas tried to give the patient, but still the patient does not want that. Psychiatry is on the case. We will talk with the Psychiatry about the decision-making capacity of the patient, but I will be recommending medical management because the patient is refusing catheterization; she canceled catheterization. Reconstructive Dentist, Infectious Disease, and respiratory tech are on the case. Anemia is chronic. Thrombocytopenia is resolved. Follow up with heparin-induced thrombocytopenia antibodies. Renal insufficiency is improving. physical therapy. Endocarditis, antibiotics as per Infectious Disease recommendation, on Zosyn. History of rhabdomyolysis. Respiratory failure, was intubated and isolated. Metabolic acidosis _ looks like an old one. Repeat labs. We will follow up. Pina Montiel MD MTDLaura
[2018-08-12] MEDS ORDERED: Potassium Chloride 20 mEq ER Tab PO ONE ×2 (15:00→20:21)
--- NOTE | 2018-08-12 15:34 | CP.PCM.PN ---
Subjective - Date & Time of Evaluation Date of Evaluation: 08/12/18 Time of Evaluation: 10:00 - Subjective Subjective: afeb on IV rx blood c/s repeat neg thus far Objective - Vital Signs/Intake and Output Vital Signs (last 24 hours): Temp Pulse Resp BP Pulse Ox 98.1 F 83 20 102/64 98 08/12/18 07:00 08/12/18 07:30 08/12/18 07:00 08/12/18 07:00 08/12/18 07:00 Intake and Output: 08/12/18 08/12/18 06:59 18:59 Intake Total 1040 Output Total 700 Balance 340 - Medications Medications: Current Medications Amlodipine Besylate (Norvasc) 10 mg PO DAILY [facility] Last Admin: 08/12/18 12:08 Dose: Not Given Aspirin (Aspirin Chewable) 81 mg PO DAILY [facility] Last Admin: 08/12/18 12:07 Dose: Not Given Benztropine Mesylate (Cogentin) 1 mg PO Q6 PRN PRN Reason: Anaphylaxis Diphenhydramine HCl (Benadryl) 25 mg PO Q6 PRN PRN Reason: Agitation Ergocalciferol (Drisdol 50,000 Intl Units Cap) 1 cap PO Q7D [facility] Last Admin: 08/09/18 14:07 Dose: 1 cap Ferrous Gluconate (Fergon) 324 mg PO TID [facility] Last Admin: 08/12/18 14:20 Dose: Not Given Haloperidol (Haldol) 5 mg PO Q6 PRN PRN Reason: Agitation Last Admin: 08/10/18 14:22 Dose: 5 mg Haloperidol (Haldol) 5 mg PO BID [facility] Last Admin: 08/12/18 14:20 Dose: Not Given Piperacillin Sod/Tazobactam Sod (Zosyn 2.25 Gm Iv Premix) 2.25 gm in 50 mls @ 100 mls/hr IVPB Q6H [facility]; Protocol Last Admin: 08/12/18 12:08 Dose: Not Given Methylprednisolone (Solu-Medrol) 40 mg IVP Q12H [facility] Last Admin: 08/12/18 12:08 Dose: Not Given Oxcarbazepine (Trileptal) 150 mg PO BID [facility] Last Admin: 08/12/18 14:20 Dose: Not Given Pantoprazole Sodium (Protonix Susp) 40 mg PO 0600 [facility] Last Admin: 08/12/18 05:24 Dose: 40 mg Vitamin A (Vitamin A & D Oint Ud Foilpak) 1 ea TOP BID PRN PRN Reason: Dry skin Last Admin: 08/10/18 10:45 Dose: 1 ea Vitamin B Complex/Vit C/Folic Acid (Nephro-Fortino) 1 tab PO 0800 [facility] Last Admin: 08/12/18 12:08 Dose: Not Given - Labs Labs: 08/11/18 13:51 08/12/18 06:54 PT 12.6 SECONDS (9.7-12.2) H 08/03/18 14:50 INR 1.2 08/03/18 14:50 APTT 26 SECONDS (21-34) D 08/05/18 06:31 - Constitutional Appears: Non-toxic, Chronically Ill - Head Exam Head Exam: NORMOCEPHALIC - Eye Exam Eye Exam: absent: Scleral icterus - ENT Exam ENT Exam: Mucous Membranes Dry - Neck Exam Neck Exam: absent: Lymphadenopathy - Respiratory Exam Respiratory Exam: Decreased Breath Sounds - Cardiovascular Exam Cardiovascular Exam: REGULAR RHYTHM - GI/Abdominal Exam GI & Abdominal Exam: Distended Assessment and Plan (1) Acute kidney injury Status: Acute (2) Closed fracture of right proximal humerus Status: Acute (3) Metabolic acidosis Status: Acute (4) Respiratory failure Status: Acute (5) Rhabdomyolysis Status: Acute (6) Endocarditis of mitral valve Status: Acute (7) Vegetative endocarditis of mitral valve Status: Acute (8) MSSA (methicillin susceptible Staphylococcus aureus) septicemia Status: Acute - Assessment and Plan (Free Text) Assessment: nt iv rx for min [address] surg eval
[2018-08-13] MEDS: Piperacill/Tazo 2.25gm in Dex 2.25 GM/50 ML BAG IVPB SCH ×4 (05:51→22:52)
[2018-08-13] MEDS: Pantoprazole 40 mg Susp UD PO SCH (05:53)
--- NOTE | 2018-08-13 07:12 | CP.PCM.PN ---
Subjective - Date & Time of Evaluation Date of Evaluation: 08/12/18 Time of Evaluation: 20:40 - Subjective Subjective: Patient seen and evaluated Denies chest pain and dyspnea D/W Son Eriberto over the phone He does not want her mom to undergo cardiac cath or Open heart surgery Wants just medical therapy for the valve infection Patient also refusing cardiac cath and CT surgery Risks and benefits explained As per both the patient and the Son's request recommend only medical therapy Complete Endocarditis treatment as per ID protocol No further cardiac work up planned Thank you Objective - Vital Signs/Intake and Output Vital Signs (last 24 hours): Temp Pulse Resp BP Pulse Ox 98 F 78 20 126/79 96 08/12/18 23:20 08/13/18 01:05 08/12/18 23:20 08/12/18 23:20 08/12/18 23:20 Intake and Output: 08/13/18 08/13/18 06:59 18:59 Intake Total 150 Balance 150 - Medications Medications: Current Medications Amlodipine Besylate (Norvasc) 10 mg PO DAILY [facility] Last Admin: 08/12/18 12:08 Dose: Not Given Aspirin (Aspirin Chewable) 81 mg PO DAILY [facility] Last Admin: 08/12/18 12:07 Dose: Not Given Benztropine Mesylate (Cogentin) 1 mg PO Q6 PRN PRN Reason: Anaphylaxis Diphenhydramine HCl (Benadryl) 25 mg PO Q6 PRN PRN Reason: Agitation Ergocalciferol (Drisdol 50,000 Intl Units Cap) 1 cap PO Q7D [facility] Last Admin: 08/09/18 14:07 Dose: 1 cap Ferrous Gluconate (Fergon) 324 mg PO TID [facility] Last Admin: 08/12/18 18:11 Dose: 324 mg Haloperidol (Haldol) 5 mg PO Q6 PRN PRN Reason: Agitation Last Admin: 08/10/18 14:22 Dose: 5 mg Haloperidol (Haldol) 5 mg PO BID [facility] Last Admin: 08/12/18 18:11 Dose: 5 mg Piperacillin Sod/Tazobactam Sod (Zosyn 2.25 Gm Iv Premix) 2.25 gm in 50 mls @ 100 mls/hr IVPB Q6H [facility]; Protocol Last Admin: 08/13/18 05:51 Dose: 100 mls/hr Methylprednisolone (Solu-Medrol) 40 mg IVP Q12H [facility] Last Admin: 08/12/18 22:09 Dose: 40 mg Oxcarbazepine (Trileptal) 150 mg PO BID [facility] Last Admin: 08/12/18 18:10 Dose: 150 mg Pantoprazole Sodium (Protonix Susp) 40 mg PO 0600 [facility] Last Admin: 08/13/18 05:53 Dose: 40 mg Vitamin A (Vitamin A & D Oint Ud Foilpak) 1 ea TOP BID PRN PRN Reason: Dry skin Last Admin: 08/10/18 10:45 Dose: 1 ea Vitamin B Complex/Vit C/Folic Acid (Nephro-Fortino) 1 tab PO 0800 [facility] Last Admin: 08/12/18 12:08 Dose: Not Given - Labs Labs: 08/11/18 13:51 08/12/18 06:54 PT 12.6 SECONDS (9.7-12.2) H 08/03/18 14:50 INR 1.2 08/03/18 14:50 APTT 26 SECONDS (21-34) D 08/05/18 06:31
[2018-08-13] MEDS: Multivitamin Vitamin B Complex (Nephro-Vite) Tab PO SCH (10:39)
[2018-08-13] MEDS: MethylPREDNISolone 40 mg Vial IVP SCH ×2 (10:40→22:16)
--- NOTE | 2018-08-13 11:09 | CP.PCM.PN ---
Subjective - Date & Time of Evaluation Date of Evaluation: 08/13/18 Time of Evaluation: 11:06 - Subjective Subjective: Nephrology Consultation Note Assessment: stable Acute Kidney Injury (N17.9) likely due to ATN: improved (work up for GN neg): IMPROVING Hypertensive Chronic Kidney Disease (I12.9) Hypokalemia, hypomagnesemia Chronic Kidney Disease (N18.9) Stage ? with ? mg proteinuria (R80.9) likely due to HTN Anemia (D64.9), Hyperphosphatemia (E83.39) left lung collapse, UTI severe Mitral regurg with infective endocarditis, depression/Anxiety Plan she had 1st session 07/31/18 and last HD on 08/04/18. then pt refused for further dialysis. Now renal function stable with stable/improving cr. continue to monitor her without dialysis Maintain hemodynamics stable. Avoid hypotension. Patient not on ACEI/ARB due to recent ROBIN Monitor Input/Output, daily weights and renal function with basic metabolic panel started Fe, MVI, and weekly Vit D PRBC as needed heme, cardiology following supplement lytes as needed pt refusing all interventions but lacks decisional capacity as per psych. family and palliative care involved. Dose meds/antibiotics for improved GFR. Avoid fleets enema. Avoid nephrotoxins/NSAIDs/ iodinated contrast (unless needed emergently) Glycemic control Further work up for as per primary team Thanks for allowing me to participate in care of your patient. Will follow patient with you. Please call if any Qs. had d/w team Dr Heriberto Hernandez Office: [phone] Subjective: Noted events overnight. Patients says feels same. denies CP/SOB. had refused HD or catheter insertion earlier. renal function stable/improved RIAN: IE with severe MR pt absolutely refused Cath or surgical intervention. son also refused. pt lacks decisional capacity as per psych. Physical Examination: General Appearance: Comfortable, in no acute respiratory distress Vitals reviewed and noted as below Head; Atraumatic, normocephalic ENT: WNL EYES: Pupils are equal, round and reactive to light accommodation. Eye muscles and extraocular movement intact. Sclera is anicteric. Neck; supple no lymphadenopathy, no thyromegaly or bruit Lungs: Normal respiratory rate/effort. Breath sounds b/l improved Heart: normal rate. s1s2 normal. No rub or gallop. SM + at apex/LSB Extremities: 1+ edema. No varicose veins Neurological: Patient is alert awake oriented x 2 follow commands Skin: Warm and dry. Normal turgor. No rash. Palpitation: Normal elasticity for age Abdomen: Abdomen is soft. Bowel sounds +. There is no abdominal tenderness, no guarding/rigidity no organomegaly Psych: limited insight. MSK: no joint tenderness or swelling. Digits and nails normal, no deformity : kidney or bladder not palpable access: none Labs/imaging reviewed. Past medical history, past surgical history, family history, social history, allergy reviewed and noted as below Family hx: no hx of CKD. Rest non-contributory work up: CXR: left lung collapse Hep B/C neg UA 2+ protein 1+ blood Objective - Vital Signs/Intake and Output Vital Signs (last 24 hours): Temp Pulse Resp BP Pulse Ox 97.8 F 97 H 20 128/73 97 08/13/18 08:31 08/13/18 08:31 08/13/18 08:31 08/13/18 08:31 08/13/18 08:31 Intake and Output: 08/13/18 08/13/18 06:59 18:59 Intake Total 150 Balance 150 - Medications Medications: Current Medications Amlodipine Besylate (Norvasc) 10 mg PO DAILY [facility] Last Admin: 08/13/18 10:40 Dose: 10 mg Aspirin (Aspirin Chewable) 81 mg PO DAILY [facility] Last Admin: 08/13/18 10:39 Dose: 81 mg Benztropine Mesylate (Cogentin) 1 mg PO Q6 PRN PRN Reason: Anaphylaxis Diphenhydramine HCl (Benadryl) 25 mg PO Q6 PRN PRN Reason: Agitation Ergocalciferol (Drisdol 50,000 Intl Units Cap) 1 cap PO Q7D [facility] Last Admin: 08/09/18 14:07 Dose: 1 cap Ferrous Gluconate (Fergon) 324 mg PO TID [facility] Last Admin: 08/13/18 10:39 Dose: 324 mg Haloperidol (Haldol) 5 mg PO Q6 PRN PRN Reason: Agitation Last Admin: 08/10/18 14:22 Dose: 5 mg Haloperidol (Haldol) 5 mg PO BID [facility] Last Admin: 08/13/18 10:40 Dose: 5 mg Piperacillin Sod/Tazobactam Sod (Zosyn 2.25 Gm Iv Premix) 2.25 gm in 50 mls @ 100 mls/hr IVPB Q6H [facility]; Protocol Last Admin: 08/13/18 05:51 Dose: 100 mls/hr Methylprednisolone (Solu-Medrol) 40 mg IVP Q12H [facility] Last Admin: 08/13/18 10:40 Dose: 40 mg Oxcarbazepine (Trileptal) 150 mg PO BID [facility] Last Admin: 08/13/18 10:40 Dose: 150 mg Pantoprazole Sodium (Protonix Susp) 40 mg PO 0600 [facility] Last Admin: 08/13/18 05:53 Dose: 40 mg Vitamin A (Vitamin A & D Oint Ud Foilpak) 1 ea TOP BID PRN PRN Reason: Dry skin Last Admin: 08/10/18 10:45 Dose: 1 ea Vitamin B Complex/Vit C/Folic Acid (Nephro-Fortino) 1 tab PO 0800 [facility] Last Admin: 08/13/18 10:39 Dose: 1 tab - Labs Labs: 08/11/18 13:51 08/12/18 06:54 PT 12.6 SECONDS (9.7-12.2) H 08/03/18 14:50 INR 1.2 08/03/18 14:50 APTT 26 SECONDS (21-34) D 08/05/18 06:31
[2018-08-14] MEDS: Pantoprazole 40 mg Susp UD PO SCH (05:48)
[2018-08-14] MEDS: Piperacill/Tazo 2.25gm in Dex 2.25 GM/50 ML BAG IVPB SCH ×2 (05:58→12:31)
--- NOTE | 2018-08-14 11:11 | CP.PCM.PN ---
Subjective - Date & Time of Evaluation Date of Evaluation: 08/14/18 Time of Evaluation: 11:09 - Subjective Subjective: Nephrology Consultation Note Assessment: stable Acute Kidney Injury (N17.9) likely due to ATN: improved (work up for GN neg): IMPROVING Hypertensive Chronic Kidney Disease (I12.9) Hypokalemia, hypomagnesemia Chronic Kidney Disease (N18.9) Stage ? with ? mg proteinuria (R80.9) likely due to HTN Anemia (D64.9), Hyperphosphatemia (E83.39) left lung collapse, UTI severe Mitral regurg with infective endocarditis, depression/Anxiety Plan she had 1st session 07/31/18 and last HD on 08/04/18. then pt refused for further dialysis. Now renal function stable with stable/improving cr. continue to monitor her without dialysis Maintain hemodynamics stable. Avoid hypotension. Patient not on ACEI/ARB due to recent ROBIN Monitor Input/Output, daily weights and renal function with basic metabolic panel started Fe, MVI, and weekly Vit D PRBC as needed heme, cardiology following supplement lytes as needed pt refusing all interventions but lacks decisional capacity as per psych. family and palliative care involved. added lasix, KDUR and Magnesium supplements for 1 week Dose meds/antibiotics for improved GFR. Avoid fleets enema. Avoid nephrotoxins/NSAIDs/ iodinated contrast (unless needed emergently) Glycemic control Further work up for as per primary team pt stable from renal perspective Thanks for allowing me to participate in care of your patient. Will follow patient with you. Please call if any Qs. had d/w team Dr Heriberto Hernandez Office: [phone] Subjective: Noted events overnight. Patients says feels same. denies CP/SOB. had refused HD or catheter insertion earlier. renal function stable/improved RIAN: IE with severe MR pt absolutely refused Cath or surgical intervention for IE/MR. son also refused. pt lacks decisional capacity as per psych. pt says I just want to get out of here. Physical Examination: General Appearance: Comfortable, in no acute respiratory distress Vitals reviewed and noted as below Head; Atraumatic, normocephalic ENT: WNL EYES: Pupils are equal, round and reactive to light accommodation. Eye muscles and extraocular movement intact. Sclera is anicteric. Neck; supple no lymphadenopathy, no thyromegaly or bruit Lungs: Normal respiratory rate/effort. Breath sounds b/l improved Heart: normal rate. s1s2 normal. No rub or gallop. SM + at apex/LSB Extremities: 1+ edema. No varicose veins Neurological: Patient is alert awake oriented x 2 follow commands Skin: Warm and dry. Normal turgor. No rash. Palpitation: Normal elasticity for age Abdomen: Abdomen is soft. Bowel sounds +. There is no abdominal tenderness, no guarding/rigidity no organomegaly Psych: limited insight. MSK: no joint tenderness or swelling. Digits and nails normal, no deformity : kidney or bladder not palpable access: none Labs/imaging reviewed. Past medical history, past surgical history, family history, social history, a llergy reviewed and noted as below Family hx: no hx of CKD. Rest non-contributory work up: CXR: left lung collapse Hep B/C neg UA 2+ protein 1+ blood Objective - Vital Signs/Intake and Output Vital Signs (last 24 hours): Temp Pulse Resp BP Pulse Ox 97.9 F 93 H 20 120/72 95 08/14/18 08:50 08/14/18 08:50 08/14/18 08:50 08/14/18 08:50 08/14/18 08:50 Intake and Output: 08/14/18 08/14/18 06:59 18:59 Intake Total 400 Output Total 850 Balance -450 - Medications Medications: Current Medications Amlodipine Besylate (Norvasc) 10 mg PO DAILY [facility] Last Admin: 08/13/18 10:40 Dose: 10 mg Aspirin (Aspirin Chewable) 81 mg PO DAILY [facility] Last Admin: 08/13/18 10:39 Dose: 81 mg Benztropine Mesylate (Cogentin) 1 mg PO Q6 PRN PRN Reason: Anaphylaxis Diphenhydramine HCl (Benadryl) 25 mg PO Q6 PRN PRN Reason: Agitation Ergocalciferol (Drisdol 50,000 Intl Units Cap) 1 cap PO Q7D [facility] Last Admin: 08/09/18 14:07 Dose: 1 cap Ferrous Gluconate (Fergon) 324 mg PO TID [facility] Last Admin: 08/13/18 18:31 Dose: 324 mg Haloperidol (Haldol) 5 mg PO Q6 PRN PRN Reason: Agitation Last Admin: 08/10/18 14:22 Dose: 5 mg Haloperidol (Haldol) 5 mg PO BID [facility] Last Admin: 08/13/18 18:30 Dose: 5 mg Piperacillin Sod/Tazobactam Sod (Zosyn 2.25 Gm Iv Premix) 2.25 gm in 50 mls @ 100 mls/hr IVPB Q6H [facility]; Protocol Last Admin: 08/14/18 05:58 Dose: 100 mls/hr Methylprednisolone (Solu-Medrol) 40 mg IVP Q12H [facility] Last Admin: 08/13/18 22:16 Dose: 40 mg Oxcarbazepine (Trileptal) 150 mg PO BID [facility] Last Admin: 08/13/18 18:31 Dose: 150 mg Pantoprazole Sodium (Protonix Susp) 40 mg PO 0600 [facility] Last Admin: 08/14/18 05:48 Dose: 40 mg Vitamin A (Vitamin A & D Oint Ud Foilpak) 1 ea TOP BID PRN PRN Reason: Dry skin Last Admin: 08/10/18 10:45 Dose: 1 ea Vitamin B Complex/Vit C/Folic Acid (Nephro-Fortino) 1 tab PO 0800 [facility] Last Admin: 08/13/18 10:39 Dose: 1 tab - Labs Labs: 08/11/18 13:51 08/12/18 06:54 PT 12.6 SECONDS (9.7-12.2) H 08/03/18 14:50 INR 1.2 08/03/18 14:50 APTT 26 SECONDS (21-34) D 08/05/18 06:31
[2018-08-14] MEDS: Potassium Chloride 20 mEq ER Tab PO SCH (12:30)
[2018-08-14] MEDS: Multivitamin Vitamin B Complex (Nephro-Vite) Tab PO SCH (12:30)
[2018-08-14] MEDS: Magnesium Oxide 400 mg Tab UD PO SCH ×2 (12:30→18:27)
[2018-08-14] MEDS: MethylPREDNISolone 40 mg Vial IVP SCH ×2 (12:31→22:12)
[2018-08-14] MEDS ORDERED: metroNIDAZOLE IV 500 mg/100 ml 500 MG/100 ML BAG IVPB SCH (15:00)
--- NOTE | 2018-08-14 15:02 | CP.PCM.PN ---
Subjective - Date & Time of Evaluation Date of Evaluation: 08/14/18 Time of Evaluation: 09:00 - Subjective Subjective: c/o lbm on zosyn yesicaley antibiotic related will switch to nafcillin Objective - Vital Signs/Intake and Output Vital Signs (last 24 hours): Temp Pulse Resp BP Pulse Ox 97.9 F 93 H 20 120/72 95 08/14/18 08:50 08/14/18 08:50 08/14/18 08:50 08/14/18 12:30 08/14/18 08:50 Intake and Output: 08/14/18 08/14/18 06:59 18:59 Intake Total 400 Output Total 850 Balance -450 - Medications Medications: Current Medications Amlodipine Besylate (Norvasc) 10 mg PO DAILY [facility] Last Admin: 08/14/18 12:31 Dose: 10 mg Aspirin (Aspirin Chewable) 81 mg PO DAILY [facility] Last Admin: 08/14/18 12:16 Dose: 81 mg Benztropine Mesylate (Cogentin) 1 mg PO Q6 PRN PRN Reason: Anaphylaxis Diphenhydramine HCl (Benadryl) 25 mg PO Q6 PRN PRN Reason: Agitation Ergocalciferol (Drisdol 50,000 Intl Units Cap) 1 cap PO Q7D [facility] Last Admin: 08/09/18 14:07 Dose: 1 cap Ferrous Gluconate (Fergon) 324 mg PO TID [facility] Last Admin: 08/14/18 14:32 Dose: 324 mg Furosemide (Lasix) 20 mg PO DAILY [facility] Stop: 08/20/18 10:01 Last Admin: 08/14/18 12:30 Dose: 20 mg Haloperidol (Haldol) 5 mg PO Q6 PRN PRN Reason: Agitation Last Admin: 08/10/18 14:22 Dose: 5 mg Haloperidol (Haldol) 5 mg PO BID [facility] Last Admin: 08/14/18 12:29 Dose: 5 mg Metronidazole (Flagyl) 500 mg in 100 mls @ 100 mls/hr IVPB Q8H [facility]; Protocol Magnesium Oxide (Mag-Ox) 400 mg PO BID [facility] Last Admin: 08/14/18 12:30 Dose: 400 mg Methylprednisolone (Solu-Medrol) 40 mg IVP Q12H [facility] Last Admin: 08/14/18 12:31 Dose: 40 mg Oxcarbazepine (Trileptal) 150 mg PO BID [facility] Last Admin: 08/14/18 12:31 Dose: 150 mg Pantoprazole Sodium (Protonix Susp) 40 mg PO 0600 [facility] Last Admin: 08/14/18 05:48 Dose: 40 mg Potassium Chloride (K-Dur 20 Meq Er Tab) 20 meq PO DAILY [facility] Stop: 08/20/18 10:01 Last Admin: 08/14/18 12:30 Dose: 20 meq Vitamin A (Vitamin A & D Oint Ud Foilpak) 1 ea TOP BID PRN PRN Reason: Dry skin Last Admin: 08/10/18 10:45 Dose: 1 ea Vitamin B Complex/Vit C/Folic Acid (Nephro-Fortino) 1 tab PO 0800 [facility] Last Admin: 08/14/18 12:30 Dose: 1 tab - Labs Labs: 08/11/18 13:51 08/12/18 06:54 PT 12.6 SECONDS (9.7-12.2) H 08/03/18 14:50 INR 1.2 08/03/18 14:50 APTT 26 SECONDS (21-34) D 08/05/18 06:31 - Constitutional Appears: Non-toxic, Chronically Ill - Head Exam Head Exam: NORMOCEPHALIC - Eye Exam Eye Exam: absent: Scleral icterus - ENT Exam ENT Exam: Mucous Membranes Dry - Neck Exam Neck Exam: absent: Lymphadenopathy - Respiratory Exam Respiratory Exam: Decreased Breath Sounds - Cardiovascular Exam Cardiovascular Exam: REGULAR RHYTHM - GI/Abdominal Exam GI & Abdominal Exam: Distended, Soft - Rectal Exam Rectal Exam: Deferred Assessment and Plan (1) Acute kidney injury Status: Acute (2) Closed fracture of right proximal humerus Status: Acute (3) Metabolic acidosis Status: Acute (4) Respiratory failure Status: Acute (5) Rhabdomyolysis Status: Acute (6) Endocarditis of mitral valve Status: Acute (7) Vegetative endocarditis of mitral valve Status: Acute (8) MSSA (methicillin susceptible Staphylococcus aureus) septicemia Status: Acute
--- NOTE | 2018-08-14 15:40 | PN ---
DATE: 08/13/2018 SUBJECTIVE: The patient was seen and examined at the bedside on 08/13/2018. Looking comfortable. No nausea, vomiting or diarrhea. No hematuria or hematochezia. The patient is oriented only x2, refusing most of the procedures and treatments. A length of time discussion done with the patient, informed her about medical conditions and I do not know up to what extent she understands. According to Psychiatry, the patient is non-competent. We will try to contact the patient's family. PHYSICAL EXAMINATION: VITAL SIGNS: Temperature 97.8, pulse 97, respiratory rate 20, blood pressure 120/78, pulse oximetry 97. HEENT: Head is normocephalic and atraumatic. Eyes PERRLA. Extraocular muscles are intact. Conjunctivae clear. Nose patent. Mucous membranes are moist. NECK: Supple. No carotid bruits. No JVD or thyromegaly. CHEST: Bilaterally symmetrical. HEART: S1 and S2 positive. LUNGS: Clear to auscultation. ABDOMEN: Soft. Bowel sounds are present. No organomegaly. EXTREMITIES: No edema. No cyanosis. NEUROLOGIC: The patient is awake and alert. Moving all four extremities. No focal deficits. MEDICATIONS: Norvasc, aspirin, Cogentin, Benadryl, vitamin D, Fergon, Haldol, Zosyn, Solu-Medrol, Trileptal, Protonix. LABORATORY DATA: White blood cell 11.6, hemoglobin 9.2, hematocrit 28.3, platelets 164. Sodium 141, potassium 3.4, BUN noted , creatinine 1.2, glucose 147. ASSESSMENT AND PLAN: Ms. Romy Feng is a 62-year-old lady with leukocytosis; anemia; hypokalemia; hyperglycemia; acute kidney injury, likely due to acute tubular necrosis, improved, workup for glomerulonephritis is negative as per Nephrology; hypertensive chronic kidney disease; hypokalemia and hypomagnesemia, replacing; hyperphosphatemia; left lung collapse; severe mitral valve regurgitation with infective endocarditis; depression, and anxiety. She got only one dialysis, after that the patient refused. Supplement electrolytes. The patient refused all interventions, but we will ask the decision capacity as per Psych. Family and Palliative Care involved. As per Infectious Disease, the patient needs IV antibiotics, but the patient is refusing the PICC line. On Wednesday, we will talk to the social and political studies professor. Otherwise, no change in the status. We will follow up. Pina Montiel MD [facility]
[2018-08-14] MEDS: metroNIDAZOLE IV 500 mg/100 ml 500 MG/100 ML BAG IVPB SCH ×2 (16:41→23:47)
--- NOTE | 2018-08-14 23:19 | CP.PCM.PN ---
Subjective - Date & Time of Evaluation Date of Evaluation: 08/12/18 Time of Evaluation: 19:00 - Subjective Subjective: Feeling better Objective - Vital Signs/Intake and Output Vital Signs (last 24 hours): Temp Pulse Resp BP Pulse Ox 97.9 F 107 H 20 105/64 97 08/14/18 15:16 08/14/18 15:16 08/14/18 15:16 08/14/18 15:16 08/14/18 15:16 Intake and Output: 08/14/18 08/15/18 18:59 06:59 Intake Total 240 Output Total 200 250 Balance 40 -250 - Medications Medications: Current Medications Amlodipine Besylate (Norvasc) 10 mg PO DAILY [facility] Last Admin: 08/14/18 12:31 Dose: 10 mg Aspirin (Aspirin Chewable) 81 mg PO DAILY [facility] Last Admin: 08/14/18 12:16 Dose: 81 mg Benztropine Mesylate (Cogentin) 1 mg PO Q6 PRN PRN Reason: Anaphylaxis Diphenhydramine HCl (Benadryl) 25 mg PO Q6 PRN PRN Reason: Agitation Ergocalciferol (Drisdol 50,000 Intl Units Cap) 1 cap PO Q7D [facility] Last Admin: 08/09/18 14:07 Dose: 1 cap Ferrous Gluconate (Fergon) 324 mg PO TID [facility] Last Admin: 08/14/18 18:27 Dose: 324 mg Furosemide (Lasix) 20 mg PO DAILY [facility] Stop: 08/20/18 10:01 Last Admin: 08/14/18 12:30 Dose: 20 mg Haloperidol (Haldol) 5 mg PO Q6 PRN PRN Reason: Agitation Last Admin: 08/10/18 14:22 Dose: 5 mg Haloperidol (Haldol) 5 mg PO BID [facility] Last Admin: 08/14/18 18:27 Dose: 5 mg Metronidazole (Flagyl) 500 mg in 100 mls @ 100 mls/hr IVPB Q8H [facility]; Protocol Last Admin: 08/14/18 16:41 Dose: 100 mls/hr Nafcillin Sodium 2 gm/ Sodium (Chloride) 250 mls @ 250 mls/hr IVPB Q6 [facility]; Protocol Last Admin: 08/14/18 18:28 Dose: 250 mls/hr Magnesium Oxide (Mag-Ox) 400 mg PO BID [facility] Last Admin: 08/14/18 18:27 Dose: 400 mg Methylprednisolone (Solu-Medrol) 40 mg IVP Q12H [facility] Last Admin: 08/14/18 22:12 Dose: 40 mg Oxcarbazepine (Trileptal) 150 mg PO BID [facility] Last Admin: 08/14/18 18:26 Dose: 150 mg Pantoprazole Sodium (Protonix Susp) 40 mg PO 0600 [facility] Last Admin: 08/14/18 05:48 Dose: 40 mg Potassium Chloride (K-Dur 20 Meq Er Tab) 20 meq PO DAILY [facility] Stop: 08/20/18 10:01 Last Admin: 08/14/18 12:30 Dose: 20 meq Vitamin A (Vitamin A & D Oint Ud Foilpak) 1 ea TOP BID PRN PRN Reason: Dry skin Last Admin: 08/10/18 10:45 Dose: 1 ea Vitamin B Complex/Vit C/Folic Acid (Nephro-Fortino) 1 tab PO 0800 [facility] Last Admin: 08/14/18 12:30 Dose: 1 tab - Labs Labs: 08/11/18 13:51 08/12/18 06:54 PT 12.6 SECONDS (9.7-12.2) H 08/03/18 14:50 INR 1.2 08/03/18 14:50 APTT 26 SECONDS (21-34) D 08/05/18 06:31 - Head Exam Head Exam: ATRAUMATIC - Eye Exam Eye Exam: Normal appearance - ENT Exam ENT Exam: Mucous Membranes Dry - Respiratory Exam Respiratory Exam: NORMAL BREATHING PATTERN - Cardiovascular Exam Cardiovascular Exam: +S1, +S2 - GI/Abdominal Exam GI & Abdominal Exam: Normal Bowel Sounds Assessment and Plan (1) Anemia Assessment & Plan: chronic disease Status: Acute (2) Thrombocytopenia Assessment & Plan: Heparin AB positive f/u serotonin release assay to evaluate for HIT Status: Acute
--- NOTE | 2018-08-14 23:21 | CP.PCM.PN ---
Subjective - Date & Time of Evaluation Date of Evaluation: 08/13/18 Time of Evaluation: 19:00 - Subjective Subjective: Feeling better. Objective - Vital Signs/Intake and Output Vital Signs (last 24 hours): Temp Pulse Resp BP Pulse Ox 97.9 F 107 H 20 105/64 97 08/14/18 15:16 08/14/18 15:16 08/14/18 15:16 08/14/18 15:16 08/14/18 15:16 Intake and Output: 08/14/18 08/15/18 18:59 06:59 Intake Total 240 Output Total 200 250 Balance 40 -250 - Medications Medications: Current Medications Amlodipine Besylate (Norvasc) 10 mg PO DAILY [facility] Last Admin: 08/14/18 12:31 Dose: 10 mg Aspirin (Aspirin Chewable) 81 mg PO DAILY [facility] Last Admin: 08/14/18 12:16 Dose: 81 mg Benztropine Mesylate (Cogentin) 1 mg PO Q6 PRN PRN Reason: Anaphylaxis Diphenhydramine HCl (Benadryl) 25 mg PO Q6 PRN PRN Reason: Agitation Ergocalciferol (Drisdol 50,000 Intl Units Cap) 1 cap PO Q7D [facility] Last Admin: 08/09/18 14:07 Dose: 1 cap Ferrous Gluconate (Fergon) 324 mg PO TID [facility] Last Admin: 08/14/18 18:27 Dose: 324 mg Furosemide (Lasix) 20 mg PO DAILY [facility] Stop: 08/20/18 10:01 Last Admin: 08/14/18 12:30 Dose: 20 mg Haloperidol (Haldol) 5 mg PO Q6 PRN PRN Reason: Agitation Last Admin: 08/10/18 14:22 Dose: 5 mg Haloperidol (Haldol) 5 mg PO BID [facility] Last Admin: 08/14/18 18:27 Dose: 5 mg Metronidazole (Flagyl) 500 mg in 100 mls @ 100 mls/hr IVPB Q8H [facility]; Protocol Last Admin: 08/14/18 16:41 Dose: 100 mls/hr Nafcillin Sodium 2 gm/ Sodium (Chloride) 250 mls @ 250 mls/hr IVPB Q6 [facility]; Protocol Last Admin: 08/14/18 18:28 Dose: 250 mls/hr Magnesium Oxide (Mag-Ox) 400 mg PO BID [facility] Last Admin: 08/14/18 18:27 Dose: 400 mg Methylprednisolone (Solu-Medrol) 40 mg IVP Q12H [facility] Last Admin: 08/14/18 22:12 Dose: 40 mg Oxcarbazepine (Trileptal) 150 mg PO BID [facility] Last Admin: 08/14/18 18:26 Dose: 150 mg Pantoprazole Sodium (Protonix Susp) 40 mg PO 0600 [facility] Last Admin: 08/14/18 05:48 Dose: 40 mg Potassium Chloride (K-Dur 20 Meq Er Tab) 20 meq PO DAILY [facility] Stop: 08/20/18 10:01 Last Admin: 08/14/18 12:30 Dose: 20 meq Vitamin A (Vitamin A & D Oint Ud Foilpak) 1 ea TOP BID PRN PRN Reason: Dry skin Last Admin: 08/10/18 10:45 Dose: 1 ea Vitamin B Complex/Vit C/Folic Acid (Nephro-Fortino) 1 tab PO 0800 [facility] Last Admin: 08/14/18 12:30 Dose: 1 tab - Labs Labs: 08/11/18 13:51 08/12/18 06:54 PT 12.6 SECONDS (9.7-12.2) H 08/03/18 14:50 INR 1.2 08/03/18 14:50 APTT 26 SECONDS (21-34) D 08/05/18 06:31 - Head Exam Head Exam: ATRAUMATIC - Eye Exam Eye Exam: Normal appearance - ENT Exam ENT Exam: Mucous Membranes Dry - Respiratory Exam Respiratory Exam: NORMAL BREATHING PATTERN - Cardiovascular Exam Cardiovascular Exam: +S1, +S2 - GI/Abdominal Exam GI & Abdominal Exam: Normal Bowel Sounds Assessment and Plan (1) Anemia Assessment & Plan: chronic disease Status: Acute (2) Thrombocytopenia Assessment & Plan: low fibrinogen; resolving DIC f/u HIT w/u Status: Acute
[2018-08-15] MEDS: Pantoprazole 40 mg Susp UD PO SCH (05:55)
--- NOTE | 2018-08-15 07:24 | PN ---
DATE: 08/14/2018 SUBJECTIVE: The patient seen and examined at bedside on 08/14/2018. The patient is feeling better. The patient says she is feels same. Denies chest pain, shortness of breath. Refuses hemodialysis catheter insertion and renal function is stable and improving. The patient absolutely refuses cath or surgical intervention for the patient lacks decisional capacity as per Psych. The patient states I just want to get out of here. No fever, no chills. No hematuria or hematochezia. PHYSICAL EXAMINATION: VITAL SIGNS: Temperature 97.9, pulse 93, respiratory rate 20, blood pressure 120/72, pulse oximetry 95. HEENT: Head normocephalic and atraumatic. Eyes PERRLA. Extraocular muscles intact. Conjunctiva clear. Nose patent. Mucous membrane moist. NECK: Supple. No carotid bruit. No JVD or thyromegaly. CHEST: Bilaterally symmetrical. HEART: S1, S2 positive. LUNGS: Clear to auscultation. ABDOMEN: Soft. Bowel sounds present. No organomegaly. EXTREMITIES: No edema. No cyanosis. NEUROLOGIC: The patient is awake and alert. Moving all 4 extremities. No focal deficit. MEDICATIONS: Norvasc, aspirin, Cogentin, Benadryl, Fergon, Haldol, Zosyn, Solu-Medrol, Trileptal, Protonix, vitamin A. LABORATORY DATA: White blood cell is 11.6, hemoglobin 9.2, hematocrit 28.3, platelets 164,000, sodium 141, potassium 3.4, BUN 45, creatinine 1.2, glucose 147. ASSESSMENT AND PLAN: The patient is a 62 years old lady with leukocytosis, anemia, hypokalemia, hyperglycemia, acute kidney injury likely due to acute tubular necrosis improved. Hypertension and electrolyte imbalance. Left lung collapse, severe mitral regurgitation with infective endocarditis, depression, anxiety. She received one session of dialysis. Avoid hypotension. The patient not on AC/ARB due to recent acute kidney injury. Hematology, Cardiology are on the case. The patient refuses all interventions but lack of decision capacity as per Psych. Family and palliative care involved. Added Lasix, K-Dur, magnesium supplement. ID changes the antibiotics. Repeat labs. We will follow up. Pina Montiel MD [facility] # [id number] SARA
--- NOTE | 2018-08-15 07:25 | PN ---
DATE: 08/12/2018 SUBJECTIVE: The patient is a 62-year-old female. The patient was seen and examined at the bedside on 08/12/2018. Looking comfortable. She is awake and conscious and not in acute distress. No fever. No chills. No nausea, vomiting, or diarrhea. No hematuria or hematochezia. No headache. No dizziness. PHYSICAL EXAMINATION: VITAL SIGNS: Temperature 98.1, pulse 53, respiratory rate 20, blood pressure 102/64, pulse oximetry 98. HEENT: Head normocephalic and atraumatic. Eyes PERRLA. Extraocular muscles intact. Conjunctivae clear. Nose patent. Mucous membranes moist. NECK: Supple. No carotid bruit, JVD, or thyromegaly. CHEST: Bilaterally symmetrical. HEART: S1 and S2 positive. LUNGS: Clear to auscultation. ABDOMEN: Soft. Bowel sounds present. No organomegaly. EXTREMITIES: No edema. No cyanosis. NEUROLOGIC: The patient is awake and alert. Moving all four extremities. No focal deficits. MEDICATIONS: Norvasc, aspirin, Benadryl, vitamin D, iron, Haldol, Zosyn, Solu-Medrol, Protonix, vitamin A, vitamin D. LABORATORY DATA: White blood cells 11.6, hemoglobin 9.2, hematocrit 28.3, platelets 154. Sodium 141, potassium 3.4, BUN 54, creatinine 1.2, glucose 147. ASSESSMENT AND PLAN: The patient is a 62-year-old lady with leukocytosis, anemia, hypokalemia, renal insufficiency, hyperglycemia. Had acute kidney injury, improving; hypertensive chronic kidney disease; hypokalemia; hypomagnesemia, improved; chronic kidney disease; anemia; hyperphosphatemia; left lung collapse; urinary tract infection; severe mitral regurgitation with infective endocarditis; depression; and anxiety. [employer] Expl[employer] Engineer, Infectious Disease, and bar staff are on the case. The patient and family refused catheterization. We will talk to the patient that at least the patient will need one month antibiotics. Otherwise continue current treatment. Gastrointestinal and deep venous thrombosis prophylaxis. Repeat labs. We will follow up. Pina Montiel MD [facility] # [id number]
[2018-08-15] MEDS: metroNIDAZOLE IV 500 mg/100 ml 500 MG/100 ML BAG IVPB SCH ×3 (09:59→23:59)
[2018-08-15] MEDS: MethylPREDNISolone 40 mg Vial IVP SCH (11:10)
[2018-08-15] MEDS: Multivitamin Vitamin B Complex (Nephro-Vite) Tab PO SCH (11:11)
[2018-08-15] MEDS: Potassium Chloride 20 mEq ER Tab PO SCH (11:11)
[2018-08-15] MEDS: Magnesium Oxide 400 mg Tab UD PO SCH ×2 (11:11→18:36)
--- NOTE | 2018-08-15 11:49 | CP.PCM.PN ---
Subjective - Date & Time of Evaluation Date of Evaluation: 08/15/18 Time of Evaluation: 08:00 - Subjective Subjective: AFEB ON ANTIBIOTICS FOR ENDOCARDITIS REFUSING SURGERY Objective - Vital Signs/Intake and Output Vital Signs (last 24 hours): Temp Pulse Resp BP Pulse Ox 98.2 F 90 20 133/81 96 08/15/18 07:00 08/15/18 07:54 08/15/18 07:00 08/15/18 11:11 08/15/18 07:00 Intake and Output: 08/15/18 08/15/18 06:59 18:59 Intake Total 550 Output Total 500 Balance 50 - Medications Medications: Current Medications Amlodipine Besylate (Norvasc) 10 mg PO DAILY [facility] Last Admin: 08/15/18 11:11 Dose: 10 mg Aspirin (Aspirin Chewable) 81 mg PO DAILY [facility] Last Admin: 08/15/18 11:11 Dose: 81 mg Benztropine Mesylate (Cogentin) 1 mg PO Q6 PRN PRN Reason: Anaphylaxis Diphenhydramine HCl (Benadryl) 25 mg PO Q6 PRN PRN Reason: Agitation Ergocalciferol (Drisdol 50,000 Intl Units Cap) 1 cap PO Q7D [facility] Last Admin: 08/09/18 14:07 Dose: 1 cap Ferrous Gluconate (Fergon) 324 mg PO TID [facility] Last Admin: 08/15/18 11:13 Dose: 324 mg Furosemide (Lasix) 20 mg PO DAILY [facility] Stop: 08/20/18 10:01 Last Admin: 08/15/18 11:11 Dose: 20 mg Haloperidol (Haldol) 5 mg PO Q6 PRN PRN Reason: Agitation Last Admin: 08/10/18 14:22 Dose: 5 mg Haloperidol (Haldol) 5 mg PO BID [facility] Last Admin: 08/15/18 11:12 Dose: 5 mg Metronidazole (Flagyl) 500 mg in 100 mls @ 100 mls/hr IVPB Q8H [facility]; Protocol Last Admin: 08/15/18 09:59 Dose: 100 mls/hr Nafcillin Sodium 2 gm/ Sodium (Chloride) 250 mls @ 250 mls/hr IVPB Q6 [facility]; Protocol Last Admin: 08/15/18 11:25 Dose: 250 mls/hr Magnesium Oxide (Mag-Ox) 400 mg PO BID [facility] Last Admin: 08/15/18 11:11 Dose: 400 mg Methylprednisolone (Solu-Medrol) 40 mg IVP Q12H [facility] Last Admin: 08/15/18 11:10 Dose: 40 mg Oxcarbazepine (Trileptal) 150 mg PO BID [facility] Last Admin: 08/15/18 11:12 Dose: 150 mg Pantoprazole Sodium (Protonix Susp) 40 mg PO 0600 [facility] Last Admin: 08/15/18 05:55 Dose: 40 mg Potassium Chloride (K-Dur 20 Meq Er Tab) 20 meq PO DAILY [facility] Stop: 08/20/18 10:01 Last Admin: 08/15/18 11:11 Dose: 20 meq Vitamin A (Vitamin A & D Oint Ud Foilpak) 1 ea TOP BID PRN PRN Reason: Dry skin Last Admin: 08/10/18 10:45 Dose: 1 ea Vitamin B Complex/Vit C/Folic Acid (Nephro-Fortino) 1 tab PO 0800 [facility] Last Admin: 08/15/18 11:11 Dose: 1 tab - Labs Labs: 08/11/18 13:51 08/12/18 06:54 PT 12.6 SECONDS (9.7-12.2) H 08/03/18 14:50 INR 1.2 08/03/18 14:50 APTT 26 SECONDS (21-34) D 08/05/18 06:31 - Constitutional Appears: Non-toxic, Chronically Ill - Head Exam Head Exam: NORMOCEPHALIC - Eye Exam Eye Exam: PERRL - ENT Exam ENT Exam: Mucous Membranes Dry - Neck Exam Neck Exam: absent: Lymphadenopathy - Respiratory Exam Respiratory Exam: Decreased Breath Sounds - Cardiovascular Exam Cardiovascular Exam: REGULAR RHYTHM - GI/Abdominal Exam GI & Abdominal Exam: Distended Assessment and Plan (1) Acute kidney injury Status: Acute (2) Closed fracture of right proximal humerus Status: Acute (3) Metabolic acidosis Status: Acute (4) Respiratory failure Status: Acute (5) Rhabdomyolysis Status: Acute (6) Endocarditis of mitral valve Status: Acute (7) Vegetative endocarditis of mitral valve Status: Acute (8) MSSA (methicillin susceptible Staphylococcus aureus) septicemia Status: Acute
--- NOTE | 2018-08-15 14:26 | CP.PCM.PN ---
Subjective - Date & Time of Evaluation Date of Evaluation: 08/15/18 Time of Evaluation: 14:25 - Subjective Subjective: Nephrology Consultation Note Assessment: stable Acute Kidney Injury (N17.9) likely due to ATN: improved (work up for GN neg): IMPROVING Hypertensive Chronic Kidney Disease (I12.9) Hypokalemia, hypomagnesemia Chronic Kidney Disease (N18.9) Stage ? with ? mg proteinuria (R80.9) likely due to HTN Anemia (D64.9), Hyperphosphatemia (E83.39) left lung collapse, UTI severe Mitral regurg with infective endocarditis, depression/Anxiety Plan she had 1st session 07/31/18 and last HD on 08/04/18. then pt refused for further dialysis. Now renal function stable with stable/improving cr. continue to monitor her without dialysis Maintain hemodynamics stable. Avoid hypotension. Patient not on ACEI/ARB due to recent ROBIN Monitor Input/Output, daily weights and renal function with basic metabolic panel started Fe, MVI, and weekly Vit D PRBC as needed heme, cardiology following supplement lytes as needed pt refusing all interventions but lacks decisional capacity as per psych. family and palliative care involved. added lasix, KDUR and Magnesium supplements for 1 week Dose meds/antibiotics for improved GFR. Avoid fleets enema. Avoid nephrotoxins/NSAIDs/ iodinated contrast (unless needed emergently) Glycemic control Further work up for as per primary team pt stable from renal perspective Thanks for allowing me to participate in care of your patient. Will follow patient with you. Please call if any Qs. had d/w team Dr Heriberto Hernandez Office: [phone] Subjective: Noted events overnight. Patients says feels same. denies CP/SOB. had refused HD or catheter insertion earlier. renal function stable/improved RIAN: IE with severe MR pt absolutely refused Cath or surgical intervention for IE/MR. son also refused. pt lacks decisional capacity as per psych. pt says I just want to get out of here. Physical Examination: General Appearance: Comfortable, in no acute respiratory distress Vitals reviewed and noted as below Head; Atraumatic, normocephalic ENT: WNL EYES: Pupils are equal, round and reactive to light accommodation. Eye muscles and extraocular movement intact. Sclera is anicteric. Neck; supple no lymphadenopathy, no thyromegaly or bruit Lungs: Normal respiratory rate/effort. Breath sounds b/l improved Heart: normal rate. s1s2 normal. No rub or gallop. SM + at apex/LSB Extremities: trace edema. No varicose veins Neurological: Patient is alert awake oriented x 2 follow commands Skin: Warm and dry. Normal turgor. No rash. Palpitation: Normal elasticity for age Abdomen: Abdomen is soft. Bowel sounds +. There is no abdominal tenderness, no guarding/rigidity no organomegaly Psych: limited insight. MSK: no joint tenderness or swelling. Digits and nails normal, no deformity : kidney or bladder not palpable access: none Labs/imaging reviewed. Past medical history, past surgical history, family history, social history, allergy reviewed and noted as below Family hx: no hx of CKD. Rest non-contributory work up: CXR: left lung collapse Hep B/C neg UA 2+ protein 1+ blood Objective - Vital Signs/Intake and Output Vital Signs (last 24 hours): Temp Pulse Resp BP Pulse Ox 98.2 F 118 H 20 133/81 96 08/15/18 07:00 08/15/18 12:13 08/15/18 07:00 08/15/18 11:11 08/15/18 07:00 Intake and Output: 08/15/18 08/15/18 06:59 18:59 Intake Total 550 Output Total 500 Balance 50 - Medications Medications: Current Medications Amlodipine Besylate (Norvasc) 10 mg PO DAILY [facility] Last Admin: 08/15/18 11:11 Dose: 10 mg Aspirin (Aspirin Chewable) 81 mg PO DAILY [facility] Last Admin: 08/15/18 11:11 Dose: 81 mg Benztropine Mesylate (Cogentin) 1 mg PO Q6 PRN PRN Reason: Anaphylaxis Diphenhydramine HCl (Benadryl) 25 mg PO Q6 PRN PRN Reason: Agitation Ergocalciferol (Drisdol 50,000 Intl Units Cap) 1 cap PO Q7D [facility] Last Admin: 08/09/18 14:07 Dose: 1 cap Ferrous Gluconate (Fergon) 324 mg PO TID [facility] Last Admin: 08/15/18 14:11 Dose: 324 mg Furosemide (Lasix) 20 mg PO DAILY [facility] Stop: 08/20/18 10:01 Last Admin: 08/15/18 11:11 Dose: 20 mg Haloperidol (Haldol) 5 mg PO Q6 PRN PRN Reason: Agitation Last Admin: 08/10/18 14:22 Dose: 5 mg Haloperidol (Haldol) 5 mg PO BID [facility] Last Admin: 08/15/18 11:12 Dose: 5 mg Metronidazole (Flagyl) 500 mg in 100 mls @ 100 mls/hr IVPB Q8H [facility]; Protocol Last Admin: 08/15/18 09:59 Dose: 100 mls/hr Nafcillin Sodium 2 gm/ Sodium (Chloride) 250 mls @ 250 mls/hr IVPB Q6 [facility]; Pro [facility]col Last Admin: 08/15/18 11:25 Dose: 250 mls/hr Magnesium Oxide (Mag-Ox) 400 mg PO BID [facility] Last Admin: 08/15/18 11:11 Dose: 400 mg Methylprednisolone (Solu-Medrol) 40 mg IVP Q12H [facility] Last Admin: 08/15/18 11:10 Dose: 40 mg Oxcarbazepine (Trileptal) 150 mg PO BID [facility] Last Admin: 08/15/18 11:12 Dose: 150 mg Pantoprazole Sodium (Protonix Susp) 40 mg PO 0600 [facility] Last Admin: 08/15/18 05:55 Dose: 40 mg Potassium Chloride (K-Dur 20 Meq Er Tab) 20 meq PO DAILY [facility] Stop: 08/20/18 10:01 Last Admin: 08/15/18 11:11 Dose: 20 meq Vitamin A (Vitamin A & D Oint Ud Foilpak) 1 ea TOP BID PRN PRN Reason: Dry skin Last Admin: 08/10/18 10:45 Dose: 1 ea Vitamin B Complex/Vit C/Folic Acid (Nephro-Fortino) 1 tab PO 0800 [facility] Last Admin: 08/15/18 11:11 Dose: 1 tab - Labs Labs: 08/11/18 13:51 08/12/18 06:54 PT 12.6 SECONDS (9.7-12.2) H 08/03/18 14:50 INR 1.2 08/03/18 14:50 APTT 26 SECONDS (21-34) D 08/05/18 06:31
[2018-08-15] MEDS: MethylPREDNISolone 40 mg Vial IV SCH (21:58)
--- NOTE | 2018-08-15 22:36 | CP.PCM.PN ---
Subjective - Date & Time of Evaluation Date of Evaluation: 08/15/18 Time of Evaluation: 19:00 - Subjective Subjective: No complaints. Objective - Vital Signs/Intake and Output Vital Signs (last 24 hours): Temp Pulse Resp BP Pulse Ox 98.3 F 109 H 20 112/70 97 08/15/18 15:00 08/15/18 15:00 08/15/18 15:00 08/15/18 15:00 08/15/18 15:00 Intake and Output: 08/15/18 08/16/18 18:59 06:59 Intake Total 200 Output Total 300 900 Balance -100 -900 - Medications Medications: Current Medications Amlodipine Besylate (Norvasc) 10 mg PO DAILY [facility] Last Admin: 08/15/18 11:11 Dose: 10 mg Aspirin (Aspirin Chewable) 81 mg PO DAILY [facility] Last Admin: 08/15/18 11:11 Dose: 81 mg Benztropine Mesylate (Cogentin) 1 mg PO Q6 PRN PRN Reason: Anaphylaxis Diphenhydramine HCl (Benadryl) 25 mg PO Q6 PRN PRN Reason: Agitation Ergocalciferol (Drisdol 50,000 Intl Units Cap) 1 cap PO Q7D [facility] Last Admin: 08/09/18 14:07 Dose: 1 cap Ferrous Gluconate (Fergon) 324 mg PO TID [facility] Last Admin: 08/15/18 18:36 Dose: 324 mg Furosemide (Lasix) 20 mg PO DAILY [facility] Stop: 08/20/18 10:01 Last Admin: 08/15/18 11:11 Dose: 20 mg Haloperidol (Haldol) 5 mg PO Q6 PRN PRN Reason: Agitation Last Admin: 08/10/18 14:22 Dose: 5 mg Haloperidol (Haldol) 5 mg PO BID [facility] Last Admin: 08/15/18 18:36 Dose: 5 mg Metronidazole (Flagyl) 500 mg in 100 mls @ 100 mls/hr IVPB Q8H [facility]; Protocol Last Admin: 08/15/18 16:35 Dose: 100 mls/hr Nafcillin Sodium 2 gm/ Sodium (Chloride) 250 mls @ 250 mls/hr IVPB Q6 [facility]; Protocol Last Admin: 08/15/18 18:36 Dose: 250 mls/hr Magnesium Oxide (Mag-Ox) 400 mg PO BID [facility] Last Admin: 08/15/18 18:36 Dose: 400 mg Methylprednisolone (Solu-Medrol) 20 mg IV Q12H [facility] Last Admin: 08/15/18 21:58 Dose: 20 mg Oxcarbazepine (Trileptal) 150 mg PO BID [facility] Last Admin: 08/15/18 18:36 Dose: 150 mg Pantoprazole Sodium (Protonix Susp) 40 mg PO 0600 [facility] Potassium Chloride (K-Dur 20 Meq Er Tab) 20 meq PO DAILY [facility] Stop: 08/20/18 10:01 Last Admin: 08/15/18 11:11 Dose: 20 meq Vitamin A (Vitamin A & D Oint Ud Foilpak) 1 ea TOP BID PRN PRN Reason: Dry skin Last Admin: 08/10/18 10:45 Dose: 1 ea Vitamin B Complex/Vit C/Folic Acid (Nephro-Fortino) 1 tab PO 0800 [facility] Last Admin: 08/15/18 11:11 Dose: 1 tab - Labs Labs: 08/11/18 13:51 08/12/18 06:54 PT 12.6 SECONDS (9.7-12.2) H 08/03/18 14:50 INR 1.2 08/03/18 14:50 APTT 26 SECONDS (21-34) D 08/05/18 06:31 - Head Exam Head Exam: ATRAUMATIC - Eye Exam Eye Exam: Normal appearance - ENT Exam ENT Exam: Mucous Membranes Dry - Respiratory Exam Respiratory Exam: NORMAL BREATHING PATTERN - Cardiovascular Exam Cardiovascular Exam: +S1, +S2 - GI/Abdominal Exam GI & Abdominal Exam: Normal Bowel Sounds Assessment and Plan (1) Anemia Assessment & Plan: chronic disease Status: Acute (2) Thrombocytopenia Assessment & Plan: low fibrinogen; resolving DIC HIT w/u negative repeat CBC in AM Status: Acute
--- NOTE | 2018-08-16 01:49 | PN ---
DATE: 08/15/2018 SUBJECTIVE: The patient is a 62-year-old female. The patient was seen and examined at the bedside on 08/15/2018 and looking comfortable. Having diarrhea today. Dr. Grant added Flagyl. Sent the stool for C. difficile toxin colitis. No fever. No chills. Still the patient is noncompliant. Very poor historian. PHYSICAL EXAMINATION: VITAL SIGNS: Temperature 98.3, pulse 109, respiratory rate 20, blood pressure 112/70, pulse oximetry 97. HEENT: Normocephalic and atraumatic. Eyes PERRLA. Extraocular muscles intact. Conjunctivae clear. Nose patent. Mucous membranes moist. NECK: Supple. No carotid bruit, JVD, or thyromegaly. CHEST: Bilaterally symmetrical. HEART: S1 and S2 positive. LUNGS: Clear to auscultation. ABDOMEN: Soft. Bowel sounds positive. No organomegaly. EXTREMITIES: No edema. No cyanosis. NEUROLOGIC: The patient awake and alert. Follows simple commands. MEDICATIONS: Aspirin, Cogentin, Benadryl, vitamin D, ferrous sulfate, Lasix, Haldol, Flagyl, magnesium, Solu-Medrol, Trileptal. LABORATORY DATA: White blood cells 11.6, hemoglobin 9.2, hematocrit 28.3, platelets 164,000. Sodium 141, potassium 3.4, BUN 47, creatinine 1.2, glucose 147. ASSESSMENT AND PLAN: Ms. Romy Feng is a 62-year-old lady with leukocytosis, anemia, hypokalemia, hyperglycemia. Has anemia of chronic disease, thrombocytopenia, Having diarrhea, sent stool for Clostridium difficile toxin colitis. Seen by Dr. Heriberto Hernandez, general counselor. The patient has endocarditis but refusing peripherally inserted central catheter line. Seen by the appeals examiner and psychiatrist. According to the psychiatrist, the patient is not competent to make the decision. Gastrointestinal and deep venous thrombosis prophylaxis. Repeat labs. We will follow. Pina Montiel MD MTDLaura
[2018-08-16 06:36] LABS: BASO % 0.2 % (0.0-2.0); EOS % 0.3 % (0.0-4.0); HEMOGLOBIN 9.5 g/dL (11.0-16.0); LYMPH # 0.9 K/uL (1.0-4.3); LYMPH % 13.8 % (20.0-40.0); MEAN CELL VOLUME 96.5 fL (81.0-99.0); MEAN CORPUSCULAR HGB CONC 33.1 g/dL (33.0-37.0); MEAN PLATELET VOLUME 10.1 fL (7.2-11.7); MONO # 0.4 K/uL (0.0-0.8); MONO % 6.3 % (0.0-10.0); NEUT # 5.5 K/uL (1.8-7.0); NEUT % 79.4 % (50.0-75.0); RBC 2.96 Mil/uL (3.80-5.20); RED CELL DISTRIBUTION WIDTH 17.2 % (11.5-14.5); WHITE BLOOD COUNT 6.9 K/uL (4.8-10.8)
[2018-08-16 08:12] LABS: ALBUMIN 2.6 g/dL (3.5-5.0)
[2018-08-16] MEDS: metroNIDAZOLE IV 500 mg/100 ml 500 MG/100 ML BAG IVPB SCH ×3 (08:30→23:37)
[2018-08-16] MEDS: MethylPREDNISolone 40 mg Vial IV SCH ×3 (10:14→21:41)
[2018-08-16] MEDS: Magnesium Oxide 400 mg Tab UD PO SCH (10:15)
[2018-08-16] MEDS: Vitamins A & D Oint UD Foilpak TOP PRN (10:20)
[2018-08-16] MEDS: Multivitamin Vitamin B Complex (Nephro-Vite) Tab PO SCH (10:21)
[2018-08-16] MEDS: Potassium Chloride 20 mEq ER Tab PO SCH (10:24)
[2018-08-16] MEDS: Pantoprazole 40 mg Susp UD PO SCH (13:29)
--- NOTE | 2018-08-16 15:02 | CP.PCM.PN ---
Subjective - Date & Time of Evaluation Date of Evaluation: 08/16/18 Time of Evaluation: 15:01 - Subjective Subjective: Nephrology Consultation Note Assessment: stable Acute Kidney Injury (N17.9) likely due to ATN: improved (work up for GN neg): IMPROVING Hypertensive Chronic Kidney Disease (I12.9) Hypokalemia, hypomagnesemia Chronic Kidney Disease (N18.9) Stage ? with ? mg proteinuria (R80.9) likely due to HTN Anemia (D64.9), Hyperphosphatemia (E83.39) left lung collapse, UTI severe Mitral regurg with infective endocarditis, depression/Anxiety Plan she had 1st session 07/31/18 and last HD on 08/04/18. then pt refused for further dialysis. Now renal function stable with stable/improving cr. continue to monitor her without dialysis Maintain hemodynamics stable. Avoid hypotension. Patient not on ACEI/ARB due to recent ROBIN Monitor Input/Output, daily weights and renal function with basic metabolic panel started Fe, MVI, and weekly Vit D PRBC as needed heme, cardiology following supplement lytes as needed pt refusing all interventions but lacks decisional capacity as per psych. family and palliative care involved. added lasix, KDUR supplements for 1 week d/c mag due to diarrhoea. consider checking for C.diff Dose meds/antibiotics for improved GFR. Avoid fleets enema. Avoid nephrotoxins/NSAIDs/ iodinated contrast (unless needed emergently) Glycemic control Further work up for as per primary team pt stable from renal perspective Thanks for allowing me to participate in care of your patient. Will follow patient with you. Please call if any Qs. had d/w team Dr Heriberto Hernandez Office: [phone] Subjective: Noted events overnight. Patients says feels same. denies CP/SOB. had refused HD or catheter insertion earlier. renal function stable/improved RIAN: IE with severe MR pt absolutely refused Cath or surgical intervention for IE/MR. son also refused. pt lacks decisional capacity as per psych. pt says I just want to get out of here. c/o loose stool Physical Examination: General Appearance: Comfortable, in no acute respiratory distress Vitals reviewed and noted as below Head; Atraumatic, normocephalic ENT: WNL EYES: Pupils are equal, round and reactive to light accommodation. Eye muscles and extraocular movement intact. Sclera is anicteric. Neck; supple no lymphadenopathy, no thyromegaly or bruit Lungs: Normal respiratory rate/effort. Breath sounds b/l improved Heart: normal rate. s1s2 normal. No rub or gallop. SM + at apex/LSB Extremities: trace edema. No varicose veins Neurological: Patient is alert awake oriented x 2 follow commands Skin: Warm and dry. Normal turgor. No rash. Palpitation: Normal elasticity for age Abdomen: Abdomen is soft. Bowel sounds +. There is no abdominal tenderness, no guarding/rigidity no organomegaly Psych: limited insight. MSK: no joint tenderness or swelling. Digits and nails normal, no deformity : kidney or bladder not palpable access: none Labs/imaging reviewed. Past medical history, past surgical history, family history, social history, allergy reviewed and noted as below Family hx: no hx of CKD. Rest non-contributory work up: CXR: left lung collapse Hep B/C neg UA 2+ protein 1+ blood Objective - Vital Signs/Intake and Output Vital Signs (last 24 hours): Temp Pulse Resp BP Pulse Ox 97.2 F L 102 H 20 102/65 98 08/16/18 08:11 08/16/18 08:11 08/16/18 08:11 08/16/18 08:11 08/16/18 08:11 Intake and Output: 08/16/18 08/16/18 06:59 18:59 Output Total 900 Balance -900 - Medications Medications: Current Medications Amlodipine Besylate (Norvasc) 10 mg PO DAILY [facility] Last Admin: 08/16/18 10:21 Dose: Not Given Aspirin (Aspirin Chewable) 81 mg PO DAILY [facility] Last Admin: 08/16/18 10:18 Dose: 81 mg Benztropine Mesylate (Cogentin) 1 mg PO Q6 PRN PRN Reason: Anaphylaxis Diphenhydramine HCl (Benadryl) 25 mg PO Q6 PRN PRN Reason: Agitation Ergocalciferol (Drisdol 50,000 Intl Units Cap) 1 cap PO Q7D [facility] Last Admin: 08/09/18 14:07 Dose: 1 cap Ferrous Gluconate (Fergon) 324 mg PO TID [facility] Last Admin: 08/16/18 13:21 Dose: 324 mg Furosemide (Lasix) 20 mg PO DAILY [facility] Stop: 08/20/18 10:01 Last Admin: 08/16/18 10:52 Dose: Not Given Haloperidol (Haldol) 5 mg PO Q6 PRN PRN Reason: Agitation Last Admin: 08/10/18 14:22 Dose: 5 mg Haloperidol (Haldol) 5 mg PO BID [facility] Last Admin: 08/16/18 10:25 Dose: 5 mg Metronidazole (Flagyl) 500 mg in 100 mls @ 100 mls/hr IVPB Q8H [facility]; Protocol Last Admin: 08/16/18 08:30 Dose: 100 mls/hr Nafcillin Sodium 2 gm/ Sodium (Chloride) 250 mls @ 250 mls/hr IVPB Q6 [facility]; Protocol Last Admin: 08/16/18 12:35 Dose: 250 mls/hr Magnesium Oxide (Mag-Ox) 400 mg PO BID [facility] Last Admin: 08/16/18 10:15 Dose: 400 mg Methylprednisolone (Solu-Medrol) 20 mg IV Q12H [facility] Last Admin: 08/16/18 10:20 Dose: 20 mg Oxcarbazepine (Trileptal) 150 mg PO BID [facility] Last Admin: 08/16/18 10:16 Dose: 150 mg Pantoprazole Sodium (Protonix Susp) 40 mg PO 0600 [facility] Last Admin: 08/16/18 13:29 Dose: 40 mg Potassium Chloride (K-Dur 20 Meq Er Tab) 20 meq PO DAILY [facility] Stop: 08/20/18 10:01 Last Admin: 08/16/18 10:24 Dose: 20 meq Vitamin A (Vitamin A & D Oint Ud Foilpak) 1 ea TOP BID PRN PRN Reason: Dry skin Last Admin: 08/16/18 10:20 Dose: 1 ea Vitamin B Complex/Vit C/Folic Acid (Nephro-Fortino) 1 tab PO 0800 [facility] Last Admin: 08/16/18 10:21 Dose: 1 tab - Labs Labs: 08/16/18 06:17 08/16/18 06:17 PT 12.6 SECONDS (9.7-12.2) H 08/03/18 14:50 INR 1.2 08/03/18 14:50 APTT 26 SECONDS (21-34) D 08/05/18 06:31
[2018-08-16] MEDS: Ergocalciferol 50,000 Intl Units Cap PO SCH (17:12)
--- NOTE | 2018-08-16 22:17 | CP.PCM.PN ---
Subjective - Date & Time of Evaluation Date of Evaluation: 08/16/18 Time of Evaluation: 13:05 - Subjective Subjective: Patient seen and examined No cardiac events noted Denies chest pain and dyspnea Physical examination - Constitutional Appears: Well, No Acute Distress - Head Exam Head Exam: ATRAUMATIC, NORMAL INSPECTION, NORMOCEPHALIC - Eye Exam Eye Exam: EOMI, Normal appearance Pupil Exam: NORMAL ACCOMODATION - ENT Exam ENT Exam: Mucous Membranes Moist, Normal Exam - Neck Exam Neck Exam: Full ROM, Normal Inspection. absent: Lymphadenopathy - Respiratory Exam Respiratory Exam: Clear to Ausculation Bilateral, NORMAL BREATHING PATTERN. absent: Wheezes - Cardiovascular Exam Cardiovascular Exam: +S1, +S2, Murmur (systolic murmur) - GI/Abdominal Exam GI & Abdominal Exam: Soft, Normal Bowel Sounds. absent: Tenderness - Rectal Exam Rectal Exam: NORMAL INSPECTION - Extremities Exam Extremities Exam: Full ROM, Normal Capillary Refill, Normal Inspection. absent: Joint Swelling, Pedal Edema - Back Exam Back Exam: NORMAL INSPECTION - Neurological Exam Neurological Exam: Alert, Awake, CN II-XII Intact, Oriented x3 - Psychiatric Exam Psychiatric exam: Normal Mood - Skin Skin Exam: Dry, Intact, Warm Assessment and Plan - Assessment and Plan (Free Text) Assessment: Pitral Valve endocarditis with MR As per the patient and son's wishes medical management Objective - Vital Signs/Intake and Output Vital Signs (last 24 hours): Temp Pulse Resp BP Pulse Ox 97.9 F 108 H 20 153/91 H 100 08/16/18 15:05 08/16/18 15:05 08/16/18 15:05 08/16/18 15:05 08/16/18 15:05 - Medications Medications: Current Medications Amlodipine Besylate (Norvasc) 10 mg PO DAILY [facility] Last Admin: 08/16/18 10:21 Dose: Not Given Aspirin (Aspirin Chewable) 81 mg PO DAILY [facility] Last Admin: 08/16/18 10:18 Dose: 81 mg Benztropine Mesylate (Cogentin) 1 mg PO Q6 PRN PRN Reason: Anaphylaxis Diphenhydramine HCl (Benadryl) 25 mg PO Q6 PRN PRN Reason: Agitation Ergocalciferol (Drisdol 50,000 Intl Units Cap) 1 cap PO Q7D [facility] Last Admin: 10/23/18 17:12 Dose: 1 cap Ferrous Gluconate (Fergon) 324 mg PO TID [facility] Last Admin: 08/16/18 17:03 Dose: 324 mg Furosemide (Lasix) 20 mg PO DAILY [facility] Stop: 08/20/18 10:01 Last Admin: 08/16/18 10:52 Dose: Not Given Haloperidol (Haldol) 5 mg PO Q6 PRN PRN Reason: Agitation Last Admin: 08/10/18 14:22 Dose: 5 mg Haloperidol (Haldol) 5 mg PO BID [facility] Last Admin: 08/16/18 17:03 Dose: 5 mg Metronidazole (Flagyl) 500 mg in 100 mls @ 100 mls/hr IVPB Q8H [facility]; Protocol Last Admin: 08/16/18 17:00 Dose: 100 mls/hr Nafcillin Sodium 2 gm/ Sodium (Chloride) 250 mls @ 250 mls/hr IVPB Q6 [facility]; Protocol Last Admin: 08/16/18 17:03 Dose: 250 mls/hr Methylprednisolone (Solu-Medrol) 20 mg IV Q12H [facility] Last Admin: 08/16/18 21:41 Dose: 20 mg Oxcarbazepine (Trileptal) 150 mg PO BID [facility] Last Admin: 08/16/18 17:03 Dose: 150 mg Pantoprazole Sodium (Protonix Susp) 40 mg PO 0600 [facility] Last Admin: 08/16/18 13:29 Dose: 40 mg Potassium Chloride (K-Dur 20 Meq Er Tab) 20 meq PO DAILY [facility] Stop: 08/20/18 10:01 Last Admin: 08/16/18 10:24 Dose: 20 meq Vitamin A [facility] 1 ea TOP BID PRN PRN Reason: Dry skin Last Admin: 08/16/18 10:20 Dose: 1 ea Vitamin B Complex/Vit C/Folic Acid (Nephro-Fortino) 1 tab PO 0800 [facility] Last Admin: 08/16/18 10:21 Dose: 1 tab - Labs Labs: 08/16/18 06:17 08/16/18 06:17 PT 12.6 SECONDS (9.7-12.2) H 08/03/18 14:50 INR 1.2 08/03/18 14:50 APTT 26 SECONDS (21-34) D 08/05/18 06:31
--- NOTE | 2018-08-17 01:05 | CP.PCM.PN ---
Subjective - Date & Time of Evaluation Date of Evaluation: 08/16/18 Time of Evaluation: 14:00 - Subjective Subjective: No complaints. Objective - Vital Signs/Intake and Output Vital Signs (last 24 hours): Temp Pulse Resp BP Pulse Ox 97.9 F 108 H 20 153/91 H 100 08/16/18 15:05 08/16/18 15:05 08/16/18 15:05 08/16/18 15:05 08/16/18 15:05 Intake and Output: 08/16/18 08/17/18 18:59 06:59 Output Total 300 Balance -300 - Medications Medications: Current Medications Amlodipine Besylate (Norvasc) 10 mg PO DAILY [facility] Last Admin: 08/16/18 10:21 Dose: Not Given Aspirin (Aspirin Chewable) 81 mg PO DAILY [facility] Last Admin: 08/16/18 10:18 Dose: 81 mg Benztropine Mesylate (Cogentin) 1 mg PO Q6 PRN PRN Reason: Anaphylaxis Diphenhydramine HCl (Benadryl) 25 mg PO Q6 PRN PRN Reason: Agitation Ergocalciferol (Drisdol 50,000 Intl Units Cap) 1 cap PO Q7D [facility] Last Admin: 08/16/18 17:12 Dose: 1 cap Ferrous Gluconate (Fergon) 324 mg PO TID [facility] Last Admin: 08/16/18 17:03 Dose: 324 mg Furosemide (Lasix) 20 mg PO DAILY [facility] Stop: 08/20/18 10:01 Last Admin: 08/16/18 10:52 Dose: Not Given Haloperidol (Haldol) 5 mg PO Q6 PRN PRN Reason: Agitation Last Admin: 08/10/18 14:22 Dose: 5 mg Haloperidol (Haldol) 5 mg PO BID [facility] Last Admin: 08/16/18 17:03 Dose: 5 mg Metronidazole (Flagyl) 500 mg in 100 mls @ 100 mls/hr IVPB Q8H [facility]; Protocol Last Admin: 08/16/18 23:37 Dose: 100 mls/hr Nafcillin Sodium 2 gm/ Sodium (Chloride) 250 mls @ 250 mls/hr IVPB Q6 [facility]; Protocol Last Admin: 08/17/18 00:49 Dose: 250 mls/hr Methylprednisolone (Solu-Medrol) 20 mg IV Q12H [facility] Last Admin: 08/16/18 21:41 Dose: 20 mg Oxcarbazepine (Trileptal) 150 mg PO BID [facility] Last Admin: 08/16/18 17:03 Dose: 150 mg Pantoprazole Sodium (Protonix Susp) 40 mg PO 0600 [facility] Last Admin: 08/16/18 13:29 Dose: 40 mg Potassium Chloride (K-Dur 20 Meq Er Tab) 20 meq PO DAILY [facility] Stop: 08/20/18 10:01 Last Admin: 08/16/18 10:24 Dose: 20 meq Vitamin A (Vitamin A & D Oint Ud Foilpak) 1 ea TOP BID PRN PRN Reason: Dry skin Last Admin: 08/16/18 10:20 Dose: 1 ea Vitamin B Complex/Vit C/Folic Acid (Nephro-Fortino) 1 tab PO 0800 [facility] Last Admin: 08/16/18 10:21 Dose: 1 tab - Labs Labs: 08/16/18 06:17 08/16/18 06:17 PT 12.6 SECONDS (9.7-12.2) H 08/03/18 14:50 INR 1.2 08/03/18 14:50 APTT 26 SECONDS (21-34) D 08/05/18 06:31 - Head Exam Head Exam: ATRAUMATIC - Eye Exam Eye Exam: Normal appearance - ENT Exam ENT Exam: Mucous Membranes Dry - Respiratory Exam Respiratory Exam: NORMAL BREATHING PATTERN - Cardiovascular Exam Cardiovascular Exam: +S1, +S2 - GI/Abdominal Exam GI & Abdominal Exam: Normal Bowel Sounds Assessment and Plan (1) Anemia Assessment & Plan: chronic disease Status: Acute (2) Thrombocytopenia Assessment & Plan: low fibrinogen; resolving DIC HIT w/u negative Status: Acute
[2018-08-17] MEDS: Pantoprazole 40 mg Susp UD PO SCH (05:05)
[2018-08-17] MEDS: metroNIDAZOLE IV 500 mg/100 ml 500 MG/100 ML BAG IVPB SCH ×2 (09:00→17:00)
--- NOTE | 2018-08-17 09:37 | PCM.PYCHPN ---
Psychiatric Progress Note - Psychiatric Progress Note Patient seen today, length of contact: 15 min Patient Chief Complaint: I m doing fine.' Problems Identified/Issues Discussed: Patient seen and evaluated, chart reviewed and discussed with the nurse. Pt appears more organized and less internally preoccupied than before. She remained isolated and withdrawn, and confined to her room. She still believes that she has a microchip placed in her head. She reports improvement in her auditory hallucinations, visual hallucinations, and paranoia. She denies any suicidal ideation and denies any visual hallucinations. Patient is compliant with medications and denies any side effects. Symptoms are improving but pt needs more time to stabilize. Support and psychoeducation given. Per staff she is going to subacute rehab for endocarditis treatment Medication Change: Yes Medical Record Reviewed: Yes Mental Status Examination - Cognitive Function Orientation: Person, Place, Situation, Time Memory: Impaired Attention: WNL Concentration: WNL Association: WNL Fund of Knowledge: Poor - Mood Mood: Anxious - Affect Affect: Broad - Speech Speech: Pressured - Formal Thought Process Formal Thought Process: Paranoia - Suicidal Ideation Suicidal Ideation: No - Homicidal Ideation Homicidal Ideation: No Goal/Treatment Plan - Goal/Treatment Plan Need for Continued Stay: Discharge may exacerbated symptoms, Severe functional impairment Progress Toward Problem(s) and Goals/Treatment Plan: Delirium due to medical condition Supportive therapy haldol hydroxyzine Pt is psychiatrically stable to be discharged to the assisted. - Smoking Cessation Smoking Cessation Initiated: No
[2018-08-17] MEDS: MethylPREDNISolone 40 mg Vial IV SCH ×3 (10:38→21:06)
[2018-08-17] MEDS: Potassium Chloride 20 mEq ER Tab PO SCH (10:39)
[2018-08-17] MEDS: Multivitamin Vitamin B Complex (Nephro-Vite) Tab PO SCH (10:40)
[2018-08-17] MEDS: Saccharomyces Boulardi 250 mg Cap PO SCH ×2 (13:01→17:59)
--- NOTE | 2018-08-17 13:05 | RAD ---
Date of service: 08/17/2018 HISTORY: verify left PICC COMPARISON: 08/10/2018. FINDINGS: LUNGS: No active pulmonary disease. PLEURA: No significant pleural effusion identified, no pneumothorax apparent. CARDIOVASCULAR: No atherosclerotic calcification present No radiographic findings to suggest acute or significant cardiovascular disease. PICC line in satisfactory position OSSEOUS STRUCTURES: No significant abnormalities. VISUALIZED UPPER ABDOMEN: Normal. OTHER FINDINGS: None. IMPRESSION: No active disease. Satisfactory position of recently placed PICC line. The tip is at the cavoatrial junction.
--- NOTE | 2018-08-17 13:14 | CP.PCM.PN ---
Subjective - Date & Time of Evaluation Date of Evaluation: 08/17/18 Time of Evaluation: 12:00 - Subjective Subjective: No complaints. Objective - Vital Signs/Intake and Output Vital Signs (last 24 hours): Temp Pulse Resp BP Pulse Ox 98.2 F 99 H 20 130/72 98 08/16/18 23:10 08/17/18 07:38 08/16/18 23:10 08/17/18 10:39 08/16/18 23:10 Intake and Output: 08/17/18 08/17/18 06:59 18:59 Output Total 350 Balance -350 - Medications Medications: Current Medications Amlodipine Besylate (Norvasc) 10 mg PO DAILY [facility] Last Admin: 08/17/18 10:40 Dose: 10 mg Aspirin (Aspirin Chewable) 81 mg PO DAILY [facility] Last Admin: 08/17/18 10:40 Dose: 81 mg Benztropine Mesylate (Cogentin) 1 mg PO Q6 PRN PRN Reason: Anaphylaxis Diphenhydramine HCl (Benadryl) 25 mg PO Q6 PRN PRN Reason: Agitation Ergocalciferol (Drisdol 50,000 Intl Units Cap) 1 cap PO Q7D [facility] Last Admin: 08/16/18 17:12 Dose: 1 cap Ferrous Gluconate (Fergon) 324 mg PO TID [facility] Last Admin: 08/17/18 13:01 Dose: 324 mg Furosemide (Lasix) 20 mg PO DAILY [facility] Stop: 08/20/18 10:01 Last Admin: 08/17/18 10:39 Dose: 20 mg Haloperidol (Haldol) 5 mg PO Q6 PRN PRN Reason: Agitation Last Admin: 08/10/18 14:22 Dose: 5 mg Haloperidol (Haldol) 5 mg PO BID [facility] Last Admin: 08/17/18 10:40 Dose: 5 mg Metronidazole (Flagyl) 500 mg in 100 mls @ 100 mls/hr IVPB Q8H [facility]; Protocol Last Admin: 08/17/18 09:00 Dose: 100 mls/hr Nafcillin Sodium 2 gm/ Sodium (Chloride) 250 mls @ 250 mls/hr IVPB Q6 [facility]; Protocol Last Admin: 08/17/18 12:56 Dose: 250 mls/hr Methylprednisolone (Solu-Medrol) 10 mg IV Q12H [facility] Last Admin: 08/17/18 10:38 Dose: 10 mg Oxcarbazepine (Trileptal) 150 mg PO BID [facility] Last Admin: 08/17/18 10:41 Dose: 150 mg Pantoprazole Sodium (Protonix Susp) 40 mg PO 0600 [facility] Last Admin: 08/16/18 13:29 Dose: 40 mg Potassium Chloride (K-Dur 20 Meq Er Tab) 20 meq PO DAILY [facility] Stop: 08/20/18 10:01 Last Admin: 08/17/18 10:39 Dose: 20 meq Saccharomyces Boulardii (Florastor) 250 mg PO BID [facility] Last Admin: 08/17/18 13:01 Dose: 250 mg Vitamin A (Vitamin A & D Oint Ud Foilpak) 1 ea TOP BID PRN PRN Reason: Dry skin Last Admin: 08/16/18 10:20 Dose: 1 ea Vitamin B Complex/Vit C/Folic Acid (Nephro-Fortino) 1 tab PO 0800 [facility] Last Admin: 08/17/18 10:40 Dose: 1 tab - Labs Labs: 08/16/18 06:17 08/16/18 06:17 PT 12.6 SECONDS (9.7-12.2) H 08/03/18 14:50 INR 1.2 08/03/18 14:50 APTT 26 SECONDS (21-34) D 08/05/18 06:31 - Head Exam Head Exam: ATRAUMATIC - Eye Exam Eye Exam: Normal appearance - ENT Exam ENT Exam: Mucous Membranes Dry - Respiratory Exam Respiratory Exam: NORMAL BREATHING PATTERN - Cardiovascular Exam Cardiovascular Exam: +S1, +S2 - GI/Abdominal Exam GI & Abdominal Exam: Normal Bowel Sounds Assessment and Plan (1) Anemia Assessment & Plan: chronic disease Status: Acute (2) Thrombocytopenia Assessment & Plan: mild resolving DIC Status: Acute
--- NOTE | 2018-08-17 14:57 | CP.PCM.PN ---
Subjective - Date & Time of Evaluation Date of Evaluation: 08/17/18 Time of Evaluation: 14:57 - Subjective Subjective: Nephrology Consultation Note Assessment: stable Acute Kidney Injury (N17.9) likely due to ATN: improved (work up for GN neg): IMPROVING Hypertensive Chronic Kidney Disease (I12.9) Hypokalemia, hypomagnesemia Chronic Kidney Disease (N18.9) Stage ? with ? mg proteinuria (R80.9) likely due to HTN Anemia (D64.9), Hyperphosphatemia (E83.39) left lung collapse, UTI severe Mitral regurg with infective endocarditis, depression/Anxiety Plan she had 1st session 07/31/18 and last HD on 08/04/18. then pt refused for further dialysis. Now renal function stable with stable/improving cr. continue to monitor her without dialysis Maintain hemodynamics stable. Avoid hypotension. Patient not on ACEI/ARB due to recent ROBIN Monitor Input/Output, daily weights and renal function with basic metabolic panel started Fe, MVI, and weekly Vit D PRBC as needed heme, cardiology following supplement lytes as needed pt refusing all interventions but lacks decisional capacity as per psych. family and palliative care involved. added lasix, KDUR supplements for 1 week d/c mag due to diarrhoea. consider checking for C.diff Dose meds/antibiotics for improved GFR. Avoid fleets enema. Avoid nephrotoxins/NSAIDs/ iodinated contrast (unless needed emergently) Glycemic control Further work up for as per primary team pt stable from renal perspective Thanks for allowing me to participate in care of your patient. Will follow patient with you. Please call if any Qs. had d/w team Dr Heriberto Hernandez Office: [phone] Subjective: Noted events overnight. Patients says feels same. denies CP/SOB. had refused HD or catheter insertion earlier. renal function stable/improved RIAN: IE with severe MR pt absolutely refused Cath or surgical intervention for IE/MR. son also refused. pt lacks decisional capacity as per psych. pt says I just want to get out of here. c/o loose stool Physical Examination: General Appearance: Comfortable, in no acute respiratory distress Vitals reviewed and noted as below Head; Atraumatic, normocephalic ENT: WNL EYES: Pupils are equal, round and reactive to light accommodation. Eye muscles and extraocular movement intact. Sclera is anicteric. Neck; supple no lymphadenopathy, no thyromegaly or bruit Lungs: Normal respiratory rate/effort. Breath sounds b/l improved Heart: normal rate. s1s2 normal. No rub or gallop. SM + at apex/LSB Extremities: trace edema. No varicose veins Neurological: Patient is alert awake oriented x 2 follow commands Skin: Warm and dry. Normal turgor. No rash. Palpitation: Normal elasticity for age Abdomen: Abdomen is soft. Bowel sounds +. There is no abdominal tenderness, no guarding/rigidity no organomegaly Psych: limited insight. MSK: no joint tenderness or swelling. Digits and nails normal, no deformity : kidney or bladder not palpable access: none Labs/imaging reviewed. Past medical history, past surgical history, family history, social history, allergy reviewed and noted as below Family hx: no hx of CKD. Rest non-contributory work up: CXR: left lung collapse Hep B/C neg UA 2+ protein 1+ blood Objective - Vital Signs/Intake and Output Vital Signs (last 24 hours): Temp Pulse Resp BP Pulse Ox 98.2 F 99 H 20 130/72 98 08/16/18 23:10 08/17/18 07:38 08/16/18 23:10 08/17/18 10:39 08/16/18 23:10 Intake and Output: 08/17/18 08/17/18 06:59 18:59 Output Total 350 Balance -350 - Medications Medications: Current Medications Amlodipine Besylate (Norvasc) 10 mg PO DAILY [facility] Last Admin: 08/17/18 10:40 Dose: 10 mg Aspirin (Aspirin Chewable) 81 mg PO DAILY [facility] Last Admin: 08/17/18 10:40 Dose: 81 mg Benztropine Mesylate (Cogentin) 1 mg PO Q6 PRN PRN Reason: Anaphylaxis Diphenhydramine HCl (Benadryl) 25 mg PO Q6 PRN PRN Reason: Agitation Ergocalciferol (Drisdol 50,000 Intl Units Cap) 1 cap PO Q7D [facility] Last Admin: 08/16/18 17:12 Dose: 1 cap Ferrous Gluconate (Fergon) 324 mg PO TID [facility] Last Admin: 08/17/18 13:01 Dose: 324 mg Furosemide (Lasix) 20 mg PO DAILY [facility] Stop: 08/20/18 10:01 Last Admin: 08/17/18 10:39 Dose: 20 mg Haloperidol (Haldol) 5 mg PO Q6 PRN PRN Reason: Agitation Last Admin: 08/10/18 14:22 Dose: 5 mg Haloperidol (Haldol) 5 mg PO BID [facility] Last Admin: 08/17/18 10:40 Dose: 5 mg Metronidazole (Flagyl) 500 mg in 100 mls @ 100 mls/hr IVPB Q8H [facility]; Protocol Last Admin: 08/17/18 09:00 Dose: 100 mls/hr Nafcillin Sodium 2 gm/ Sodium (Chloride) 250 mls @ 250 mls/hr IVPB Q6 [facility]; Protocol Last Admin: 08/17/18 12:56 Dose: 250 mls/hr Methylprednisolone (Solu-Medrol) 10 mg IV Q12H [facility] Last Admin: 08/17/18 10:38 Dose: 10 mg Oxcarbazepine (Trileptal) 150 mg PO BID [facility] Last Admin: 08/17/18 10:41 Dose: 150 mg Pantoprazole Sodium (Protonix Susp) 40 mg PO 0600 [facility] Last Admin: 08/16/18 13:29 Dose: 40 mg Potassium Chloride (K-Dur 20 Meq Er Tab) 20 meq PO DAILY [facility] Stop: 08/20/18 10:01 Last Admin: 08/17/18 10:39 Dose: 20 meq Saccharomyces Boulardii (Florastor) 250 mg PO BID [facility] Last Admin: 08/17/18 13:01 Dose: 250 mg Vitamin A (Vitamin A & D Oint Ud Foilpak) 1 ea TOP BID PRN PRN Reason: Dry skin Last Admin: 08/16/18 10:20 Dose: 1 ea Vitamin B Complex/Vit C/Folic Acid (Nephro-Fortino) 1 tab PO 0800 [facility] Last Admin: 08/17/18 10:40 Dose: 1 tab - Labs Labs: 08/16/18 06:17 08/16/18 06:17 PT 12.6 SECONDS (9.7-12.2) H 08/03/18 14:50 INR 1.2 08/03/18 14:50 APTT 26 SECONDS (21-34) D 08/05/18 06:31
--- NOTE | 2018-08-17 15:24 | PN ---
DATE: 08/16/2018 SUBJECTIVE: The patient is a 62-year-old female. The patient was seen and examined at bedside on 08/16/2018. Discussion done with the patient's staff, social workers, case assembler. Looking comfortable, complaining about diarrhea. No fever. No chills. No headache. No dizziness. No chest pain. No palpitations. The patient is a very poor historian. PHYSICAL EXAMINATION: VITAL SIGNS: Temperature 97.9, pulse 108, respiratory rate 20, blood pressure 150/90, pulse oximetry 100. HEENT: Head normocephalic, atraumatic. Eyes, PERRLA. Extraocular muscles intact. Conjunctivae clear. Nose patent. Mucous membranes moist. NECK: Supple. No carotid bruit, JVD, or thyromegaly. CHEST: Bilaterally symmetrical. HEART: S1 and S2 positive. LUNGS: Clear to auscultation. ABDOMEN: Soft. Bowel sounds positive. No organomegaly. EXTREMITIES: No edema. No cyanosis. NEUROLOGIC: The patient is awake and alert. Moving all four extremities. No focal deficit. MEDICATIONS: Amlodipine, aspirin, Cogentin, Benadryl, Fergon, Lasix, Haldol, nafcillin, Solu-Medrol, Trileptal, Protonix, potassium. LABORATORY DATA: White blood cells 6.9, hemoglobin 9.7, hematocrit 28.6, platelets 126. Sodium 140, potassium 3.4, BUN 34, creatinine 1.6, glucose 105. ASSESSMENT AND PLAN: Ms. Ping Stanton with anemia, leukopenia, hypokalemia, renal insufficiency, has low fibrinogen, resolving disseminated intravascular coagulation. Heparin-induced thrombocytopenia negative as per soda fountain operator. Seen by psychiatrist, breaker up machine operator, soda fountain operator, and activities aide. Infectious Disease on the case, Dr. Grant. Talked to the patient yesterday and today with length of time trying to convince her for peripherally inserted central catheter line. If she will again refuse the peripherally inserted central catheter line, then we will send her to Rehab with peripheral intravenous line. Talked to the patient that admission is getting prolonged. She has made some decision. She is refusing most of the staff. The patient has history of acute kidney injury and hypertensive chronic kidney disease, hypokalemia, left lung collapse, severe mitral regurgitation with infective endocarditis, depression and anxiety. We will continue present treatment, still educating the patient and the patient's family. We will follow. Pina Montiel MD
[2018-08-17 15:36] LABS: HEMOGLOBIN 9.2 g/dL (11.0-16.0); MEAN CELL VOLUME 96.4 fL (81.0-99.0); MEAN CORPUSCULAR HEMOGLOBIN 32.5 pg (27.0-31.0); MEAN CORPUSCULAR HGB CONC 33.7 g/dL (33.0-37.0); MEAN PLATELET VOLUME 10.3 fL (7.2-11.7); RBC 2.82 Mil/uL (3.80-5.20); RED CELL DISTRIBUTION WIDTH 16.4 % (11.5-14.5)
[2018-08-17 16:25] LABS: CALCIUM 7.9 mg/dl (8.6-10.4)
--- NOTE | 2018-08-17 16:48 | CP.PCM.PN ---
Subjective - Date & Time of Evaluation Date of Evaluation: 08/16/18 Time of Evaluation: 17:10 - Subjective Subjective: CONSENT FOR PICC LINE SIGNED WITH PT'S RN (AGUS), PT'S SON, JOANNE MARIE, AND THE PT. PT SEEN BY DR. YOUNG AGAIN THIS AFTERNOON TO REASSESS CAPACITY, AND THE PT IS AAOX3 AND HAS CAPACITY TO MAKE DECISIONS. PT IS REQUESTING THAT JOANNE SIGN THE CONSENT FOR PICC WITH HER. PT AND JOANNE BOTH UNDERSTAND WHY PICC IS NEEDED AND ARE AWARE OF THE NEED FOR IV ABX FOR 6 WEEKS. PT AND SON JOANNE VERBALIZE UNDERSTANDING OF THE COMPLICATIONS OF A PICC WELL AND ARE IN AGREEMENT WITH THE PROCEDURE. I DISCUSSED AT LENGTH WITH PT AND SON JOANNE THE PLAN FOR D/C. AT THIS TIME THEY HAVE AGREED ON HOME INFUSION THERE ARE MULTIPLE SUPPORTIVE FAMILY MEMBERS WHO WILL BE ABLE TO PROVIDE THE ABX TO THE PT. DR. SHEIKHAR AWARE OF THIS WELL. I SPENT APPROX 80 MINUTES WITH THE PT AND FAMILY DISCUSSING THIS PLAN. CM ALSO AWARE. NO FURTHER ORDERS. Objective - Vital Signs/Intake and Output Vital Signs (last 24 hours): Temp Pulse Resp BP Pulse Ox 98.6 F 102 H 20 104/57 L 99 08/17/18 15:15 08/17/18 15:15 08/17/18 15:15 08/17/18 15:15 08/17/18 15:15 Intake and Output: 08/17/18 08/17/18 06:59 18:59 Intake Total 550 Output Total 350 200 Balance -350 350 - Medications Medications: Current Medications Amlodipine Besylate (Norvasc) 10 mg PO DAILY [facility] Last Admin: 08/17/18 10:40 Dose: 10 mg Aspirin (Aspirin Chewable) 81 mg PO DAILY [facility] Last Admin: 08/17/18 10:40 Dose: 81 mg Benztropine Mesylate (Cogentin) 1 mg PO Q6 PRN PRN Reason: Anaphylaxis Diphenhydramine HCl (Benadryl) 25 mg PO Q6 PRN PRN Reason: Agitation Ergocalciferol (Drisdol 50,000 Intl Units Cap) 1 cap PO Q7D [facility] Last Admin: 08/16/18 17:12 Dose: 1 cap Ferrous Gluconate (Fergon) 324 mg PO TID [facility] Last Admin: 08/17/18 13:01 Dose: 324 mg Furosemide (Lasix) 20 mg PO DAILY [facility] Stop: 08/20/18 10:01 Last Admin: 08/17/18 10:39 Dose: 20 mg Haloperidol (Haldol) 5 mg PO Q6 PRN PRN Reason: Agitation Last Admin: 08/10/18 14:22 Dose: 5 mg Haloperidol (Haldol) 5 mg PO BID [facility] Last Admin: 08/17/18 10:40 Dose: 5 mg Metronidazole (Flagyl) 500 mg in 100 mls @ 100 mls/hr IVPB Q8H [facility]; Protocol Last Admin: 08/17/18 09:00 Dose: 100 mls/hr Nafcillin Sodium 2 gm/ Sodium (Chloride) 250 mls @ 250 mls/hr IVPB Q6 [facility]; Protocol Last Admin: 08/17/18 12:56 Dose: 250 mls/hr Potassium Chloride (Potassium Chloride 20 Meq/100 Ml) 20 meq in 100 mls @ 50 mls/hr IVPB Q2 [facility] Stop: 08/17/18 21:59 Methylprednisolone (Solu-Medrol) 10 mg IV Q12H [facility] Last Admin: 08/17/18 10:38 Dose: 10 mg Oxcarbazepine (Trileptal) 150 mg PO BID [facility] Last Admin: 08/17/18 10:41 Dose: 150 mg Pantoprazole Sodium (Protonix Susp) 40 mg PO 0600 [facility] Last Admin: 08/16/18 13:29 Dose: 40 mg Potassium Chloride (K-Dur 20 Meq Er Tab) 20 meq PO DAILY [facility] Stop: 08/20/18 10:01 Last Admin: 08/17/18 10:39 Dose: 20 meq Saccharomyces Boulardii (Florastor) 250 mg PO BID [facility] Last Admin: 08/17/18 13:01 Dose: 250 mg Vitamin A (Vitamin A & D Oint Ud Foilpak) 1 ea TOP BID PRN PRN Reason: Dry skin Last Admin: 08/16/18 10:20 Dose: 1 ea Vitamin B Complex/Vit C/Folic Acid (Nephro-Fortino) 1 tab PO 0800 [facility] Last Admin: 08/17/18 10:40 Dose: 1 tab - Labs Labs: 08/17/18 15:27 08/17/18 15:27 PT 12.6 SECONDS (9.7-12.2) H 08/03/18 14:50 INR 1.2 08/03/18 14:50 APTT 26 SECONDS (21-34) D 08/05/18 06:31
--- NOTE | 2018-08-17 16:51 | CP.PCM.PN ---
Subjective - Date & Time of Evaluation Date of Evaluation: 08/17/18 Time of Evaluation: 16:48 - Subjective Subjective: PT UNDERWENT PICC LINE INSERTION TODAY AND TOLERATED WELL. CM ARRANGED FOR PT TO RECEIVE HOME INFUSION THROUGH [employer]. PT TO BE D/C HOME WITH PICC AND HOME INFUSION TOMORROW, 08/18, AND THE INFUSION COMPANY WILL MEET PT A ND FAMILY AT THE HOME AT APPROX 1800 TOMORROW TO BEGIN PT EDUCATION AND MEDICATION. I SPOKE WITH PT'S OTHER SON BERENICE AND DISCUSSED THIS. I ALSO PROVIDED THE INFORMATION TO JOANNE'S SIGN OTHER, MANUEL, WHO WILL ALSO HELP WITH PT CARE AT HOME. CM PROVIDED WITH RX FOR NAFCILLIN 2GM IV Q6 HOURS X6 WEEKS (STARTED ON 08/14 AND LAST DOSE WILL BE GIVEN ON 09/25); WEEKLY LABS PER DR. AMBROSIO (CBC, CMP, ESR. AND CRP). PT AWARE OF D/C PLAN. NO FURTHER ORDERS AT THIS TIME. Objective - Vital Signs/Intake and Output Vital Signs (last 24 hours): Temp Pulse Resp BP Pulse Ox 98.6 F 102 H 20 104/57 L 99 08/17/18 15:15 08/17/18 15:15 08/17/18 15:15 08/17/18 15:15 08/17/18 15:15 Intake and Output: 08/17/18 08/17/18 06:59 18:59 Intake Total 550 Output Total 350 200 Balance -350 350 - Medications Medications: Current Medications Amlodipine Besylate (Norvasc) 10 mg PO DAILY [facility] Last Admin: 08/17/18 10:40 Dose: 10 mg Aspirin (Aspirin Chewable) 81 mg PO DAILY [facility] Last Admin: 08/17/18 10:40 Dose: 81 mg Benztropine Mesylate (Cogentin) 1 mg PO Q6 PRN PRN Reason: Anaphylaxis Diphenhydramine HCl (Benadryl) 25 mg PO Q6 PRN PRN Reason: Agitation Ergocalciferol (Drisdol 50,000 Intl Units Cap) 1 cap PO Q7D [facility] Last Admin: 08/16/18 17:12 Dose: 1 cap Ferrous Gluconate (Fergon) 324 mg PO TID [facility] Last Admin: 08/17/18 13:01 Dose: 324 mg Furosemide (Lasix) 20 mg PO DAILY [facility] Stop: 08/20/18 10:01 Last Admin: 08/17/18 10:39 Dose: 20 mg Haloperidol (Haldol) 5 mg PO Q6 PRN PRN Reason: Agitation Last Admin: 08/10/18 14:22 Dose: 5 mg Haloperidol (Haldol) 5 mg PO BID [facility] Last Admin: 08/17/18 10:40 Dose: 5 mg Metronidazole (Flagyl) 500 mg in 100 mls @ 100 mls/hr IVPB Q8H [facility]; Protocol Last Admin: 08/17/18 09:00 Dose: 100 mls/hr Nafcillin Sodium 2 gm/ Sodium (Chloride) 250 mls @ 250 mls/hr IVPB Q6 [facility]; Pr otocol Last Admin: 08/17/18 12:56 Dose: 250 mls/hr Potassium Chloride (Potassium Chloride 20 Meq/100 Ml) 20 meq in 100 mls @ 50 mls/hr IVPB Q2 [facility] Stop: 08/17/18 21:59 Methylprednisolone (Solu-Medrol) 10 mg IV Q12H [facility] Last Admin: 08/17/18 10:38 Dose: 10 mg Oxcarbazepine (Trileptal) 150 mg PO BID [facility] Last Admin: 08/17/18 10:41 Dose: 150 mg Pantoprazole Sodium (Protonix Susp) 40 mg PO 0600 [facility] Last Admin: 08/16/18 13:29 Dose: 40 mg Potassium Chloride (K-Dur 20 Meq Er Tab) 20 meq PO DAILY [facility] Stop: 08/20/18 10:01 Last Admin: 08/17/18 10:39 Dose: 20 meq Saccharomyces Boulardii (Florastor) 250 mg PO BID [facility] Last Admin: 08/17/18 13:01 Dose: 250 mg Vitamin A (Vitamin A & D Oint Ud Foilpak) 1 ea TOP BID PRN PRN Reason: Dry skin Last Admin: 08/16/18 10:20 Dose: 1 ea Vitamin B Complex/Vit C/Folic Acid (Nephro-Fortino) 1 tab PO 0800 [facility] Last Admin: 08/17/18 10:40 Dose: 1 tab - Labs Labs: 08/17/18 15:27 08/17/18 15:27 PT 12.6 SECONDS (9.7-12.2) H 08/03/18 14:50 INR 1.2 08/03/18 14:50 APTT 26 SECONDS (21-34) D 08/05/18 06:31
--- NOTE | 2018-08-17 18:13 | CP.PCM.PN ---
Subjective - Date & Time of Evaluation Date of Evaluation: 08/17/18 Time of Evaluation: 08:00 - Subjective Subjective: improving 'for out pt rx Objective - Vital Signs/Intake and Output Vital Signs (last 24 hours): Temp Pulse Resp BP Pulse Ox 98.6 F 102 H 20 104/57 L 99 08/17/18 15:15 08/17/18 15:15 08/17/18 15:15 08/17/18 15:15 08/17/18 15:15 Intake and Output: 08/17/18 08/17/18 06:59 18:59 Intake Total 550 Output Total 350 200 Balance -350 350 - Medications Medications: Current Medications Amlodipine Besylate (Norvasc) 10 mg PO DAILY [facility] Last Admin: 08/17/18 10:40 Dose: 10 mg Aspirin (Aspirin Chewable) 81 mg PO DAILY [facility] Last Admin: 08/17/18 10:40 Dose: 81 mg Benztropine Mesylate (Cogentin) 1 mg PO Q6 PRN PRN Reason: Anaphylaxis Diphenhydramine HCl (Benadryl) 25 mg PO Q6 PRN PRN Reason: Agitation Ergocalciferol (Drisdol 50,000 Intl Units Cap) 1 cap PO Q7D [facility] Last Admin: 08/16/18 17:12 Dose: 1 cap Ferrous Gluconate (Fergon) 324 mg PO TID [facility] Last Admin: 08/17/18 17:59 Dose: 324 mg Furosemide (Lasix) 20 mg PO DAILY [facility] Stop: 08/20/18 10:01 Last Admin: 08/17/18 10:39 Dose: 20 mg Haloperidol (Haldol) 5 mg PO Q6 PRN PRN Reason: Agitation Last Admin: 08/10/18 14:22 Dose: 5 mg Haloperidol (Haldol) 5 mg PO BID [facility] Last Admin: 08/17/18 18:00 Dose: 5 mg Metronidazole (Flagyl) 500 mg in 100 mls @ 100 mls/hr IVPB Q8H [facility]; Protocol Last Admin: 08/17/18 17:00 Dose: 100 mls/hr Nafcillin Sodium 2 gm/ Sodium (Chloride) 250 mls @ 250 mls/hr IVPB Q6 [facility]; Protocol Last Admin: 08/17/18 17:59 Dose: 250 mls/hr Potassium Chloride (Potassium Chloride 20 Meq/100 Ml) 20 meq in 100 mls @ 50 mls/hr IVPB Q2 [facility] Stop: 08/17/18 21:59 Methylprednisolone (Solu-Medrol) 10 mg IV Q12H [facility] Last Admin: 08/17/18 10:38 Dose: 10 mg Oxcarbazepine (Trileptal) 150 mg PO BID [facility] Last Admin: 08/17/18 18:04 Dose: 150 mg Pantoprazole Sodium (Protonix Susp) 40 mg PO 0600 [facility] Last Admin: 08/16/18 13:29 Dose: 40 mg Potassium Chloride (K-Dur 20 Meq Er Tab) 20 meq PO DAILY [facility] Stop: 08/20/18 10:01 Last Admin: 08/17/18 10:39 Dose: 20 meq Saccharomyces Boulardii (Florastor) 250 mg PO BID [facility] Last Admin: 08/17/18 17:59 Dose: 250 mg Vitamin A (Vitamin A & D Oint Ud Foilpak) 1 ea TOP BID PRN PRN Reason: Dry skin Last Admin: 08/16/18 10:20 Dose: 1 ea Vitamin B Complex/Vit C/Folic Acid (Nephro-Fortino) 1 tab PO 0800 [facility] Last Admin: 08/17/18 10:40 Dose: 1 tab - Labs Labs: 08/17/18 15:27 08/17/18 15:27 PT 12.6 SECONDS (9.7-12.2) H 08/03/18 14:50 INR 1.2 08/03/18 14:50 APTT 26 SECONDS (21-34) D 08/05/18 06:31 - Constitutional Appears: Well - Head Exam Head Exam: ATRAUMATIC, NORMAL INSPECTION, NORMOCEPHALIC - Eye Exam Eye Exam: EOMI, Normal appearance, PERRL Pupil Exam: NORMAL ACCOMODATION, PERRL - ENT Exam ENT Exam: Mucous Membranes Moist, Normal Exam - Neck Exam Neck Exam: Full ROM, Normal Inspection. absent: Lymphadenopathy - Respiratory Exam Respiratory Exam: Clear to Ausculation Bilateral, NORMAL BREATHING PATTERN - Cardiovascular Exam Cardiovascular Exam: REGULAR RHYTHM, +S1, +S2. absent: Murmur - GI/Abdominal Exam GI & Abdominal Exam: Soft, Normal Bowel Sounds. absent: Tenderness - Rectal Exam Rectal Exam: NORMAL INSPECTION - Extremities Exam Extremities Exam: Full ROM, Normal Capillary Refill, Normal Inspection. absent: Joint Swelling, Pedal Edema - Back Exam Back Exam: NORMAL INSPECTION - Neurological Exam Neurological Exam: Alert, Awake, CN II-XII Intact, Normal Gait, Oriented x3 - Psychiatric Exam Psychiatric exam: Normal Affect, Normal Mood - Skin Skin Exam: Dry, Intact, Normal Color, Warm Assessment and Plan (1) Acute kidney injury Status: Acute (2) Closed fracture of right proximal humerus Status: Acute (3) Metabolic acidosis Status: Acute (4) Respiratory failure Status: Acute (5) Rhabdomyolysis Status: Acute (6) Endocarditis of mitral valve Status: Acute (7) Vegetative endocarditis of mitral valve Status: Acute (8) MSSA (methicillin susceptible Staphylococcus aureus) septicemia Status: Acute
[2018-08-18] MEDS: metroNIDAZOLE IV 500 mg/100 ml 500 MG/100 ML BAG IVPB SCH ×2 (00:01→09:05)
[2018-08-18] MEDS ORDERED: Potassium Chloride 20 mEq ER Tab PO STA (00:06)
--- NOTE | 2018-08-18 04:45 | PN ---
DATE: 08/17/2018 SUBJECTIVE: The patient was seen and examined at the bedside on 08/17/2018, looking comfortable. No fever. No chills. No headache. No dizziness. No chest pain or palpitation. Improving, but very slowly. PHYSICAL EXAMINATION: VITAL SIGNS: Temperature 98.6, pulse 102, respiratory rate 20, blood pressure 104/57, pulse oximetry 99%. HEENT: Head normocephalic, atraumatic. Eyes, PERRLA. Extraocular muscles intact. Conjunctivae clear. Nose patent. Mucous membranes moist. NECK: Supple. No carotid bruit, JVD, or thyromegaly. CHEST: Bilaterally symmetrical. HEART: S1 and S2 positive. LUNGS: Clear to auscultation. ABDOMEN: Soft. Bowel sounds positive. No organomegaly. EXTREMITIES: No edema. No cyanosis. NEUROLOGIC: The patient is awake and alert. Follows simple commands. MEDICATIONS: Norvasc, aspirin, Cogentin, Benadryl, vitamin D, iron, Haldol, Solu-Medrol, Trileptal, pantoprazole, vitamins. LABORATORY DATA: White blood cells 9.9, hemoglobin 9.2, hematocrit 27.2, platelets 122,000. Sodium 140, potassium 3.1, BUN 27, creatinine 1.2, glucose 125. ASSESSMENT AND PLAN: Ms. Romy Feng is a 62-year-old lady with anemia; thrombocytopenia; hypokalemia; renal insufficiency; hyperglycemia; had acute kidney injury, improved; closed fracture of the right proximal humerus, do not want surgery; metabolic acidosis; history of respiratory failure abnormalities; endocarditis of mitral valve, refused surgery, getting antibiotic, vegetation contracted to the mitral valve, methicillin susceptible Staphylococcus aureus septicemia. Plan is to give IV antibiotics, put PICC line. Infectious Disease is on the case. Continue antibiotics as per Infectious Disease. arrangement with the home care company providing the home care ,off the antibiotics for the next three weeks. Their main number was given to the patient. GI and DVT prophylaxis. Repeat labs. We will follow up. Pina Montiel MD [facility] # [id number] MTDD
[2018-08-18] MEDS: Pantoprazole 40 mg Susp UD PO SCH (05:16)
[2018-08-18 08:38] VITALS: BP 127/76; TEMP 97.1; O2SAT 98
[2018-08-18] MEDS: Potassium Chloride 20 mEq ER Tab PO SCH (10:04)
[2018-08-18] MEDS: Multivitamin Vitamin B Complex (Nephro-Vite) Tab PO SCH (10:05)
[2018-08-18] MEDS: Saccharomyces Boulardi 250 mg Cap PO SCH (10:06)
[2018-08-18] MEDS: MethylPREDNISolone 40 mg Vial IV SCH (10:08)
--- NOTE | 2018-08-18 11:34 | CP.PCM.PN ---
Subjective - Date & Time of Evaluation Date of Evaluation: 08/18/18 Time of Evaluation: 11:33 - Subjective Subjective: Nephrology Consultation Note Assessment: stable Acute Kidney Injury (N17.9) likely due to ATN: improved (work up for GN neg): IMPROVING Hypertensive Chronic Kidney Disease (I12.9) Hypokalemia, hypomagnesemia Chronic Kidney Disease (N18.9) Stage ? with ? mg proteinuria (R80.9) likely due to HTN Anemia (D64.9), Hyperphosphatemia (E83.39) left lung collapse, UTI severe Mitral regurg with infective endocarditis, depression/Anxiety Plan she had 1st session 07/31/18 and last HD on 08/04/18. then pt refused for further dialysis. Now renal function stable with stable/improving cr. continue to monitor her without dialysis Maintain hemodynamics stable. Avoid hypotension. Patient not on ACEI/ARB due to recent ROBIN Monitor Input/Output, daily weights and renal function with basic metabolic panel started Fe, MVI, and weekly Vit D PRBC as needed heme, cardiology following supplement lytes as needed pt refusing all interventions but lacks decisional capacity as per psych. family and palliative care involved. added lasix, KDUR supplements for 1 week d/c mag due to diarrhoea. neg for C.diff Dose meds/antibiotics for improved GFR. Avoid fleets enema. Avoid nephrotoxins/NSAIDs/ iodinated contrast (unless needed emergently) Glycemic control Further work up for as per primary team pt stable from renal perspective Thanks for allowing me to participate in care of your patient. Will follow patient with you. Please call if any Qs. had d/w team Dr Heriberto Hernandez Office: [phone] Subjective: Noted events overnight. Patients says feels same. denies CP/SOB. had refused HD or catheter insertion earlier. renal function stable/improved RIAN: IE with severe MR pt absolutely refused Cath or surgical intervention for IE/MR. son also refused. pt lacks decisional capacity as per psych. pt says I just want to get out of here. loose stool improved Physical Examination: General Appearance: Comfortable, in no acute respiratory distress Vitals reviewed and noted as below Head; Atraumatic, normocephalic ENT: WNL EYES: Pupils are equal, round and reactive to light accommodation. Eye muscles and extraocular movement intact. Sclera is anicteric. Neck; supple no lymphadenopathy, no thyromegaly or bruit Lungs: Normal respiratory rate/effort. Breath sounds b/l improved Heart: normal rate. s1s2 normal. No rub or gallop. SM + at apex/LSB Extremities: trace edema. No varicose veins Neurological: Patient is alert awake oriented x 2 follow commands Skin: Warm and dry. Normal turgor. No rash. Palpitation: Normal elasticity for age Abdomen: Abdomen is soft. Bowel sounds +. There is no abdominal tenderness, no guarding/rigidity no organomegaly Psych: limited insight. MSK: no joint tenderness or swelling. Digits and nails normal, no deformity : kidney or bladder not palpable access: none Labs/imaging reviewed. Past medical history, past surgical history, family history, social history, allergy reviewed and noted as below Family hx: no hx of CKD. Rest non-contributory work up: CXR: left lung collapse Hep B/C neg UA 2+ protein 1+ blood Objective - Vital Signs/Intake and Output Vital Signs (last 24 hours): Temp Pulse Resp BP Pulse Ox 97.1 F L 103 H 20 127/76 98 08/18/18 08:37 08/18/18 08:37 08/18/18 08:37 08/18/18 10:05 08/18/18 08:37 Intake and Output: 08/18/18 08/18/18 06:59 18:59 Intake Total 200 Output Total 450 Balance -250 - Medications Medications: Current Medications Amlodipine Besylate (Norvasc) 10 mg PO DAILY [facility] Last Admin: 08/18/18 10:05 Dose: 10 mg Aspirin (Aspirin Chewable) 81 mg PO DAILY [facility] Last Admin: 08/18/18 10:06 Dose: 81 mg Benztropine Mesylate (Cogentin) 1 mg PO Q6 PRN PRN Reason: Anaphylaxis Diphenhydramine HCl (Benadryl) 25 mg PO Q6 PRN PRN Reason: Agitation Ergocalciferol (Drisdol 50,000 Intl Units Cap) 1 cap PO Q7D [facility] Last Admin: 08/16/18 17:12 Dose: 1 cap Ferrous Gluconate (Fergon) 324 mg PO TID [facility] Last Admin: 08/18/18 10:04 Dose: 324 mg Furosemide (Lasix) 20 mg PO DAILY [facility] Stop: 08/20/18 10:01 Last Admin: 08/18/18 10:05 Dose: 20 mg Haloperidol (Haldol) 5 mg PO Q6 PRN PRN Reason: Agitation Last Admin: 08/10/18 14:22 Dose: 5 mg Haloperidol (Haldol) 5 mg PO BID [facility] Last Admin: 08/18/18 10:05 Dose: 5 mg Metronidazole (Flagyl) 500 mg in 100 mls @ 100 mls/hr IVPB Q8H [facility]; Protocol Last Admin: 08/18/18 09:05 Dose: 100 mls/hr Nafcillin Sodium 2 gm/ Sodium (Chloride) 250 mls @ 250 mls/hr IVPB Q6 [facility]; Protocol Last Admin: 08/18/18 05:16 Dose: 250 mls/hr Methylprednisolone (Solu-Medrol) 10 mg IV Q12H [facility] Last Admin: 08/18/18 10:08 Dose: 10 mg Oxcarbazepine (Trileptal) 150 mg PO BID [facility] Last Admin: 08/18/18 10:06 Dose: 150 mg Pantoprazole Sodium (Protonix Susp) 40 mg PO 0600 [facility] Last Admin: 08/18/18 05:16 Dose: 40 mg Potassium Chloride (K-Dur 20 Meq Er Tab) 20 meq PO DAILY [facility] Stop: 08/20/18 10:01 Last Admin: 08/18/18 10:04 Dose: 20 meq Saccharomyces Boulardii (Florastor) 250 mg PO BID [facility] Last Admin: 08/18/18 10:06 Dose: 250 mg Vitamin A (Vitamin A & D Oint Ud Foilpak) 1 ea TOP BID PRN PRN Reason: Dry skin Last Admin: 08/16/18 10:20 Dose: 1 ea Vitamin B Complex/Vit C/Folic Acid (Nephro-Fortino) 1 tab PO 0800 [facility] Last Admin: 08/18/18 10:05 Dose: 1 tab - Labs Labs: 08/17/18 15:27 08/17/18 15:27 PT 12.6 SECONDS (9.7-12.2) H 08/03/18 14:50 INR 1.2 08/03/18 14:50 APTT 26 SECONDS (21-34) D 08/05/18 06:31
[2018-08-18 13:06] VITALS: PULSE 99
--- NOTE | 2018-08-18 20:42 | CP.PCM.PN ---
Subjective - Date & Time of Evaluation Date of Evaluation: 08/18/18 Time of Evaluation: 12:00 - Subjective Subjective: No complaints. Objective - Vital Signs/Intake and Output Vital Signs (last 24 hours): Temp Pulse Resp BP Pulse Ox 97.1 F L 99 H 20 127/76 98 08/18/18 08:37 08/18/18 10:00 08/18/18 08:37 08/18/18 10:05 08/18/18 08:37 - Labs Labs: 08/17/18 15:27 08/17/18 15:27 PT 12.6 SECONDS (9.7-12.2) H 08/03/18 14:50 INR 1.2 08/03/18 14:50 APTT 26 SECONDS (21-34) D 08/05/18 06:31 - Head Exam Head Exam: ATRAUMATIC - Eye Exam Eye Exam: Normal appearance - ENT Exam ENT Exam: Mucous Membranes Dry - Respiratory Exam Respiratory Exam: NORMAL BREATHING PATTERN - Cardiovascular Exam Cardiovascular Exam: +S1, +S2 - GI/Abdominal Exam GI & Abdominal Exam: Normal Bowel Sounds - Extremities Exam Extremities Exam: Normal Inspection Assessment and Plan (1) Anemia Assessment & Plan: chronic disease and CKD resolved DIC Status: Acute (2) Thrombocytopenia Assessment & Plan: resolved DIC Status: Acute
--- NOTE | 2018-08-28 23:36 | DS ---
The patient is a 62-year-old female. The patient was admitted on 07/31/2018, discharged on 08/18/2018. The patient was seen and examined at bedside on 08/18/2018, and I am doing discharge summary for 08/18/2018. CHIEF COMPLAINT: Altered mental status. HISTORY OF PRESENT ILLNESS: Ms. Romy Feng is a 62-year-old lady with history of hypertension, hypercholesterolemia and depression, is brought to the ED by EMS for altered mental status and she has three sons. As per one of the sons, the patient was drowsy all the day on the day of admission and he called EMS but refused to come to the hospital; however son states the patient's condition worsened and she was not answering any questions. EMS was called again. Upon EMS arrival, the patient found to have unresponsive . The patient was intubated in the field. ET tube was put. When I saw the patient in the unit, the patient was intubated. Had altered mental status. PAST MEDICAL HISTORY: Depression, hypertension, hypercholesterolemia. FAMILY HISTORY: Father and mother, noncontributory. HABITS: No smoking. No drug. No ethanol. REVIEW OF SYSTEMS: The patient was seen and examined at the bedside, looking comfortable. No fever, no chills. No nausea, vomiting or diarrhea. No hematuria. No hematochezia. No headache. No dizziness. No chest pain. No palpitation. PHYSICAL EXAMINATION: VITAL SIGNS: Temperature 97.1, pulse 99, blood pressure 127/76, and respiratory rate 20. HEENT: Head normocephalic, atraumatic. Eyes, PERRLA. Extraocular movements intact. Conjunctivae clear. Nose patent. Mucous membranes moist. NECK: Supple. No carotid bruits, JVD, or thyromegaly. CHEST: Bilaterally symmetrical. HEART: S1 and S2 positive. LUNGS: Clear to auscultation. ABDOMEN: Soft. Bowel sounds are present. No organomegaly. EXTREMITIES: No edema and no cyanosis. NEUROLOGIC: The patient is awake and alert. Moving all four extremities. No focal deficits. LABORATORY DATA: White blood cells 9, hemoglobin 9.2, hematocrit 27.2, platelets 122. Sodium 140, potassium 3.1, BUN 27, creatinine 1.4, glucose 125, calcium 7.1. ASSESSMENT AND PLAN: Ms. Romy Feng is a 62-year-old female with anemia, thrombocytopenia, hypokalemia, hyperchloremia, renal insufficiency. Actually on admission, the patient has acute on chronic renal insufficiency. Nephrology consult called. One dialysis given. Plan was to give a couple of more dialysis but the patient and family refused dialysis. With hydration, the patient improved. Uncontrolled diabetes mellitus. Electrolyte imbalance. balancing electrolytes; proteinuria, hematuria, urinary tract infection, sepsis. Infectious Disease was on the case. We did CAT scan of the head. Chest x-rays. Humerus x-rays has fracture of the humerus. It looks like old fracture. Dr. Louis , the baker helper, saw the patient. Dr. Elaine Becker was called for the patient's fracture. We called Dr. Casanova's consult to put fistula, the patient refused. There was time, the patient was not able to make decision. We called Psych consult. They rendered that the patient is not competent to make decision, and she was receiving most of her treatments. Catheterization was done showed that the patient has endocarditis. Dr. Terrazas was planning to do surgery. The patient refused. The patient's family was contacted. Even the family refused. Then Dr. Grant decided to give antibiotics for one month. The patient was refusing PICC line. Length of time, discussion was done. Then agreed. Home infusion arrangement done. The patient has anemia chronic disease and chronic kidney disease. Resolved disseminated intravascular coagulation. Metabolic acidosis, history of respiratory failure, was intubated. Endocarditis of mitral valve. Methicillin sensitive to Staphylococcus aureus septicemia. Home antibiotic limit was done. Plan was to take the patient to subacute rehabilitation. The patient and patient's family refused and the family knows that the patient is refusing, urged to be compliant. Discharge home. Home antibiotic infusion is done. Actually the patient was discharged home. Follow up with Infection Disease, Neurology, psychiatrist, Orthopedic, and baker helper, telemetry registered nurse. Prescription of the medications given. Repeat labs. We will follow up. Pina Montiel MD SARA
== END 2018-08-18 17:02 | disposition home health service (06) | DRG 208 ==
LOC: C.ER 15:16 → C.9I 17:11 → UNDODISIN 08-09 17:30 → C.6T 08-10 22:41
PROVIDERS: ADMIT Internal Medicine; ATTEND Internal Medicine
PROC: 5A1945Z Respiratory Ventilation, 24-96 Consecutive Hours (ICD-10-PCS; principal; 2018-07-31)
PROC: 5A1D70Z Performance of Urinary Filtration, Intermittent, Less than 6 Hours Per Day (ICD-10-PCS; 2018-07-31)
PROC: 04HK33Z Insertion of Infusion Device into Right Femoral Artery, Percutaneous Approach (ICD-10-PCS; 2018-07-31)
PROC: 5A1D70Z Performance of Urinary Filtration, Intermittent, Less than 6 Hours Per Day (ICD-10-PCS; 2018-08-02)
PROC: 5A1D70Z Performance of Urinary Filtration, Intermittent, Less than 6 Hours Per Day (ICD-10-PCS; 2018-08-04)
PROC: B246ZZ4 Ultrasonography of Right and Left Heart, Transesophageal (ICD-10-PCS; 2018-08-10)
PROC: 02HV33Z Insertion of Infusion Device into Superior Vena Cava, Percutaneous Approach (ICD-10-PCS; 2018-08-17)
DX: J96.01 Acute respiratory failure with hypoxia (principal); N17.0 Acute kidney failure with tubular necrosis; A41.01 Sepsis due to Methicillin susceptible Staphylococcus aureus; I33.0 Acute and subacute infective endocarditis; J18.1 Lobar pneumonia, unspecified organism; D65 Disseminated intravascular coagulation [defibrination syndrome]; R65.21 Severe sepsis with septic shock; R40.20 Unspecified coma; N18.6 End stage renal disease; I50.32 Chronic diastolic (congestive) heart failure; S42.201A Unspecified fracture of upper end of right humerus, initial encounter for closed fracture; J44.0 Chronic obstructive pulmonary disease with (acute) lower respiratory infection; J98.19 Other pulmonary collapse; E87.4 Mixed disorder of acid-base balance; F05 Delirium due to known physiological condition; I13.2 Hypertensive heart and chronic kidney disease with heart failure and with stage 5 chronic kidney disease, or end stage renal disease; L02.214 Cutaneous abscess of groin; M62.82 Rhabdomyolysis; N39.0 Urinary tract infection, site not specified; N76.4 Abscess of vulva; J98.11 Atelectasis; I25.10 Atherosclerotic heart disease of native coronary artery without angina pectoris; B96.20 Unspecified Escherichia coli [E. coli] as the cause of diseases classified elsewhere; D63.1 Anemia in chronic kidney disease; E11.22 Type 2 diabetes mellitus with diabetic chronic kidney disease; E86.0 Dehydration; E11.65 Type 2 diabetes mellitus with hyperglycemia; E87.6 Hypokalemia; E83.39 Other disorders of phosphorus metabolism; E83.42 Hypomagnesemia; E83.51 Hypocalcemia; F32.9 Major depressive disorder, single episode, unspecified; E87.5 Hyperkalemia; I08.0 Rheumatic disorders of both mitral and aortic valves; E87.8 Other disorders of electrolyte and fluid balance, not elsewhere classified; R94.5 Abnormal results of liver function studies; E88.09 Other disorders of plasma-protein metabolism, not elsewhere classified; D50.9 Iron deficiency anemia, unspecified; E78.00 Pure hypercholesterolemia, unspecified; E78.5 Hyperlipidemia, unspecified; E78.1 Pure hyperglyceridemia; R31.9 Hematuria, unspecified; Z16.12 Extended spectrum beta lactamase (ESBL) resistance; Z53.29 Procedure and treatment not carried out because of patient's decision for other reasons; R56.9 Unspecified convulsions; K27.9 Peptic ulcer, site unspecified, unspecified as acute or chronic, without hemorrhage or perforation; Z66 Do not resuscitate; Z91.19 Patient's noncompliance with other medical treatment and regimen; K11.7 Disturbances of salivary secretion; Z87.440 Personal history of urinary (tract) infections; Z87.891 Personal history of nicotine dependence; I25.2 Old myocardial infarction

== ENCOUNTER 2018-08-31 10:23 | Inpatient (IN) | payer MEDICARE, MEDICAID ==
--- NOTE | 2018-08-31 11:21 | C.PDOC ---
History Of Present Illness 62-year-old female, PMHx includes renal insufficiency, hypertnesion, hyperlipidemia, depression, recent admission for suspected endocarditis, presents to the emergency department with complaints of generalized weakness x4 days. Patient denies fever, or any other associated symptoms. No other complaints at this time. Time Seen by Provider: 08/31/18 10:37 Chief Complaint (Nursing): Weakness/Neurological Deficit History Per: Patient History/Exam Limitations: no limitations Past Medical History Reviewed: Historical Data, Nursing Documentation, Vital Signs Vital Signs: Last Vital Signs Temp 97.6 F 08/31/18 10:34 Pulse 110 H 08/31/18 10:34 Resp 20 08/31/18 10:34 BP 97/54 L 08/31/18 10:34 Pulse Ox 99 08/31/18 10:34 - Medical History PMH: Depression, HTN, Hypercholesterolemia, Hyperlipidemia - [facility] Procedures (07/31/18) INSERTION OF INFUSION DEV INTO SUP VENA CAVA, PERC APPROACH (07/31/18) INSERTION OF INFUSION DEVICE INTO R FEM ART, PERC APPROACH (07/31/18) RESPIRATORY VENTILATION, 24-96 CONSECUTIVE HOURS (07/31/18) ULTRASONOGRAPHY OF RIGHT AND LEFT HEART, TRANSESOPHAGEAL (07/31/18) Family History: States: No Known Family Hx - Social History Hx Alcohol Use: No (unknown) Hx Substance Use: No (unknown) Review Of Systems Constitutional: Negative for: Fever Cardiovascular: Negative for: Chest Pain Respiratory: Negative for: Shortness of Breath Gastrointestinal: Negative for: Nausea, Vomiting Neurological: Positive for: Weakness. Negative for: Headache, Dizziness Physical Exam - Physical Exam Appears: Non-toxic, No Acute Distress Skin: Warm, Dry, No Rash, Ecchymosis (neck and extremities) Head: Atraumatic, Normacephalic Eye(s): bilateral: Normal Inspection Nose: Normal Oral Mucosa: Moist Lips: Normal Appearing Neck: Normal ROM Chest: Symmetrical Cardiovascular: Rhythm Regular (tachycardic), Murmur (systolic ejection ) Respiratory: Normal Breath Sounds, No Accessory Muscle Use Gastrointestinal/Abdominal: Soft, No Tenderness Neurological/Psych: Oriented x3 ED Course And Treatment - Laboratory Results Result Diagrams: 08/31/18 11:08 08/31/18 12:45 ECG: Interpreted By Me, Viewed By Me ECG Rhythm: Sinus Tachycardia ECG Interpretation: No Acute Changes Rate From EC O2 Sat by Pulse Oximetry: 99 Medical Decision Making Medical Decision Making: ho of endocaritis on antibiotics/hof renal failure- consider metabolic infectious cardiac, abdomianl eitoloyg- labs florence hernandez noted k. repeated in case lab error. mag added. empiric antibiotics intiated in case sepsis given leukocytosis increasing. case discussed wtihdr rodríguez. accepts. accepted by icu. pt took asa today. lovenox held as suspected type 2. Disposition - Disposition Disposition: HOSPITALIZED Disposition Time: 15:00 Condition: STABLE - Clinical Impression Clinical Impression: Acute renal failure on dialysis, Hypokalemia, Hypocalcemia, Leukocytosis - Scribe Statement The provider has reviewed the documentation as recorded by the Scribe (Rush Becker) Provider Attestation: All medical record entries made by the Scribe were at my direction and personally dictated by me. I have reviewed the chart and agree that the record accurately reflects my personal performance of the history, physical exam, medical decision making, and the department course for this patient. I have also personally directed, reviewed, and agree with the discharge instructions and disposition.
[2018-08-31 11:22] LABS: BASO # 0.1 K/uL (0.0-0.2); BASO % 0.6 % (0.0-2.0); EOS # 0.1 K/uL (0.0-0.7); EOS % 0.6 % (0.0-4.0); HEMOGLOBIN 8.8 g/dL (11.0-16.0); LYMPH # 0.9 K/uL (1.0-4.3); LYMPH % 6.7 % (20.0-40.0); MEAN CELL VOLUME 87.9 fL (81.0-99.0); MEAN CORPUSCULAR HEMOGLOBIN 31.6 pg (27.0-31.0); MEAN CORPUSCULAR HGB CONC 35.9 g/dL (33.0-37.0); MEAN PLATELET VOLUME 8.5 fL (7.2-11.7); MONO # 0.6 K/uL (0.0-0.8); MONO % 4.2 % (0.0-10.0); NEUT # 12.3 K/uL (1.8-7.0); NEUT % 87.9 % (50.0-75.0); NRBC % 0.1 % (0.0-2.0); PLATELET COUNT 306 K/uL (130-400); RBC 2.77 Mil/uL (3.80-5.20); RED CELL DISTRIBUTION WIDTH 15.5 % (11.5-14.5)
[2018-08-31] MEDS ORDERED: Piperacillin/Tazobact 3.375 gm 100 ML IVPB STA (11:25)
[2018-08-31] MEDS ORDERED: Vancomycin 1 GM 1 GM/250 ML BAG IVPB ONE (11:36)
[2018-08-31] MEDS ORDERED: Piperacillin/Tazobact 3.375 gm 100 ML IVPB ONE (11:36)
[2018-08-31 11:47] LABS: EOSINOPHIL 2 % (0-4); LYMPHOCYTE 5 % (20-40); MONOCYTE 3 % (0-10); NEUTROPHIL 90 % (50-75); PLATELET ESTIMATE NORMAL (NORMAL); TOTAL CELLS COUNTED 100
[2018-08-31 11:48] LABS: ANISOCYTOSIS SLIGHT; BURR CELLS MODERATE; HYPOCHROMIC SLIGHT; POLYCHROMIC SLIGHT
[2018-08-31 11:49] LABS: OVALOCYTES SLIGHT
[2018-08-31 12:23] LABS: ALB/GLOB RATIO 0.7 (1.0-2.1); CALCIUM 5.9 mg/dl (8.6-10.4); TROPONIN I 0.181 ng/mL (0.00-0.120)
--- NOTE | 2018-08-31 12:24 | RAD ---
HISTORY: chest pain COMPARISON: Chest x-ray performed 08/17/18 TECHNIQUE: Chest, one view. FINDINGS: Examination limited by habitus. Right-sided PICC appears to terminate at the cavoatrial junction. LUNGS: No focal consolidation. Please note that chest x-ray has limited sensitivity for the detection of pulmonary masses. PLEURA: No significant pleural effusion identified. No definite pneumothorax . CARDIOVASCULAR: Heart size appears within normal limits. Ectatic aorta. No significant atherosclerotic calcification present. OSSEOUS STRUCTURES: Humeral head appears located. Absence of the right humerus beyond a small proximal angulated portion of the humeral shaft. VISUALIZED UPPER ABDOMEN: Unremarkable. OTHER FINDINGS: None. IMPRESSION: Right-sided PICC. No focal consolidation identified.
[2018-08-31 12:41] LABS: URINE BILIRUBIN NEGATIVE (NEGATIVE); URINE BLOOD 1+ (NEGATIVE); URINE CLARITY Hazy (Clear); URINE COLOR YELLOW (YELLOW); URINE GLUCOSE (UA) NORMAL (Normal)
[2018-08-31 12:42] LABS: SQUAMOUS EPITHIAL 9 /hpf (0-5); URINE BACTERIA RARE (<OCC); URINE LEUKOCYTE ESTERASE NEGATIVE Leu/uL (Negative); URINE PROTEIN NEGATIVE (NEGATIVE); URINE UROBILINOGEN NORMAL mg/dL (0.2-1.0)
[2018-08-31 12:47] LABS: INR 2.4; PROTHROMBIN TIME 26.1 SECONDS (9.7-12.2)
[2018-08-31] MEDS ORDERED: Potassium Chloride 20 mEq ER Tab PO STA ×2 (13:26→16:24)
[2018-08-31] MEDS ORDERED: Calcium Gluconate 4.65 mEq/10 ml Inj IVP ONE (13:28)
[2018-08-31 13:30] LABS: ALB/GLOB RATIO 0.7 (1.0-2.1); ALBUMIN 1.9 g/dL (3.5-5.0); CALCIUM 5.6 mg/dl (8.6-10.4); TROPONIN I 0.175 ng/mL (0.00-0.120)
[2018-08-31] MEDS ORDERED: Calcium Gluconate 4.65 mEq/10 ml Inj ONE (13:55)
[2018-08-31] MEDS ORDERED: Potassium Chloride 20 mEq ER Tab PO ONE (13:55)
[2018-08-31] MEDS ORDERED: Potassium Chloride 20 mEq/15 ml LIQ UD PO STA (13:58)
--- NOTE | 2018-08-31 14:10 | CT ---
PROCEDURE: CT Abdomen and Pelvis without Oral or IV contrast. HISTORY: abd pain/renal failure COMPARISON: None available TECHNIQUE: Contiguous axial images of the abdomen and pelvis. No oral or IV contrast administered. Coronal and Sagittal reformats generated and reviewed. Radiation dose: Total exam DLP = 781.8 mGy-cm. This CT exam was performed using one or more of the following dose reduction techniques: Automated exposure control, adjustment of the mA and/or kV according to patient size, and/or use of iterative reconstruction technique. FINDINGS: There is limited evaluation of the solid organs without the administration of IV contrast. LOWER THORAX: No visible consolidation, pleural effusion, or pneumothorax. Coronary artery calcifications. Small pericardial effusion. LIVER: Coarse hepatic calcifications. GALLBLADDER AND BILE DUCTS: Gallbladder distension. No calcified gallstones. PANCREAS: Atrophic. SPLEEN: 9 mm and 8 mm probable splenules. Otherwise unremarkable. ADRENALS: Unremarkable unenhanced appearance. KIDNEYS AND URETERS: No hydronephrosis or obstructing renal calculus. BLADDER: Under distention of the urinary bladder limits evaluation. REPRODUCTIVE: Uterus is present. APPENDIX: The appendix appears within normal limits of caliber. No secondary signs of acute appendicitis. BOWEL: The stomach is nondistended. Lack of oral contrast limits evaluation for bowel pathology. The bowel loops appear within normal limits of caliber without evidence of intestinal obstruction. PERITONEUM: No significant free fluid. No definite free air. LYMPH NODES: No bulky lymphadenopathy identified. VASCULATURE: Atherosclerotic calcification of the aorta present. No aortic aneurysm. BONES: Scoliosis. Multilevel degenerative changes. Diffuse osseous demineralization. Multiple compression fracture deformities (T9, T10, T12, L1, L2, L3, and L4), most severely involving L1. OTHER FINDINGS: None. IMPRESSION: Gallbladder distension. No calcified gallstones. Suggest right upper quadrant ultrasound for further evaluation. Coarse hepatic calcifications. Multiple compression fracture deformities (T9, T10, T12, L1, L2, L3, and L4, most severely involving L1. Additional findings as above.
--- NOTE | 2018-08-31 14:59 | CP.PCM.CON ---
<Rajinder Shabazz - Last Filed: 08/31/18 15:21> History of Present Illness - History of Present Illness History of Present Illness: PGY1 Critical Care Consult for Dr. Martínez This is a 62-year-old female with PMH of renal insufficiency, hypertnesion, hyperlipidemia, and depression who was recently seen at [facility] for acute endocarditis. Today she presents for hypotension. Of note, patient states had her weekly PICC nurse vist earlier today, and the nurse recommended to the patient that she go to the ER due to low blood pressure. Patient also notes that she has been dizzy and tired for the last few days. Patient otherwise denies chest pain, abdominal pain, shortness of breath, rash, nausea, and/or vomiting. Review of Systems - Review of Systems All systems: reviewed and no additional remarkable complaints except - Constitutional Constitutional: As Per HPI - Cardiovascular Cardiovascular: As Per HPI - Respiratory Respiratory: As Per HPI - Gastrointestinal Gastrointestinal: As Per HPI - Genitourinary Genitourinary: As Per HPI - Musculoskeletal Musculoskeletal: As Per HPI - Integumentary Integumentary: As Per HPI - Neurological Neurological: As Per HPI Past Patient History - Past Medical History & Family History Past Medical History?: Yes - Past Social History Smoking Status: Never Smoked - CARDIAC Hx Hypercholesterolemia: Yes Hx Hypertension: Yes - MUSCULOSKELETAL/RHEUMATOLOGICAL Hx Falls: No - PSYCHIATRIC Hx Depression: Yes Hx Substance Use: No (unknown) - ANESTHESIA Hx Anesthesia: No Hx Anesthesia Reactions: No Hx Malignant Hyperthermia: No Meds Allergies/Adverse Reactions: Allergies Allergy/AdvReac Type Severity Reaction Status Date / Time No Known Allergies Allergy Verified 07/31/18 15:33 Physical Exam - Constitutional Appears: Toxic - Head Exam Head Exam: ATRAUMATIC, NORMAL INSPECTION, NORMOCEPHALIC - Eye Exam Eye Exam: EOMI, Normal appearance - ENT Exam ENT Exam: Mucous Membranes Dry (poor dentition ) - Respiratory Exam Respiratory Exam: Clear to Auscultation Bilateral, NORMAL BREATHING PATTERN - Cardiovascular Exam Cardiovascular Exam: REGULAR RHYTHM, RRR, Systolic Murmur (crescendo-decresendo ) - GI/Abdominal Exam GI & Abdominal Exam: Normal Bowel Sounds, Soft, Tenderness (diffuse tenderness to palpation ) - Extremities Exam Extremities exam: Negative for: normal inspection (diffuse bruising in lower extremities bilaterally. Scattered pink papules in bilateral knees and shins) - Back Exam Back exam: NORMAL INSPECTION - Neurological Exam Neurological exam: Alert, CN II-XII Intact, Oriented x3 - Psychiatric Exam Psychiatric exam: Normal Affect, Normal Mood - Skin Skin Exam: Dry, Warm Results - Vital Signs Recent Vital Signs: Last Vital Signs Temp 97.7 F 08/31/18 11:46 Pulse 103 H 08/31/18 11:46 Resp 16 08/31/18 11:46 BP 120/62 08/31/18 11:46 Pulse Ox 100 08/31/18 11:46 - Labs Result Diagrams: 08/31/18 11:08 08/31/18 12:45 Labs: Laboratory Results - last 24 hr 08/31/18 08/31/18 08/31/18 10:42 11:08 11:08 WBC 14.0 H D RBC 2.77 L Hgb 8.8 L Hct 24.4 L MCV 87.9 D MCH 31.6 H MCHC 35.9 RDW 15.5 H Plt Count 306 D MPV 8.5 Neut % (Auto) 87.9 H Lymph % (Auto) 6.7 L [place] % (Auto) 4.2 Eos % (Auto) 0.6 Baso % (Auto) 0.6 Neut # (Auto) 12.3 H Lymph # (Auto) 0.9 L [place] # (Auto) 0.6 Eos # (Auto) 0.1 Baso # (Auto) 0.1 Neutrophils % (Manual) 90 H Lymphocytes % (Manual) 5 L Monocytes % (Manual) 3 Eosinophils % (Manual) 2 Platelet Estimate Normal Polychromasia Slight Hypochromasia (manual) Slight Anisocytosis (manual) Slight Ovalocytes Slight [place]ph Cells Moderate PT INR APTT Sodium 126 L Potassium 1.1 L* D Chloride 96 L Carbon Dioxide 15 L Anion Gap 16 BUN 26 H Creatinine 2.5 H Est GFR ( Amer) 24 Est GFR (Non-Af Amer) 20 Random Glucose 92 Calcium 5.9 L* D Total Bilirubin 2.3 H AST 17 ALT 27 Alkaline Phosphatase 71 Total Creatine Kinase 28 L Troponin I 0.1810 H* Total Protein 4.6 L Albumin 2.0 L D Globulin 2.7 Albumin/Globulin Ratio 0.7 L Lipase 61 Urine Color Yellow Urine Clarity Hazy Urine pH 6.0 Ur Specific [place] 1.009 Urine Protein Negative Urine Glucose (UA) Normal Urine Ketones Negative Urine Blood 1+ H Urine Nitrate Negative Urine Bilirubin Negative Urine Urobilinogen Normal Ur Leukocyte Esterase Negative Urine WBC (Auto) 1 Urine RBC (Auto) 2 Ur Squamous Epith Cells 9 H Urine Bacteria Rare Urine Yeast (Budding) Few H 08/31/18 08/31/18 12:32 12:45 WBC RBC Hgb Hct MCV MCH MCHC RDW Plt Count MPV Neut % (Auto) Lymph % (Auto) [place] % (Auto) Eos % (Auto) Baso % (Auto) Neut # (Auto) Lymph # (Auto) [place] # (Auto) Eos # (Auto) Baso # (Auto) Neutrophils % (Manual) Lymphocytes % (Manual) Monocytes % (Manual) Eosinophils % (Manual) Platelet Estimate Polychromasia Hypochromasia (manual) Anisocytosis (manual) Ovalocytes Steph Cells PT 26.1 H INR 2.4 APTT 34 Sodium 129 L Potassium 1.2 L* Chloride 98 Carbon Dioxide 15 L Anion Gap 17 BUN 25 H Creatinine 2.5 H Est GFR ( Amer) 24 Est GFR (Non-Af Amer) 20 Random Glucose 93 Calcium 5.6 L* Total Bilirubin 1.7 H AST 13 L D ALT 27 Alkaline Phosphatase 53 Total Creatine Kinase 23 L Troponin I 0.1750 H* Total Protein 4.4 L Albumin 1.9 L Globulin 2.5 Albumin/Globulin Ratio 0.7 L Lipase 56 Urine Color Urine Clarity Urine pH Ur Specific [place] Urine Protein Urine Glucose (UA) Urine Ketones Urine Blood Urine Nitrate Urine Bilirubin Urine Urobilinogen Ur Leukocyte Esterase Urine WBC (Auto) Urine RBC (Auto) Ur Squamous Epith Cells Urine Bacteria Urine Yeast (Budding) Assessment & Plan - Assessment and Plan (Free Text) Assessment: This is a 62-year-old female with PMH of renal insufficiency, hypertnesion, hyperlipidemia, and depression who was recently seen at [facility] for possible acute endocarditis. Today she presents for dizziness and hypotension. Patient was found to have hypokalemia in the ED (K+=1.1), and potassium is currently being repleted. Patient is being accepted to ICU for close monitoring and further treatment. Neuro: - Patient A&O x3 - Monitor neuro checks CV: - History of possible acute endocarditis with Staph infection - EKG abnormal with sinus tachycardia and right atrial enlargement Pulm: - No acute issues - Monitor - Maintain O2 sat > 92% - O2 PRN 2L NC GI: - CT ABD/ Pelvis: Gallbladder distention. No calcified gallstones. Coarse hepatic calcifications. Renal: - Severe hypokalemia K+=1.1 (symptomatic) - Currently being treated with PO and IV repletion of potassium - Pending magnesium - Monitor CMP with Mg, Phos ID: - History of endocarditis - Patient was getting IV antibiotics via PICC line as outpatient - Leukocytosis WBC=14 - IVF Heme: - Normocytic anemia; chronic - Hgb=8.8 - No acute issues - Monitor H/H MSK: - CT ABD/Pelvis: Multple compression fracture deformities (most severe L1); please see full report Patient seen and case discussed in detail with Dr. Martínez PGY1 Rajinder Shabazz <Prasanna Martínez - Last Filed: 08/31/18 17:26> Meds - Medications Medications: Current Medications Heparin Sodium (Porcine) (Heparin) 5,000 units SC Q8 [facility] Potassium Chloride (Potassium Chloride 20 Meq/100 Ml) 20 meq in 100 mls @ 50 mls/hr IVPB ONCE ONE Stop: 08/31/18 18:48 Last Admin: 08/31/18 17:14 Dose: 50 mls/hr Sodium Chloride (Sodium Chloride 0.9%) 1,000 mls @ 100 mls/hr IV .Q10H [facility] Pantoprazole Sodium (Protonix Ec Tab) 40 mg PO DAILY [facility] Last Admin: 08/31/18 17:14 Dose: 40 mg Pneumococcal Polyvalent Vaccine (Pneumovax 23 Vaccine) 0.5 ml IM .ONCE ONE Stop: 09/03/18 17:09 Vitamin A (Vitamin A & D Oint Ud Foilpak) 0.5 ea TOP Q4 [facility] Last Admin: 08/31/18 16:38 Dose: 0.5 ea Results - Vital Signs Recent Vital Signs: Last Vital Signs Temp 97.7 F 08/31/18 11:46 Pulse 69 08/31/18 15:29 Resp 16 08/31/18 15:29 BP 95/56 L 08/31/18 15:29 Pulse Ox 99 08/31/18 17:25 - Labs Result Diagrams: 08/31/18 11:08 08/31/18 12:45 Labs: Laboratory Results - last 24 hr 08/31/18 08/31/1818 10:42 11:08 11:08 WBC 14.0 H D RBC 2.77 L Hgb 8.8 L Hct 24.4 L MCV 87.9 D MCH 31.6 H MCHC 35.9 RDW 15.5 H Plt Count 306 D MPV 8.5 Neut % (Auto) 87.9 H Lymph % (Auto) 6.7 L [place] % (Auto) 4.2 Eos % (Auto) 0.6 Baso % (Auto) 0.6 Neut # (Auto) 12.3 H Lymph # (Auto) 0.9 L [place] # (Auto) 0.6 Eos # (Auto) 0.1 Baso # (Auto) 0.1 Neutrophils % (Manual) 90 H Lymphocytes % (Manual) 5 L Monocytes % (Manual) 3 Eosinophils % (Manual) 2 Platelet Estimate Normal Polychromasia Slight Hypochromasia (manual) Slight Anisocytosis (manual) Slight Ovalocytes Slight Steph Cells Moderate PT INR APTT Sodium 126 L Potassium 1.1 L* D Chloride 96 L Carbon Dioxide 15 L Anion Gap 16 BUN 26 H Creatinine 2.5 H Est GFR ( Amer) 24 Est GFR (Non-Af Amer) 20 Random Glucose 92 Calcium 5.9 L* D Total Bilirubin 2.3 H AST 17 ALT 27 Alkaline Phosphatase 71 Total Creatine Kinase 28 L Troponin I 0.1810 H* Total Protein 4.6 L Albumin 2.0 L D Globulin 2.7 Albumin/Globulin Ratio 0.7 L Lipase 61 Urine Color Yellow Urine Clarity Hazy Urine pH 6.0 Ur Specific [place] 1.009 Urine Protein Negative Urine Glucose (UA) Normal Urine Ketones Negative Urine Blood 1+ H Urine Nitrate Negative Urine Bilirubin Negative Urine Urobilinogen Normal Ur Leukocyte Esterase Negative Urine WBC (Auto) 1 Urine RBC (Auto) 2 Ur Squamous Epith Cells 9 H Urine Bacteria Rare Urine Yeast (Budding) Few H 08/31/18 08/31/18 12:32 12:45 WBC RBC Hgb Hct MCV MCH MCHC RDW Plt Count MPV Neut % (Auto) Lymph % (Auto) [place] % (Auto) Eos % (Auto) Baso % (Auto) Neut # (Auto) Lymph # (Auto) [place] # (Auto) Eos # (Auto) Baso # (Auto) Neutrophils % (Manual) Lymphocytes % (Manual) Monocytes % (Manual) Eosinophils % (Manual) Platelet Estimate Polychromasia Hypochromasia (manual) Anisocytosis (manual) Ovalocytes [place] Cells PT 26.1 H INR 2.4 APTT 34 Sodium 129 L Potassium 1.2 L* Chloride 98 Carbon Dioxide 15 L Anion Gap 17 BUN 25 H Creatinine 2.5 H Est GFR ( Amer) 24 Est GFR (Non-Af Amer) 20 Random Glucose 93 Calcium 5.6 L* Total Bilirubin 1.7 H AST 13 L D ALT 27 Alkaline Phosphatase 53 Total Creatine Kinase 23 L Troponin I 0.1750 H* Total Protein 4.4 L Albumin 1.9 L Globulin 2.5 Albumin/Globulin Ratio 0.7 L Lipase 56 Urine Color Urine Clarity Urine pH Ur Specific [place] Urine Protein Urine Glucose (UA) Urine Ketones Urine Blood Urine Nitrate Urine Bilirubin Urine Urobilinogen Ur Leukocyte Esterase Urine WBC (Auto) Urine RBC (Auto) Ur Squamous Epith Cells Urine Bacteria Urine Yeast (Budding) Attending/Attestation - Attestation I have personally seen and examined this patient.: Yes I have fully participated in the care of the patient.: Yes I have reviewed all pertinent clinical information: Yes Notes (Text): 08/31/18 17:26 Patient seen and examined 62-year-old female [facility]iness and hypotension Patient found to be hypokalemic and hyponatremic Potassium supplement ICU observation Continue antibiotics for a history of endocarditis
[2018-08-31] MEDS ORDERED: Sodium Chloride 0.9% 1,000 ML IV ONE (16:11)
[2018-08-31] MEDS: Vitamins A & D Oint UD Foilpak TOP SCH ×3 (16:38→23:28)
[2018-08-31] MEDS: Pantoprazole 40 mg EC Tab PO SCH (17:14)
[2018-08-31] MEDS: Sodium Chloride 0.9% 1,000 ML IV SCH (17:15)
--- NOTE | 2018-08-31 20:02 | CP.PCM.CON ---
History of Present Illness - History of Present Illness History of Present Illness: 62-year-old female with PMH of renal insufficiency, hypertnesion, hyperlipidemia, and depression who was recently seen at [facility] for acute endocarditis. Today she presents for hypotension hx of endocarditis was on home IV rx will repeat blood c/s Review of Systems - Review of Systems All systems: reviewed and no additional remarkable complaints except - Constitutional Constitutional: As Per HPI Past Patient History - Past Medical History & Family History Past Medical History?: Yes - Past Social History Smoking Status: Never Smoked - CARDIAC Hx Hypercholesterolemia: Yes Hx Hypertension: Yes - PULMONARY Hx Pneumonia: Yes - RENAL Hx Renal Failure: Yes - MUSCULOSKELETAL/RHEUMATOLOGICAL Hx Falls: No - GENITOURINARY/GYNECOLOGICAL Hx Incontinence: Yes - PSYCHIATRIC Hx Depression: Yes Hx Substance Use: No (unknown) - SURGICAL HISTORY Hx Section: Yes - ANESTHESIA Hx Anesthesia: No Hx Anesthesia Reactions: No Hx Malignant Hyperthermia: No Meds Allergies/Adverse Reactions: Allergies Allergy/AdvReac Type Severity Reaction Status Date / Time No Known Allergies Allergy Verified 07/31/18 15:33 - Medications Medications: Current Medications Aspirin (Aspirin Chewable) 81 mg PO DAILY [facility] Benztropine Mesylate (Cogentin) 1 mg PO BID [facility] Heparin Sodium (Porcine) (Heparin) 5,000 units SC Q8 [facility] Sodium Chloride (Sodium Chloride 0.9%) 1,000 mls @ 100 mls/hr IV .Q10H [facility] Last Admin: 08/31/18 17:15 Dose: 100 mls/hr Pantoprazole Sodium (Protonix Ec Tab) 40 mg PO DAILY [facility] Last Admin: 08/31/18 17:14 Dose: 40 mg Pneumococcal Polyvalent Vaccine (Pneumovax 23 Vaccine) 0.5 ml IM .ONCE ONE Stop: 09/03/18 17:09 Vitamin A (Vitamin A & D Oint Ud Foilpak) 0.5 ea TOP Q4 [facility] Last Admin: 08/31/18 16:38 Dose: 0.5 ea Physical Exam - Constitutional Appears: Chronically Ill - Head Exam Head Exam: ATRAUMATIC - Eye Exam Eye Exam: absent: Scleral icterus - ENT Exam ENT Exam: Mucous Membranes Dry - Neck Exam Neck exam: Negative for: Lymphadenopathy - Respiratory Exam Respiratory Exam: Decreased Breath Sounds, Rhonchi - Cardiovascular Exam Cardiovascular Exam: REGULAR RHYTHM, +S1, +S2 - GI/Abdominal Exam GI & Abdominal Exam: Diminished Bowel Sounds, Soft. absent: Tenderness - Rectal Exam Rectal Exam: Deferred - Exam Exam: NORMAL INSPECTION - Extremities Exam Extremities exam: Negative for: pedal edema - Back Exam Back exam: absent: CVA tenderness (L), CVA tenderness (R) - Neurological Exam Neurological exam: Alert, CN II-XII Intact, Oriented x3, Reflexes Normal - Psychiatric Exam Psychiatric exam: Depressed - Skin Skin Exam: Dry Results - Vital Signs Recent Vital Signs: Last Vital Signs Temp 97.5 F L 08/31/18 16:00 Pulse 113 H 08/31/18 19:01 Resp 20 08/31/18 19:01 BP 98/53 L 08/31/18 19:01 Pulse Ox 99 08/31/18 19:01 - Labs Result Diagrams: 09/01/18 05:56 09/01/18 14:51 Labs: Laboratory Results - last 24 hr 08/31/18 08/31/18 08/31/18 10:42 11:08 11:08 WBC 14.0 H D RBC 2.77 L Hgb 8.8 L Hct 24.4 L MCV 87.9 D MCH 31.6 H MCHC 35.9 RDW 15.5 H Plt Count 306 D MPV 8.5 Neut % (Auto) 87.9 H Lymph % (Auto) 6.7 L [place] % (Auto) 4.2 Eos % (Auto) 0.6 Baso % (Auto) 0.6 Neut # (Auto) 12.3 H Lymph # (Auto) 0.9 L [place] # (Auto) 0.6 Eos # (Auto) 0.1 Baso # (Auto) 0.1 Neutrophils % (Manual) 90 H Lymphocytes % (Manual) 5 L Monocytes % (Manual) 3 Eosinophils % (Manual) 2 Platelet Estimate Normal Polychromasia Slight Hypochromasia (manual) Slight Anisocytosis (manual) Slight Ovalocytes Slight [place] Cells Moderate PT INR APTT Sodium 126 L Potassium 1.1 L* D Chloride 96 L Carbon Dioxide 15 L Anion Gap 16 BUN 26 H Creatinine 2.5 H Est GFR ( Amer) 24 Est GFR (Non-Af Amer) 20 Random Glucose 92 Calcium 5.9 L* D Total Bilirubin 2.3 H AST 17 ALT 27 Alkaline Phosphatase 71 Total Creatine Kinase 28 L Troponin I 0.1810 H* Total Protein 4.6 L Albumin 2.0 L D Globulin 2.7 Albumin/Globulin Ratio 0.7 L Lipase 61 Urine Color Yellow Urine Clarity Hazy Urine pH 6.0 Ur Specific [place] 1.009 Urine Protein Negative Urine Glucose (UA) Normal Urine Ketones Negative Urine Blood 1+ H Urine Nitrate Negative Urine Bilirubin Negative Urine Urobilinogen Normal Ur Leukocyte Esterase Negative Urine WBC (Auto) 1 Urine RBC (Auto) 2 Ur Squamous Epith Cells 9 H Urine Bacteria Rare Urine Yeast (Budding) Few H 08/31/18 08/31/18 12:32 12:45 WBC RBC Hgb Hct MCV MCH MCHC RDW Plt Count MPV Neut % (Auto) Lymph % (Auto) [place] % (Auto) Eos % (Auto) Baso % (Auto) Neut # (Auto) Lymph # (Auto) [place] # (Auto) Eos # (Auto) Baso # (Auto) Neutrophils % (Manual) Lymphocytes % (Manual) Monocytes % (Manual) Eosinophils % (Manual) Platelet Estimate Polychromasia Hypochromasia (manual) Anisocytosis (manual) Ovalocytes [place] Cells PT 26.1 H INR 2.4 APTT 34 Sodium 129 L Potassium 1.2 L* Chloride 98 Carbon Dioxide 15 L Anion Gap 17 BUN 25 H Creatinine 2.5 H Est GFR ( Amer) 24 Est GFR (Non-Af Amer) 20 Random Glucose 93 Calcium 5.6 L* Total Bilirubin 1.7 H AST 13 L D ALT 27 Alkaline Phosphatase 53 Total Creatine Kinase 23 L Troponin I 0.1750 H* Total Protein 4.4 L Albumin 1.9 L Globulin 2.5 Albumin/Globulin Ratio 0.7 L Lipase 56 Urine Color Urine Clarity Urine pH Ur Specific [place] Urine Protein Urine Glucose (UA) Urine Ketones Urine Blood Urine Nitrate Urine Bilirubin Urine Urobilinogen Ur Leukocyte Esterase Urine WBC (Auto) Urine RBC (Auto) Ur Squamous Epith Cells Urine Bacteria Urine Yeast (Budding) Assessment & Plan (1) Leukocytosis Status: Acute (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 - Assessment and Plan (Free Text) Assessment: will reculture start IV antibiotics
[2018-08-31 20:24] LABS: INR 2.3; PROTHROMBIN TIME 25.5 SECONDS (9.7-12.2)
--- NOTE | 2018-08-31 20:24 | CP.PCM.HP ---
Past Patient History - Past Medical History & Family History Past Medical History?: Yes - Past Social History Smoking Status: Never Smoked - CARDIAC Hx Hypercholesterolemia: Yes Hx Hypertension: Yes - PULMONARY Hx Pneumonia: Yes - RENAL Hx Renal Failure: Yes - MUSCULOSKELETAL/RHEUMATOLOGICAL Hx Falls: No - GENITOURINARY/GYNECOLOGICAL Hx Incontinence: Yes - PSYCHIATRIC Hx Depression: Yes Hx Substance Use: No (unknown) - SURGICAL HISTORY Hx Section: Yes - ANESTHESIA Hx Anesthesia: No Hx Anesthesia Reactions: No Hx Malignant Hyperthermia: No Meds Allergies/Adverse Reactions: Allergies Allergy/AdvReac Type Severity Reaction Status Date / Time No Known Allergies Allergy Verified 07/31/18 15:33 Physical Exam - Constitutional Appears: Well - Head Exam Head Exam: ATRAUMATIC, NORMAL INSPECTION, NORMOCEPHALIC - Eye Exam Eye Exam: EOMI, Normal appearance, PERRL Pupil Exam: NORMAL ACCOMODATION, PERRL - ENT Exam ENT Exam: Mucous Membranes Moist, Normal Exam - Neck Exam Neck exam: Positive for: Normal Inspection - Respiratory Exam Respiratory Exam: Decreased Breath Sounds - Cardiovascular Exam Cardiovascular Exam: REGULAR RHYTHM, +S1, +S2 - GI/Abdominal Exam GI & Abdominal Exam: Diminished Bowel Sounds, Soft - Rectal Exam Rectal Exam: Deferred Results - Vital Signs Recent Vital Signs: Last Vital Signs Temp 97.5 F L 08/31/18 16:00 Pulse 113 H 08/31/18 19:01 Resp 20 08/31/18 19:01 BP 98/53 L 08/31/18 19:01 Pulse Ox 99 08/31/18 19:01 - Labs Result Diagrams: 08/31/18 11:08 08/31/18 12:45 Labs: Laboratory Results - last 24 hr 08/31/18 08/31/18 08/31/18 10:42 11:08 11:08 WBC 14.0 H D RBC 2.77 L Hgb 8.8 L Hct 24.4 L MCV 87.9 D MCH 31.6 H MCHC 35.9 RDW 15.5 H Plt Count 306 D MPV 8.5 Neut % (Auto) 87.9 H Lymph % (Auto) 6.7 L [place] % (Auto) 4.2 Eos % (Auto) 0.6 Baso % (Auto) 0.6 Neut # (Auto) 12.3 H Lymph # (Auto) 0.9 L [place] # (Auto) 0.6 Eos # (Auto) 0.1 Baso # (Auto) 0.1 Neutrophils % (Manual) 90 H Lymphocytes % (Manual) 5 L Monocytes % (Manual) 3 Eosinophils % (Manual) 2 Platelet Estimate Normal Polychromasia Slight Hypochromasia (manual) Slight Anisocytosis (manual) Slight Ovalocytes Slight [place] Cells Moderate PT INR APTT Sodium 126 L Potassium 1.1 L* D Chloride 96 L Carbon Dioxide 15 L Anion Gap 16 BUN 26 H Creatinine 2.5 H Est GFR ( Amer) 24 Est GFR (Non-Af Amer) 20 Random Glucose 92 Calcium 5.9 L* D Total Bilirubin 2.3 H AST 17 ALT 27 Alkaline Phosphatase 71 Total Creatine Kinase 28 L Troponin I 0.1810 H* Total Protein 4.6 L Albumin 2.0 L D Globulin 2.7 Albumin/Globulin Ratio 0.7 L Lipase 61 Urine Color Yellow Urine Clarity Hazy Urine pH 6.0 Ur Specific [place] 1.009 Urine Protein Negative Urine Glucose (UA) Normal Urine Ketones Negative Urine Blood 1+ H Urine Nitrate Negative Urine Bilirubin Negative Urine Urobilinogen Normal Ur Leukocyte Esterase Negative Urine WBC (Auto) 1 Urine RBC (Auto) 2 Ur Squamous Epith Cells 9 H Urine Bacteria Rare Urine Yeast (Budding) Few H 08/31/18 08/31/18 12:32 12:45 WBC RBC Hgb Hct MCV MCH MCHC RDW Plt Count MPV Neut % (Auto) Lymph % (Auto) [place] % (Auto) Eos % (Auto) Baso % (Auto) Neut # (Auto) Lymph # (Auto) [place] # (Auto) Eos # (Auto) Baso # (Auto) Neutrophils % (Manual) Lymphocytes % (Manual) Monocytes % (Manual) Eosinophils % (Manual) Platelet Estimate Polychromasia Hypochromasia (manual) Anisocytosis (manual) Ovalocytes [place] Cells PT 26.1 H INR 2.4 APTT 34 Sodium 129 L Potassium 1.2 L* Chloride 98 Carbon Dioxide 15 L Anion Gap 17 BUN 25 H Creatinine 2.5 H Est GFR ( Amer) 24 Est GFR (Non-Af Amer) 20 Random Glucose 93 Calcium 5.6 L* Total Bilirubin 1.7 H AST 13 L D ALT 27 Alkaline Phosphatase 53 Total Creatine Kinase 23 L Troponin I 0.1750 H* Total Protein 4.4 L Albumin 1.9 L Globulin 2.5 Albumin/Globulin Ratio 0.7 L Lipase 56 Urine Color Urine Clarity Urine pH Ur Specific [place] Urine Protein Urine Glucose (UA) Urine Ketones Urine Blood Urine Nitrate Urine Bilirubin Urine Urobilinogen Ur Leukocyte Esterase Urine WBC (Auto) Urine RBC (Auto) Ur Squamous Epith Cells Urine Bacteria Urine Yeast (Budding)
[2018-08-31 20:50] LABS: ALB/GLOB RATIO 0.7 (1.0-2.1); ALBUMIN 1.9 g/dL (3.5-5.0); CALCIUM 5.5 mg/dl (8.6-10.4)
[2018-08-31] MEDS: Magnesium Sulfate 1 gm in D5W 1 GM/100 ML BAG IVPB SCH ×2 (21:32→22:34)
[2018-08-31] MEDS: guaiFENesin DM 100 mg-10 mg/5 ml UD PO PRN (21:33)
[2018-08-31] MEDS: SODIUM CHLORIDE 0.45% IV SCH (21:42)
[2018-08-31] MEDS: POTASSIUM CHLORIDE IV SCH (21:42)
[2018-09-01] MEDS: Sodium Chloride 0.9% 1,000 ML IV SCH ×2 (04:20→05:27)
[2018-09-01] MEDS: Vitamins A & D Oint UD Foilpak TOP SCH ×5 (04:23→20:14)
[2018-09-01 06:03] LABS: BASO # 0.2 K/uL (0.0-0.2); BASO % 1.1 % (0.0-2.0); EOS # 0.1 K/uL (0.0-0.7); EOS % 0.6 % (0.0-4.0); HEMOGLOBIN 7.7 g/dL (11.0-16.0); LYMPH # 1.2 K/uL (1.0-4.3); LYMPH % 6.4 % (20.0-40.0); MEAN CELL VOLUME 89.3 fL (81.0-99.0); MEAN CORPUSCULAR HEMOGLOBIN 31.2 pg (27.0-31.0); MEAN CORPUSCULAR HGB CONC 34.9 g/dL (33.0-37.0); MEAN PLATELET VOLUME 8.6 fL (7.2-11.7); MONO # 0.8 K/uL (0.0-0.8); MONO % 4.2 % (0.0-10.0); NEUT # 16.1 K/uL (1.8-7.0); NEUT % 87.7 % (50.0-75.0); NRBC % 0.1 % (0.0-2.0); PLATELET COUNT 283 K/uL (130-400); RBC 2.46 Mil/uL (3.80-5.20); RED CELL DISTRIBUTION WIDTH 15.9 % (11.5-14.5); WHITE BLOOD COUNT 18.4 K/uL (4.8-10.8)
[2018-09-01 06:32] LABS: ALB/GLOB RATIO 0.7 (1.0-2.1); ALBUMIN 1.9 g/dL (3.5-5.0); CALCIUM 5.6 mg/dl (8.6-10.4)
[2018-09-01] MEDS: SODIUM CHLORIDE 0.45% IV SCH (07:08)
[2018-09-01] MEDS: POTASSIUM CHLORIDE IV SCH (07:08)
[2018-09-01 08:28] LABS: BANDS 4 % (0-2); LYMPHOCYTE 7 % (20-40); MONOCYTE 5 % (0-10); NEUTROPHIL 84 % (50-75); TOTAL CELLS COUNTED 100
[2018-09-01 08:29] LABS: ANISOCYTOSIS SLIGHT; PLATELET ESTIMATE NORMAL (NORMAL); POLYCHROMIC SLIGHT
[2018-09-01 08:30] LABS: BURR CELLS MODERATE
[2018-09-01] MEDS ORDERED: Potassium Chloride 20 mEq ER Tab PO ONE (08:30)
[2018-09-01] MEDS ORDERED: Magnesium Sulfate 1 gm in D5W 1 GM/100 ML BAG IVPB ONE (08:30)
[2018-09-01] MEDS ORDERED: Potassium Chloride 40 MEQ in Lactated Ringer's 1,000 ML IV SCH (09:00)
[2018-09-01] MEDS: Pantoprazole 40 mg EC Tab PO SCH (09:20)
[2018-09-01] MEDS ORDERED: Alum-Mag Hydrox-Simethicone Susp (30 mL) PO PRN (09:55)
[2018-09-01] MEDS ORDERED: Potassium Chloride 20 mEq/15 ml LIQ UD PO SCH (10:45)
[2018-09-01] MEDS: Albumin Human 25% (12.5 gm/50 ml) IV SCH ×3 (10:45→22:32)
--- NOTE | 2018-09-01 11:00 | CP.CCUPN ---
<Rajinder Shabazz - Last Filed: 09/01/18 12:06> CCU Subjective - Physician Review Events Since Last Encounter (Free Text): 09/01/18 10:57 No acute events overnight Subjective (Free Text): 09/01/18 10:57 PGY1 Critical Care Progress Note for Dr. Marc Patient was seen and evaluated at bedside this morning. Patient states she has generalized achy pains. Patient also complains of poor PO intake due to nausea that has been ongoing. Patient otherwise denies chest pain, shortness of breath, headache, blurred vision, fever, chills, and/or vomiting. Critical Care Time Spent (in minutes): 35 CCU Objective - Vital Signs / Intake & Output Vital Signs (Last 4 hours): Vital Signs Temp Pulse Resp BP Pulse Ox 09/01/18 08:40 114 H 18 100 09/01/18 08:30 116 H 20 100 09/01/18 08:29 116 H 17 98/53 L 100 09/01/18 08:20 116 H 17 100 09/01/18 08:10 117 H 17 100 09/01/18 08:00 97.4 F L 116 H 17 100 09/01/18 07:50 116 H 20 100 09/01/18 07:40 117 H 16 100 09/01/18 07:30 116 H 18 100 09/01/18 07:29 116 H 18 100/57 L 100 09/01/18 07:20 116 H 17 99 09/01/18 07:10 116 H 19 99 09/01/18 07:00 115 H 17 98 Intake and Output (Last 8hrs): Intake & Output 08/31/18 09/01/18 09/01/18 22:59 06:59 14:59 Intake Total 1595 1730 310 Output Total 1 0 0 Balance 1594 1730 310 Weight 161 lb 13.109 oz 210 lb 8.663 oz Intake: Intake, IV Amount 1205 1090 110 Left PICC 800 650 Left Proximal Port PICC 405 440 110 Oral 390 640 200 Output: Urine/Stool Mix 1 Emesis 0 0 0 Other: Voiding Method Incontinent # Voids Urine, Voided 1 # Bowel Movements 1 1 - Physical Exam Head: Positive for: Atraumatic, Normocephalic Pupils: Positive for: PERRL Extroacular Muscles: Positive for: EOMI Conjunctiva: Positive for: Normal Mouth: Positive for: Dry (oral mucosa lesions and tenderness when asked to open mouth and stick out tongue ), Normal Tounge (tenderness). Negative for: Moist Mucous Membranes Nose (External): Positive for: Atraumatic Nose (Internal): Positive for: Normal Inspection Neck: Positive for: Normal Range of Motion Respiratory/Chest: Positive for: Clear to Auscultation. Negative for: Respiratory Distress, Accessory Muscle Use, Tachypneic Cardiovascular: Positive for: Murmurs (systolic crescendo-decrescendo murmur ), Normal S1, S2 Abdomen: Positive for: Tenderness (generalized ). Negative for: Distention, Peritoneal Signs, McBurney's Point Tender, Rovsing's Sign Present Genitourinary/Pelvic Exam: Negative for: Normal External Genitalia (sloughing of the skin located on mons pubis ) Back: Positive for: Paraspinal Tenderness Upper Extremity: Positive for: Edema (bilateral edema, bilateral bruising, bilateral erythema ), NORMAL PULSES. Negative for: Normal Inspection, Deformity Lower Extremity: Positive for: Edema (bilateral lower extremity edema with diffuse bruising in lower extremities bilaterally. Scattered pink papules in bilateral knees and shins) Neurological: Positive for: GCS=15, CN II-XII Intact, Speech Normal Skin: Positive for: Warm, Dry Psychiatric: Positive for: Alert, Oriented x 3, Normal Insight, Normal Concentration - Medications Active Medications: Active Medications Generic Name Dose Route Start Last Admin Trade Name Freq PRN Reason Stop Dose Admin Al Hydrox/Mg Hydrox/Simethicone 30 ml 09/01/18 09:55 09/01/18 10:44 Maalox Plus 30 Ml PO 30 ml Q6H PRN Administration Indigestion / Heartburn Albumin Human 25 gm 09/01/18 10:45 09/01/18 10:45 Albumin Human 25% (12.5 Gm/50 Ml) IV 09/02/18 04:46 25 gm Q6H JOSE Administration Ascorbic Acid 1,000 mg 09/01/18 10:00 09/01/18 10:09 Vitamin C 500 Mg Tab PO 1,000 mg DAILY JOSE Administration Aspirin 81 mg 09/01/18 10:00 09/01/18 09:20 Aspirin Chewable PO 81 mg DAILY JOSE Administration Benztropine Mesylate 1 mg 09/01/18 10:00 09/01/18 10:09 Cogentin PO 1 mg BID JOSE Administration Calcium/Vitamin D 1 tab 09/01/18 11:00 Oyster Shell Calcium/Vitamin D 500 Mg-200 Iu PO BID [facility] Epoetin Morales 10,000 unit 09/01/18 11:00 Procrit SC TTS [facility] Ergocalciferol 1 cap 09/01/18 11:00 Drisdol 50,000 Intl Units Cap PO Q7D [facility] Ferrous Gluconate 324 mg 09/01/18 14:00 Fergon PO TID JOSE Guaifenesin/Dextromethorphan 5 ml 08/31/18 21:11 08/31/18 21:33 Robitussin Dm PO 5 ml Q4H PRN Administration Cough Heparin Sodium (Porcine) 5,000 units 08/31/18 22:00 09/01/18 05:26 Heparin SC 5,000 units Q8 JOSE Administration Cefazolin Sodium 1,000 mg/ 50 mls @ 100 mls/hr 08/31/18 21:00 09/01/18 04:23 Sodium Chloride IVPB 100 mls/hr Q8H JOSE Administration Protocol Potassium Chloride 100 meq/ 550 mls @ 55 mls/hr 08/31/18 21:15 09/01/18 07:08 Sodium Chloride IV 55 mls/hr .Q10H JOSE Administration Sodium Bicarbonate 150 meq/ 1,150 mls @ 75 mls/hr 09/01/18 11:00 Dextrose IV .[id number] [facility] Calcium Gluconate 2,000 mg/ 270 mls @ 0 mls/hr 09/01/18 10:49 Sodium Chloride IVPB 09/01/18 10:50 ONCE ONE Per Protocol Magnesium Oxide 400 mg 09/01/18 11:00 Mag-Ox PO BID [facility] Multivitamins 1 tab 09/01/18 10:45 Hexavitamin PO DAILY [facility] Nystatin 1 applic 09/01/18 10:00 Nystop Topical Powder TOP 09/15/18 10:01 BID [facility] Pantoprazole Sodium 40 mg 08/31/18 17:00 09/01/18 09:20 Protonix Ec Tab PO 40 mg DAILY JOSE Administration Pneumococcal Polyvalent Vaccine 0.5 ml 09/03/18 17:08 Pneumovax 23 Vaccine IM 09/03/18 17:09 .ONCE ONE Potassium Chloride 60 meq 09/01/18 10:45 09/01/18 10:45 Potassium Chloride Oral Soln PO 60 meq Q6H JOSE Administration Saliva Substitute 10 ml 09/01/18 10:00 First Magic Mouthwash PO QID JOSE Sodium Bicarbonate 1,300 mg 09/01/18 11:00 Sodium Bicarbonate Tab PO TID JOSE Vitamin A 0.5 ea 08/31/18 16:00 09/01/18 08:29 Vitamin A & D Oint Ud Foilpak TOP 0.5 ea Q4 JOSE Administration Vitamin B Complex/Vit C/Folic Acid 1 tab 09/02/18 08:00 Nephro-Fortino PO 0800 JOSE Zinc Sulfate 220 mg 09/01/18 10:00 09/01/18 10:09 Zinc Sulfate 220 Mg Cap PO 220 mg DAILY JOSE Administration - Patient Studies Lab Studies: Lab Studies 09/01/18 09/01/18 08/31/18 Range/Units 05:56 05:56 20:08 WBC 18.4 H (4.8-10.8) K/uL RBC 2.46 L (3.80-5.20) Mil/uL Hgb 7.7 L (11.0-16.0) g/dL Hct 21.9 L (34.0-47.0) % MCV 89.3 (81.0-99.0) fL MCH 31.2 H (27.0-31.0) pg MCHC 34.9 (33.0-37.0) g/dL RDW 15.9 H (11.5-14.5) % Plt Count 283 (130-400) K/uL MPV 8.6 (7.2-11.7) fL Neut % (Auto) 87.7 H (50.0-75.0) % Lymph % (Auto) 6.4 L (20.0-40.0) % [place] % (Auto) 4.2 (0.0-10.0) % Eos % (Auto) 0.6 (0.0-4.0) % Baso % (Auto) 1.1 (0.0-2.0) % Neut # (Auto) 16.1 H (1.8-7.0) K/uL Lymph # (Auto) 1.2 (1.0-4.3) K/uL [place] # (Auto) 0.8 (0.0-0.8) K/uL Eos # (Auto) 0.1 (0.0-0.7) K/uL Baso # (Auto) 0.2 (0.0-0.2) K/uL Neutrophils % (Manual) 84 H (50-75) % Band Neutrophils % 4 H (0-2) % Lymphocytes % (Manual) 7 L (20-40) % Monocytes % (Manual) 5 (0-10) % Eosinophils % (Manual) (0-4) % Platelet Estimate Normal (NORMAL) Polychromasia Slight Hypochromasia (manual) Anisocytosis (manual) Slight Ovalocytes Speed Cells Moderate PT (9.7-12.2) SECONDS INR APTT (21-34) SECONDS Sodium 130 L 128 L (132-148) mmol/L Potassium 2.8 L 2.1 L* D (3.6-5.2) mmol/L Chloride 104 101 (98-107) mmol/L Carbon Dioxide 11 L* 13 L (22-30) mmol/L Anion Gap 17 16 (10-20) BUN 26 H 25 H (7-17) mg/dL Creatinine 2.6 H 2.6 H (0.7-1.2) mg/dL Est GFR ( Amer) 23 23 Est GFR (Non-Af Amer) 19 19 Random Glucose 113 H 119 H (65-105) mg/dL Calcium 5.6 L* 5.5 L* (8.6-10.4) mg/dl Phosphorus 3.0 3.7 (2.5-4.5) mg/dL Magnesium 1.7 1.0 L* D (1.6-2.3) mg/dL Total Bilirubin 1.2 1.5 H (0.2-1.3) mg/dL AST 23 13 L (14-36) U/L ALT 29 24 (9-52) U/L Alkaline Phosphatase 79 65 (38-126) U/L Total Creatine Kinase (30-135) U/L Troponin I (0.00-0.120) ng/mL Total Protein 4.5 L 4.6 L (6.3-8.3) g/dL Albumin 1.9 L 1.9 L (3.5-5.0) g/dL Globulin 2.6 2.7 (2.2-3.9) gm/dL Albumin/Globulin Ratio 0.7 L 0.7 L (1.0-2.1) Lipase (23-300) U/L Urine Color (YELLOW) Urine Clarity (Clear) Urine pH (5.0-8.0) Ur Specific [place] (1.003-1.030) Urine Protein (NEGATIVE) mg/dL Urine Glucose (UA) (Normal) mg/dL Urine Ketones (NEGATIVE) mg/dL Urine Blood (NEGATIVE) Urine Nitrate (NEGATIVE) Urine Bilirubin (NEGATIVE) Urine Urobilinogen (0.2-1.0) mg/dL Ur Leukocyte Esterase (Negative) [place]/uL Urine WBC (Auto) (0-5) /hpf Urine RBC (Auto) (0-3) /hpf Ur Squamous Epith Cells (0-5) /hpf Urine Bacteria (<OCC) Urine Yeast (Budding) (NEGATIVE) /hpf 08/31/18 08/31/18 08/31/18 Range/Units 20:08 12:45 12:32 WBC (4.8-10.8) K/uL RBC (3.80-5.20) Mil/uL Hgb (11.0-16.0) g/dL Hct (34.0-47.0) % MCV (81.0-99.0) fL MCH (27.0-31.0) pg MCHC (33.0-37.0) g/dL RDW (11.5-14.5) % Plt Count (130-400) K/uL MPV (7.2-11.7) fL Neut % (Auto) (50.0-75.0) % Lymph % (Auto) (20.0-40.0) % [place] % (Auto) (0.0-10.0) % Eos % (Auto) (0.0-4.0) % Baso % (Auto) (0.0-2.0) % Neut # (Auto) (1.8-7.0) K/uL Lymph # (Auto) (1.0-4.3) K/uL [place] # (Auto) (0.0-0.8) K/uL Eos # (Auto) (0.0-0.7) K/uL Baso # (Auto) (0.0-0.2) K/uL Neutrophils % (Manual) (50-75) % Band Neutrophils % (0-2) % Lymphocytes % (Manual) (20-40) % Monocytes % (Manual) (0-10) % Eosinophils % (Manual) (0-4) % Platelet Estimate (NORMAL) Polychromasia Hypochromasia (manual) Anisocytosis (manual) Ovalocytes Steph Cells PT 25.5 H 26.1 H (9.7-12.2) SECONDS INR 2.3 2.4 APTT 34 (21-34) SECONDS Sodium 129 L (132-148) mmol/L Potassium 1.2 L* (3.6-5.2) mmol/L Chloride 98 (98-107) mmol/L Carbon Dioxide 15 L (22-30) mmol/L Anion Gap 17 (10-20) BUN 25 H (7-17) mg/dL Creatinine 2.5 H (0.7-1.2) mg/dL Est GFR ( Amer) 24 Est GFR (Non-Af Amer) 20 Random Glucose 93 (65-105) mg/dL Calcium 5.6 L* (8.6-10.4) mg/dl Phosphorus (2.5-4.5) mg/dL Magnesium (1.6-2.3) mg/dL Total Bilirubin 1.7 H (0.2-1.3) mg/dL AST 13 L D (14-36) U/L ALT 27 (9-52) U/L Alkaline Phosphatase 53 (38-126) U/L Total Creatine Kinase 23 L (30-135) U/L Troponin I 0.1750 H* (0.00-0.120) ng/mL Total Protein 4.4 L (6.3-8.3) g/dL Albumin 1.9 L (3.5-5.0) g/dL Globulin 2.5 (2.2-3.9) gm/dL Albumin/Globulin Ratio 0.7 L (1.0-2.1) Lipase 56 (23-300) U/L Urine Color (YELLOW) Urine Clarity (Clear) Urine pH (5.0-8.0) Ur Specific [place] (1.003-1.030) Urine Protein (NEGATIVE) mg/dL Urine Glucose (UA) (Normal) mg/dL Urine Ketones (NEGATIVE) mg/dL Urine Blood (NEGATIVE) Urine Nitrate (NEGATIVE) Urine Bilirubin (NEGATIVE) Urine Urobilinogen (0.2-1.0) mg/dL Ur Leukocyte Esterase (Negative) [place]/uL Urine WBC (Auto) (0-5) /hpf Urine RBC (Auto) (0-3) /hpf Ur Squamous Epith Cells (0-5) /hpf Urine Bacteria (<OCC) Urine Yeast (Budding) (NEGATIVE) /hpf 08/31/18 08/31/18 08/31/18 Range/Units 11:08 11:08 10:42 WBC 14.0 H D (4.8-10.8) K/uL RBC 2.77 L (3.80-5.20) Mil/uL Hgb 8.8 L (11.0-16.0) g/dL Hct 24.4 L (34.0-47.0) % MCV 87.9 D (81.0-99.0) fL MCH 31.6 H (27.0-31.0) pg MCHC 35.9 (33.0-37.0) g/dL RDW 15.5 H (11.5-14.5) % Plt Count 306 D (130-400) K/uL MPV 8.5 (7.2-11.7) fL Neut % (Auto) 87.9 H (50.0-75.0) % Lymph % (Auto) 6.7 L (20.0-40.0) % [place] % (Auto) 4.2 (0.0-10.0) % Eos % (Auto) 0.6 (0.0-4.0) % Baso % (Auto) 0.6 (0.0-2.0) % Neut # (Auto) 12.3 H (1.8-7.0) K/uL Lymph # (Auto) 0.9 L (1.0-4.3) K/uL [place] # (Auto) 0.6 (0.0-0.8) K/uL Eos # (Auto) 0.1 (0.0-0.7) K/uL Baso # (Auto) 0.1 (0.0-0.2) K/uL Neutrophils % (Manual) 90 H (50-75) % Band Neutrophils % (0-2) % Lymphocytes % (Manual) 5 L (20-40) % Monocytes % (Manual) 3 (0-10) % Eosinophils % (Manual) 2 (0-4) % Platelet Estimate Normal (NORMAL) Polychromasia Slight Hypochromasia (manual) Slight Anisocytosis (manual) Slight Ovalocytes Slight Steph Cells Moderate PT (9.7-12.2) SECONDS INR APTT (21-34) SECONDS Sodium 126 L (132-148) mmol/L Potassium 1.1 L* D (3.6-5.2) mmol/L Chloride 96 L (98-107) mmol/L Carbon Dioxide 15 L (22-30) mmol/L Anion Gap 16 (10-20) BUN 26 H (7-17) mg/dL Creatinine 2.5 H (0.7-1.2) mg/dL Est GFR ( Amer) 24 Est GFR (Non-Af Amer) 20 Random Glucose 92 (65-105) mg/dL Calcium 5.9 L* D (8.6-10.4) mg/dl Phosphorus (2.5-4.5) mg/dL Magnesium (1.6-2.3) mg/dL Total Bilirubin 2.3 H (0.2-1.3) mg/dL AST 17 (14-36) U/L ALT 27 (9-52) U/L Alkaline Phosphatase 71 (38-126) U/L Total Creatine Kinase 28 L (30-135) U/L Troponin I 0.1810 H* (0.00-0.120) ng/mL Total Protein 4.6 L (6.3-8.3) g/dL Albumin 2.0 L D (3.5-5.0) g/dL Globulin 2.7 (2.2-3.9) gm/dL Albumin/Globulin Ratio 0.7 L (1.0-2.1) Lipase 61 (23-300) U/L Urine Color Yellow (YELLOW) Urine Clarity Hazy (Clear) Urine pH 6.0 (5.0-8.0) Ur Specific [place] 1.009 (1.003-1.030) Urine Protein Negative (NEGATIVE) mg/dL Urine Glucose (UA) Normal (Normal) mg/dL Urine Ketones Negative (NEGATIVE) mg/dL Urine Blood 1+ H (NEGATIVE) Urine Nitrate Negative (NEGATIVE) Urine Bilirubin Negative (NEGATIVE) Urine Urobilinogen Normal (0.2-1.0) mg/dL Ur Leukocyte Esterase Negative (Negative) [place]/uL Urine WBC (Auto) 1 (0-5) /hpf Urine RBC (Auto) 2 (0-3) /hpf Ur Squamous Epith Cells 9 H (0-5) /hpf Urine Bacteria Rare (<OCC) Urine Yeast (Budding) Few H (NEGATIVE) /hpf Laboratory Results - last 24 hr 08/31/18 08/31/18 08/31/18 10:42 11:08 11:08 WBC 14.0 H D RBC 2.77 L Hgb 8.8 L Hct 24.4 L MCV 87.9 D MCH 31.6 H MCHC 35.9 RDW 15.5 H Plt Count 306 D MPV 8.5 Neut % (Auto) 87.9 H Lymph % (Auto) 6.7 L [place] % (Auto) 4.2 Eos % (Auto) 0.6 Baso % (Auto) 0.6 Neut # (Auto) 12.3 H Lymph # (Auto) 0.9 L [place] # (Auto) 0.6 Eos # (Auto) 0.1 Baso # (Auto) 0.1 Neutrophils % (Manual) 90 H Band Neutrophils % Lymphocytes % (Manual) 5 L Monocytes % (Manual) 3 Eosinophils % (Manual) 2 Platelet Estimate Normal Polychromasia Slight Hypochromasia (manual) Slight Anisocytosis (manual) Slight Ovalocytes Slight Steph Cells Moderate PT INR APTT Sodium 126 L Potassium 1.1 L* D Chloride 96 L Carbon Dioxide 15 L Anion Gap 16 BUN 26 H Creatinine 2.5 H Est GFR ( Amer) 24 Est GFR (Non-Af Amer) 20 Random Glucose 92 Calcium 5.9 L* D Phosphorus Magnesium Total Bilirubin 2.3 H AST 17 ALT 27 Alkaline Phosphatase 71 Total Creatine Kinase 28 L Troponin I 0.1810 H* Total Protein 4.6 L Albumin 2.0 L D Globulin 2.7 Albumin/Globulin Ratio 0.7 L Lipase 61 Urine Color Yellow Urine Clarity Hazy Urine pH 6.0 Ur Specific [place] 1.009 Urine Protein Negative Urine Glucose (UA) Normal Urine Ketones Negative Urine Blood 1+ H Urine Nitrate Negative Urine Bilirubin Negative Urine Urobilinogen Normal Ur Leukocyte Esterase Negative Urine WBC (Auto) 1 Urine RBC (Auto) 2 Ur Squamous Epith Cells 9 H Urine Bacteria Rare Urine Yeast (Budding) Few H 08/31/18 08/31/18 08/31/18 12:32 12:45 20:08 WBC RBC Hgb Hct MCV MCH MCHC RDW Plt Count MPV Neut % (Auto) Lymph % (Auto) [place] % (Auto) Eos % (Auto) Baso % (Auto) Neut # (Auto) Lymph # (Auto) [place] # (Auto) Eos # (Auto) Baso # (Auto) Neutrophils % (Manual) Band Neutrophils % Lymphocytes % (Manual) Monocytes % (Manual) Eosinophils % (Manual) Platelet Estimate Polychromasia Hypochromasia (manual) Anisocytosis (manual) Ovalocytes Steph Cells PT 26.1 H 25.5 H INR 2.4 2.3 APTT 34 Sodium 129 L Potassium 1.2 L* Chloride 98 Carbon Dioxide 15 L Anion Gap 17 BUN 25 H Creatinine 2.5 H Est GFR ( Amer) 24 Est GFR (Non-Af Amer) 20 Random Glucose 93 Calcium 5.6 L* Phosphorus Magnesium Total Bilirubin 1.7 H AST 13 L D ALT 27 Alkaline Phosphatase 53 Total Creatine Kinase 23 L Troponin I 0.1750 H* Total Protein 4.4 L Albumin 1.9 L Globulin 2.5 Albumin/Globulin Ratio 0.7 L Lipase 56 Urine Color Urine Clarity Urine pH Ur Specific [place] Urine Protein Urine Glucose (UA) Urine Ketones Urine Blood Urine Nitrate Urine Bilirubin Urine Urobilinogen Ur Leukocyte Esterase Urine WBC (Auto) Urine RBC (Auto) Ur Squamous Epith Cells Urine Bacteria Urine Yeast (Budding) 08/31/18 09/01/18 09/01/18 20:08 05:56 05:56 WBC 18.4 H RBC 2.46 L Hgb 7.7 L Hct 21.9 L MCV 89.3 MCH 31.2 H MCHC 34.9 RDW 15.9 H Plt Count 283 MPV 8.6 Neut % (Auto) 87.7 H Lymph % (Auto) 6.4 L [place] % (Auto) 4.2 Eos % (Auto) 0.6 Baso % (Auto) 1.1 Neut # (Auto) 16.1 H Lymph # (Auto) 1.2 [place] # (Auto) 0.8 Eos # (Auto) 0.1 Baso # (Auto) 0.2 Neutrophils % (Manual) 84 H Band Neutrophils % 4 H Lymphocytes % (Manual) 7 L Monocytes % (Manual) 5 Eosinophils % (Manual) Platelet Estimate Normal Polychromasia Slight Hypochromasia (manual) Anisocytosis (manual) Slight Ovalocytes Steph Cells Moderate PT INR APTT Sodium 128 L 130 L Potassium 2.1 L* D 2.8 L Chloride 101 104 Carbon Dioxide 13 L 11 L* Anion Gap 16 17 BUN 25 H 26 H Creatinine 2.6 H 2.6 H Est GFR ( Amer) 23 23 Est GFR (Non-Af Amer) 19 19 Random Glucose 119 H 113 H Calcium 5.5 L* 5.6 L* Phosphorus 3.7 3.0 Magnesium 1.0 L* D 1.7 Total Bilirubin 1.5 H 1.2 AST 13 L 23 ALT 24 29 Alkaline Phosphatase 65 79 Total Creatine Kinase Troponin I Total Protein 4.6 L 4.5 L Albumin 1.9 L 1.9 L Globulin 2.7 2.6 Albumin/Globulin Ratio 0.7 L 0.7 L Lipase Urine Color Urine Clarity Urine pH Ur Specific [place] Urine Protein Urine Glucose (UA) Urine Ketones Urine Blood Urine Nitrate Urine Bilirubin Urine Urobilinogen Ur Leukocyte Esterase Urine WBC (Auto) Urine RBC (Auto) Ur Squamous Epith Cells Urine Bacteria Urine Yeast (Budding) EKG/Cardiology Studies: Cardiology / EKG Studies 08/31/18 10:42 ELECTROCARDIOGRAM Stat Comment: Mode Of Transportation: BED Reason For Exam: chest pain Critical Care Progress Note - Nutrition Nutrition: Nutrition Category Date Time Status Heart Healthy Diet [DIET] Diets 09/01/18 Breakfast Active Assessment/Plan - Assessment and Plan (Free Text) Assessment: This is a 62-year-old female with PMH of renal insufficiency, hypertnesion, hyperlipidemia, and depression who was recently seen at [facility] for possible acute endocarditis. Today she presents for dizziness and hypotension. Patient was found to have hypokalemia in the ED (K+=1.1), and potassium is currently being repleted. Patient is being accepted to ICU for close monitoring and further treatment. Neuro: - Patient A&O x3 - Monitor neuro checks CV: - History of possible acute endocarditis with Staph infection - EKG abnormal with sinus tachycardia and right atrial enlargement Pulm: - No acute issues - Monitor - Maintain O2 sat > 92% - O2 PRN 2L NC GI: - CT ABD/ Pelvis: Gallbladder distention. No calcified gallstones. Coarse hepatic calcifications. Renal: - Renal insufficiency with anasarca - Dr. Hernandez consulted; recommendations appreciated - Severe hypokalemia, improved K+=2.8 (symptomatic) - Currently being treated with PO repletion of potassium - magnesium low; repleted and corrected - Monitor CMP with Mg, Phos ID: - History of endocarditis - Dr. Grant consulted; recommendations appreciated - Patient was getting IV antibiotics via PICC line as outpatient - Worsening Leukocytosis WBC=18.4 - IVF Heme: - Normocytic anemia; chronic - No acute issues - Monitor H/H MSK: - CT ABD/Pelvis: Multple compression fracture deformities (most severe L1); please see full report Patient seen and case discussed in detail with Dr. Marc PGY1 Rajinder Shabazz <Kalie Marc - Last Filed: 09/02/18 18:54> CCU Objective - Vital Signs / Intake & Output Vital Signs (Last 4 hours): Vital Signs Temp Pulse Resp BP Pulse Ox 09/02/18 18:40 98.2 F 116 H 22 127/70 09/02/18 17:50 98.0 F 119 H 20 119/67 09/02/18 17:40 119 H 18 120/69 98 09/02/18 17:25 116 H 20 116/63 97 09/02/18 17:10 117 H 16 120/67 99 09/02/18 17:00 118 H 17 98 09/02/18 16:55 115 H 17 110/66 98 09/02/18 16:50 98.0 F 115 H 22 126/71 09/02/18 16:40 119 H 16 126/71 99 09/02/18 16:25 117 H 21 127/74 99 09/02/18 16:10 118 H 18 129/68 98 09/02/18 16:00 98.2 F 119 H 19 99 09/02/18 15:55 118 H 21 123/78 98 09/02/18 15:54 98.0 F 118 H 22 123/78 09/02/18 15:40 118 H 27 H 132/75 97 09/02/18 15:25 140/73 09/02/18 15:24 98.2 F 115 H 21 140/73 09/02/18 15:10 120 H 20 125/68 98 11/09/18 15:09 98.4 F 116 H 21 125/68 09/02/18 15:00 119 H 21 98 09/02/18 14:56 120 H 15 131/72 97 09/02/18 14:54 98.7 F 122 H 22 134/69 Intake and Output (Last 8hrs): Intake & Output 09/02/18 09/02/18 09/02/18 06:59 14:59 22:59 Intake Total 950 1262.5 503.5 Output Total 300 100 40 Balance 650 1162.5 463.5 Weight 213 lb 6.519 oz Intake: Intake, IV Amount 850 782.5 128.5 Left PICC 600 527.5 42.5 Right Wrist 250 255 86 Oral 100 480 0 Blood Product 0 325 Red Blood Cells Cpd As1 0 325 Lr Unit [id number] Other 50 Red Blood Cells Cpd As1 50 Lr Unit [id number] Output: Urine 130 100 40 Urethral ([place]) 130 100 40 Stool 170 Emesis 0 0 - Medications Active Medications: Active Medications Generic Name Dose Route Start Last Admin Trade Name Freq PRN Reason Stop Dose Admin Al Hydrox/Mg Hydrox/Simethicone 30 ml 09/01/18 09:55 09/01/18 10:44 Maalox Plus 30 Ml PO 30 ml Q6H PRN Administration Indigestion / Heartburn Ascorbic Acid 1,000 mg 09/01/18 10:00 09/02/18 09:42 Vitamin C 500 Mg Tab PO 1,000 mg DAILY JOSE Administration Aspirin 81 mg 09/01/18 10:00 09/02/18 09:42 Aspirin Chewable PO 81 mg DAILY JOSE Administration Benztropine Mesylate 1 mg 09/01/18 10:00 09/02/18 09:42 Cogentin PO 1 mg BID JOSE Administration Calcium/Vitamin D 1 tab 09/01/18 12:00 09/02/18 09:43 Oyster Shell Calcium/Vitamin D 500 Mg-200 Iu PO 1 tab BID JOSE Administration Epoetin Morales 10,000 unit 09/01/18 12:00 09/01/18 12:00 Procrit SC 10,000 unit TTS JOSE Administration Ergocalciferol 1 cap 09/01/18 12:00 09/01/18 12:10 Drisdol 50,000 Intl Units Cap PO 1 cap Q7D JOSE Administration Ferrous Gluconate 324 mg 09/01/18 14:00 09/02/18 13:12 Fergon PO 324 mg TID JOSE Administration Guaifenesin/Dextromethorphan 5 ml 08/31/18 21:11 09/01/18 13:51 Robitussin Dm PO 5 ml Q4H PRN Administration Cough Haloperidol 5 mg 09/02/18 10:00 09/02/18 10:10 Haldol PO 5 mg BID JOSE Administration Cefazolin Sodium 1,000 mg/ 50 mls @ 100 mls/hr 08/31/18 21:00 09/02/18 13:08 Sodium Chloride IVPB 100 mls/hr Q8H JOSE Administration Protocol Potassium Phosphate 15 mmole/ 255 mls @ 42.5 mls/hr 09/02/18 13:00 09/02/18 13:09 Sodium Chloride IVPB 09/02/18 18:59 42.5 mls/hr ONCE ONE Administration Influenza Virus Vaccine 60 mcg 09/03/18 10:00 Fluzone Quad [id number] IM 09/03/18 10:01 .ONCE ONE Magnesium Oxide 400 mg 09/01/18 11:00 09/02/18 09:42 Mag-Ox PO 400 mg BID JOSE Administration Multivitamins 1 tab 09/01/18 10:45 09/02/18 09:42 Hexavitamin PO 1 tab DAILY JOSE Administration Nystatin 1 applic 09/01/18 10:00 09/02/18 09:46 Nystop Topical Powder TOP 09/15/18 10:01 1 applic BID JOSE Administration Pantoprazole Sodium 40 mg 08/31/18 17:00 09/02/18 09:43 Protonix Ec Tab PO 40 mg DAILY JOSE Administration Pneumococcal Polyvalent Vaccine 0.5 ml 09/03/18 17:08 Pneumovax 23 Vaccine IM 09/03/18 17:09 .ONCE ONE Saliva Substitute 10 ml 09/01/18 10:00 09/02/18 13:11 First Magic Mouthwash PO 10 ml QID JOSE Administration Sodium Bicarbonate 1,300 mg 09/01/18 11:00 09/02/18 13:11 Sodium Bicarbonate Tab PO 1,300 mg TID JOSE Administration Thiamine HCl 100 mg 09/01/18 16:30 09/02/18 09:43 Vitamin B1 Inj IV 100 mg DAILY JOSE Administration Vitamin A 0.5 ea 08/31/18 16:00 09/02/18 11:53 Vitamin A & D Oint Ud Foilpak TOP 0.5 ea Q4 JOSE Administration Zinc Sulfate 220 mg 09/01/18 10:00 09/02/18 09:42 Zinc Sulfate 220 Mg Cap PO 220 mg DAILY JOSE Administration - Patient Studies Lab Studies: Microbiology Studies 09/01/18 12:45 Urine Culture - Preliminary Urine,Catheterized Gram Negative Faisal 08/31/18 21:36 Blood Culture - Preliminary Blood-Venous NO GROWTH AFTER 24 HOURS 08/31/18 21:36 Blood Culture - Preliminary Blood-Venous NO GROWTH AFTER 24 HOURS 08/31/18 20:08 MRSA Culture (Admit) - Final Naris MRSA NOT DETECTED Lab Studies 09/02/18 09/02/18 09/02/18 Range/Units 08:14 07:56 07:56 WBC 11.9 H (4.8-10.8) K/uL RBC 1.87 L (3.80-5.20) Mil/uL Hgb 5.8 L* (11.0-16.0) g/dL Hct 16.7 L (34.0-47.0) % MCV 89.5 (81.0-99.0) fL MCH 31.2 H (27.0-31.0) pg MCHC 34.9 (33.0-37.0) g/dL RDW 16.4 H (11.5-14.5) % Plt Count 217 (130-400) K/uL MPV 8.5 (7.2-11.7) fL Neut % (Auto) 83.7 H (50.0-75.0) % Lymph % (Auto) 9.4 L (20.0-40.0) % [place] % (Auto) 3.7 (0.0-10.0) % Eos % (Auto) 1.7 (0.0-4.0) % Baso % (Auto) 1.5 (0.0-2.0) % Neut # (Auto) 10.0 H (1.8-7.0) K/uL Lymph # (Auto) 1.1 (1.0-4.3) K/uL [place] # (Auto) 0.4 (0.0-0.8) K/uL Eos # (Auto) 0.2 (0.0-0.7) K/uL Baso # (Auto) 0.2 (0.0-0.2) K/uL Neutrophils % (Manual) (50-75) % Lymphocytes % (Manual) (20-40) % Monocytes % (Manual) (0-10) % Platelet Estimate (NORMAL) Polychromasia Hypochromasia (manual) Anisocytosis (manual) Ovalocytes Speed Cells Sodium (132-148) mmol/L Potassium (3.6-5.2) mmol/L Chloride (98-107) mmol/L Carbon Dioxide (22-30) mmol/L Anion Gap (10-20) BUN (7-17) mg/dL Creatinine (0.7-1.2) mg/dL Est GFR ( Amer) Est GFR (Non-Af Amer) Random Glucose (65-105) mg/dL Calcium (8.6-10.4) mg/dl Phosphorus (2.5-4.5) mg/dL Magnesium (1.6-2.3) mg/dL Total Bilirubin (0.2-1.3) mg/dL AST (14-36) U/L ALT (9-52) U/L Alkaline Phosphatase (38-126) U/L Total Protein (6.3-8.3) g/dL Albumin (3.5-5.0) g/dL Globulin (2.2-3.9) gm/dL Albumin/Globulin Ratio (1.0-2.1) Stool Occult Blood Negative (NEGATIVE) Blood Type O POSITIVE Antibody Screen Negative 09/02/18 09/02/18 Range/Units 06:09 06:09 WBC 11.0 H (4.8-10.8) K/uL RBC 1.71 L (3.80-5.20) Mil/uL Hgb 5.4 L* D (11.0-16.0) g/dL Hct 15.4 L (34.0-47.0) % MCV 90.1 (81.0-99.0) fL MCH 31.7 H (27.0-31.0) pg MCHC 35.2 (33.0-37.0) g/dL RDW 16.5 H (11.5-14.5) % Plt Count 200 (130-400) K/uL MPV 8.6 (7.2-11.7) fL Neut % (Auto) 83.8 H (50.0-75.0) % Lymph % (Auto) 9.8 L (20.0-40.0) % [place] % (Auto) 3.8 (0.0-10.0) % Eos % (Auto) 1.7 (0.0-4.0) % Baso % (Auto) 0.9 (0.0-2.0) % Neut # (Auto) 9.2 H (1.8-7.0) K/uL Lymph # (Auto) 1.1 (1.0-4.3) K/uL [place] # (Auto) 0.4 (0.0-0.8) K/uL Eos # (Auto) 0.2 (0.0-0.7) K/uL Baso # (Auto) 0.1 (0.0-0.2) K/uL Neutrophils % (Manual) 88 H (50-75) % Lymphocytes % (Manual) 9 L (20-40) % Monocytes % (Manual) 3 (0-10) % Platelet Estimate Normal (NORMAL) Polychromasia Slight Hypochromasia (manual) Moderate Anisocytosis (manual) Slight Ovalocytes Slight Speed Cells Slight Sodium 132 (132-148) mmol/L Potassium 3.3 L (3.6-5.2) mmol/L Chloride 105 (98-107) mmol/L Carbon Dioxide 16 L (22-30) mmol/L Anion Gap 14 (10-20) BUN 24 H (7-17) mg/dL Creatinine 2.4 H (0.7-1.2) mg/dL Est GFR ( Amer) 25 Est GFR (Non-Af Amer) 20 Random Glucose 118 H (65-105) mg/dL Calcium 6.7 L (8.6-10.4) mg/dl Phosphorus 1.7 L (2.5-4.5) mg/dL Magnesium 1.9 (1.6-2.3) mg/dL Total Bilirubin 0.9 (0.2-1.3) mg/dL AST 11 L D (14-36) U/L ALT 25 (9-52) U/L Alkaline Phosphatase 79 (38-126) U/L Total Protein 4.6 L (6.3-8.3) g/dL Albumin 2.5 L (3.5-5.0) g/dL Globulin 2.1 L (2.2-3.9) gm/dL Albumin/Globulin Ratio 1.2 (1.0-2.1) Stool Occult Blood (NEGATIVE) Blood Type Antibody Screen Laboratory Results - last 24 hr 09/02/18 09/02/18 09/02/18 06:09 06:09 07:56 WBC 11.0 H 11.9 H RBC 1.71 L 1.87 L Hgb 5.4 L* D 5.8 L* Hct 15.4 L 16.7 L MCV 90.1 89.5 MCH 31.7 H 31.2 H MCHC 35.2 34.9 RDW 16.5 H 16.4 H Plt Count 200 217 MPV 8.6 8.5 Neut % (Auto) 83.8 H 83.7 H Lymph % (Auto) 9.8 L 9.4 L [place] % (Auto) 3.8 3.7 Eos % (Auto) 1.7 1.7 Baso % (Auto) 0.9 1.5 Neut # (Auto) 9.2 H 10.0 H Lymph # (Auto) 1.1 1.1 [place] # (Auto) 0.4 0.4 Eos # (Auto) 0.2 0.2 Baso # (Auto) 0.1 0.2 Neutrophils % (Manual) 88 H Lymphocytes % (Manual) 9 L Monocytes % (Manual) 3 Platelet Estimate Normal Polychromasia Slight Hypochromasia (manual) Moderate Anisocytosis (manual) Slight Ovalocytes Slight Steph Cells Slight Sodium 132 Potassium 3.3 L Chloride 105 Carbon Dioxide 16 L Anion Gap 14 BUN 24 H Creatinine 2.4 H Est GFR ( Amer) 25 Est GFR (Non-Af Amer) 20 Random Glucose 118 H Calcium 6.7 L Phosphorus 1.7 L Magnesium 1.9 Total Bilirubin 0.9 AST 11 L D ALT 25 Alkaline Phosphatase 79 Total Protein 4.6 L Albumin 2.5 L Globulin 2.1 L Albumin/Globulin Ratio 1.2 Stool Occult Blood Blood Type Antibody Screen 09/02/18 09/02/18 07:56 08:14 WBC RBC Hgb Hct MCV MCH MCHC RDW Plt Count MPV Neut % (Auto) Lymph % (Auto) [place] % (Auto) Eos % (Auto) Baso % (Auto) Neut # (Auto) Lymph # (Auto) [place] # (Auto) Eos # (Auto) Baso # (Auto) Neutrophils % (Manual) Lymphocytes % (Manual) Monocytes % (Manual) Platelet Estimate Polychromasia Hypochromasia (manual) Anisocytosis (manual) Ovalocytes Speed Cells Sodium Potassium Chloride Carbon Dioxide Anion Gap BUN Creatinine Est GFR ( Amer) Est GFR (Non-Af Amer) Random Glucose Calcium Phosphorus Magnesium Total Bilirubin AST ALT Alkaline Phosphatase Total Protein Albumin Globulin Albumin/Globulin Ratio Stool Occult Blood Negative Blood Type O POSITIVE Antibody Screen Negative Critical Care Progress Note - Nutrition Nutrition: Nutrition Category Date Time Status Dysphagia/Modified Consistency Diet [DIET] Diets 09/02/18 Breakfast Active Assessment/Plan - Assessment and Plan (Free Text) Plan: Patient seen and examiend at bedside PAtient [facility] with fatigue, dehydration and acute on chronic renal failure -Severe metabolic acidosis/ROBIN: continue bi-carb, renal consult -Sepsis: source unknown, patient was being treated for MSSA bacteremia with home IV therapy -dementia: chronic continue dvt/pud ppx -severe malnutrition: encourage oral diet -mouth pain 2nd ulcers: start magic mouth wash/viscous lidocain -continue dvt/pud ppx Patient as severe electrolyte imbalance and will benefit from ICU level care. d/w CIu team Above resident docuemnts my clinical management and physical exam
[2018-09-01] MEDS: Mag&Al/Simet/Diphen/Lido 237 ML KIT PO SCH ×4 (11:34→22:30)
[2018-09-01] MEDS: Sodium Bicarbonate 8.4% 150 MEQ in Dextrose 5% In Water 1,000 ML IV SCH (11:36)
[2018-09-01] MEDS: Multiple Vitamins Tab PO SCH (11:48)
[2018-09-01] MEDS: Magnesium Oxide 400 mg Tab UD PO SCH ×2 (11:48→17:48)
[2018-09-01 11:54] LABS: FOLATE 12.5 ng/mL
[2018-09-01] MEDS ORDERED: Ergocalciferol 50,000 Intl Units Cap PO SCH (12:00)
[2018-09-01] MEDS: Epoetin Alfa 10,000 unit/ml Dialysis SC SCH (12:00)
[2018-09-01] MEDS: Calcium-Vit D 500 mg-200 Units Tab UD PO SCH ×2 (12:42→17:48)
[2018-09-01 13:08] LABS: SQUAMOUS EPITHIAL 4 /hpf (0-5); URINE BACTERIA OCC (<OCC); URINE BILIRUBIN NEGATIVE (NEGATIVE); URINE BLOOD 1+ (NEGATIVE); URINE CLARITY Hazy (Clear); URINE COLOR Yellow (YELLOW); URINE GLUCOSE (UA) NORMAL (Normal); URINE LEUKOCYTE ESTERASE TRACE Leu/uL (Negative); URINE PROTEIN 1+ mg/dL (NEGATIVE); URINE UROBILINOGEN NORMAL mg/dL (0.2-1.0)
[2018-09-01] MEDS: guaiFENesin DM 100 mg-10 mg/5 ml UD PO PRN (13:51)
[2018-09-01 14:43] LABS: CREATININE, RANDOM URINE 99.4 mg/dL
[2018-09-01 15:17] LABS: ALB/GLOB RATIO 0.9 (1.0-2.1); ALBUMIN 2.2 g/dL (3.5-5.0); CALCIUM 6.6 mg/dl (8.6-10.4)
--- NOTE | 2018-09-01 15:34 | CP.PCM.CON ---
History of Present Illness - History of Present Illness History of Present Illness: Nephrology Consultation Note Assessment: critical Acute Kidney Injury (N17.9) likely due to ATN and pre-renal state: recent work up for GN neg HAGMA with ketonemia likely due to ROBIN and ketoacidosis hypovolemic hyponatremia, Hypokalemia, hypocalcemia and hypomagnesemia likely due to GI (due to diarrhoea) and renal loss (was on lasix) with limited oral intake severe hypoalbuminemia with malnutration with anasarca Hypertensive Chronic Kidney Disease (I12.9) Chronic Kidney Disease (N18.9) Stage 3 with 55 mg albuminuria Anemia (D64.9) severe Mitral regurg with infective endocarditis, depression/Anxiety Plan No acute need for dialysis Maintain hemodynamics stable. Avoid hypotension. Patient not on ACEI/ARB due to recent ROBIN Monitor Input/Output, daily weights and renal function with basic metabolic panel started Fe, MVI, and weekly Vit D, OScal D added bicarb supplements. PRBC as needed supplement lytes as needed agree with IV albumin. Dietary consult. added thiamine as well. avoid correction in serum Na >6-8 meq/24 hrs. work up as ordered Dose meds/antibiotics for reduced GFR. Avoid fleets enema. Avoid nephrotoxins/NSAIDs/ iodinated contrast (unless needed emergently) Glycemic control Further work up for as per primary team Thanks for allowing me to participate in care of your patient. Will follow patient with you. Please call if any Qs. had d/w team Dr Heriberto Hernandez Office: [phone] CC: i am nervous reason for consult; ROBIN and electrolytes abnormalities HPI: pt is a 62 F with hx of HTN, depression who was recently admitted to [facility] with ROBIN required few session of HD then improved with cr 1.2, also with infective endocarditis with severe MR but pt refused surgery and decided only for IV antibiotics treatments came as was feeling weak, found to have severe electrolytes depletion and renal consult for ROBIN. pt feels nervous. reports decreased oral intake and c.o loose stool besides that not providing much hx nor recent Iv contrast. noted low BP ROS: pt c/o loose stool and feels nervous. due to her medical condition, she is not able to provide much of ROS Physical Examination: General Appearance: uncomfortable, in no acute respiratory distress, ill appearing and debilitated Vitals reviewed and noted as below Head; Atraumatic, normocephalic ENT: WNL EYES: Pupils are equal, round and reactive to light accommodation. Eye muscles and extraocular movement intact. Sclera is anicteric. Neck; supple no lymphadenopathy, no thyromegaly or bruit Lungs: Normal respiratory rate/effort. Breath sounds b/l decreased at bses Heart: Increased rate. s1s2 normal. No rub or gallop. SM + at apex/LSB Extremities: 2-3+ edema with anasarca. No varicose veins Neurological: Patient is alert awake oriented follow commands Skin: Warm and dry. Normal turgor. No rash. Palpitation: Normal elasticity for age. multiple skin echymoses + Abdomen: Abdomen is soft. Bowel sounds +. There is no abdominal tenderness, no guarding/rigidity no organomegaly Psych: limited insight. anxious MSK: no joint tenderness or swelling. Digits and nails normal, no deformity : kidney or bladder not palpable access: none Labs/imaging reviewed. Past medical history, past surgical history, family history, social history, allergy reviewed and noted as below Family hx: no hx of CKD. Rest non-contributory work up: Hep B/C/HIV neg renal imaging: unremarkable A1c 5.5% UA no protein 1+ blood LINDSEY/ANCA neg, K/L ratio WNLTSAT 9% ferritin 221 Vit D <12.8 PTH 268 FENa 0.3% TTKG 15 Past Patient History - Past Medical History & Family History Past Medical History?: Yes - Past Social History Smoking Status: Never Smoked - CARDIAC Hx Hypercholesterolemia: Yes Hx Hypertension: Yes - PULMONARY Hx Pneumonia: Yes - RENAL Hx Renal Failure: Yes - MUSCULOSKELETAL/RHEUMATOLOGICAL Hx Falls: No - GENITOURINARY/GYNECOLOGICAL Hx Incontinence: Yes - PSYCHIATRIC Hx Depression: Yes Hx Substance Use: No (unknown) - SURGICAL HISTORY Hx Section: Yes - ANESTHESIA Hx Anesthesia: No Hx Anesthesia Reactions: No Hx Malignant Hyperthermia: No Meds Allergies/Adverse Reactions: Allergies Allergy/AdvReac Type Severity Reaction Status Date / Time No Known Allergies Allergy Verified 07/31/18 15:33 - Medications Medications: Current Medications Al Hydrox/Mg Hydrox/Simethicone (Maalox Plus 30 Ml) 30 ml PO Q6H PRN PRN Reason: Indigestion / Heartburn Last Admin: 09/01/18 10:44 Dose: 30 ml Albumin Human (Albumin Human 25% (12.5 Gm/50 Ml)) 25 gm IV Q6H [facility] Stop: 09/02/18 04:46 Last Admin: 09/01/18 10:45 Dose: 25 gm Ascorbic Acid (Vitamin C 500 Mg Tab) 1,000 mg PO DAILY [facility] Last Admin: 09/01/18 10:09 Dose: 1,000 mg Aspirin (Aspirin Chewable) 81 mg PO DAILY [facility] Last Admin: 09/01/18 09:20 Dose: 81 mg Benztropine Mesylate (Cogentin) 1 mg PO BID [facility] Last Admin: 09/01/18 10:09 Dose: 1 mg Calcium/Vitamin D (Oyster Shell Calcium/Vitamin D 500 Mg-200 Iu) 1 tab PO BID [facility] Last Admin: 09/01/18 12:42 Dose: 1 tab Epoetin Morales (Procrit) 10,000 unit SC TTS [facility] Last Admin: 09/01/18 12:00 Dose: 10,000 unit Ergocalciferol (Drisdol 50,000 Intl Units Cap) 1 cap PO Q7D [facility] Last Admin: 09/01/18 12:10 Dose: 1 cap Ferrous Gluconate (Fergon) 324 mg PO TID [facility] Last Admin: 09/01/18 13:50 Dose: 324 mg Guaifenesin/Dextromethorphan (Robitussin Dm) 5 ml PO Q4H PRN PRN Reason: Cough Last Admin: 09/01/18 13:51 Dose: 5 ml Heparin Sodium (Porcine) (Heparin) 5,000 units SC Q8 [facility] Last Admin: 09/01/18 13:50 Dose: 5,000 units Cefazolin Sodium 1,000 mg/ (Sodium Chloride) 50 mls @ 100 mls/hr IVPB Q8H [facility]; Protocol Last Admin: 09/01/18 13:37 Dose: 100 mls/hr Sodium Bicarbonate 150 meq/ (Dextrose) 1,150 mls @ 75 mls/hr IV .[id number] [facility] Last Admin: 09/01/18 11:36 Dose: 75 mls/hr Magnesium Oxide (Mag-Ox) 400 mg PO BID [facility] Last Admin: 09/01/18 11:48 Dose: 400 mg Multivitamins (Hexavitamin) 1 tab PO DAILY [facility] Last Admin: 09/01/18 11:48 Dose: 1 tab Nystatin (Nystop Topical Powder) 1 applic TOP BID [facility] Stop: 09/15/18 10:01 Last Admin: 09/01/18 12:05 Dose: 1 applic Pantoprazole Sodium (Protonix Ec Tab) 40 mg PO DAILY [facility] Last Admin: 09/01/18 09:20 Dose: 40 mg Pneumococcal Polyvalent Vaccine (Pneumovax 23 Vaccine) 0.5 ml IM .ONCE ONE Stop: 09/03/18 17:09 Potassium Chloride (Potassium Chloride Oral Soln) 60 meq PO Q6H [facility] Last Admin: 09/01/18 10:45 Dose: 60 meq Saliva Substitute (First Magic Mouthwash) 10 ml PO QID [facility] Last Admin: 09/01/18 13:49 Dose: 10 ml Sodium Bicarbonate (Sodium Bicarbonate Tab) 1,300 mg PO TID [facility] Last Admin: 09/01/18 13:50 Dose: 1,300 mg Thiamine HCl (Vitamin B1 Inj) 100 mg IV DAILY [facility] Vitamin A (Vitamin A & D Oint Ud Foilpak) 0.5 ea TOP Q4 [facility] Last Admin: 09/01/18 12:37 Dose: 0.5 ea Zinc Sulfate (Zinc Sulfate 220 Mg Cap) 220 mg PO DAILY [facility] Last Admin: 09/01/18 10:09 Dose: 220 mg Results - Vital Signs Recent Vital Signs: Last Vital Signs Temp 97.6 F 09/01/18 12:00 Pulse 112 H 09/01/18 14:00 Resp 10 L 09/01/18 14:00 BP 129/76 09/01/18 13:29 Pulse Ox 99 09/01/18 14:00 - Labs Result Diagrams: 09/01/18 05:56 09/01/18 14:51 Labs: Laboratory Results - last 24 hr 08/31/18 08/31/18 09/01/18 20:08 20:08 05:56 WBC 18.4 H RBC 2.46 L Hgb 7.7 L Hct 21.9 L MCV 89.3 MCH 31.2 H MCHC 34.9 RDW 15.9 H Plt Count 283 MPV 8.6 Neut % (Auto) 87.7 H Lymph % (Auto) 6.4 L [place] % (Auto) 4.2 Eos % (Auto) 0.6 Baso % (Auto) 1.1 Neut # (Auto) 16.1 H Lymph # (Auto) 1.2 [place] # (Auto) 0.8 Eos # (Auto) 0.1 Baso # (Auto) 0.2 Neutrophils % (Manual) 84 H Band Neutrophils % 4 H Lymphocytes % (Manual) 7 L Monocytes % (Manual) 5 Platelet Estimate Normal Polychromasia Slight Anisocytosis (manual) Slight Steph Cells Moderate PT 25.5 H INR 2.3 Sodium 128 L Potassium 2.1 L* D Chloride 101 Carbon Dioxide 13 L Anion Gap 16 BUN 25 H Creatinine 2.6 H Est GFR ( Amer) 23 Est GFR (Non-Af Amer) 19 Random Glucose 119 H Lactic Acid Calcium 5.5 L* Phosphorus 3.7 Magnesium 1.0 L* D Total Bilirubin 1.5 H AST 13 L ALT 24 Alkaline Phosphatase 65 Total Protein 4.6 L Albumin 1.9 L Globulin 2.7 Albumin/Globulin Ratio 0.7 L Vitamin B12 Folate Cortisol AM Sample Urine Color Urine Clarity Urine pH Ur Specific [place] Urine Protein Urine Glucose (UA) Urine Ketones Urine Blood Urine Nitrate Urine Bilirubin Urine Urobilinogen Ur Leukocyte Esterase Urine WBC (Auto) Urine RBC (Auto) Ur Squamous Epith Cells Urine Bacteria Hyaline Casts Urine Yeast (Budding) Urine Eosinophils Urine Osmolality Ur Random Creatinine Ur Random Sodium Ur Random Potassium Urine Magnesium Salicylates Alcohol, Quantitative B-Hydroxybutyrate C. difficile Ag & Toxin 09/01/18 09/01/18 09/01/18 05:56 10:24 10:24 WBC RBC Hgb Hct MCV MCH MCHC RDW Plt Count MPV Neut % (Auto) Lymph % (Auto) [place] % (Auto) Eos % (Auto) Baso % (Auto) Neut # (Auto) Lymph # (Auto) [place] # (Auto) Eos # (Auto) Baso # (Auto) Neutrophils % (Manual) Band Neutrophils % Lymphocytes % (Manual) Monocytes % (Manual) Platelet Estimate Polychromasia Anisocytosis (manual) Steph Cells PT INR Sodium 130 L Potassium 2.8 L Chloride 104 Carbon Dioxide 11 L* Anion Gap 17 BUN 26 H Creatinine 2.6 H Est GFR ( Amer) 23 Est GFR (Non-Af Amer) 19 Random Glucose 113 H Lactic Acid Calcium 5.6 L* Phosphorus 3.0 Magnesium 1.7 Total Bilirubin 1.2 AST 23 ALT 29 Alkaline Phosphatase 79 Total Protein 4.5 L Albumin 1.9 L Globulin 2.6 Albumin/Globulin Ratio 0.7 L Vitamin B12 > 1000 H Folate 12.5 Cortisol AM Sample Urine Color Urine Clarity Urine pH Ur Specific [place] Urine Protein Urine Glucose (UA) Urine Ketones Urine Blood Urine Nitrate Urine Bilirubin Urine Urobilinogen Ur Leukocyte Esterase Urine WBC (Auto) Urine RBC (Auto) Ur Squamous Epith Cells Urine Bacteria Hyaline Casts Urine Yeast (Budding) Urine Eosinophils Urine Osmolality Ur Random Creatinine Ur Random Sodium Ur Random Potassium Urine Magnesium Salicylates Alcohol, Quantitative B-Hydroxybutyrate C. difficile Ag & Toxin Negative 09/01/18 09/01/18 09/01/18 10:24 11:47 11:47 WBC RBC Hgb Hct MCV MCH MCHC RDW Plt Count MPV Neut % (Auto) Lymph % (Auto) [place] % (Auto) Eos % (Auto) Baso % (Auto) Neut # (Auto) Lymph # (Auto) [place] # (Auto) Eos # (Auto) Baso # (Auto) Neutrophils % (Manual) Band Neutrophils % Lymphocytes % (Manual) Monocytes % (Manual) Platelet Estimate Polychromasia Anisocytosis (manual) Steph Cells PT INR Sodium Potassium Chloride Carbon Dioxide Anion Gap BUN Creatinine Est GFR ( Amer) Est GFR (Non-Af Amer) Random Glucose Lactic Acid Calcium Phosphorus Magnesium Total Bilirubin AST ALT Alkaline Phosphatase Total Protein Albumin Globulin Albumin/Globulin Ratio Vitamin B12 Folate Cortisol AM Sample 51.3 H Urine Color Urine Clarity Urine pH Ur Specific [place] Urine Protein Urine Glucose (UA) Urine Ketones Urine Blood Urine Nitrate Urine Bilirubin Urine Urobilinogen Ur Leukocyte Esterase Urine WBC (Auto) Urine RBC (Auto) Ur Squamous Epith Cells Urine Bacteria Hyaline Casts Urine Yeast (Budding) Urine Eosinophils Urine Osmolality Ur Random Creatinine Ur Random Sodium Ur Random Potassium Urine Magnesium Salicylates < 1.0 Alcohol, Quantitative < 10 B-Hydroxybutyrate 0.38 H C. difficile Ag & Toxin 09/01/18 09/01/18 09/01/18 11:47 12:45 12:45 WBC RBC Hgb Hct MCV MCH MCHC RDW Plt Count MPV Neut % (Auto) Lymph % (Auto) [place] % (Auto) Eos % (Auto) Baso % (Auto) Neut # (Auto) Lymph # (Auto) [place] # (Auto) Eos # (Auto) Baso # (Auto) Neutrophils % (Manual) Band Neutrophils % Lymphocytes % (Manual) Monocytes % (Manual) Platelet Estimate Polychromasia Anisocytosis (manual) Romance Cells PT INR Sodium Potassium Chloride Carbon Dioxide Anion Gap BUN Creatinine Est GFR ( Amer) Est GFR (Non-Af Amer) Random Glucose Lactic Acid 1.2 Calcium Phosphorus Magnesium Total Bilirubin AST ALT Alkaline Phosphatase Total Protein Albumin Globulin Albumin/Globulin Ratio Vitamin B12 Folate Cortisol AM Sample Urine Color Yellow Urine Clarity Hazy Urine pH 6.0 Ur Specific [place] 1.014 Urine Protein 1+ H Urine Glucose (UA) Normal Urine Ketones Negative Urine Blood 1+ H Urine Nitrate Negative Urine Bilirubin Negative Urine Urobilinogen Normal Ur Leukocyte Esterase Trace Urine WBC (Auto) 10 H Urine RBC (Auto) 3 Ur Squamous Epith Cells 4 Urine Bacteria Occ H Hyaline Casts 6-10 H Urine Yeast (Budding) Occ H Urine Eosinophils Urine Osmolality 272 L Ur Random Creatinine 99.4 Ur Random Sodium 16 Ur Random Potassium 50.1 Urine Magnesium 1.5 Salicylates Alcohol, Quantitative B-Hydroxybutyrate C. difficile Ag & Toxin 09/01/18 09/01/18 13:30 14:51 WBC RBC Hgb Hct MCV MCH MCHC RDW Plt Count MPV Neut % (Auto) Lymph % (Auto) [place] % (Auto) Eos % (Auto) Baso % (Auto) Neut # (Auto) Lymph # (Auto) [place] # (Auto) Eos # (Auto) Baso # (Auto) Neutrophils % (Manual) Band Neutrophils % Lymphocytes % (Manual) Monocytes % (Manual) Platelet Estimate Polychromasia Anisocytosis (manual) Steph Cells PT INR Sodium 130 L Potassium 4.8 Chloride 107 Carbon Dioxide 11 L* Anion Gap 16 BUN 24 H Creatinine 2.6 H Est GFR ( Amer) 23 Est GFR (Non-Af Amer) 19 Random Glucose 168 H Lactic Acid Calcium 6.6 L Phosphorus 2.4 L Magnesium 2.0 Total Bilirubin 1.1 AST 15 ALT 27 Alkaline Phosphatase 88 Total Protein 4.7 L Albumin 2.2 L Globulin 2.5 Albumin/Globulin Ratio 0.9 L Vitamin B12 Folate Cortisol AM Sample Urine Color Urine Clarity Urine pH Ur Specific [place] Urine Protein Urine Glucose (UA) Urine Ketones Urine Blood Urine Nitrate Urine Bilirubin Urine Urobilinogen Ur Leukocyte Esterase Urine WBC (Auto) Urine RBC (Auto) Ur Squamous Epith Cells Urine Bacteria Hyaline Casts Urine Yeast (Budding) Urine Eosinophils Negative Urine Osmolality Ur Random Creatinine Ur Random Sodium Ur Random Potassium Urine Magnesium Salicylates Alcohol, Quantitative B-Hydroxybutyrate C. difficile Ag & Toxin
--- NOTE | 2018-09-01 16:14 | CP.PCM.PN ---
Subjective - Date & Time of Evaluation Date of Evaluation: 09/01/18 Time of Evaluation: 11:45 - Subjective Subjective: clinically same Objective - Vital Signs/Intake and Output Vital Signs (last 24 hours): Temp Pulse Resp BP Pulse Ox 97.6 F 112 H 10 L 129/76 99 09/01/18 12:00 09/01/18 14:00 09/01/18 14:00 09/01/18 13:29 09/01/18 14:00 Intake and Output: 09/01/18 09/01/18 06:59 18:59 Intake Total 2355 1240 Output Total 0 70 Balance 2355 1170 - Medications Medications: Current Medications Al Hydrox/Mg Hydrox/Simethicone (Maalox Plus 30 Ml) 30 ml PO Q6H PRN PRN Reason: Indigestion / Heartburn Last Admin: 09/01/18 10:44 Dose: 30 ml Albumin Human (Albumin Human 25% (12.5 Gm/50 Ml)) 25 gm IV Q6H [facility] Stop: 09/02/18 04:46 Last Admin: 09/01/18 15:46 Dose: 25 gm Ascorbic Acid (Vitamin C 500 Mg Tab) 1,000 mg PO DAILY [facility] Last Admin: 09/01/18 10:09 Dose: 1,000 mg Aspirin (Aspirin Chewable) 81 mg PO DAILY [facility] Last Admin: 09/01/18 09:20 Dose: 81 mg Benztropine Mesylate (Cogentin) 1 mg PO BID [facility] Last Admin: 09/01/18 10:09 Dose: 1 mg Calcium/Vitamin D (Oyster Shell Calcium/Vitamin D 500 Mg-200 Iu) 1 tab PO BID [facility] Last Admin: 09/01/18 12:42 Dose: 1 tab Epoetin Morales (Procrit) 10,000 unit SC TTS [facility] Last Admin: 09/01/18 12:00 Dose: 10,000 unit Ergocalciferol (Drisdol 50,000 Intl Units Cap) 1 cap PO Q7D [facility] Last Admin: 09/01/18 12:10 Dose: 1 cap Ferrous Gluconate (Fergon) 324 mg PO TID [facility] Last Admin: 09/01/18 13:50 Dose: 324 mg Guaifenesin/Dextromethorphan (Robitussin Dm) 5 ml PO Q4H PRN PRN Reason: Cough Last Admin: 09/01/18 13:51 Dose: 5 ml Heparin Sodium (Porcine) (Heparin) 5,000 units SC Q8 [facility] Last Admin: 09/01/18 13:50 Dose: 5,000 units Cefazolin Sodium 1,000 mg/ (Sodium Chloride) 50 mls @ 100 mls/hr IVPB Q8H [facility]; Protocol Last Admin: 09/01/18 13:37 Dose: 100 mls/hr Sodium Bicarbonate 150 meq/ (Dextrose) 1,150 mls @ 75 mls/hr IV .[id number] [facility] Last Admin: 09/01/18 11:36 Dose: 75 mls/hr Magnesium Oxide (Mag-Ox) 400 mg PO BID [facility] Last Admin: 09/01/18 11:48 Dose: 400 mg Multivitamins (Hexavitamin) 1 tab PO DAILY [facility] Last Admin: 09/01/18 11:48 Dose: 1 tab Nystatin (Nystop Topical Powder) 1 applic TOP BID [facility] Stop: 09/15/18 10:01 Last Admin: 09/01/18 12:05 Dose: 1 applic Pantoprazole Sodium (Protonix Ec Tab) 40 mg PO DAILY [facility] Last Admin: 09/01/18 09:20 Dose: 40 mg Pneumococcal Polyvalent Vaccine (Pneumovax 23 Vaccine) 0.5 ml IM .ONCE ONE Stop: 09/03/18 17:09 Saliva Substitute (First Magic Mouthwash) 10 ml PO QID [facility] Last Admin: 09/01/18 13:49 Dose: 10 ml Sodium Bicarbonate (Sodium Bicarbonate Tab) 1,300 mg PO TID [facility] Last Admin: 09/01/18 13:50 Dose: 1,300 mg Thiamine HCl (Vitamin B1 Inj) 100 mg IV DAILY [facility] Vitamin A (Vitamin A & D Oint Ud Foilpak) 0.5 ea TOP Q4 [facility] Last Admin: 09/01/18 12:37 Dose: 0.5 ea Zinc Sulfate (Zinc Sulfate 220 Mg Cap) 220 mg PO DAILY [facility] Last Admin: 09/01/18 10:09 Dose: 220 mg - Labs Labs: 09/01/18 05:56 09/01/18 14:51 PT 25.5 SECONDS (9.7-12.2) H 08/31/18 20:08 INR 2.3 08/31/18 20:08 APTT 34 SECONDS (21-34) 08/31/18 12:32 - Constitutional Appears: Well - Head Exam Head Exam: ATRAUMATIC, NORMAL INSPECTION, NORMOCEPHALIC - Eye Exam Eye Exam: EOMI, Normal appearance, PERRL Pupil Exam: NORMAL ACCOMODATION, PERRL - ENT Exam ENT Exam: Mucous Membranes Moist, Normal Exam - Neck Exam Neck Exam: Full ROM, Normal Inspection. absent: Lymphadenopathy - Respiratory Exam Respiratory Exam: Decreased Breath Sounds - Cardiovascular Exam Cardiovascular Exam: REGULAR RHYTHM, +S1, +S2 - GI/Abdominal Exam GI & Abdominal Exam: Soft, Diminished Bowel Sounds - Rectal Exam Rectal Exam: Deferred
[2018-09-01] MEDS: Thiamine 100 mg/ml Inj IV SCH (16:22)
--- NOTE | 2018-09-01 19:39 | CP.PCM.PN ---
Subjective - Date & Time of Evaluation Date of Evaluation: 09/01/18 Time of Evaluation: 09:00 - Subjective Subjective: cultures panding awake alert nad Objective - Vital Signs/Intake and Output Vital Signs (last 24 hours): Temp Pulse Resp BP Pulse Ox 98.4 F 118 H 15 105/59 L 99 09/01/18 16:00 09/01/18 19:00 09/01/18 19:00 09/01/18 18:29 09/01/18 19:00 Intake and Output: 09/01/18 09/02/18 18:59 06:59 Intake Total 2265 75 Output Total 420 5 Balance 1845 70 - Medications Medications: Current Medications Al Hydrox/Mg Hydrox/Simethicone (Maalox Plus 30 Ml) 30 ml PO Q6H PRN PRN Reason: Indigestion / Heartburn Last Admin: 09/01/18 10:44 Dose: 30 ml Albumin Human (Albumin Human 25% (12.5 Gm/50 Ml)) 25 gm IV Q6H [facility] Stop: 09/02/18 04:46 Last Admin: 09/01/18 15:46 Dose: 25 gm Ascorbic Acid (Vitamin C 500 Mg Tab) 1,000 mg PO DAILY [facility] Last Admin: 09/01/18 10:09 Dose: 1,000 mg Aspirin (Aspirin Chewable) 81 mg PO DAILY [facility] Last Admin: 09/01/18 09:20 Dose: 81 mg Benztropine Mesylate (Cogentin) 1 mg PO BID [facility] Last Admin: 09/01/18 17:48 Dose: 1 mg Calcium/Vitamin D (Oyster Shell Calcium/Vitamin D 500 Mg-200 Iu) 1 tab PO BID [facility] Last Admin: 09/01/18 17:48 Dose: 1 tab Epoetin Morales (Procrit) 10,000 unit SC TTS [facility] Last Admin: 09/01/18 12:00 Dose: 10,000 unit Ergocalciferol (Drisdol 50,000 Intl Units Cap) 1 cap PO Q7D [facility] Last Admin: 09/01/18 12:10 Dose: 1 cap Ferrous Gluconate (Fergon) 324 mg PO TID [facility] Last Admin: 09/01/18 17:48 Dose: 324 mg Guaifenesin/Dextromethorphan (Robitussin Dm) 5 ml PO Q4H PRN PRN Reason: Cough Last Admin: 09/01/18 13:51 Dose: 5 ml Heparin Sodium (Porcine) (Heparin) 5,000 units SC Q8 [facility] Last Admin: 09/01/18 13:50 Dose: 5,000 units Cefazolin Sodium 1,000 mg/ (Sodium Chloride) 50 mls @ 100 mls/hr IVPB Q8H [facility]; Protocol Last Admin: 09/01/18 13:37 Dose: 100 mls/hr Sodium Bicarbonate 150 meq/ (Dextrose) 1,150 mls @ 75 mls/hr IV .[id number] [facility] Last Admin: 09/01/18 11:36 Dose: 75 mls/hr Influenza Virus Vaccine (Fluzone Quad [id number]) 60 mcg IM .ONCE ONE Stop: 09/03/18 10:01 Magnesium Oxide (Mag-Ox) 400 mg PO BID [facility] Last Admin: 09/01/18 17:48 Dose: 400 mg Multivitamins (Hexavitamin) 1 tab PO DAILY [facility] Last Admin: 09/01/18 11:48 Dose: 1 tab Nystatin (Nystop Topical Powder) 1 applic TOP BID [facility] Stop: 09/15/18 10:01 Last Admin: 09/01/18 17:49 Dose: 1 applic Pantoprazole Sodium (Protonix Ec Tab) 40 mg PO DAILY [facility] Last Admin: 09/01/18 09:20 Dose: 40 mg Pneumococcal Polyvalent Vaccine (Pneumovax 23 Vaccine) 0.5 ml IM .ONCE ONE Stop: 09/03/18 17:09 Saliva Substitute (First Magic Mouthwash) 10 ml PO QID [facility] Last Admin: 09/01/18 17:49 Dose: 10 ml Sodium Bicarbonate (Sodium Bicarbonate Tab) 1,300 mg PO TID [facility] Last Admin: 09/01/18 17:48 Dose: 1,300 mg Thiamine HCl (Vitamin B1 Inj) 100 mg IV DAILY [facility] Last Admin: 09/01/18 16:22 Dose: 100 mg Vitamin A (Vitamin A & D Oint Ud Foilpak) 0.5 ea TOP Q4 [facility] Last Admin: 09/01/18 16:23 Dose: 0.5 ea Zinc Sulfate (Zinc Sulfate 220 Mg Cap) 220 mg PO DAILY [facility] Last Admin: 09/01/18 10:09 Dose: 220 mg - Labs Labs: 09/01/18 05:56 09/01/18 14:51 PT 25.5 SECONDS (9.7-12.2) H 08/31/18 20:08 INR 2.3 08/31/18 20:08 APTT 34 SECONDS (21-34) 08/31/18 12:32 - Constitutional Appears: Non-toxic, Chronically Ill - Head Exam Head Exam: NORMOCEPHALIC - Eye Exam Eye Exam: PERRL - ENT Exam ENT Exam: Mucous Membranes Dry - Neck Exam Neck Exam: absent: Lymphadenopathy - Respiratory Exam Respiratory Exam: Decreased Breath Sounds - Cardiovascular Exam Cardiovascular Exam: REGULAR RHYTHM - GI/Abdominal Exam GI & Abdominal Exam: Distended - Rectal Exam Rectal Exam: Deferred - Exam Exam: NORMAL INSPECTION - Extremities Exam Extremities Exam: Pedal Edema - Back Exam Back Exam: absent: CVA tenderness (L), CVA tenderness (R) Assessment and Plan (1) Leukocytosis Status: Acute (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
--- NOTE | 2018-09-01 21:51 | CARD ---
APPROVED REPORT Date of service: 08/31/2018 EKG Measurement Heart [id number] <Conclusion> Sinus tachycardia Possible Left atrial enlargement ST & T wave abnormality, consider inferior ischemia Abnormal ECG
[2018-09-02] MEDS: Vitamins A & D Oint UD Foilpak TOP SCH ×6 (00:29→20:30)
[2018-09-02] MEDS: Sodium Bicarbonate 8.4% 150 MEQ in Dextrose 5% In Water 1,000 ML IV SCH (05:06)
[2018-09-02 06:17] LABS: BASO # 0.1 K/uL (0.0-0.2); BASO % 0.9 % (0.0-2.0); EOS # 0.2 K/uL (0.0-0.7); EOS % 1.7 % (0.0-4.0); LYMPH # 1.1 K/uL (1.0-4.3); LYMPH % 9.8 % (20.0-40.0); MEAN CELL VOLUME 90.1 fL (81.0-99.0); MEAN CORPUSCULAR HEMOGLOBIN 31.7 pg (27.0-31.0); MEAN CORPUSCULAR HGB CONC 35.2 g/dL (33.0-37.0); MEAN PLATELET VOLUME 8.6 fL (7.2-11.7); MONO # 0.4 K/uL (0.0-0.8); MONO % 3.8 % (0.0-10.0); NEUT # 9.2 K/uL (1.8-7.0); NEUT % 83.8 % (50.0-75.0); NRBC % 0.1 % (0.0-2.0); PLATELET COUNT 200 K/uL (130-400); RBC 1.71 Mil/uL (3.80-5.20); RED CELL DISTRIBUTION WIDTH 16.5 % (11.5-14.5)
[2018-09-02 06:29] LABS: HEMOGLOBIN 5.4 g/dL (11.0-16.0)
[2018-09-02 06:36] LABS: ALB/GLOB RATIO 1.2 (1.0-2.1); ALBUMIN 2.5 g/dL (3.5-5.0); CALCIUM 6.7 mg/dl (8.6-10.4)
[2018-09-02] MEDS: Albumin Human 25% (12.5 gm/50 ml) IV SCH (06:57)
--- NOTE | 2018-09-02 07:57 | CP.CCUPN ---
<Rajinder Shabazz - Last Filed: 09/02/18 11:34> CCU Subjective - Physician Review Events Since Last Encounter (Free Text): 09/02/18 07:57 No acute events overnight Subjective (Free Text): 09/02/18 07:50 PGY1 Critical Care Progress Note for Dr. Marc Patient was seen and evaluated at bedside this morning. Patient is alert but is confused. Patient stating: "nurses are holding me against my will please help me." Patient reassured that she is able to leave, however she would be leaving against medical advice. Patient's son was called to notify him about the patient's hemoglobin levels and need for blood transfusion, however patient's s on refused at this time; stated that "Let her body heal without transfusions or surgery, and call me if she gets worse." Risks and benefits were explained to patient's son (next of kin). Patient's son interrupted and stated he knows all the risks and benefits and is refusing at this time. Will recheck H/H afternoon and will continue to monitor patient closely. 09/02/18 08:20 Patient's son called back stating he is approving of the transfusion of blood products. Consent was received witnessed by 2 nurses. Critical Care Time Spent (in minutes): 35 CCU Objective - Vital Signs / Intake & Output Intake and Output (Last 8hrs): Intake & Output 09/01/18 09/02/18 09/02/18 22:59 06:59 14:59 Intake Total 775 Output Total 355 Balance 420 Intake: Intake, IV Amount 475 Left PICC 375 Left Proximal Port PICC 100 Oral 300 Output: Urine 55 Urethral ([place]) 55 Stool 300 - Physical Exam Head: Positive for: Atraumatic, Normocephalic Pupils: Positive for: PERRL Extroacular Muscles: Positive for: EOMI Conjunctiva: Positive for: Normal Mouth: Positive for: Dry (oral mucosa lesions and tenderness when asked to open mouth and stick out tongue ), Normal Tounge (tenderness). Negative for: Moist Mucous Membranes Nose (External): Positive for: Atraumatic Nose (Internal): Positive for: Normal Inspection Neck: Positive for: Normal Range of Motion Respiratory/Chest: Positive for: Clear to Auscultation. Negative for: Respiratory Distress, Accessory Muscle Use, Tachypneic Cardiovascular: Positive for: Murmurs (systolic crescendo-decrescendo murmur ), Normal S1, S2 Abdomen: Positive for: Tenderness (generalized ). Negative for: Distention, Peritoneal Signs, McBurney's Point Tender, Rovsing's Sign Present Genitourinary/Pelvic Exam: Negative for: Normal External Genitalia (sloughing of the skin located on mons pubis ) Back: Positive for: Paraspinal Tenderness Upper Extremity: Positive for: Edema (bilateral edema, bilateral bruising, bilateral erythema ), NORMAL PULSES. Negative for: Normal Inspection, Deformity Lower Extremity: Positive for: Edema (bilateral lower extremity edema with diffuse bruising in lower extremities bilaterally. Scattered pink papules in bilateral knees and shins) Neurological: Positive for: GCS=15, CN II-XII Intact, Speech Normal Skin: Positive for: Warm, Dry Psychiatric: Positive for: Alert, Oriented x 3, Normal Insight, Normal Concentration - Medications Active Medications: Active Medications Generic Name Dose Route Start Last Admin Trade Name Freq PRN Reason Stop Dose Admin Al Hydrox/Mg Hydrox/Simethicone 30 ml 09/01/18 09:55 09/01/18 10:44 Maalox Plus 30 Ml PO 30 ml Q6H PRN Administration Indigestion / Heartburn Ascorbic Acid 1,000 mg 09/01/18 10:00 09/01/18 10:09 Vitamin C 500 Mg Tab PO 1,000 mg DAILY JOSE Administration Aspirin 81 mg 09/01/18 10:00 09/01/18 09:20 Aspirin Chewable PO 81 mg DAILY JOSE Administration Benztropine Mesylate 1 mg 09/01/18 10:00 09/01/18 17:48 Cogentin PO 1 mg BID JOSE Administration Calcium/Vitamin D 1 tab 09/01/18 12:00 09/01/18 17:48 Oyster Shell Calcium/Vitamin D 500 Mg-200 Iu PO 1 tab BID JOSE Administration Epoetin Morales 10,000 unit 09/01/18 12:00 09/01/18 12:00 Procrit SC 10,000 unit TTS JOSE Administration Ergocalciferol 1 cap 09/01/18 12:00 09/01/18 12:10 Drisdol 50,000 Intl Units Cap PO 1 cap Q7D JOSE Administration Ferrous Gluconate 324 mg 09/01/18 14:00 09/01/18 17:48 Fergon PO 324 mg TID JOSE Administration Guaifenesin/Dextromethorphan 5 ml 08/31/18 21:11 09/01/18 13:51 Robitussin Dm PO 5 ml Q4H PRN Administration Cough Heparin Sodium (Porcine) 5,000 units 08/31/18 22:00 09/02/18 05:06 Heparin SC 5,000 units Q8 JOSE Administration Cefazolin Sodium 1,000 mg/ 50 mls @ 100 mls/hr 08/31/18 21:00 09/02/18 05:07 Sodium Chloride IVPB 100 mls/hr Q8H JOSE Administration Protocol Sodium Bicarbonate 150 meq/ 1,150 mls @ 75 mls/hr 09/01/18 11:00 09/02/18 05:06 Dextrose IV 75 mls/hr .[id number] JOSE Administration Influenza Virus Vaccine 60 mcg 09/03/18 10:00 Fluzone Quad [id number] IM 09/03/18 10:01 .ONCE ONE Magnesium Oxide 400 mg 09/01/18 11:00 09/01/18 17:48 Mag-Ox PO 400 mg BID JOSE Administration Multivitamins 1 tab 09/01/18 10:45 09/01/18 11:48 Hexavitamin PO 1 tab DAILY JOSE Administration Nystatin 1 applic 09/01/18 10:00 09/01/18 17:49 Nystop Topical Powder TOP 09/15/18 10:01 1 applic BID JOSE Administration Pantoprazole Sodium 40 mg 08/31/18 17:00 09/01/18 09:20 Protonix Ec Tab PO 40 mg DAILY JOSE Administration Pneumococcal Polyvalent Vaccine 0.5 ml 09/03/18 17:08 Pneumovax 23 Vaccine IM 09/03/18 17:09 .ONCE ONE Saliva Substitute 10 ml 09/01/18 10:00 09/01/18 22:30 First Magic Mouthwash PO 10 ml QID JOSE Administration Sodium Bicarbonate 1,300 mg 09/01/18 11:00 09/01/18 17:48 Sodium Bicarbonate Tab PO 1,300 mg TID JOSE Administration Thiamine HCl 100 mg 09/01/18 16:30 09/01/18 16:22 Vitamin B1 Inj IV 100 mg DAILY JOSE Administration Vitamin A 0.5 ea 08/31/18 16:00 09/02/18 04:53 Vitamin A & D Oint Ud Foilpak TOP 0.5 ea Q4 JOSE Administration Zinc Sulfate 220 mg 09/01/18 10:00 09/01/18 10:09 Zinc Sulfate 220 Mg Cap PO 220 mg DAILY JOSE Administration - Patient Studies Lab Studies: Microbiology Studies 08/31/18 21:36 Blood Culture - Preliminary Blood-Venous NO GROWTH AFTER 24 HOURS 08/31/18 21:36 Blood Culture - Preliminary Blood-Venous NO GROWTH AFTER 24 HOURS 08/31/18 20:08 MRSA Culture (Admit) - Final Naris MRSA NOT DETECTED Lab Studies 09/02/18 09/02/18 09/01/18 Range/Units 06:09 06:09 14:51 WBC 11.0 H (4.8-10.8) K/uL RBC 1.71 L (3.80-5.20) Mil/uL Hgb 5.4 L* D (11.0-16.0) g/dL Hct 15.4 L (34.0-47.0) % MCV 90.1 (81.0-99.0) fL MCH 31.7 H (27.0-31.0) pg MCHC 35.2 (33.0-37.0) g/dL RDW 16.5 H (11.5-14.5) % Plt Count 200 (130-400) K/uL MPV 8.6 (7.2-11.7) fL Neut % (Auto) 83.8 H (50.0-75.0) % Lymph % (Auto) 9.8 L (20.0-40.0) % [place] % (Auto) 3.8 (0.0-10.0) % Eos % (Auto) 1.7 (0.0-4.0) % Baso % (Auto) 0.9 (0.0-2.0) % Neut # (Auto) 9.2 H (1.8-7.0) K/uL Lymph # (Auto) 1.1 (1.0-4.3) K/uL [place] # (Auto) 0.4 (0.0-0.8) K/uL Eos # (Auto) 0.2 (0.0-0.7) K/uL Baso # (Auto) 0.1 (0.0-0.2) K/uL Neutrophils % (Manual) (50-75) % Band Neutrophils % (0-2) % Lymphocytes % (Manual) (20-40) % Monocytes % (Manual) (0-10) % Platelet Estimate (NORMAL) Polychromasia Anisocytosis (manual) [place] Cells Sodium 132 130 L (132-148) mmol/L Potassium 3.3 L 4.8 (3.6-5.2) mmol/L Chloride 105 107 (98-107) mmol/L Carbon Dioxide 16 L 11 L* (22-30) mmol/L Anion Gap 14 16 (10-20) BUN 24 H 24 H (7-17) mg/dL Creatinine 2.4 H 2.6 H (0.7-1.2) mg/dL Est GFR ( Amer) 25 23 Est GFR (Non-Af Amer) 20 19 Random Glucose 118 H 168 H (65-105) mg/dL Lactic Acid (0.7-2.1) mmol/L Calcium 6.7 L 6.6 L (8.6-10.4) mg/dl Phosphorus 1.7 L 2.4 L (2.5-4.5) mg/dL Magnesium 1.9 2.0 (1.6-2.3) mg/dL Total Bilirubin 0.9 1.1 (0.2-1.3) mg/dL AST 11 L D 15 (14-36) U/L ALT 25 27 (9-52) U/L Alkaline Phosphatase 79 88 (38-126) U/L Total Protein 4.6 L 4.7 L (6.3-8.3) g/dL Albumin 2.5 L 2.2 L (3.5-5.0) g/dL Globulin 2.1 L 2.5 (2.2-3.9) gm/dL Albumin/Globulin Ratio 1.2 0.9 L (1.0-2.1) Vitamin B12 (239-931) pg/mL Folate ng/mL Cortisol AM Sample (4.46-22.7) ug/dL Urine Color (YELLOW) Urine Clarity (Clear) Urine pH (5.0-8.0) Ur Specific [place] (1.003-1.030) Urine Protein (NEGATIVE) mg/dL Urine Glucose (UA) (Normal) mg/dL Urine Ketones (NEGATIVE) mg/dL Urine Blood (NEGATIVE) Urine Nitrate (NEGATIVE) Urine Bilirubin (NEGATIVE) Urine Urobilinogen (0.2-1.0) mg/dL Ur Leukocyte Esterase (Negative) [place]/uL Urine WBC (Auto) (0-5) /hpf Urine RBC (Auto) (0-3) /hpf Ur Squamous Epith Cells (0-5) /hpf Urine Bacteria (<OCC) Hyaline Casts (0-2) /lpf Urine Yeast (Budding) (NEGATIVE) /hpf Urine Eosinophils (NEGATIVE) Urine Osmolality (300-1000) mosm/kg Ur Random Creatinine mg/dL Ur Random Sodium mmol/L Ur Random Potassium mmol/L Urine Magnesium mg/dL Salicylates mg/dL 1 Alcohol, Quantitative (0-10) mg/dl B-Hydroxybutyrate (0.02-0.27) mM C. difficile Ag & Toxin (NEGATIVE) 09/01/18 09/01/18 09/01/18 Range/Units 13:30 12:45 12:45 WBC (4.8-10.8) K/uL RBC (3.80-5.20) Mil/uL Hgb (11.0-16.0) g/dL Hct (34.0-47.0) % MCV (81.0-99.0) fL MCH (27.0-31.0) pg MCHC (33.0-37.0) g/dL RDW (11.5-14.5) % Plt Count (130-400) K/uL MPV (7.2-11.7) fL Neut % (Auto) (50.0-75.0) % Lymph % (Auto) (20.0-40.0) % [place] % (Auto) (0.0-10.0) % Eos % (Auto) (0.0-4.0) % Baso % (Auto) (0.0-2.0) % Neut # (Auto) (1.8-7.0) K/uL Lymph # (Auto) (1.0-4.3) K/uL [place] # (Auto) (0.0-0.8) K/uL Eos # (Auto) (0.0-0.7) K/uL Baso # (Auto) (0.0-0.2) K/uL Neutrophils % (Manual) (50-75) % Band Neutrophils % (0-2) % Lymphocytes % (Manual) (20-40) % Monocytes % (Manual) (0-10) % Platelet Estimate (NORMAL) Polychromasia Anisocytosis (manual) [place] Cells Sodium (132-148) mmol/L Potassium (3.6-5.2) mmol/L Chloride (98-107) mmol/L Carbon Dioxide (22-30) mmol/L Anion Gap (10-20) BUN (7-17) mg/dL Creatinine (0.7-1.2) mg/dL Est GFR ( Amer) Est GFR (Non-Af Amer) Random Glucose (65-105) mg/dL Lactic Acid (0.7-2.1) mmol/L Calcium (8.6-10.4) mg/dl Phosphorus (2.5-4.5) mg/dL Magnesium (1.6-2.3) mg/dL Total Bilirubin (0.2-1.3) mg/dL AST (14-36) U/L ALT (9-52) U/L Alkaline Phosphatase (38-126) U/L Total Protein (6.3-8.3) g/dL Albumin (3.5-5.0) g/dL Globulin (2.2-3.9) gm/dL Albumin/Globulin Ratio (1.0-2.1) Vitamin B12 (239-931) pg/mL Folate ng/mL Cortisol AM Sample (4.46-22.7) ug/dL Urine Color Yellow (YELLOW) Urine Clarity Hazy (Clear) Urine pH 6.0 (5.0-8.0) Ur Specific [place] 1.014 (1.003-1.030) Urine Protein 1+ H (NEGATIVE) mg/dL Urine Glucose (UA) Normal (Normal) mg/dL Urine Ketones Negative (NEGATIVE) mg/dL Urine Blood 1+ H (NEGATIVE) Urine Nitrate Negative (NEGATIVE) Urine Bilirubin Negative (NEGATIVE) Urine Urobilinogen Normal (0.2-1.0) mg/dL Ur Leukocyte Esterase Trace (Negative) [place]/uL Urine WBC (Auto) 10 H (0-5) /hpf Urine RBC (Auto) 3 (0-3) /hpf Ur Squamous Epith Cells 4 (0-5) /hpf Urine Bacteria Occ H (<OCC) Hyaline Casts 6-10 H (0-2) /lpf Urine Yeast (Budding) Occ H (NEGATIVE) /hpf Urine Eosinophils Negative (NEGATIVE) Urine Osmolality 272 L (300-1000) mosm/kg Ur Random Creatinine 99.4 mg/dL Ur Random Sodium 16 mmol/L Ur Random Potassium 50.1 mmol/L Urine Magnesium 1.5 mg/dL Salicylates mg/dL 1 Alcohol, Quantitative (0-10) mg/dl B-Hydroxybutyrate (0.02-0.27) mM C. difficile Ag & Toxin (NEGATIVE) 09/01/18 09/01/18 09/01/18 Range/Units 11:47 11:47 11:47 WBC (4.8-10.8) K/uL RBC (3.80-5.20) Mil/uL Hgb (11.0-16.0) g/dL Hct (34.0-47.0) % MCV (81.0-99.0) fL MCH (27.0-31.0) pg MCHC (33.0-37.0) g/dL RDW (11.5-14.5) % Plt Count (130-400) K/uL MPV (7.2-11.7) fL Neut % (Auto) (50.0-75.0) % Lymph % (Auto) (20.0-40.0) % [place] % (Auto) (0.0-10.0) % Eos % (Auto) (0.0-4.0) % Baso % (Auto) (0.0-2.0) % Neut # (Auto) (1.8-7.0) K/uL Lymph # (Auto) (1.0-4.3) K/uL [place] # (Auto) (0.0-0.8) K/uL Eos # (Auto) (0.0-0.7) K/uL Baso # (Auto) (0.0-0.2) K/uL Neutrophils % (Manual) (50-75) % Band Neutrophils % (0-2) % Lymphocytes % (Manual) (20-40) % Monocytes % (Manual) (0-10) % Platelet Estimate (NORMAL) Polychromasia Anisocytosis (manual) [place] Cells Sodium (132-148) mmol/L Potassium (3.6-5.2) mmol/L Chloride (98-107) mmol/L Carbon Dioxide (22-30) mmol/L Anion Gap (10-20) BUN (7-17) mg/dL Creatinine (0.7-1.2) mg/dL Est GFR ( Amer) Est GFR (Non-Af Amer) Random Glucose (65-105) mg/dL Lactic Acid 1.2 (0.7-2.1) mmol/L Calcium (8.6-10.4) mg/dl Phosphorus (2.5-4.5) mg/dL Magnesium (1.6-2.3) mg/dL Total Bilirubin (0.2-1.3) mg/dL AST (14-36) U/L ALT (9-52) U/L Alkaline Phosphatase (38-126) U/L Total Protein (6.3-8.3) g/dL Albumin (3.5-5.0) g/dL Globulin (2.2-3.9) gm/dL Albumin/Globulin Ratio (1.0-2.1) Vitamin B12 (239-931) pg/mL Folate ng/mL Cortisol AM Sample (4.46-22.7) ug/dL Urine Color (YELLOW) Urine Clarity (Clear) Urine pH (5.0-8.0) Ur Specific [place] (1.003-1.030) Urine Protein (NEGATIVE) mg/dL Urine Glucose (UA) (Normal) mg/dL Urine Ketones (NEGATIVE) mg/dL Urine Blood (NEGATIVE) Urine Nitrate (NEGATIVE) Urine Bilirubin (NEGATIVE) Urine Urobilinogen (0.2-1.0) mg/dL Ur Leukocyte Esterase (Negative) [place]/uL Urine WBC (Auto) (0-5) /hpf Urine RBC (Auto) (0-3) /hpf Ur Squamous Epith Cells (0-5) /hpf Urine Bacteria (<OCC) Hyaline Casts (0-2) /lpf Urine Yeast (Budding) (NEGATIVE) /hpf Urine Eosinophils (NEGATIVE) Urine Osmolality (300-1000) mosm/kg Ur Random Creatinine mg/dL Ur Random Sodium mmol/L Ur Random Potassium mmol/L Urine Magnesium mg/dL Salicylates < 1.0 mg/dL 1 Alcohol, Quantitative < 10 (0-10) mg/dl B-Hydroxybutyrate 0.38 H (0.02-0.27) mM C. difficile Ag & Toxin (NEGATIVE) 09/01/18 09/01/18 09/01/18 Range/Units 10:24 10:24 10:24 WBC (4.8-10.8) K/uL RBC (3.80-5.20) Mil/uL Hgb (11.0-16.0) g/dL Hct (34.0-47.0) % MCV (81.0-99.0) fL MCH (27.0-31.0) pg MCHC (33.0-37.0) g/dL RDW (11.5-14.5) % Plt Count (130-400) K/uL MPV (7.2-11.7) fL Neut % (Auto) (50.0-75.0) % Lymph % (Auto) (20.0-40.0) % [place] % (Auto) (0.0-10.0) % Eos % (Auto) (0.0-4.0) % Baso % (Auto) (0.0-2.0) % Neut # (Auto) (1.8-7.0) K/uL Lymph # (Auto) (1.0-4.3) K/uL [place] # (Auto) (0.0-0.8) K/uL Eos # (Auto) (0.0-0.7) K/uL Baso # (Auto) (0.0-0.2) K/uL Neutrophils % (Manual) (50-75) % Band Neutrophils % (0-2) % Lymphocytes % (Manual) (20-40) % Monocytes % (Manual) (0-10) % Platelet Estimate (NORMAL) Polychromasia Anisocytosis (manual) [place] Cells Sodium (132-148) mmol/L Potassium (3.6-5.2) mmol/L Chloride (98-107) mmol/L Carbon Dioxide (22-30) mmol/L Anion Gap (10-20) BUN (7-17) mg/dL Creatinine (0.7-1.2) mg/dL Est GFR ( Amer) Est GFR (Non-Af Amer) Random Glucose (65-105) mg/dL Lactic Acid (0.7-2.1) mmol/L Calcium (8.6-10.4) mg/dl Phosphorus (2.5-4.5) mg/dL Magnesium (1.6-2.3) mg/dL Total Bilirubin (0.2-1.3) mg/dL AST (14-36) U/L ALT (9-52) U/L Alkaline Phosphatase (38-126) U/L Total Protein (6.3-8.3) g/dL Albumin (3.5-5.0) g/dL Globulin (2.2-3.9) gm/dL Albumin/Globulin Ratio (1.0-2.1) Vitamin B12 > 1000 H (239-931) pg/mL Folate 12.5 ng/mL Cortisol AM Sample 51.3 H (4.46-22.7) ug/dL Urine Color (YELLOW) Urine Clarity (Clear) Urine pH (5.0-8.0) Ur Specific [place] (1.003-1.030) Urine Protein (NEGATIVE) mg/dL Urine Glucose (UA) (Normal) mg/dL Urine Ketones (NEGATIVE) mg/dL Urine Blood (NEGATIVE) Urine Nitrate (NEGATIVE) Urine Bilirubin (NEGATIVE) Urine Urobilinogen (0.2-1.0) mg/dL Ur Leukocyte Esterase (Negative) [place]/uL Urine WBC (Auto) (0-5) /hpf Urine RBC (Auto) (0-3) /hpf Ur Squamous Epith Cells (0-5) /hpf Urine Bacteria (<OCC) Hyaline Casts (0-2) /lpf Urine Yeast (Budding) (NEGATIVE) /hpf Urine Eosinophils (NEGATIVE) Urine Osmolality (300-1000) mosm/kg Ur Random Creatinine mg/dL Ur Random Sodium mmol/L Ur Random Potassium mmol/L Urine Magnesium mg/dL Salicylates mg/dL 1 Alcohol, Quantitative (0-10) mg/dl B-Hydroxybutyrate (0.02-0.27) mM C. difficile Ag & Toxin Negative (NEGATIVE) 09/01/18 Range/Units 05:56 WBC (4.8-10.8) K/uL RBC (3.80-5.20) Mil/uL Hgb (11.0-16.0) g/dL Hct (34.0-47.0) % MCV (81.0-99.0) fL MCH (27.0-31.0) pg MCHC (33.0-37.0) g/dL RDW (11.5-14.5) % Plt Count (130-400) K/uL MPV (7.2-11.7) fL Neut % (Auto) (50.0-75.0) % Lymph % (Auto) (20.0-40.0) % [place] % (Auto) (0.0-10.0) % Eos % (Auto) (0.0-4.0) % Baso % (Auto) (0.0-2.0) % Neut # (Auto) (1.8-7.0) K/uL Lymph # (Auto) (1.0-4.3) K/uL [place] # (Auto) (0.0-0.8) K/uL Eos # (Auto) (0.0-0.7) K/uL Baso # (Auto) (0.0-0.2) K/uL Neutrophils % (Manual) 84 H (50-75) % Band Neutrophils % 4 H (0-2) % Lymphocytes % (Manual) 7 L (20-40) % Monocytes % (Manual) 5 (0-10) % Platelet Estimate Normal (NORMAL) Polychromasia Slight Anisocytosis (manual) Slight [place] Cells Moderate Sodium (132-148) mmol/L Potassium (3.6-5.2) mmol/L Chloride (98-107) mmol/L Carbon Dioxide (22-30) mmol/L Anion Gap (10-20) BUN (7-17) mg/dL Creatinine (0.7-1.2) mg/dL Est GFR ( Amer) Est GFR (Non-Af Amer) Random Glucose (65-105) mg/dL Lactic Acid (0.7-2.1) mmol/L Calcium (8.6-10.4) mg/dl Phosphorus (2.5-4.5) mg/dL Magnesium (1.6-2.3) mg/dL Total Bilirubin (0.2-1.3) mg/dL AST (14-36) U/L ALT (9-52) U/L Alkaline Phosphatase (38-126) U/L Total Protein (6.3-8.3) g/dL Albumin (3.5-5.0) g/dL Globulin (2.2-3.9) gm/dL Albumin/Globulin Ratio (1.0-2.1) Vitamin B12 (239-931) pg/mL Folate ng/mL Cortisol AM Sample (4.46-22.7) ug/dL Urine Color (YELLOW) Urine Clarity (Clear) Urine pH (5.0-8.0) Ur Specific [place] (1.003-1.030) Urine Protein (NEGATIVE) mg/dL Urine Glucose (UA) (Normal) mg/dL Urine Ketones (NEGATIVE) mg/dL Urine Blood (NEGATIVE) Urine Nitrate (NEGATIVE) Urine Bilirubin (NEGATIVE) Urine Urobilinogen (0.2-1.0) mg/dL Ur Leukocyte Esterase (Negative) [place]/uL Urine WBC (Auto) (0-5) /hpf Urine RBC (Auto) (0-3) /hpf Ur Squamous Epith Cells (0-5) /hpf Urine Bacteria (<OCC) Hyaline Casts (0-2) /lpf Urine Yeast (Budding) (NEGATIVE) /hpf Urine Eosinophils (NEGATIVE) Urine Osmolality (300-1000) mosm/kg Ur Random Creatinine mg/dL Ur Random Sodium mmol/L Ur Random Potassium mmol/L Urine Magnesium mg/dL Salicylates mg/dL 1 Alcohol, Quantitative (0-10) mg/dl B-Hydroxybutyrate (0.02-0.27) mM C. difficile Ag & Toxin (NEGATIVE) Laboratory Results - last 24 hr 09/01/18 09/01/18 09/01/18 05:56 10:24 10:24 WBC RBC Hgb Hct MCV MCH MCHC RDW Plt Count MPV Neut % (Auto) Lymph % (Auto) [place] % (Auto) Eos % (Auto) Baso % (Auto) Neut # (Auto) Lymph # (Auto) [place] # (Auto) Eos # (Auto) Baso # (Auto) Neutrophils % (Manual) 84 H Band Neutrophils % 4 H Lymphocytes % (Manual) 7 L Monocytes % (Manual) 5 Platelet Estimate Normal Polychromasia Slight Anisocytosis (manual) Slight [place] Cells Moderate Sodium Potassium Chloride Carbon Dioxide Anion Gap BUN Creatinine Est GFR ( Amer) Est GFR (Non-Af Amer) Random Glucose Lactic Acid Calcium Phosphorus Magnesium Total Bilirubin AST ALT Alkaline Phosphatase Total Protein Albumin Globulin Albumin/Globulin Ratio Vitamin B12 > 1000 H Folate 12.5 Cortisol AM Sample Urine Color Urine Clarity Urine pH Ur Specific [place] Urine Protein Urine Glucose (UA) Urine Ketones Urine Blood Urine Nitrate Urine Bilirubin Urine Urobilinogen Ur Leukocyte Esterase Urine WBC (Auto) Urine RBC (Auto) Ur Squamous Epith Cells Urine Bacteria Hyaline Casts Urine Yeast (Budding) Urine Eosinophils Urine Osmolality Ur Random Creatinine Ur Random Sodium Ur Random Potassium Urine Magnesium Salicylates Alcohol, Quantitative B-Hydroxybutyrate C. difficile Ag & Toxin Negative 09/01/18 09/01/18 09/01/18 10:24 11:47 11:47 WBC RBC Hgb Hct MCV MCH MCHC RDW Plt Count MPV Neut % (Auto) Lymph % (Auto) [place] % (Auto) Eos % (Auto) Baso % (Auto) Neut # (Auto) Lymph # (Auto) [place] # (Auto) Eos # (Auto) Baso # (Auto) Neutrophils % (Manual) Band Neutrophils % Lymphocytes % (Manual) Monocytes % (Manual) Platelet Estimate Polychromasia Anisocytosis (manual) [place] Cells Sodium Potassium Chloride Carbon Dioxide Anion Gap BUN Creatinine Est GFR ( Amer) Est GFR (Non-Af Amer) Random Glucose Lactic Acid Calcium Phosphorus Magnesium Total Bilirubin AST ALT Alkaline Phosphatase Total Protein Albumin Globulin Albumin/Globulin Ratio Vitamin B12 Folate Cortisol AM Sample 51.3 H Urine Color Urine Clarity Urine pH Ur Specific [place] Urine Protein Urine Glucose (UA) Urine Ketones Urine Blood Urine Nitrate Urine Bilirubin Urine Urobilinogen Ur Leukocyte Esterase Urine WBC (Auto) Urine RBC (Auto) Ur Squamous Epith Cells Urine Bacteria Hyaline Casts Urine Yeast (Budding) Urine Eosinophils Urine Osmolality Ur Random Creatinine Ur Random Sodium Ur Random Potassium Urine Magnesium Salicylates < 1.0 Alcohol, Quantitative < 10 B-Hydroxybutyrate 0.38 H C. difficile Ag & Toxin 09/01/18 09/01/18 09/01/18 11:47 12:45 12:45 WBC RBC Hgb Hct MCV MCH MCHC RDW Plt Count MPV Neut % (Auto) Lymph % (Auto) [place] % (Auto) Eos % (Auto) Baso % (Auto) Neut # (Auto) Lymph # (Auto) [place] # (Auto) Eos # (Auto) Baso # (Auto) Neutrophils % (Manual) Band Neutrophils % Lymphocytes % (Manual) Monocytes % (Manual) Platelet Estimate Polychromasia Anisocytosis (manual) [place]ph Cells Sodium Potassium Chloride Carbon Dioxide Anion Gap BUN Creatinine Est GFR ( Amer) Est GFR (Non-Af Amer) Random Glucose Lactic Acid 1.2 Calcium Phosphorus Magnesium Total Bilirubin AST ALT Alkaline Phosphatase Total Protein Albumin Globulin Albumin/Globulin Ratio Vitamin B12 Folate Cortisol AM Sample Urine Color Yellow Urine Clarity Hazy Urine pH 6.0 Ur Specific [place] 1.014 Urine Protein 1+ H Urine Glucose (UA) Normal Urine Ketones Negative Urine Blood 1+ H Urine Nitrate Negative Urine Bilirubin Negative Urine Urobilinogen Normal Ur Leukocyte Esterase Trace Urine WBC (Auto) 10 H Urine RBC (Auto) 3 Ur Squamous Epith Cells 4 Urine Bacteria Occ H Hyaline Casts 6-10 H Urine Yeast (Budding) Occ H Urine Eosinophils Urine Osmolality 272 L Ur Random Creatinine 99.4 Ur Random Sodium 16 Ur Random Potassium 50.1 Urine Magnesium 1.5 Salicylates Alcohol, Quantitative B-Hydroxybutyrate C. difficile Ag & Toxin 09/01/18 09/01/18 09/02/18 13:30 14:51 06:09 WBC 11.0 H RBC 1.71 L Hgb 5.4 L* D Hct 15.4 L MCV 90.1 MCH 31.7 H MCHC 35.2 RDW 16.5 H Plt Count 200 MPV 8.6 Neut % (Auto) 83.8 H Lymph % (Auto) 9.8 L [place] % (Auto) 3.8 Eos % (Auto) 1.7 Baso % (Auto) 0.9 Neut # (Auto) 9.2 H Lymph # (Auto) 1.1 [place] # (Auto) 0.4 Eos # (Auto) 0.2 Baso # (Auto) 0.1 Neutrophils % (Manual) Band Neutrophils % Lymphocytes % (Manual) Monocytes % (Manual) Platelet Estimate Polychromasia Anisocytosis (manual) [place] Cells Sodium 130 L Potassium 4.8 Chloride 107 Carbon Dioxide 11 L* Anion Gap 16 BUN 24 H Creatinine 2.6 H Est GFR ( Amer) 23 Est GFR (Non-Af Amer) 19 Random Glucose 168 H Lactic Acid Calcium 6.6 L Phosphorus 2.4 L Magnesium 2.0 Total Bilirubin 1.1 AST 15 ALT 27 Alkaline Phosphatase 88 Total Protein 4.7 L Albumin 2.2 L Globulin 2.5 Albumin/Globulin Ratio 0.9 L Vitamin B12 Folate Cortisol AM Sample Urine Color Urine Clarity Urine pH Ur Specific [place] Urine Protein Urine Glucose (UA) Urine Ketones Urine Blood Urine Nitrate Urine Bilirubin Urine Urobilinogen Ur Leukocyte Esterase Urine WBC (Auto) Urine RBC (Auto) Ur Squamous Epith Cells Urine Bacteria Hyaline Casts Urine Yeast (Budding) Urine Eosinophils Negative Urine Osmolality Ur Random Creatinine Ur Random Sodium Ur Random Potassium Urine Magnesium Salicylates Alcohol, Quantitative B-Hydroxybutyrate C. difficile Ag & Toxin 09/02/18 06:09 WBC RBC Hgb Hct MCV MCH MCHC RDW Plt Count MPV Neut % (Auto) Lymph % (Auto) [place] % (Auto) Eos % (Auto) Baso % (Auto) Neut # (Auto) Lymph # (Auto) [place] # (Auto) Eos # (Auto) Baso # (Auto) Neutrophils % (Manual) Band Neutrophils % Lymphocytes % (Manual) Monocytes % (Manual) Platelet Estimate Polychromasia Anisocytosis (manual) [place] Cells Sodium 132 Potassium 3.3 L Chloride 105 Carbon Dioxide 16 L Anion Gap 14 BUN 24 H Creatinine 2.4 H Est GFR ( Amer) 25 Est GFR (Non-Af Amer) 20 Random Glucose 118 H Lactic Acid Calcium 6.7 L Phosphorus 1.7 L Magnesium 1.9 Total Bilirubin 0.9 AST 11 L D ALT 25 Alkaline Phosphatase 79 Total Protein 4.6 L Albumin 2.5 L Globulin 2.1 L Albumin/Globulin Ratio 1.2 Vitamin B12 Folate Cortisol AM Sample Urine Color Urine Clarity Urine pH Ur Specific [place] Urine Protein Urine Glucose (UA) Urine Ketones Urine Blood Urine Nitrate Urine Bilirubin Urine Urobilinogen Ur Leukocyte Esterase Urine WBC (Auto) Urine RBC (Auto) Ur Squamous Epith Cells Urine Bacteria Hyaline Casts Urine Yeast (Budding) Urine Eosinophils Urine Osmolality Ur Random Creatinine Ur Random Sodium Ur Random Potassium Urine Magnesium Salicylates Alcohol, Quantitative B-Hydroxybutyrate C. difficile Ag & Toxin Review of Systems - Review of Systems Systems not reviewed;Unavailable: Altered Mental Status Critical Care Progress Note - Nutrition Nutrition: Nutrition Category Date Time Status Heart Healthy Diet [DIET] Diets 09/01/18 Breakfast Active Assessment/Plan - Assessment and Plan (Free Text) Assessment: This is a 62-year-old female with PMH of renal insufficiency, hypertnesion, hyperlipidemia, and depression who was recently seen at [facility] for possible acute endocarditis. Today she presents for dizziness and hypotension. Patient was found to have hypokalemia in the ED (K+=1.1). Potassium administered to patient. Hypokalemia improved. Patient is being monitored and treated in ICU. Neuro: - Agitation and confusion - Start Haloperidol BID (home-medication) - Monitor neuro checks CV: - History of possible acute endocarditis with Staph infection - EKG abnormal with sinus tachycardia and right atrial enlargement Pulm: - No acute issues - Monitor - Maintain O2 sat > 92% - O2 PRN 2L NC GI: - Malnutrition & anasarca - Continue Vitamin C, Zinc, Calcium, Vitamin D - CT ABD/ Pelvis: Gallbladder distention. No calcified gallstones. Coarse hepatic calcifications. - GI consulted - Dr. John Correa; recommendations appreciated - Stool occult - Negative Renal: - Renal insufficiency with anasarca - Dr. Hernandez consulted; recommendations appreciated - Severe hypokalemia, improved K+=2.8 (symptomatic) - Currently being treated with PO repletion of potassium - magnesium low; repleted and corrected - Monitor CMP with Mg, Phos ID: - History of endocarditis - Dr. Grant consulted; recommendations appreciated - Patient was getting IV antibiotics via PICC line as outpatient - Worsening Leukocytosis WBC=18.4 - Continue nystatin topical BID - Continue Vitamin C, Zinc, Calcium, Vitamin D - IVF Heme: - Normocytic anemia; chronic - Hgb decreased from 7.7 --> 5.4 (recheck: 5.8) * Likely dilutional effect * Type & Screen and transfusion will be performed as necessary (consent obtained from Next Of Kin, as patient is confused) * GI consulted; Dr. John Correa; recommendations appreciated * Monitor H/H MSK: - CT ABD/Pelvis: Multple compression fracture deformities (most severe L1); please see full report Patient seen and case discussed in detail with Dr. Marc PGY1 Rajinder Shabazz <Kalie Marc - Last Filed: 09/02/18 18:58> CCU Objective - Vital Signs / Intake & Output Vital Signs (Last 4 hours): Vital Signs Temp Pulse Resp BP Pulse Ox 09/02/18 18:40 98.2 F 116 H 22 127/70 09/02/18 17:50 98.0 F 119 H 20 119/67 09/02/18 17:40 119 H 18 120/69 98 09/02/18 17:25 116 H 20 116/63 97 09/02/18 17:10 117 H 16 120/67 99 09/02/18 17:00 118 H 17 98 09/02/18 16:55 115 H 17 110/66 98 09/02/18 16:50 98.0 F 115 H 22 126/71 09/02/18 16:40 119 H 16 126/71 99 09/02/18 16:25 117 H 21 127/74 99 09/02/18 16:10 118 H 18 129/68 98 09/02/18 16:00 98.2 F 119 H 19 99 09/02/18 15:55 118 H 21 123/78 98 09/02/18 15:54 98.0 F 118 H 22 123/78 09/02/18 15:40 118 H 27 H 132/75 97 09/02/18 15:25 140/73 09/02/18 15:24 98.2 F 115 H 21 140/73 09/02/18 15:10 120 H 20 125/68 98 09/02/18 15:09 98.4 F 116 H 21 125/68 09/02/18 15:00 119 H 21 98 Intake and Output (Last 8hrs): Intake & Output 09/02/18 09/02/18 09/02/18 06:59 14:59 22:59 Intake Total 950 1262.5 503.5 Output Total 300 100 40 Balance 650 1162.5 463.5 Weight 213 lb 6.519 oz Intake: Intake, IV Amount 850 782.5 128.5 Left PICC 600 527.5 42.5 Right Wrist 250 255 86 Oral 100 480 0 Blood Product 0 325 Red Blood Cells Cpd As1 0 325 Lr Unit [id number] Other 50 Red Blood Cells Cpd As1 50 Lr Unit [id number] Output: Urine 130 100 40 Urethral ([place]) 130 100 40 Stool 170 Emesis 0 0 - Medications Active Medications: Active Medications Generic Name Dose Route Start Last Admin Trade Name Freq PRN Reason Stop Dose Admin Al Hydrox/Mg Hydrox/Simethicone 30 ml 09/01/18 09:55 09/01/18 10:44 Maalox Plus 30 Ml PO 30 ml Q6H PRN Administration Indigestion / Heartburn Ascorbic Acid 1,000 mg 09/01/18 10:00 09/02/18 09:42 Vitamin C 500 Mg Tab PO 1,000 mg DAILY JOSE Administration Aspirin 81 mg 09/01/18 10:00 09/02/18 09:42 Aspirin Chewable PO 81 mg DAILY JOSE Administration Benztropine Mesylate 1 mg 09/01/18 10:00 09/02/18 18:52 Cogentin PO 1 mg BID JOSE Administration Calcium/Vitamin D 1 tab 09/01/18 12:00 09/02/18 09:43 Oyster Shell Calcium/Vitamin D 500 Mg-200 Iu PO 1 tab BID JOSE Administration Epoetin Morales 10,000 unit 09/01/18 12:00 09/01/18 12:00 Procrit SC 10,000 unit TTS JOSE Administration Ergocalciferol 1 cap 09/01/18 12:00 09/01/18 12:10 Drisdol 50,000 Intl Units Cap PO 1 cap Q7D JOSE Administration Ferrous Gluconate 324 mg 09/01/18 14:00 09/02/18 18:53 Fergon PO 324 mg TID JOSE Administration Guaifenesin/Dextromethorphan 5 ml 08/31/18 21:11 09/01/18 13:51 Robitussin Dm PO 5 ml Q4H PRN Administration Cough Haloperidol 5 mg 09/02/18 10:00 09/02/18 18:53 Haldol PO 5 mg BID JOSE Administration Cefazolin Sodium 1,000 mg/ 50 mls @ 100 mls/hr 08/31/18 21:00 09/02/18 13:08 Sodium Chloride IVPB 100 mls/hr Q8H JOSE Administration Protocol Potassium Phosphate 15 mmole/ 255 mls @ 42.5 mls/hr 09/02/18 13:00 09/02/18 13:09 Sodium Chloride IVPB 09/02/18 18:59 42.5 mls/hr ONCE ONE Administration Influenza Virus Vaccine 60 mcg 09/03/18 10:00 Fluzone Quad [id number] IM 09/03/18 10:01 .ONCE ONE Magnesium Oxide 400 mg 09/01/18 11:00 09/02/18 09:42 Mag-Ox PO 400 mg BID JOSE Administration Multivitamins 1 tab 09/01/18 10:45 09/02/18 09:42 Hexavitamin PO 1 tab DAILY JOSE Administration Nystatin 1 applic 09/01/18 10:00 09/02/18 18:53 Nystop Topical Powder TOP 09/15/18 10:01 1 applic BID JOSE Administration Pantoprazole Sodium 40 mg 08/31/18 17:00 09/02/18 09:43 Protonix Ec Tab PO 40 mg DAILY JOSE Administration Pneumococcal Polyvalent Vaccine 0.5 ml 09/03/18 17:08 Pneumovax 23 Vaccine IM 09/03/18 17:09 .ONCE ONE Saliva Substitute 10 ml 09/01/18 10:00 09/02/18 18:53 First Magic Mouthwash PO 10 ml QID JOSE Administration Sodium Bicarbonate 1,300 mg 09/01/18 11:00 09/02/18 18:54 Sodium Bicarbonate Tab PO 1,300 mg TID JOSE Administration Thiamine HCl 100 mg 09/01/18 16:30 09/02/18 09:43 Vitamin B1 Inj IV 100 mg DAILY JOSE Administration Vitamin A 0.5 ea 08/31/18 16:00 09/02/18 18:54 Vitamin A & D Oint Ud Foilpak TOP 0.5 ea Q4 JOSE Administration Zinc Sulfate 220 mg 09/01/18 10:00 09/02/18 09:42 Zinc Sulfate 220 Mg Cap PO 220 mg DAILY JOSE Administration - Patient Studies Lab Studies: Microbiology Studies 09/01/18 12:45 Urine Culture - Preliminary Urine,Catheterized Gram Negative Faisal 08/31/18 21:36 Blood Culture - Preliminary Blood-Venous NO GROWTH AFTER 24 HOURS 08/31/18 21:36 Blood Culture - Preliminary Blood-Venous NO GROWTH AFTER 24 HOURS 08/31/18 20:08 MRSA Culture (Admit) - Final Naris MRSA NOT DETECTED Lab Studies 09/02/18 09/02/18 09/02/18 Range/Units 08:14 07:56 07:56 WBC 11.9 H (4.8-10.8) K/uL RBC 1.87 L (3.80-5.20) Mil/uL Hgb 5.8 L* (11.0-16.0) g/dL Hct 16.7 L (34.0-47.0) % MCV 89.5 (81.0-99.0) fL MCH 31.2 H (27.0-31.0) pg MCHC 34.9 (33.0-37.0) g/dL RDW 16.4 H (11.5-14.5) % Plt Count 217 (130-400) K/uL MPV 8.5 (7.2-11.7) fL Neut % (Auto) 83.7 H (50.0-75.0) % Lymph % (Auto) 9.4 L (20.0-40.0) % [place] % (Auto) 3.7 (0.0-10.0) % Eos % (Auto) 1.7 (0.0-4.0) % Baso % (Auto) 1.5 (0.0-2.0) % Neut # (Auto) 10.0 H (1.8-7.0) K/uL Lymph # (Auto) 1.1 (1.0-4.3) K/uL [place] # (Auto) 0.4 (0.0-0.8) K/uL Eos # (Auto) 0.2 (0.0-0.7) K/uL Baso # (Auto) 0.2 (0.0-0.2) K/uL Neutrophils % (Manual) (50-75) % Lymphocytes % (Manual) (20-40) % Monocytes % (Manual) (0-10) % Platelet Estimate (NORMAL) Polychromasia Hypochromasia (manual) Anisocytosis (manual) Ovalocytes Steph Cells Sodium (132-148) mmol/L Potassium (3.6-5.2) mmol/L Chloride (98-107) mmol/L Carbon Dioxide (22-30) mmol/L Anion Gap (10-20) BUN (7-17) mg/dL Creatinine (0.7-1.2) mg/dL Est GFR ( Amer) Est GFR (Non-Af Amer) Random Glucose (65-105) mg/dL Calcium (8.6-10.4) mg/dl Phosphorus (2.5-4.5) mg/dL Magnesium (1.6-2.3) mg/dL Total Bilirubin (0.2-1.3) mg/dL AST (14-36) U/L ALT (9-52) U/L Alkaline Phosphatase (38-126) U/L Total Protein (6.3-8.3) g/dL Albumin (3.5-5.0) g/dL Globulin (2.2-3.9) gm/dL Albumin/Globulin Ratio (1.0-2.1) Stool Occult Blood Negative (NEGATIVE) Blood Type O POSITIVE Antibody Screen Negative 09/02/18 09/02/18 Range/Units 06:09 06:09 WBC 11.0 H (4.8-10.8) K/uL RBC 1.71 L (3.80-5.20) Mil/uL Hgb 5.4 L* D (11.0-16.0) g/dL Hct 15.4 L (34.0-47.0) % MCV 90.1 (81.0-99.0) fL MCH 31.7 H (27.0-31.0) pg MCHC 35.2 (33.0-37.0) g/dL RDW 16.5 H (11.5-14.5) % Plt Count 200 (130-400) K/uL MPV 8.6 (7.2-11.7) fL Neut % (Auto) 83.8 H (50.0-75.0) % Lymph % (Auto) 9.8 L (20.0-40.0) % [place] % (Auto) 3.8 (0.0-10.0) % Eos % (Auto) 1.7 (0.0-4.0) % Baso % (Auto) 0.9 (0.0-2.0) % Neut # (Auto) 9.2 H (1.8-7.0) K/uL Lymph # (Auto) 1.1 (1.0-4.3) K/uL [place] # (Auto) 0.4 (0.0-0.8) K/uL Eos # (Auto) 0.2 (0.0-0.7) K/uL Baso # (Auto) 0.1 (0.0-0.2) K/uL Neutrophils % (Manual) 88 H (50-75) % Lymphocytes % (Manual) 9 L (20-40) % Monocytes % (Manual) 3 (0-10) % Platelet Estimate Normal (NORMAL) Polychromasia Slight Hypochromasia (manual) Moderate Anisocytosis (manual) Slight Ovalocytes Slight [place] Cells Slight Sodium 132 (132-148) mmol/L Potassium 3.3 L (3.6-5.2) mmol/L Chloride 105 (98-107) mmol/L Carbon Dioxide 16 L (22-30) mmol/L Anion Gap 14 (10-20) BUN 24 H (7-17) mg/dL Creatinine 2.4 H (0.7-1.2) mg/dL Est GFR ( Amer) 25 Est GFR (Non-Af Amer) 20 Random Glucose 118 H (65-105) mg/dL Calcium 6.7 L (8.6-10.4) mg/dl Phosphorus 1.7 L (2.5-4.5) mg/dL Magnesium 1.9 (1.6-2.3) mg/dL Total Bilirubin 0.9 (0.2-1.3) mg/dL AST 11 L D (14-36) U/L ALT 25 (9-52) U/L Alkaline Phosphatase 79 (38-126) U/L Total Protein 4.6 L (6.3-8.3) g/dL Albumin 2.5 L (3.5-5.0) g/dL Globulin 2.1 L (2.2-3.9) gm/dL Albumin/Globulin Ratio 1.2 (1.0-2.1) Stool Occult Blood (NEGATIVE) Blood Type Antibody Screen Laboratory Results - last 24 hr 09/02/18 09/02/18 09/02/18 06:09 06:09 07:56 WBC 11.0 H 11.9 H RBC 1.71 L 1.87 L Hgb 5.4 L* D 5.8 L* Hct 15.4 L 16.7 L MCV 90.1 89.5 MCH 31.7 H 31.2 H MCHC 35.2 34.9 RDW 16.5 H 16.4 H Plt Count 200 217 MPV 8.6 8.5 Neut % (Auto) 83.8 H 83.7 H Lymph % (Auto) 9.8 L 9.4 L [place] % (Auto) 3.8 3.7 Eos % (Auto) 1.7 1.7 Baso % (Auto) 0.9 1.5 Neut # (Auto) 9.2 H 10.0 H Lymph # (Auto) 1.1 1.1 [place] # (Auto) 0.4 0.4 Eos # (Auto) 0.2 0.2 Baso # (Auto) 0.1 0.2 Neutrophils % (Manual) 88 H Lymphocytes % (Manual) 9 L Monocytes % (Manual) 3 Platelet Estimate Normal Polychromasia Slight Hypochromasia (manual) Moderate Anisocytosis (manual) Slight Ovalocytes Slight [place] Cells Slight Sodium 132 Potassium 3.3 L Chloride 105 Carbon Dioxide 16 L Anion Gap 14 BUN 24 H Creatinine 2.4 H Est GFR ( Amer) 25 Est GFR (Non-Af Amer) 20 Random Glucose 118 H Calcium 6.7 L Phosphorus 1.7 L Magnesium 1.9 Total Bilirubin 0.9 AST 11 L D ALT 25 Alkaline Phosphatase 79 Total Protein 4.6 L Albumin 2.5 L Globulin 2.1 L Albumin/Globulin Ratio 1.2 Stool Occult Blood Blood Type Antibody Screen 09/02/18 09/02/18 07:56 08:14 WBC RBC Hgb Hct MCV MCH MCHC RDW Plt Count MPV Neut % (Auto) Lymph % (Auto) [place] % (Auto) Eos % (Auto) Baso % (Auto) Neut # (Auto) Lymph # (Auto) [place] # (Auto) Eos # (Auto) Baso # (Auto) Neutrophils % (Manual) Lymphocytes % (Manual) Monocytes % (Manual) Platelet Estimate Polychromasia Hypochromasia (manual) Anisocytosis (manual) Ovalocytes [place] Cells Sodium Potassium Chloride Carbon Dioxide Anion Gap BUN Creatinine Est GFR ( Amer) Est GFR (Non-Af Amer) Random Glucose Calcium Phosphorus Magnesium Total Bilirubin AST ALT Alkaline Phosphatase Total Protein Albumin Globulin Albumin/Globulin Ratio Stool Occult Blood Negative Blood Type O POSITIVE Antibody Screen Negative Critical Care Progress Note - Nutrition Nutrition: Nutrition Category Date Time Status Dysphagia/Modified Consistency Diet [DIET] Diets 09/02/18 Breakfast Active Assessment/Plan - Assessment and Plan (Free Text) Plan: Patient seen and examiend at bedside PAt[facility] with fatigue, dehydration and acute on chronic renal failure -Severe metabolic acidosis/ROBIN: continue bi-carb, improving -Acute anemia: 1 unit PRBC, guiac neg, gi eval -Sepsis:continue abx as per ID -dementia/psychosis: restart home medications continue dvt/pud ppx -severe malnutrition: encourage oral diet -continue current management d/w CIu team - Date & Time Date: 09/02/18 Time: 18:58
[2018-09-02] MEDS ORDERED: Multivitamin Vitamin B Complex (Nephro-Vite) Tab PO SCH (08:00)
[2018-09-02 08:02] LABS: BASO # 0.2 K/uL (0.0-0.2); BASO % 1.5 % (0.0-2.0); EOS # 0.2 K/uL (0.0-0.7); EOS % 1.7 % (0.0-4.0); LYMPH # 1.1 K/uL (1.0-4.3); LYMPH % 9.4 % (20.0-40.0); MEAN CELL VOLUME 89.5 fL (81.0-99.0); MEAN CORPUSCULAR HEMOGLOBIN 31.2 pg (27.0-31.0); MEAN CORPUSCULAR HGB CONC 34.9 g/dL (33.0-37.0); MEAN PLATELET VOLUME 8.5 fL (7.2-11.7); MONO # 0.4 K/uL (0.0-0.8); MONO % 3.7 % (0.0-10.0); NEUT % 83.7 % (50.0-75.0); NRBC % 0.1 % (0.0-2.0); RBC 1.87 Mil/uL (3.80-5.20); RED CELL DISTRIBUTION WIDTH 16.4 % (11.5-14.5); WHITE BLOOD COUNT 11.9 K/uL (4.8-10.8)
[2018-09-02 08:13] LABS: HEMOGLOBIN 5.8 g/dL (11.0-16.0)
[2018-09-02] MEDS ORDERED: Potassium Chloride 20 mEq/15 ml LIQ UD PO ONE (08:45)
[2018-09-02 08:53] LABS: LYMPHOCYTE 9 % (20-40); MONOCYTE 3 % (0-10); NEUTROPHIL 88 % (50-75); PLATELET ESTIMATE NORMAL (NORMAL); TOTAL CELLS COUNTED 100
[2018-09-02 08:54] LABS: ANISOCYTOSIS SLIGHT; HYPOCHROMIC MODERATE; OVALOCYTES SLIGHT; POLYCHROMIC SLIGHT
[2018-09-02 08:55] LABS: BURR CELLS SLIGHT
[2018-09-02] MEDS ORDERED: Sodium Bicarbonate 8.4% 150 MEQ in Dextrose 5% In Water 1,000 ML IV SCH (09:00)
[2018-09-02] MEDS: Mag&Al/Simet/Diphen/Lido 237 ML KIT PO SCH ×4 (09:41→21:39)
[2018-09-02] MEDS: Multiple Vitamins Tab PO SCH (09:42)
[2018-09-02] MEDS: Magnesium Oxide 400 mg Tab UD PO SCH ×3 (09:42→18:57)
[2018-09-02] MEDS: Calcium-Vit D 500 mg-200 Units Tab UD PO SCH ×2 (09:43→18:57)
[2018-09-02] MEDS: Pantoprazole 40 mg EC Tab PO SCH (09:43)
[2018-09-02] MEDS: Thiamine 100 mg/ml Inj IV SCH (09:43)
--- NOTE | 2018-09-02 10:46 | VASCLAB ---
Date of service: 09/01/2018 PROCEDURE: Lower Extremity Venous Duplex Exam. HISTORY: bilateral edema and bilateral leg pain PRIORS: None. TECHNIQUE: Bilateral common femoral, femoral, popliteal and posterior tibial, peroneal and great saphenous veins were evaluated. Flow was assessed with color Doppler, compressibility, assessment of phasic flow and augmentation response. Report prepared by Christophe Dixon, MADELINE, RVT FINDINGS: RIGHT: 1. Common Femoral Vein: 1.1. Compressibility - Fully compressible: Thrombus - None : Flow - Phasic: Augmentation -Normal: Reflux - None. 2. Femoral Vein: 2.1. Compressibility - Fully compressible: Thrombus - None : Flow - Phasic: Augmentation -Normal: Reflux - None. 3. Popliteal Vein: 3.1. Compressibility - Fully compressible: Thrombus - None : Flow - Phasic: Augmentation -Normal: Reflux - None. 4. Posterior Tibial Vein: 4.1. Compressibility - Fully compressible: Thrombus - None: Flow - Phasic: Augmentation -Normal: Reflux - None. 5. Peroneal Vein: 5.1. Compressibility - : Thrombus - : Flow - : Augmentation -: Reflux - . 6. Great Saphenous Vein: 6.1. Compressibility - Fully compressible: Thrombus - None: Flow - Phasic: Augmentation - Normal: Reflux - None. LEFT: 1. Common Femoral Vein: 1.1. Compressibility - Fully compressible: Thrombus - None: Flow - Phasic: Augmentation -Normal: Reflux - None. 2. Femoral Vein: 2.1. Compressibility - Fully compressible: Thrombus - None: Flow - Phasic: Augmentation -Normal: Reflux - None. 3. Popliteal Vein: 3.1. Compressibility - Fully compressible: Thrombus - None : Flow - Phasic: Augmentation -Normal: Reflux - None. 4. Posterior Tibial Vein: 4.1. Compressibility - Fully compressible: Thrombus - None: Flow - Phasic: Augmentation -Normal: Reflux - None. 5. Peroneal Vein: 5.1. Compressibility - : Thrombus - : Flow - : Augmentation -: Reflux - . 6. Great Saphenous Vein: 6.1. Compressibility - Fully compressible: Thrombus - None: Flow - Phasic: Augmentation - Normal: Reflux - None. OTHER FINDINGS: Due to severe swelling, bilateral peroneal veins were not visualized. Impression Right: No evidence of deep or superficial vein thrombosis of the right lower extremity. Normal valve function noted of the right side. Left: No evidence of deep or superficial vein thrombosis of the left lower extremity. Normal valve function noted of the left side.
[2018-09-02] MEDS ORDERED: Potassium Chloride 20 mEq ER Tab PO SCH (12:00)
--- NOTE | 2018-09-02 12:17 | CP.PCM.PN ---
Subjective - Date & Time of Evaluation Date of Evaluation: 09/02/18 Time of Evaluation: 12:15 - Subjective Subjective: Nephrology Consultation Note Assessment: critical Acute Kidney Injury (N17.9) likely due to ATN and pre-renal state: recent work up for GN neg HAGMA with ketonemia likely due to ROBIN and ketoacidosis hypovolemic hyponatremia, Hypokalemia, hypocalcemia and hypomagnesemia likely due to GI (due to diarrhoea) and renal loss (was on lasix) with limited oral intake severe hypoalbuminemia with malnutration with anasarca Hypertensive Chronic Kidney Disease (I12.9) Chronic Kidney Disease (N18.9) Stage 3 with 55 mg albuminuria Anemia acute on chronic severe Mitral regurg with infective endocarditis, depression/Anxiety Plan No acute need for dialysis Maintain hemodynamics stable. Avoid hypotension. Patient not on ACEI/ARB due to recent ROBIN Monitor Input/Output, daily weights and renal function with basic metabolic panel started Fe, MVI, and weekly Vit D, OScal D added bicarb supplements. lower bicarb drip. can give lasix if needed. PRBC as needed. planned for transfusion 09/02/18. supplement lytes as needed agree with IV albumin. Dietary consult. added thiamine as well. avoid correction in serum Na >6-8 meq/24 hrs. work up as ordered Dose meds/antibiotics for reduced GFR. Avoid fleets enema. Avoid nephrotoxins/NSAIDs/ iodinated contrast (unless needed emergently) Glycemic control Further work up for as per primary team Thanks for allowing me to participate in care of your patient. Will follow patient with you. Please call if any Qs. had d/w team Dr Heriberto Hernandez Office: [phone] reason for consult; ROBIN and electrolytes abnormalities HPI: pt is a 62 F with hx of HTN, depression who was recently admitted to hospital with ROBIN required few session of HD then improved with cr 1.2, also with infective endocarditis with severe MR but pt refused surgery and decided only for IV antibiotics treatments came as was feeling weak, found to have severe electrolytes depletion and renal consult for ROBIN. pt feels nervous. reports decreased oral intake and c.o loose stool besides that not providing much hx nor recent Iv contrast. noted low BP ROS: she is not able to provide much of ROS. not able to make decisions. Physical Examination: General Appearance: uncomfortable, in no acute respiratory distress, ill appearing and debilitated Vitals reviewed and noted as below Head; Atraumatic, normocephalic ENT: WNL EYES: Pupils are equal, round and reactive to light accommodation. Eye muscles and extraocular movement intact. Sclera is anicteric. Neck; supple no lymphadenopathy, no thyromegaly or bruit Lungs: Normal respiratory rate/effort. Breath sounds b/l decreased at bases Heart: Increased rate. s1s2 normal. No rub or gallop. SM + at apex/LSB Extremities: 2-3+ edema with anasarca. No varicose veins Neurological: Patient is alert awake oriented follow commands Skin: Warm and dry. Normal turgor. No rash. Palpitation: Normal elasticity for age. multiple skin echymoses + Abdomen: Abdomen is soft. Bowel sounds +. There is no abdominal tenderness, no guarding/rigidity no organomegaly Psych: lack insight. anxious MSK: no joint tenderness or swelling. Digits and nails normal, no deformity : kidney or bladder not palpable access: none Labs/imaging reviewed. Past medical history, past surgical history, family history, social history, allergy reviewed and noted as below Family hx: no hx of CKD. Rest non-contributory work up: Hep B/C/HIV neg renal imaging: unremarkable A1c 5.5% UA no protein 1+ blood LINDSEY/ANCA neg, K/L ratio WNLTSAT 9% ferritin 221 Vit D <12.8 PTH 268 FENa 0.3% TTKG 15 Objective - Vital Signs/Intake and Output Vital Signs (last 24 hours): Temp Pulse Resp BP Pulse Ox 97.6 F 118 H 21 116/78 96 09/02/18 08:00 09/02/18 11:00 09/02/18 11:00 09/02/18 10:29 09/02/18 11:00 Intake and Output: 09/02/18 09/02/18 06:59 18:59 Intake Total 1470 925 Output Total 375 55 Balance 1095 870 - Medications Medications: Current Medications Al Hydrox/Mg Hydrox/Simethicone (Maalox Plus 30 Ml) 30 ml PO Q6H PRN PRN Reason: Indigestion / Heartburn Last Admin: 09/01/18 10:44 Dose: 30 ml Ascorbic Acid (Vitamin C 500 Mg Tab) 1,000 mg PO DAILY [facility] Last Admin: 09/02/18 09:42 Dose: 1,000 mg Aspirin (Aspirin Chewable) 81 mg PO DAILY [facility] Last Admin: 09/02/18 09:42 Dose: 81 mg Benztropine Mesylate (Cogentin) 1 mg PO BID [facility] Last Admin: 09/02/18 09:42 Dose: 1 mg Calcium/Vitamin D (Oyster Shell Calcium/Vitamin D 500 Mg-200 Iu) 1 tab PO BID [facility] Last Admin: 09/02/18 09:43 Dose: 1 tab Epoetin Morales (Procrit) 10,000 unit SC TTS [facility] Last Admin: 09/01/18 12:00 Dose: 10,000 unit Ergocalciferol (Drisdol 50,000 Intl Units Cap) 1 cap PO Q7D [facility] Last Admin: 09/01/18 12:10 Dose: 1 cap Ferrous Gluconate (Fergon) 324 mg PO TID [facility] Last Admin: 09/02/18 09:42 Dose: 324 mg Guaifenesin/Dextromethorphan (Robitussin Dm) 5 ml PO Q4H PRN PRN Reason: Cough Last Admin: 09/01/18 13:51 Dose: 5 ml Haloperidol (Haldol) 5 mg PO BID [facility] Last Admin: 09/02/18 10:10 Dose: 5 mg Cefazolin Sodium 1,000 mg/ (Sodium Chloride) 50 mls @ 100 mls/hr IVPB Q8H [facility]; Protocol Last Admin: 09/02/18 05:07 Dose: 100 mls/hr Sodium Bicarbonate 150 meq/ (Dextrose) 1,150 mls @ 45 mls/hr IV .Q24H [facility] Last Admin: 09/02/18 10:11 Dose: 45 mls/hr Potassium Phosphate 15 mmole/ (Sodium Chloride) 255 mls @ 42.5 mls/hr IVPB ONCE ONE Stop: 09/02/18 18:59 Calcium Gluconate 2,000 mg/ (Sodium Chloride) 270 mls @ 125 mls/hr IVPB ONCE ONE Stop: 09/02/18 12:39 Last Admin: 09/02/18 10:10 Dose: 125 mls/hr Influenza Virus Vaccine (Fluzone Quad [id number]) 60 mcg IM .ONCE ONE Stop: 09/03/18 10:01 Magnesium Oxide (Mag-Ox) 400 mg PO BID [facility] Last Admin: 09/02/18 09:42 Dose: 400 mg Multivitamins (Hexavitamin) 1 tab PO DAILY [facility] Last Admin: 09/02/18 09:42 Dose: 1 tab Nystatin (Nystop Topical Powder) 1 applic TOP BID [facility] Stop: 09/15/18 10:01 Last Admin: 09/02/18 09:46 Dose: 1 applic Pantoprazole Sodium (Protonix Ec Tab) 40 mg PO DAILY [facility] Last Admin: 09/02/18 09:43 Dose: 40 mg Pneumococcal Polyvalent Vaccine (Pneumovax 23 Vaccine) 0.5 ml IM .ONCE ONE Stop: 09/03/18 17:09 Potassium Chloride (K-Dur 20 Meq Er Tab) 40 meq PO DAILY [facility] Last Admin: 09/02/18 11:54 Dose: 40 meq Saliva Substitute (First Magic Mouthwash) 10 ml PO QID [facility] Last Admin: 09/02/18 09:41 Dose: 10 ml Sodium Bicarbonate (Sodium Bicarbonate Tab) 1,300 mg PO TID [facility] Last Admin: 09/02/18 09:42 Dose: 1,300 mg Thiamine HCl (Vitamin B1 Inj) 100 mg IV DAILY [facility] Last Admin: 09/02/18 09:43 Dose: 100 mg Vitamin A (Vitamin A & D Oint Ud Foilpak) 0.5 ea TOP Q4 [facility] Last Admin: 09/02/18 11:53 Dose: 0.5 ea Zinc Sulfate (Zinc Sulfate 220 Mg Cap) 220 mg PO DAILY [facility] Last Admin: 09/02/18 09:42 Dose: 220 mg - Labs Labs: 09/02/18 07:56 09/02/18 06:09 PT 25.5 SECONDS (9.7-12.2) H 08/31/18 20:08 INR 2.3 08/31/18 20:08 APTT 34 SECONDS (21-34) 08/31/18 12:32
[2018-09-02] MEDS ORDERED: Potassium Phosphate 15 MMOLE in Sodium Chloride 0.9% 250 ML IVPB ONE (13:00)
--- NOTE | 2018-09-02 13:35 | CP.PCM.CON ---
History of Present Illness - History of Present Illness History of Present Illness: 62 yo W female admitted three days ago with profound hypokalemia, renal insufficiency, respiraroty distress, cough and SOB. Noted to have Hgb-9 which following hydration has dropped to 5 in three days. Reports she had some rectal bleeding over a week ago at home but none since them. Has had multiple colonoscopies in the past but unaware of where and by whom. Stool OB today is negative. Asked to evaluate for possible GI bleed as cause of drop in H/H. Case discussed with ICU attending and resident. Admitted here one month ago with respiratory distress and treeated for SBE as outpatient. Review of Systems - Review of Systems Systems not reviewed;Unavailable: Altered Mental Status Past Patient History - Past Medical History & Family History Past Medical History?: Yes - Past Social History Smoking Status: Never Smoked - CARDIAC Hx Hypercholesterolemia: Yes Hx Hypertension: Yes - PULMONARY Hx Pneumonia: Yes - RENAL Hx Renal Failure: Yes - HEMATOLOGICAL/ONCOLOGICAL Hx Cirrhosis: No Hx Hepatitis A: No Hx Hepatitis B: No Hx Hepatitis C: No Hx Human Immunodeficiency Virus (HIV): No - MUSCULOSKELETAL/RHEUMATOLOGICAL Hx Falls: No - GASTROINTESTINAL Hx Gastrointestinal Disorders: Yes Hx Gastritis: Yes Hx Hemorrhoids: Yes Other/Comment: colon polyps in the past?? - GENITOURINARY/GYNECOLOGICAL Hx Incontinence: Yes - PSYCHIATRIC Hx Depression: Yes Hx Substance Use: No (unknown) - SURGICAL HISTORY Hx Section: Yes - ANESTHESIA Hx Anesthesia: No Hx Anesthesia Reactions: No Hx Malignant Hyperthermia: No Meds Allergies/Adverse Reactions: Allergies Allergy/AdvReac Type Severity Reaction Status Date / Time No Known Allergies Allergy Verified 07/31/18 15:33 - Medications Medications: Current Medications Al Hydrox/Mg Hydrox/Simethicone (Maalox Plus 30 Ml) 30 ml PO Q6H PRN PRN Reason: Indigestion / Heartburn Last Admin: 09/01/18 10:44 Dose: 30 ml Ascorbic Acid (Vitamin C 500 Mg Tab) 1,000 mg PO DAILY [facility] Last Admin: 09/02/18 09:42 Dose: 1,000 mg Aspirin (Aspirin Chewable) 81 mg PO DAILY [facility] Last Admin: 09/02/18 09:42 Dose: 81 mg Benztropine Mesylate (Cogentin) 1 mg PO BID [facility] Last Admin: 09/02/18 09:42 Dose: 1 mg Calcium/Vitamin D (Oyster Shell Calcium/Vitamin D 500 Mg-200 Iu) 1 tab PO BID [facility] Last Admin: 09/02/18 09:43 Dose: 1 tab Epoetin Morales (Procrit) 10,000 unit SC TTS [facility] Last Admin: 09/01/18 12:00 Dose: 10,000 unit Ergocalciferol (Drisdol 50,000 Intl Units Cap) 1 cap PO Q7D [facility] Last Admin: 09/01/18 12:10 Dose: 1 cap Ferrous Gluconate (Fergon) 324 mg PO TID [facility] Last Admin: 09/02/18 13:12 Dose: 324 mg Guaifenesin/Dextromethorphan (Robitussin Dm) 5 ml PO Q4H PRN PRN Reason: Cough Last Admin: 09/01/18 13:51 Dose: 5 ml Haloperidol (Haldol) 5 mg PO BID [facility] Last Admin: 09/02/18 10:10 Dose: 5 mg Cefazolin Sodium 1,000 mg/ (Sodium Chloride) 50 mls @ 100 mls/hr IVPB Q8H [facility]; Protocol Last Admin: 09/02/18 13:08 Dose: 100 mls/hr Sodium Bicarbonate 150 meq/ (Dextrose) 1,150 mls @ 45 mls/hr IV .Q24H [facility] Last Admin: 09/02/18 10:11 Dose: 45 mls/hr Potassium Phosphate 15 mmole/ (Sodium Chloride) 255 mls @ 42.5 mls/hr IVPB ONCE ONE Stop: 09/02/18 18:59 Last Admin: 09/02/18 13:09 Dose: 42.5 mls/hr Influenza Virus Vaccine (Fluzone Quad 8081-5357) 60 mcg IM .ONCE ONE Stop: 09/03/18 10:01 Magnesium Oxide (Mag-Ox) 400 mg PO BID [facility] Last Admin: 09/02/18 09:42 Dose: 400 mg Multivitamins (Hexavitamin) 1 tab PO DAILY [facility] Last Admin: 09/02/18 09:42 Dose: 1 tab Nystatin (Nystop Topical Powder) 1 applic TOP BID [facility] Stop: 09/15/18 10:01 Last Admin: 09/02/18 09:46 Dose: 1 applic Pantoprazole Sodium (Protonix Ec Tab) 40 mg PO DAILY [facility] Last Admin: 11/09/18 09:43 Dose: 40 mg Pneumococcal Polyvalent Vaccine (Pneumovax 23 Vaccine) 0.5 ml IM .ONCE ONE Stop: 09/03/18 17:09 Potassium Chloride (K-Dur 20 Meq Er Tab) 40 meq PO DAILY [facility] Last Admin: 09/02/18 11:54 Dose: 40 meq Saliva Substitute (First Magic Mouthwash) 10 ml PO QID [facility] Last Admin: 09/02/18 13:11 Dose: 10 ml Sodium Bicarbonate (Sodium Bicarbonate Tab) 1,300 mg PO TID [facility] Last Admin: 09/02/18 13:11 Dose: 1,300 mg Thiamine HCl (Vitamin B1 Inj) 100 mg IV DAILY [facility] Last Admin: 09/02/18 09:43 Dose: 100 mg Vitamin A (Vitamin A & D Oint Ud Foilpak) 0.5 ea TOP Q4 [facility] Last Admin: 09/02/18 11:53 Dose: 0.5 ea Zinc Sulfate (Zinc Sulfate 220 Mg Cap) 220 mg PO DAILY [facility] Last Admin: 09/02/18 09:42 Dose: 220 mg Physical Exam - Constitutional Appears: No Acute Distress - Head Exam Head Exam: ATRAUMATIC, NORMOCEPHALIC Additional comments: Cushingoid appearance, in mild respiratory distress. - Eye Exam Eye Exam: EOMI, PERRL - Respiratory Exam Respiratory Exam: Decreased Breath Sounds, Rales - Cardiovascular Exam Cardiovascular Exam: RRR - GI/Abdominal Exam GI & Abdominal Exam: Normal Bowel Sounds, Soft. absent: Organomegaly, Tenderness Additional comments: morbidly obese, Rectal tube with darkish liquid stool. - Rectal Exam Rectal Exam: Black Stool - Extremities Exam Extremities exam: Positive for: pedal edema - Neurological Exam Neurological exam: Alert Additional comments: somewhat confused - Psychiatric Exam Psychiatric exam: Normal Affect, Normal Mood Results - Vital Signs Recent Vital Signs: Last Vital Signs Temp 97.6 F 09/02/18 08:00 Pulse 118 H 09/02/18 11:00 Resp 21 09/02/18 11:00 BP 116/78 09/02/18 10:29 Pulse Ox 96 09/02/18 11:00 - Labs Result Diagrams: 09/02/18 07:56 09/02/18 06:09 Labs: Laboratory Results - last 24 hr 09/01/18 09/01/18 09/01/18 11:47 12:45 13:30 WBC RBC Hgb Hct MCV MCH MCHC RDW Plt Count MPV Neut % (Auto) Lymph % (Auto) [place] % (Auto) Eos % (Auto) Baso % (Auto) Neut # (Auto) Lymph # (Auto) [place] # (Auto) Eos # (Auto) Baso # (Auto) Neutrophils % (Manual) Lymphocytes % (Manual) Monocytes % (Manual) Platelet Estimate Polychromasia Hypochromasia (manual) Anisocytosis (manual) Ovalocytes [place] Cells Sodium Potassium Chloride Carbon Dioxide Anion Gap BUN Creatinine Est GFR ( Amer) Est GFR (Non-Af Amer) Random Glucose Calcium Phosphorus Magnesium Total Bilirubin AST ALT Alkaline Phosphatase Total Protein Albumin Globulin Albumin/Globulin Ratio Urine Eosinophils Negative Ur Random Creatinine 99.4 Ur Random Sodium 16 Ur Random Potassium 50.1 Urine Magnesium 1.5 Stool Occult Blood B-Hydroxybutyrate 0.38 H Blood Type Antibody Screen 09/01/18 09/02/18 09/02/18 14:51 06:09 06:09 WBC 11.0 H RBC 1.71 L Hgb 5.4 L* D Hct 15.4 L MCV 90.1 MCH 31.7 H MCHC 35.2 RDW 16.5 H Plt Count 200 MPV 8.6 Neut % (Auto) 83.8 H Lymph % (Auto) 9.8 L [place] % (Auto) 3.8 Eos % (Auto) 1.7 Baso % (Auto) 0.9 Neut # (Auto) 9.2 H Lymph # (Auto) 1.1 [place] # (Auto) 0.4 Eos # (Auto) 0.2 Baso # (Auto) 0.1 Neutrophils % (Manual) 88 H Lymphocytes % (Manual) 9 L Monocytes % (Manual) 3 Platelet Estimate Normal Polychromasia Slight Hypochromasia (manual) Moderate Anisocytosis (manual) Slight Ovalocytes Slight [place] Cells Slight Sodium 130 L 132 Potassium 4.8 3.3 L Chloride 107 105 Carbon Dioxide 11 L* 16 L Anion Gap 16 14 BUN 24 H 24 H Creatinine 2.6 H 2.4 H Est GFR ( Amer) 23 25 Est GFR (Non-Af Amer) 19 20 Random Glucose 168 H 118 H Calcium 6.6 L 6.7 L Phosphorus 2.4 L 1.7 L Magnesium 2.0 1.9 Total Bilirubin 1.1 0.9 AST 15 11 L D ALT 27 25 Alkaline Phosphatase 88 79 Total Protein 4.7 L 4.6 L Albumin 2.2 L 2.5 L Globulin 2.5 2.1 L Albumin/Globulin Ratio 0.9 L 1.2 Urine Eosinophils Ur Random Creatinine Ur Random Sodium Ur Random Potassium Urine Magnesium Stool Occult Blood B-Hydroxybutyrate Blood Type Antibody Screen 09/02/18 09/02/18 09/02/18 07:56 07:56 08:14 WBC 11.9 H RBC 1.87 L Hgb 5.8 L* Hct 16.7 L MCV 89.5 MCH 31.2 H MCHC 34.9 RDW 16.4 H Plt Count 217 MPV 8.5 Neut % (Auto) 83.7 H Lymph % (Auto) 9.4 L [place] % (Auto) 3.7 Eos % (Auto) 1.7 Baso % (Auto) 1.5 Neut # (Auto) 10.0 H Lymph # (Auto) 1.1 [place] # (Auto) 0.4 Eos # (Auto) 0.2 Baso # (Auto) 0.2 Neutrophils % (Manual) Lymphocytes % (Manual) Monocytes % (Manual) Platelet Estimate Polychromasia Hypochromasia (manual) Anisocytosis (manual) Ovalocytes [place] Cells Sodium Potassium Chloride Carbon Dioxide Anion Gap BUN Creatinine Est GFR ( Amer) Est GFR (Non-Af Amer) Random Glucose Calcium Phosphorus Magnesium Total Bilirubin AST ALT Alkaline Phosphatase Total Protein Albumin Globulin Albumin/Globulin Ratio Urine Eosinophils Ur Random Creatinine Ur Random Sodium Ur Random Potassium Urine Magnesium Stool Occult Blood Negative B-Hydroxybutyrate Blood Type O POSITIVE Antibody Screen Negative Assessment & Plan (1) Anemia in chronic kidney disease Assessment and Plan: Patient with acute on chronic anemia (likely due to renal disease) that occured with hydrartion due to dehydration. Now in moderate CHF. No evidence of blood loss since admission with stool OB- but reports she had blood in her stool 10 days ago at home. Clearly current drop in H/H is not due to acute GI bleeding. Transfuse as per ICU protocol and monitor for CHF. Diuretics before transfusion if possible. IV PPI or H2B is advised. Monitor for active bleeding. Elective GI work up when/if stable or in the event of a life threatening acute bleed. Status: Acute (2) Rectal bleeding Assessment and Plan: as above. Status: Acute
--- NOTE | 2018-09-02 17:43 | CP.PCM.PN ---
Subjective - Date & Time of Evaluation Date of Evaluation: 09/02/18 Time of Evaluation: 09:00 - Subjective Subjective: events noted GI on board transfusion in progress Objective - Vital Signs/Intake and Output Vital Signs (last 24 hours): Temp Pulse Resp BP Pulse Ox 98.0 F 118 H 22 123/78 98 09/02/18 15:54 09/02/18 15:54 09/02/18 15:54 09/02/18 15:54 09/02/18 15:10 Intake and Output: 09/02/18 09/02/18 06:59 18:59 Intake Total 1470 1305.0 Output Total 375 140 Balance 1095 1165.0 - Medications Medications: Current Medications Al Hydrox/Mg Hydrox/Simethicone (Maalox Plus 30 Ml) 30 ml PO Q6H PRN PRN Reason: Indigestion / Heartburn Last Admin: 09/01/18 10:44 Dose: 30 ml Ascorbic Acid (Vitamin C 500 Mg Tab) 1,000 mg PO DAILY [facility] Last Admin: 09/02/18 09:42 Dose: 1,000 mg Aspirin (Aspirin Chewable) 81 mg PO DAILY [facility] Last Admin: 09/02/18 09:42 Dose: 81 mg Benztropine Mesylate (Cogentin) 1 mg PO BID [facility] Last Admin: 09/02/18 09:42 Dose: 1 mg Calcium/Vitamin D (Oyster Shell Calcium/Vitamin D 500 Mg-200 Iu) 1 tab PO BID [facility] Last Admin: 09/02/18 09:43 Dose: 1 tab Epoetin Morales (Procrit) 10,000 unit SC TTS [facility] Last Admin: 09/01/18 12:00 Dose: 10,000 unit Ergocalciferol (Drisdol 50,000 Intl Units Cap) 1 cap PO Q7D [facility] Last Admin: 09/01/18 12:10 Dose: 1 cap Ferrous Gluconate (Fergon) 324 mg PO TID [facility] Last Admin: 09/02/18 13:12 Dose: 324 mg Guaifenesin/Dextromethorphan (Robitussin Dm) 5 ml PO Q4H PRN PRN Reason: Cough Last Admin: 09/01/18 13:51 Dose: 5 ml Haloperidol (Haldol) 5 mg PO BID [facility] Last Admin: 09/02/18 10:10 Dose: 5 mg Cefazolin Sodium 1,000 mg/ (Sodium Chloride) 50 mls @ 100 mls/hr IVPB Q8H [facility]; Protocol Last Admin: 09/02/18 13:08 Dose: 100 mls/hr Potassium Phosphate 15 mmole/ (Sodium Chloride) 255 mls @ 42.5 mls/hr IVPB ONCE ONE Stop: 09/02/18 18:59 Last Admin: 09/02/18 13:09 Dose: 42.5 mls/hr Influenza Virus Vaccine (Fluzone Quad [id number]) 60 mcg IM .ONCE ONE Stop: 09/03/18 10:01 Magnesium Oxide (Mag-Ox) 400 mg PO BID [facility] Last Admin: 09/02/18 09:42 Dose: 400 mg Multivitamins (Hexavitamin) 1 tab PO DAILY [facility] Last Admin: 09/02/18 09:42 Dose: 1 tab Nystatin (Nystop Topical Powder) 1 applic TOP BID [facility] Stop: 09/15/18 10:01 Last Admin: 09/02/18 09:46 Dose: 1 applic Pantoprazole Sodium (Protonix Ec Tab) 40 mg PO DAILY [facility] Last Admin: 09/02/18 09:43 Dose: 40 mg Pneumococcal Polyvalent Vaccine (Pneumovax 23 Vaccine) 0.5 ml IM .ONCE ONE Stop: 09/03/18 17:09 Saliva Substitute (First Magic Mouthwash) 10 ml PO QID [facility] Last Admin: 09/02/18 13:11 Dose: 10 ml Sodium Bicarbonate (Sodium Bicarbonate Tab) 1,300 mg PO TID [facility] Last Admin: 09/02/18 13:11 Dose: 1,300 mg Thiamine HCl (Vitamin B1 Inj) 100 mg IV DAILY [facility] Last Admin: 09/02/18 09:43 Dose: 100 mg Vitamin A (Vitamin A & D Oint Ud Foilpak) 0.5 ea TOP Q4 [facility] Last Admin: 09/02/18 11:53 Dose: 0.5 ea Zinc Sulfate (Zinc Sulfate 220 Mg Cap) 220 mg PO DAILY [facility] Last Admin: 09/02/18 09:42 Dose: 220 mg - Labs Labs: 09/02/18 07:56 09/02/18 06:09 PT 25.5 SECONDS (9.7-12.2) H 08/31/18 20:08 INR 2.3 08/31/18 20:08 APTT 34 SECONDS (21-34) 08/31/18 12:32 - Constitutional Appears: Non-toxic, Chronically Ill - Head Exam Head Exam: NORMOCEPHALIC - Eye Exam Eye Exam: absent: Scleral icterus - ENT Exam ENT Exam: Mucous Membranes Dry - Neck Exam Neck Exam: absent: Lymphadenopathy - Respiratory Exam Respiratory Exam: Decreased Breath Sounds - Cardiovascular Exam Cardiovascular Exam: REGULAR RHYTHM - GI/Abdominal Exam GI & Abdominal Exam: Distended, Soft Assessment and Plan (1) Leukocytosis Status: Acute (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 - Assessment and Plan (Free Text) Assessment: cont iv antibiotics await final cultures hx endocarditis
--- NOTE | 2018-09-02 19:01 | CP.PCM.PN ---
Subjective - Date & Time of Evaluation Date of Evaluation: 09/02/18 Time of Evaluation: 12:30 - Subjective Subjective: clinically same Objective - Vital Signs/Intake and Output Vital Signs (last 24 hours): Temp Pulse Resp BP Pulse Ox 98.2 F 116 H 22 127/70 98 09/02/18 18:40 09/02/18 18:40 09/02/18 18:40 09/02/18 18:40 09/02/18 17:40 Intake and Output: 09/02/18 09/03/18 18:59 06:59 Intake Total 1766.0 Output Total 140 Balance 1626.0 - Medications Medications: Current Medications Al Hydrox/Mg Hydrox/Simethicone (Maalox Plus 30 Ml) 30 ml PO Q6H PRN PRN Reason: Indigestion / Heartburn Last Admin: 09/01/18 10:44 Dose: 30 ml Ascorbic Acid (Vitamin C 500 Mg Tab) 1,000 mg PO DAILY [facility] Last Admin: 09/02/18 09:42 Dose: 1,000 mg Aspirin (Aspirin Chewable) 81 mg PO DAILY [facility] Last Admin: 09/02/18 09:42 Dose: 81 mg Benztropine Mesylate (Cogentin) 1 mg PO BID [facility] Last Admin: 09/02/18 18:52 Dose: 1 mg Calcium/Vitamin D (Oyster Shell Calcium/Vitamin D 500 Mg-200 Iu) 1 tab PO BID [facility] Last Admin: 09/02/18 18:57 Dose: 1 tab Epoetin Morales (Procrit) 10,000 unit SC TTS [facility] Last Admin: 09/01/18 12:00 Dose: 10,000 unit Ergocalciferol (Drisdol 50,000 Intl Units Cap) 1 cap PO Q7D [facility] Last Admin: 09/01/18 12:10 Dose: 1 cap Ferrous Gluconate (Fergon) 324 mg PO TID [facility] Last Admin: 09/02/18 18:53 Dose: 324 mg Guaifenesin/Dextromethorphan (Robitussin Dm) 5 ml PO Q4H PRN PRN Reason: Cough Last Admin: 09/01/18 13:51 Dose: 5 ml Haloperidol (Haldol) 5 mg PO BID [facility] Last Admin: 09/02/18 18:53 Dose: 5 mg Cefazolin Sodium 1,000 mg/ (Sodium Chloride) 50 mls @ 100 mls/hr IVPB Q8H [facility]; Protocol Last Admin: 09/02/18 13:08 Dose: 100 mls/hr Influenza Virus Vaccine (Fluzone Quad 0812-1417) 60 mcg IM .ONCE ONE Stop: 09/03/18 10:01 Magnesium Oxide (Mag-Ox) 400 mg PO BID [facility] Last Admin: 09/02/18 18:57 Dose: 400 mg Multivitamins (Hexavitamin) 1 tab PO DAILY [facility] Last Admin: 09/02/18 09:42 Dose: 1 tab Nystatin (Nystop Topical Powder) 1 applic TOP BID [facility] Stop: 09/15/18 10:01 Last Admin: 09/02/18 18:53 Dose: 1 applic Pantoprazole Sodium (Protonix Ec Tab) 40 mg PO DAILY [facility] Last Admin: 09/02/18 09:43 Dose: 40 mg Pneumococcal Polyvalent Vaccine (Pneumovax 23 Vaccine) 0.5 ml IM .ONCE ONE Stop: 09/03/18 17:09 Saliva Substitute (First Magic Mouthwash) 10 ml PO QID [facility] Last Admin: 09/02/18 18:53 Dose: 10 ml Sodium Bicarbonate (Sodium Bicarbonate Tab) 1,300 mg PO TID [facility] Last Admin: 09/02/18 18:54 Dose: 1,300 mg Thiamine HCl (Vitamin B1 Inj) 100 mg IV DAILY [facility] Last Admin: 09/02/18 09:43 Dose: 100 mg Vitamin A (Vitamin A & D Oint Ud Foilpak) 0.5 ea TOP Q4 [facility] Last Admin: 09/02/18 18:54 Dose: 0.5 ea Zinc Sulfate (Zinc Sulfate 220 Mg Cap) 220 mg PO DAILY [facility] Last Admin: 09/02/18 09:42 Dose: 220 mg - Labs Labs: 09/02/18 07:56 09/02/18 06:09 PT 25.5 SECONDS (9.7-12.2) H 08/31/18 20:08 INR 2.3 08/31/18 20:08 APTT 34 SECONDS (21-34) 08/31/18 12:32 - Constitutional Appears: Well - Head Exam Head Exam: ATRAUMATIC, NORMAL INSPECTION, NORMOCEPHALIC - Eye Exam Eye Exam: EOMI, Normal appearance, PERRL Pupil Exam: NORMAL ACCOMODATION, PERRL - ENT Exam ENT Exam: Mucous Membranes Moist, Normal Exam - Neck Exam Neck Exam: Full ROM, Normal Inspection. absent: Lymphadenopathy - Respiratory Exam Respiratory Exam: Decreased Breath Sounds - Cardiovascular Exam Cardiovascular Exam: REGULAR RHYTHM, +S1, +S2 - GI/Abdominal Exam GI & Abdominal Exam: Soft, Diminished Bowel Sounds - Rectal Exam Rectal Exam: Deferred
[2018-09-03] MEDS: Vitamins A & D Oint UD Foilpak TOP SCH ×6 (00:15→20:30)
[2018-09-03 00:31] LABS: SQUAMOUS EPITHIAL 1 /hpf (0-5); URINE BACTERIA RARE (<OCC); URINE BILIRUBIN NEGATIVE (NEGATIVE); URINE BLOOD 1+ (NEGATIVE); URINE CLARITY Clear (Clear); URINE COLOR Yellow (YELLOW); URINE GLUCOSE (UA) NORMAL (Normal); URINE LEUKOCYTE ESTERASE 3+ Leu/uL (Negative); URINE PROTEIN NEGATIVE (NEGATIVE); URINE UROBILINOGEN NORMAL mg/dL (0.2-1.0)
[2018-09-03 06:12] LABS: BASO # 0.1 K/uL (0.0-0.2); BASO % 0.8 % (0.0-2.0); EOS # 0.1 K/uL (0.0-0.7); HEMOGLOBIN 8.3 g/dL (11.0-16.0); LYMPH # 1.9 K/uL (1.0-4.3); LYMPH % 17.4 % (20.0-40.0); MEAN CORPUSCULAR HGB CONC 34.9 g/dL (33.0-37.0); MEAN PLATELET VOLUME 8.8 fL (7.2-11.7); MONO # 0.5 K/uL (0.0-0.8); MONO % 4.9 % (0.0-10.0); NEUT # 8.4 K/uL (1.8-7.0); NEUT % 75.9 % (50.0-75.0); NRBC % 0.3 % (0.0-2.0); RBC 2.67 Mil/uL (3.80-5.20); RED CELL DISTRIBUTION WIDTH 15.7 % (11.5-14.5); WHITE BLOOD COUNT 11.1 K/uL (4.8-10.8)
[2018-09-03 06:36] LABS: ALB/GLOB RATIO 1.1 (1.0-2.1); ALBUMIN 2.6 g/dL (3.5-5.0)
[2018-09-03] MEDS: Multiple Vitamins Tab PO SCH ×2 (09:39→09:40)
[2018-09-03] MEDS: Calcium-Vit D 500 mg-200 Units Tab UD PO SCH ×3 (09:39→17:37)
[2018-09-03] MEDS: Magnesium Oxide 400 mg Tab UD PO SCH (09:40)
[2018-09-03] MEDS: Mag&Al/Simet/Diphen/Lido 237 ML KIT PO SCH ×2 (09:40→09:41)
[2018-09-03] MEDS: Thiamine 100 mg/ml Inj IV SCH (09:41)
[2018-09-03] MEDS: Epoetin Alfa 10,000 unit/ml Dialysis SC SCH (09:42)
--- NOTE | 2018-09-03 09:46 | CP.CCUPN ---
CCU Subjective - Physician Review Events Since Last Encounter (Free Text): 09/03/18 09:45 Patient is a 62-year-old female with a history of chronic renal insufficiency, hypertension, high cholesterol and depression. Patient was hospitalized recently with acute respiratory failure, acute renal insufficiency. She also received hemodialysis during the last time. Patient was noted to have is endocarditis, and she was on intravenous antibiotic in the house. But this time patient was admitted to the hospital and into the intensive care unit with severe hypokalemia and hypotension. Patient was treated with potassium supplementation. Yesterday while she was receiving blood because of the black stools and also anemia, GI evaluation was called in, and she had a episode of respiratory distress. Patient was given Lasix. Today she is feeling slightly better. She still having significant rales. Secretions in the oral cavity noted. But patient is not productively coughing out. Her mucus is extremely thick and yellow discoloration. On examination: Vital signs seems to be stable. But tachycardia noted. Chest bilateral rales and wheezing noted. Regular heart sound. Patient has a multiple skin excoriations, generalized edema noted. Labs reviewed Hemoglobin is better Chest x-ray mild congestion is noted Assessment and recognition: 62-year-old female with a history of renal insufficiency, history of hypertension, high cholesterol and depression. Patient getting antibiotic for endocarditis which we are continuing the right now. Significant electrolyte imbalance, supplementation on. Will monitor the hemoglobin. Patient has a significant secretions in the mouth, also possible aspiration Currently on antibiotic. Urine culture showing evidence of Escherichia coli. ESBL Escherichia coli noted. Will get infectious disease evaluation and management. Patient has a PICC line. Overall prognosis is very poor Diuretics as needed. Patient has a skin changes secondary to likely drug-induced, allergic reaction. Unclear Will closely monitor. CCU Objective - Vital Signs / Intake & Output Vital Signs (Last 4 hours): Vital Signs Pulse Resp BP Pulse Ox 09/03/18 07:38 118 H 20 138/81 96 09/03/18 07:00 116 H 18 99 09/03/18 06:38 119 H 21 152/73 H 94 L 09/03/18 06:00 127 H 19 97 Intake and Output (Last 8hrs): Intake & Output 09/02/18 09/03/18 09/03/18 22:59 06:59 14:59 Intake Total 932.5 50 0 Output Total 690 850 Balance 242.5 -800 0 Weight 247 lb 9.266 oz Intake: Intake, IV Amount 407.5 50 0 Left PICC 192.5 Right Wrist 215 50 0 Oral 0 Blood Product 475 Red Blood Cells Cpd As1 150 Lr Unit [id number] Red Blood Cells Cpd As1 325 Lr Unit [id number] Other 50 Red Blood Cells Cpd As1 50 Lr Unit [id number] Output: Urine 690 650 Urethral ([place]) 690 650 Stool 200 - Physical Exam Head: Positive for: Atraumatic, Normocephalic Pupils: Positive for: PERRL Extroacular Muscles: Positive for: EOMI Conjunctiva: Positive for: Normal Mouth: Positive for: Dry (oral mucosa lesions and tenderness when asked to open mouth and stick out tongue ), Normal Tounge (tenderness). Negative for: Moist Mucous Membranes Nose (External): Positive for: Atraumatic Nose (Internal): Positive for: Normal Inspection Neck: Positive for: Normal Range of Motion Respiratory/Chest: Positive for: Clear to Auscultation. Negative for: Respiratory Distress, Accessory Muscle Use, Tachypneic Cardiovascular: Positive for: Murmurs (systolic crescendo-decrescendo murmur ), Normal S1, S2 Abdomen: Positive for: Tenderness (generalized ). Negative for: Distention, Peritoneal Signs, McBurney's Point Tender, Rovsing's Sign Present Genitourinary/Pelvic Exam: Negative for: Normal External Genitalia (sloughing of the skin located on mons pubis ) Back: Positive for: Paraspinal Tenderness Upper Extremity: Positive for: Edema (bilateral edema, bilateral bruising, bilateral erythema ), NORMAL PULSES. Negative for: Normal Inspection, Deformity Lower Extremity: Positive for: Edema (bilateral lower extremity edema with diffuse bruising in lower extremities bilaterally. Scattered pink papules in bilateral knees and shins) Neurological: Positive for: GCS=15, CN II-XII Intact, Speech Normal Skin: Positive for: Warm, Dry Psychiatric: Positive for: Alert, Oriented x 3, Normal Insight, Normal Concentration - Medications Active Medications: Active Medications Generic Name Dose Route Start Last Admin Trade Name Freq PRN Reason Stop Dose Admin Al Hydrox/Mg Hydrox/Simethicone 30 ml 09/01/18 09:55 09/01/18 10:44 Maalox Plus 30 Ml PO 30 ml Q6H PRN Administration Indigestion / Heartburn Ascorbic Acid 1,000 mg 09/01/18 10:00 09/03/18 09:39 Vitamin C 500 Mg Tab PO 1,000 mg DAILY JOSE Administration Aspirin 81 mg 09/01/18 10:00 09/03/18 09:40 Aspirin Chewable PO 81 mg DAILY JOSE Administration Calcium/Vitamin D 1 tab 09/01/18 12:00 09/03/18 09:39 Oyster Shell Calcium/Vitamin D 500 Mg-200 Iu PO 1 tab BID JOSE Administration Epoetin Morales 10,000 unit 09/01/18 12:00 09/01/18 12:00 Procrit SC 10,000 unit TTS JOSE Administration Ergocalciferol 1 cap 09/01/18 12:00 09/01/18 12:10 Drisdol 50,000 Intl Units Cap PO 1 cap Q7D JOSE Administration Ferrous Gluconate 324 mg 09/01/18 14:00 09/03/18 09:40 Fergon PO 324 mg TID JOSE Administration Cefazolin Sodium 1,000 mg/ 50 mls @ 100 mls/hr 08/31/18 21:00 09/03/18 06:00 Sodium Chloride IVPB 100 mls/hr Q8H JOSE Administration Protocol Potassium Chloride 20 meq in 100 mls @ 50 mls/hr 09/03/18 08:14 09/03/18 08:38 Potassium Chloride 20 Meq/100 Ml IVPB 09/03/18 10:13 50 mls/hr ONCE ONE Administration Influenza Virus Vaccine 60 mcg 09/03/18 10:00 Fluzone Quad [id number] IM 09/03/18 10:01 .ONCE ONE Magnesium Oxide 400 mg 09/01/18 11:00 09/03/18 09:40 Mag-Ox PO 400 mg BID JOSE Administration Multivitamins 1 tab 09/01/18 10:45 09/03/18 09:39 Hexavitamin PO 1 tab DAILY JOSE Administration Nystatin 1 applic 09/01/18 10:00 09/02/18 18:53 Nystop Topical Powder TOP 09/15/18 10:01 1 applic BID JOSE Administration Pantoprazole Sodium 40 mg 09/03/18 10:00 Protonix Inj IVP DAILY [facility] Pneumococcal Polyvalent Vaccine 0.5 ml 09/03/18 17:08 Pneumovax 23 Vaccine IM 09/03/18 17:09 .ONCE ONE Saliva Substitute 10 ml 09/01/18 10:00 09/03/18 09:41 First Magic Mouthwash PO 10 ml QID JOSE Administration Sodium Bicarbonate 1,300 mg 09/01/18 11:00 09/03/18 09:39 Sodium Bicarbonate Tab PO 1,300 mg TID JOSE Administration Thiamine HCl 100 mg 09/01/18 16:30 09/02/18 09:43 Vitamin B1 Inj IV 100 mg DAILY JOSE Administration Vitamin A 0.5 ea 08/31/18 16:00 09/03/18 06:30 Vitamin A & D Oint Ud Foilpak TOP 0.5 ea Q4 JOSE Administration Zinc Sulfate 220 mg 09/01/18 10:00 09/03/18 09:39 Zinc Sulfate 220 Mg Cap PO 220 mg DAILY JOSE Administration - Patient Studies Lab Studies: Microbiology Studies 09/01/18 12:45 Urine Culture - Final Urine,Catheterized Escherichia Coli 08/31/18 21:36 Blood Culture - Preliminary Blood-Venous NO GROWTH AFTER 48 HOURS 08/31/18 21:36 Blood Culture - Preliminary Blood-Venous NO GROWTH AFTER 48 HOURS Lab Studies 09/03/18 09/03/18 09/03/18 Range/Units 05:59 05:59 01:15 WBC 11.1 H (4.8-10.8) K/uL RBC 2.67 L (3.80-5.20) Mil/uL Hgb 8.3 L D (11.0-16.0) g/dL Hct 23.7 L (34.0-47.0) % MCV 89.0 (81.0-99.0) fL MCH 31.0 (27.0-31.0) pg MCHC 34.9 (33.0-37.0) g/dL RDW 15.7 H (11.5-14.5) % Plt Count 188 (130-400) K/uL MPV 8.8 (7.2-11.7) fL Neut % (Auto) 75.9 H (50.0-75.0) % Lymph % (Auto) 17.4 L (20.0-40.0) % Rankin % (Auto) 4.9 (0.0-10.0) % Eos % (Auto) 1.0 (0.0-4.0) % Baso % (Auto) 0.8 (0.0-2.0) % Neut # (Auto) 8.4 H (1.8-7.0) K/uL Lymph # (Auto) 1.9 (1.0-4.3) K/uL Rankin # (Auto) 0.5 (0.0-0.8) K/uL Eos # (Auto) 0.1 (0.0-0.7) K/uL Baso # (Auto) 0.1 (0.0-0.2) K/uL Sodium 138 (132-148) mmol/L Potassium 3.3 L (3.6-5.2) mmol/L Chloride 107 (98-107) mmol/L Carbon Dioxide 18 L (22-30) mmol/L Anion Gap 16 (10-20) BUN 23 H (7-17) mg/dL Creatinine 2.3 H (0.7-1.2) mg/dL Est GFR ( Amer) 26 Est GFR (Non-Af Amer) 21 Random Glucose 105 (65-105) mg/dL Calcium 8.0 L (8.6-10.4) mg/dl Phosphorus 2.6 (2.5-4.5) mg/dL Magnesium 1.8 (1.6-2.3) mg/dL Total Bilirubin 0.8 (0.2-1.3) mg/dL AST 12 L (14-36) U/L ALT 16 (9-52) U/L Alkaline Phosphatase 74 (38-126) U/L Total Protein 4.8 L (6.3-8.3) g/dL Albumin 2.6 L (3.5-5.0) g/dL Globulin 2.3 (2.2-3.9) gm/dL Albumin/Globulin Ratio 1.1 (1.0-2.1) Urine Color (YELLOW) Urine Clarity (Clear) Urine pH (5.0-8.0) Ur Specific [place] (1.003-1.030) Urine Protein (NEGATIVE) mg/dL Urine Glucose (UA) (Normal) mg/dL Urine Ketones (NEGATIVE) mg/dL Urine Blood (NEGATIVE) Urine Nitrate (NEGATIVE) Urine Bilirubin (NEGATIVE) Urine Urobilinogen (0.2-1.0) mg/dL Ur Leukocyte Esterase (Negative) [place]/uL Urine WBC (Auto) (0-5) /hpf Urine RBC (Auto) (0-3) /hpf Ur Squamous Epith Cells (0-5) /hpf Urine Bacteria (<OCC) Hyaline Casts (0-2) /lpf Urine Yeast (Budding) (NEGATIVE) /hpf Stool Occult Blood Positive H (NEGATIVE) Blood Type Antibody Screen Tx React Basic Work-up (COMPATIBLE) Clerical Work Check Pre-Trans Blood Type Pre-Trans Vis Hemolysis Pre-Tx Ab Screen (Gel) Post-Trans Blood Type Post-Tx Visible Hemolys Post-Tx Ab Screen (Gel) Post-Trans [place] Poly (NEGATIVE) 09/03/18 09/03/18 09/03/18 Range/Units 00:03 00:03 00:03 WBC (4.8-10.8) K/uL RBC (3.80-5.20) Mil/uL Hgb (11.0-16.0) g/dL Hct (34.0-47.0) % MCV (81.0-99.0) fL MCH (27.0-31.0) pg MCHC (33.0-37.0) g/dL RDW (11.5-14.5) % Plt Count (130-400) K/uL MPV (7.2-11.7) fL Neut % (Auto) (50.0-75.0) % Lymph % (Auto) (20.0-40.0) % Rankin % (Auto) (0.0-10.0) % Eos % (Auto) (0.0-4.0) % Baso % (Auto) (0.0-2.0) % Neut # (Auto) (1.8-7.0) K/uL Lymph # (Auto) (1.0-4.3) K/uL Rankin # (Auto) (0.0-0.8) K/uL Eos # (Auto) (0.0-0.7) K/uL Baso # (Auto) (0.0-0.2) K/uL Sodium (132-148) mmol/L Potassium (3.6-5.2) mmol/L Chloride (98-107) mmol/L Carbon Dioxide (22-30) mmol/L Anion Gap (10-20) BUN (7-17) mg/dL Creatinine (0.7-1.2) mg/dL Est GFR ( Amer) Est GFR (Non-Af Amer) Random Glucose (65-105) mg/dL Calcium (8.6-10.4) mg/dl Phosphorus (2.5-4.5) mg/dL Magnesium (1.6-2.3) mg/dL Total Bilirubin 1.0 (0.2-1.3) mg/dL AST (14-36) U/L ALT (9-52) U/L Alkaline Phosphatase (38-126) U/L Total Protein (6.3-8.3) g/dL Albumin (3.5-5.0) g/dL Globulin (2.2-3.9) gm/dL Albumin/Globulin Ratio (1.0-2.1) Urine Color Yellow (YELLOW) Urine Clarity Clear (Clear) Urine pH 6.0 (5.0-8.0) Ur Specific [place] 1.008 (1.003-1.030) Urine Protein Negative (NEGATIVE) mg/dL Urine Glucose (UA) Normal (Normal) mg/dL Urine Ketones Negative (NEGATIVE) mg/dL Urine Blood 1+ H (NEGATIVE) Urine Nitrate Negative (NEGATIVE) Urine Bilirubin Negative (NEGATIVE) Urine Urobilinogen Normal (0.2-1.0) mg/dL Ur Leukocyte Esterase 3+ H (Negative) [place]/uL Urine WBC (Auto) 35 H (0-5) /hpf Urine RBC (Auto) 5 H (0-3) /hpf Ur Squamous Epith Cells 1 (0-5) /hpf Urine Bacteria Rare (<OCC) Hyaline Casts 3-5 H (0-2) /lpf Urine Yeast (Budding) Occ H (NEGATIVE) /hpf Stool Occult Blood (NEGATIVE) Blood Type Antibody Screen Tx React Basic Work-up Compatible (COMPATIBLE) Clerical Work Check No discrepancy Pre-Trans Blood Type O POSITIVE Pre-Trans Vis Hemolysis No hemolysis Pre-Tx Ab Screen (Gel) Negative Post-Trans Blood Type O POSITIVE Post-Tx Visible Hemolys No hemolysis Post-Tx Ab Screen (Gel) Negative Post-Trans [place] Poly Negative (NEGATIVE) 09/02/18 Range/Units 08:14 WBC (4.8-10.8) K/uL RBC (3.80-5.20) Mil/uL Hgb (11.0-16.0) g/dL Hct (34.0-47.0) % MCV (81.0-99.0) fL MCH (27.0-31.0) pg MCHC (33.0-37.0) g/dL RDW (11.5-14.5) % Plt Count (130-400) K/uL MPV (7.2-11.7) fL Neut % (Auto) (50.0-75.0) % Lymph % (Auto) (20.0-40.0) % Rankin % (Auto) (0.0-10.0) % Eos % (Auto) (0.0-4.0) % Baso % (Auto) (0.0-2.0) % Neut # (Auto) (1.8-7.0) K/uL Lymph # (Auto) (1.0-4.3) K/uL Rankin # (Auto) (0.0-0.8) K/uL Eos # (Auto) (0.0-0.7) K/uL Baso # (Auto) (0.0-0.2) K/uL Sodium (132-148) mmol/L Potassium (3.6-5.2) mmol/L Chloride (98-107) mmol/L Carbon Dioxide (22-30) mmol/L Anion Gap (10-20) BUN (7-17) mg/dL Creatinine (0.7-1.2) mg/dL Est GFR ( Amer) Est GFR (Non-Af Amer) Random Glucose (65-105) mg/dL Calcium (8.6-10.4) mg/dl Phosphorus (2.5-4.5) mg/dL Magnesium (1.6-2.3) mg/dL Total Bilirubin (0.2-1.3) mg/dL AST (14-36) U/L ALT (9-52) U/L Alkaline Phosphatase (38-126) U/L Total Protein (6.3-8.3) g/dL Albumin (3.5-5.0) g/dL Globulin (2.2-3.9) gm/dL Albumin/Globulin Ratio (1.0-2.1) Urine Color (YELLOW) Urine Clarity (Clear) Urine pH (5.0-8.0) Ur Specific [place] (1.003-1.030) Urine Protein (NEGATIVE) mg/dL Urine Glucose (UA) (Normal) mg/dL Urine Ketones (NEGATIVE) mg/dL Urine Blood (NEGATIVE) Urine Nitrate (NEGATIVE) Urine Bilirubin (NEGATIVE) Urine Urobilinogen (0.2-1.0) mg/dL Ur Leukocyte Esterase (Negative) [place]/uL Urine WBC (Auto) (0-5) /hpf Urine RBC (Auto) (0-3) /hpf Ur Squamous Epith Cells (0-5) /hpf Urine Bacteria (<OCC) Hyaline Casts (0-2) /lpf Urine Yeast (Budding) (NEGATIVE) /hpf Stool Occult Blood (NEGATIVE) Blood Type O POSITIVE Antibody Screen Negative Tx React Basic Work-up (COMPATIBLE) Clerical Work Check Pre-Trans Blood Type Pre-Trans Vis Hemolysis Pre-Tx Ab Screen (Gel) Post-Trans Blood Type Post-Tx Visible Hemolys Post-Tx Ab Screen (Gel) Post-Trans [place] Poly (NEGATIVE) Laboratory Results - last 24 hr 09/02/18 09/03/18 09/03/18 08:14 00:03 00:03 WBC RBC Hgb Hct MCV MCH MCHC RDW Plt Count MPV Neut % (Auto) Lymph % (Auto) Rankin % (Auto) Eos % (Auto) Baso % (Auto) Neut # (Auto) Lymph # (Auto) Rankin # (Auto) Eos # (Auto) Baso # (Auto) Sodium Potassium Chloride Carbon Dioxide Anion Gap BUN Creatinine Est GFR ( Amer) Est GFR (Non-Af Amer) Random Glucose Calcium Phosphorus Magnesium Total Bilirubin 1.0 AST ALT Alkaline Phosphatase Total Protein Albumin Globulin Albumin/Globulin Ratio Urine Color Yellow Urine Clarity Clear Urine pH 6.0 Ur Specific [place] 1.008 Urine Protein Negative Urine Glucose (UA) Normal Urine Ketones Negative Urine Blood 1+ H Urine Nitrate Negative Urine Bilirubin Negative Urine Urobilinogen Normal Ur Leukocyte Esterase 3+ H Urine WBC (Auto) 35 H Urine RBC (Auto) 5 H Ur Squamous Epith Cells 1 Urine Bacteria Rare Hyaline Casts 3-5 H Urine Yeast (Budding) Occ H Stool Occult Blood Blood Type O POSITIVE Antibody Screen Negative Tx React Basic Work-up Clerical Work Check Pre-Trans Blood Type Pre-Trans Vis Hemolysis Pre-Tx Ab Screen (Gel) Post-Trans Blood Type Post-Tx Visible Hemolys Post-Tx Ab Screen (Gel) Post-Trans [place] Poly 09/03/18 09/03/18 09/03/18 00:03 01:15 05:59 WBC 11.1 H RBC 2.67 L Hgb 8.3 L D Hct 23.7 L MCV 89.0 MCH 31.0 MCHC 34.9 RDW 15.7 H Plt Count 188 MPV 8.8 Neut % (Auto) 75.9 H Lymph % (Auto) 17.4 L Rankin % (Auto) 4.9 Eos % (Auto) 1.0 Baso % (Auto) 0.8 Neut # (Auto) 8.4 H Lymph # (Auto) 1.9 Rankin # (Auto) 0.5 Eos # (Auto) 0.1 Baso # (Auto) 0.1 Sodium Potassium Chloride Carbon Dioxide Anion Gap BUN Creatinine Est GFR ( Amer) Est GFR (Non-Af Amer) Random Glucose Calcium Phosphorus Magnesium Total Bilirubin AST ALT Alkaline Phosphatase Total Protein Albumin Globulin Albumin/Globulin Ratio Urine Color Urine Clarity Urine pH Ur Specific [place] Urine Protein Urine Glucose (UA) Urine Ketones Urine Blood Urine Nitrate Urine Bilirubin Urine Urobilinogen Ur Leukocyte Esterase Urine WBC (Auto) Urine RBC (Auto) Ur Squamous Epith Cells Urine Bacteria Hyaline Casts Urine Yeast (Budding) Stool Occult Blood Positive H Blood Type Antibody Screen Tx React Basic Work-up Compatible Clerical Work Check No discrepancy Pre-Trans Blood Type O POSITIVE Pre-Trans Vis Hemolysis No hemolysis Pre-Tx Ab Screen (Gel) Negative Post-Trans Blood Type O POSITIVE Post-Tx Visible Hemolys No hemolysis Post-Tx Ab Screen (Gel) Negative Post-Trans [place] Poly Negative 09/03/18 05:59 WBC RBC Hgb Hct MCV MCH MCHC RDW Plt Count MPV Neut % (Auto) Lymph % (Auto) Rankin % (Auto) Eos % (Auto) Baso % (Auto) Neut # (Auto) Lymph # (Auto) Rankin # (Auto) Eos # (Auto) Baso # (Auto) Sodium 138 Potassium 3.3 L Chloride 107 Carbon Dioxide 18 L Anion Gap 16 BUN 23 H Creatinine 2.3 H Est GFR ( Amer) 26 Est GFR (Non-Af Amer) 21 Random Glucose 105 Calcium 8.0 L Phosphorus 2.6 Magnesium 1.8 Total Bilirubin 0.8 AST 12 L ALT 16 Alkaline Phosphatase 74 Total Protein 4.8 L Albumin 2.6 L Globulin 2.3 Albumin/Globulin Ratio 1.1 Urine Color Urine Clarity Urine pH Ur Specific [place] Urine Protein Urine Glucose (UA) Urine Ketones Urine Blood Urine Nitrate Urine Bilirubin Urine Urobilinogen Ur Leukocyte Esterase Urine WBC (Auto) Urine RBC (Auto) Ur Squamous Epith Cells Urine Bacteria Hyaline Casts Urine Yeast (Budding) Stool Occult Blood Blood Type Antibody Screen Tx React Basic Work-up Clerical Work Check Pre-Trans Blood Type Pre-Trans Vis Hemolysis Pre-Tx Ab Screen (Gel) Post-Trans Blood Type Post-Tx Visible Hemolys Post-Tx Ab Screen (Gel) Post-Trans [place] Poly Critical Care Progress Note - Nutrition Nutrition: Nutrition Category Date Time Status Dysphagia/Modified Consistency Diet [DIET] Diets 09/02/18 Breakfast Active
[2018-09-03] MEDS ORDERED: Influenza Vaccine 60 MCG/0.5 ML SYR (3 yr & up) IM ONE (10:00)
--- NOTE | 2018-09-03 12:02 | CP.PCM.PN ---
Subjective - Date & Time of Evaluation Date of Evaluation: 09/03/18 Time of Evaluation: 12:00 - Subjective Subjective: Patient denies having abdominal pain, nausea, vomiting, She had one bowel movement today, formed. CBC today shows HGB 8.3. Objective - Vital Signs/Intake and Output Vital Signs (last 24 hours): Temp Pulse Resp BP Pulse Ox 99.1 F 125 H 23 139/87 79 L 09/03/18 08:00 09/03/18 10:38 09/03/18 10:38 09/03/18 10:38 09/03/18 10:38 Intake and Output: 09/03/18 09/03/18 06:59 18:59 Intake Total 436 100 Output Total 1500 175 Balance -1064 -75 - Medications Medications: Current Medications Al Hydrox/Mg Hydrox/Simethicone (Maalox Plus 30 Ml) 30 ml PO Q6H PRN PRN Reason: Indigestion / Heartburn Last Admin: 09/01/18 10:44 Dose: 30 ml Ascorbic Acid (Vitamin C 500 Mg Tab) 1,000 mg PO DAILY [facility] Last Admin: 09/03/18 09:39 Dose: 1,000 mg Aspirin (Aspirin Chewable) 81 mg PO DAILY [facility] Last Admin: 09/03/18 09:45 Dose: Not Given Calcium/Vitamin D (Oyster Shell Calcium/Vitamin D 500 Mg-200 Iu) 1 tab PO BID [facility] Last Admin: 09/02/18 18:57 Dose: 1 tab Epoetin Morales (Procrit) 10,000 unit SC TTS [facility] Last Admin: 09/03/18 09:42 Dose: 10,000 unit Ergocalciferol (Drisdol 50,000 Intl Units Cap) 1 cap PO Q7D [facility] Last Admin: 09/01/18 12:10 Dose: 1 cap Ferrous Gluconate (Fergon) 324 mg PO TID [facility] Last Admin: 09/03/18 09:40 Dose: Not Given Cefazolin Sodium 1,000 mg/ (Sodium Chloride) 50 mls @ 100 mls/hr IVPB Q8H [facility]; Protocol Last Admin: 09/03/18 06:00 Dose: 100 mls/hr Magnesium Oxide (Mag-Ox) 400 mg PO BID [facility] Last Admin: 09/02/18 18:57 Dose: 400 mg Multivitamins (Hexavitamin) 1 tab PO DAILY [facility] Last Admin: 09/03/18 09:40 Dose: Not Given Nystatin (Nystop Topical Powder) 1 applic TOP BID [facility] Stop: 09/15/18 10:01 Last Admin: 09/03/18 09:44 Dose: 1 applic Pantoprazole Sodium (Protonix Inj) 40 mg IVP DAILY [facility] Last Admin: 09/03/18 09:41 Dose: 40 mg Pneumococcal Polyvalent Vaccine (Pneumovax 23 Vaccine) 0.5 ml IM .ONCE ONE Stop: 09/03/18 17:09 Saliva Substitute (First Magic Mouthwash) 10 ml PO QID [facility] Last Admin: 09/03/18 09:40 Dose: Not Given Sodium Bicarbonate (Sodium Bicarbonate Tab) 1,300 mg PO TID [facility] Last Admin: 09/03/18 09:39 Dose: 1,300 mg Thiamine HCl (Vitamin B1 Inj) 100 mg IV DAILY [facility] Last Admin: 09/03/18 09:41 Dose: 100 mg Vitamin A (Vitamin A & D Oint Ud Foilpak) 0.5 ea TOP Q4 [facility] Last Admin: 09/03/18 09:42 Dose: 0.5 ea Zinc Sulfate (Zinc Sulfate 220 Mg Cap) 220 mg PO DAILY [facility] Last Admin: 09/03/18 09:39 Dose: 220 mg - Labs Labs: 09/03/18 05:59 09/03/18 05:59 PT 25.5 SECONDS (9.7-12.2) H 08/31/18 20:08 INR 2.3 08/31/18 20:08 APTT 34 SECONDS (21-34) 08/31/18 12:32 - Constitutional Appears: In Acute Distress - Head Exam Head Exam: ATRAUMATIC - Eye Exam Eye Exam: EOMI, PERRL - Neck Exam Neck Exam: absent: Lymphadenopathy, Thyromegaly - Respiratory Exam Respiratory Exam: Rhonchi - Cardiovascular Exam Cardiovascular Exam: REGULAR RHYTHM, +S1, +S2. absent: Gallop, Rubs, Murmur - GI/Abdominal Exam GI & Abdominal Exam: Soft, Normal Bowel Sounds. absent: Tenderness, Mass, Organomegaly - Extremities Exam Extremities Exam: absent: Calf Tenderness, Pedal Edema Assessment and Plan (1) Rectal bleeding Assessment & Plan: Hemoglobin improved following transfusion. Will follow CBC. Continue PPI. Consider GI workup (colonoscopy, possible EGD) when stable. Status: Acute
--- NOTE | 2018-09-03 14:27 | CP.PCM.PN ---
Subjective - Date & Time of Evaluation Date of Evaluation: 09/03/18 Time of Evaluation: 14:26 - Subjective Subjective: Nephrology Consultation Note Assessment: critical Acute Kidney Injury (N17.9) likely due to ATN and pre-renal state: recent work up for GN neg HAGMA with ketonemia likely due to ROBIN and ketoacidosis hypovolemic hyponatremia, Hypokalemia, hypocalcemia and hypomagnesemia likely due to GI (due to diarrhoea) and renal loss (was on lasix) with limited oral intake severe hypoalbuminemia with malnutration with anasarca Hypertensive Chronic Kidney Disease (I12.9) Chronic Kidney Disease (N18.9) Stage 3 with 55 mg albuminuria Anemia acute on chronic severe Mitral regurg with infective endocarditis, depression/Anxiety Plan No acute need for dialysis Maintain hemodynamics stable. Avoid hypotension. Patient not on ACEI/ARB due to recent ROBIN Monitor Input/Output, daily weights and renal function with basic metabolic panel started Fe, MVI, and weekly Vit D, OScal D added bicarb supplements. lower bicarb drip. can give lasix if needed. PRBC as needed. had transfusion 09/02/18. supplement lytes as needed agree with IV albumin. Dietary consult. added thiamine as well. avoid correction in serum Na >6-8 meq/24 hrs. work up as ordered Dose meds/antibiotics for reduced GFR. Avoid fleets enema. Avoid nephrot oxins/NSAIDs/ iodinated contrast (unless needed emergently) Glycemic control Further work up for as per primary team Thanks for allowing me to participate in care of your patient. Will follow patient with you. Please call if any Qs. had d/w team Dr Heriberto Hernandez Office: [phone] reason for consult; ROBIN and electrolytes abnormalities HPI: pt is a 62 F with hx of HTN, depression who was recently admitted to hospital with ROBIN required few session of HD then improved with cr 1.2, also with infective endocarditis with severe MR but pt refused surgery and decided only for IV antibiotics treatments came as was feeling weak, found to have severe electrolytes depletion and renal consult for ROBIN. pt feels nervous. reports decreased oral intake and c.o loose stool besides that not providing much hx nor recent Iv contrast. noted low BP ROS: she is not able to provide much of ROS. unable to swallow Physical Examination: General Appearance: uncomfortable, in no acute respiratory distress, ill appearing and debilitated Vitals reviewed and noted as below Head; Atraumatic, normocephalic ENT: WNL EYES: Pupils are equal, round and reactive to light accommodation. Eye muscles and extraocular movement intact. Sclera is anicteric. Neck; supple no lymphadenopathy, no thyromegaly or bruit Lungs: Normal respiratory rate/effort. Breath sounds b/l decreased at bases with gurgling sounds in throat Heart: Increased rate. s1s2 normal. No rub or gallop. SM + at apex/LSB Extremities: 2-3+ edema with anasarca. No varicose veins Neurological: Patient is alert awake oriented follow commands Skin: Warm and dry. Normal turgor. No rash. Palpitation: Normal elasticity for age. multiple skin echymoses + Abdomen: Abdomen is soft. Bowel sounds +. There is no abdominal tenderness, no guarding/rigidity no organomegaly Psych: lack insight. anxious MSK: no joint tenderness or swelling. Digits and nails normal, no deformity : kidney or bladder not palpable access: none Labs/imaging reviewed. Past medical history, past surgical history, family history, social history, allergy reviewed and noted as below Family hx: no hx of CKD. Rest non-contributory work up: Hep B/C/HIV neg renal imaging: unremarkable A1c 5.5% UA no protein 1+ blood LINDSEY/ANCA neg, K/L ratio WNLTSAT 9% ferritin 221 Vit D <12.8 PTH 268 FENa 0.3% TTKG 15 Objective - Vital Signs/Intake and Output Vital Signs (last 24 hours): Temp Pulse Resp BP Pulse Ox 98.2 F 121 H 20 134/90 94 L 09/03/18 12:00 09/03/18 12:39 09/03/18 12:39 09/03/18 12:39 09/03/18 12:39 Intake and Output: 09/03/18 09/03/18 06:59 18:59 Intake Total 436 100 Output Total 1500 275 Balance -1064 -175 - Medications Medications: Current Medications Calcium/Vitamin D (Oyster Shell Calcium/Vitamin D 500 Mg-200 Iu) 1 tab PO BID [facility] Last Admin: 09/03/18 09:40 Dose: Not Given Epoetin Morales (Procrit) 10,000 unit SC TTS [facility] Last Admin: 09/03/18 09:42 Dose: 10,000 unit Meropenem 500 mg/ Sodium (Chloride) 100 mls @ 100 mls/hr IVPB Q8H [facility]; Protocol Folic Acid 1 mg/ Sodium (Chloride) 100.2 mls @ 60 mls/hr IV DAILY [facility] Nystatin (Nystop Topical Powder) 1 applic TOP BID [facility] Stop: 09/15/18 10:01 Last Admin: 09/03/18 09:44 Dose: 1 applic Pantoprazole Sodium (Protonix Inj) 40 mg IVP DAILY [facility] Last Admin: 09/03/18 09:41 Dose: 40 mg Pneumococcal Polyvalent Vaccine (Pneumovax 23 Vaccine) 0.5 ml IM .ONCE ONE Stop: 09/03/18 17:09 Vitamin A (Vitamin A & D Oint Ud Foilpak) 0.5 ea TOP Q4 [facility] Last Admin: 09/03/18 12:00 Dose: 0.5 ea - Labs Labs: 09/03/18 05:59 09/03/18 05:59 PT 25.5 SECONDS (9.7-12.2) H 08/31/18 20:08 INR 2.3 08/31/18 20:08 APTT 34 SECONDS (21-34) 08/31/18 12:32
--- NOTE | 2018-09-03 15:13 | RAD ---
Date of service: 09/02/2018 HISTORY: sob COMPARISON: Comparison chest 08/31/2018 comparison also made with CT scan abdomen pelvis 08/31/2018 which image both lung bases. FINDINGS: Demonstrated is in situ left-sided PICC line with tip in the SVC LUNGS: No active pulmonary disease.. Mild biapical pleural thickening PLEURA: No significant pleural effusion identified, no pneumothorax apparent. CARDIOVASCULAR: No significant aortic atherosclerotic calcification present. Normal cardiac size. No pulmonary vascular congestion. OSSEOUS STRUCTURES: No significant abnormalities. VISUALIZED UPPER ABDOMEN: Normal. OTHER FINDINGS: None. IMPRESSION: No active disease.
[2018-09-03] MEDS ORDERED: Pneumococcal 23-Valent Vaccine IM ONE (17:08)
[2018-09-03] MEDS: Meropenem 500 MG in Sodium Chloride 0.9% 100 ML IVPB SCH (17:36)
--- NOTE | 2018-09-03 19:53 | CP.PCM.PN ---
Subjective - Date & Time of Evaluation Date of Evaluation: 09/03/18 Time of Evaluation: 11:15 - Subjective Subjective: clinically same Objective - Vital Signs/Intake and Output Vital Signs (last 24 hours): Temp Pulse Resp BP Pulse Ox 98.1 F 128 H 17 100/60 100 09/03/18 16:00 09/03/18 19:00 09/03/18 19:00 09/03/18 18:39 09/03/18 19:00 Intake and Output: 09/03/18 09/04/18 18:59 06:59 Intake Total 200 Output Total 380 Balance -180 - Medications Medications: Current Medications Calcium/Vitamin D (Oyster Shell Calcium/Vitamin D 500 Mg-200 Iu) 1 tab PO BID [facility] Last Admin: 09/03/18 17:37 Dose: Not Given Epoetin Morales (Procrit) 10,000 unit SC TTS [facility] Last Admin: 09/03/18 09:42 Dose: 10,000 unit Meropenem 500 mg/ Sodium (Chloride) 100 mls @ 100 mls/hr IVPB Q12H [facility]; Pr otocol Last Admin: 09/03/18 17:36 Dose: 100 mls/hr Folic Acid 1 mg/ Sodium (Chloride) 100.2 mls @ 60 mls/hr IV DAILY [facility] Nystatin (Nystop Topical Powder) 1 applic TOP BID [facility] Stop: 09/15/18 10:01 Last Admin: 09/03/18 17:37 Dose: 1 applic Pantoprazole Sodium (Protonix Inj) 40 mg IVP DAILY [facility] Last Admin: 09/03/18 09:41 Dose: 40 mg Vitamin A (Vitamin A & D Oint Ud Foilpak) 0.5 ea TOP Q4 [facility] Last Admin: 09/03/18 16:00 Dose: 0.5 ea - Labs Labs: 09/03/18 05:59 09/03/18 05:59 PT 25.5 SECONDS (9.7-12.2) H 08/31/18 20:08 INR 2.3 08/31/18 20:08 APTT 34 SECONDS (21-34) 08/31/18 12:32 - Constitutional Appears: Well - Head Exam Head Exam: ATRAUMATIC, NORMAL INSPECTION, NORMOCEPHALIC - Eye Exam Eye Exam: EOMI, Normal appearance, PERRL Pupil Exam: NORMAL ACCOMODATION, PERRL - ENT Exam ENT Exam: Mucous Membranes Moist, Normal Exam - Neck Exam Neck Exam: Full ROM, Normal Inspection. absent: Lymphadenopathy - Respiratory Exam Respiratory Exam: Decreased Breath Sounds - Cardiovascular Exam Cardiovascular Exam: REGULAR RHYTHM, +S1, +S2 - GI/Abdominal Exam GI & Abdominal Exam: Soft, Diminished Bowel Sounds - Rectal Exam Rectal Exam: Deferred
[2018-09-04] MEDS: Vitamins A & D Oint UD Foilpak TOP SCH ×6 (00:30→20:08)
[2018-09-04] MEDS: Meropenem 500 MG in Sodium Chloride 0.9% 100 ML IVPB SCH ×2 (05:36→17:06)
[2018-09-04 06:12] LABS: BASO # 0.1 K/uL (0.0-0.2); BASO % 0.7 % (0.0-2.0); EOS % 0.1 % (0.0-4.0); HEMOGLOBIN 8.6 g/dL (11.0-16.0); LYMPH # 3.4 K/uL (1.0-4.3); LYMPH % 20.2 % (20.0-40.0); MEAN CELL VOLUME 89.7 fL (81.0-99.0); MEAN CORPUSCULAR HEMOGLOBIN 30.4 pg (27.0-31.0); MEAN CORPUSCULAR HGB CONC 33.9 g/dL (33.0-37.0); MEAN PLATELET VOLUME 9.1 fL (7.2-11.7); MONO # 0.6 K/uL (0.0-0.8); MONO % 3.7 % (0.0-10.0); NEUT # 12.8 K/uL (1.8-7.0); NEUT % 75.3 % (50.0-75.0); NRBC % 0.7 % (0.0-2.0); RBC 2.82 Mil/uL (3.80-5.20); RED CELL DISTRIBUTION WIDTH 16.6 % (11.5-14.5)
[2018-09-04 06:32] LABS: ALB/GLOB RATIO 1.1 (1.0-2.1); ALBUMIN 2.3 g/dL (3.5-5.0); CALCIUM 7.9 mg/dl (8.6-10.4)
--- NOTE | 2018-09-04 07:55 | CP.CCUPN ---
CCU Subjective - Physician Review Events Since Last Encounter (Free Text): 09/04/18 07:52 Patient is a 62-year-old female with a history of chronic renal insufficiency, hypertension, high cholesterol and depression. Patient was hospitalized recently with acute respiratory failure, acute renal insufficiency. She also received hemodialysis during the last time. Patient was noted to have is endocarditis, and she was on intravenous antibiotic in the house. But this time patient was admitted to the hospital and into the intensive care unit with severe hypokalemia and hypotension. Patient was treated with potassium supplementation. while she was receiving blood because of the black stools and also anemia, GI evaluation was called in, and she had a episode of respiratory distress. Patient was given Lasix. Patient has a significant problems in her breathing, she also has a rales, difficult time in bringing the mucus out. Chest congestion noted. Wheezing present. Frequently patient needs nasal suction, oral suction. Somewhat mild respiratory distress noted. Tachycardia present. Bilateral wheezing noted. Patient is otherwise awake and responding. Generalized edema present pain Labs reviewed Hemoglobin is better We'll repeat the x-ray chest again Patient is Escherichia coli infection, ESBL positive Assessment and recognition: 62-year-old female with a history of renal insufficiency, history of hypertension, high cholesterol and depression. Patient getting antibiotic for endocarditis which we are continuing the right now. Significant electrolyte imbalance, supplementation on. Will monitor the hemoglobin. Patient has a significant secretions in the mouth, also possible aspiration Currently on antibiotic. Urine culture showing evidence of Escherichia coli. ESBL Escherichia coli noted. Patient is on meropenem intravenously for years. Infection. Continue the current treatment. BiPAP as needed. Patient may need intubation but will closely monitor CCU Objective - Vital Signs / Intake & Output Intake and Output (Last 8hrs): Intake & Output 09/03/18 09/04/18 09/04/18 22:59 06:59 14:59 Intake Total 100 Output Total 65 Balance 35 Intake: Intake, IV Amount 100 Left PICC 0 Left Proximal Port PICC 100 Right Wrist 0 Oral 0 Output: Urine 55 Urethral ([place]) 55 Stool 10 Emesis 0 - Physical Exam Head: Positive for: Atraumatic, Normocephalic Pupils: Positive for: PERRL Extroacular Muscles: Positive for: EOMI Conjunctiva: Positive for: Normal Mouth: Positive for: Dry (oral mucosa lesions and tenderness when asked to open mouth and stick out tongue ), Normal Tounge (tenderness). Negative for: Moist Mucous Membranes Nose (External): Positive for: Atraumatic Nose (Internal): Positive for: Normal Inspection Neck: Positive for: Normal Range of Motion Respiratory/Chest: Positive for: Clear to Auscultation. Negative for: Respiratory Distress, Accessory Muscle Use, Tachypneic Cardiovascular: Positive for: Murmurs (systolic crescendo-decrescendo murmur ), Normal S1, S2 Abdomen: Positive for: Tenderness (generalized ). Negative for: Distention, Peritoneal Signs, McBurney's Point Tender, Rovsing's Sign Present Genitourinary/Pelvic Exam: Negative for: Normal External Genitalia (sloughing of the skin located on mons pubis ) Back: Positive for: Paraspinal Tenderness Upper Extremity: Positive for: Edema (bilateral edema, bilateral bruising, bilateral erythema ), NORMAL PULSES. Negative for: Normal Inspection, Deformity Lower Extremity: Positive for: Edema (bilateral lower extremity edema with diffuse bruising in lower extremities bilaterally. Scattered pink papules in bilateral knees and shins) Neurological: Positive for: GCS=15, CN II-XII Intact, Speech Normal Skin: Positive for: Warm, Dry Psychiatric: Positive for: Alert, Oriented x 3, Normal Insight, Normal Concentration - Medications Active Medications: Active Medications Generic Name Dose Route Start Last Admin Trade Name Freq PRN Reason Stop Dose Admin Calcium/Vitamin D 1 tab 09/01/18 12:00 09/03/18 17:37 Oyster Shell Calcium/Vitamin D 500 Mg-200 Iu PO Not Given BID [facility] Epoetin Morales 10,000 unit 09/01/18 12:00 09/03/18 09:42 Procrit SC 10,000 unit TTS [facility] Administration Meropenem 500 mg/ Sodium 100 mls @ 100 mls/hr 09/03/18 17:00 09/04/18 05:36 Chloride IVPB 100 mls/hr Q12H [facility] Administration Protocol Folic Acid 1 mg/ Sodium 100.2 mls @ 60 mls/hr 09/04/18 10:00 Chloride IV DAILY [facility] Potassium Chloride 20 meq in 100 mls @ 50 mls/hr 09/04/18 07:52 Potassium Chloride 20 Meq/100 Ml IVPB 09/04/18 09:51 ONCE ONE Nystatin 1 applic 09/01/18 10:00 09/03/18 17:37 Nystop Topical Powder TOP 09/15/18 10:01 1 applic BID [facility] Administration Pantoprazole Sodium 40 mg 09/03/18 10:00 09/03/18 09:41 Protonix Inj IVP 40 mg DAILY [facility] Administration Vitamin A 0.5 ea 08/31/18 16:00 09/04/18 04:30 Vitamin A & D Oint Ud Foilpak TOP 0.5 ea Q4 [facility] Administration - Patient Studies Lab Studies: Microbiology Studies 09/03/18 00:03 - Final Blood Transfusion Bag - Preliminary NO GROWTH AFTER 24 HOURS 08/31/18 21:36 Blood Culture - Preliminary Blood-Venous NO GROWTH AFTER 3 DAYS 08/31/18 21:36 Blood Culture - Preliminary Blood-Venous NO GROWTH AFTER 3 DAYS 09/01/18 12:45 Urine Culture - Final Urine,Catheterized Escherichia Coli Lab Studies 09/04/18 09/04/18 Range/Units 06:07 06:07 WBC 17.0 H D (4.8-10.8) K/uL RBC 2.82 L (3.80-5.20) Mil/uL Hgb 8.6 L (11.0-16.0) g/dL Hct 25.3 L (34.0-47.0) % MCV 89.7 (81.0-99.0) fL MCH 30.4 (27.0-31.0) pg MCHC 33.9 (33.0-37.0) g/dL RDW 16.6 H (11.5-14.5) % Plt Count 138 (130-400) K/uL MPV 9.1 (7.2-11.7) fL Neut % (Auto) 75.3 H (50.0-75.0) % Lymph % (Auto) 20.2 (20.0-40.0) % [place] % (Auto) 3.7 (0.0-10.0) % Eos % (Auto) 0.1 (0.0-4.0) % Baso % (Auto) 0.7 (0.0-2.0) % Neut # (Auto) 12.8 H (1.8-7.0) K/uL Lymph # (Auto) 3.4 (1.0-4.3) K/uL [place] # (Auto) 0.6 (0.0-0.8) K/uL Eos # (Auto) 0.0 (0.0-0.7) K/uL Baso # (Auto) 0.1 (0.0-0.2) K/uL Sodium 140 (132-148) mmol/L Potassium 3.7 (3.6-5.2) mmol/L Chloride 110 H (98-107) mmol/L Carbon Dioxide 17 L (22-30) mmol/L Anion Gap 17 (10-20) BUN 26 H (7-17) mg/dL Creatinine 2.4 H (0.7-1.2) mg/dL Est GFR ( Amer) 25 Est GFR (Non-Af Amer) 20 Random Glucose 96 (65-105) mg/dL Calcium 7.9 L (8.6-10.4) mg/dl Phosphorus 2.8 (2.5-4.5) mg/dL Magnesium 1.8 (1.6-2.3) mg/dL Total Bilirubin 0.8 (0.2-1.3) mg/dL AST 11 L (14-36) U/L ALT 21 (9-52) U/L Alkaline Phosphatase 90 (38-126) U/L Total Protein 4.5 L (6.3-8.3) g/dL Albumin 2.3 L (3.5-5.0) g/dL Globulin 2.2 (2.2-3.9) gm/dL Albumin/Globulin Ratio 1.1 (1.0-2.1) Laboratory Results - last 24 hr 09/04/18 09/04/18 06:07 06:07 WBC 17.0 H D RBC 2.82 L Hgb 8.6 L Hct 25.3 L MCV 89.7 MCH 30.4 MCHC 33.9 RDW 16.6 H Plt Count 138 MPV 9.1 Neut % (Auto) 75.3 H Lymph % (Auto) 20.2 [place] % (Auto) 3.7 Eos % (Auto) 0.1 Baso % (Auto) 0.7 Neut # (Auto) 12.8 H Lymph # (Auto) 3.4 [place] # (Auto) 0.6 Eos # (Auto) 0.0 Baso # (Auto) 0.1 Sodium 140 Potassium 3.7 Chloride 110 H Carbon Dioxide 17 L Anion Gap 17 BUN 26 H Creatinine 2.4 H Est GFR ( Amer) 25 Est GFR (Non-Af Amer) 20 Random Glucose 96 Calcium 7.9 L Phosphorus 2.8 Magnesium 1.8 Total Bilirubin 0.8 AST 11 L ALT 21 Alkaline Phosphatase 90 Total Protein 4.5 L Albumin 2.3 L Globulin 2.2 Albumin/Globulin Ratio 1.1 Critical Care Progress Note - Nutrition Nutrition: Nutrition Category Date Time Status Dysphagia/Modified Consistency Diet [DIET] Diets 09/02/18 Breakfast Active
[2018-09-04] MEDS: Calcium-Vit D 500 mg-200 Units Tab UD PO SCH ×2 (09:48→17:06)
--- NOTE | 2018-09-04 10:42 | CP.PCM.PN ---
Subjective - Date & Time of Evaluation Date of Evaluation: 09/04/18 Time of Evaluation: 10:20 - Subjective Subjective: Patient denies having nausea, vomiting, abdominal pain. She is not aware of any rectal bleeding. Repeat HGB is 8.6 this morning. Objective - Vital Signs/Intake and Output Vital Signs (last 24 hours): Temp Pulse Resp BP Pulse Ox 99.2 F 128 H 21 133/64 100 09/04/18 08:00 09/04/18 09:00 09/04/18 09:00 09/04/18 08:38 09/04/18 09:00 Intake and Output: 09/04/18 09/04/18 06:59 18:59 Intake Total 100 100 Output Total 140 15 Balance -40 85 - Medications Medications: Current Medications Calcium/Vitamin D (Oyster Shell Calcium/Vitamin D 500 Mg-200 Iu) 1 tab PO BID [facility] Last Admin: 09/04/18 09:48 Dose: Not Given Epoetin Morales (Procrit) 10,000 unit SC TTS [facility] Last Admin: 09/03/18 09:42 Dose: 10,000 unit Meropenem 500 mg/ Sodium (Chloride) 100 mls @ 100 mls/hr IVPB Q12H [facility]; Protocol Last Admin: 09/04/18 05:36 Dose: 100 mls/hr Folic Acid 1 mg/ Sodium (Chloride) 100.2 mls @ 60 mls/hr IV DAILY [facility] Last Admin: 09/04/18 09:46 Dose: 60 mls/hr Nystatin (Nystop Topical Powder) 1 applic TOP BID [facility] Stop: 09/15/18 10:01 Last Admin: 09/04/18 09:47 Dose: 1 applic Pantoprazole Sodium (Protonix Inj) 40 mg IVP DAILY [facility] Last Admin: 09/04/18 09:46 Dose: 40 mg Sodium Bicarbonate (Sodium Bicarbonate (8.4%) 50 Meq Syringe) 50 meq IVP DAILY [facility] Stop: 09/07/18 10:01 Thiamine HCl (Vitamin B1 Inj) 100 mg IV DAILY [facility] Stop: 09/10/18 10:01 Vitamin A (Vitamin A & D Oint Ud Foilpak) 0.5 ea TOP Q4 [facility] Last Admin: 09/04/18 08:30 Dose: 0.5 ea - Labs Labs: 09/04/18 06:07 09/04/18 06:07 PT 25.5 SECONDS (9.7-12.2) H 08/31/18 20:08 INR 2.3 08/31/18 20:08 APTT 34 SECONDS (21-34) 08/31/18 12:32 - Constitutional Appears: No Acute Distress - Head Exam Head Exam: ATRAUMATIC, NORMOCEPHALIC - Eye Exam Eye Exam: EOMI, PERRL - Neck Exam Neck Exam: absent: Lymphadenopathy, Thyromegaly - Respiratory Exam Respiratory Exam: Rhonchi. absent: Rales, Wheezes - Cardiovascular Exam Cardiovascular Exam: REGULAR RHYTHM, +S1, +S2. absent: Gallop, Rubs, Murmur - GI/Abdominal Exam GI & Abdominal Exam: Soft, Normal Bowel Sounds. absent: Tenderness, Mass, Organomegaly - Rectal Exam Rectal Exam: Deferred - Extremities Exam Extremities Exam: Pedal Edema Additional comments: Edema of all four extremities Assessment and Plan (1) Rectal bleeding Assessment & Plan: Hemoglobin is stable today at 8.6.. Consider GI work-up when stable. Status: Acute
[2018-09-04] MEDS: Sodium Bicarbonate (8.4%) 50 Meq Syringe IVP SCH (10:47)
[2018-09-04] MEDS: Thiamine 100 mg/ml Inj IV SCH (11:17)
--- NOTE | 2018-09-04 12:27 | CP.PCM.PN ---
Subjective - Date & Time of Evaluation Date of Evaluation: 09/04/18 Time of Evaluation: 12:25 - Subjective Subjective: Nephrology Consultation Note Assessment: critical Acute Kidney Injury (N17.9) likely due to ATN and pre-renal state: recent work up for GN neg HAGMA with ketonemia likely due to ROBIN and ketoacidosis hypovolemic hyponatremia, Hypokalemia, hypocalcemia and hypomagnesemia likely due to GI (due to diarrhoea) and renal loss (was on lasix) with limited oral intake severe hypoalbuminemia with malnutration with anasarca Hypertensive Chronic Kidney Disease (I12.9) Chronic Kidney Disease (N18.9) Stage 3 with 55 mg albuminuria Anemia acute on chronic severe Mitral regurg with infective endocarditis, depression/Anxiety Plan No acute need for dialysis Maintain hemodynamics stable. Avoid hypotension. Patient not on ACEI/ARB due to recent ROBIN Monitor Input/Output, daily weights and renal function with basic metabolic panel started Fe, MVI, and weekly Vit D, OScal D: held as pt unable to take PO added bicarb supplements. continue with IV lasix 40 mg 1-2 times/day PRBC as needed. had transfusion 09/02/18. supplement lytes as needed IV albumin as needed for low BP. Dietary consult. added thiamine as well. Dose meds/antibiotics for reduced GFR. Avoid fleets enema. Avoid nephrotoxins/NSAIDs/ iodinated contrast (unless needed emergently) Glycemic control Further work up for as per primary team Thanks for allowing me to participate in care of your patient. Will follow patient with you. Please call if any Qs. had d/w team Dr Heriberto Hernandez Office: [phone] reason for consult; ROBIN and electrolytes abnormalities HPI: pt is a 62 F with hx of HTN, depression who was recently admitted to hospital with ROBIN required few session of HD then improved with cr 1.2, also with infective endocarditis with severe MR but pt refused surgery and decided on ly for IV antibiotics treatments came as was feeling weak, found to have severe electrolytes depletion and renal consult for ROBIN. pt feels nervous. reports decreased oral intake and c.o loose stool besides that not providing much hx nor recent Iv contrast. noted low BP ROS: she is not able to provide much of ROS. unable to swallow Physical Examination: General Appearance: comfortable, in no acute respiratory distress, ill appearing and debilitated Vitals reviewed and noted as below Head; Atraumatic, normocephalic ENT: WNL EYES: Pupils are equal, round and reactive to light accommodation. Eye muscles and extraocular movement intact. Sclera is anicteric. Neck; supple no lymphadenopathy, no thyromegaly or bruit Lungs: Normal respiratory rate/effort. Breath sounds b/l decreased at bases with gurgling sounds in throat Heart: Increased rate. s1s2 normal. No rub or gallop. SM + at apex/LSB Extremities: 2-3+ edema with anasarca. No varicose veins Neurological: Patient is alert awake oriented follow commands Skin: Warm and dry. Normal turgor. No rash. Palpitation: Normal elasticity for age. multiple skin echymoses + Abdomen: Abdomen is soft. Bowel sounds +. There is no abdominal tenderness, no guarding/rigidity no organomegaly Psych: lack insight. anxious MSK: no joint tenderness or swelling. Digits and nails normal, no deformity : kidney or bladder not palpable access: none Labs/imaging reviewed. Past medical history, past surgical history, family history, social history, allergy reviewed and noted as below Family hx: no hx of CKD. Rest non-contributory work up: Hep B/C/HIV neg renal imaging: unremarkable A1c 5.5% UA no protein 1+ blood LINDSEY/ANCA neg, K/L ratio WNLTSAT 9% ferritin 221 Vit D <12.8 PTH 268 FENa 0.3% TTKG 15 Objective - Vital Signs/Intake and Output Vital Signs (last 24 hours): Temp Pulse Resp BP Pulse Ox 99.2 F 129 H 19 121/78 100 09/04/18 08:00 09/04/18 11:00 09/04/18 11:00 09/04/18 10:38 09/04/18 11:00 Intake and Output: 09/04/18 09/04/18 06:59 18:59 Intake Total 100 200 Output Total 140 35 Balance -40 165 - Medications Medications: Current Medications Calcium/Vitamin D (Oyster Shell Calcium/Vitamin D 500 Mg-200 Iu) 1 tab PO BID [facility] Last Admin: 09/04/18 09:48 Dose: Not Given Epoetin Morales (Procrit) 10,000 unit SC TTS [facility] Last Admin: 09/03/18 09:42 Dose: 10,000 unit Meropenem 500 mg/ Sodium (Chloride) 100 mls @ 100 mls/hr IVPB Q12H [facility]; Protocol Last Admin: 09/04/18 05:36 Dose: 100 mls/hr Folic Acid 1 mg/ Sodium (Chloride) 100.2 mls @ 60 mls/hr IV DAILY [facility] Last Admin: 09/04/18 09:46 Dose: 60 mls/hr Nystatin (Nystop Topical Powder) 1 applic TOP BID [facility] Stop: 09/15/18 10:01 Last Admin: 09/04/18 09:47 Dose: 1 applic Pantoprazole Sodium (Protonix Inj) 40 mg IVP DAILY [facility] Last Admin: 09/04/18 09:46 Dose: 40 mg Sodium Bicarbonate (Sodium Bicarbonate (8.4%) 50 Meq Syringe) 50 meq IVP DAILY [facility] Stop: 09/07/18 10:01 Last Admin: 09/04/18 10:47 Dose: 50 meq Thiamine HCl (Vitamin B1 Inj) 100 mg IV DAILY [facility] Stop: 09/10/18 10:01 Last Admin: 09/04/18 11:17 Dose: 100 mg Vitamin A (Vitamin A & D Oint Ud Foilpak) 0.5 ea TOP Q4 [facility] Last Admin: 09/04/18 08:30 Dose: 0.5 ea - Labs Labs: 09/04/18 06:07 09/04/18 06:07 PT 25.5 SECONDS (9.7-12.2) H 08/31/18 20:08 INR 2.3 08/31/18 20:08 APTT 34 SECONDS (21-34) 08/31/18 12:32
--- NOTE | 2018-09-04 14:23 | CP.PCM.PN ---
Subjective - Date & Time of Evaluation Date of Evaluation: 09/04/18 Time of Evaluation: 11:45 - Subjective Subjective: clinically same Objective - Vital Signs/Intake and Output Vital Signs (last 24 hours): Temp Pulse Resp BP Pulse Ox 99.7 F H 127 H 17 123/61 98 09/04/18 12:00 09/04/18 13:00 09/04/18 13:00 09/04/18 12:39 09/04/18 13:00 Intake and Output: 09/04/18 09/04/18 06:59 18:59 Intake Total 100 200 Output Total 140 45 Balance -40 155 - Medications Medications: Current Medications Calcium/Vitamin D (Oyster Shell Calcium/Vitamin D 500 Mg-200 Iu) 1 tab PO BID [facility] Last Admin: 09/04/18 09:48 Dose: Not Given Epoetin Morales (Procrit) 10,000 unit SC TTS [facility] Last Admin: 09/03/18 09:42 Dose: 10,000 unit Meropenem 500 mg/ Sodium (Chloride) 100 mls @ 100 mls/hr IVPB Q12H [facility]; Protocol Last Admin: 09/04/18 05:36 Dose: 100 mls/hr Folic Acid 1 mg/ Sodium (Chloride) 100.2 mls @ 60 mls/hr IV DAILY [facility] Last Admin: 09/04/18 09:46 Dose: 60 mls/hr Nystatin (Nystop Topical Powder) 1 applic TOP BID [facility] Stop: 09/15/18 10:01 Last Admin: 09/04/18 09:47 Dose: 1 applic Pantoprazole Sodium (Protonix Inj) 40 mg IVP DAILY [facility] Last Admin: 09/04/18 09:46 Dose: 40 mg Sodium Bicarbonate (Sodium Bicarbonate (8.4%) 50 Meq Syringe) 50 meq IVP DAILY [facility] Stop: 09/07/18 10:01 Last Admin: 09/04/18 10:47 Dose: 50 meq Thiamine HCl (Vitamin B1 Inj) 100 mg IV DAILY [facility] Stop: 09/10/18 10:01 Last Admin: 09/04/18 11:17 Dose: 100 mg Vitamin A (Vitamin A & D Oint Ud Foilpak) 0.5 ea TOP Q4 [facility] Last Admin: 09/04/18 13:44 Dose: 0.5 ea - Labs Labs: 09/04/18 06:07 09/04/18 06:07 PT 25.5 SECONDS (9.7-12.2) H 08/31/18 20:08 INR 2.3 08/31/18 20:08 APTT 34 SECONDS (21-34) 08/31/18 12:32 - Constitutional Appears: Well - Head Exam Head Exam: ATRAUMATIC, NORMAL INSPECTION, NORMOCEPHALIC - Eye Exam Eye Exam: EOMI, Normal appearance, PERRL Pupil Exam: NORMAL ACCOMODATION, PERRL - ENT Exam ENT Exam: Mucous Membranes Moist, Normal Exam - Neck Exam Neck Exam: Full ROM, Normal Inspection. absent: Lymphadenopathy - Respiratory Exam Respiratory Exam: Decreased Breath Sounds - Cardiovascular Exam Cardiovascular Exam: REGULAR RHYTHM, +S1, +S2 - GI/Abdominal Exam GI & Abdominal Exam: Soft, Diminished Bowel Sounds - Rectal Exam Rectal Exam: Deferred
--- NOTE | 2018-09-04 15:33 | RAD ---
Date of service: 09/04/2018 HISTORY: PNA COMPARISON: Comparison chest dated 09/02/2018 FINDINGS: In situ left-sided PICC line with tip in the SVC unchanged left lung apex partially obscured by overlying mandible and facial soft tissue artifact LUNGS: Vague triangular shaped opacity seen in the left medial lung base that probably represents atelectasis as this was not seen on the prior study though developing lower lobe infiltrate could be excluded follow-up radiographs. PLEURA: No significant pleural effusion identified, no pneumothorax apparent. CARDIOVASCULAR: Minor aortic atherosclerotic calcification present. Heart appears mildly enlarged.. No pulmonary vascular congestion. OSSEOUS STRUCTURES: There appear to be at least 2 healing or healed right-sided rib fractures VISUALIZED UPPER ABDOMEN: Normal. OTHER FINDINGS: None. IMPRESSION: Left lower lobe atelectasis and or infiltrate. In situ left-sided PICC line
--- NOTE | 2018-09-04 16:01 | CP.PCM.CON ---
History of Present Illness - History of Present Illness History of Present Illness: 62 year old female with a history of HTN, HL, depression, recent discharge from [facility] after treatment for respiratory failure UTI/bacteremia, ROBIN, anemia and thrombocytopenia, readmitted with infective endocarditis, ROBIN, elec trolyte abnormalities and anemia. The patient was found to have a hgb of 5.4 and is undergoing PRBC transfusion. She does have diarrhea but is unsure if she saw blood in her stool. Past medical history: HTN, HL, depression Past surgical history: Family history: Denies hematologic and oncologic problems Social history: Former tobacco abuse, denies alcohol, and illicit drug use. Allergies: NKA Review of systems: All remaining review of systems including HEENT, cardiovascular, respiratory, gastrointestinal, genitourinary, musculoskeletal, dermatologic, neurologic, and psychiatric are negative unless mentioned in the HPI. Past Patient History - Past Medical History & Family History Past Medical History?: Yes - Past Social History Smoking Status: Never Smoked - CARDIAC Hx Hypercholesterolemia: Yes Hx Hypertension: Yes - PULMONARY Hx Pneumonia: Yes - RENAL Hx Renal Failure: Yes - HEMATOLOGICAL/ONCOLOGICAL Hx Cirrhosis: No Hx Hepatitis A: No Hx Hepatitis B: No Hx Hepatitis C: No Hx Human Immunodeficiency Virus (HIV): No - MUSCULOSKELETAL/RHEUMATOLOGICAL Hx Falls: No - GASTROINTESTINAL Hx Gastrointestinal Disorders: Yes Hx Gastritis: Yes Hx Hemorrhoids: Yes Other/Comment: colon polyps in the past?? - GENITOURINARY/GYNECOLOGICAL Hx Incontinence: Yes - PSYCHIATRIC Hx Depression: Yes Hx Substance Use: No (unknown) - SURGICAL HISTORY Hx Section: Yes - ANESTHESIA Hx Anesthesia: No Hx Anesthesia Reactions: No Hx Malignant Hyperthermia: No Meds Allergies/Adverse Reactions: Allergies Allergy/AdvReac Type Severity Reaction Status Date / Time No Known Allergies Allergy Verified 07/31/18 15:33 - Medications Medications: Current Medications Calcium/Vitamin D (Oyster Shell Calcium/Vitamin D 500 Mg-200 Iu) 1 tab PO BID [facility] Last Admin: 09/04/18 09:48 Dose: Not Given Epoetin Morales (Procrit) 10,000 unit SC TTS [facility]SE Last Admin: 09/03/18 09:42 Dose: 10,000 unit Meropenem 500 mg/ Sodium (Chloride) 100 mls @ 100 mls/hr IVPB Q12H [facility]; Protocol Last Admin: 09/04/18 05:36 Dose: 100 mls/hr Folic Acid 1 mg/ Sodium (Chloride) 100.2 mls @ 60 mls/hr IV DAILY [facility] Last Admin: 09/04/18 09:46 Dose: 60 mls/hr Nystatin (Nystop Topical Powder) 1 applic TOP BID [facility] Stop: 09/15/18 10:01 Last Admin: 09/04/18 09:47 Dose: 1 applic Pantoprazole Sodium (Protonix Inj) 40 mg IVP DAILY [facility] Last Admin: 09/04/18 09:46 Dose: 40 mg Sodium Bicarbonate (Sodium Bicarbonate (8.4%) 50 Meq Syringe) 50 meq IVP DAILY [facility] Stop: 09/07/18 10:01 Last Admin: 09/04/18 10:47 Dose: 50 meq Thiamine HCl (Vitamin B1 Inj) 100 mg IV DAILY [facility] Stop: 09/10/18 10:01 Last Admin: 09/04/18 11:17 Dose: 100 mg Vitamin A (Vitamin A & D Oint Ud Foilpak) 0.5 ea TOP Q4 [facility] Last Admin: 09/04/18 13:44 Dose: 0.5 ea Physical Exam - Head Exam Head Exam: ATRAUMATIC - Eye Exam Eye Exam: Normal appearance - ENT Exam ENT Exam: Mucous Membranes Dry - Respiratory Exam Respiratory Exam: NORMAL BREATHING PATTERN - Cardiovascular Exam Cardiovascular Exam: +S1, +S2 - GI/Abdominal Exam GI & Abdominal Exam: Normal Bowel Sounds Results - Vital Signs Recent Vital Signs: Last Vital Signs Temp 99.7 F H 09/04/18 12:00 Pulse 127 H 09/04/18 13:00 Resp 17 09/04/18 13:00 BP 123/61 09/04/18 12:39 Pulse Ox 98 09/04/18 13:00 - Labs Result Diagrams: 09/04/18 06:07 09/04/18 06:07 Labs: Laboratory Results - last 24 hr 09/03/18 09/04/18 09/04/18 00:03 06:07 06:07 WBC 17.0 H D RBC 2.82 L Hgb 8.6 L Hct 25.3 L MCV 89.7 MCH 30.4 MCHC 33.9 RDW 16.6 H Plt Count 138 MPV 9.1 Neut % (Auto) 75.3 H Lymph % (Auto) 20.2 [place] % (Auto) 3.7 Eos % (Auto) 0.1 Baso % (Auto) 0.7 Neut # (Auto) 12.8 H Lymph # (Auto) 3.4 [place] # (Auto) 0.6 Eos # (Auto) 0.0 Baso # (Auto) 0.1 Sodium 140 Potassium 3.7 Chloride 110 H Carbon Dioxide 17 L Anion Gap 17 BUN 26 H Creatinine 2.4 H Est GFR ( Amer) 25 Est GFR (Non-Af Amer) 20 Random Glucose 96 Calcium 7.9 L Phosphorus 2.8 Magnesium 1.8 Total Bilirubin 0.8 AST 11 L ALT 21 Alkaline Phosphatase 90 Total Protein 4.5 L Albumin 2.3 L Globulin 2.2 Albumin/Globulin Ratio 1.1 Pathologist Comment BBK Assessment & Plan (1) Anemia Assessment and Plan: prior work up consistent with anemia of chronic disease ? anemia of CKD transfusion support PRN repeat retic count, b12, folate, FOBT Thank you for this interesting consult. Status: Acute
--- NOTE | 2018-09-04 16:07 | CP.PCM.PN ---
Subjective - Date & Time of Evaluation Date of Evaluation: 09/03/18 Time of Evaluation: 13:00 - Subjective Subjective: No complaints, denies bleeding. Objective - Vital Signs/Intake and Output Vital Signs (last 24 hours): Temp Pulse Resp BP Pulse Ox 99.7 F H 127 H 17 123/61 98 09/04/18 12:00 09/04/18 13:00 09/04/18 13:00 09/04/18 12:39 09/04/18 13:00 Intake and Output: 09/04/18 09/04/18 06:59 18:59 Intake Total 100 200 Output Total 140 45 Balance -40 155 - Medications Medications: Current Medications Calcium/Vitamin D (Oyster Shell Calcium/Vitamin D 500 Mg-200 Iu) 1 tab PO BID [facility] Last Admin: 09/04/18 09:48 Dose: Not Given Epoetin Morales (Procrit) 10,000 unit SC TTS [facility] Last Admin: 09/03/18 09:42 Dose: 10,000 unit Meropenem 500 mg/ Sodium (Chloride) 100 mls @ 100 mls/hr IVPB Q12H [facility]; Protocol Last Admin: 09/04/18 05:36 Dose: 100 mls/hr Folic Acid 1 mg/ Sodium (Chloride) 100.2 mls @ 60 mls/hr IV DAILY [facility] Last Admin: 09/04/18 09:46 Dose: 60 mls/hr Nystatin (Nystop Topical Powder) 1 applic TOP BID [facility]SE Stop: 09/15/18 10:01 Last Admin: 09/04/18 09:47 Dose: 1 applic Pantoprazole Sodium (Protonix Inj) 40 mg IVP DAILY [facility] Last Admin: 09/04/18 09:46 Dose: 40 mg Sodium Bicarbonate (Sodium Bicarbonate (8.4%) 50 Meq Syringe) 50 meq IVP DAILY JOSE Stop: 09/07/18 10:01 Last Admin: 09/04/18 10:47 Dose: 50 meq Thiamine HCl (Vitamin B1 Inj) 100 mg IV DAILY [facility]SE Stop: 09/10/18 10:01 Last Admin: 09/04/18 11:17 Dose: 100 mg Vitamin A (Vitamin A & D Oint Ud Foilpak) 0.5 ea TOP Q4 [facility] Last Admin: 09/04/18 13:44 Dose: 0.5 ea - Labs Labs: 09/04/18 06:07 09/04/18 06:07 PT 25.5 SECONDS (9.7-12.2) H 08/31/18 20:08 INR 2.3 08/31/18 20:08 APTT 34 SECONDS (21-34) 08/31/18 12:32 - Head Exam Head Exam: ATRAUMATIC - Eye Exam Eye Exam: Normal appearance - ENT Exam ENT Exam: Mucous Membranes Dry - Respiratory Exam Respiratory Exam: NORMAL BREATHING PATTERN - Cardiovascular Exam Cardiovascular Exam: +S1, +S2 - GI/Abdominal Exam GI & Abdominal Exam: Normal Bowel Sounds Assessment and Plan (1) Anemia Assessment & Plan: prior work up consistent with anemia of chronic disease anemia of CKD - KESHAWN per renal transfusion support PRN f/u iron/b12/folate stores Status: Acute
--- NOTE | 2018-09-04 16:08 | CP.PCM.PN ---
Subjective - Date & Time of Evaluation Date of Evaluation: 09/04/18 Time of Evaluation: 16:00 - Subjective Subjective: No complaints, no bleeding H/H stable Objective - Vital Signs/Intake and Output Vital Signs (last 24 hours): Temp Pulse Resp BP Pulse Ox 99.7 F H 126 H 17 118/77 100 09/04/18 12:00 09/04/18 16:00 09/04/18 16:00 09/04/18 15:39 09/04/18 16:00 Intake and Output: 09/04/18 09/04/18 06:59 18:59 Intake Total 100 200 Output Total 140 80 Balance -40 120 - Medications Medications: Current Medications Calcium/Vitamin D (Oyster Shell Calcium/Vitamin D 500 Mg-200 Iu) 1 tab PO BID [facility] Last Admin: 09/04/18 09:48 Dose: Not Given Epoetin Morales (Procrit) 10,000 unit SC TTS [facility] Last Admin: 09/03/18 09:42 Dose: 10,000 unit Meropenem 500 mg/ Sodium (Chloride) 100 mls @ 100 mls/hr IVPB Q12H [facility]; Protocol Last Admin: 09/04/18 05:36 Dose: 100 mls/hr Folic Acid 1 mg/ Sodium (Chloride) 100.2 mls @ 60 mls/hr IV DAILY [facility] Last Admin: 09/04/18 09:46 Dose: 60 mls/hr Nystatin (Nystop Topical Powder) 1 applic TOP BID JOSE Stop: 09/15/18 10:01 Last Admin: 09/04/18 09:47 Dose: 1 applic Pantoprazole Sodium (Protonix Inj) 40 mg IVP DAILY [facility] Last Admin: 09/04/18 09:46 Dose: 40 mg Sodium Bicarbonate (Sodium Bicarbonate (8.4%) 50 Meq Syringe) 50 meq IVP DAILY JOSE Stop: 09/07/18 10:01 Last Admin: 09/04/18 10:47 Dose: 50 meq Thiamine HCl (Vitamin B1 Inj) 100 mg IV DAILY JOSE Stop: 09/10/18 10:01 Last Admin: 09/04/18 11:17 Dose: 100 mg Vitamin A (Vitamin A & D Oint Ud Foilpak) 0.5 ea TOP Q4 [facility] Last Admin: 09/04/18 13:44 Dose: 0.5 ea - Labs Labs: 09/04/18 06:07 09/04/18 06:07 PT 25.5 SECONDS (9.7-12.2) H 08/31/18 20:08 INR 2.3 08/31/18 20:08 APTT 34 SECONDS (21-34) 08/31/18 12:32 - Head Exam Head Exam: ATRAUMATIC - Eye Exam Eye Exam: Normal appearance - ENT Exam ENT Exam: Mucous Membranes Dry - Respiratory Exam Respiratory Exam: NORMAL BREATHING PATTERN - Cardiovascular Exam Cardiovascular Exam: +S1, +S2 Assessment and Plan (1) Anemia Assessment & Plan: prior work up consistent with anemia of chronic disease anemia of CKD - KESHAWN per renal transfusion support PRN f/u iron/b12/folate stores Status: Acute
--- NOTE | 2018-09-04 18:23 | CP.PCM.PN ---
Subjective - Date & Time of Evaluation Date of Evaluation: 09/04/18 Time of Evaluation: 08:00 - Subjective Subjective: ESBL E Coli in urine merrem added Objective - Vital Signs/Intake and Output Vital Signs (last 24 hours): Temp Pulse Resp BP Pulse Ox 98 F 133 H 20 131/90 100 09/04/18 16:00 09/04/18 18:00 09/04/18 18:00 09/04/18 17:39 09/04/18 18:00 Intake and Output: 09/04/18 09/04/18 06:59 18:59 Intake Total 100 350 Output Total 140 100 Balance -40 250 - Medications Medications: Current Medications Calcium/Vitamin D (Oyster Shell Calcium/Vitamin D 500 Mg-200 Iu) 1 tab PO BID [facility] Last Admin: 09/04/18 17:06 Dose: 1 tab Epoetin Morales (Procrit) 10,000 unit SC TTS [facility] Last Admin: 09/03/18 09:42 Dose: 10,000 unit Meropenem 500 mg/ Sodium (Chloride) 100 mls @ 100 mls/hr IVPB Q12H [facility]; Protocol Last Admin: 09/04/18 17:06 Dose: 100 mls/hr Folic Acid 1 mg/ Sodium (Chloride) 100.2 mls @ 60 mls/hr IV DAILY [facility] Last Admin: 09/04/18 09:46 Dose: 60 mls/hr Nystatin (Nystop Topical Powder) 1 applic TOP BID [facility] Stop: 09/15/18 10:01 Last Admin: 09/04/18 17:06 Dose: 1 applic Pantoprazole Sodium (Protonix Inj) 40 mg IVP DAILY [facility] Last Admin: 09/04/18 09:46 Dose: 40 mg Sodium Bicarbonate (Sodium Bicarbonate (8.4%) 50 Meq Syringe) 50 meq IVP DAILY JOSE Stop: 09/07/18 10:01 Last Admin: 09/04/18 10:47 Dose: 50 meq Thiamine HCl (Vitamin B1 Inj) 100 mg IV DAILY [facility]SE Stop: 09/10/18 10:01 Last Admin: 09/04/18 11:17 Dose: 100 mg Vitamin A (Vitamin A & D Oint Ud Foilpak) 0.5 ea TOP Q4 [facility] Last Admin: 09/04/18 16:20 Dose: 0.5 ea - Labs Labs: 09/04/18 06:07 09/04/18 06:07 PT 25.5 SECONDS (9.7-12.2) H 08/31/18 20:08 INR 2.3 08/31/18 20:08 APTT 34 SECONDS (21-34) 08/31/18 12:32 - Constitutional Appears: Non-toxic, Chronically Ill - Head Exam Head Exam: NORMOCEPHALIC - Eye Exam Eye Exam: absent: Scleral icterus - ENT Exam ENT Exam: Mucous Membranes Dry - Neck Exam Neck Exam: absent: Lymphadenopathy - Respiratory Exam Respiratory Exam: Decreased Breath Sounds - Cardiovascular Exam Cardiovascular Exam: REGULAR RHYTHM - GI/Abdominal Exam GI & Abdominal Exam: Distended Assessment and Plan (1) Leukocytosis Status: Acute (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
[2018-09-04] MEDS: Metoprolol 1 mg/ml Inj IVP SCH (18:58)
[2018-09-05] MEDS: Vitamins A & D Oint UD Foilpak TOP SCH ×6 (00:53→20:31)
[2018-09-05] MEDS: Meropenem 500 MG in Sodium Chloride 0.9% 100 ML IVPB SCH ×2 (04:25→17:44)
--- NOTE | 2018-09-05 08:07 | CP.PCM.PN ---
Subjective - Date & Time of Evaluation Date of Evaluation: 09/05/18 Time of Evaluation: 08:05 - Subjective Subjective: No bleeding or melena noted Objective - Vital Signs/Intake and Output Vital Signs (last 24 hours): Temp Pulse Resp BP Pulse Ox 99 F 122 H 22 116/75 100 09/05/18 04:00 09/05/18 07:01 09/05/18 07:01 09/05/18 07:01 09/05/18 07:01 Intake and Output: 09/05/18 09/05/18 06:59 18:59 Intake Total 150 Output Total 112 Balance 38 - Medications Medications: Current Medications Calcium/Vitamin D (Oyster Shell Calcium/Vitamin D 500 Mg-200 Iu) 1 tab PO BID [facility] Last Admin: 09/04/18 17:06 Dose: 1 tab Epoetin Omrales (Procrit) 10,000 unit SC TTS [facility] Last Admin: 09/03/18 09:42 Dose: 10,000 unit Meropenem 500 mg/ Sodium (Chloride) 100 mls @ 100 mls/hr IVPB Q12H [facility]; Protocol Last Admin: 09/05/18 04:25 Dose: 100 mls/hr Folic Acid 1 mg/ Sodium (Chloride) 100.2 mls @ 60 mls/hr IV DAILY [facility] Last Admin: 09/04/18 09:46 Dose: 60 mls/hr Metoprolol Tartrate (Lopressor) 2.5 mg IVP BID [facility] Last Admin: 09/04/18 18:58 Dose: 2.5 mg Nystatin (Nystop Topical Powder) 1 applic TOP BID [facility] Stop: 09/15/18 10:01 Last Admin: 09/04/18 17:06 Dose: 1 applic Pantoprazole Sodium (Protonix Inj) 40 mg IVP DAILY [facility] Last Admin: 09/04/18 09:46 Dose: 40 mg Sodium Bicarbonate (Sodium Bicarbonate (8.4%) 50 Meq Syringe) 50 meq IVP DAILY [facility] Stop: 09/07/18 10:01 Last Admin: 09/04/18 10:47 Dose: 50 meq Thiamine HCl (Vitamin B1 Inj) 100 mg IV DAILY [facility] Stop: 09/10/18 10:01 Last Admin: 09/04/18 11:17 Dose: 100 mg Vitamin A (Vitamin A & D Oint Ud Foilpak) 0.5 ea TOP Q4 [facility] Last Admin: 09/05/18 04:27 Dose: 0.5 ea - Labs Labs: 09/04/18 06:07 09/04/18 06:07 PT 25.5 SECONDS (9.7-12.2) H 08/31/18 20:08 INR 2.3 08/31/18 20:08 APTT 34 SECONDS (21-34) 08/31/18 12:32 - Constitutional Appears: No Acute Distress - Head Exam Head Exam: ATRAUMATIC - Eye Exam Eye Exam: EOMI, PERRL - Respiratory Exam Respiratory Exam: Decreased Breath Sounds - Cardiovascular Exam Cardiovascular Exam: REGULAR RHYTHM - GI/Abdominal Exam GI & Abdominal Exam: Soft, Normal Bowel Sounds. absent: Tenderness, Mass, Rebound - Extremities Exam Extremities Exam: Pedal Edema Assessment and Plan (1) Anemia in chronic kidney disease Status: Acute (2) Rectal bleeding Assessment & Plan: Observe for evidence of blood loss. Hgb=8.6 yesterday. No current plans for endoscopic workup. Colonoscopy to evaluate for rectal bleeding when stable as out patient or in event of overt bleeding emergently. Status: Acute
[2018-09-05 10:15] LABS: ALB/GLOB RATIO 0.9 (1.0-2.1); ALBUMIN 2.5 g/dL (3.5-5.0)
[2018-09-05] MEDS: Sodium Bicarbonate (8.4%) 50 Meq Syringe IVP SCH ×2 (10:56→22:19)
[2018-09-05] MEDS: Metoprolol 1 mg/ml Inj IVP SCH ×2 (10:56→17:43)
[2018-09-05] MEDS: Thiamine 100 mg/ml Inj IV SCH (10:57)
--- NOTE | 2018-09-05 11:07 | CP.PCM.PN ---
Subjective - Date & Time of Evaluation Date of Evaluation: 09/05/18 Time of Evaluation: 07:00 - Subjective Subjective: afeb repeat blood c/s neg IV Merrem ordered Objective - Vital Signs/Intake and Output Vital Signs (last 24 hours): Temp Pulse Resp BP Pulse Ox 99 F 122 H 22 116/75 100 09/05/18 04:00 09/05/18 07:01 09/05/18 07:01 09/05/18 07:01 09/05/18 07:01 Intake and Output: 09/05/18 09/05/18 06:59 18:59 Intake Total 150 Output Total 112 Balance 38 - Medications Medications: Current Medications Calcium/Vitamin D (Oyster Shell Calcium/Vitamin D 500 Mg-200 Iu) 1 tab PO BID [facility] Last Admin: 09/04/18 17:06 Dose: 1 tab Epoetin Morales (Procrit) 10,000 unit SC TTS [facility] Last Admin: 09/03/18 09:42 Dose: 10,000 unit Meropenem 500 mg/ Sodium (Chloride) 100 mls @ 100 mls/hr IVPB Q12H [facility]; Protocol Last Admin: 09/05/18 04:25 Dose: 100 mls/hr Folic Acid 1 mg/ Sodium (Chloride) 100.2 mls @ 60 mls/hr IV DAILY [facility] Last Admin: 09/04/18 09:46 Dose: 60 mls/hr Metoprolol Tartrate (Lopressor) 2.5 mg IVP BID [facility] Last Admin: 09/05/18 10:56 Dose: 2.5 mg Nystatin (Nystop Topical Powder) 1 applic TOP BID [facility] Stop: 09/15/18 10:01 Last Admin: 09/04/18 17:06 Dose: 1 applic Pantoprazole Sodium (Protonix Inj) 40 mg IVP DAILY [facility] Last Admin: 09/05/18 10:56 Dose: 40 mg Sodium Bicarbonate (Sodium Bicarbonate (8.4%) 50 Meq Syringe) 50 meq IVP DAILY [facility] Stop: 09/07/18 10:01 Last Admin: 09/05/18 10:56 Dose: 50 meq Thiamine HCl (Vitamin B1 Inj) 100 mg IV DAILY [facility] Stop: 09/10/18 10:01 Last Admin: 09/05/18 10:57 Dose: 100 mg Vitamin A (Vitamin A & D Oint Ud Foilpak) 0.5 ea TOP Q4 [facility] Last Admin: 09/05/18 08:00 Dose: 0.5 ea - Labs Labs: 09/04/18 06:07 09/05/18 09:49 PT 25.5 SECONDS (9.7-12.2) H 08/31/18 20:08 INR 2.3 08/31/18 20:08 APTT 34 SECONDS (21-34) 08/31/18 12:32 - Constitutional Appears: Non-toxic, Chronically Ill - Head Exam Head Exam: NORMOCEPHALIC - Eye Exam Eye Exam: absent: Scleral icterus - ENT Exam ENT Exam: Mucous Membranes Dry - Neck Exam Neck Exam: absent: Lymphadenopathy - Respiratory Exam Respiratory Exam: Decreased Breath Sounds - Cardiovascular Exam Cardiovascular Exam: REGULAR RHYTHM - GI/Abdominal Exam GI & Abdominal Exam: Distended, Soft Assessment and Plan (1) Leukocytosis Status: Acute (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
[2018-09-05] MEDS: Calcium-Vit D 500 mg-200 Units Tab UD PO SCH ×2 (11:12→17:44)
[2018-09-05 11:20] LABS: FOLATE 9.7 ng/mL
--- NOTE | 2018-09-05 11:38 | CP.CCUPN ---
CCU Subjective - Physician Review Events Since Last Encounter (Free Text): 09/05/18 11:38 No acute events overnight Subjective (Free Text): 09/05/18 11:36 PGY1 Critical Care Progress Note for Dr. Feng Patient was seen and evaluated at bedside this morning. Patient is requesting to drink liquids. Otherwise patient has no new complaints. Patient denies chest pain, shortness of breath, headache, abdominal pain, nausea, vomiting, hematochezia, dizziness, pruritus, fever, and/or chills. Critical Care Time Spent (in minutes): 35 CCU Objective - Vital Signs / Intake & Output Intake and Output (Last 8hrs): Intake & Output 09/04/18 09/05/18 09/05/18 22:59 06:59 14:59 Intake Total 150 150 Output Total 90 62 Balance 60 88 Weight 74 lb 8 oz Intake: Intake, IV Amount 100 100 Left Proximal Port PICC 100 100 Oral 50 50 Output: Urine 90 62 Urethral ([place]) 90 62 Stool 0 Other: # Bowel Movements 0 - Physical Exam Head: Positive for: Atraumatic, Normocephalic Pupils: Positive for: PERRL Extroacular Muscles: Positive for: EOMI Conjunctiva: Positive for: Normal Mouth: Positive for: Dry (oral mucosa lesions and tenderness when asked to open mouth and stick out tongue ), Normal Tounge (tenderness). Negative for: Moist Mucous Membranes Nose (External): Positive for: Atraumatic Nose (Internal): Positive for: Normal Inspection Neck: Positive for: Normal Range of Motion Respiratory/Chest: Positive for: Clear to Auscultation. Negative for: Respira tory Distress, Accessory Muscle Use, Tachypneic Cardiovascular: Positive for: Murmurs (systolic crescendo-decrescendo murmur ), Normal S1, S2 Abdomen: Positive for: Tenderness (generalized ). Negative for: Distention, Peritoneal Signs, McBurney's Point Tender, Rovsing's Sign Present Genitourinary/Pelvic Exam: Negative for: Normal External Genitalia (sloughing of the skin located on mons pubis ) Back: Positive for: Paraspinal Tenderness Upper Extremity: Positive for: Edema (bilateral edema, bilateral bruising, bilateral erythema ), NORMAL PULSES. Negative for: Normal Inspection, Deformity Lower Extremity: Positive for: Edema (bilateral lower extremity edema with diffuse bruising in lower extremities bilaterally. Scattered pink papules in bilateral knees and shins) Neurological: Positive for: GCS=15, CN II-XII Intact, Speech Normal Skin: Positive for: Warm, Dry Psychiatric: Positive for: Alert, Oriented x 3, Normal Insight, Normal Concentration - Medications Active Medications: Active Medications Generic Name Dose Route Start Last Admin Trade Name Freq PRN Reason Stop Dose Admin Calcium/Vitamin D 1 tab 09/01/18 12:00 09/05/18 11:12 Oyster Shell Calcium/Vitamin D 500 Mg-200 Iu PO 1 tab BID JOSE Administration Epoetin Morales 10,000 unit 09/01/18 12:00 09/03/18 09:42 Procrit SC 10,000 unit TTS JOSE Administration Meropenem 500 mg/ Sodium 100 mls @ 100 mls/hr 09/03/18 17:00 09/05/18 04:25 Chloride IVPB 100 mls/hr Q12H JOSE Administration Protocol Folic Acid 1 mg/ Sodium 100.2 mls @ 60 mls/hr 09/04/18 10:00 09/05/18 11:16 Chloride IV 60 mls/hr DAILY JOSE Administration Metoprolol Tartrate 2.5 mg 09/04/18 19:00 09/05/18 10:56 Lopressor IVP 2.5 mg BID JOSE Administration Nystatin 1 applic 09/01/18 10:00 09/05/18 10:59 Nystop Topical Powder TOP 09/15/18 10:01 1 applic BID JOSE Administration Pantoprazole Sodium 40 mg 09/03/18 10:00 09/05/18 10:56 Protonix Inj IVP 40 mg DAILY JOSE Administration Sodium Bicarbonate 50 meq 09/04/18 10:45 09/05/18 10:56 Sodium Bicarbonate (8.4%) 50 Meq Syringe IVP 09/07/18 10:01 50 meq DAILY JOSE Administration Thiamine HCl 100 mg 09/04/18 10:45 09/05/18 10:57 Vitamin B1 Inj IV 09/10/18 10:01 100 mg DAILY JOSE Administration Vitamin A 0.5 ea 08/31/18 16:00 09/05/18 08:00 Vitamin A & D Oint Ud Foilpak TOP 0.5 ea Q4 JOSE Administration - Patient Studies Lab Studies: Microbiology Studies 09/03/18 00:03 - Final Blood Transfusion Bag - Preliminary NO GROWTH AFTER 48 HOURS 08/31/18 21:36 Blood Culture - Preliminary Blood-Venous NO GROWTH AFTER 4 DAYS 08/31/18 21:36 Blood Culture - Preliminary Blood-Venous NO GROWTH AFTER 4 DAYS Lab Studies 09/05/18 09/05/18 09/04/18 Range/Units 09:49 05:48 23:36 Sodium 142 (132-148) mmol/L Potassium 4.5 (3.6-5.2) mmol/L Chloride 112 H (98-107) mmol/L Carbon Dioxide 16 L (22-30) mmol/L Anion Gap 18 (10-20) BUN 31 H (7-17) mg/dL Creatinine 2.4 H (0.7-1.2) mg/dL Est GFR ( Amer) 25 Est GFR (Non-Af Amer) 20 POC Glucose (mg/dL) 117 H 118 H (65-110) mg/dL Random Glucose 112 H (65-105) mg/dL Calcium 8.0 L (8.6-10.4) mg/dl Phosphorus 2.7 (2.5-4.5) mg/dL Magnesium 1.9 (1.6-2.3) mg/dL Ferritin 760.0 ng/mL Total Bilirubin 0.9 (0.2-1.3) mg/dL AST 28 (14-36) U/L ALT 11 (9-52) U/L Alkaline Phosphatase 146 H D (38-126) U/L Total Protein 5.2 L (6.3-8.3) g/dL Albumin 2.5 L (3.5-5.0) g/dL Globulin 2.7 (2.2-3.9) gm/dL Albumin/Globulin Ratio 0.9 L (1.0-2.1) Vitamin B12 849 (239-931) pg/mL Folate 9.7 ng/mL Stool Occult Blood (NEGATIVE) 09/04/18 09/04/18 09/04/18 Range/Units 18:01 17:48 12:31 Sodium (132-148) mmol/L Potassium (3.6-5.2) mmol/L Chloride (98-107) mmol/L Carbon Dioxide (22-30) mmol/L Anion Gap (10-20) BUN (7-17) mg/dL Creatinine (0.7-1.2) mg/dL Est GFR ( Amer) Est GFR (Non-Af Amer) POC Glucose (mg/dL) 103 94 (65-110) mg/dL Random Glucose (65-105) mg/dL Calcium (8.6-10.4) mg/dl Phosphorus (2.5-4.5) mg/dL Magnesium (1.6-2.3) mg/dL Ferritin ng/mL Total Bilirubin (0.2-1.3) mg/dL AST (14-36) U/L ALT (9-52) U/L Alkaline Phosphatase (38-126) U/L Total Protein (6.3-8.3) g/dL Albumin (3.5-5.0) g/dL Globulin (2.2-3.9) gm/dL Albumin/Globulin Ratio (1.0-2.1) Vitamin B12 (239-931) pg/mL Folate ng/mL Stool Occult Blood Negative (NEGATIVE) Laboratory Results - last 24 hr 09/04/18 09/04/18 09/04/18 12:31 17:48 18:01 Sodium Potassium Chloride Carbon Dioxide Anion Gap BUN Creatinine Est GFR ( Amer) Est GFR (Non-Af Amer) POC Glucose (mg/dL) 94 103 Random Glucose Calcium Phosphorus Magnesium Ferritin Total Bilirubin AST ALT Alkaline Phosphatase Total Protein Albumin Globulin Albumin/Globulin Ratio Vitamin B12 Folate Stool Occult Blood Negative 09/04/18 09/05/18 09/05/18 23:36 05:48 09:49 Sodium 142 Potassium 4.5 Chloride 112 H Carbon Dioxide 16 L Anion Gap 18 BUN 31 H Creatinine 2.4 H Est GFR ( Amer) 25 Est GFR (Non-Af Amer) 20 POC Glucose (mg/dL) 118 H 117 H Random Glucose 112 H Calcium 8.0 L Phosphorus 2.7 Magnesium 1.9 Ferritin 760.0 Total Bilirubin 0.9 AST 28 ALT 11 Alkaline Phosphatase 146 H D Total Protein 5.2 L Albumin 2.5 L Globulin 2.7 Albumin/Globulin Ratio 0.9 L Vitamin B12 849 Folate 9.7 Stool Occult Blood Fingerstick Blood Sugar Results: 128 Review of Systems - Review of Systems All systems: reviewed and no additional remarkable complaints except Critical Care Progress Note - Nutrition Nutrition: Nutrition Category Date Time Status Dysphagia/Modified Consistency Diet [DIET] Diets 09/05/18 Breakfast Active Assessment/Plan - Assessment and Plan (Free Text) Assessment: This is a 62-year-old female with PMH of renal insufficiency, hypertnesion, hyperlipidemia, and depression who was recently seen at [facility] for possible acute endocarditis. Today she presents for dizziness and hypotension. Patient was found to have hypokalemia in the ED (K+=1.1). Potassium administered to patient. Hypokalemia improved. Patient is being monitored and treated in ICU. Neuro: - Agitation and confusion - Start Haloperidol BID (home-medication) - Monitor neuro checks CV: - History of possible acute endocarditis with Staph infection - EKG abnormal with sinus tachycardia and right atrial enlargement Pulm: - No acute issues - Monitor - Maintain O2 sat > 92% - O2 PRN 2L NC GI: - Malnutrition & anasarca - Continue Vitamin C, Zinc, Calcium, Vitamin D - CT ABD/ Pelvis: Gallbladder distention. No calcified gallstones. Coarse hepatic calcifications. - GI consulted - Dr. John Correa; recommendations appreciated - Stool occult - Negative Renal: - Renal insufficiency with anasarca - Dr. Hernandez consulted; recommendations appreciated - Severe hypokalemia, improved - Replete as necessary - Monitor CMP with Mg, Phos ID: - History of endocarditis - Dr. Grant consulted; recommendations appreciated - Patient was getting IV antibiotics via PICC line as outpatient - Worsening leukocytosis - Continue nystatin topical BID - Continue Vitamin C, Zinc, Calcium, Vitamin D Heme: - Normocytic anemia; chronic - Start procrit * Type & Screen and transfusion will be performed as necessary (consent obtained from Next Of Kin, as patient is confused) * GI consulted; Dr. John Correa; recommendations appreciated * Monitor H/H MSK: - CT ABD/Pelvis: Multple compression fracture deformities (most severe L1); please see full report Patient seen and case discussed in detail with Dr. Ping Shabazz PGY1
--- NOTE | 2018-09-05 12:53 | CP.PCM.PN ---
Subjective - Date & Time of Evaluation Date of Evaluation: 09/05/18 Time of Evaluation: 12:51 - Subjective Subjective: Nephrology Consultation Note Assessment: critical Acute Kidney Injury (N17.9) likely due to ATN and pre-renal state: recent work up for GN neg HAGMA with ketonemia likely due to ROBIN and ketoacidosis hypovolemic hyponatremia, Hypokalemia, hypocalcemia and hypomagnesemia likely due to GI (due to diarrhoea) and renal loss (was on lasix) with limited oral intake severe hypoalbuminemia with malnutration with anasarca Hypertensive Chronic Kidney Disease (I12.9) Chronic Kidney Disease (N18.9) Stage 3 with 55 mg albuminuria Anemia acute on chronic severe Mitral regurg with infective endocarditis, depression/Anxiety Plan No acute need for dialysis Maintain hemodynamics stable. Avoid hypotension. Patient not on ACEI/ARB due to recent ROBIN Monitor Input/Output, daily weights and renal function with basic metabolic panel started Fe, MVI, and weekly Vit D, OScal D: held as pt unable to take PO increased bicarb supplements 50 mg IVP bid. consider IV lasix 40 mg 1-2 times/day PRBC as needed. had transfusion 09/02/18. supplement lytes as needed IV albumin as needed for low BP. Dietary consult. added thiamine as well. Dose meds/antibiotics for reduced GFR. Avoid fleets enema. Avoid nephrotoxins/NSAIDs/ iodinated contrast (unless needed emergently) Glycemic control Further work up for as per primary team Thanks for allowing me to participate in care of your patient. Will follow patient with you. Please call if any Qs. had d/w team Dr Heriberto Hernandez Office: [phone] reason for consult; ROBIN and electrolytes abnormalities HPI: pt is a 62 F with hx of HTN, depression who was recently admitted to hospital with ROBIN required few session of HD then improved with cr 1.2, also with infective endocarditis with severe MR but pt refused surgery and decided only for IV antibiotics treatments came as was feeling weak, found to have severe electrolytes depletion and renal consult for ROBIN. pt feels nervous. reports decreased oral intake and c.o loose stool besides that not providing much hx nor recent Iv contrast. noted low BP ROS: she is not able to provide much of ROS. unable to swallow Physical Examination: General Appearance: comfortable, in no acute respiratory distress, ill appearing and debilitated Vitals reviewed and noted as below Head; Atraumatic, normocephalic ENT: WNL EYES: Pupils are equal, round and reactive to light accommodation. Eye muscles and extraocular movement intact. Sclera is anicteric. Neck; supple no lymphadenopathy, no thyromegaly or bruit Lungs: Normal respiratory rate/effort. Breath sounds b/l decreased at bases with gurgling sounds in throat Heart: Increased rate. s1s2 normal. No rub or gallop. SM + at apex/LSB Extremities: 2-3+ edema with anasarca. No varicose veins Neurological: Patient is alert awake oriented follow commands Skin: Warm and dry. Normal turgor. Palpitation: Normal elasticity for age. skin echymoses + rash in lower extremity with blisetring and desquamation changes upper ext Abdomen: Abdomen is soft. Bowel sounds +. There is no abdominal tenderness, no guarding/rigidity no organomegaly Psych: lack insight. anxious MSK: no joint tenderness or swelling. Digits and nails normal, no deformity : kidney or bladder not palpable access: none Labs/imaging reviewed. Past medical history, past surgical history, family history, social history, allergy reviewed and noted as below Family hx: no hx of CKD. Rest non-contributory work up: Hep B/C/HIV neg renal imaging: unremarkable A1c 5.5% UA no protein 1+ blood LINDSEY/ANCA neg, K/L ratio WNLTSAT 9% ferritin 221 Vit D <12.8 PTH 268 FENa 0.3% TTKG 15 Objective - Vital Signs/Intake and Output Vital Signs (last 24 hours): Temp Pulse Resp BP Pulse Ox 99 F 121 H 20 138/77 90 L 09/05/18 04:00 09/05/18 12:00 09/05/18 12:00 09/05/18 12:00 09/05/18 10:00 Intake and Output: 09/05/18 09/05/18 06:59 18:59 Intake Total 150 200 Output Total 112 35 Balance 38 165 - Medications Medications: Current Medications Calcium/Vitamin D (Oyster Shell Calcium/Vitamin D 500 Mg-200 Iu) 1 tab PO BID [facility] Last Admin: 09/05/18 11:12 Dose: 1 tab Epoetin Morales (Procrit) 10,000 unit SC TTS [facility] Last Admin: 09/03/18 09:42 Dose: 10,000 unit Meropenem 500 mg/ Sodium (Chloride) 100 mls @ 100 mls/hr IVPB Q12H JOSE; Protocol Last Admin: 09/05/18 04:25 Dose: 100 mls/hr Folic Acid 1 mg/ Sodium (Chloride) 100.2 mls @ 60 mls/hr IV DAILY JOSE Last Admin: 09/05/18 11:16 Dose: 60 mls/hr Metoprolol Tartrate (Lopressor) 2.5 mg IVP BID JOSE Last Admin: 09/05/18 10:56 Dose: 2.5 mg Nystatin (Nystop Topical Powder) 1 applic TOP BID JOSE Stop: 09/15/18 10:01 Last Admin: 09/05/18 10:59 Dose: 1 applic Pantoprazole Sodium (Protonix Inj) 40 mg IVP DAILY [facility] Last Admin: 09/05/18 10:56 Dose: 40 mg Sodium Bicarbonate (Sodium Bicarbonate (8.4%) 50 Meq Syringe) 50 meq IVP Q12 JOSE Stop: 09/08/18 22:01 Thiamine HCl (Vitamin B1 Inj) 100 mg IV DAILY JOSE Stop: 09/10/18 10:01 Last Admin: 09/05/18 10:57 Dose: 100 mg Vitamin A (Vitamin A & D Oint Ud Foilpak) 0.5 ea TOP Q4 JOSE Last Admin: 09/05/18 08:00 Dose: 0.5 ea - Labs Labs: 09/04/18 06:07 09/05/18 09:49 PT 25.5 SECONDS (9.7-12.2) H 08/31/18 20:08 INR 2.3 08/31/18 20:08 APTT 34 SECONDS (21-34) 08/31/18 12:32
[2018-09-05 13:30] LABS: BASO # 0.2 K/uL (0.0-0.2); BASO % 0.9 % (0.0-2.0); EOS # 0.1 K/uL (0.0-0.7); EOS % 0.3 % (0.0-4.0); HEMOGLOBIN 9.5 g/dL (11.0-16.0); LYMPH # 2.8 K/uL (1.0-4.3); LYMPH % 12.3 % (20.0-40.0); MEAN CORPUSCULAR HEMOGLOBIN 30.2 pg (27.0-31.0); MEAN CORPUSCULAR HGB CONC 32.8 g/dL (33.0-37.0); MEAN PLATELET VOLUME 9.6 fL (7.2-11.7); MONO # 0.7 K/uL (0.0-0.8); MONO % 3.1 % (0.0-10.0); NEUT # 19.3 K/uL (1.8-7.0); NEUT % 83.4 % (50.0-75.0); NRBC % 0.1 % (0.0-2.0); RBC 3.13 Mil/uL (3.80-5.20); RED CELL DISTRIBUTION WIDTH 16.8 % (11.5-14.5); WHITE BLOOD COUNT 23.1 K/uL (4.8-10.8)
[2018-09-05 13:33] LABS: MEAN CELL VOLUME 92.1 fL (81.0-99.0)
--- NOTE | 2018-09-05 18:13 | CP.PCM.PN ---
Subjective - Date & Time of Evaluation Date of Evaluation: 09/05/18 Time of Evaluation: 12:15 - Subjective Subjective: clinically same Objective - Vital Signs/Intake and Output Vital Signs (last 24 hours): Temp Pulse Resp BP Pulse Ox 97.5 F L 112 H 25 H 123/38 L 97 09/05/18 16:00 09/05/18 18:01 09/05/18 18:01 09/05/18 18:01 09/05/18 18:01 Intake and Output: 09/05/18 09/05/18 06:59 18:59 Intake Total 150 400 Output Total 112 100 Balance 38 300 - Medications Medications: Current Medications Calcium/Vitamin D (Oyster Shell Calcium/Vitamin D 500 Mg-200 Iu) 1 tab PO BID [facility] Last Admin: 09/05/18 17:44 Dose: 1 tab Epoetin Morales (Procrit) 10,000 unit SC TTS [facility] Last Admin: 09/03/18 09:42 Dose: 10,000 unit Meropenem 500 mg/ Sodium (Chloride) 100 mls @ 100 mls/hr IVPB Q12H JOSE; Protocol Last Admin: 09/05/18 17:44 Dose: 100 mls/hr Folic Acid 1 mg/ Sodium (Chloride) 100.2 mls @ 60 mls/hr IV DAILY [facility] Last Admin: 09/05/18 11:16 Dose: 60 mls/hr Metoprolol Tartrate (Lopressor) 2.5 mg IVP BID [facility] Last Admin: 09/05/18 17:43 Dose: 2.5 mg Nystatin (Nystop Topical Powder) 1 applic TOP BID [facility] Stop: 09/15/18 10:01 Last Admin: 09/05/18 17:45 Dose: 1 applic Pantoprazole Sodium (Protonix Inj) 40 mg IVP DAILY [facility] Last Admin: 09/05/18 10:56 Dose: 40 mg Sodium Bicarbonate (Sodium Bicarbonate (8.4%) 50 Meq Syringe) 50 meq IVP Q12 JOSE Stop: 09/08/18 22:01 Thiamine HCl (Vitamin B1 Inj) 100 mg IV DAILY [facility] Stop: 09/10/18 10:01 Last Admin: 09/05/18 10:57 Dose: 100 mg Vitamin A (Vitamin A & D Oint Ud Foilpak) 0.5 ea TOP Q4 JOSE Last Admin: 11/12/18 17:46 Dose: 0.5 ea - Labs Labs: 09/05/18 13:15 09/05/18 09:49 PT 25.5 SECONDS (9.7-12.2) H 08/31/18 20:08 INR 2.3 08/31/18 20:08 APTT 34 SECONDS (21-34) 08/31/18 12:32 - Constitutional Appears: Well - Head Exam Head Exam: ATRAUMATIC, NORMAL INSPECTION, NORMOCEPHALIC - Eye Exam Eye Exam: EOMI, Normal appearance, PERRL Pupil Exam: NORMAL ACCOMODATION, PERRL - ENT Exam ENT Exam: Mucous Membranes Moist, Normal Exam - Neck Exam Neck Exam: Full ROM, Normal Inspection. absent: Lymphadenopathy - Respiratory Exam Respiratory Exam: Decreased Breath Sounds - Cardiovascular Exam Cardiovascular Exam: REGULAR RHYTHM, +S1, +S2 - GI/Abdominal Exam GI & Abdominal Exam: Soft, Diminished Bowel Sounds - Rectal Exam Rectal Exam: Deferred
--- NOTE | 2018-09-05 22:28 | CP.PCM.PN ---
Subjective - Date & Time of Evaluation Date of Evaluation: 09/05/18 Time of Evaluation: 19:00 - Subjective Subjective: Feeling better. Objective - Vital Signs/Intake and Output Vital Signs (last 24 hours): Temp Pulse Resp BP Pulse Ox 98.3 F 117 H 15 129/85 92 L 09/05/18 20:00 09/05/18 20:01 09/05/18 20:01 09/05/18 20:01 09/05/18 20:01 Intake and Output: 09/05/18 09/06/18 18:59 06:59 Intake Total 420 20 Output Total 105 45 Balance 315 -25 - Medications Medications: Current Medications Calcium/Vitamin D (Oyster Shell Calcium/Vitamin D 500 Mg-200 Iu) 1 tab PO BID [facility] Last Admin: 09/05/18 17:44 Dose: 1 tab Epoetin Morales (Procrit) 10,000 unit SC TTS [facility] Last Admin: 09/03/18 09:42 Dose: 10,000 unit Meropenem 500 mg/ Sodium (Chloride) 100 mls @ 100 mls/hr IVPB Q12H JOSE; Protocol Last Admin: 09/05/18 17:44 Dose: 100 mls/hr Folic Acid 1 mg/ Sodium (Chloride) 100.2 mls @ 60 mls/hr IV DAILY [facility] Last Admin: 09/05/18 11:16 Dose: 60 mls/hr Metoprolol Tartrate (Lopressor) 2.5 mg IVP BID [facility] Last Admin: 09/05/18 17:43 Dose: 2.5 mg Nystatin (Nystop Topical Powder) 1 applic TOP BID [facility] Stop: 09/15/18 10:01 Last Admin: 09/05/18 17:45 Dose: 1 applic Pantoprazole Sodium (Protonix Inj) 40 mg IVP DAILY [facility] Last Admin: 09/05/18 10:56 Dose: 40 mg Sodium Bicarbonate (Sodium Bicarbonate (8.4%) 50 Meq Syringe) 50 meq IVP Q12 JOSE Stop: 09/08/18 22:01 Last Admin: 09/05/18 22:19 Dose: 50 meq Thiamine HCl (Vitamin B1 Inj) 100 mg IV DAILY [facility] Stop: 09/10/18 10:01 Last Admin: 09/05/18 10:57 Dose: 100 mg Vitamin A (Vitamin A & D Oint Ud Foilpak) 0.5 ea TOP Q4 [facility] Last Admin: 09/05/18 20:31 Dose: 0.5 ea - Labs Labs: 09/05/18 13:15 09/05/18 09:49 PT 25.5 SECONDS (9.7-12.2) H 08/31/18 20:08 INR 2.3 08/31/18 20:08 APTT 34 SECONDS (21-34) 08/31/18 12:32 - Head Exam Head Exam: ATRAUMATIC - Eye Exam Eye Exam: Normal appearance - ENT Exam ENT Exam: Mucous Membranes Dry - Respiratory Exam Respiratory Exam: NORMAL BREATHING PATTERN - Cardiovascular Exam Cardiovascular Exam: +S1, +S2 - GI/Abdominal Exam GI & Abdominal Exam: Normal Bowel Sounds Assessment and Plan (1) Anemia Assessment & Plan: prior work up consistent with anemia of chronic disease anemia of CKD - KESHAWN per renal transfusion support PRN no iron, b12, folate deficiency Status: Acute
[2018-09-06] MEDS: Vitamins A & D Oint UD Foilpak TOP SCH ×7 (00:45→23:15)
[2018-09-06] MEDS: Meropenem 500 MG in Sodium Chloride 0.9% 100 ML IVPB SCH ×2 (04:45→17:36)
[2018-09-06 05:09] LABS: BASO # 0.1 K/uL (0.0-0.2); BASO % 0.5 % (0.0-2.0); EOS # 0.1 K/uL (0.0-0.7); EOS % 0.5 % (0.0-4.0); HEMOGLOBIN 8.5 g/dL (11.0-16.0); LYMPH # 2.8 K/uL (1.0-4.3); LYMPH % 18.1 % (20.0-40.0); MEAN CELL VOLUME 91.5 fL (81.0-99.0); MEAN CORPUSCULAR HEMOGLOBIN 30.3 pg (27.0-31.0); MEAN CORPUSCULAR HGB CONC 33.1 g/dL (33.0-37.0); MEAN PLATELET VOLUME 9.6 fL (7.2-11.7); MONO # 0.5 K/uL (0.0-0.8); MONO % 3.1 % (0.0-10.0); NEUT # 11.9 K/uL (1.8-7.0); NEUT % 77.8 % (50.0-75.0); NRBC % 0.5 % (0.0-2.0); RBC 2.81 Mil/uL (3.80-5.20); RED CELL DISTRIBUTION WIDTH 16.6 % (11.5-14.5); WHITE BLOOD COUNT 15.3 K/uL (4.8-10.8)
[2018-09-06 05:29] LABS: ALBUMIN 2.4 g/dL (3.5-5.0); CALCIUM 8.4 mg/dl (8.6-10.4)
[2018-09-06] MEDS ORDERED: Potassium Chloride 20 mEq/15 ml LIQ UD PO ONE (08:00)
[2018-09-06] MEDS: Thiamine 100 mg/ml Inj IV SCH (09:50)
[2018-09-06] MEDS: Sodium Bicarbonate (8.4%) 50 Meq Syringe IVP SCH (09:51)
[2018-09-06] MEDS: Metoprolol 1 mg/ml Inj IVP SCH ×2 (09:51→17:38)
--- NOTE | 2018-09-06 09:55 | CP.PCM.PN ---
Subjective - Date & Time of Evaluation Date of Evaluation: 09/06/18 Time of Evaluation: 09:54 - Subjective Subjective: No bleeding noted. Wants to eat regular food Objective - Vital Signs/Intake and Output Vital Signs (last 24 hours): Temp Pulse Resp BP Pulse Ox 98.8 F 124 H 19 124/82 100 09/06/18 04:00 09/06/18 07:01 09/06/18 07:01 09/06/18 07:01 09/06/18 07:01 Intake and Output: 09/06/18 09/06/18 06:59 18:59 Intake Total 40 0 Output Total 80 65 Balance -40 -65 - Medications Medications: Current Medications Calcium/Vitamin D (Oyster Shell Calcium/Vitamin D 500 Mg-200 Iu) 1 tab PO BID [facility] Last Admin: 09/05/18 17:44 Dose: 1 tab Epoetin Morales (Procrit) 10,000 unit SC TTS [facility] Last Admin: 09/03/18 09:42 Dose: 10,000 unit Meropenem 500 mg/ Sodium (Chloride) 100 mls @ 100 mls/hr IVPB Q12H [facility]; Protocol Last Admin: 09/06/18 04:45 Dose: 100 mls/hr Folic Acid 1 mg/ Sodium (Chloride) 100.2 mls @ 60 mls/hr IV DAILY [facility] Last Admin: 09/05/18 11:16 Dose: 60 mls/hr Potassium Chloride (Potassium Chloride 20 Meq/100 Ml) 20 meq in 100 mls @ 50 mls/hr IVPB ONCE ONE Stop: 09/06/18 11:44 Last Admin: 09/06/18 09:49 Dose: 50 mls/hr Metoprolol Tartrate (Lopressor) 2.5 mg IVP BID [facility] Last Admin: 09/06/18 09:51 Dose: 2.5 mg Nystatin (Nystop Topical Powder) 1 applic TOP BID [facility] Stop: 09/15/18 10:01 Last Admin: 09/05/18 17:45 Dose: 1 applic Pantoprazole Sodium (Protonix Inj) 40 mg IVP DAILY [facility] Last Admin: 09/06/18 09:51 Dose: 40 mg Sodium Bicarbonate (Sodium Bicarbonate (8.4%) 50 Meq Syringe) 50 meq IVP Q12 [facility] Stop: 09/08/18 22:01 Last Admin: 09/06/18 09:51 Dose: 50 meq Thiamine HCl (Vitamin B1 Inj) 100 mg IV DAILY [facility] Stop: 09/10/18 10:01 Last Admin: 09/06/18 09:50 Dose: 100 mg Vitamin A (Vitamin A & D Oint Ud Foilpak) 0.5 ea TOP Q4 [facility] Last Admin: 09/06/18 09:50 Dose: 0.5 ea - Labs Labs: 09/06/18 05:03 09/06/18 05:03 PT 25.5 SECONDS (9.7-12.2) H 08/31/18 20:08 INR 2.3 08/31/18 20:08 APTT 34 SECONDS (21-34) 08/31/18 12:32 - Constitutional Appears: No Acute Distress - Respiratory Exam Respiratory Exam: Decreased Breath Sounds, Rhonchi - Cardiovascular Exam Cardiovascular Exam: REGULAR RHYTHM, +S1 - GI/Abdominal Exam GI & Abdominal Exam: Soft, Normal Bowel Sounds. absent: Tenderness Additional comments: obese - Extremities Exam Extremities Exam: Pedal Edema Assessment and Plan (1) Anemia in chronic kidney disease Status: Acute (2) Rectal bleeding Assessment & Plan: Monitor for evidence of blood loss. Drop in H/H likely to be dilutional and related to ACD. Observe Status: Acute
[2018-09-06] MEDS: Calcium-Vit D 500 mg-200 Units Tab UD PO SCH ×2 (09:56→17:35)
[2018-09-06] MEDS: Epoetin Alfa 10,000 unit/ml Dialysis SC SCH (09:56)
--- NOTE | 2018-09-06 10:15 | CP.CCUPN ---
<Rajinder Shabazz - Last Filed: 09/06/18 10:12> CCU Subjective - Physician Review Events Since Last Encounter (Free Text): 09/06/18 10:12 No acute events overnight. Subjective (Free Text): 09/06/18 10:12 PGY1 Critical Care Progress Note for Dr. Seth Patient was seen and evaluated at bedside this morning. No new complaints. Patient denies chest pain, shortness of breath, headache, abdominal pain, nausea, vomiting, hematochezia, dizziness, pruritus, fever, and/or chills. Critical Care Time Spent (in minutes): 35 CCU Objective - Vital Signs / Intake & Output Vital Signs (Last 4 hours): Vital Signs Pulse Resp BP Pulse Ox 09/06/18 07:01 124 H 19 124/82 100 Intake and Output (Last 8hrs): Intake & Output 09/05/18 09/06/18 09/06/18 22:59 06:59 14:59 Intake Total 240 20 0 Output Total 100 30 65 Balance 140 -10 -65 Weight 167 lb 1.766 oz Intake: Intake, IV Amount 100 Left PICC 100 Oral 140 20 0 Output: Urine 70 30 5 Urethral ([place]) 70 30 5 Stool 30 60 - Physical Exam Head: Positive for: Atraumatic, Normocephalic Pupils: Positive for: PERRL Extroacular Muscles: Positive for: EOMI Conjunctiva: Positive for: Normal Mouth: Positive for: Dry (oral mucosa lesions and tenderness when asked to open mouth and stick out tongue ), Normal Tounge (tenderness). Negative for: Moist Mucous Membranes Nose (External): Positive for: Atraumatic Nose (Internal): Positive for: Normal Inspection Neck: Positive for: Normal Range of Motion Respiratory/Chest: Positive for: Clear to Auscultation. Negative for: Respiratory Distress, Accessory Muscle Use, Tachypneic Cardiovascular: Positive for: Murmurs (systolic crescendo-decrescendo murmur ), Normal S1, S2 Abdomen: Positive for: Tenderness (generalized ). Negative for: Distention, Peritoneal Signs, McBurney's Point Tender, Rovsing's Sign Present Genitourinary/Pelvic Exam: Negative for: Normal External Genitalia (sloughing of the skin located on mons pubis ) Back: Positive for: Paraspinal Tenderness Upper Extremity: Positive for: Edema (bilateral edema, bilateral bruising, bilateral erythema ), NORMAL PULSES. Negative for: Normal Inspection, Deformity Lower Extremity: Positive for: Edema (bilateral lower extremity edema with diffuse bruising in lower extremities bilaterally. Scattered pink papules in bilateral knees and shins) Neurological: Positive for: GCS=15, CN II-XII Intact, Speech Normal Skin: Positive for: Warm, Dry Psychiatric: Positive for: Alert, Oriented x 3, Normal Insight, Normal Concentration - Medications Active Medications: Active Medications Generic Name Dose Route Start Last Admin Trade Name Freq PRN Reason Stop Dose Admin Calcium/Vitamin D 1 tab 09/01/18 12:00 09/06/18 09:56 Oyster Shell Calcium/Vitamin D 500 Mg-200 Iu PO 1 tab BID JOSE Administration Epoetin Morales 10,000 unit 09/01/18 12:00 09/06/18 09:56 Procrit SC 10,000 unit TTS JOSE Administration Meropenem 500 mg/ Sodium 100 mls @ 100 mls/hr 09/03/18 17:00 09/06/18 04:45 Chloride IVPB 100 mls/hr Q12H JOSE Administration Protocol Folic Acid 1 mg/ Sodium 100.2 mls @ 60 mls/hr 09/04/18 10:00 09/06/18 10:02 Chloride IV 60 mls/hr DAILY JOSE Administration Potassium Chloride 20 meq in 100 mls @ 50 mls/hr 09/06/18 09:45 09/06/18 09:49 Potassium Chloride 20 Meq/100 Ml IVPB 09/06/18 11:44 50 mls/hr ONCE ONE Administration Metoprolol Tartrate 2.5 mg 09/04/18 19:00 09/06/18 09:51 Lopressor IVP 2.5 mg BID JOSE Administration Nystatin 1 applic 09/01/18 10:00 09/06/18 09:57 Nystop Topical Powder TOP 09/15/18 10:01 1 applic BID JOSE Administration Pantoprazole Sodium 40 mg 09/03/18 10:00 09/06/18 09:51 Protonix Inj IVP 40 mg DAILY JOSE Administration Sodium Bicarbonate 50 meq 09/05/18 22:00 09/06/18 09:51 Sodium Bicarbonate (8.4%) 50 Meq Syringe IVP 09/08/18 22:01 50 meq Q12 JOSE Administration Thiamine HCl 100 mg 09/04/18 10:45 09/06/18 09:50 Vitamin B1 Inj IV 09/10/18 10:01 100 mg DAILY JOSE Administration Vitamin A 0.5 ea 08/31/18 16:00 09/06/18 09:50 Vitamin A & D Oint Ud Foilpak TOP 0.5 ea Q4 JOSE Administration - Patient Studies Lab Studies: Microbiology Studies 09/03/18 00:03 - Final Blood Transfusion Bag - Preliminary NO GROWTH AFTER 3 DAYS 08/31/18 21:36 Blood Culture - Final Blood-Venous NO GROWTH AFTER 5 DAYS 08/31/18 21:36 Blood Culture - Final Blood-Venous NO GROWTH AFTER 5 DAYS Gram Stain - Final TEST NOT PERFORMED Lab Studies 09/06/18 09/06/18 09/06/18 Range/Units 05:53 05:03 05:03 WBC 15.3 H (4.8-10.8) K/uL RBC 2.81 L (3.80-5.20) Mil/uL Hgb 8.5 L (11.0-16.0) g/dL Hct 25.7 L (34.0-47.0) % MCV 91.5 (81.0-99.0) fL MCH 30.3 (27.0-31.0) pg MCHC 33.1 (33.0-37.0) g/dL RDW 16.6 H (11.5-14.5) % Plt Count 95 L D (130-400) K/uL MPV 9.6 (7.2-11.7) fL Neut % (Auto) 77.8 H (50.0-75.0) % Lymph % (Auto) 18.1 L (20.0-40.0) % Sharp % (Auto) 3.1 (0.0-10.0) % Eos % (Auto) 0.5 (0.0-4.0) % Baso % (Auto) 0.5 (0.0-2.0) % Neut # (Auto) 11.9 H (1.8-7.0) K/uL Lymph # (Auto) 2.8 (1.0-4.3) K/uL Sharp # (Auto) 0.5 (0.0-0.8) K/uL Eos # (Auto) 0.1 (0.0-0.7) K/uL Baso # (Auto) 0.1 (0.0-0.2) K/uL Retic Count (0.5-1.5) % Sodium 144 (132-148) mmol/L Potassium 3.3 L (3.6-5.2) mmol/L Chloride 113 H (98-107) mmol/L Carbon Dioxide 22 (22-30) mmol/L Anion Gap 12 (10-20) BUN 34 H (7-17) mg/dL Creatinine 2.4 H (0.7-1.2) mg/dL Est GFR ( Amer) 25 Est GFR (Non-Af Amer) 20 POC Glucose (mg/dL) 121 H (65-110) mg/dL Random Glucose 117 H (65-105) mg/dL Calcium 8.4 L (8.6-10.4) mg/dl Phosphorus 2.4 L (2.5-4.5) mg/dL Magnesium 1.9 (1.6-2.3) mg/dL Ferritin ng/mL Total Bilirubin 0.7 (0.2-1.3) mg/dL AST 11 L D (14-36) U/L ALT 12 (9-52) U/L Alkaline Phosphatase 186 H D (38-126) U/L Total Protein 4.8 L (6.3-8.3) g/dL Albumin 2.4 L (3.5-5.0) g/dL Globulin 2.4 (2.2-3.9) gm/dL Albumin/Globulin Ratio 1.0 (1.0-2.1) Vitamin B12 (239-931) pg/mL Folate ng/mL 09/06/18 09/05/18 09/05/18 Range/Units 00:09 20:59 17:44 WBC (4.8-10.8) K/uL RBC (3.80-5.20) Mil/uL Hgb (11.0-16.0) g/dL Hct (34.0-47.0) % MCV (81.0-99.0) fL MCH (27.0-31.0) pg MCHC (33.0-37.0) g/dL RDW (11.5-14.5) % Plt Count (130-400) K/uL MPV (7.2-11.7) fL Neut % (Auto) (50.0-75.0) % Lymph % (Auto) (20.0-40.0) % Sharp % (Auto) (0.0-10.0) % Eos % (Auto) (0.0-4.0) % Baso % (Auto) (0.0-2.0) % Neut # (Auto) (1.8-7.0) K/uL Lymph # (Auto) (1.0-4.3) K/uL Sharp # (Auto) (0.0-0.8) K/uL Eos # (Auto) (0.0-0.7) K/uL Baso # (Auto) (0.0-0.2) K/uL Retic Count (0.5-1.5) % Sodium (132-148) mmol/L Potassium (3.6-5.2) mmol/L Chloride (98-107) mmol/L Carbon Dioxide (22-30) mmol/L Anion Gap (10-20) BUN (7-17) mg/dL Creatinine (0.7-1.2) mg/dL Est GFR ( Amer) Est GFR (Non-Af Amer) POC Glucose (mg/dL) 123 H 129 H 141 H (65-110) mg/dL Random Glucose (65-105) mg/dL Calcium (8.6-10.4) mg/dl Phosphorus (2.5-4.5) mg/dL Magnesium (1.6-2.3) mg/dL Ferritin ng/mL Total Bilirubin (0.2-1.3) mg/dL AST (14-36) U/L ALT (9-52) U/L Alkaline Phosphatase (38-126) U/L Total Protein (6.3-8.3) g/dL Albumin (3.5-5.0) g/dL Globulin (2.2-3.9) gm/dL Albumin/Globulin Ratio (1.0-2.1) Vitamin B12 (239-931) pg/mL Folate ng/mL 09/05/18 09/05/18 09/05/18 Range/Units 13:15 11:18 09:49 WBC 23.1 H (4.8-10.8) K/uL RBC 3.13 L (3.80-5.20) Mil/uL Hgb 9.5 L (11.0-16.0) g/dL Hct 28.8 L (34.0-47.0) % MCV 92.1 D (81.0-99.0) fL MCH 30.2 (27.0-31.0) pg MCHC 32.8 L (33.0-37.0) g/dL RDW 16.8 H (11.5-14.5) % Plt Count 130 (130-400) K/uL MPV 9.6 (7.2-11.7) fL Neut % (Auto) 83.4 H (50.0-75.0) % Lymph % (Auto) 12.3 L (20.0-40.0) % Sharp % (Auto) 3.1 (0.0-10.0) % Eos % (Auto) 0.3 (0.0-4.0) % Baso % (Auto) 0.9 (0.0-2.0) % Neut # (Auto) 19.3 H (1.8-7.0) K/uL Lymph # (Auto) 2.8 (1.0-4.3) K/uL Sharp # (Auto) 0.7 (0.0-0.8) K/uL Eos # (Auto) 0.1 (0.0-0.7) K/uL Baso # (Auto) 0.2 (0.0-0.2) K/uL Retic Count 2.5 H D (0.5-1.5) % Sodium 142 (132-148) mmol/L Potassium 4.5 (3.6-5.2) mmol/L Chloride 112 H (98-107) mmol/L Carbon Dioxide 16 L (22-30) mmol/L Anion Gap 18 (10-20) BUN 31 H (7-17) mg/dL Creatinine 2.4 H (0.7-1.2) mg/dL Est GFR ( Amer) 25 Est GFR (Non-Af Amer) 20 POC Glucose (mg/dL) 112 H (65-110) mg/dL Random Glucose 112 H (65-105) mg/dL Calcium 8.0 L (8.6-10.4) mg/dl Phosphorus 2.7 (2.5-4.5) mg/dL Magnesium 1.9 (1.6-2.3) mg/dL Ferritin 760.0 ng/mL Total Bilirubin 0.9 (0.2-1.3) mg/dL AST 28 (14-36) U/L ALT 11 (9-52) U/L Alkaline Phosphatase 146 H D (38-126) U/L Total Protein 5.2 L (6.3-8.3) g/dL Albumin 2.5 L (3.5-5.0) g/dL Globulin 2.7 (2.2-3.9) gm/dL Albumin/Globulin Ratio 0.9 L (1.0-2.1) Vitamin B12 849 (239-931) pg/mL Folate 9.7 ng/mL 09/05/18 Range/Units 05:48 WBC (4.8-10.8) K/uL RBC (3.80-5.20) Mil/uL Hgb (11.0-16.0) g/dL Hct (34.0-47.0) % MCV (81.0-99.0) fL MCH (27.0-31.0) pg MCHC (33.0-37.0) g/dL RDW (11.5-14.5) % Plt Count (130-400) K/uL MPV (7.2-11.7) fL Neut % (Auto) (50.0-75.0) % Lymph % (Auto) (20.0-40.0) % Sharp % (Auto) (0.0-10.0) % Eos % (Auto) (0.0-4.0) % Baso % (Auto) (0.0-2.0) % Neut # (Auto) (1.8-7.0) K/uL Lymph # (Auto) (1.0-4.3) K/uL Sharp # (Auto) (0.0-0.8) K/uL Eos # (Auto) (0.0-0.7) K/uL Baso # (Auto) (0.0-0.2) K/uL Retic Count (0.5-1.5) % Sodium (132-148) mmol/L Potassium (3.6-5.2) mmol/L Chloride (98-107) mmol/L Carbon Dioxide (22-30) mmol/L Anion Gap (10-20) BUN (7-17) mg/dL Creatinine (0.7-1.2) mg/dL Est GFR ( Amer) Est GFR (Non-Af Amer) POC Glucose (mg/dL) 117 H (65-110) mg/dL Random Glucose (65-105) mg/dL Calcium (8.6-10.4) mg/dl Phosphorus (2.5-4.5) mg/dL Magnesium (1.6-2.3) mg/dL Ferritin ng/mL Total Bilirubin (0.2-1.3) mg/dL AST (14-36) U/L ALT (9-52) U/L Alkaline Phosphatase (38-126) U/L Total Protein (6.3-8.3) g/dL Albumin (3.5-5.0) g/dL Globulin (2.2-3.9) gm/dL Albumin/Globulin Ratio (1.0-2.1) Vitamin B12 (239-931) pg/mL Folate ng/mL Laboratory Results - last 24 hr 09/05/18 09/05/18 09/05/18 05:48 09:49 11:18 WBC RBC Hgb Hct MCV MCH MCHC RDW Plt Count MPV Neut % (Auto) Lymph % (Auto) Sharp % (Auto) Eos % (Auto) Baso % (Auto) Neut # (Auto) Lymph # (Auto) Sharp # (Auto) Eos # (Auto) Baso # (Auto) Retic Count Sodium 142 Potassium 4.5 Chloride 112 H Carbon Dioxide 16 L Anion Gap 18 BUN 31 H Creatinine 2.4 H Est GFR ( Amer) 25 Est GFR (Non-Af Amer) 20 POC Glucose (mg/dL) 117 H 112 H Random Glucose 112 H Calcium 8.0 L Phosphorus 2.7 Magnesium 1.9 Ferritin 760.0 Total Bilirubin 0.9 AST 28 ALT 11 Alkaline Phosphatase 146 H D Total Protein 5.2 L Albumin 2.5 L Globulin 2.7 Albumin/Globulin Ratio 0.9 L Vitamin B12 849 Folate 9.7 09/05/18 09/05/18 09/05/18 13:15 17:44 20:59 WBC 23.1 H RBC 3.13 L Hgb 9.5 L Hct 28.8 L MCV 92.1 D MCH 30.2 MCHC 32.8 L RDW 16.8 H Plt Count 130 MPV 9.6 Neut % (Auto) 83.4 H Lymph % (Auto) 12.3 L Sharp % (Auto) 3.1 Eos % (Auto) 0.3 Baso % (Auto) 0.9 Neut # (Auto) 19.3 H Lymph # (Auto) 2.8 Sharp # (Auto) 0.7 Eos # (Auto) 0.1 Baso # (Auto) 0.2 Retic Count 2.5 H D Sodium Potassium Chloride Carbon Dioxide Anion Gap BUN Creatinine Est GFR ( Amer) Est GFR (Non-Af Amer) POC Glucose (mg/dL) 141 H 129 H Random Glucose Calcium Phosphorus Magnesium Ferritin Total Bilirubin AST ALT Alkaline Phosphatase Total Protein Albumin Globulin Albumin/Globulin Ratio Vitamin B12 Folate 09/06/18 09/06/18 09/06/18 00:09 05:03 05:03 WBC 15.3 H RBC 2.81 L Hgb 8.5 L Hct 25.7 L MCV 91.5 MCH 30.3 MCHC 33.1 RDW 16.6 H Plt Count 95 L D MPV 9.6 Neut % (Auto) 77.8 H Lymph % (Auto) 18.1 L Sharp % (Auto) 3.1 Eos % (Auto) 0.5 Baso % (Auto) 0.5 Neut # (Auto) 11.9 H Lymph # (Auto) 2.8 Sharp # (Auto) 0.5 Eos # (Auto) 0.1 Baso # (Auto) 0.1 Retic Count Sodium 144 Potassium 3.3 L Chloride 113 H Carbon Dioxide 22 Anion Gap 12 BUN 34 H Creatinine 2.4 H Est GFR ( Amer) 25 Est GFR (Non-Af Amer) 20 POC Glucose (mg/dL) 123 H Random Glucose 117 H Calcium 8.4 L Phosphorus 2.4 L Magnesium 1.9 Ferritin Total Bilirubin 0.7 AST 11 L D ALT 12 Alkaline Phosphatase 186 H D Total Protein 4.8 L Albumin 2.4 L Globulin 2.4 Albumin/Globulin Ratio 1.0 Vitamin B12 Folate 09/06/18 05:53 WBC RBC Hgb Hct MCV MCH MCHC RDW Plt Count MPV Neut % (Auto) Lymph % (Auto) Sharp % (Auto) Eos % (Auto) Baso % (Auto) Neut # (Auto) Lymph # (Auto) Sharp # (Auto) Eos # (Auto) Baso # (Auto) Retic Count Sodium Potassium Chloride Carbon Dioxide Anion Gap BUN Creatinine Est GFR ( Amer) Est GFR (Non-Af Amer) POC Glucose (mg/dL) 121 H Random Glucose Calcium Phosphorus Magnesium Ferritin Total Bilirubin AST ALT Alkaline Phosphatase Total Protein Albumin Globulin Albumin/Globulin Ratio Vitamin B12 Folate Fingerstick Blood Sugar Results: 123 Review of Systems - Review of Systems All systems: reviewed and no additional remarkable complaints except Critical Care Progress Note - Nutrition Nutrition: Nutrition Category Date Time Status Dysphagia/Modified Consistency Diet [DIET] Diets 09/05/18 Breakfast Active Assessment/Plan - Assessment and Plan (Free Text) Assessment: This is a 62-year-old female with PMH of renal insufficiency, hypertnesion, hyperlipidemia, and depression who was recently seen at [facility] for possible acute endocarditis. Today she presents for dizziness and hypotension. Patient was found to have hypokalemia in the ED (K+=1.1). Potassium administered to patient. Hypokalemia improved. Patient is being monitored and treated in ICU. Dr. Grant was consulted (recommendations appreciated) regarding history of endocarditis. Repeat ECHO was ordered. Neuro: - Agitation and confusion - Start Haloperidol BID (home-medication) - Monitor neuro checks CV: - History of possible acute endocarditis with Staph infection - EKG abnormal with sinus tachycardia and right atrial enlargement Pulm: - No acute issues - Monitor - Maintain O2 sat > 92% - O2 PRN 2L NC GI: - Malnutrition & anasarca - Continue Vitamin C, Zinc, Calcium, Vitamin D - CT ABD/ Pelvis: Gallbladder distention. No calcified gallstones. Coarse hepatic calcifications. - GI consulted - Dr. Lopez W; recommendations appreciated - Stool occult - Negative Renal: - Renal insufficiency with anasarca - Dr. 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 Grant consulted; recommendations appreciated - Patient was getting IV antibiotics via PICC line as outpatient - Worsening leukocytosis - Continue nystatin topical BID - Continue Vitamin C, Zinc, Calcium, Vitamin D Heme: - Normocytic anemia; chronic - Start procrit * Type & Screen and transfusion will be performed as necessary (consent obtained from Next Of Kin, as patient is confused) * GI consulted; Dr. John Correa; recommendations appreciated * Monitor H/H MSK: - CT ABD/Pelvis: Multple compression fracture deformities (most severe L1); please see full report Patient seen and case discussed in detail with Dr. Rolo Shabazz PGY1 <Dave Seth - Last Filed: 09/06/18 18:08> CCU Objective - Vital Signs / Intake & Output Intake and Output (Last 8hrs): Intake & Output 09/06/18 09/06/18 09/06/18 06:59 14:59 22:59 Intake Total 20 0 Output Total 30 65 Balance -10 -65 Weight 167 lb 1.766 oz Intake: Oral 20 0 Output: Urine 30 5 Urethral ([place]) 30 5 Stool 60 - Medications Active Medications: Active Medications Generic Name Dose Route Start Last Admin Trade Name Freq PRN Reason Stop Dose Admin Calcium/Vitamin D 1 tab 09/01/18 12:00 09/06/18 17:35 Oyster Shell Calcium/Vitamin D 500 Mg-200 Iu PO Not Given BID JOSE Epoetin Morales 10,000 unit 09/01/18 12:00 09/06/18 09:56 Procrit SC 10,000 unit TTS JOSE Administration Meropenem 500 mg/ Sodium 100 mls @ 100 mls/hr 09/03/18 17:00 09/06/18 17:36 Chloride IVPB 100 mls/hr Q12H JOSE Administration Protocol Folic Acid 1 mg/ Sodium 100.2 mls @ 60 mls/hr 09/04/18 10:00 09/06/18 10:02 Chloride IV 60 mls/hr DAILY JOSE Administration Lactated Ringer's 1,000 mls @ 75 mls/hr 09/06/18 16:15 09/06/18 16:30 Lactated Ringer's IV 75 mls/hr .[id number] JOSE Administration Metoprolol Tartrate 2.5 mg 09/04/18 19:00 09/06/18 17:38 Lopressor IVP 2.5 mg BID JOSE Administration Nystatin 1 applic 09/01/18 10:00 11/13/18 17:36 Nystop Topical Powder TOP 09/15/18 10:01 1 applic BID JOSE Administration Pantoprazole Sodium 40 mg 09/03/18 10:00 09/06/18 09:51 Protonix Inj IVP 40 mg DAILY JOSE Administration Sodium Bicarbonate 50 meq 09/07/18 10:00 Sodium Bicarbonate (8.4%) 50 Meq Syringe IVP 09/08/18 22:01 DAILY JOSE Thiamine HCl 100 mg 09/04/18 10:45 09/06/18 09:50 Vitamin B1 Inj IV 09/10/18 10:01 100 mg DAILY JOSE Administration Vitamin A 0.5 ea 08/31/18 16:00 09/06/18 17:37 Vitamin A & D Oint Ud Foilpak TOP 0.5 ea Q4 JOSE Administration - Patient Studies Lab Studies: Microbiology Studies 09/03/18 00:03 - Final Blood Transfusion Bag - Preliminary NO GROWTH AFTER 3 DAYS 08/31/18 21:36 Blood Culture - Final Blood-Venous NO GROWTH AFTER 5 DAYS 08/31/18 21:36 Blood Culture - Final Blood-Venous NO GROWTH AFTER 5 DAYS Gram Stain - Final TEST NOT PERFORMED Lab Studies 09/06/18 09/06/18 09/06/18 Range/Units 17:38 11:11 10:43 WBC (4.8-10.8) K/uL RBC (3.80-5.20) Mil/uL Hgb (11.0-16.0) g/dL Hct (34.0-47.0) % MCV (81.0-99.0) fL MCH (27.0-31.0) pg MCHC (33.0-37.0) g/dL RDW (11.5-14.5) % Plt Count (130-400) K/uL MPV (7.2-11.7) fL Neut % (Auto) (50.0-75.0) % Lymph % (Auto) (20.0-40.0) % Sharp % (Auto) (0.0-10.0) % Eos % (Auto) (0.0-4.0) % Baso % (Auto) (0.0-2.0) % Neut # (Auto) (1.8-7.0) K/uL Lymph # (Auto) (1.0-4.3) K/uL Sharp # (Auto) (0.0-0.8) K/uL Eos # (Auto) (0.0-0.7) K/uL Baso # (Auto) (0.0-0.2) K/uL Sodium (132-148) mmol/L Potassium (3.6-5.2) mmol/L Chloride (98-107) mmol/L Carbon Dioxide (22-30) mmol/L Anion Gap (10-20) BUN (7-17) mg/dL Creatinine (0.7-1.2) mg/dL Est GFR ( Amer) Est GFR (Non-Af Amer) POC Glucose (mg/dL) 131 H 119 H (65-110) mg/dL Random Glucose (65-105) mg/dL Lactic Acid 1.1 (0.7-2.1) mmol/L Calcium (8.6-10.4) mg/dl Phosphorus (2.5-4.5) mg/dL Magnesium (1.6-2.3) mg/dL Total Bilirubin (0.2-1.3) mg/dL AST (14-36) U/L ALT (9-52) U/L Alkaline Phosphatase (38-126) U/L Total Protein (6.3-8.3) g/dL Albumin (3.5-5.0) g/dL Globulin (2.2-3.9) gm/dL Albumin/Globulin Ratio (1.0-2.1) 09/06/18 09/06/18 09/06/18 Range/Units 05:53 05:03 05:03 WBC 15.3 H (4.8-10.8) K/uL RBC 2.81 L (3.80-5.20) Mil/uL Hgb 8.5 L (11.0-16.0) g/dL Hct 25.7 L (34.0-47.0) % MCV 91.5 (81.0-99.0) fL MCH 30.3 (27.0-31.0) pg MCHC 33.1 (33.0-37.0) g/dL RDW 16.6 H (11.5-14.5) % Plt Count 95 L D (130-400) K/uL MPV 9.6 (7.2-11.7) fL Neut % (Auto) 77.8 H (50.0-75.0) % Lymph % (Auto) 18.1 L (20.0-40.0) % Sharp % (Auto) 3.1 (0.0-10.0) % Eos % (Auto) 0.5 (0.0-4.0) % Baso % (Auto) 0.5 (0.0-2.0) % Neut # (Auto) 11.9 H (1.8-7.0) K/uL Lymph # (Auto) 2.8 (1.0-4.3) K/uL Sharp # (Auto) 0.5 (0.0-0.8) K/uL Eos # (Auto) 0.1 (0.0-0.7) K/uL Baso # (Auto) 0.1 (0.0-0.2) K/uL Sodium 144 (132-148) mmol/L Potassium 3.3 L (3.6-5.2) mmol/L Chloride 113 H (98-107) mmol/L Carbon Dioxide 22 (22-30) mmol/L Anion Gap 12 (10-20) BUN 34 H (7-17) mg/dL Creatinine 2.4 H (0.7-1.2) mg/dL Est GFR ( Amer) 25 Est GFR (Non-Af Amer) 20 POC Glucose (mg/dL) 121 H (65-110) mg/dL Random Glucose 117 H (65-105) mg/dL Lactic Acid (0.7-2.1) mmol/L Calcium 8.4 L (8.6-10.4) mg/dl Phosphorus 2.4 L (2.5-4.5) mg/dL Magnesium 1.9 (1.6-2.3) mg/dL Total Bilirubin 0.7 (0.2-1.3) mg/dL AST 11 L D (14-36) U/L ALT 12 (9-52) U/L Alkaline Phosphatase 186 H D (38-126) U/L Total Protein 4.8 L (6.3-8.3) g/dL Albumin 2.4 L (3.5-5.0) g/dL Globulin 2.4 (2.2-3.9) gm/dL Albumin/Globulin Ratio 1.0 (1.0-2.1) 09/06/18 09/05/18 Range/Units 00:09 20:59 WBC (4.8-10.8) K/uL RBC (3.80-5.20) Mil/uL Hgb (11.0-16.0) g/dL Hct (34.0-47.0) % MCV (81.0-99.0) fL MCH (27.0-31.0) pg MCHC (33.0-37.0) g/dL RDW (11.5-14.5) % Plt Count (130-400) K/uL MPV (7.2-11.7) fL Neut % (Auto) (50.0-75.0) % Lymph % (Auto) (20.0-40.0) % Sharp % (Auto) (0.0-10.0) % Eos % (Auto) (0.0-4.0) % Baso % (Auto) (0.0-2.0) % Neut # (Auto) (1.8-7.0) K/uL Lymph # (Auto) (1.0-4.3) K/uL Sharp # (Auto) (0.0-0.8) K/uL Eos # (Auto) (0.0-0.7) K/uL Baso # (Auto) (0.0-0.2) K/uL Sodium (132-148) mmol/L Potassium (3.6-5.2) mmol/L Chloride (98-107) mmol/L Carbon Dioxide (22-30) mmol/L Anion Gap (10-20) BUN (7-17) mg/dL Creatinine (0.7-1.2) mg/dL Est GFR ( Amer) Est GFR (Non-Af Amer) POC Glucose (mg/dL) 123 H 129 H (65-110) mg/dL Random Glucose (65-105) mg/dL Lactic Acid (0.7-2.1) mmol/L Calcium (8.6-10.4) mg/dl Phosphorus (2.5-4.5) mg/dL Magnesium (1.6-2.3) mg/dL Total Bilirubin (0.2-1.3) mg/dL AST (14-36) U/L ALT (9-52) U/L Alkaline Phosphatase (38-126) U/L Total Protein (6.3-8.3) g/dL Albumin (3.5-5.0) g/dL Globulin (2.2-3.9) gm/dL Albumin/Globulin Ratio (1.0-2.1) Laboratory Results - last 24 hr 09/05/18 09/06/18 09/06/18 20:59 00:09 05:03 WBC 15.3 H RBC 2.81 L Hgb 8.5 L Hct 25.7 L MCV 91.5 MCH 30.3 MCHC 33.1 RDW 16.6 H Plt Count 95 L D MPV 9.6 Neut % (Auto) 77.8 H Lymph % (Auto) 18.1 L Sharp % (Auto) 3.1 Eos % (Auto) 0.5 Baso % (Auto) 0.5 Neut # (Auto) 11.9 H Lymph # (Auto) 2.8 Sharp # (Auto) 0.5 Eos # (Auto) 0.1 Baso # (Auto) 0.1 Sodium Potassium Chloride Carbon Dioxide Anion Gap BUN Creatinine Est GFR ( Amer) Est GFR (Non-Af Amer) POC Glucose (mg/dL) 129 H 123 H Random Glucose Lactic Acid Calcium Phosphorus Magnesium Total Bilirubin AST ALT Alkaline Phosphatase Total Protein Albumin Globulin Albumin/Globulin Ratio 09/06/18 09/06/18 09/06/18 05:03 05:53 10:43 WBC RBC Hgb Hct MCV MCH MCHC RDW Plt Count MPV Neut % (Auto) Lymph % (Auto) Sharp % (Auto) Eos % (Auto) Baso % (Auto) Neut # (Auto) Lymph # (Auto) Sharp # (Auto) Eos # (Auto) Baso # (Auto) Sodium 144 Potassium 3.3 L Chloride 113 H Carbon Dioxide 22 Anion Gap 12 BUN 34 H Creatinine 2.4 H Est GFR ( Amer) 25 Est GFR (Non-Af Amer) 20 POC Glucose (mg/dL) 121 H Random Glucose 117 H Lactic Acid 1.1 Calcium 8.4 L Phosphorus 2.4 L Magnesium 1.9 Total Bilirubin 0.7 AST 11 L D ALT 12 Alkaline Phosphatase 186 H D Total Protein 4.8 L Albumin 2.4 L Globulin 2.4 Albumin/Globulin Ratio 1.0 09/06/18 09/06/18 11:11 17:38 WBC RBC Hgb Hct MCV MCH MCHC RDW Plt Count MPV Neut % (Auto) Lymph % (Auto) Sharp % (Auto) Eos % (Auto) Baso % (Auto) Neut # (Auto) Lymph # (Auto) Sharp # (Auto) Eos # (Auto) Baso # (Auto) Sodium Potassium Chloride Carbon Dioxide Anion Gap BUN Creatinine Est GFR ( Amer) Est GFR (Non-Af Amer) POC Glucose (mg/dL) 119 H 131 H Random Glucose Lactic Acid Calcium Phosphorus Magnesium Total Bilirubin AST ALT Alkaline Phosphatase Total Protein Albumin Globulin Albumin/Globulin Ratio Critical Care Progress Note - Nutrition Nutrition: Nutrition Category Date Time Status Dysphagia/Modified Consistency Diet [DIET] Diets 09/05/18 Breakfast Active Attending/Attestation - Attestation I have personally seen and examined this patient.: Yes I have fully participated in the care of the patient.: Yes I have reviewed all pertinent clinical information: Yes Notes (Text): 09/06/18 17:59 I have seen and examined the patient. Medical records, lab studies, and imaging were reviewed by me and a management plan was formulated on multidisciplinary rounds with resident Dr. Shabazz. I agree with their documented assessment and plan. 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 Continue Meropenem to cover both disease processes. Repeat echo to assess vegetation. Will obtain CT chest/abdomen/pelvis to assess for any othe sources of infection, cannot give contrast with current renal function, acute on chronic renal failure. Critical Care Time 35 minutes. Multi-disciplinary rounds were performed with house staff, nursing, speech therapy, respiratory therapy, pharmacy and nutrition with integrated input from the primary team/attending and other consulting services. The documented time is cumulative and includes review of patient data/exams/labs/chart review and examination of the patient on rounds and throughout the day; time is exclusive of any procedures or teaching time. 09/06/18 18:06
--- NOTE | 2018-09-06 10:43 | CP.PCM.PN ---
Subjective - Date & Time of Evaluation Date of Evaluation: 09/06/18 Time of Evaluation: 10:42 - Subjective Subjective: Nephrology Consultation Note Assessment: critical Acute Kidney Injury (N17.9) likely due to ATN and pre-renal state: recent work up for GN neg HAGMA with ketonemia likely due to ROBIN and ketoacidosis hypovolemic hyponatremia, Hypokalemia, hypocalcemia and hypomagnesemia likely due to GI (due to diarrhoea) and renal loss (was on lasix) with limited oral intake severe hypoalbuminemia with malnutration with anasarca Hypertensive Chronic Kidney Disease (I12.9) Chronic Kidney Disease (N18.9) Stage 3 with 55 mg albuminuria Anemia acute on chronic severe Mitral regurg with infective endocarditis, depression/Anxiety Plan No acute need for dialysis Maintain hemodynamics stable. Avoid hypotension. Patient not on ACEI/ARB due to recent ROBIN Monitor Input/Output, daily weights and renal function with basic metabolic panel started Fe, MVI, and weekly Vit D, OScal D: held as pt unable to take PO c/w bicarb supplements 50 mg IVP daily. consider IV lasix 40 mg 1-2 times/day PRBC as needed. had transfusion 09/02/18.on ESAs supplement lytes as needed IV albumin as needed for low BP. Dietary consult. added thiamine as well. Dose meds/antibiotics for reduced GFR. Avoid fleets enema. Avoid nephrotoxins/NSAIDs/ iodinated contrast (unless needed emergently) Glycemic control Further work up for as per primary team Thanks for allowing me to participate in care of your patient. Will follow patient with you. Please call if any Qs. had d/w team Dr Heriberto Hernandez Office: [phone] reason for consult; ROBIN and electrolytes abnormalities HPI: pt is a 62 F with hx of HTN, depression who was recently admitted to hospital with ROBIN required few session of HD then improved with cr 1.2, also with infective endocarditis with severe MR but pt refused surgery and decided only for IV antibiotics treatments came as was feeling weak, found to have severe electrolytes depletion and renal consult for ROBIN. pt feels nervous. reports decreased oral intake and c.o loose stool besides that not providing much hx nor recent Iv contrast. noted low BP ROS: she is c/o lower back pain due to lying on it. denies SOB Physical Examination: General Appearance: comfortable, in no acute respiratory distress, ill appearing and debilitated Vitals reviewed and noted as below Head; Atraumatic, normocephalic ENT: WNL EYES: Pupils are equal, round and reactive to light accommodation. Eye muscles and extraocular movement intact. Sclera is anicteric. Neck; supple no lymphadenopathy, no thyromegaly or bruit Lungs: Normal respiratory rate/effort. Breath sounds b/l decreased at bases Heart: Increased rate. s1s2 normal. No rub or gallop. SM + at apex/LSB Extremities: 2-3+ edema with anasarca. No varicose veins Neurological: Patient is alert awake oriented follow commands Skin: Warm and dry. Normal turgor. Palpitation: Normal elasticity for age. skin echymoses + rash in lower extremity with blisetring and desquamation changes upper ext Abdomen: Abdomen is soft. Bowel sounds +. There is no abdominal tenderness, no guarding/rigidity no organomegaly Psych: lack insight. anxious MSK: no joint tenderness or swelling. Digits and nails normal, no deformity : kidney or bladder not palpable access: none Labs/imaging reviewed. Past medical history, past surgical history, family history, social history, allergy reviewed and noted as below Family hx: no hx of CKD. Rest non-contributory work up: Hep B/C/HIV neg renal imaging: unremarkable A1c 5.5% UA no protein 1+ blood LINDSEY/ANCA neg, K/L ratio WNLTSAT 9% ferritin 221 Vit D <12.8 PTH 268 FENa 0.3% TTKG 15 Objective - Vital Signs/Intake and Output Vital Signs (last 24 hours): Temp Pulse Resp BP Pulse Ox 98.8 F 124 H 19 124/82 100 09/06/18 04:00 09/06/18 07:01 09/06/18 07:01 09/06/18 07:01 09/06/18 07:01 Intake and Output: 09/06/18 09/06/18 06:59 18:59 Intake Total 40 0 Output Total 80 65 Balance -40 -65 - Medications Medications: Current Medications Calcium/Vitamin D (Oyster Shell Calcium/Vitamin D 500 Mg-200 Iu) 1 tab PO BID [facility] Last Admin: 09/06/18 09:56 Dose: 1 tab Epoetin Morales (Procrit) 10,000 unit SC TTS [facility] Last Admin: 09/06/18 09:56 Dose: 10,000 unit Meropenem 500 mg/ Sodium (Chloride) 100 mls @ 100 mls/hr IVPB Q12H [facility]; Protocol Last Admin: 09/06/18 04:45 Dose: 100 mls/hr Folic Acid 1 mg/ Sodium (Chloride) 100.2 mls @ 60 mls/hr IV DAILY [facility] Last Admin: 09/06/18 10:02 Dose: 60 mls/hr Potassium Chloride (Potassium Chloride 20 Meq/100 Ml) 20 meq in 100 mls @ 50 mls/hr IVPB ONCE ONE Stop: 09/06/18 11:44 Last Admin: 09/06/18 09:49 Dose: 50 mls/hr Metoprolol Tartrate (Lopressor) 2.5 mg IVP BID [facility] Last Admin: 09/06/18 09:51 Dose: 2.5 mg Nystatin (Nystop Topical Powder) 1 applic TOP BID [facility] Stop: 09/15/18 10:01 Last Admin: 09/06/18 09:57 Dose: 1 applic Pantoprazole Sodium (Protonix Inj) 40 mg IVP DAILY [facility] Last Admin: 09/06/18 09:51 Dose: 40 mg Sodium Bicarbonate (Sodium Bicarbonate (8.4%) 50 Meq Syringe) 50 meq IVP Q12 [facility] Stop: 09/08/18 22:01 Last Admin: 09/06/18 09:51 Dose: 50 meq Thiamine HCl (Vitamin B1 Inj) 100 mg IV DAILY [facility] Stop: 09/10/18 10:01 Last Admin: 09/06/18 09:50 Dose: 100 mg Vitamin A (Vitamin A & D Oint Ud Foilpak) 0.5 ea TOP Q4 [facility] Last Admin: 09/06/18 09:50 Dose: 0.5 ea - Labs Labs: 09/06/18 05:03 09/06/18 05:03 PT 25.5 SECONDS (9.7-12.2) H 08/31/18 20:08 INR 2.3 08/31/18 20:08 APTT 34 SECONDS (21-34) 08/31/18 12:32
[2018-09-06] MEDS ORDERED: Sodium Chloride 0.9% 500 ML IV ONE (11:41)
[2018-09-06] MEDS ORDERED: Lactated Ringer's 1,000 ML IV ONE (11:44)
--- NOTE | 2018-09-06 13:23 | CP.PCM.PN ---
Subjective - Date & Time of Evaluation Date of Evaluation: 09/06/18 Time of Evaluation: 08:00 - Subjective Subjective: discussed on rounds for CT chest abd pelvis r/o abscess, pyelo, septic emboli Objective - Vital Signs/Intake and Output Vital Signs (last 24 hours): Temp Pulse Resp BP Pulse Ox 98.8 F 124 H 19 124/82 100 09/06/18 04:00 09/06/18 07:01 09/06/18 07:01 09/06/18 07:01 09/06/18 07:01 Intake and Output: 09/06/18 09/06/18 06:59 18:59 Intake Total 40 0 Output Total 80 65 Balance -40 -65 - Medications Medications: Current Medications Calcium/Vitamin D (Oyster Shell Calcium/Vitamin D 500 Mg-200 Iu) 1 tab PO BID [facility] Last Admin: 09/06/18 09:56 Dose: 1 tab Epoetin Morales (Procrit) 10,000 unit SC TTS [facility] Last Admin: 09/06/18 09:56 Dose: 10,000 unit Meropenem 500 mg/ Sodium (Chloride) 100 mls @ 100 mls/hr IVPB Q12H [facility]; Protocol Last Admin: 09/06/18 04:45 Dose: 100 mls/hr Folic Acid 1 mg/ Sodium (Chloride) 100.2 mls @ 60 mls/hr IV DAILY [facility] Last Admin: 09/06/18 10:02 Dose: 60 mls/hr Metoprolol Tartrate (Lopressor) 2.5 mg IVP BID [facility] Last Admin: 09/06/18 09:51 Dose: 2.5 mg Nystatin (Nystop Topical Powder) 1 applic TOP BID [facility] Stop: 09/15/18 10:01 Last Admin: 09/06/18 09:57 Dose: 1 applic Pantoprazole Sodium (Protonix Inj) 40 mg IVP DAILY [facility] Last Admin: 09/06/18 09:51 Dose: 40 mg Sodium Bicarbonate (Sodium Bicarbonate (8.4%) 50 Meq Syringe) 50 meq IVP DAILY [facility] Stop: 09/08/18 22:01 Thiamine HCl (Vitamin B1 Inj) 100 mg IV DAILY [facility] Stop: 09/10/18 10:01 Last Admin: 09/06/18 09:50 Dose: 100 mg Vitamin A (Vitamin A & D Oint Ud Foilpak) 0.5 ea TOP Q4 [facility] Last Admin: 09/06/18 12:07 Dose: 0.5 ea - Labs Labs: 09/06/18 05:03 09/06/18 05:03 PT 25.5 SECONDS (9.7-12.2) H 08/31/18 20:08 INR 2.3 08/31/18 20:08 APTT 34 SECONDS (21-34) 08/31/18 12:32 - Constitutional Appears: Chronically Ill - Head Exam Head Exam: NORMOCEPHALIC - Eye Exam Eye Exam: absent: Scleral icterus - ENT Exam ENT Exam: Mucous Membranes Dry - Neck Exam Neck Exam: absent: Lymphadenopathy - Respiratory Exam Respiratory Exam: Decreased Breath Sounds - Cardiovascular Exam Cardiovascular Exam: REGULAR RHYTHM - GI/Abdominal Exam GI & Abdominal Exam: Distended Assessment and Plan (1) Leukocytosis Status: Acute (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
[2018-09-06] MEDS: Lactated Ringer's 1,000 ML IV SCH (16:30)
--- NOTE | 2018-09-06 17:51 | CARD ---
APPROVED REPORT Date of service: 09/06/2018 EXAM: LIMITED Two-dimensional and M-mode echocardiogram with Doppler and color Doppler. Other Information Quality : TDSRhythm : INDICATION Infection:Rule out subacute bacterial endocarditis LEFT VENTRICLE The left ventricular systolic function is normal. The left ventricular ejection fraction is within the normal range. There is normal LV segmental wall motion. RIGHT VENTRICLE The right ventricular systolic function is normal. ATRIA The left atrium size is normal. The right atrium size is normal. MITRAL VALVE The mitral valve is normal in structure. There is no mitral valve regurgitation noted. PERICARDIAL EFFUSION There is no gross pericardial effusion. <Conclusion> TECHNICALLY VERY DIFFICULT STUDY DUE TO POOR ACOUSTIC WINDOWS Grossly normal bi-ventricular contractily. The mitral valve is grossly normal in structure. There is no mitral valve regurgitation noted. There is no gross pericardial effusion. P.S.- Depending on the clinical issues, consider alternative cardiac imaging modalities
--- NOTE | 2018-09-06 18:17 | CP.PCM.PN ---
Subjective - Date & Time of Evaluation Date of Evaluation: 09/06/18 Time of Evaluation: 12:30 - Subjective Subjective: clinically same Objective - Vital Signs/Intake and Output Vital Signs (last 24 hours): Temp Pulse Resp BP Pulse Ox 98.8 F 124 H 19 124/82 100 09/06/18 04:00 09/06/18 07:01 09/06/18 07:01 09/06/18 07:01 09/06/18 07:01 Intake and Output: 09/06/18 09/06/18 06:59 18:59 Intake Total 40 0 Output Total 80 65 Balance -40 -65 - Medications Medications: Current Medications Calcium/Vitamin D (Oyster Shell Calcium/Vitamin D 500 Mg-200 Iu) 1 tab PO BID [facility] Last Admin: 09/06/18 17:35 Dose: Not Given Epoetin Morales (Procrit) 10,000 unit SC TTS [facility] Last Admin: 09/06/18 09:56 Dose: 10,000 unit Meropenem 500 mg/ Sodium (Chloride) 100 mls @ 100 mls/hr IVPB Q12H [facility]; Protocol Last Admin: 09/06/18 17:36 Dose: 100 mls/hr Folic Acid 1 mg/ Sodium (Chloride) 100.2 mls @ 60 mls/hr IV DAILY [facility] Last Admin: 09/06/18 10:02 Dose: 60 mls/hr Lactated Ringer's (Lactated Ringer's) 1,000 mls @ 75 mls/hr IV .[id number] [facility] Last Admin: 09/06/18 16:30 Dose: 75 mls/hr Metoprolol Tartrate (Lopressor) 2.5 mg IVP BID [facility] Last Admin: 09/06/18 17:38 Dose: 2.5 mg Nystatin (Nystop Topical Powder) 1 applic TOP BID [facility] Stop: 09/15/18 10:01 Last Admin: 09/06/18 17:36 Dose: 1 applic Pantoprazole Sodium (Protonix Inj) 40 mg IVP DAILY [facility] Last Admin: 09/06/18 09:51 Dose: 40 mg Sodium Bicarbonate (Sodium Bicarbonate (8.4%) 50 Meq Syringe) 50 meq IVP DAILY [facility] Stop: 09/08/18 22:01 Thiamine HCl (Vitamin B1 Inj) 100 mg IV DAILY [facility] Stop: 09/10/18 10:01 Last Admin: 09/06/18 09:50 Dose: 100 mg Vitamin A (Vitamin A & D Oint Ud Foilpak) 0.5 ea TOP Q4 [facility] Last Admin: 09/06/18 17:37 Dose: 0.5 ea - Labs Labs: 09/06/18 05:03 09/06/18 05:03 PT 25.5 SECONDS (9.7-12.2) H 08/31/18 20:08 INR 2.3 08/31/18 20:08 APTT 34 SECONDS (21-34) 08/31/18 12:32 - Constitutional Appears: Well - Head Exam Head Exam: ATRAUMATIC, NORMAL INSPECTION, NORMOCEPHALIC - Eye Exam Eye Exam: EOMI, Normal appearance, PERRL Pupil Exam: NORMAL ACCOMODATION, PERRL - ENT Exam ENT Exam: Mucous Membranes Moist, Normal Exam - Neck Exam Neck Exam: Full ROM, Normal Inspection. absent: Lymphadenopathy - Respiratory Exam Respiratory Exam: Decreased Breath Sounds - Cardiovascular Exam Cardiovascular Exam: REGULAR RHYTHM, +S1, +S2 - GI/Abdominal Exam GI & Abdominal Exam: Soft, Diminished Bowel Sounds - Rectal Exam Rectal Exam: Deferred
--- NOTE | 2018-09-06 21:08 | CP.PCM.PN ---
Subjective - Date & Time of Evaluation Date of Evaluation: 09/06/18 Time of Evaluation: 18:00 - Subjective Subjective: Feels thirsty Objective - Vital Signs/Intake and Output Vital Signs (last 24 hours): Temp Pulse Resp BP Pulse Ox 98.3 F 116 H 14 109/73 99 09/06/18 20:00 09/06/18 19:57 09/06/18 19:57 09/06/18 19:57 09/06/18 19:57 Intake and Output: 09/06/18 09/07/18 18:59 06:59 Intake Total 1825 150 Output Total 175 Balance 1650 150 - Medications Medications: Current Medications Calcium/Vitamin D (Oyster Shell Calcium/Vitamin D 500 Mg-200 Iu) 1 tab PO BID [facility] Last Admin: 09/06/18 17:35 Dose: Not Given Epoetin Morales (Procrit) 10,000 unit SC TTS [facility] Last Admin: 09/06/18 09:56 Dose: 10,000 unit Meropenem 500 mg/ Sodium (Chloride) 100 mls @ 100 mls/hr IVPB Q12H [facility]; Protocol Last Admin: 09/06/18 17:36 Dose: 100 mls/hr Folic Acid 1 mg/ Sodium (Chloride) 100.2 mls @ 60 mls/hr IV DAILY [facility] Last Admin: 09/06/18 10:02 Dose: 60 mls/hr Lactated Ringer's (Lactated Ringer's) 1,000 mls @ 75 mls/hr IV .[id number] [facility] Last Admin: 09/06/18 16:30 Dose: 75 mls/hr Metoprolol Tartrate (Lopressor) 2.5 mg IVP BID [facility] Last Admin: 09/06/18 17:38 Dose: 2.5 mg Nystatin (Nystop Topical Powder) 1 applic TOP BID [facility] Stop: 09/15/18 10:01 Last Admin: 09/06/18 17:36 Dose: 1 applic Pantoprazole Sodium (Protonix Inj) 40 mg IVP DAILY [facility] Last Admin: 09/06/18 09:51 Dose: 40 mg Sodium Bicarbonate (Sodium Bicarbonate (8.4%) 50 Meq Syringe) 50 meq IVP DAILY [facility] Stop: 09/08/18 22:01 Thiamine HCl (Vitamin B1 Inj) 100 mg IV DAILY [facility] Stop: 09/10/18 10:01 Last Admin: 09/06/18 09:50 Dose: 100 mg Vitamin A (Vitamin A & D Oint Ud Foilpak) 0.5 ea TOP Q4 [facility] Last Admin: 09/06/18 17:37 Dose: 0.5 ea - Labs Labs: 09/06/18 05:03 09/06/18 05:03 PT 25.5 SECONDS (9.7-12.2) H 08/31/18 20:08 INR 2.3 08/31/18 20:08 APTT 34 SECONDS (21-34) 08/31/18 12:32 - Head Exam Head Exam: ATRAUMATIC - Eye Exam Eye Exam: Normal appearance - ENT Exam ENT Exam: Mucous Membranes Dry - Respiratory Exam Respiratory Exam: NORMAL BREATHING PATTERN - Cardiovascular Exam Cardiovascular Exam: +S1, +S2 - GI/Abdominal Exam GI & Abdominal Exam: Normal Bowel Sounds Assessment and Plan (1) Anemia Assessment & Plan: prior work up consistent with anemia of chronic disease anemia of CKD - KESHAWN per renal transfusion support PRN no iron, b12, folate deficiency Status: Acute (2) Thrombocytopenia Assessment & Plan: mild ? medication related Status: Acute (3) Leukocytosis Assessment & Plan: on antibiotics Status: Acute
[2018-09-07] MEDS: Vitamins A & D Oint UD Foilpak TOP SCH ×5 (03:07→20:49)
[2018-09-07] MEDS: Lactated Ringer's 1,000 ML IV SCH (04:42)
[2018-09-07] MEDS: Meropenem 500 MG in Sodium Chloride 0.9% 100 ML IVPB SCH ×2 (04:42→17:01)
[2018-09-07 06:06] LABS: BASO % 0.4 % (0.0-2.0); EOS % 0.3 % (0.0-4.0); HEMOGLOBIN 8.3 g/dL (11.0-16.0); LYMPH # 2.1 K/uL (1.0-4.3); LYMPH % 24.3 % (20.0-40.0); MEAN CELL VOLUME 92.8 fL (81.0-99.0); MEAN CORPUSCULAR HGB CONC 33.4 g/dL (33.0-37.0); MEAN PLATELET VOLUME 10.8 fL (7.2-11.7); MONO # 0.4 K/uL (0.0-0.8); MONO % 4.5 % (0.0-10.0); NEUT # 6.2 K/uL (1.8-7.0); NEUT % 70.5 % (50.0-75.0); NRBC % 1.2 % (0.0-2.0); RBC 2.68 Mil/uL (3.80-5.20); RED CELL DISTRIBUTION WIDTH 16.6 % (11.5-14.5); WHITE BLOOD COUNT 8.8 K/uL (4.8-10.8)
[2018-09-07 06:22] LABS: ALB/GLOB RATIO 0.9 (1.0-2.1); ALBUMIN 2.3 g/dL (3.5-5.0); CALCIUM 8.3 mg/dl (8.6-10.4)
[2018-09-07] MEDS: Thiamine 100 mg/ml Inj IV SCH (09:05)
[2018-09-07] MEDS: Calcium-Vit D 500 mg-200 Units Tab UD PO SCH ×2 (09:06→17:08)
[2018-09-07] MEDS: Sodium Bicarbonate (8.4%) 50 Meq Syringe IVP SCH (09:08)
[2018-09-07] MEDS: Potassium & Sodium Phosphate PO ONE ×2 (09:24→10:00)
[2018-09-07] MEDS: Metoprolol 1 mg/ml Inj IVP SCH ×2 (09:26→17:02)
--- NOTE | 2018-09-07 09:47 | CP.PCM.PN ---
Subjective - Date & Time of Evaluation Date of Evaluation: 09/07/18 Time of Evaluation: 09:45 - Subjective Subjective: No bleeding, melena hgb=8.3 Objective - Vital Signs/Intake and Output Vital Signs (last 24 hours): Temp Pulse Resp BP Pulse Ox 97.8 F 112 H 19 116/62 97 09/07/18 08:00 09/07/18 08:00 09/07/18 08:00 09/07/18 08:00 09/07/18 08:00 Intake and Output: 09/07/18 09/07/18 06:59 18:59 Intake Total 1000 75 Output Total 250 Balance 750 75 - Medications Medications: Current Medications Calcium/Vitamin D (Oyster Shell Calcium/Vitamin D 500 Mg-200 Iu) 1 tab PO BID [facility] Last Admin: 09/07/18 09:06 Dose: 1 tab Epoetin Morales (Procrit) 10,000 unit SC TTS [facility] Last Admin: 09/06/18 09:56 Dose: 10,000 unit Meropenem 500 mg/ Sodium (Chloride) 100 mls @ 100 mls/hr IVPB Q12H [facility]; Protocol Last Admin: 09/07/18 04:42 Dose: 100 mls/hr Folic Acid 1 mg/ Sodium (Chloride) 100.2 mls @ 60 mls/hr IV DAILY [facility] Last Admin: 09/07/18 09:17 Dose: 60 mls/hr Metoprolol Tartrate (Lopressor) 2.5 mg IVP BID [facility] Last Admin: 09/07/18 09:26 Dose: 2.5 mg Nystatin (Nystop Topical Powder) 1 applic TOP BID [facility] Stop: 09/15/18 10:01 Last Admin: 09/07/18 09:23 Dose: 1 applic Pantoprazole Sodium (Protonix Inj) 40 mg IVP DAILY [facility] Last Admin: 09/07/18 09:06 Dose: 40 mg Potassium Phos/Sodium Phos (Neutra-Phos) 1 pkt PO ONCE ONE Stop: 09/07/18 10:01 Last Admin: 09/07/18 09:24 Dose: Not Given Sodium Bicarbonate (Sodium Bicarbonate (8.4%) 50 Meq Syringe) 50 meq IVP DAILY [facility] Stop: 09/08/18 22:01 Last Admin: 09/07/18 09:08 Dose: 50 meq Thiamine HCl (Vitamin B1 Inj) 100 mg IV DAILY [facility] Stop: 09/10/18 10:01 Last Admin: 09/07/18 09:05 Dose: 100 mg Vitamin A (Vitamin A & D Oint Ud Foilpak) 0.5 ea TOP Q4 [facility] Last Admin: 09/07/18 08:05 Dose: 0.5 ea - Labs Labs: 09/07/18 05:59 09/07/18 05:59 PT 25.5 SECONDS (9.7-12.2) H 08/31/18 20:08 INR 2.3 08/31/18 20:08 APTT 34 SECONDS (21-34) 08/31/18 12:32 - Constitutional Appears: No Acute Distress - Head Exam Additional comments: Cushingoid - Eye Exam Eye Exam: EOMI, PERRL - Respiratory Exam Respiratory Exam: Decreased Breath Sounds, Rhonchi - Cardiovascular Exam Cardiovascular Exam: REGULAR RHYTHM - GI/Abdominal Exam GI & Abdominal Exam: Soft, Normal Bowel Sounds. absent: Tenderness Additional comments: morbidly obese - Extremities Exam Extremities Exam: Pedal Edema Assessment and Plan (1) Anemia in chronic kidney disease Status: Acute (2) Rectal bleeding Assessment & Plan: No further bleeding noted. Stool OB-. Colonoscopy to evaluate when clinically stable as out patient in absence of overt bleeding. Status: Acute
--- NOTE | 2018-09-07 13:12 | CT ---
Date of service: 09/07/2018 PROCEDURE: CT Chest, Abdomen and Pelvis without intravenous contrast HISTORY: r/o other sources of sepsis, known endocarditis/ut COMPARISON: Abdomen Pelvis CT without contrast 08/31/2018. Portable chest 09/04/2018. TECHNIQUE: Helical ct of the chest, abdomen and pelvis was performed without oral or intravenous contrast as requested. Reformatted dataset provided in multiple planes. Radiation dose: Total exam DLP = 1489.03 mGy-cm. This CT exam was performed using one or more of the following dose reduction techniques: Automated exposure control, adjustment of the mA and/or kV according to patient size, and/or use of iterative reconstruction technique. FINDINGS: CT CHEST WITHOUT CONTRAST: LUNGS: Minimal patchy airspace disease seen in the right upper lobe including apex and perihilar sub segments. Limited dependent atelectasis is identified at right lower lobe at the costophrenic sulcus. Interval medial subsegmental atelectasis seen at the left medial basilar segment left lower lobe. Potential trace pneumonia is not excluded at either right upper lobe or underlying atelectatic lower lobe subsegments. MEDIASTINUM: Thoracic inlet is remarkable for left PICC catheter which terminates at the distal superior vena cava. Extensive coronary artery calcified atherosclerosis appreciated with minimal thoracic aortic atherosclerosis calcified. Normal thoracic aortic caliber as well as main pulmonary artery. No pulmonary vascular congestion. Normal sized heart. LYMPH NODES: No significant lymphadenopathy in the chest. PLEURA: No pleural or pericardial effusion. No pneumothorax bilaterally. 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 Mild compression fractures involving T9 and T10 are reiterated with [id number] T12 compression fracture again evident. OTHER FINDINGS: None. CT ABDOMEN AND PELVIS: LIVER: Hepatic granulomata are reiterated at the medial right lobe liver. GALLBLADDER AND BILE DUCTS: Limited distention of the gallbladder is appreciated, though diminished in volume in the interval. Cholelithiasis is again seen at the depended neck region. No acute changes related. PANCREAS: Unremarkable. No gross lesion or ductal dilatation. SPLEEN: Unremarkable. ADRENALS: Unremarkable. No mass. KIDNEYS AND URETERS: No hydronephrosis bilaterally once again. Nonspecific streaky perinephric changes appears stable. No radiodense urolithiasis associated. VASCULATURE: Nonaneurysmal abdominal aortic calcific atherosclerotic changes are identified. BOWEL: Stomach is collapsed and poorly evaluated. No bowel obstruction evident. Small large-bowel loops appear nonfocal as imaged once again. Rectal tube is identified in situ in the interval. APPENDIX: Normal appendix. PERITONEUM: No ascites identified in the abdomen or mesenteric edema. Trace ascites is seen in the pelvis of uncertain origin. LYMPH NODES: Unremarkable. No enlarged lymph nodes. BLADDER: Urinary bladder is decompressed by [place] catheter inserted in the interval and otherwise appears unremarkable. REPRODUCTIVE: Unremarkable. BONES: Compression fractures are reiterated at L1, L2, L3 and L4 with limited spondylolisthesis L4 anterior to L5. No spondylolysis apparent. OTHER FINDINGS: Edematous changes are identified at the left greater than right flank superficial and deep subcutaneous soft tissue extending into the lateral buttocks and upper thigh dermis and deep subcutaneous fat without emphysematous change or retained radiodense foreign body associated. IMPRESSION: 1. Bilateral lower lobe atelectasis with underlying infiltrates not completely excluded. Trace airspace disease in the right upper lobe potentially reflecting early infiltrate. Clinically correlate further. 2. No significant thoracic lymphadenopathy. 3. Partially decompressed gallbladder with no inflammatory changes related. Cholelithiasis suggested. 4. Hepatic granulomata reiterated. 5. No suspicious bowel findings though limited due lack of oral and intravenous contrast agents.
--- NOTE | 2018-09-07 13:52 | CP.CCUPN ---
<Rajinder Shabazz - Last Filed: 09/07/18 15:18> CCU Subjective - Physician Review Events Since Last Encounter (Free Text): 09/07/18 13:53 No acute events Subjective (Free Text): 09/07/18 13:49 PGY1 Critical Care Progress Note for Dr. Martínez Patient was seen and evaluated at bedside this morning. Patient complaining of pain to her skin lesions. Patient denies chest pain, shortness of breath, headache, nausea, vomiting, hematochezia, dizziness, fever, and/or chills. Critical Care Time Spent (in minutes): 35 CCU Objective - Vital Signs / Intake & Output Vital Signs (Last 4 hours): Vital Signs Temp Pulse Resp BP Pulse Ox 09/07/18 13:01 110 H 12 09/07/18 13:00 111 H 18 130/73 97 09/07/18 12:02 116 H 15 09/07/18 12:00 98.4 F 116 H 19 127/71 98 09/07/18 11:30 153/71 H 09/07/18 11:02 122 H 16 09/07/18 11:00 122 H 18 135/71 97 09/07/18 10:00 117 H 16 132/79 100 Intake and Output (Last 8hrs): Intake & Output 09/06/18 09/07/18 09/07/18 22:59 06:59 14:59 Intake Total 650 700 275 Output Total 110 250 Balance 540 450 275 Weight 163 lb Intake: Intake, IV Amount 550 700 175 Right Wrist 550 700 175 Oral 100 100 Output: Urine 110 150 Urethral ([place]) 110 150 Stool 100 - Physical Exam Head: Positive for: Atraumatic, Normocephalic Pupils: Positive for: PERRL Extroacular Muscles: Positive for: EOMI Conjunctiva: Positive for: Normal Mouth: Positive for: Dry (oral mucosa lesions and tenderness when asked to open mouth and stick out tongue ), Normal Tounge (tenderness). Negative for: Moist Mucous Membranes Nose (External): Positive for: Atraumatic Nose (Internal): Positive for: Normal Inspection Neck: Positive for: Normal Range of Motion Respiratory/Chest: Positive for: Clear to Auscultation. Negative for: Respiratory Distress, Accessory Muscle Use, Tachypneic Cardiovascular: Positive for: Murmurs (systolic crescendo-decrescendo murmur ), Normal S1, S2 Abdomen: Positive for: Tenderness (generalized ). Negative for: Distention, Peritoneal Signs, McBurney's Point Tender, Rovsing's Sign Present Genitourinary/Pelvic Exam: Negative for: Normal External Genitalia (sloughing of the skin located on mons pubis ) Back: Positive for: Paraspinal Tenderness Upper Extremity: Positive for: Edema (bilateral edema, bilateral bruising, bilateral erythema ), NORMAL PULSES. Negative for: Normal Inspection, Deformity Lower Extremity: Positive for: Edema (bilateral lower extremity edema with diffuse bruising in lower extremities bilaterally. Scattered pink papules in bilateral knees and shins) Neurological: Positive for: GCS=15, CN II-XII Intact, Speech Normal Skin: Positive for: Warm, Dry Psychiatric: Positive for: Alert, Oriented x 3, Normal Insight, Normal Concentration - Medications Active Medications: Active Medications Generic Name Dose Route Start Last Admin Trade Name Freq PRN Reason Stop Dose Admin Calcium/Vitamin D 1 tab 09/01/18 12:00 09/07/18 09:06 Oyster Shell Calcium/Vitamin D 500 Mg-200 Iu PO 1 tab BID JOSE Administration Epoetin Morales 10,000 unit 09/01/18 12:00 09/06/18 09:56 Procrit SC 10,000 unit TTS JOSE Administration Furosemide 40 mg 09/07/18 11:00 09/07/18 11:30 Lasix IVP 40 mg DAILY JOSE Administration Meropenem 500 mg/ Sodium 100 mls @ 100 mls/hr 09/03/18 17:00 09/07/18 04:42 Chloride IVPB 100 mls/hr Q12H JOSE Administration Protocol Folic Acid 1 mg/ Sodium 100.2 mls @ 60 mls/hr 09/04/18 10:00 09/07/18 09:17 Chloride IV 60 mls/hr DAILY JOSE Administration Metoprolol Tartrate 2.5 mg 09/04/18 19:00 09/07/18 09:26 Lopressor IVP 2.5 mg BID JOSE Administration Nystatin 1 applic 09/01/18 10:00 09/07/18 09:23 Nystop Topical Powder TOP 09/15/18 10:01 1 applic BID JOSE Administration Pantoprazole Sodium 40 mg 09/08/18 10:00 Protonix Ec Tab PO DAILY JOSE Sodium Bicarbonate 50 meq 09/07/18 10:00 09/07/18 09:08 Sodium Bicarbonate (8.4%) 50 Meq Syringe IVP 09/08/18 22:01 50 meq DAILY JOSE Administration Thiamine HCl 100 mg 09/04/18 10:45 09/07/18 09:05 Vitamin B1 Inj IV 09/10/18 10:01 100 mg DAILY JOSE Administration Vitamin A 0.5 ea 08/31/18 16:00 09/07/18 11:31 Vitamin A & D Oint Ud Foilpak TOP 0.5 ea Q4 JOSE Administration - Patient Studies Lab Studies: Microbiology Studies 09/03/18 00:03 - Final Blood Transfusion Bag - Preliminary NO GROWTH AFTER 4 DAYS Lab Studies 09/07/18 09/07/18 09/07/18 Range/Units 11:34 05:59 05:59 WBC 8.8 (4.8-10.8) K/uL RBC 2.68 L (3.80-5.20) Mil/uL Hgb 8.3 L (11.0-16.0) g/dL Hct 24.9 L (34.0-47.0) % MCV 92.8 (81.0-99.0) fL MCH 31.0 (27.0-31.0) pg MCHC 33.4 (33.0-37.0) g/dL RDW 16.6 H (11.5-14.5) % Plt Count 85 L (130-400) K/uL MPV 10.8 (7.2-11.7) fL Neut % (Auto) 70.5 (50.0-75.0) % Lymph % (Auto) 24.3 (20.0-40.0) % [place] % (Auto) 4.5 (0.0-10.0) % Eos % (Auto) 0.3 (0.0-4.0) % Baso % (Auto) 0.4 (0.0-2.0) % Neut # (Auto) 6.2 (1.8-7.0) K/uL Lymph # (Auto) 2.1 (1.0-4.3) K/uL [place] # (Auto) 0.4 (0.0-0.8) K/uL Eos # (Auto) 0.0 (0.0-0.7) K/uL Baso # (Auto) 0.0 (0.0-0.2) K/uL Sodium 144 (132-148) mmol/L Potassium 3.7 (3.6-5.2) mmol/L Chloride 115 H (98-107) mmol/L Carbon Dioxide 23 (22-30) mmol/L Anion Gap 10 (10-20) BUN 34 H (7-17) mg/dL Creatinine 2.0 H (0.7-1.2) mg/dL Est GFR ( Amer) 31 Est GFR (Non-Af Amer) 25 POC Glucose (mg/dL) 145 H (65-110) mg/dL Random Glucose 101 (65-105) mg/dL Calcium 8.3 L (8.6-10.4) mg/dl Phosphorus 2.3 L (2.5-4.5) mg/dL Magnesium 1.8 (1.6-2.3) mg/dL Total Bilirubin 0.8 (0.2-1.3) mg/dL AST 11 L (14-36) U/L ALT 13 (9-52) U/L Alkaline Phosphatase 152 H (38-126) U/L Total Protein 4.7 L (6.3-8.3) g/dL Albumin 2.3 L (3.5-5.0) g/dL Globulin 2.4 (2.2-3.9) gm/dL Albumin/Globulin Ratio 0.9 L (1.0-2.1) 09/07/18 09/07/18 09/06/18 Range/Units 05:30 00:03 17:38 WBC (4.8-10.8) K/uL RBC (3.80-5.20) Mil/uL Hgb (11.0-16.0) g/dL Hct (34.0-47.0) % MCV (81.0-99.0) fL MCH (27.0-31.0) pg MCHC (33.0-37.0) g/dL RDW (11.5-14.5) % Plt Count (130-400) K/uL MPV (7.2-11.7) fL Neut % (Auto) (50.0-75.0) % Lymph % (Auto) (20.0-40.0) % [place] % (Auto) (0.0-10.0) % Eos % (Auto) (0.0-4.0) % Baso % (Auto) (0.0-2.0) % Neut # (Auto) (1.8-7.0) K/uL Lymph # (Auto) (1.0-4.3) K/uL [place] # (Auto) (0.0-0.8) K/uL Eos # (Auto) (0.0-0.7) K/uL Baso # (Auto) (0.0-0.2) K/uL Sodium (132-148) mmol/L Potassium (3.6-5.2) mmol/L Chloride (98-107) mmol/L Carbon Dioxide (22-30) mmol/L Anion Gap (10-20) BUN (7-17) mg/dL Creatinine (0.7-1.2) mg/dL Est GFR ( Amer) Est GFR (Non-Af Amer) POC Glucose (mg/dL) 97 123 H 131 H (65-110) mg/dL Random Glucose (65-105) mg/dL Calcium (8.6-10.4) mg/dl Phosphorus (2.5-4.5) mg/dL Magnesium (1.6-2.3) mg/dL Total Bilirubin (0.2-1.3) mg/dL AST (14-36) U/L ALT (9-52) U/L Alkaline Phosphatase (38-126) U/L Total Protein (6.3-8.3) g/dL Albumin (3.5-5.0) g/dL Globulin (2.2-3.9) gm/dL Albumin/Globulin Ratio (1.0-2.1) 09/06/18 Range/Units 11:11 WBC (4.8-10.8) K/uL RBC (3.80-5.20) Mil/uL Hgb (11.0-16.0) g/dL Hct (34.0-47.0) % MCV (81.0-99.0) fL MCH (27.0-31.0) pg MCHC (33.0-37.0) g/dL RDW (11.5-14.5) % Plt Count (130-400) K/uL MPV (7.2-11.7) fL Neut % (Auto) (50.0-75.0) % Lymph % (Auto) (20.0-40.0) % [place] % (Auto) (0.0-10.0) % Eos % (Auto) (0.0-4.0) % Baso % (Auto) (0.0-2.0) % Neut # (Auto) (1.8-7.0) K/uL Lymph # (Auto) (1.0-4.3) K/uL [place] # (Auto) (0.0-0.8) K/uL Eos # (Auto) (0.0-0.7) K/uL Baso # (Auto) (0.0-0.2) K/uL Sodium (132-148) mmol/L Potassium (3.6-5.2) mmol/L Chloride (98-107) mmol/L Carbon Dioxide (22-30) mmol/L Anion Gap (10-20) BUN (7-17) mg/dL Creatinine (0.7-1.2) mg/dL Est GFR ( Amer) Est GFR (Non-Af Amer) POC Glucose (mg/dL) 119 H (65-110) mg/dL Random Glucose (65-105) mg/dL Calcium (8.6-10.4) mg/dl Phosphorus (2.5-4.5) mg/dL Magnesium (1.6-2.3) mg/dL Total Bilirubin (0.2-1.3) mg/dL AST (14-36) U/L ALT (9-52) U/L Alkaline Phosphatase (38-126) U/L Total Protein (6.3-8.3) g/dL Albumin (3.5-5.0) g/dL Globulin (2.2-3.9) gm/dL Albumin/Globulin Ratio (1.0-2.1) Laboratory Results - last 24 hr 09/06/18 09/06/18 09/07/18 11:11 17:38 00:03 WBC RBC Hgb Hct MCV MCH MCHC RDW Plt Count MPV Neut % (Auto) Lymph % (Auto) [place] % (Auto) Eos % (Auto) Baso % (Auto) Neut # (Auto) Lymph # (Auto) [place] # (Auto) Eos # (Auto) Baso # (Auto) Sodium Potassium Chloride Carbon Dioxide Anion Gap BUN Creatinine Est GFR ( Amer) Est GFR (Non-Af Amer) POC Glucose (mg/dL) 119 H 131 H 123 H Random Glucose Calcium Phosphorus Magnesium Total Bilirubin AST ALT Alkaline Phosphatase Total Protein Albumin Globulin Albumin/Globulin Ratio 09/07/18 09/07/18 09/07/18 05:30 05:59 05:59 WBC 8.8 RBC 2.68 L Hgb 8.3 L Hct 24.9 L MCV 92.8 MCH 31.0 MCHC 33.4 RDW 16.6 H Plt Count 85 L MPV 10.8 Neut % (Auto) 70.5 Lymph % (Auto) 24.3 [place] % (Auto) 4.5 Eos % (Auto) 0.3 Baso % (Auto) 0.4 Neut # (Auto) 6.2 Lymph # (Auto) 2.1 [place] # (Auto) 0.4 Eos # (Auto) 0.0 Baso # (Auto) 0.0 Sodium 144 Potassium 3.7 Chloride 115 H Carbon Dioxide 23 Anion Gap 10 BUN 34 H Creatinine 2.0 H Est GFR ( Amer) 31 Est GFR (Non-Af Amer) 25 POC Glucose (mg/dL) 97 Random Glucose 101 Calcium 8.3 L Phosphorus 2.3 L Magnesium 1.8 Total Bilirubin 0.8 AST 11 L ALT 13 Alkaline Phosphatase 152 H Total Protein 4.7 L Albumin 2.3 L Globulin 2.4 Albumin/Globulin Ratio 0.9 L 09/07/18 11:34 WBC RBC Hgb Hct MCV MCH MCHC RDW Plt Count MPV Neut % (Auto) Lymph % (Auto) [place] % (Auto) Eos % (Auto) Baso % (Auto) Neut # (Auto) Lymph # (Auto) [place] # (Auto) Eos # (Auto) Baso # (Auto) Sodium Potassium Chloride Carbon Dioxide Anion Gap BUN Creatinine Est GFR ( Amer) Est GFR (Non-Af Amer) POC Glucose (mg/dL) 145 H Random Glucose Calcium Phosphorus Magnesium Total Bilirubin AST ALT Alkaline Phosphatase Total Protein Albumin Globulin Albumin/Globulin Ratio Fingerstick Blood Sugar Results: 97 Review of Systems - Review of Systems All systems: reviewed and no additional remarkable complaints except Critical Care Progress Note - Nutrition Nutrition: Nutrition Category Date Time Status Dysphagia/Modified Consistency Diet [DIET] Diets 09/05/18 Breakfast Active Assessment/Plan - Assessment and Plan (Free Text) Assessment: This is a 62-year-old female with PMH of renal insufficiency, hypertnesion, hyperlipidemia, and depression who was recently seen at [facility] for possible acute endocarditis. Today she presents for dizziness and hypotension. Patient was found to have hypokalemia in the ED (K+=1.1). Potassium administered to patient. Hypokalemia improved. Patient is being monitored and treated in ICU. Dr. Grant was consulted (recommendations appreciated) regarding history of endocarditis. Repeat ECHO was obtained and revealed no vegetations (see complete report for more detail.) Pain managed. Patient was started on lasix with good urine output. Patient is hemodynamically stable for transfer to telemetry. Neuro: - Agitation and confusion - Start Haloperidol BID (home-medication) - Monitor neuro checks CV: - History of acute endocarditis with Staph infection - EKG abnormal with sinus tachycardia and right atrial enlargement Pulm: - No acute issues - Monitor - Maintain O2 sat > 92% - O2 PRN 2L NC GI: - Malnutrition & anasarca - Continue Vitamin C, Zinc, Calcium, Vitamin D - CT ABD/ Pelvis: Gallbladder distention. No calcified gallstones. Coarse hepatic calcifications. - GI consulted - Dr. John Correa; recommendations appreciated - Stool occult - Negative Renal: - Renal insufficiency with anasarca - Dr. Hernandez consulted; recommendations appreciated - Severe hypokalemia, improved - Replete as necessary - Monitor CMP with Mg, Phos ID: - History of endocarditis - Repeat ECHO revealed no vegetations (see complete report for details) - Prior ECHO from approximately 1 month ago revealed vegetation in anterior mitral leaflet (*see previous ECHO for official report*) - Dr. Grant consulted; recommendations appreciated - Patient was getting IV antibiotics via PICC line as outpatient - Worsening leukocytosis - Continue nystatin topical BID - Continue Vitamin C, Zinc, Calcium, Vitamin D Heme: - Normocytic anemia; chronic - Start procrit * Type & Screen and transfusion will be performed as necessary (consent obtained from Next Of Kin, as patient is confused) * GI consulted; Dr. John Correa; recommendations appreciated * Monitor H/H MSK: - CT ABD/Pelvis: Multple compression fracture deformities (most severe L1); please see full report Patient seen and case discussed in detail with Dr. Mauricio Shabazz PGY1 <Prasanna Martínez S - Last Filed: 09/07/18 17:41> CCU Objective - Vital Signs / Intake & Output Vital Signs (Last 4 hours): Vital Signs Temp Pulse Resp BP Pulse Ox 09/07/18 17:01 116 H 15 100 09/07/18 17:00 116 H 18 122/72 99 09/07/18 16:01 114 H 13 99 09/07/18 16:00 99 F 114 H 18 124/76 99 09/07/18 15:01 108 H 12 09/07/18 15:00 108 H 18 131/83 98 09/07/18 14:00 107 H 18 125/74 96 Intake and Output (Last 8hrs): Intake & Output 09/07/18 09/07/18 09/07/18 06:59 14:59 22:59 Intake Total 700 275 50 Output Total 250 Balance 450 275 50 Weight 163 lb Intake: Intake, IV Amount 700 175 Right Wrist 700 175 Oral 100 50 Output: Urine 150 Urethral ([place]) 150 Stool 100 - Medications Active Medications: Active Medications Generic Name Dose Route Start Last Admin Trade Name Freq PRN Reason Stop Dose Admin Calcium/Vitamin D 1 tab 09/01/18 12:00 09/07/18 17:08 Oyster Shell Calcium/Vitamin D 500 Mg-200 Iu PO 1 tab BID JOSE Administration Epoetin Morales 10,000 unit 09/01/18 12:00 09/06/18 09:56 Procrit SC 10,000 unit TTS JOSE Administration Furosemide 40 mg 09/07/18 11:00 09/07/18 11:30 Lasix IVP 40 mg DAILY JOSE Administration Meropenem 500 mg/ Sodium 100 mls @ 100 mls/hr 09/03/18 17:00 09/07/18 17:01 Chloride IVPB 100 mls/hr Q12H JOSE Administration Protocol Folic Acid 1 mg/ Sodium 100.2 mls @ 60 mls/hr 09/04/18 10:00 09/07/18 09:17 Chloride IV 60 mls/hr DAILY JOSE Administration Metoprolol Tartrate 2.5 mg 09/04/18 19:00 09/07/18 17:02 Lopressor IVP 2.5 mg BID JOSE Administration Nystatin 1 applic 09/01/18 10:00 09/07/18 17:06 Nystop Topical Powder TOP 09/15/18 10:01 1 applic BID JOSE Administration Pantoprazole Sodium 40 mg 09/08/18 10:00 Protonix Ec Tab PO DAILY JOSE Sodium Bicarbonate 50 meq 09/07/18 10:00 09/07/18 09:08 Sodium Bicarbonate (8.4%) 50 Meq Syringe IVP 09/08/18 22:01 50 meq DAILY JOSE Administration Thiamine HCl 100 mg 09/04/18 10:45 09/07/18 09:05 Vitamin B1 Inj IV 09/10/18 10:01 100 mg DAILY JOSE Administration Vitamin A 0.5 ea 08/31/18 16:00 09/07/18 16:00 Vitamin A & D Oint Ud Foilpak TOP 0.5 ea Q4 JOSE Administration - Patient Studies Lab Studies: Microbiology Studies 09/06/18 13:15 Blood Culture - Preliminary Blood-Venous NO GROWTH AFTER 24 HOURS 09/06/18 13:45 Blood Culture - Preliminary Blood-Venous NO GROWTH AFTER 24 HOURS 09/03/18 00:03 - Final Blood Transfusion Bag - Preliminary NO GROWTH AFTER 4 DAYS Lab Studies 09/07/18 09/07/18 09/07/18 Range/Units 11:34 05:59 05:59 WBC 8.8 (4.8-10.8) K/uL RBC 2.68 L (3.80-5.20) Mil/uL Hgb 8.3 L (11.0-16.0) g/dL Hct 24.9 L (34.0-47.0) % MCV 92.8 (81.0-99.0) fL MCH 31.0 (27.0-31.0) pg MCHC 33.4 (33.0-37.0) g/dL RDW 16.6 H (11.5-14.5) % Plt Count 85 L (130-400) K/uL MPV 10.8 (7.2-11.7) fL Neut % (Auto) 70.5 (50.0-75.0) % Lymph % (Auto) 24.3 (20.0-40.0) % [place] % (Auto) 4.5 (0.0-10.0) % Eos % (Auto) 0.3 (0.0-4.0) % Baso % (Auto) 0.4 (0.0-2.0) % Neut # (Auto) 6.2 (1.8-7.0) K/uL Lymph # (Auto) 2.1 (1.0-4.3) K/uL [place] # (Auto) 0.4 (0.0-0.8) K/uL Eos # (Auto) 0.0 (0.0-0.7) K/uL Baso # (Auto) 0.0 (0.0-0.2) K/uL Sodium 144 (132-148) mmol/L Potassium 3.7 (3.6-5.2) mmol/L Chloride 115 H (98-107) mmol/L Carbon Dioxide 23 (22-30) mmol/L Anion Gap 10 (10-20) BUN 34 H (7-17) mg/dL Creatinine 2.0 H (0.7-1.2) mg/dL Est GFR ( Amer) 31 Est GFR (Non-Af Amer) 25 POC Glucose (mg/dL) 145 H (65-110) mg/dL Random Glucose 101 (65-105) mg/dL Calcium 8.3 L (8.6-10.4) mg/dl Phosphorus 2.3 L (2.5-4.5) mg/dL Magnesium 1.8 (1.6-2.3) mg/dL Total Bilirubin 0.8 (0.2-1.3) mg/dL AST 11 L (14-36) U/L ALT 13 (9-52) U/L Alkaline Phosphatase 152 H (38-126) U/L Total Protein 4.7 L (6.3-8.3) g/dL Albumin 2.3 L (3.5-5.0) g/dL Globulin 2.4 (2.2-3.9) gm/dL Albumin/Globulin Ratio 0.9 L (1.0-2.1) 09/07/18 09/07/18 09/06/18 Range/Units 05:30 00:03 17:38 WBC (4.8-10.8) K/uL RBC (3.80-5.20) Mil/uL Hgb (11.0-16.0) g/dL Hct (34.0-47.0) % MCV (81.0-99.0) fL MCH (27.0-31.0) pg MCHC (33.0-37.0) g/dL RDW (11.5-14.5) % Plt Count (130-400) K/uL MPV (7.2-11.7) fL Neut % (Auto) (50.0-75.0) % Lymph % (Auto) (20.0-40.0) % [place] % (Auto) (0.0-10.0) % Eos % (Auto) (0.0-4.0) % Baso % (Auto) (0.0-2.0) % Neut # (Auto) (1.8-7.0) K/uL Lymph # (Auto) (1.0-4.3) K/uL [place] # (Auto) (0.0-0.8) K/uL Eos # (Auto) (0.0-0.7) K/uL Baso # (Auto) (0.0-0.2) K/uL Sodium (132-148) mmol/L Potassium (3.6-5.2) mmol/L Chloride (98-107) mmol/L Carbon Dioxide (22-30) mmol/L Anion Gap (10-20) BUN (7-17) mg/dL Creatinine (0.7-1.2) mg/dL Est GFR ( Amer) Est GFR (Non-Af Amer) POC Glucose (mg/dL) 97 123 H 131 H (65-110) mg/dL Random Glucose (65-105) mg/dL Calcium (8.6-10.4) mg/dl Phosphorus (2.5-4.5) mg/dL Magnesium (1.6-2.3) mg/dL Total Bilirubin (0.2-1.3) mg/dL AST (14-36) U/L ALT (9-52) U/L Alkaline Phosphatase (38-126) U/L Total Protein (6.3-8.3) g/dL Albumin (3.5-5.0) g/dL Globulin (2.2-3.9) gm/dL Albumin/Globulin Ratio (1.0-2.1) Laboratory Results - last 24 hr 09/06/18 09/07/18 09/07/18 17:38 00:03 05:30 WBC RBC Hgb Hct MCV MCH MCHC RDW Plt Count MPV Neut % (Auto) Lymph % (Auto) [place] % (Auto) Eos % (Auto) Baso % (Auto) Neut # (Auto) Lymph # (Auto) [place] # (Auto) Eos # (Auto) Baso # (Auto) Sodium Potassium Chloride Carbon Dioxide Anion Gap BUN Creatinine Est GFR ( Amer) Est GFR (Non-Af Amer) POC Glucose (mg/dL) 131 H 123 H 97 Random Glucose Calcium Phosphorus Magnesium Total Bilirubin AST ALT Alkaline Phosphatase Total Protein Albumin Globulin Albumin/Globulin Ratio 09/07/18 09/07/18 09/07/18 05:59 05:59 11:34 WBC 8.8 RBC 2.68 L Hgb 8.3 L Hct 24.9 L MCV 92.8 MCH 31.0 MCHC 33.4 RDW 16.6 H Plt Count 85 L MPV 10.8 Neut % (Auto) 70.5 Lymph % (Auto) 24.3 [place] % (Auto) 4.5 Eos % (Auto) 0.3 Baso % (Auto) 0.4 Neut # (Auto) 6.2 Lymph # (Auto) 2.1 [place] # (Auto) 0.4 Eos # (Auto) 0.0 Baso # (Auto) 0.0 Sodium 144 Potassium 3.7 Chloride 115 H Carbon Dioxide 23 Anion Gap 10 BUN 34 H Creatinine 2.0 H Est GFR ( Amer) 31 Est GFR (Non-Af Amer) 25 POC Glucose (mg/dL) 145 H Random Glucose 101 Calcium 8.3 L Phosphorus 2.3 L Magnesium 1.8 Total Bilirubin 0.8 AST 11 L ALT 13 Alkaline Phosphatase 152 H Total Protein 4.7 L Albumin 2.3 L Globulin 2.4 Albumin/Globulin Ratio 0.9 L Critical Care Progress Note - Nutrition Nutrition: Nutrition Category Date Time Status Dysphagia/Modified Consistency Diet [DIET] Diets 09/05/18 Breakfast Active Attending/Attestation - Attestation I have personally seen and examined this patient.: Yes I have fully participated in the care of the patient.: Yes I have reviewed all pertinent clinical information: Yes Notes (Text): 09/07/18 17:40 Patient seen and examined in the intensive care unit. Stable for transfer to floor Continue monitoring and urine output Continue antibiotics
--- NOTE | 2018-09-07 15:36 | CP.PCM.PN ---
Subjective - Date & Time of Evaluation Date of Evaluation: 09/07/18 Time of Evaluation: 12:45 - Subjective Subjective: clinically same Objective - Vital Signs/Intake and Output Vital Signs (last 24 hours): Temp Pulse Resp BP Pulse Ox 98.4 F 108 H 12 131/83 98 09/07/18 12:00 09/07/18 15:01 09/07/18 15:01 09/07/18 15:00 09/07/18 15:00 Intake and Output: 09/07/18 09/07/18 06:59 18:59 Intake Total 1000 275 Output Total 250 Balance 750 275 - Medications Medications: Current Medications Calcium/Vitamin D (Oyster Shell Calcium/Vitamin D 500 Mg-200 Iu) 1 tab PO BID [facility] Last Admin: 09/07/18 09:06 Dose: 1 tab Epoetin Morales (Procrit) 10,000 unit SC TTS JOSE Last Admin: 09/06/18 09:56 Dose: 10,000 unit Furosemide (Lasix) 40 mg IVP DAILY [facility] Last Admin: 09/07/18 11:30 Dose: 40 mg Meropenem 500 mg/ Sodium (Chloride) 100 mls @ 100 mls/hr IVPB Q12H [facility]; Protocol Last Admin: 09/07/18 04:42 Dose: 100 mls/hr Folic Acid 1 mg/ Sodium (Chloride) 100.2 mls @ 60 mls/hr IV DAILY [facility] Last Admin: 09/07/18 09:17 Dose: 60 mls/hr Metoprolol Tartrate (Lopressor) 2.5 mg IVP BID [facility] Last Admin: 09/07/18 09:26 Dose: 2.5 mg Nystatin (Nystop Topical Powder) 1 applic TOP BID [facility] Stop: 09/15/18 10:01 Last Admin: 09/07/18 09:23 Dose: 1 applic Pantoprazole Sodium (Protonix Ec Tab) 40 mg PO DAILY [facility] Sodium Bicarbonate (Sodium Bicarbonate (8.4%) 50 Meq Syringe) 50 meq IVP DAILY JOSE Stop: 09/08/18 22:01 Last Admin: 09/07/18 09:08 Dose: 50 meq Thiamine HCl (Vitamin B1 Inj) 100 mg IV DAILY JOSE Stop: 09/10/18 10:01 Last Admin: 09/07/18 09:05 Dose: 100 mg Vitamin A (Vitamin A & D Oint Ud Foilpak) 0.5 ea TOP Q4 JOSE Last Admin: 09/07/18 11:31 Dose: 0.5 ea - Labs Labs: 09/07/18 05:59 09/07/18 05:59 PT 25.5 SECONDS (9.7-12.2) H 08/31/18 20:08 INR 2.3 08/31/18 20:08 APTT 34 SECONDS (21-34) 08/31/18 12:32 - Constitutional Appears: Well - Head Exam Head Exam: ATRAUMATIC, NORMAL INSPECTION, NORMOCEPHALIC - Eye Exam Eye Exam: EOMI, Normal appearance, PERRL Pupil Exam: NORMAL ACCOMODATION, PERRL - ENT Exam ENT Exam: Mucous Membranes Moist, Normal Exam - Neck Exam Neck Exam: Full ROM, Normal Inspection. absent: Lymphadenopathy - Respiratory Exam Respiratory Exam: Decreased Breath Sounds - Cardiovascular Exam Cardiovascular Exam: REGULAR RHYTHM, +S1, +S2 - GI/Abdominal Exam GI & Abdominal Exam: Soft, Diminished Bowel Sounds - Rectal Exam Rectal Exam: Deferred
--- NOTE | 2018-09-07 15:47 | CP.PCM.PN ---
Subjective - Date & Time of Evaluation Date of Evaluation: 09/07/18 Time of Evaluation: 06:00 - Subjective Subjective: CT chest abd noted afeb NAD IV rx reordered Objective - Vital Signs/Intake and Output Vital Signs (last 24 hours): Temp Pulse Resp BP Pulse Ox 98.4 F 108 H 12 131/83 98 09/07/18 12:00 09/07/18 15:01 09/07/18 15:01 09/07/18 15:00 09/07/18 15:00 Intake and Output: 09/07/18 09/07/18 06:59 18:59 Intake Total 1000 275 Output Total 250 Balance 750 275 - Medications Medications: Current Medications Calcium/Vitamin D (Oyster Shell Calcium/Vitamin D 500 Mg-200 Iu) 1 tab PO BID [facility] Last Admin: 09/07/18 09:06 Dose: 1 tab Epoetin Morales (Procrit) 10,000 unit SC TTS [facility] Last Admin: 09/06/18 09:56 Dose: 10,000 unit Furosemide (Lasix) 40 mg IVP DAILY [facility] Last Admin: 09/07/18 11:30 Dose: 40 mg Meropenem 500 mg/ Sodium (Chloride) 100 mls @ 100 mls/hr IVPB Q12H [facility]; Protocol Last Admin: 09/07/18 04:42 Dose: 100 mls/hr Folic Acid 1 mg/ Sodium (Chloride) 100.2 mls @ 60 mls/hr IV DAILY [facility] Last Admin: 09/07/18 09:17 Dose: 60 mls/hr Metoprolol Tartrate (Lopressor) 2.5 mg IVP BID [facility] Last Admin: 09/07/18 09:26 Dose: 2.5 mg Nystatin (Nystop Topical Powder) 1 applic TOP BID [facility] Stop: 09/15/18 10:01 Last Admin: 09/07/18 09:23 Dose: 1 applic Pantoprazole Sodium (Protonix Ec Tab) 40 mg PO DAILY [facility] Sodium Bicarbonate (Sodium Bicarbonate (8.4%) 50 Meq Syringe) 50 meq IVP DAILY [facility] Stop: 09/08/18 22:01 Last Admin: 09/07/18 09:08 Dose: 50 meq Thiamine HCl (Vitamin B1 Inj) 100 mg IV DAILY [facility] Stop: 09/10/18 10:01 Last Admin: 09/07/18 09:05 Dose: 100 mg Vitamin A (Vitamin A & D Oint Ud Foilpak) 0.5 ea TOP Q4 [facility] Last Admin: 09/07/18 11:31 Dose: 0.5 ea - Labs Labs: 09/07/18 05:59 09/07/18 05:59 PT 25.5 SECONDS (9.7-12.2) H 08/31/18 20:08 INR 2.3 08/31/18 20:08 APTT 34 SECONDS (21-34) 08/31/18 12:32 - Constitutional Appears: Non-toxic, Chronically Ill - Head Exam Head Exam: NORMOCEPHALIC - Eye Exam Eye Exam: absent: Scleral icterus - ENT Exam ENT Exam: Mucous Membranes Dry - Neck Exam Neck Exam: absent: Lymphadenopathy - Respiratory Exam Respiratory Exam: Decreased Breath Sounds - Cardiovascular Exam Cardiovascular Exam: REGULAR RHYTHM - GI/Abdominal Exam GI & Abdominal Exam: Distended - Rectal Exam Rectal Exam: Deferred - Exam Exam: NORMAL INSPECTION - Extremities Exam Extremities Exam: absent: Pedal Edema - Back Exam Back Exam: absent: CVA tenderness (L), CVA tenderness (R) Assessment and Plan (1) Leukocytosis Status: Acute (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
--- NOTE | 2018-09-07 16:08 | CP.PCM.PN ---
Subjective - Date & Time of Evaluation Date of Evaluation: 09/07/18 Time of Evaluation: 16:07 - Subjective Subjective: Nephrology Consultation Note Assessment: stable Acute Kidney Injury (N17.9) likely due to ATN and pre-renal state: recent work up for GN neg HAGMA with ketonemia likely due to ROBIN and ketoacidosis hypovolemic hyponatremia, Hypokalemia, hypocalcemia and hypomagnesemia likely due to GI (due to diarrhoea) and renal loss (was on lasix) with limited oral intake severe hypoalbuminemia with malnutration with anasarca Hypertensive Chronic Kidney Disease (I12.9) Chronic Kidney Disease (N18.9) Stage 3 with 55 mg albuminuria Anemia acute on chronic severe Mitral regurg with infective endocarditis, depression/Anxiety Plan No acute need for dialysis Maintain hemodynamics stable. Avoid hypotension. Patient not on ACEI/ARB due to recent ROBIN Monitor Input/Output, daily weights and renal function with basic metabolic panel started Fe, MVI, and weekly Vit D, OScal D: held as pt unable to take PO c/w bicarb supplements 50 mg IVP daily. consider IV lasix 40 mg 1-2 times/day PRBC as needed. had transfusion 09/02/18.on ESAs supplement lytes as needed IV albumin as needed for low BP. Dietary consult. added thiamine as well. Dose meds/antibiotics for reduced GFR. Avoid fleets enema. Avoid nephrotoxins/NSAIDs/ iodinated contrast (unless needed emergently) Glycemic control Further work up for as per primary team Thanks for allowing me to participate in care of your patient. Will follow patient with you. Please call if any Qs. had d/w team Dr Heriberto Hernandez Office: [phone] reason for consult; ROBIN and electrolytes abnormalities HPI: pt is a 62 F with hx of HTN, depression who was recently admitted to hospital with ROBIN required few session of HD then improved with cr 1.2, also with infective endocarditis with severe MR but pt refused surgery and decided only for IV antibiotics treatments came as was feeling weak, found to have severe electrolytes depletion and renal consult for ROBIN. pt feels nervous. reports decreased oral intake and c.o loose stool besides that not providing much hx nor recent Iv contrast. noted low BP ROS: she is c/o lower back pain due to lying on it. denies SOB Physical Examination: General Appearance: comfortable, in no acute respiratory distress, ill appearing and debilitated Vitals reviewed and noted as below Head; Atraumatic, normocephalic ENT: WNL EYES: Pupils are equal, round and reactive to light accommodation. Eye muscles and extraocular movement intact. Sclera is anicteric. Neck; supple no lymphadenopathy, no thyromegaly or bruit Lungs: Normal respiratory rate/effort. Breath sounds b/l decreased at bases Heart: Increased rate. s1s2 normal. No rub or gallop. SM + at apex/LSB Extremities: 2+ edema with anasarca. No varicose veins Neurological: Patient is alert awake oriented follow commands Skin: Warm and dry. Normal turgor. Palpitation: Normal elasticity for age. skin echymoses + rash in lower extremity with blisetring and desquamation changes upper ext Abdomen: Abdomen is soft. Bowel sounds +. There is no abdominal tenderness, no guarding/rigidity no organomegaly Psych: lack insight. anxious MSK: no joint tenderness or swelling. Digits and nails normal, no deformity : kidney or bladder not palpable access: none Labs/imaging reviewed. Past medical history, past surgical history, family history, social history, allergy reviewed and noted as below Family hx: no hx of CKD. Rest non-contributory work up: Hep B/C/HIV neg renal imaging: unremarkable A1c 5.5% UA no protein 1+ blood LINDSEY/ANCA neg, K/L ratio WNLTSAT 9% ferritin 221 Vit D <12.8 PTH 268 FENa 0.3% TTKG 15 Objective - Vital Signs/Intake and Output Vital Signs (last 24 hours): Temp Pulse Resp BP Pulse Ox 98.4 F 108 H 12 131/83 98 09/07/18 12:00 09/07/18 15:01 09/07/18 15:01 09/07/18 15:00 09/07/18 15:00 Intake and Output: 09/07/18 09/07/18 06:59 18:59 Intake Total 1000 275 Output Total 250 Balance 750 275 - Medications Medications: Current Medications Calcium/Vitamin D (Oyster Shell Calcium/Vitamin D 500 Mg-200 Iu) 1 tab PO BID [facility] Last Admin: 09/07/18 09:06 Dose: 1 tab Epoetin Morales (Procrit) 10,000 unit SC TTS [facility] Last Admin: 09/06/18 09:56 Dose: 10,000 unit Furosemide (Lasix) 40 mg IVP DAILY [facility] Last Admin: 09/07/18 11:30 Dose: 40 mg Meropenem 500 mg/ Sodium (Chloride) 100 mls @ 100 mls/hr IVPB Q12H [facility]; Protocol Last Admin: 09/07/18 04:42 Dose: 100 mls/hr Folic Acid 1 mg/ Sodium (Chloride) 100.2 mls @ 60 mls/hr IV DAILY [facility] Last Admin: 09/07/18 09:17 Dose: 60 mls/hr Metoprolol Tartrate (Lopressor) 2.5 mg IVP BID [facility] [place] Last Admin: 09/07/18 09:26 Dose: 2.5 mg Nystatin (Nystop Topical Powder) 1 applic TOP BID [facility] Stop: 09/15/18 10:01 Last Admin: 09/07/18 09:23 Dose: 1 applic Pantoprazole Sodium (Protonix Ec Tab) 40 mg PO DAILY [facility] Sodium Bicarbonate (Sodium Bicarbonate (8.4%) 50 Meq Syringe) 50 meq IVP DAILY [facility] Stop: 09/08/18 22:01 Last Admin: 09/07/18 09:08 Dose: 50 meq Thiamine HCl (Vitamin B1 Inj) 100 mg IV DAILY [facility] Stop: 09/10/18 10:01 Last Admin: 09/07/18 09:05 Dose: 100 mg Vitamin A (Vitamin A & D Oint Ud Foilpak) 0.5 ea TOP Q4 [facility] Last Admin: 09/07/18 11:31 Dose: 0.5 ea - Labs Labs: 09/07/18 05:59 09/07/18 05:59 PT 25.5 SECONDS (9.7-12.2) H 08/31/18 20:08 INR 2.3 08/31/18 20:08 APTT 34 SECONDS (21-34) 08/31/18 12:32
--- NOTE | 2018-09-07 22:29 | CP.PCM.PN ---
Subjective - Date & Time of Evaluation Date of Evaluation: 09/07/18 Time of Evaluation: 19:00 - Subjective Subjective: Has some back pain. Objective - Vital Signs/Intake and Output Vital Signs (last 24 hours): Temp Pulse Resp BP Pulse Ox 98.1 F 115 H 16 126/71 92 L 09/07/18 20:00 09/07/18 21:00 09/07/18 21:00 09/07/18 21:01 09/07/18 21:00 Intake and Output: 09/07/18 09/08/18 18:59 06:59 Intake Total 325 0 Output Total 355 Balance -30 0 - Medications Medications: Current Medications Calcium/Vitamin D (Oyster Shell Calcium/Vitamin D 500 Mg-200 Iu) 1 tab PO BID [facility] Last Admin: 09/07/18 17:08 Dose: 1 tab Epoetin Morales (Procrit) 10,000 unit SC TTS [facility] Last Admin: 09/06/18 09:56 Dose: 10,000 unit Furosemide (Lasix) 40 mg IVP DAILY [facility] Last Admin: 09/07/18 11:30 Dose: 40 mg Meropenem 500 mg/ Sodium (Chloride) 100 mls @ 100 mls/hr IVPB Q12H [facility]; Protocol Last Admin: 09/07/18 17:01 Dose: 100 mls/hr Folic Acid 1 mg/ Sodium (Chloride) 100.2 mls @ 60 mls/hr IV DAILY [facility] Last Admin: 09/07/18 09:17 Dose: 60 mls/hr Metoprolol Tartrate (Lopressor) 2.5 mg IVP BID [facility] Last Admin: 09/07/18 17:02 Dose: 2.5 mg Nystatin (Nystop Topical Powder) 1 applic TOP BID [facility] Stop: 09/15/18 10:01 Last Admin: 09/07/18 17:06 Dose: 1 applic Pantoprazole Sodium (Protonix Ec Tab) 40 mg PO DAILY [facility] Sodium Bicarbonate (Sodium Bicarbonate (8.4%) 50 Meq Syringe) 50 meq IVP DAILY [facility] Stop: 09/08/18 22:01 Last Admin: 09/07/18 09:08 Dose: 50 meq Thiamine HCl (Vitamin B1 Inj) 100 mg IV DAILY [facility] Stop: 09/10/18 10:01 Last Admin: 09/07/18 09:05 Dose: 100 mg Vitamin A (Vitamin A & D Oint Ud Foilpak) 0.5 ea TOP Q4 [facility] Last Admin: 09/07/18 20:49 Dose: 0.5 ea - Labs Labs: 09/07/18 05:59 09/07/18 05:59 PT 25.5 SECONDS (9.7-12.2) H 08/31/18 20:08 INR 2.3 08/31/18 20:08 APTT 34 SECONDS (21-34) 08/31/18 12:32 - Head Exam Head Exam: ATRAUMATIC - Eye Exam Eye Exam: Normal appearance - ENT Exam ENT Exam: Mucous Membranes Dry - Respiratory Exam Respiratory Exam: NORMAL BREATHING PATTERN - Cardiovascular Exam Cardiovascular Exam: +S1, +S2 - GI/Abdominal Exam GI & Abdominal Exam: Normal Bowel Sounds Assessment and Plan (1) Anemia Assessment & Plan: prior work up consistent with anemia of chronic disease anemia of CKD - KESHAWN per renal transfusion support PRN no iron, b12, folate deficiency Status: Acute (2) Thrombocytopenia Assessment & Plan: mild ? medication related Status: Acute
[2018-09-08] MEDS: Vitamins A & D Oint UD Foilpak TOP SCH ×6 (00:55→20:35)
[2018-09-08] MEDS: Meropenem 500 MG in Sodium Chloride 0.9% 100 ML IVPB SCH ×2 (04:09→17:35)
[2018-09-08 05:44] LABS: BASO # 0.2 K/uL (0.0-0.2); BASO % 1.5 % (0.0-2.0); EOS % 0.1 % (0.0-4.0); LYMPH # 2.5 K/uL (1.0-4.3); MEAN CORPUSCULAR HEMOGLOBIN 31.2 pg (27.0-31.0); MEAN CORPUSCULAR HGB CONC 33.2 g/dL (33.0-37.0); MEAN PLATELET VOLUME 10.5 fL (7.2-11.7); MONO # 0.5 K/uL (0.0-0.8); MONO % 5.1 % (0.0-10.0); NEUT # 7.2 K/uL (1.8-7.0); NEUT % 69.3 % (50.0-75.0); NRBC % 1.4 % (0.0-2.0); RBC 2.88 Mil/uL (3.80-5.20); WHITE BLOOD COUNT 10.4 K/uL (4.8-10.8)
[2018-09-08 06:13] LABS: ALB/GLOB RATIO 0.9 (1.0-2.1); ALBUMIN 2.3 g/dL (3.5-5.0); CALCIUM 7.9 mg/dl (8.6-10.4)
[2018-09-08] MEDS: Sodium Bicarbonate (8.4%) 50 Meq Syringe IVP SCH (09:12)
[2018-09-08] MEDS: Thiamine 100 mg/ml Inj IV SCH (09:13)
[2018-09-08] MEDS: Pantoprazole 40 mg EC Tab PO SCH (09:13)
[2018-09-08] MEDS: Metoprolol 1 mg/ml Inj IVP SCH ×2 (09:13→17:33)
[2018-09-08] MEDS: Calcium-Vit D 500 mg-200 Units Tab UD PO SCH ×2 (09:17→17:32)
[2018-09-08] MEDS: Epoetin Alfa 10,000 unit/ml Dialysis SC SCH (09:18)
[2018-09-08] MEDS: Potassium Chloride 20 mEq/15 ml LIQ UD PO SCH ×2 (10:17→13:55)
--- NOTE | 2018-09-08 11:08 | CP.PCM.PN ---
Subjective - Date & Time of Evaluation Date of Evaluation: 09/08/18 Time of Evaluation: 11:06 - Subjective Subjective: Nephrology Consultation Note Assessment: stable Acute Kidney Injury (N17.9) likely due to ATN and pre-renal state: recent work up for GN neg HAGMA with ketonemia likely due to ROBIN and ketoacidosis hypovolemic hyponatremia, Hypokalemia, hypocalcemia and hypomagnesemia likely due to GI (due to diarrhoea) and renal loss (was on lasix) with limited oral intake severe hypoalbuminemia with malnutration with anasarca Hypertensive Chronic Kidney Disease (I12.9) Chronic Kidney Disease (N18.9) Stage 3 with 55 mg albuminuria Anemia acute on chronic severe Mitral regurg with infective endocarditis, depression/Anxiety Plan No acute need for dialysis Maintain hemodynamics stable. Avoid hypotension. Patient not on ACEI/ARB due to recent ROBIN Monitor Input/Output, daily weights and renal function with basic metabolic panel started Fe, MVI, and weekly Vit D, OScal D: resume as pt now able to take PO c/w bicarb supplements daily.continue with lasix PRBC as needed. had transfusion 09/02/18. on ESAs as epogen supplement lytes as needed IV albumin as needed for low BP. Dietary consult. continue with thiamine Dose meds/antibiotics for reduced GFR. Avoid fleets enema. Avoid nephrotoxins/NSAIDs/ iodinated contrast (unless needed emergently) Glycemic control Further work up for as per primary team Thanks for allowing me to participate in care of your patient. Will follow patient with you. Please call if any Qs. had d/w team Dr Heriberto Hernandez Office: [phone] reason for consult; ROBIN and electrolytes abnormalities HPI: pt is a 62 F with hx of HTN, depression who was recently admitted to hospital with ROBIN required few session of HD then improved with cr 1.2, also with infective endocarditis with severe MR but pt refused surgery and decided only for IV antibiotics treatments came as was feeling weak, found to have severe electrolytes depletion and renal consult for ROBIN. pt feels nervous. reports decreased oral intake and c.o loose stool besides that not providing much hx nor recent Iv contrast. noted low BP ROS: denies SOB, chest pain. Physical Examination: General Appearance: comfortable, in no acute respiratory distress, ill appearing and debilitated Vitals reviewed and noted as below Head; Atraumatic, normocephalic ENT: WNL EYES: Pupils are equal, round and reactive to light accommodation. Eye muscles and extraocular movement intact. Sclera is anicteric. Neck; supple no lymphadenopathy, no thyromegaly or bruit Lungs: Normal respiratory rate/effort. Breath sounds b/l decreased at bases Heart: normal rate. s1s2 normal. No rub or gallop. SM + at apex/LSB Extremities: 2+ edema with anasarca. No varicose veins Neurological: Patient is alert awake oriented follow commands Skin: Warm and dry. Normal turgor. Palpitation: Normal elasticity for age. skin echymoses + rash in lower extremity with blisetring and desquamation changes upper ext Abdomen: Abdomen is soft. Bowel sounds +. There is no abdominal tenderness, no guarding/rigidity no organomegaly Psych: lack insight. anxious MSK: no joint tenderness or swelling. Digits and nails normal, no deformity : kidney or bladder not palpable Labs/imaging reviewed. Past medical history, past surgical history, family history, social history, allergy reviewed and noted as below Family hx: no hx of CKD. Rest non-contributory work up: Hep B/C/HIV neg renal imaging: unremarkable A1c 5.5% UA no protein 1+ blood LINDSEY/ANCA neg, K/L ratio WNLTSAT 9% ferritin 221 Vit D <12.8 PTH 268 FENa 0.3% TTKG 15 Objective - Vital Signs/Intake and Output Vital Signs (last 24 hours): Temp Pulse Resp BP Pulse Ox 97.6 F 95 H 18 134/86 98 09/08/18 04:00 09/08/18 07:55 09/08/18 07:55 09/08/18 09:14 09/08/18 07:55 Intake and Output: 09/08/18 09/08/18 06:59 18:59 Intake Total 340 120 Output Total 170 Balance 170 120 - Medications Medications: Current Medications Calcium/Vitamin D (Oyster Shell Calcium/Vitamin D 500 Mg-200 Iu) 1 tab PO BID [facility] Last Admin: 09/08/18 09:17 Dose: 1 tab Epoetin Morales (Procrit) 10,000 unit SC TTS [facility] Last Admin: 09/08/18 09:18 Dose: 10,000 unit Furosemide (Lasix) 40 mg IVP DAILY [facility] Last Admin: 09/08/18 09:14 Dose: 40 mg Meropenem 500 mg/ Sodium (Chloride) 100 mls @ 100 mls/hr IVPB Q12H [facility]; Protocol Last Admin: 09/08/18 04:09 Dose: 100 mls/hr Folic Acid 1 mg/ Sodium (Chloride) 100.2 mls @ 60 mls/hr IV DAILY [facility] Last Admin: 09/08/18 09:14 Dose: 60 mls/hr Metoprolol Tartrate (Lopressor) 2.5 mg IVP BID [facility] Last Admin: 09/08/18 09:13 Dose: 2.5 mg Nystatin (Nystop Topical Powder) 1 applic TOP BID [facility] Stop: 09/15/18 10:01 Last Admin: 09/08/18 09:15 Dose: 1 applic Pantoprazole Sodium (Protonix Ec Tab) 40 mg PO DAILY [facility] Last Admin: 09/08/18 09:13 Dose: 40 mg Potassium Chloride (Potassium Chloride Oral Soln) 40 meq PO Q6 [facility] Stop: 09/08/18 12:01 Last Admin: 09/08/18 10:17 Dose: 40 meq Sodium Bicarbonate (Sodium Bicarbonate (8.4%) 50 Meq Syringe) 50 meq IVP DAILY [facility] Stop: 09/08/18 22:01 Last Admin: 09/08/18 09:12 Dose: 50 meq Thiamine HCl (Vitamin B1 Inj) 100 mg IV DAILY [facility] Stop: 09/10/18 10:01 Last Admin: 09/08/18 09:13 Dose: 100 mg Vitamin A (Vitamin A & D Oint Ud Foilpak) 0.5 ea TOP Q4 [facility] Last Admin: 09/08/18 08:12 Dose: 0.5 ea - Labs Labs: 09/08/18 05:38 09/08/18 05:38 PT 25.5 SECONDS (9.7-12.2) H 08/31/18 20:08 INR 2.3 08/31/18 20:08 APTT 34 SECONDS (21-34) 08/31/18 12:32
[2018-09-08] MEDS: Ergocalciferol 50,000 Intl Units Cap PO SCH (13:53)
--- NOTE | 2018-09-08 14:49 | CP.PCM.PN ---
Subjective - Date & Time of Evaluation Date of Evaluation: 09/08/18 Time of Evaluation: 07:00 - Subjective Subjective: events noted IV rx in progress Objective - Vital Signs/Intake and Output Vital Signs (last 24 hours): Temp Pulse Resp BP Pulse Ox 98.4 F 113 H 18 132/89 97 09/08/18 12:00 09/08/18 12:00 09/08/18 12:00 09/08/18 12:00 09/08/18 12:00 Intake and Output: 09/08/18 09/08/18 06:59 18:59 Intake Total 340 120 Output Total 170 Balance 170 120 - Medications Medications: Current Medications Calcium/Vitamin D (Oyster Shell Calcium/Vitamin D 500 Mg-200 Iu) 1 tab PO BID [facility] Last Admin: 09/08/18 09:17 Dose: 1 tab Epoetin Morales (Procrit) 10,000 unit SC TTS [facility] Last Admin: 09/08/18 09:18 Dose: 10,000 unit Ergocalciferol (Drisdol 50,000 Intl Units Cap) 1 cap PO Q7D [facility] Last Admin: 09/08/18 13:53 Dose: 1 cap Ferrous Gluconate (Fergon) 324 mg PO TID [facility] Last Admin: 09/08/18 13:00 Dose: 324 mg Furosemide (Lasix) 40 mg PO DAILY [facility] Meropenem 500 mg/ Sodium (Chloride) 100 mls @ 100 mls/hr IVPB Q12H [facility]; Protocol Last Admin: 09/08/18 04:09 Dose: 100 mls/hr Folic Acid 1 mg/ Sodium (Chloride) 100.2 mls @ 60 mls/hr IV DAILY [facility] Last Admin: 09/08/18 09:14 Dose: 60 mls/hr Metoprolol Tartrate (Lopressor) 2.5 mg IVP BID [facility] Last Admin: 09/08/18 09:13 Dose: 2.5 mg Nystatin (Nystop Topical Powder) 1 applic TOP BID [facility] Stop: 09/15/18 10:01 Last Admin: 09/08/18 09:15 Dose: 1 applic Pantoprazole Sodium (Protonix Ec Tab) 40 mg PO DAILY [facility] Last Admin: 09/08/18 09:13 Dose: 40 mg Sodium Bicarbonate (Sodium Bicarbonate Tab) 1,300 mg PO BID [facility] Thiamine HCl (Vitamin B1 Tab) 100 mg PO DAILY [facility] Vitamin A (Vitamin A & D Oint Ud Foilpak) 0.5 ea TOP Q4 [facility] Last Admin: 09/08/18 12:00 Dose: 0.5 ea Vitamin B Complex/Vit C/Folic Acid (Nephro-Fortino) 1 tab PO 0800 [facility] - Labs Labs: 09/08/18 05:38 09/08/18 05:38 PT 25.5 SECONDS (9.7-12.2) H 08/31/18 20:08 INR 2.3 08/31/18 20:08 APTT 34 SECONDS (21-34) 08/31/18 12:32 - Constitutional Appears: Non-toxic, Chronically Ill - Head Exam Head Exam: NORMOCEPHALIC - Eye Exam Eye Exam: absent: Scleral icterus - ENT Exam ENT Exam: Mucous Membranes Dry - Neck Exam Neck Exam: absent: Lymphadenopathy - Respiratory Exam Respiratory Exam: Decreased Breath Sounds - Cardiovascular Exam Cardiovascular Exam: REGULAR RHYTHM - GI/Abdominal Exam GI & Abdominal Exam: Distended, Soft - Rectal Exam Rectal Exam: Deferred - Exam Exam: NORMAL INSPECTION Assessment and Plan (1) Leukocytosis Status: Acute (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 - Assessment and Plan (Free Text) Assessment: needs 13 more days iv rx for endocarditis
--- NOTE | 2018-09-08 16:14 | CP.PCM.PN ---
Subjective - Date & Time of Evaluation Date of Evaluation: 09/08/18 Time of Evaluation: 14:00 - Subjective Subjective: Feels hungry Objective - Vital Signs/Intake and Output Vital Signs (last 24 hours): Temp Pulse Resp BP Pulse Ox 98.4 F 113 H 18 132/89 97 09/08/18 12:00 09/08/18 12:00 09/08/18 12:00 09/08/18 12:00 09/08/18 12:00 Intake and Output: 09/08/18 09/08/18 06:59 18:59 Intake Total 340 120 Output Total 170 Balance 170 120 - Medications Medications: Current Medications Calcium/Vitamin D (Oyster Shell Calcium/Vitamin D 500 Mg-200 Iu) 1 tab PO BID [facility] Last Admin: 09/08/18 09:17 Dose: 1 tab Epoetin Morales (Procrit) 10,000 unit SC TTS [facility] Last Admin: 09/08/18 09:18 Dose: 10,000 unit Ergocalciferol (Drisdol 50,000 Intl Units Cap) 1 cap PO Q7D [facility] Last Admin: 09/08/18 13:53 Dose: 1 cap Ferrous Gluconate (Fergon) 324 mg PO TID [facility] Last Admin: 09/08/18 13:00 Dose: 324 mg Furosemide (Lasix) 40 mg PO DAILY [facility] Meropenem 500 mg/ Sodium (Chloride) 100 mls @ 100 mls/hr IVPB Q12H [facility]; Protocol Last Admin: 09/08/18 04:09 Dose: 100 mls/hr Folic Acid 1 mg/ Sodium (Chloride) 100.2 mls @ 60 mls/hr IV DAILY [facility] Last Admin: 09/08/18 09:14 Dose: 60 mls/hr Metoprolol Tartrate (Lopressor) 2.5 mg IVP BID [facility] Last Admin: 09/08/18 09:13 Dose: 2.5 mg Nystatin (Nystop Topical Powder) 0 gm TOP TID [facility] Pantoprazole Sodium (Protonix Ec Tab) 40 mg PO DAILY [facility] Last Admin: 09/08/18 09:13 Dose: 40 mg Sodium Bicarbonate (Sodium Bicarbonate Tab) 1,300 mg PO BID [facility] Thiamine HCl (Vitamin B1 Tab) 100 mg PO DAILY [facility] Vitamin A (Vitamin A & D Oint Ud Foilpak) 0.5 ea TOP Q4 [facility] Last Admin: 09/08/18 12:00 Dose: 0.5 ea Vitamin B Complex/Vit C/Folic Acid (Nephro-Fortino) 1 tab PO 0800 [facility] - Labs Labs: 09/08/18 05:38 09/08/18 05:38 PT 25.5 SECONDS (9.7-12.2) H 08/31/18 20:08 INR 2.3 08/31/18 20:08 APTT 34 SECONDS (21-34) 08/31/18 12:32 - Head Exam Head Exam: ATRAUMATIC - Eye Exam Eye Exam: Normal appearance - ENT Exam ENT Exam: Mucous Membranes Dry - Respiratory Exam Respiratory Exam: NORMAL BREATHING PATTERN - Cardiovascular Exam Cardiovascular Exam: +S1, +S2 - GI/Abdominal Exam GI & Abdominal Exam: Normal Bowel Sounds Assessment and Plan (1) Anemia Assessment & Plan: prior work up consistent with anemia of chronic disease anemia of CKD - KESHAWN per renal transfusion support PRN no iron, b12, folate deficiency Status: Acute (2) Thrombocytopenia Assessment & Plan: mild ? medication related Status: Acute
[2018-09-08] MEDS: Nystatin 100,000 Units/gm Topical Pow(15 gm) TOP SCH (17:29)
[2018-09-08] MEDS ORDERED: Potassium Chloride 20 mEq ER Tab PO SCH (18:30)
--- NOTE | 2018-09-08 21:02 | CP.PCM.PN ---
Subjective - Date & Time of Evaluation Date of Evaluation: 09/08/18 Time of Evaluation: 11:00 - Subjective Subjective: clinically same Objective - Vital Signs/Intake and Output Vital Signs (last 24 hours): Temp Pulse Resp BP Pulse Ox 98.6 F 117 H 19 135/84 100 09/08/18 16:00 09/08/18 16:00 09/08/18 16:00 09/08/18 16:00 09/08/18 16:00 Intake and Output: 09/08/18 09/09/18 18:59 06:59 Intake Total 370 Output Total 275 Balance 95 - Medications Medications: Current Medications Calcium/Vitamin D (Oyster Shell Calcium/Vitamin D 500 Mg-200 Iu) 1 tab PO BID [facility] Last Admin: 09/08/18 17:32 Dose: 1 tab Epoetin Morales (Procrit) 10,000 unit SC TTS [facility] Last Admin: 09/08/18 09:18 Dose: 10,000 unit Ergocalciferol (Drisdol 50,000 Intl Units Cap) 1 cap PO Q7D [facility] Last Admin: 09/08/18 13:53 Dose: 1 cap Ferrous Gluconate (Fergon) 324 mg PO TID [facility] Last Admin: 09/08/18 17:31 Dose: 324 mg Furosemide (Lasix) 40 mg PO DAILY [facility] Meropenem 500 mg/ Sodium (Chloride) 100 mls @ 100 mls/hr IVPB Q12H [facility]; Protocol Last Admin: 09/08/18 17:35 Dose: 100 mls/hr Folic Acid 1 mg/ Sodium (Chloride) 100.2 mls @ 60 mls/hr IV DAILY [facility] Last Admin: 09/08/18 09:14 Dose: 60 mls/hr Metoprolol Tartrate (Lopressor) 2.5 mg IVP BID [facility] Last Admin: 09/08/18 17:33 Dose: 2.5 mg Nystatin (Nystop Topical Powder) 0 gm TOP TID [facility] Last Admin: 09/08/18 17:29 Dose: 1 apful Pantoprazole Sodium (Protonix Ec Tab) 40 mg PO DAILY [facility] Last Admin: 09/08/18 09:13 Dose: 40 mg Sodium Bicarbonate (Sodium Bicarbonate Tab) 1,300 mg PO BID [facility] Thiamine HCl (Vitamin B1 Tab) 100 mg PO DAILY [facility] Vitamin A (Vitamin A & D Oint Ud Foilpak) 0.5 ea TOP Q4 [facility] Last Admin: 09/08/18 20:35 Dose: 0.5 ea Vitamin B Complex/Vit C/Folic Acid (Nephro-Fortino) 1 tab PO 0800 [facility] - Labs Labs: 09/08/18 05:38 09/08/18 05:38 PT 25.5 SECONDS (9.7-12.2) H 08/31/18 20:08 INR 2.3 08/31/18 20:08 APTT 34 SECONDS (21-34) 08/31/18 12:32
--- NOTE | 2018-09-08 22:30 | CP.PCM.PN ---
Subjective - Date & Time of Evaluation Date of Evaluation: 09/08/18 Time of Evaluation: 22:27 - Subjective Subjective: No bleeding or melena Objective - Vital Signs/Intake and Output Vital Signs (last 24 hours): Temp Pulse Resp BP Pulse Ox 98.7 F 103 H 15 123/65 97 09/08/18 20:00 09/08/18 20:00 09/08/18 20:00 09/08/18 20:00 09/08/18 20:00 Intake and Output: 09/08/18 09/09/18 18:59 06:59 Intake Total 370 Output Total 275 Balance 95 - Medications Medications: Current Medications Calcium/Vitamin D (Oyster Shell Calcium/Vitamin D 500 Mg-200 Iu) 1 tab PO BID [facility] Last Admin: 09/08/18 17:32 Dose: 1 tab Epoetin Morales (Procrit) 10,000 unit SC TTS [facility] Last Admin: 09/08/18 09:18 Dose: 10,000 unit Ergocalciferol (Drisdol 50,000 Intl Units Cap) 1 cap PO Q7D [facility] Last Admin: 09/08/18 13:53 Dose: 1 cap Ferrous Gluconate (Fergon) 324 mg PO TID [facility] Last Admin: 09/08/18 17:31 Dose: 324 mg Furosemide (Lasix) 40 mg PO DAILY [facility] Meropenem 500 mg/ Sodium (Chloride) 100 mls @ 100 mls/hr IVPB Q12H [facility]; Protocol Last Admin: 09/08/18 17:35 Dose: 100 mls/hr Folic Acid 1 mg/ Sodium (Chloride) 100.2 mls @ 60 mls/hr IV DAILY [facility] Last Admin: 09/08/18 09:14 Dose: 60 mls/hr Metoprolol Tartrate (Lopressor) 2.5 mg IVP BID [facility] Last Admin: 09/08/18 17:33 Dose: 2.5 mg Nystatin (Nystop Topical Powder) 0 gm TOP TID [facility] Last Admin: 09/08/18 17:29 Dose: 1 apful Pantoprazole Sodium (Protonix Ec Tab) 40 mg PO DAILY [facility] Last Admin: 09/08/18 09:13 Dose: 40 mg Sodium Bicarbonate (Sodium Bicarbonate Tab) 1,300 mg PO BID [facility] Thiamine HCl (Vitamin B1 Tab) 100 mg PO DAILY [facility] Vitamin A (Vitamin A & D Oint Ud Foilpak) 0.5 ea TOP Q4 [facility] Last Admin: 09/08/18 20:35 Dose: 0.5 ea Vitamin B Complex/Vit C/Folic Acid (Nephro-Fortino) 1 tab PO 0800 [facility] - Labs Labs: 09/08/18 05:38 09/08/18 05:38 PT 25.5 SECONDS (9.7-12.2) H 08/31/18 20:08 INR 2.3 08/31/18 20:08 APTT 34 SECONDS (21-34) 08/31/18 12:32 - Constitutional Appears: No Acute Distress - Head Exam Head Exam: ATRAUMATIC, NORMOCEPHALIC - Eye Exam Eye Exam: EOMI - Respiratory Exam Respiratory Exam: Rhonchi, NORMAL BREATHING PATTERN - Cardiovascular Exam Cardiovascular Exam: REGULAR RHYTHM - GI/Abdominal Exam GI & Abdominal Exam: Soft, Hyperactive Bowel Sounds, Normal Bowel Sounds Additional comments: obese, non-tender - Extremities Exam Extremities Exam: Joint Swelling, Pedal Edema Assessment and Plan (1) Anemia in chronic kidney disease Assessment & Plan: Monitor for evidence of bleeding. Status: Acute (2) Rectal bleeding Assessment & Plan: No overt bleeding. Elective work up when stable or urgent in event of overt bleeding Status: Acute
[2018-09-09] MEDS: Vitamins A & D Oint UD Foilpak TOP SCH ×6 (00:32→20:00)
[2018-09-09] MEDS: Meropenem 500 MG in Sodium Chloride 0.9% 100 ML IVPB SCH ×2 (04:44→16:26)
[2018-09-09 07:17] LABS: BASO # 0.1 K/uL (0.0-0.2); BASO % 0.7 % (0.0-2.0); EOS % 0.2 % (0.0-4.0); HEMOGLOBIN 8.5 g/dL (11.0-16.0); LYMPH # 2.1 K/uL (1.0-4.3); LYMPH % 26.2 % (20.0-40.0); MEAN CELL VOLUME 94.6 fL (81.0-99.0); MEAN CORPUSCULAR HEMOGLOBIN 31.5 pg (27.0-31.0); MEAN CORPUSCULAR HGB CONC 33.3 g/dL (33.0-37.0); MEAN PLATELET VOLUME 10.6 fL (7.2-11.7); MONO # 0.4 K/uL (0.0-0.8); MONO % 5.4 % (0.0-10.0); NEUT # 5.4 K/uL (1.8-7.0); NEUT % 67.5 % (50.0-75.0); NRBC % 0.6 % (0.0-2.0); RBC 2.68 Mil/uL (3.80-5.20)
[2018-09-09 07:39] LABS: ALB/GLOB RATIO 0.8 (1.0-2.1); ALBUMIN 2.1 g/dL (3.5-5.0); CALCIUM 7.7 mg/dl (8.6-10.4)
[2018-09-09] MEDS: Multivitamin Vitamin B Complex (Nephro-Vite) Tab PO SCH (08:30)
[2018-09-09] MEDS: Metoprolol 1 mg/ml Inj IVP SCH (10:26)
[2018-09-09] MEDS: Calcium-Vit D 500 mg-200 Units Tab UD PO SCH ×2 (10:28→17:16)
[2018-09-09] MEDS: Pantoprazole 40 mg EC Tab PO SCH (10:30)
[2018-09-09] MEDS: Nystatin 100,000 Units/gm Topical Pow(15 gm) TOP SCH ×3 (10:34→17:02)
[2018-09-09] MEDS ORDERED: Potassium Chloride 20 mEq/15 ml LIQ UD PO ONE (12:15)
[2018-09-09] MEDS: Magnesium Sulfate 1 gm in D5W 1 GM/100 ML BAG IVPB SCH ×2 (12:59→13:00)
[2018-09-09] MEDS ORDERED: Potassium Chloride 20 mEq ER Tab PO ONE (13:00)
--- NOTE | 2018-09-09 15:07 | CP.PCM.PN ---
Subjective - Date & Time of Evaluation Date of Evaluation: 09/09/18 Time of Evaluation: 15:07 - Subjective Subjective: Nephrology Consultation Note Assessment: stable Acute Kidney Injury (N17.9) likely due to ATN and pre-renal state: recent work up for GN neg HAGMA with ketonemia likely due to ROBIN and ketoacidosis hypovolemic hyponatremia, Hypokalemia, hypocalcemia and hypomagnesemia likely due to GI (due to diarrhoea) and renal loss (was on lasix) with limited oral intake severe hypoalbuminemia with malnutration with anasarca Hypertensive Chronic Kidney Disease (I12.9) Chronic Kidney Disease (N18.9) Stage 3 with 55 mg albuminuria Anemia acute on chronic severe Mitral regurg with infective endocarditis, depression/Anxiety Plan No acute need for dialysis Maintain hemodynamics stable. Avoid hypotension. Patient not on ACEI/ARB due to recent ROIBN Monitor Input/Output, daily weights and renal function with basic metabolic panel started Fe, MVI, and weekly Vit D, OScal D: resume as pt now able to take PO c/w bicarb supplements daily.continue with lasix 40 bid PRBC as needed. had transfusion 09/02/18. on ESAs as epogen supplement lytes as needed IV albumin as needed for low BP. Dietary consult. continue with thiamine Dose meds/antibiotics for reduced GFR. Avoid fleets enema. Avoid nephrotoxins/NSAIDs/ iodinated contrast (unless needed emergently) Glycemic control Further work up for as per primary team Thanks for allowing me to participate in care of your patient. Will follow patient with you. Please call if any Qs. had d/w team Dr Heriberto Hernandez Office: [phone] reason for consult; ROBIN and electrolytes abnormalities HPI: pt is a 62 F with hx of HTN, depression who was recently admitted to hospital with ROBIN required few session of HD then improved with cr 1.2, also with infective endocarditis with severe MR but pt refused surgery and decided only for IV antibiotics treatments came as was feeling weak, found to have severe electrolytes depletion and renal consult for RBOIN. pt feels nervous. reports decreased oral intake and c.o loose stool besides that not providing much hx nor recent Iv contrast. noted low BP ROS: denies SOB, chest pain. wants to drink water Physical Examination: General Appearance: comfortable, in no acute respiratory distress, ill appearing and debilitated Vitals reviewed and noted as below Head; Atraumatic, normocephalic ENT: WNL EYES: Pupils are equal, round and reactive to light accommodation. Eye muscles and extraocular movement intact. Sclera is anicteric. Neck; supple no lymphadenopathy, no thyromegaly or bruit Lungs: Normal respiratory rate/effort. Breath sounds b/l decreased at bases Heart: normal rate. s1s2 normal. No rub or gallop. SM + at apex/LSB Extremities: 3+ edema with anasarca. No varicose veins Neurological: Patient is alert awake oriented follow commands Skin: Warm and dry. Normal turgor. Palpitation: Normal elasticity for age. skin echymoses + rash in lower extremity with blisetring and desquamation changes upper ext Abdomen: Abdomen is soft. Bowel sounds +. There is no abdominal tenderness, no guarding/rigidity no organomegaly Psych: lack insight. anxious MSK: no joint tenderness or swelling. Digits and nails normal, no deformity : kidney or bladder not palpable Labs/imaging reviewed. Past medical history, past surgical history, family history, social history, allergy reviewed and noted as below Family hx: no hx of CKD. Rest non-contributory work up: Hep B/C/HIV neg renal imaging: unremarkable A1c 5.5% UA no protein 1+ blood LINDSEY/ANCA neg, K/L ratio WNLTSAT 9% ferritin 221 Vit D <12.8 PTH 268 FENa 0.3% TTKG 15 Objective - Vital Signs/Intake and Output Vital Signs (last 24 hours): Temp Pulse Resp BP Pulse Ox 98.7 F 118 H 20 126/87 100 09/09/18 12:00 09/09/18 12:00 09/09/18 12:00 09/09/18 13:01 09/09/18 12:00 Intake and Output: 09/09/18 09/09/18 06:59 18:59 Intake Total 580 Output Total 200 Balance 380 - Medications Medications: Current Medications Calcium/Vitamin D (Oyster Shell Calcium/Vitamin D 500 Mg-200 Iu) 1 tab PO BID [facility] Last Admin: 09/09/18 10:28 Dose: 1 tab Epoetin Morales (Procrit) 10,000 unit SC TTS [facility] Last Admin: 11/15/18 09:18 Dose: 10,000 unit Ergocalciferol (Drisdol 50,000 Intl Units Cap) 1 cap PO Q7D [facility] Last Admin: 09/08/18 13:53 Dose: 1 cap Ferrous Gluconate (Fergon) 324 mg PO TID [facility] Last Admin: 09/09/18 13:02 Dose: 324 mg Furosemide (Lasix) 40 mg PO DAILY [facility] Last Admin: 09/09/18 10:29 Dose: 40 mg Meropenem 500 mg/ Sodium (Chloride) 100 mls @ 100 mls/hr IVPB Q12H [facility]; Protocol Last Admin: 09/09/18 04:44 Dose: 100 mls/hr Metoprolol Tartrate (Lopressor) 25 mg PO 0800,1700 [facility] Last Admin: 09/09/18 13:01 Dose: 25 mg Nystatin (Nystop Topical Powder) 0 gm TOP TID [facility] Last Admin: 09/08/18 17:29 Dose: 1 apful Pantoprazole Sodium (Protonix Ec Tab) 40 mg PO DAILY [facility] Last Admin: 09/09/18 10:30 Dose: 40 mg Potassium Chloride (Potassium Chloride Oral Soln) 20 meq PO BID [facility] Sodium Bicarbonate (Sodium Bicarbonate Tab) 650 mg PO BID [facility] Thiamine HCl (Vitamin B1 Tab) 100 mg PO DAILY [facility] Last Admin: 09/09/18 10:30 Dose: 100 mg Vitamin A (Vitamin A & D Oint Ud Foilpak) 0.5 ea TOP Q4 [facility] Last Admin: 09/09/18 12:59 Dose: 0.5 ea Vitamin B Complex/Vit C/Folic Acid (Nephro-Fortino) 1 tab PO 0800 [facility] Last Admin: 09/09/18 08:30 Dose: 1 tab - Labs Labs: 09/09/18 07:04 09/09/18 07:04 PT 25.5 SECONDS (9.7-12.2) H 08/31/18 20:08 INR 2.3 08/31/18 20:08 APTT 34 SECONDS (21-34) 08/31/18 12:32
--- NOTE | 2018-09-09 15:21 | CP.PCM.PN ---
Subjective - Date & Time of Evaluation Date of Evaluation: 09/09/18 Time of Evaluation: 11:30 - Subjective Subjective: clinically same Objective - Vital Signs/Intake and Output Vital Signs (last 24 hours): Temp Pulse Resp BP Pulse Ox 98.7 F 118 H 20 126/87 100 09/09/18 12:00 09/09/18 12:00 09/09/18 12:00 09/09/18 13:01 09/09/18 12:00 Intake and Output: 09/09/18 09/09/18 06:59 18:59 Intake Total 580 Output Total 200 Balance 380 - Medications Medications: Current Medications Calcium/Vitamin D (Oyster Shell Calcium/Vitamin D 500 Mg-200 Iu) 1 tab PO BID [facility] Last Admin: 09/09/18 10:28 Dose: 1 tab Epoetin Morales (Procrit) 10,000 unit SC TTS [facility] Last Admin: 09/08/18 09:18 Dose: 10,000 unit Ergocalciferol (Drisdol 50,000 Intl Units Cap) 1 cap PO Q7D [facility] Last Admin: 09/08/18 13:53 Dose: 1 cap Ferrous Gluconate (Fergon) 324 mg PO TID [facility] Last Admin: 09/09/18 13:02 Dose: 324 mg Furosemide (Lasix) 40 mg PO BID [facility] Meropenem 500 mg/ Sodium (Chloride) 100 mls @ 100 mls/hr IVPB Q12H [facility]; Protocol Last Admin: 09/09/18 04:44 Dose: 100 mls/hr Metoprolol Tartrate (Lopressor) 25 mg PO 0800,1700 [facility] Last Admin: 09/09/18 13:01 Dose: 25 mg Nystatin (Nystop Topical Powder) 0 gm TOP TID [facility] Last Admin: 09/08/18 17:29 Dose: 1 apful Pantoprazole Sodium (Protonix Ec Tab) 40 mg PO DAILY [facility] Last Admin: 09/09/18 10:30 Dose: 40 mg Potassium Chloride (Potassium Chloride Oral Soln) 20 meq PO BID [facility] Sodium Bicarbonate (Sodium Bicarbonate Tab) 650 mg PO BID [facility] Thiamine HCl (Vitamin B1 Tab) 100 mg PO DAILY [facility] Last Admin: 09/09/18 10:30 Dose: 100 mg Vitamin A (Vitamin A & D Oint Ud Foilpak) 0.5 ea TOP Q4 [facility] Last Admin: 09/09/18 12:59 Dose: 0.5 ea Vitamin B Complex/Vit C/Folic Acid (Nephro-Fortino) 1 tab PO 0800 [facility] Last Admin: 09/09/18 08:30 Dose: 1 tab - Labs Labs: 09/09/18 07:04 09/09/18 07:04 PT 25.5 SECONDS (9.7-12.2) H 08/31/18 20:08 INR 2.3 08/31/18 20:08 APTT 34 SECONDS (21-34) 08/31/18 12:32 - Constitutional Appears: Well - Head Exam Head Exam: ATRAUMATIC, NORMAL INSPECTION, NORMOCEPHALIC - Eye Exam Eye Exam: EOMI, Normal appearance, PERRL Pupil Exam: NORMAL ACCOMODATION, PERRL - ENT Exam ENT Exam: Mucous Membranes Moist, Normal Exam - Neck Exam Neck Exam: Full ROM, Normal Inspection. absent: Lymphadenopathy - Respiratory Exam Respiratory Exam: Decreased Breath Sounds - Cardiovascular Exam Cardiovascular Exam: REGULAR RHYTHM, +S1, +S2 - GI/Abdominal Exam GI & Abdominal Exam: Soft, Diminished Bowel Sounds - Rectal Exam Rectal Exam: Deferred
[2018-09-09] MEDS: Potassium Chloride 20 mEq/15 ml LIQ UD PO SCH (17:13)
--- NOTE | 2018-09-09 18:50 | CP.PCM.PN ---
Subjective - Date & Time of Evaluation Date of Evaluation: 09/09/18 Time of Evaluation: 08:00 - Subjective Subjective: confused afebrile nad Objective - Vital Signs/Intake and Output Vital Signs (last 24 hours): Temp Pulse Resp BP Pulse Ox 98.7 F 118 H 20 134/72 100 09/09/18 16:00 09/09/18 16:00 09/09/18 16:00 09/09/18 17:12 09/09/18 16:00 Intake and Output: 09/09/18 09/09/18 06:59 18:59 Intake Total 1480 Output Total 430 Balance 1050 - Medications Medications: Current Medications Calcium/Vitamin D (Oyster Shell Calcium/Vitamin D 500 Mg-200 Iu) 1 tab PO BID [facility] Last Admin: 09/09/18 17:16 Dose: 1 tab Epoetin Morales (Procrit) 10,000 unit SC TTS [facility] Last Admin: 09/08/18 09:18 Dose: 10,000 unit Ergocalciferol (Drisdol 50,000 Intl Units Cap) 1 cap PO Q7D [facility] Last Admin: 09/08/18 13:53 Dose: 1 cap Ferrous Gluconate (Fergon) 324 mg PO TID [facility] Last Admin: 09/09/18 17:16 Dose: 324 mg Furosemide (Lasix) 40 mg PO BID [facility] Last Admin: 09/09/18 17:12 Dose: 40 mg Meropenem 500 mg/ Sodium (Chloride) 100 mls @ 100 mls/hr IVPB Q12H [facility]; Protocol Last Admin: 09/09/18 16:26 Dose: 100 mls/hr Metoprolol Tartrate (Lopressor) 25 mg PO 0800,1700 [facility] Last Admin: 09/09/18 17:12 Dose: 25 mg Nystatin (Nystop Topical Powder) 0 gm TOP TID [facility] Last Admin: 09/09/18 17:02 Dose: 1 apful Pantoprazole Sodium (Protonix Ec Tab) 40 mg PO DAILY [facility] Last Admin: 09/09/18 10:30 Dose: 40 mg Potassium Chloride (Potassium Chloride Oral Soln) 20 meq PO BID [facility] Last Admin: 09/09/18 17:13 Dose: 20 meq Potassium Chloride (K-Dur 20 Meq Er Tab) 40 meq PO Q4H [facility] Stop: 09/09/18 23:01 Sodium Bicarbonate (Sodium Bicarbonate Tab) 650 mg PO BID [facility] Last Admin: 09/09/18 17:13 Dose: 650 mg Thiamine HCl (Vitamin B1 Tab) 100 mg PO DAILY [facility] Last Admin: 09/09/18 10:30 Dose: 100 mg Vitamin A (Vitamin A & D Oint Ud Foilpak) 0.5 ea TOP Q4 [facility] Last Admin: 09/09/18 16:55 Dose: 0.5 ea Vitamin B Complex/Vit C/Folic Acid (Nephro-Fortino) 1 tab PO 0800 [facility] Last Admin: 09/09/18 08:30 Dose: 1 tab - Labs Labs: 09/09/18 07:04 09/09/18 07:04 PT 25.5 SECONDS (9.7-12.2) H 08/31/18 20:08 INR 2.3 08/31/18 20:08 APTT 34 SECONDS (21-34) 08/31/18 12:32 - Constitutional Appears: Non-toxic, Chronically Ill - Head Exam Head Exam: NORMOCEPHALIC - Eye Exam Eye Exam: absent: Scleral icterus - ENT Exam ENT Exam: Mucous Membranes Dry - Neck Exam Neck Exam: absent: Lymphadenopathy - Respiratory Exam Respiratory Exam: Decreased Breath Sounds - Cardiovascular Exam Cardiovascular Exam: REGULAR RHYTHM - GI/Abdominal Exam GI & Abdominal Exam: Distended - Rectal Exam Rectal Exam: Deferred - Exam Exam: NORMAL INSPECTION - Extremities Exam Extremities Exam: Pedal Edema - Back Exam Back Exam: absent: CVA tenderness (L), CVA tenderness (R) - Neurological Exam Neurological Exam: Altered - Psychiatric Exam Psychiatric exam: Depressed - Skin Skin Exam: Dry Assessment and Plan (1) Leukocytosis Status: Acute (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 - Assessment and Plan (Free Text) Assessment: cont iv rx for 12 days more
[2018-09-09] MEDS ORDERED: Potassium Chloride 20 mEq ER Tab PO SCH (19:00)
--- NOTE | 2018-09-09 23:35 | CP.PCM.PN ---
Subjective - Date & Time of Evaluation Date of Evaluation: 09/09/18 Time of Evaluation: 12:00 - Subjective Subjective: No complaints. Objective - Vital Signs/Intake and Output Vital Signs (last 24 hours): Temp Pulse Resp BP Pulse Ox 98.3 F 107 H 16 116/95 H 98 09/09/18 20:00 09/09/18 20:00 09/09/18 20:00 09/09/18 20:00 09/09/18 20:00 Intake and Output: 09/09/18 09/10/18 18:59 06:59 Intake Total 1480 Output Total 420 Balance 1060 - Medications Medications: Current Medications Calcium/Vitamin D (Oyster Shell Calcium/Vitamin D 500 Mg-200 Iu) 1 tab PO BID [facility] Last Admin: 09/09/18 17:16 Dose: 1 tab Epoetin Morales (Procrit) 10,000 unit SC TTS [facility] Last Admin: 09/08/18 09:18 Dose: 10,000 unit Ergocalciferol (Drisdol 50,000 Intl Units Cap) 1 cap PO Q7D [facility] Last Admin: 09/08/18 13:53 Dose: 1 cap Ferrous Gluconate (Fergon) 324 mg PO TID [facility] Last Admin: 09/09/18 17:16 Dose: 324 mg Furosemide (Lasix) 40 mg PO BID [facility] Last Admin: 09/09/18 17:12 Dose: 40 mg Meropenem 500 mg/ Sodium (Chloride) 100 mls @ 100 mls/hr IVPB Q12H [facility]; Protocol Last Admin: 09/09/18 16:26 Dose: 100 mls/hr Metoprolol Tartrate (Lopressor) 25 mg PO 0800,1700 [facility] Last Admin: 09/09/18 17:12 Dose: 25 mg Nystatin (Nystop Topical Powder) 0 gm TOP TID [facility] Last Admin: 09/09/18 17:02 Dose: 1 apful Pantoprazole Sodium (Protonix Ec Tab) 40 mg PO DAILY [facility] Last Admin: 09/09/18 10:30 Dose: 40 mg Potassium Chloride (Potassium Chloride Oral Soln) 20 meq PO BID [facility] Last Admin: 09/09/18 17:13 Dose: 20 meq Sodium Bicarbonate (Sodium Bicarbonate Tab) 650 mg PO BID [facility] Last Admin: 09/09/18 17:13 Dose: 650 mg Thiamine HCl (Vitamin B1 Tab) 100 mg PO DAILY [facility] Last Admin: 09/09/18 10:30 Dose: 100 mg Vitamin A (Vitamin A & D Oint Ud Foilpak) 0.5 ea TOP Q4 [facility] Last Admin: 09/09/18 16:55 Dose: 0.5 ea Vitamin B Complex/Vit C/Folic Acid (Nephro-Fortino) 1 tab PO 0800 [facility] Last Admin: 09/09/18 08:30 Dose: 1 tab - Labs Labs: 09/09/18 07:04 09/09/18 07:04 PT 25.5 SECONDS (9.7-12.2) H 08/31/18 20:08 INR 2.3 08/31/18 20:08 APTT 34 SECONDS (21-34) 08/31/18 12:32 - Head Exam Head Exam: ATRAUMATIC - Eye Exam Eye Exam: Normal appearance - ENT Exam ENT Exam: Mucous Membranes Dry - Respiratory Exam Respiratory Exam: NORMAL BREATHING PATTERN - Cardiovascular Exam Cardiovascular Exam: +S1, +S2 - GI/Abdominal Exam GI & Abdominal Exam: Normal Bowel Sounds Assessment and Plan (1) Anemia Assessment & Plan: prior work up consistent with anemia of chronic disease anemia of CKD - KESHAWN per renal transfusion support PRN no iron, b12, folate deficiency Status: Acute (2) Thrombocytopenia Assessment & Plan: mild ? medication related Status: Acute
[2018-09-10] MEDS: Vitamins A & D Oint UD Foilpak TOP SCH ×6 (04:00→20:40)
[2018-09-10] MEDS: Meropenem 500 MG in Sodium Chloride 0.9% 100 ML IVPB SCH ×2 (04:09→17:31)
[2018-09-10 06:25] LABS: BASO % 0.5 % (0.0-2.0); EOS % 0.3 % (0.0-4.0); HEMOGLOBIN 8.1 g/dL (11.0-16.0); LYMPH # 2.4 K/uL (1.0-4.3); LYMPH % 28.9 % (20.0-40.0); MEAN CELL VOLUME 96.1 fL (81.0-99.0); MEAN CORPUSCULAR HEMOGLOBIN 31.4 pg (27.0-31.0); MEAN CORPUSCULAR HGB CONC 32.6 g/dL (33.0-37.0); MEAN PLATELET VOLUME 9.9 fL (7.2-11.7); MONO # 0.5 K/uL (0.0-0.8); MONO % 5.7 % (0.0-10.0); NEUT # 5.3 K/uL (1.8-7.0); NEUT % 64.6 % (50.0-75.0); NRBC % 0.3 % (0.0-2.0); RBC 2.59 Mil/uL (3.80-5.20); RED CELL DISTRIBUTION WIDTH 17.4 % (11.5-14.5); WHITE BLOOD COUNT 8.2 K/uL (4.8-10.8)
[2018-09-10 06:54] LABS: ALB/GLOB RATIO 0.8 (1.0-2.1); CALCIUM 7.7 mg/dl (8.6-10.4)
[2018-09-10] MEDS: Multivitamin Vitamin B Complex (Nephro-Vite) Tab PO SCH (09:25)
[2018-09-10] MEDS: Pantoprazole 40 mg EC Tab PO SCH (09:26)
[2018-09-10] MEDS: Potassium Chloride 20 mEq/15 ml LIQ UD PO SCH ×2 (09:26→17:29)
[2018-09-10] MEDS: Nystatin 100,000 Units/gm Topical Pow(15 gm) TOP SCH ×3 (09:27→17:32)
[2018-09-10] MEDS: Epoetin Alfa 10,000 unit/ml Dialysis SC SCH (09:34)
[2018-09-10] MEDS: Calcium-Vit D 500 mg-200 Units Tab UD PO SCH ×2 (09:34→17:36)
--- NOTE | 2018-09-10 10:22 | CP.PCM.PN ---
Subjective - Date & Time of Evaluation Date of Evaluation: 09/10/18 Time of Evaluation: 10:20 - Subjective Subjective: No bleeding or melena Hgb=8.1 Objective - Vital Signs/Intake and Output Vital Signs (last 24 hours): Temp Pulse Resp BP Pulse Ox 98.7 F 113 H 17 117/76 97 09/10/18 08:00 09/10/18 08:00 09/10/18 04:00 09/10/18 09:25 09/10/18 08:00 Intake and Output: 09/10/18 09/10/18 06:59 18:59 Intake Total 400 Output Total 700 Balance -300 - Medications Medications: Current Medications Calcium/Vitamin D (Oyster Shell Calcium/Vitamin D 500 Mg-200 Iu) 1 tab PO BID [facility] Last Admin: 09/10/18 09:34 Dose: 1 tab Epoetin Morales (Procrit) 10,000 unit SC TTS [facility] Last Admin: 09/10/18 09:34 Dose: 10,000 unit Ergocalciferol (Drisdol 50,000 Intl Units Cap) 1 cap PO Q7D [facility] Last Admin: 09/08/18 13:53 Dose: 1 cap Ferrous Gluconate (Fergon) 324 mg PO TID [facility] Last Admin: 09/10/18 09:26 Dose: 324 mg Furosemide (Lasix) 40 mg PO BID [facility] Last Admin: 09/10/18 09:25 Dose: 40 mg Meropenem 500 mg/ Sodium (Chloride) 100 mls @ 100 mls/hr IVPB Q12H [facility]; Protocol Last Admin: 09/10/18 04:09 Dose: 100 mls/hr Metoprolol Tartrate (Lopressor) 25 mg PO 0800,1700 [facility] Last Admin: 09/10/18 08:30 Dose: 25 mg Nystatin (Nystop Topical Powder) 0 gm TOP TID [facility] Last Admin: 09/10/18 09:27 Dose: 1 apful Pantoprazole Sodium (Protonix Ec Tab) 40 mg PO DAILY [facility] Last Admin: 09/10/18 09:26 Dose: 40 mg Potassium Chloride (Potassium Chloride Oral Soln) 20 meq PO BID [facility] Last Admin: 09/10/18 09:26 Dose: 20 meq Sodium Bicarbonate (Sodium Bicarbonate Tab) 650 mg PO BID [facility] Last Admin: 09/10/18 09:24 Dose: 650 mg Thiamine HCl (Vitamin B1 Tab) 100 mg PO DAILY [facility] Last Admin: 09/10/18 09:26 Dose: 100 mg Vitamin A (Vitamin A & D Oint Ud Foilpak) 0.5 ea TOP Q4 [facility] Last Admin: 09/10/18 09:28 Dose: 0.5 ea Vitamin B Complex/Vit C/Folic Acid (Nephro-Fortino) 1 tab PO 0800 [facility] Last Admin: 09/10/18 09:25 Dose: 1 tab - Labs Labs: 09/10/18 06:19 09/10/18 06:19 PT 25.5 SECONDS (9.7-12.2) H 08/31/18 20:08 INR 2.3 08/31/18 20:08 APTT 34 SECONDS (21-34) 08/31/18 12:32 - Respiratory Exam Respiratory Exam: Rhonchi, NORMAL BREATHING PATTERN - Cardiovascular Exam Cardiovascular Exam: REGULAR RHYTHM - GI/Abdominal Exam GI & Abdominal Exam: Soft, Normal Bowel Sounds. absent: Tenderness, Mass, Rebound Additional comments: morbidly obese - Extremities Exam Extremities Exam: Pedal Edema Assessment and Plan (1) Anemia in chronic kidney disease Assessment & Plan: as below. No evidence of bleeding. Status: Chronic (2) Rectal bleeding Assessment & Plan: No evidence of further bleeding. Anemia more c/w chronic disease and dilutional. No current plans for colonoscopy in absence of overt bleeding. Will follow as needed. Status: Resolved
--- NOTE | 2018-09-10 15:26 | CP.PCM.PN ---
Subjective - Date & Time of Evaluation Date of Evaluation: 09/10/18 Time of Evaluation: 11:15 - Subjective Subjective: clinically same Objective - Vital Signs/Intake and Output Vital Signs (last 24 hours): Temp Pulse Resp BP Pulse Ox 98.7 F 113 H 17 117/76 97 09/10/18 08:00 09/10/18 08:00 09/10/18 04:00 09/10/18 09:25 09/10/18 08:00 Intake and Output: 09/10/18 09/10/18 06:59 18:59 Intake Total 400 400 Output Total 700 80 Balance -300 320 - Medications Medications: Current Medications Calcium/Vitamin D (Oyster Shell Calcium/Vitamin D 500 Mg-200 Iu) 1 tab PO BID [facility] Last Admin: 09/10/18 09:34 Dose: 1 tab Epoetin Morales (Procrit) 10,000 unit SC TTS [facility] Last Admin: 09/10/18 09:34 Dose: 10,000 unit Ergocalciferol (Drisdol 50,000 Intl Units Cap) 1 cap PO Q7D [facility] Last Admin: 09/08/18 13:53 Dose: 1 cap Ferrous Gluconate (Fergon) 324 mg PO TID [facility] Last Admin: 09/10/18 14:09 Dose: 324 mg Furosemide (Lasix) 40 mg PO BID [facility] Last Admin: 09/10/18 09:25 Dose: 40 mg Meropenem 500 mg/ Sodium (Chloride) 100 mls @ 100 mls/hr IVPB Q12H [facility]; Protocol Last Admin: 09/10/18 04:09 Dose: 100 mls/hr Metoprolol Tartrate (Lopressor) 25 mg PO 0800,1700 [facility] Last Admin: 09/10/18 08:30 Dose: 25 mg Nystatin (Nystop Topical Powder) 0 gm TOP TID [facility] Last Admin: 09/10/18 14:09 Dose: 1 apful Pantoprazole Sodium (Protonix Ec Tab) 40 mg PO DAILY [facility] Last Admin: 09/10/18 09:26 Dose: 40 mg Potassium Chloride (Potassium Chloride Oral Soln) 20 meq PO BID [facility] Last Admin: 09/10/18 09:26 Dose: 20 meq Potassium Chloride (K-Dur 20 Meq Er Tab) 40 meq PO ONCE ONE Stop: 09/11/18 18:01 Sodium Bicarbonate (Sodium Bicarbonate Tab) 650 mg PO BID [facility] Last Admin: 09/10/18 09:24 Dose: 650 mg Thiamine HCl (Vitamin B1 Tab) 100 mg PO DAILY [facility] Last Admin: 09/10/18 09:26 Dose: 100 mg Vitamin A (Vitamin A & D Oint Ud Foilpak) 0.5 ea TOP Q4 [facility] Last Admin: 09/10/18 14:09 Dose: 0.5 ea Vitamin B Complex/Vit C/Folic Acid (Nephro-Fortino) 1 tab PO 0800 [facility] Last Admin: 09/10/18 09:25 Dose: 1 tab - Labs Labs: 09/10/18 06:19 09/10/18 06:19 PT 25.5 SECONDS (9.7-12.2) H 08/31/18 20:08 INR 2.3 08/31/18 20:08 APTT 34 SECONDS (21-34) 08/31/18 12:32 - Constitutional Appears: Well - Head Exam Head Exam: ATRAUMATIC, NORMAL INSPECTION, NORMOCEPHALIC - Eye Exam Eye Exam: EOMI, Normal appearance, PERRL Pupil Exam: NORMAL ACCOMODATION, PERRL - ENT Exam ENT Exam: Mucous Membranes Moist, Normal Exam - Neck Exam Neck Exam: Full ROM, Normal Inspection. absent: Lymphadenopathy - Respiratory Exam Respiratory Exam: Decreased Breath Sounds - Cardiovascular Exam Cardiovascular Exam: REGULAR RHYTHM, +S1, +S2 - GI/Abdominal Exam GI & Abdominal Exam: Soft, Diminished Bowel Sounds - Rectal Exam Rectal Exam: Deferred
--- NOTE | 2018-09-10 15:30 | CP.PCM.PN ---
Subjective - Date & Time of Evaluation Date of Evaluation: 09/10/18 Time of Evaluation: 15:28 - Subjective Subjective: Nephrology Consultation Note Assessment: stable Acute Kidney Injury (N17.9) likely due to ATN and pre-renal state: recent work up for GN neg HAGMA with ketonemia likely due to ROBIN and ketoacidosis hypovolemic hyponatremia, Hypokalemia, hypocalcemia and hypomagnesemia likely due to GI (due to diarrhoea) and renal loss (was on lasix) with limited oral intake severe hypoalbuminemia with malnutration with anasarca Hypertensive Chronic Kidney Disease (I12.9) Chronic Kidney Disease (N18.9) Stage 3 with 55 mg albuminuria Anemia acute on chronic severe Mitral regurg with infective endocarditis, depression/Anxiety Plan No acute need for dialysis ROBIN improving Maintain hemodynamics stable. Avoid hypotension. Patient not on ACEI/ARB due to recent ROBIN Monitor Input/Output, daily weights and renal function with basic metabolic panel continue iron continue calcium c/w bicarb supplements daily.continue with lasix 40 bid PRBC as needed. had transfusion 09/02/18. on ESAs as epogen supplement lytes as needed S: seen and examined no events o/n Physical Examination: General Appearance: comfortable, in no acute respiratory distress, ill appearing and debilitated Vitals reviewed and noted as below Head; Atraumatic, normocephalic ENT: WNL EYES: Pupils are equal, round and reactive to light accommodation. Eye muscles and extraocular movement intact. Sclera is anicteric. Neck; supple no lymphadenopathy, no thyromegaly or bruit Lungs: Normal respiratory rate/effort. Breath sounds b/l decreased at bases Heart: normal rate. s1s2 normal. No rub or gallop. SM + at apex/LSB Extremities: 3+ edema with anasarca. No varicose veins Neurological: Patient is alert awake oriented follow commands Skin: Warm and dry. + desquamation b/l upper nad lower ext Abdomen: Abdomen is soft. Bowel sounds +. There is no abdominal tenderness, no guarding/rigidity no organomegaly Psych: lack insight. anxious MSK: no joint tenderness or swelling. Digits and nails normal, no deformity : kidney or bladder not palpable Objective - Vital Signs/Intake and Output Vital Signs (last 24 hours): Temp Pulse Resp BP Pulse Ox 97.8 F 120 H 18 136/78 98 11/17/18 12:00 09/10/18 12:00 09/10/18 12:00 09/10/18 12:00 09/10/18 12:00 Intake and Output: 09/10/18 09/10/18 06:59 18:59 Intake Total 400 400 Output Total 700 80 Balance -300 320 - Medications Medications: Current Medications Calcium/Vitamin D (Oyster Shell Calcium/Vitamin D 500 Mg-200 Iu) 1 tab PO BID [facility] Last Admin: 09/10/18 09:34 Dose: 1 tab Epoetin Morales (Procrit) 10,000 unit SC TTS [facility] Last Admin: 09/10/18 09:34 Dose: 10,000 unit Ergocalciferol (Drisdol 50,000 Intl Units Cap) 1 cap PO Q7D [facility] Last Admin: 09/08/18 13:53 Dose: 1 cap Ferrous Gluconate (Fergon) 324 mg PO TID [facility] Last Admin: 09/10/18 14:09 Dose: 324 mg Furosemide (Lasix) 40 mg PO BID [facility] Last Admin: 09/10/18 09:25 Dose: 40 mg Meropenem 500 mg/ Sodium (Chloride) 100 mls @ 100 mls/hr IVPB Q12H [facility]; Protocol Last Admin: 09/10/18 04:09 Dose: 100 mls/hr Metoprolol Tartrate (Lopressor) 25 mg PO 0800,1700 [facility] Last Admin: 09/10/18 08:30 Dose: 25 mg Nystatin (Nystop Topical Powder) 0 gm TOP TID [facility] Last Admin: 09/10/18 14:09 Dose: 1 apful Pantoprazole Sodium (Protonix Ec Tab) 40 mg PO DAILY [facility] Last Admin: 09/10/18 09:26 Dose: 40 mg Potassium Chloride (Potassium Chloride Oral Soln) 20 meq PO BID [facility] Last Admin: 09/10/18 09:26 Dose: 20 meq Potassium Chloride (K-Dur 20 Meq Er Tab) 40 meq PO ONCE ONE Stop: 09/11/18 18:01 Sodium Bicarbonate (Sodium Bicarbonate Tab) 650 mg PO BID [facility] Last Admin: 09/10/18 09:24 Dose: 650 mg Thiamine HCl (Vitamin B1 Tab) 100 mg PO DAILY [facility] Last Admin: 09/10/18 09:26 Dose: 100 mg Vitamin A (Vitamin A & D Oint Ud Foilpak) 0.5 ea TOP Q4 [facility] Last Admin: 09/10/18 14:09 Dose: 0.5 ea Vitamin B Complex/Vit C/Folic Acid (Nephro-Fortino) 1 tab PO 0800 [facility] Last Admin: 09/10/18 09:25 Dose: 1 tab - Labs Labs: 09/10/18 06:19 09/10/18 06:19 PT 25.5 SECONDS (9.7-12.2) H 08/31/18 20:08 INR 2.3 08/31/18 20:08 APTT 34 SECONDS (21-34) 08/31/18 12:32
[2018-09-10] MEDS ORDERED: Potassium Chloride 20 mEq ER Tab PO ONE (18:00)
[2018-09-11] MEDS: Vitamins A & D Oint UD Foilpak TOP SCH ×6 (01:01→21:07)
[2018-09-11] MEDS: Meropenem 500 MG in Sodium Chloride 0.9% 100 ML IVPB SCH ×2 (05:27→19:00)
[2018-09-11 08:12] LABS: BASO % 0.6 % (0.0-2.0); EOS % 0.1 % (0.0-4.0); HEMOGLOBIN 8.3 g/dL (11.0-16.0); LYMPH % 37.2 % (20.0-40.0); MEAN CELL VOLUME 96.8 fL (81.0-99.0); MEAN CORPUSCULAR HEMOGLOBIN 31.1 pg (27.0-31.0); MEAN CORPUSCULAR HGB CONC 32.1 g/dL (33.0-37.0); MONO # 0.5 K/uL (0.0-0.8); MONO % 6.4 % (0.0-10.0); NEUT # 4.6 K/uL (1.8-7.0); NEUT % 55.7 % (50.0-75.0); NRBC % 0.6 % (0.0-2.0); RBC 2.66 Mil/uL (3.80-5.20); RED CELL DISTRIBUTION WIDTH 18.8 % (11.5-14.5); WHITE BLOOD COUNT 8.2 K/uL (4.8-10.8)
[2018-09-11 08:51] LABS: ALB/GLOB RATIO 0.8 (1.0-2.1); CALCIUM 7.9 mg/dl (8.6-10.4)
[2018-09-11] MEDS: Pantoprazole 40 mg EC Tab PO SCH (10:58)
[2018-09-11] MEDS: Nystatin 100,000 Units/gm Topical Pow(15 gm) TOP SCH ×3 (11:00→18:53)
[2018-09-11] MEDS: Potassium Chloride 20 mEq ER Tab PO SCH ×2 (11:04→18:59)
[2018-09-11] MEDS: Calcium-Vit D 500 mg-200 Units Tab UD PO SCH ×2 (11:04→18:51)
[2018-09-11] MEDS: Multivitamin Vitamin B Complex (Nephro-Vite) Tab PO SCH (11:05)
--- NOTE | 2018-09-11 12:55 | CP.PCM.PN ---
Subjective - Date & Time of Evaluation Date of Evaluation: 09/11/18 Time of Evaluation: 10:30 - Subjective Subjective: clinically same Objective - Vital Signs/Intake and Output Vital Signs (last 24 hours): Temp Pulse Resp BP Pulse Ox 98.2 F 120 H 22 146/84 98 09/11/18 04:00 09/10/18 12:00 09/10/18 16:00 09/11/18 10:59 09/10/18 12:00 Intake and Output: 09/11/18 09/11/18 06:59 18:59 Intake Total 240 Output Total 450 Balance -210 - Medications Medications: Current Medications Calcium/Vitamin D (Oyster Shell Calcium/Vitamin D 500 Mg-200 Iu) 1 tab PO BID [facility] Last Admin: 09/11/18 11:04 Dose: 1 tab Epoetin Morales (Procrit) 10,000 unit SC TTS [facility] Last Admin: 09/10/18 09:34 Dose: 10,000 unit Ergocalciferol (Drisdol 50,000 Intl Units Cap) 1 cap PO Q7D [facility] Last Admin: 09/08/18 13:53 Dose: 1 cap Ferrous Gluconate (Fergon) 324 mg PO TID [facility] Last Admin: 09/11/18 10:59 Dose: 324 mg Furosemide (Lasix) 40 mg PO BID [facility] Last Admin: 09/11/18 10:59 Dose: 40 mg Meropenem 500 mg/ Sodium (Chloride) 100 mls @ 100 mls/hr IVPB Q12H [facility]; Protocol Last Admin: 09/11/18 05:27 Dose: 100 mls/hr Metoprolol Tartrate (Lopressor) 25 mg PO 0800,1700 [facility] Last Admin: 09/11/18 10:58 Dose: 25 mg Nystatin (Nystop Topical Powder) 0 gm TOP TID [facility] Last Admin: 09/11/18 11:00 Dose: 1 apful Pantoprazole Sodium (Protonix Ec Tab) 40 mg PO DAILY [facility] Last Admin: 09/11/18 10:58 Dose: 40 mg Potassium Chloride (K-Dur 20 Meq Er Tab) 20 meq PO BID [facility] Last Admin: 09/11/18 11:04 Dose: 20 meq Sodium Bicarbonate (Sodium Bicarbonate Tab) 650 mg PO BID [facility] Last Admin: 09/11/18 10:59 Dose: 650 mg Thiamine HCl (Vitamin B1 Tab) 100 mg PO DAILY [facility] Last Admin: 09/11/18 10:59 Dose: 100 mg Vitamin A (Vitamin A & D Oint Ud Foilpak) 0.5 ea TOP Q4 [facility] Last Admin: 09/11/18 08:20 Dose: Not Given Vitamin B Complex/Vit C/Folic Acid (Nephro-Fortino) 1 tab PO 0800 [facility] Last Admin: 09/11/18 11:05 Dose: 1 tab - Labs Labs: 09/11/18 08:05 09/11/18 08:05 PT 25.5 SECONDS (9.7-12.2) H 08/31/18 20:08 INR 2.3 08/31/18 20:08 APTT 34 SECONDS (21-34) 08/31/18 12:32 - Constitutional Appears: Well - Head Exam Head Exam: ATRAUMATIC, NORMAL INSPECTION, NORMOCEPHALIC - Eye Exam Eye Exam: EOMI, Normal appearance, PERRL Pupil Exam: NORMAL ACCOMODATION, PERRL - ENT Exam ENT Exam: Mucous Membranes Moist, Normal Exam - Respiratory Exam Respiratory Exam: Decreased Breath Sounds - Cardiovascular Exam Cardiovascular Exam: REGULAR RHYTHM, +S1, +S2 - GI/Abdominal Exam GI & Abdominal Exam: Soft, Diminished Bowel Sounds - Rectal Exam Rectal Exam: Deferred
--- NOTE | 2018-09-11 16:36 | CP.PCM.PN ---
Subjective - Date & Time of Evaluation Date of Evaluation: 09/11/18 Time of Evaluation: 07:00 - Subjective Subjective: lethargic nad IV rx in progeress Objective - Vital Signs/Intake and Output Vital Signs (last 24 hours): Temp Pulse Resp BP Pulse Ox 98.2 F 120 H 22 146/84 98 09/11/18 04:00 09/10/18 12:00 09/10/18 16:00 09/11/18 10:59 09/10/18 12:00 Intake and Output: 09/11/18 09/11/18 06:59 18:59 Intake Total 240 Output Total 450 Balance -210 - Medications Medications: Current Medications Calcium/Vitamin D (Oyster Shell Calcium/Vitamin D 500 Mg-200 Iu) 1 tab PO BID [facility] Last Admin: 09/11/18 11:04 Dose: 1 tab Epoetin Morales (Procrit) 10,000 unit SC TTS [facility] Last Admin: 09/10/18 09:34 Dose: 10,000 unit Ergocalciferol (Drisdol 50,000 Intl Units Cap) 1 cap PO Q7D [facility] Last Admin: 09/08/18 13:53 Dose: 1 cap Ferrous Gluconate (Fergon) 324 mg PO TID [facility] Last Admin: 09/11/18 14:11 Dose: 324 mg Furosemide (Lasix) 40 mg PO BID [facility] Last Admin: 09/11/18 10:59 Dose: 40 mg Meropenem 500 mg/ Sodium (Chloride) 100 mls @ 100 mls/hr IVPB Q12H [facility]; Protocol Last Admin: 09/11/18 05:27 Dose: 100 mls/hr Metoprolol Tartrate (Lopressor) 25 mg PO 0800,1700 [facility] Last Admin: 09/11/18 10:58 Dose: 25 mg Nystatin (Nystop Topical Powder) 0 gm TOP TID [facility] Last Admin: 09/11/18 14:11 Dose: 1 apful Pantoprazole Sodium (Protonix Ec Tab) 40 mg PO DAILY [facility] Last Admin: 09/11/18 10:58 Dose: 40 mg Potassium Chloride (K-Dur 20 Meq Er Tab) 20 meq PO BID [facility] Last Admin: 09/11/18 11:04 Dose: 20 meq Sodium Bicarbonate (Sodium Bicarbonate Tab) 650 mg PO BID [facility] Last Admin: 09/11/18 10:59 Dose: 650 mg Thiamine HCl (Vitamin B1 Tab) 100 mg PO DAILY [facility] Last Admin: 09/11/18 10:59 Dose: 100 mg Vitamin A (Vitamin A & D Oint Ud Foilpak) 0.5 ea TOP Q4 [facility] Last Admin: 09/11/18 14:11 Dose: 0.5 ea Vitamin B Complex/Vit C/Folic Acid (Nephro-Fortino) 1 tab PO 0800 [facility] Last Admin: 09/11/18 11:05 Dose: 1 tab - Labs Labs: 09/11/18 08:05 09/11/18 08:05 PT 25.5 SECONDS (9.7-12.2) H 08/31/18 20:08 INR 2.3 08/31/18 20:08 APTT 34 SECONDS (21-34) 08/31/18 12:32 - Constitutional Appears: Non-toxic, Chronically Ill - Head Exam Head Exam: NORMOCEPHALIC - Eye Exam Eye Exam: absent: Scleral icterus - ENT Exam ENT Exam: Mucous Membranes Dry - Neck Exam Neck Exam: absent: Lymphadenopathy - Respiratory Exam Respiratory Exam: Decreased Breath Sounds - Cardiovascular Exam Cardiovascular Exam: REGULAR RHYTHM - GI/Abdominal Exam GI & Abdominal Exam: Distended, Soft - Rectal Exam Rectal Exam: Deferred - Exam Exam: NORMAL INSPECTION Assessment and Plan (1) Leukocytosis Status: Acute (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 - Assessment and Plan (Free Text) Assessment: cont merrem to complete 8 more days iv rx
[2018-09-11] MEDS ORDERED: Potassium Chloride 20 mEq ER Tab PO ONE (18:00)
[2018-09-12] MEDS: Vitamins A & D Oint UD Foilpak TOP SCH ×6 (00:57→20:23)
[2018-09-12] MEDS: Meropenem 500 MG in Sodium Chloride 0.9% 100 ML IVPB SCH ×2 (04:25→16:17)
[2018-09-12 06:20] LABS: BASO % 0.5 % (0.0-2.0); EOS % 0.3 % (0.0-4.0); HEMOGLOBIN 8.4 g/dL (11.0-16.0); LYMPH # 2.6 K/uL (1.0-4.3); LYMPH % 32.5 % (20.0-40.0); MEAN CELL VOLUME 96.7 fL (81.0-99.0); MEAN CORPUSCULAR HEMOGLOBIN 31.3 pg (27.0-31.0); MEAN CORPUSCULAR HGB CONC 32.4 g/dL (33.0-37.0); MEAN PLATELET VOLUME 9.6 fL (7.2-11.7); MONO # 0.4 K/uL (0.0-0.8); MONO % 4.6 % (0.0-10.0); NEUT % 62.1 % (50.0-75.0); NRBC % 0.1 % (0.0-2.0); RBC 2.69 Mil/uL (3.80-5.20); RED CELL DISTRIBUTION WIDTH 18.4 % (11.5-14.5); WHITE BLOOD COUNT 8.1 K/uL (4.8-10.8)
[2018-09-12 06:31] LABS: ALB/GLOB RATIO 0.7 (1.0-2.1); ALT/SGPT 17 U/L (9-52); AST/SGOT 18 U/L (14-36); BLOOD UREA NITROGEN 34 mg/dL (7-17); CALCIUM 7.9 mg/dl (8.6-10.4); GFR NON-AFRICAN AMERICAN 50
[2018-09-12] MEDS: Multivitamin Vitamin B Complex (Nephro-Vite) Tab PO SCH (08:37)
[2018-09-12] MEDS: Pantoprazole 40 mg EC Tab PO SCH (10:15)
[2018-09-12] MEDS: Potassium Chloride 20 mEq ER Tab PO SCH ×2 (10:15→18:10)
[2018-09-12] MEDS: Calcium-Vit D 500 mg-200 Units Tab UD PO SCH ×2 (10:15→18:10)
[2018-09-12] MEDS: Nystatin 100,000 Units/gm Topical Pow(15 gm) TOP SCH ×3 (10:18→18:11)
--- NOTE | 2018-09-12 11:23 | CP.PCM.PN ---
Subjective - Date & Time of Evaluation Date of Evaluation: 09/12/18 Time of Evaluation: 08:00 - Subjective Subjective: afeb on IV antibiotics severe anasarca persists Objective - Vital Signs/Intake and Output Vital Signs (last 24 hours): Temp Pulse Resp BP Pulse Ox 98.3 F 108 H 18 136/66 96 09/12/18 04:00 09/12/18 07:59 09/11/18 20:00 09/12/18 10:16 09/11/18 20:00 Intake and Output: 09/12/18 09/12/18 06:59 18:59 Intake Total 480 Output Total 400 Balance 80 - Medications Medications: Current Medications Calcium/Vitamin D (Oyster Shell Calcium/Vitamin D 500 Mg-200 Iu) 1 tab PO BID [facility] Last Admin: 09/12/18 10:15 Dose: 1 tab Epoetin Morales (Procrit) 10,000 unit SC TTS [facility] Last Admin: 09/10/18 09:34 Dose: 10,000 unit Ergocalciferol (Drisdol 50,000 Intl Units Cap) 1 cap PO Q7D [facility] Last Admin: 09/08/18 13:53 Dose: 1 cap Ferrous Gluconate (Fergon) 324 mg PO TID [facility] Last Admin: 09/12/18 10:13 Dose: 324 mg Furosemide (Lasix) 40 mg PO BID [facility] Last Admin: 09/12/18 10:16 Dose: 40 mg Meropenem 500 mg/ Sodium (Chloride) 100 mls @ 100 mls/hr IVPB Q12H [facility]; Pro tocol Last Admin: 09/12/18 04:25 Dose: 100 mls/hr Metoprolol Tartrate (Lopressor) 25 mg PO 0800,1700 [facility] Last Admin: 09/12/18 08:37 Dose: 25 mg Nystatin (Nystop Topical Powder) 0 gm TOP TID [facility] Last Admin: 09/12/18 10:18 Dose: 1 applic Pantoprazole Sodium (Protonix Ec Tab) 40 mg PO DAILY [facility] Last Admin: 09/12/18 10:15 Dose: 40 mg Potassium Chloride (K-Dur 20 Meq Er Tab) 20 meq PO BID [facility] Last Admin: 09/12/18 10:15 Dose: 20 meq Sodium Bicarbonate (Sodium Bicarbonate Tab) 650 mg PO BID [facility] Last Admin: 09/12/18 10:15 Dose: 650 mg Thiamine HCl (Vitamin B1 Tab) 100 mg PO DAILY [facility] Last Admin: 09/11/18 10:59 Dose: 100 mg Vitamin A (Vitamin A & D Oint Ud Foilpak) 0.5 ea TOP Q4 [facility] Last Admin: 09/12/18 08:37 Dose: 0.5 ea Vitamin B Complex/Vit C/Folic Acid (Nephro-Fortino) 1 tab PO 0800 [facility] Last Admin: 09/12/18 08:37 Dose: 1 tab - Labs Labs: 09/12/18 06:05 09/12/18 06:03 PT 25.5 SECONDS (9.7-12.2) H 08/31/18 20:08 INR 2.3 08/31/18 20:08 APTT 34 SECONDS (21-34) 08/31/18 12:32 - Constitutional Appears: Non-toxic, Chronically Ill - Head Exam Head Exam: NORMOCEPHALIC - Eye Exam Eye Exam: absent: Scleral icterus - ENT Exam ENT Exam: Mucous Membranes Dry - Neck Exam Neck Exam: absent: Lymphadenopathy - Respiratory Exam Respiratory Exam: Decreased Breath Sounds - Cardiovascular Exam Cardiovascular Exam: REGULAR RHYTHM - GI/Abdominal Exam GI & Abdominal Exam: Distended, Soft - Rectal Exam Rectal Exam: Deferred - Extremities Exam Extremities Exam: Pedal Edema - Back Exam Back Exam: absent: CVA tenderness (L), CVA tenderness (R) - Neurological Exam Neurological Exam: Alert, Awake, CN II-XII Intact Assessment and Plan (1) Leukocytosis Status: Acute (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 - Assessment and Plan (Free Text) Assessment: to complete IV antibiotics next week
--- NOTE | 2018-09-12 16:06 | CP.PCM.PN ---
Subjective - Date & Time of Evaluation Date of Evaluation: 09/12/18 Time of Evaluation: 16:05 - Subjective Subjective: Nephrology Consultation Note Assessment: stable Acute Kidney Injury (N17.9) likely due to ATN and pre-renal state: recent work up for GN neg; resolving HAGMA with ketonemia likely due to ROBIN and ketoacidosis hypovolemic hyponatremia, Hypokalemia, hypocalcemia and hypomagnesemia likely due to GI (due to diarrhoea) and renal loss (was on lasix) with limited oral intake severe hypoalbuminemia with malnutration with anasarca Hypertensive Chronic Kidney Disease (I12.9) Chronic Kidney Disease (N18.9) Stage 3 with 55 mg albuminuria Anemia acute on chronic severe Mitral regurg with infective endocarditis, depression/Anxiety Plan Maintain hemodynamics stable. Avoid hypotension. Patient not on ACEI/ARB due to recent ROBIN Monitor Input/Output, daily weights and renal function with basic metabolic panel started Fe, MVI, and weekly Vit D, OScal D: resume as pt now able to take PO c/w bicarb supplements daily.continue with lasix 40 bid but changed to IVP as edema still persisting PRBC as needed. had transfusion 09/02/18. on ESAs as epogen supplement lytes as needed stopped bicarb Dose meds/antibiotics for improved GFR. Glycemic control Further work up for as per primary team Thanks for allowing me to participate in care of your patient. Will follow patient with you. Please call if any Qs. had d/w team Dr Heriberto Hernandez Office: [phone] reason for consult; ROBIN and electrolytes abnormalities HPI: pt is a 62 F with hx of HTN, depression who was recently admitted to hospital with ROBIN required few session of HD then improved with cr 1.2, also with infective endocarditis with severe MR but pt refused surgery and decided only for IV antibiotics treatments came as was feeling weak, found to have severe electrolytes depletion and renal consult for ROBIN. pt feels nervous. reports decreased oral intake and c.o loose stool besides that not providing much hx nor recent Iv contrast. noted low BP ROS: denies SOB, chest pain. feels better Physical Examination: General Appearance: comfortable, in no acute respiratory distress, ill appearing and debilitated Vitals reviewed and noted as below Head; Atraumatic, normocephalic ENT: WNL EYES: Pupils are equal, round and reactive to light accommodation. Eye muscles and extraocular movement intact. Sclera is anicteric. Neck; supple no lymphadenopathy, no thyromegaly or bruit Lungs: Normal respiratory rate/effort. Breath sounds b/l decreased at bases Heart: normal rate. s1s2 normal. No rub or gallop. SM + at apex/LSB Extremities: 3+ edema with anasarca. No varicose veins Neurological: Patient is alert awake oriented follow commands Skin: Warm and dry. Normal turgor. Palpitation: Normal elasticity for age. skin echymoses + rash in lower extremity with blisetring and desquamation changes upper ext Abdomen: Abdomen is soft. Bowel sounds +. There is no abdominal tenderness, no guarding/rigidity no organomegaly Psych: lack insight. anxious MSK: no joint tenderness or swelling. Digits and nails normal, no deformity : kidney or bladder not palpable Labs/imaging reviewed. Past medical history, past surgical history, family history, social history, allergy reviewed and noted as below Family hx: no hx of CKD. Rest non-contributory work up: Hep B/C/HIV neg renal imaging: unremarkable A1c 5.5% UA no protein 1+ blood LINDSEY/ANCA neg, K/L ratio WNLTSAT 9% ferritin 221 Vit D <12.8 PTH 268 FENa 0.3% TTKG 15 Objective - Vital Signs/Intake and Output Vital Signs (last 24 hours): Temp Pulse Resp BP Pulse Ox 98.3 F 108 H 18 136/66 96 09/12/18 04:00 09/12/18 07:59 09/11/18 20:00 09/12/18 10:16 09/11/18 20:00 Intake and Output: 09/12/18 09/12/18 06:59 18:59 Intake Total 480 Output Total 400 Balance 80 - Medications Medications: Current Medications Calcium/Vitamin D (Oyster Shell Calcium/Vitamin D 500 Mg-200 Iu) 1 tab PO BID [facility] Last Admin: 09/12/18 10:15 Dose: 1 tab Epoetin Morales (Procrit) 10,000 unit SC TTS [facility] Last Admin: 09/10/18 09:34 Dose: 10,000 unit Ergocalciferol (Drisdol 50,000 Intl Units Cap) 1 cap PO Q7D [facility] Last Admin: 09/08/18 13:53 Dose: 1 cap Ferrous Gluconate (Fergon) 324 mg PO TID [facility] Last Admin: 09/12/18 14:36 Dose: 324 mg Furosemide (Lasix) 40 mg IVP BID [facility] Meropenem 500 mg/ Sodium (Chloride) 100 mls @ 100 mls/hr IVPB Q12H [facility]; Protocol Last Admin: 09/12/18 04:25 Dose: 100 mls/hr Metoprolol Tartrate (Lopressor) 25 mg PO 0800,1700 [facility] Last Admin: 09/12/18 08:37 Dose: 25 mg Nystatin (Nystop Topical Powder) 0 gm TOP TID [facility] Last Admin: 09/12/18 10:18 Dose: 1 applic Pantoprazole Sodium (Protonix Ec Tab) 40 mg PO DAILY [facility] Last Admin: 09/12/18 10:15 Dose: 40 mg Potassium Chloride (K-Dur 20 Meq Er Tab) 20 meq PO BID [facility] Last Admin: 09/12/18 10:15 Dose: 20 meq Vitamin A (Vitamin A & D Oint Ud Foilpak) 0.5 ea TOP Q4 [facility] Last Admin: 09/12/18 12:42 Dose: 0.5 ea Vitamin B Complex/Vit C/Folic Acid (Nephro-Fortino) 1 tab PO 0800 [facility] Last Admin: 09/12/18 08:37 Dose: 1 tab - Labs Labs: 09/12/18 06:05 09/12/18 06:03 PT 25.5 SECONDS (9.7-12.2) H 08/31/18 20:08 INR 2.3 08/31/18 20:08 APTT 34 SECONDS (21-34) 08/31/18 12:32
--- NOTE | 2018-09-12 19:04 | CP.PCM.PN ---
Subjective - Date & Time of Evaluation Date of Evaluation: 09/12/18 Time of Evaluation: 11:45 - Subjective Subjective: clinically same Objective - Vital Signs/Intake and Output Vital Signs (last 24 hours): Temp Pulse Resp BP Pulse Ox 97.4 F L 111 H 15 120/79 100 09/12/18 16:00 09/12/18 16:20 09/12/18 16:20 09/12/18 18:10 09/12/18 14:00 Intake and Output: 09/12/18 09/13/18 18:59 06:59 Intake Total 500 Output Total 600 Balance -100 - Medications Medications: Current Medications Calcium/Vitamin D (Oyster Shell Calcium/Vitamin D 500 Mg-200 Iu) 1 tab PO BID [facility] Last Admin: 09/12/18 18:10 Dose: 1 tab Epoetin Morales (Procrit) 10,000 unit SC TTS [facility] Last Admin: 09/10/18 09:34 Dose: 10,000 unit Ergocalciferol (Drisdol 50,000 Intl Units Cap) 1 cap PO Q7D [facility] Last Admin: 09/08/18 13:53 Dose: 1 cap Ferrous Gluconate (Fergon) 324 mg PO TID [facility] Last Admin: 09/12/18 18:10 Dose: 324 mg Furosemide (Lasix) 40 mg IVP BID [facility] Last Admin: 09/12/18 18:10 Dose: 40 mg Meropenem 500 mg/ Sodium (Chloride) 100 mls @ 100 mls/hr IVPB Q12H [facility]; Protocol Last Admin: 09/12/18 16:17 Dose: 100 mls/hr Metoprolol Tartrate (Lopressor) 25 mg PO 0800,1700 [facility] Last Admin: 09/12/18 16:19 Dose: 25 mg Nystatin (Nystop Topical Powder) 0 gm TOP TID [facility] Last Admin: 09/12/18 18:11 Dose: 1 applic Pantoprazole Sodium (Protonix Ec Tab) 40 mg PO DAILY [facility] Last Admin: 09/12/18 10:15 Dose: 40 mg Potassium Chloride (K-Dur 20 Meq Er Tab) 20 meq PO BID [facility] Last Admin: 09/12/18 18:10 Dose: 20 meq Vitamin A (Vitamin A & D Oint Ud Foilpak) 0.5 ea TOP Q4 [facility] Last Admin: 09/12/18 16:18 Dose: 0.5 ea Vitamin B Complex/Vit C/Folic Acid (Nephro-Fortino) 1 tab PO 0800 [facility] Last Admin: 09/12/18 08:37 Dose: 1 tab - Labs Labs: 09/12/18 06:05 09/12/18 06:03 PT 25.5 SECONDS (9.7-12.2) H 08/31/18 20:08 INR 2.3 08/31/18 20:08 APTT 34 SECONDS (21-34) 08/31/18 12:32
--- NOTE | 2018-09-12 22:15 | CP.PCM.PN ---
Subjective - Date & Time of Evaluation Date of Evaluation: 09/10/18 Time of Evaluation: 15:00 - Subjective Subjective: No complaints. Objective - Vital Signs/Intake and Output Vital Signs (last 24 hours): Temp Pulse Resp BP Pulse Ox 97.9 F 109 H 16 119/70 98 09/12/18 20:00 09/12/18 20:00 09/12/18 20:00 09/12/18 20:00 09/12/18 20:00 Intake and Output: 09/12/18 09/13/18 18:59 06:59 Intake Total 500 Output Total 600 Balance -100 - Medications Medications: Current Medications Calcium/Vitamin D (Oyster Shell Calcium/Vitamin D 500 Mg-200 Iu) 1 tab PO BID [facility] Last Admin: 09/12/18 18:10 Dose: 1 tab Epoetin Morales (Procrit) 10,000 unit SC TTS [facility] Last Admin: 09/10/18 09:34 Dose: 10,000 unit Ergocalciferol (Drisdol 50,000 Intl Units Cap) 1 cap PO Q7D [facility] Last Admin: 09/08/18 13:53 Dose: 1 cap Ferrous Gluconate (Fergon) 324 mg PO TID [facility] Last Admin: 09/12/18 18:10 Dose: 324 mg Furosemide (Lasix) 40 mg IVP BID [facility] Last Admin: 09/12/18 18:10 Dose: 40 mg Meropenem 500 mg/ Sodium (Chloride) 100 mls @ 100 mls/hr IVPB Q12H [facility]; Protocol Last Admin: 09/12/18 16:17 Dose: 100 mls/hr Metoprolol Tartrate (Lopressor) 25 mg PO 0800,1700 [facility] Last Admin: 09/12/18 16:19 Dose: 25 mg Nystatin (Nystop Topical Powder) 0 gm TOP TID [facility] Last Admin: 09/12/18 18:11 Dose: 1 applic Pantoprazole Sodium (Protonix Ec Tab) 40 mg PO DAILY [facility] Last Admin: 09/12/18 10:15 Dose: 40 mg Potassium Chloride (K-Dur 20 Meq Er Tab) 20 meq PO BID [facility] Last Admin: 09/12/18 18:10 Dose: 20 meq Vitamin A (Vitamin A & D Oint Ud Foilpak) 0.5 ea TOP Q4 [facility] Last Admin: 09/12/18 20:23 Dose: 0.5 ea Vitamin B Complex/Vit C/Folic Acid (Nephro-Fortino) 1 tab PO 0800 [facility] Last Admin: 09/12/18 08:37 Dose: 1 tab - Labs Labs: 09/12/18 06:05 09/12/18 06:03 PT 25.5 SECONDS (9.7-12.2) H 08/31/18 20:08 INR 2.3 08/31/18 20:08 APTT 34 SECONDS (21-34) 08/31/18 12:32 - Head Exam Head Exam: ATRAUMATIC - Eye Exam Eye Exam: Normal appearance - ENT Exam ENT Exam: Mucous Membranes Dry - Respiratory Exam Respiratory Exam: NORMAL BREATHING PATTERN - Cardiovascular Exam Cardiovascular Exam: +S1, +S2 - GI/Abdominal Exam GI & Abdominal Exam: Normal Bowel Sounds Assessment and Plan (1) Anemia Assessment & Plan: prior work up consistent with anemia of chronic disease anemia of CKD - KESHAWN per renal transfusion support PRN no iron, b12, folate deficiency Status: Acute (2) Thrombocytopenia Assessment & Plan: mild ? medication related Status: Acute
--- NOTE | 2018-09-12 22:17 | CP.PCM.PN ---
Subjective - Date & Time of Evaluation Date of Evaluation: 09/11/18 Time of Evaluation: 17:00 - Subjective Subjective: No complaints. Objective - Vital Signs/Intake and Output Vital Signs (last 24 hours): Temp Pulse Resp BP Pulse Ox 97.9 F 109 H 16 119/70 98 09/12/18 20:00 09/12/18 20:00 09/12/18 20:00 09/12/18 20:00 09/12/18 20:00 Intake and Output: 09/12/18 09/13/18 18:59 06:59 Intake Total 500 Output Total 600 Balance -100 - Medications Medications: Current Medications Calcium/Vitamin D (Oyster Shell Calcium/Vitamin D 500 Mg-200 Iu) 1 tab PO BID [facility] Last Admin: 09/12/18 18:10 Dose: 1 tab Epoetin Morales (Procrit) 10,000 unit SC TTS [facility] Last Admin: 09/10/18 09:34 Dose: 10,000 unit Ergocalciferol (Drisdol 50,000 Intl Units Cap) 1 cap PO Q7D [facility] Last Admin: 09/08/18 13:53 Dose: 1 cap Ferrous Gluconate (Fergon) 324 mg PO TID [facility] Last Admin: 09/12/18 18:10 Dose: 324 mg Furosemide (Lasix) 40 mg IVP BID [facility] Last Admin: 09/12/18 18:10 Dose: 40 mg Meropenem 500 mg/ Sodium (Chloride) 100 mls @ 100 mls/hr IVPB Q12H [facility]; Protocol Last Admin: 09/12/18 16:17 Dose: 100 mls/hr Metoprolol Tartrate (Lopressor) 25 mg PO 0800,1700 [facility] Last Admin: 09/12/18 16:19 Dose: 25 mg Nystatin (Nystop Topical Powder) 0 gm TOP TID [facility] Last Admin: 09/12/18 18:11 Dose: 1 applic Pantoprazole Sodium (Protonix Ec Tab) 40 mg PO DAILY [facility] Last Admin: 09/12/18 10:15 Dose: 40 mg Potassium Chloride (K-Dur 20 Meq Er Tab) 20 meq PO BID [facility] Last Admin: 09/12/18 18:10 Dose: 20 meq Vitamin A (Vitamin A & D Oint Ud Foilpak) 0.5 ea TOP Q4 [facility] Last Admin: 09/12/18 20:23 Dose: 0.5 ea Vitamin B Complex/Vit C/Folic Acid (Nephro-Fortino) 1 tab PO 0800 [facility] Last Admin: 09/12/18 08:37 Dose: 1 tab - Labs Labs: 09/12/18 06:05 09/12/18 06:03 PT 25.5 SECONDS (9.7-12.2) H 08/31/18 20:08 INR 2.3 08/31/18 20:08 APTT 34 SECONDS (21-34) 08/31/18 12:32 - Head Exam Head Exam: ATRAUMATIC - Eye Exam Eye Exam: Normal appearance - ENT Exam ENT Exam: Mucous Membranes Dry - Respiratory Exam Respiratory Exam: NORMAL BREATHING PATTERN - Cardiovascular Exam Cardiovascular Exam: +S1, +S2 - GI/Abdominal Exam GI & Abdominal Exam: Normal Bowel Sounds Assessment and Plan (1) Anemia Assessment & Plan: prior work up consistent with anemia of chronic disease anemia of CKD - KESHAWN per renal transfusion support PRN no iron, b12, folate deficiency Status: Acute (2) Thrombocytopenia Assessment & Plan: mild ? medication related Status: Acute
--- NOTE | 2018-09-12 22:18 | CP.PCM.PN ---
Subjective - Date & Time of Evaluation Date of Evaluation: 09/12/18 Time of Evaluation: 18:00 - Subjective Subjective: No complaints. Objective - Vital Signs/Intake and Output Vital Signs (last 24 hours): Temp Pulse Resp BP Pulse Ox 97.9 F 109 H 16 119/70 98 09/12/18 20:00 09/12/18 20:00 09/12/18 20:00 09/12/18 20:00 09/12/18 20:00 Intake and Output: 09/12/18 09/13/18 18:59 06:59 Intake Total 500 Output Total 600 Balance -100 - Medications Medications: Current Medications Calcium/Vitamin D (Oyster Shell Calcium/Vitamin D 500 Mg-200 Iu) 1 tab PO BID [facility] Last Admin: 09/12/18 18:10 Dose: 1 tab Epoetin Morales (Procrit) 10,000 unit SC TTS [facility] Last Admin: 09/10/18 09:34 Dose: 10,000 unit Ergocalciferol (Drisdol 50,000 Intl Units Cap) 1 cap PO Q7D [facility] Last Admin: 09/08/18 13:53 Dose: 1 cap Ferrous Gluconate (Fergon) 324 mg PO TID [facility] Last Admin: 09/12/18 18:10 Dose: 324 mg Furosemide (Lasix) 40 mg IVP BID [facility] Last Admin: 09/12/18 18:10 Dose: 40 mg Meropenem 500 mg/ Sodium (Chloride) 100 mls @ 100 mls/hr IVPB Q12H [facility]; Protocol Last Admin: 09/12/18 16:17 Dose: 100 mls/hr Metoprolol Tartrate (Lopressor) 25 mg PO 0800,1700 [facility] Last Admin: 09/12/18 16:19 Dose: 25 mg Nystatin (Nystop Topical Powder) 0 gm TOP TID [facility] Last Admin: 09/12/18 18:11 Dose: 1 applic Pantoprazole Sodium (Protonix Ec Tab) 40 mg PO DAILY [facility] Last Admin: 09/12/18 10:15 Dose: 40 mg Potassium Chloride (K-Dur 20 Meq Er Tab) 20 meq PO BID [facility] Last Admin: 09/12/18 18:10 Dose: 20 meq Vitamin A (Vitamin A & D Oint Ud Foilpak) 0.5 ea TOP Q4 [facility] Last Admin: 09/12/18 20:23 Dose: 0.5 ea Vitamin B Complex/Vit C/Folic Acid (Nephro-Fortino) 1 tab PO 0800 [facility] Last Admin: 09/12/18 08:37 Dose: 1 tab - Labs Labs: 09/12/18 06:05 09/12/18 06:03 PT 25.5 SECONDS (9.7-12.2) H 08/31/18 20:08 INR 2.3 08/31/18 20:08 APTT 34 SECONDS (21-34) 08/31/18 12:32 - Head Exam Head Exam: ATRAUMATIC - Eye Exam Eye Exam: Normal appearance - ENT Exam ENT Exam: Mucous Membranes Dry - Respiratory Exam Respiratory Exam: NORMAL BREATHING PATTERN - Cardiovascular Exam Cardiovascular Exam: +S1, +S2 - GI/Abdominal Exam GI & Abdominal Exam: Normal Bowel Sounds Assessment and Plan (1) Anemia Assessment & Plan: prior work up consistent with anemia of chronic disease anemia of CKD - KESHAWN per renal transfusion support PRN no iron, b12, folate deficiency Status: Acute (2) Thrombocytopenia Assessment & Plan: mild ? medication related Status: Acute
[2018-09-13] MEDS: Vitamins A & D Oint UD Foilpak TOP SCH ×6 (00:30→20:00)
[2018-09-13] MEDS: Meropenem 500 MG in Sodium Chloride 0.9% 100 ML IVPB SCH ×2 (04:16→16:44)
[2018-09-13] MEDS: Multivitamin Vitamin B Complex (Nephro-Vite) Tab PO SCH (08:21)
[2018-09-13] MEDS: Potassium Chloride 20 mEq ER Tab PO SCH ×2 (09:31→17:06)
[2018-09-13] MEDS: Pantoprazole 40 mg EC Tab PO SCH (09:31)
[2018-09-13] MEDS: Calcium-Vit D 500 mg-200 Units Tab UD PO SCH ×2 (09:31→17:06)
[2018-09-13] MEDS: Epoetin Alfa 10,000 unit/ml Dialysis SC SCH (09:34)
[2018-09-13] MEDS: Nystatin 100,000 Units/gm Topical Pow(15 gm) TOP SCH ×3 (09:43→17:07)
--- NOTE | 2018-09-13 11:54 | CP.PCM.PN ---
Subjective - Date & Time of Evaluation Date of Evaluation: 09/13/18 Time of Evaluation: 12:45 - Subjective Subjective: clinically same Objective - Vital Signs/Intake and Output Vital Signs (last 24 hours): Temp Pulse Resp BP Pulse Ox 98.2 F 108 H 20 126/73 99 09/13/18 08:00 09/13/18 08:00 09/13/18 08:00 09/13/18 09:32 09/13/18 08:00 Intake and Output: 09/13/18 09/13/18 06:59 18:59 Intake Total 450 Output Total 550 Balance -100 - Medications Medications: Current Medications Calcium/Vitamin D (Oyster Shell Calcium/Vitamin D 500 Mg-200 Iu) 1 tab PO BID [facility] Last Admin: 09/13/18 09:31 Dose: 1 tab Epoetin Morales (Procrit) 10,000 unit SC TTS [facility] Last Admin: 09/13/18 09:34 Dose: 10,000 unit Ergocalciferol (Drisdol 50,000 Intl Units Cap) 1 cap PO Q7D [facility] Last Admin: 09/08/18 13:53 Dose: 1 cap Ferrous Gluconate (Fergon) 324 mg PO TID [facility] Last Admin: 09/13/18 09:31 Dose: 324 mg Furosemide (Lasix) 40 mg IVP BID [facility] Last Admin: 09/13/18 09:32 Dose: 40 mg Meropenem 500 mg/ Sodium (Chloride) 100 mls @ 100 mls/hr IVPB Q12H [facility]; Protocol Last Admin: 09/13/18 04:16 Dose: 100 mls/hr Metoprolol Tartrate (Lopressor) 25 mg PO 0800,1700 [facility] Last Admin: 09/13/18 08:23 Dose: 25 mg Nystatin (Nystop Topical Powder) 0 gm TOP TID [facility] Last Admin: 09/13/18 09:43 Dose: 1 applic Pantoprazole Sodium (Protonix Ec Tab) 40 mg PO DAILY [facility] Last Admin: 09/13/18 09:31 Dose: 40 mg Potassium Chloride (K-Dur 20 Meq Er Tab) 20 meq PO BID [facility] Last Admin: 09/13/18 09:31 Dose: 20 meq Vitamin A (Vitamin A & D Oint Ud Foilpak) 0.5 ea TOP Q4 [facility] Last Admin: 11/20/18 08:21 Dose: 0.5 ea Vitamin B Complex/Vit C/Folic Acid (Nephro-Fortino) 1 tab PO 0800 [facility] Last Admin: 09/13/18 08:21 Dose: 1 tab - Labs Labs: 09/12/18 06:05 09/12/18 06:03 PT 25.5 SECONDS (9.7-12.2) H 08/31/18 20:08 INR 2.3 08/31/18 20:08 APTT 34 SECONDS (21-34) 08/31/18 12:32 - Constitutional Appears: Well - Head Exam Head Exam: ATRAUMATIC, NORMAL INSPECTION, NORMOCEPHALIC - Eye Exam Eye Exam: EOMI, Normal appearance, PERRL Pupil Exam: NORMAL ACCOMODATION, PERRL - ENT Exam ENT Exam: Mucous Membranes Moist, Normal Exam - Neck Exam Neck Exam: Full ROM, Normal Inspection. absent: Lymphadenopathy - Respiratory Exam Respiratory Exam: Decreased Breath Sounds - Cardiovascular Exam Cardiovascular Exam: REGULAR RHYTHM, +S1, +S2 - GI/Abdominal Exam GI & Abdominal Exam: Soft, Diminished Bowel Sounds - Rectal Exam Rectal Exam: Deferred
--- NOTE | 2018-09-13 12:19 | CP.PCM.PN ---
Subjective - Date & Time of Evaluation Date of Evaluation: 09/13/18 Time of Evaluation: 12:18 - Subjective Subjective: Nephrology Consultation Note Assessment: stable Acute Kidney Injury (N17.9) likely due to ATN and pre-renal state: recent work up for GN neg; resolving HAGMA with ketonemia likely due to ROBIN and ketoacidosis hypovolemic hyponatremia, Hypokalemia, hypocalcemia and hypomagnesemia likely due to GI (due to diarrhoea) and renal loss (was on lasix) with limited oral intake severe hypoalbuminemia with malnutration with anasarca Hypertensive Chronic Kidney Disease (I12.9) Chronic Kidney Disease (N18.9) Stage 3 with 55 mg albuminuria Anemia acute on chronic severe Mitral regurg with infective endocarditis, depression/Anxiety Plan Maintain hemodynamics stable. Avoid hypotension. Patient not on ACEI/ARB due to recent ROBIN Monitor Input/Output, daily weights and renal function with basic metabolic panel started Fe, MVI, and weekly Vit D, OScal D: resume as pt now able to take PO c/w bicarb supplements daily.continue with lasix 40 bid but changed to IVP as edema still persisting PRBC as needed. had transfusion 09/02/18. on ESAs as epogen supplement lytes as needed stopped bicarb Dose meds/antibiotics for improved GFR. Glycemic control Further work up for as per primary team Thanks for allowing me to participate in care of your patient. Will follow patient with you. Please call if any Qs. had d/w team Dr Heriberto Hernandez Office: [phone] reason for consult; ROBIN and electrolytes abnormalities HPI: pt is a 62 F with hx of HTN, depression who was recently admitted to hospital with ROBIN required few session of HD then improved with cr 1.2, also with infective endocarditis with severe MR but pt refused surgery and decided only for IV antibiotics treatments came as was feeling weak, found to have severe electrolytes depletion and renal consult for ROBIN. pt feels nervous. reports decreased oral intake and c.o loose stool besides that not providing much hx nor recent Iv contrast. noted low BP ROS: denies SOB, chest pain. feels better Physical Examination: General Appearance: comfortable, in no acute respiratory distress, better appearing but debilitated Vitals reviewed and noted as below Head; Atraumatic, normocephalic ENT: WNL EYES: Pupils are equal, round and reactive to light accommodation. Eye muscles and extraocular movement intact. Sclera is anicteric. Neck; supple no lymphadenopathy, no thyromegaly or bruit Lungs: Normal respiratory rate/effort. Breath sounds b/l decreased at bases Heart: normal rate. s1s2 normal. No rub or gallop. SM + at apex/LSB Extremities: 2-3+ edema with anasarca. No varicose veins Neurological: Patient is alert awake oriented follow commands Skin: Warm and dry. Normal turgor. Palpitation: Normal elasticity for age. skin echymoses + rash in lower extremity with blisetring and desquamation changes upper ext Abdomen: Abdomen is soft. Bowel sounds +. There is no abdominal tenderness, no guarding/rigidity no organomegaly Psych: lack insight. anxious MSK: no joint tenderness or swelling. Digits and nails normal, no deformity : kidney or bladder not palpable Labs/imaging reviewed. Past medical history, past surgical history, family history, social history, allergy reviewed and noted as below Family hx: no hx of CKD. Rest non-contributory work up: Hep B/C/HIV neg renal imaging: unremarkable A1c 5.5% UA no protein 1+ blood LINDSEY/ANCA neg, K/L ratio WNLTSAT 9% ferritin 221 Vit D <12.8 PTH 268 FENa 0.3% TTKG 15 Objective - Vital Signs/Intake and Output Vital Signs (last 24 hours): Temp Pulse Resp BP Pulse Ox 98.2 F 108 H 20 126/73 99 09/13/18 08:00 09/13/18 08:00 09/13/18 08:00 09/13/18 09:32 09/13/18 08:00 Intake and Output: 09/13/18 09/13/18 06:59 18:59 Intake Total 450 Output Total 550 Balance -100 - Medications Medications: Current Medications Calcium/Vitamin D (Oyster Shell Calcium/Vitamin D 500 Mg-200 Iu) 1 tab PO BID [facility] Last Admin: 09/13/18 09:31 Dose: 1 tab Epoetin Morales (Procrit) 10,000 unit SC TTS [facility] Last Admin: 09/13/18 09:34 Dose: 10,000 unit Ergocalciferol (Drisdol 50,000 Intl Units Cap) 1 cap PO Q7D [facility] Last Admin: 09/08/18 13:53 Dose: 1 cap Ferrous Gluconate (Fergon) 324 mg PO TID [facility] Last Admin: 09/13/18 09:31 Dose: 324 mg Furosemide (Lasix) 40 mg IVP BID [facility] Last Admin: 09/13/18 09:32 Dose: 40 mg Meropenem 500 mg/ Sodium (Chloride) 100 mls @ 100 mls/hr IVPB Q12H [facility]; Protocol Last Admin: 09/13/18 04:16 Dose: 100 mls/hr Metoprolol Tartrate (Lopressor) 25 mg PO 0800,1700 [facility] Last Admin: 09/13/18 08:23 Dose: 25 mg Nystatin (Nystop Topical Powder) 0 gm TOP TID [facility] Last Admin: 09/13/18 09:43 Dose: 1 applic Pantoprazole Sodium (Protonix Ec Tab) 40 mg PO DAILY [facility] Last Admin: 09/13/18 09:31 Dose: 40 mg Potassium Chloride (K-Dur 20 Meq Er Tab) 20 meq PO BID [facility] Last Admin: 09/13/18 09:31 Dose: 20 meq Vitamin A (Vitamin A & D Oint Ud Foilpak) 0.5 ea TOP Q4 [facility] Last Admin: 09/13/18 08:21 Dose: 0.5 ea Vitamin B Complex/Vit C/Folic Acid (Nephro-Fortino) 1 tab PO 0800 [facility] Last Admin: 09/13/18 08:21 Dose: 1 tab - Labs Labs: 09/12/18 06:05 09/12/18 06:03 PT 25.5 SECONDS (9.7-12.2) H 08/31/18 20:08 INR 2.3 08/31/18 20:08 APTT 34 SECONDS (21-34) 08/31/18 12:32
--- NOTE | 2018-09-13 12:45 | CP.PCM.PN ---
Subjective - Date & Time of Evaluation Date of Evaluation: 09/13/18 Time of Evaluation: 09:00 - Subjective Subjective: still edematous rx renewed Objective - Vital Signs/Intake and Output Vital Signs (last 24 hours): Temp Pulse Resp BP Pulse Ox 98.2 F 108 H 20 126/73 99 09/13/18 08:00 09/13/18 08:00 09/13/18 08:00 09/13/18 09:32 09/13/18 08:00 Intake and Output: 09/13/18 09/13/18 06:59 18:59 Intake Total 450 Output Total 550 Balance -100 - Medications Medications: Current Medications Calcium/Vitamin D (Oyster Shell Calcium/Vitamin D 500 Mg-200 Iu) 1 tab PO BID [facility] Last Admin: 09/13/18 09:31 Dose: 1 tab Epoetin Morales (Procrit) 10,000 unit SC TTS [facility] Last Admin: 09/13/18 09:34 Dose: 10,000 unit Ergocalciferol (Drisdol 50,000 Intl Units Cap) 1 cap PO Q7D [facility] Last Admin: 09/08/18 13:53 Dose: 1 cap Ferrous Gluconate (Fergon) 324 mg PO TID [facility] Last Admin: 09/13/18 09:31 Dose: 324 mg Furosemide (Lasix) 40 mg IVP BID [facility] Last Admin: 09/13/18 09:32 Dose: 40 mg Meropenem 500 mg/ Sodium (Chloride) 100 mls @ 100 mls/hr IVPB Q12H [facility]; Protocol Last Admin: 09/13/18 04:16 Dose: 100 mls/hr Metoprolol Tartrate (Lopressor) 25 mg PO 0800,1700 [facility] Last Admin: 09/13/18 08:23 Dose: 25 mg Nystatin (Nystop Topical Powder) 0 gm TOP TID [facility] Last Admin: 09/13/18 09:43 Dose: 1 applic Pantoprazole Sodium (Protonix Ec Tab) 40 mg PO DAILY [facility] Last Admin: 09/13/18 09:31 Dose: 40 mg Potassium Chloride (K-Dur 20 Meq Er Tab) 20 meq PO BID [facility] Last Admin: 09/13/18 09:31 Dose: 20 meq Vitamin A (Vitamin A & D Oint Ud Foilpak) 0.5 ea TOP Q4 [facility] Last Admin: 09/13/18 12:24 Dose: 0.5 ea Vitamin B Complex/Vit C/Folic Acid (Nephro-Fortino) 1 tab PO 0800 [facility] Last Admin: 09/13/18 08:21 Dose: 1 tab - Labs Labs: 09/12/18 06:05 09/12/18 06:03 PT 25.5 SECONDS (9.7-12.2) H 08/31/18 20:08 INR 2.3 08/31/18 20:08 APTT 34 SECONDS (21-34) 08/31/18 12:32 - Constitutional Appears: Confused, Cachectic, Chronically Ill - Head Exam Head Exam: NORMOCEPHALIC - Eye Exam Eye Exam: absent: Scleral icterus - ENT Exam ENT Exam: Mucous Membranes Dry - Neck Exam Neck Exam: absent: Lymphadenopathy - Respiratory Exam Respiratory Exam: Decreased Breath Sounds - Cardiovascular Exam Cardiovascular Exam: REGULAR RHYTHM - GI/Abdominal Exam GI & Abdominal Exam: Distended, Soft - Rectal Exam Rectal Exam: Deferred - Exam Exam: NORMAL INSPECTION - Extremities Exam Extremities Exam: Pedal Edema - Back Exam Back Exam: absent: CVA tenderness (L), CVA tenderness (R) - Neurological Exam Neurological Exam: Altered Assessment and Plan (1) Leukocytosis Status: Acute (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
--- NOTE | 2018-09-13 14:45 | CP.PCM.PN ---
Subjective - Date & Time of Evaluation Date of Evaluation: 09/13/18 Time of Evaluation: 13:00 - Subjective Subjective: Has some back pain. Objective - Vital Signs/Intake and Output Vital Signs (last 24 hours): Temp Pulse Resp BP Pulse Ox 98 F 113 H 17 131/82 97 09/13/18 12:00 09/13/18 12:00 09/13/18 12:00 09/13/18 12:00 09/13/18 12:00 Intake and Output: 09/13/18 09/13/18 06:59 18:59 Intake Total 450 480 Output Total 550 Balance -100 480 - Medications Medications: Current Medications Calcium/Vitamin D (Oyster Shell Calcium/Vitamin D 500 Mg-200 Iu) 1 tab PO BID [facility] Last Admin: 09/13/18 09:31 Dose: 1 tab Epoetin Morales (Procrit) 10,000 unit SC TTS [facility] Last Admin: 09/13/18 09:34 Dose: 10,000 unit Ergocalciferol (Drisdol 50,000 Intl Units Cap) 1 cap PO Q7D [facility] Last Admin: 09/08/18 13:53 Dose: 1 cap Ferrous Gluconate (Fergon) 324 mg PO TID [facility] Last Admin: 09/13/18 13:57 Dose: 324 mg Furosemide (Lasix) 40 mg IVP BID [facility] Last Admin: 09/13/18 09:32 Dose: 40 mg Meropenem 500 mg/ Sodium (Chloride) 100 mls @ 100 mls/hr IVPB Q12H [facility]; Protocol Last Admin: 09/13/18 04:16 Dose: 100 mls/hr Metoprolol Tartrate (Lopressor) 25 mg PO 0800,1700 [facility] Last Admin: 09/13/18 08:23 Dose: 25 mg Nystatin (Nystop Topical Powder) 0 gm TOP TID [facility] Last Admin: 09/13/18 13:58 Dose: 1 applic Pantoprazole Sodium (Protonix Ec Tab) 40 mg PO DAILY [facility] Last Admin: 09/13/18 09:31 Dose: 40 mg Potassium Chloride (K-Dur 20 Meq Er Tab) 20 meq PO BID [facility] Last Admin: 09/13/18 09:31 Dose: 20 meq Vitamin A (Vitamin A & D Oint Ud Foilpak) 0.5 ea TOP Q4 [facility] Last Admin: 09/13/18 12:24 Dose: 0.5 ea Vitamin B Complex/Vit C/Folic Acid (Nephro-Fortino) 1 tab PO 0800 [facility] Last Admin: 09/13/18 08:21 Dose: 1 tab - Labs Labs: 09/12/18 06:05 09/12/18 06:03 PT 25.5 SECONDS (9.7-12.2) H 08/31/18 20:08 INR 2.3 08/31/18 20:08 APTT 34 SECONDS (21-34) 08/31/18 12:32 - Head Exam Head Exam: ATRAUMATIC - Eye Exam Eye Exam: Normal appearance - ENT Exam ENT Exam: Mucous Membranes Dry - Respiratory Exam Respiratory Exam: NORMAL BREATHING PATTERN - Cardiovascular Exam Cardiovascular Exam: +S1, +S2 - GI/Abdominal Exam GI & Abdominal Exam: Normal Bowel Sounds Assessment and Plan (1) Anemia Assessment & Plan: prior work up consistent with anemia of chronic disease anemia of CKD - KESHAWN per renal transfusion support PRN no iron, b12, folate deficiency Status: Acute (2) Thrombocytopenia Assessment & Plan: resolving Status: Acute
[2018-09-14] MEDS: Vitamins A & D Oint UD Foilpak TOP SCH ×6 (00:45→20:44)
[2018-09-14] MEDS: Meropenem 500 MG in Sodium Chloride 0.9% 100 ML IVPB SCH ×2 (04:49→17:53)
[2018-09-14 06:29] LABS: BASO % 0.3 % (0.0-2.0); EOS % 0.4 % (0.0-4.0); HEMOGLOBIN 7.7 g/dL (11.0-16.0); LYMPH % 27.6 % (20.0-40.0); MEAN CELL VOLUME 97.6 fL (81.0-99.0); MEAN CORPUSCULAR HEMOGLOBIN 30.8 pg (27.0-31.0); MEAN CORPUSCULAR HGB CONC 31.6 g/dL (33.0-37.0); MEAN PLATELET VOLUME 9.5 fL (7.2-11.7); MONO # 0.3 K/uL (0.0-0.8); MONO % 2.6 % (0.0-10.0); NEUT # 7.6 K/uL (1.8-7.0); NEUT % 69.1 % (50.0-75.0); NRBC % 0.1 % (0.0-2.0); RBC 2.51 Mil/uL (3.80-5.20); RED CELL DISTRIBUTION WIDTH 20.2 % (11.5-14.5)
[2018-09-14 06:36] LABS: ALB/GLOB RATIO 0.7 (1.0-2.1); ALT/SGPT 18 U/L (9-52); AST/SGOT 17 U/L (14-36); BLOOD UREA NITROGEN 36 mg/dL (7-17); CALCIUM 7.8 mg/dl (8.6-10.4); GFR NON-AFRICAN AMERICAN 56
[2018-09-14] MEDS: Multivitamin Vitamin B Complex (Nephro-Vite) Tab PO SCH (08:48)
[2018-09-14] MEDS: Pantoprazole 40 mg EC Tab PO SCH (10:40)
[2018-09-14] MEDS: Potassium Chloride 20 mEq ER Tab PO SCH ×2 (10:40→17:53)
[2018-09-14] MEDS: Calcium-Vit D 500 mg-200 Units Tab UD PO SCH ×2 (10:45→17:53)
[2018-09-14] MEDS: Nystatin 100,000 Units/gm Topical Pow(15 gm) TOP SCH ×3 (10:47→17:53)
--- NOTE | 2018-09-14 16:01 | CP.PCM.PN ---
Subjective - Date & Time of Evaluation Date of Evaluation: 09/14/18 Time of Evaluation: 10:00 - Subjective Subjective: Patient awake and conscious Vital signs stable Objective - Vital Signs/Intake and Output Vital Signs (last 24 hours): Temp Pulse Resp BP Pulse Ox 98.1 F 113 H 16 136/74 100 09/14/18 08:00 09/14/18 04:00 09/14/18 04:00 09/14/18 10:40 09/14/18 04:00 Intake and Output: 09/14/18 09/14/18 06:59 18:59 Intake Total 490 Output Total 700 Balance -210 - Medications Medications: Current Medications Acetaminophen (Tylenol 325mg Tab) 650 mg PO Q6 PRN PRN Reason: pain Calcium/Vitamin D (Oyster Shell Calcium/Vitamin D 500 Mg-200 Iu) 1 tab PO BID [facility] Last Admin: 09/14/18 10:45 Dose: 1 tab Epoetin Morales (Procrit) 10,000 unit SC TTS [facility] Last Admin: 09/13/18 09:34 Dose: 10,000 unit Ergocalciferol (Drisdol 50,000 Intl Units Cap) 1 cap PO Q7D [facility] Last Admin: 09/08/18 13:53 Dose: 1 cap Ferrous Gluconate (Fergon) 324 mg PO TID [facility] Last Admin: 09/14/18 10:41 Dose: 324 mg Furosemide (Lasix) 40 mg IVP BID [facility] Last Admin: 09/14/18 10:40 Dose: 40 mg Meropenem 500 mg/ Sodium (Chloride) 100 mls @ 100 mls/hr IVPB Q12H [facility]; Protocol Last Admin: 09/14/18 04:49 Dose: 100 mls/hr Metoprolol Tartrate (Lopressor) 25 mg PO 0800,1700 [facility] Last Admin: 09/14/18 08:48 Dose: 25 mg Nystatin (Nystop Topical Powder) 0 gm TOP TID [facility] Last Admin: 09/14/18 10:47 Dose: 1 applic Ondansetron HCl (Zofran Inj) 4 mg IVP Q6H PRN PRN Reason: nausea Last Admin: 09/13/18 17:00 Dose: 4 mg Pantoprazole Sodium (Protonix Ec Tab) 40 mg PO DAILY [facility] Last Admin: 09/14/18 10:40 Dose: 40 mg Potassium Chloride (K-Dur 20 Meq Er Tab) 20 meq PO BID [facility] Last Admin: 09/14/18 10:40 Dose: 20 meq Vitamin A (Vitamin A & D Oint Ud Foilpak) 0.5 ea TOP Q4 [facility] Last Admin: 09/14/18 08:48 Dose: 0.5 ea Vitamin B Complex/Vit C/Folic Acid (Nephro-Fortino) 1 tab PO 0800 [facility] Last Admin: 09/14/18 08:48 Dose: 1 tab - Labs Labs: 09/14/18 05:52 09/14/18 05:53 PT 25.5 SECONDS (9.7-12.2) H 08/31/18 20:08 INR 2.3 08/31/18 20:08 APTT 34 SECONDS (21-34) 08/31/18 12:32 - Constitutional Appears: No Acute Distress - Eye Exam Eye Exam: Conjunctival injection - ENT Exam ENT Exam: Mucous Membranes Moist - Respiratory Exam Respiratory Exam: NORMAL BREATHING PATTERN. absent: Chest Wall Tenderness - GI/Abdominal Exam GI & Abdominal Exam: Soft, Normal Bowel Sounds - Extremities Exam Extremities Exam: absent: Calf Tenderness - Back Exam Back Exam: absent: CVA tenderness (L), CVA tenderness (R) - Neurological Exam Neurological Exam: Alert - Psychiatric Exam Psychiatric exam: Normal Affect - Skin Skin Exam: absent: Cyanosis Assessment and Plan - Assessment and Plan (Free Text) Assessment: Acute Kidney Injury (N17.9) likely due to ATN and pre-renal state: recent work up for GN neg; resolving HAGMA with ketonemia likely due to ROBIN and ketoacidosis hypovolemic hyponatremia, Hypokalemia, hypocalcemia and hypomagnesemia likely due to GI (due to diarrhoea) and renal loss (was on lasix) with limited oral intake severe hypoalbuminemia with malnutration with anasarca Hypertensive Chronic Kidney Disease (I12.9) Chronic Kidney Disease (N18.9) Stage 3 with 55 mg albuminuria Anemia acute on chronic severe Mitral regurg with infective endocarditis, depression/Anxiety The plan Kidney function improving serum creatinine back to normal As per primary team
--- NOTE | 2018-09-14 22:28 | CP.PCM.PN ---
Subjective - Date & Time of Evaluation Date of Evaluation: 09/14/18 Time of Evaluation: 06:10 - Subjective Subjective: clinically same Objective - Vital Signs/Intake and Output Vital Signs (last 24 hours): Temp Pulse Resp BP Pulse Ox 98.2 F 98 H 18 125/75 98 09/14/18 19:15 09/14/18 19:15 09/14/18 19:15 09/14/18 19:15 09/14/18 19:15 Intake and Output: 09/14/18 09/15/18 18:59 06:59 Intake Total 500 Output Total 700 Balance -200 - Medications Medications: Current Medications Acetaminophen (Tylenol 325mg Tab) 650 mg PO Q6 PRN PRN Reason: pain Calcium/Vitamin D (Oyster Shell Calcium/Vitamin D 500 Mg-200 Iu) 1 tab PO BID [facility] Last Admin: 09/14/18 17:53 Dose: 1 tab Epoetin Morales (Procrit) 10,000 unit SC TTS [facility] Last Admin: 09/13/18 09:34 Dose: 10,000 unit Ergocalciferol (Drisdol 50,000 Intl Units Cap) 1 cap PO Q7D [facility] Last Admin: 09/08/18 13:53 Dose: 1 cap Ferrous Gluconate (Fergon) 324 mg PO TID [facility] Last Admin: 09/14/18 17:54 Dose: 324 mg Furosemide (Lasix) 40 mg IVP BID [facility] Last Admin: 09/14/18 17:53 Dose: 40 mg Meropenem 500 mg/ Sodium (Chloride) 100 mls @ 100 mls/hr IVPB Q12H [facility]; Protocol Last Admin: 09/14/18 17:53 Dose: 100 mls/hr Metoprolol Tartrate (Lopressor) 25 mg PO 0800,1700 [facility] Last Admin: 09/14/18 17:53 Dose: 25 mg Nystatin (Nystop Topical Powder) 0 gm TOP TID [facility] Last Admin: 09/14/18 17:53 Dose: 1 applic Ondansetron HCl (Zofran Inj) 4 mg IVP Q6H PRN PRN Reason: nausea Last Admin: 09/13/18 17:00 Dose: 4 mg Pantoprazole Sodium (Protonix Ec Tab) 40 mg PO DAILY [facility] Last Admin: 09/14/18 10:40 Dose: 40 mg Potassium Chloride (K-Dur 20 Meq Er Tab) 20 meq PO BID [facility] Last Admin: 09/14/18 17:53 Dose: 20 meq Vitamin A (Vitamin A & D Oint Ud Foilpak) 0.5 ea TOP Q4 [facility] Last Admin: 09/14/18 20:44 Dose: 0.5 ea Vitamin B Complex/Vit C/Folic Acid (Nephro-Fortino) 1 tab PO 0800 [facility] Last Admin: 09/14/18 08:48 Dose: 1 tab - Labs Labs: 09/14/18 05:52 09/14/18 05:53 PT 25.5 SECONDS (9.7-12.2) H 08/31/18 20:08 INR 2.3 08/31/18 20:08 APTT 34 SECONDS (21-34) 08/31/18 12:32 - Constitutional Appears: Well - Head Exam Head Exam: ATRAUMATIC, NORMAL INSPECTION, NORMOCEPHALIC - Eye Exam Eye Exam: EOMI, Normal appearance, PERRL Pupil Exam: NORMAL ACCOMODATION, PERRL - ENT Exam ENT Exam: Mucous Membranes Moist, Normal Exam - Neck Exam Neck Exam: Full ROM, Normal Inspection. absent: Lymphadenopathy - Respiratory Exam Respiratory Exam: Decreased Breath Sounds - Cardiovascular Exam Cardiovascular Exam: REGULAR RHYTHM, +S1, +S2 - GI/Abdominal Exam GI & Abdominal Exam: Soft, Diminished Bowel Sounds - Rectal Exam Rectal Exam: Deferred
[2018-09-15] MEDS: Vitamins A & D Oint UD Foilpak TOP SCH ×5 (01:02→18:07)
[2018-09-15] MEDS: Meropenem 500 MG in Sodium Chloride 0.9% 100 ML IVPB SCH ×2 (05:38→18:40)
[2018-09-15] MEDS: Multivitamin Vitamin B Complex (Nephro-Vite) Tab PO SCH (09:09)
[2018-09-15] MEDS: Calcium-Vit D 500 mg-200 Units Tab UD PO SCH ×2 (09:10→18:07)
[2018-09-15] MEDS: Epoetin Alfa 10,000 unit/ml Dialysis SC SCH (09:10)
[2018-09-15] MEDS: Potassium Chloride 20 mEq ER Tab PO SCH ×2 (09:10→18:07)
[2018-09-15] MEDS: Pantoprazole 40 mg EC Tab PO SCH (09:10)
[2018-09-15] MEDS: Nystatin 100,000 Units/gm Topical Pow(15 gm) TOP SCH ×3 (09:12→18:06)
[2018-09-15] MEDS ORDERED: Tramadol 25 mg PO ONE (13:30)
[2018-09-15] MEDS: Ergocalciferol 50,000 Intl Units Cap PO SCH (13:41)
--- NOTE | 2018-09-15 19:39 | CP.PCM.PN ---
Subjective - Date & Time of Evaluation Date of Evaluation: 09/15/18 Time of Evaluation: 09:15 - Subjective Subjective: clinically same Objective - Vital Signs/Intake and Output Vital Signs (last 24 hours): Temp Pulse Resp BP Pulse Ox 98.0 F 91 H 20 130/81 96 09/15/18 15:00 09/15/18 15:00 09/15/18 15:00 09/15/18 18:07 09/15/18 15:00 Intake and Output: 09/15/18 09/16/18 18:59 06:59 Intake Total 700 Output Total 575 Balance 125 - Medications Medications: Current Medications Acetaminophen (Tylenol 325mg Tab) 650 mg PO Q6 PRN PRN Reason: pain Last Admin: 09/15/18 18:16 Dose: 650 mg Calcium/Vitamin D (Oyster Shell Calcium/Vitamin D 500 Mg-200 Iu) 1 tab PO BID [facility] Last Admin: 09/15/18 18:07 Dose: 1 tab Enoxaparin Sodium (Lovenox) 40 mg SC DAILY [facility] Epoetin Morales (Procrit) 10,000 unit SC TTS [facility] Last Admin: 09/15/18 09:10 Dose: 10,000 unit Ergocalciferol (Drisdol 50,000 Intl Units Cap) 1 cap PO Q7D [facility] Last Admin: 09/15/18 13:41 Dose: 1 cap Ferrous Gluconate (Fergon) 324 mg PO TID [facility] Last Admin: 09/15/18 18:07 Dose: 324 mg Furosemide (Lasix) 40 mg IVP BID [facility] Last Admin: 09/15/18 18:07 Dose: 40 mg Meropenem 500 mg/ Sodium (Chloride) 100 mls @ 100 mls/hr IVPB Q12H [facility]; Protocol Last Admin: 09/15/18 18:40 Dose: 100 mls/hr Metoprolol Tartrate (Lopressor) 25 mg PO 0800,1700 [facility] Last Admin: 09/15/18 18:07 Dose: 25 mg Nystatin (Nystop Topical Powder) 0 gm TOP TID [facility] Last Admin: 09/15/18 18:06 Dose: 1 applic Ondansetron HCl (Zofran Inj) 4 mg IVP Q6H PRN PRN Reason: nausea Last Admin: 09/13/18 17:00 Dose: 4 mg Pantoprazole Sodium (Protonix Ec Tab) 40 mg PO DAILY [facility] Last Admin: 09/15/18 09:10 Dose: 40 mg Potassium Chloride (K-Dur 20 Meq Er Tab) 20 meq PO BID [facility] Last Admin: 09/15/18 18:07 Dose: 20 meq Vitamin B Complex/Vit C/Folic Acid (Nephro-Fortino) 1 tab PO 0800 [facility] Last Admin: 09/15/18 09:09 Dose: 1 tab - Labs Labs: 09/14/18 05:52 09/14/18 05:53 PT 25.5 SECONDS (9.7-12.2) H 08/31/18 20:08 INR 2.3 08/31/18 20:08 APTT 34 SECONDS (21-34) 08/31/18 12:32 - Constitutional Appears: Well - Head Exam Head Exam: ATRAUMATIC, NORMAL INSPECTION, NORMOCEPHALIC - Eye Exam Eye Exam: EOMI, Normal appearance, PERRL Pupil Exam: NORMAL ACCOMODATION, PERRL - ENT Exam ENT Exam: Mucous Membranes Moist, Normal Exam - Neck Exam Neck Exam: Full ROM, Normal Inspection. absent: Lymphadenopathy - Respiratory Exam Respiratory Exam: Decreased Breath Sounds - Cardiovascular Exam Cardiovascular Exam: REGULAR RHYTHM, +S1, +S2 - GI/Abdominal Exam GI & Abdominal Exam: Soft, Diminished Bowel Sounds - Rectal Exam Rectal Exam: Deferred
[2018-09-16] MEDS: Meropenem 500 MG in Sodium Chloride 0.9% 100 ML IVPB SCH ×2 (04:26→18:00)
[2018-09-16] MEDS: Pantoprazole 40 mg EC Tab PO SCH (09:13)
[2018-09-16] MEDS: Calcium-Vit D 500 mg-200 Units Tab UD PO SCH ×2 (09:14→17:59)
[2018-09-16] MEDS: Potassium Chloride 20 mEq ER Tab PO SCH ×2 (09:14→17:59)
[2018-09-16] MEDS: Multivitamin Vitamin B Complex (Nephro-Vite) Tab PO SCH (09:15)
[2018-09-16] MEDS: Enoxaparin 40 mg Syringe SC SCH (09:15)
[2018-09-16] MEDS: Nystatin 100,000 Units/gm Topical Pow(15 gm) TOP SCH ×3 (09:16→18:09)
[2018-09-16] MEDS: Tramadol 25 mg PO PRN (10:27)
--- NOTE | 2018-09-16 13:29 | CP.PCM.PN ---
Subjective - Date & Time of Evaluation Date of Evaluation: 09/16/18 Time of Evaluation: 13:26 - Subjective Subjective: Nephrology Consultation Note Assessment: stable Acute Kidney Injury (N17.9) likely due to ATN and pre-renal state: recent work up for GN neg; resolved HAGMA with ketonemia likely due to ROBIN and ketoacidosis hypovolemic hyponatremia, Hypokalemia, hypocalcemia and hypomagnesemia likely due to GI (due to diarrhoea) and renal loss (was on lasix) with limited oral intake severe hypoalbuminemia with malnutration with anasarca Hypertensive Chronic Kidney Disease (I12.9) Chronic Kidney Disease (N18.9) Stage 3 with 55 mg albuminuria Anemia acute on chronic severe Mitral regurg with infective endocarditis, depression/Anxiety shingles rash Plan Maintain hemodynamics stable. Avoid hypotension. Patient not on ACEI/ARB due to recent ROBIN, will add low dose Monitor Input/Output, daily weights and renal function with basic metabolic panel started Fe, MVI, and weekly Vit D, OScal D continue with lasix PRBC as needed. had transfusion 09/02/18. since ROBIN resolved, will d/c epogen supplement lytes as needed please consider to add valtrex and meds to control neuropathic pain Dose meds/antibiotics for improved GFR. Glycemic control Further work up for as per primary team Thanks for allowing me to participate in care of your patient. Will follow patient with you. Please call if any Qs. had d/w team Dr Heriberto Hernandez Office: [phone] reason for consult; ROBIN and electrolytes abnormalities HPI: pt is a 62 F with hx of HTN, depression who was recently admitted to hospital with ROBIN required few session of HD then improved with cr 1.2, also with infective endocarditis with severe MR but pt refused surgery and decided only for IV antibiotics treatments came as was feeling weak, found to have severe electrolytes depletion and renal consult for ROBIN. pt feels nervous. reports decreased oral intake and c.o loose stool besides that not providing much hx nor recent Iv contrast. noted low BP ROS: denies SOB, chest pain. feels better except Rt abdomen pain Physical Examination: General Appearance: comfortable, in no acute respiratory distress, better appearing but debilitated Vitals reviewed and noted as below Head; Atraumatic, normocephalic ENT: WNL EYES: Pupils are equal, round and reactive to light accommodation. Eye muscles and extraocular movement intact. Sclera is anicteric. Neck; supple no lymphadenopathy, no thyromegaly or bruit Lungs: Normal respiratory rate/effort. Breath sounds b/l decreased at bases Heart: normal rate. s1s2 normal. No rub or gallop. SM + at apex/LSB Extremities: 2+ edema with anasarca. No varicose veins Neurological: Patient is alert awake oriented follow commands Skin: Warm and dry. Normal turgor. Palpitation: Normal elasticity for age. harden gles rash RUQ dermatome Abdomen: Abdomen is soft. Bowel sounds +. There is no abdominal tenderness, no guarding/rigidity no organomegaly Psych: lack insight. anxious MSK: no joint tenderness or swelling. Digits and nails normal, no deformity : kidney or bladder not palpable Labs/imaging reviewed. Past medical history, past surgical history, family history, social history, allergy reviewed and noted as below Family hx: no hx of CKD. Rest non-contributory work up: Hep B/C/HIV neg renal imaging: unremarkable A1c 5.5% UA no protein 1+ blood LINDSEY/ANCA neg, K/L ratio WNLTSAT 9% ferritin 221 Vit D <12.8 PTH 268 FENa 0.3% TTKG 15 Objective - Vital Signs/Intake and Output Vital Signs (last 24 hours): Temp Pulse Resp BP Pulse Ox 98.3 F 95 H 18 163/90 H 96 09/16/18 07:55 09/16/18 07:55 09/16/18 07:55 09/16/18 09:14 09/16/18 07:55 Intake and Output: 09/16/18 09/16/18 06:59 18:59 Intake Total 700 Output Total 500 475 Balance 200 -475 - Medications Medications: Current Medications Acetaminophen (Tylenol 325mg Tab) 650 mg PO Q6 PRN PRN Reason: pain Last Admin: 09/16/18 09:15 Dose: 650 mg Calcium/Vitamin D (Oyster Shell Calcium/Vitamin D 500 Mg-200 Iu) 1 tab PO BID [facility] Last Admin: 09/16/18 09:14 Dose: 1 tab Enoxaparin Sodium (Lovenox) 40 mg SC DAILY [facility] Last Admin: 09/16/18 09:15 Dose: 40 mg Ergocalciferol (Drisdol 50,000 Intl Units Cap) 1 cap PO Q7D [facility] Last Admin: 09/15/18 13:41 Dose: 1 cap Ferrous Gluconate (Fergon) 324 mg PO TID [facility] Last Admin: 09/16/18 13:13 Dose: 324 mg Fluconazole (Diflucan) 100 mg PO DAILY [facility]; Protocol Last Admin: 09/16/18 13:12 Dose: 100 mg Furosemide (Lasix) 40 mg IVP BID [facility] Last Admin: 09/16/18 09:14 Dose: 40 mg Meropenem 500 mg/ Sodium (Chloride) 100 mls @ 100 mls/hr IVPB Q12H [facility]; Protocol Last Admin: 09/16/18 04:26 Dose: 100 mls/hr Metoprolol Tartrate (Lopressor) 25 mg PO 0800,1700 [facility] Last Admin: 09/16/18 08:10 Dose: 25 mg Nystatin (Nystop Topical Powder) 0 gm TOP TID [facility] Last Admin: 09/16/18 13:15 Dose: 1 applic Ondansetron HCl (Zofran Inj) 4 mg IVP Q6H PRN PRN Reason: nausea Last Admin: 09/13/18 17:00 Dose: 4 mg Pantoprazole Sodium (Protonix Ec Tab) 40 mg PO DAILY [facility] Last Admin: 09/16/18 09:13 Dose: 40 mg Potassium Chloride (K-Dur 20 Meq Er Tab) 20 meq PO BID [facility] Last Admin: 09/16/18 09:14 Dose: 20 meq Tramadol HCl (Ultram) 25 mg PO TID PRN PRN Reason: Pain, severe (8-10) Last Admin: 09/16/18 10:27 Dose: 25 mg Valacyclovir HCl (Valtrex) 1,000 mg PO TID [facility]; Protocol Vitamin B Complex/Vit C/Folic Acid (Nephro-Fortino) 1 tab PO 0800 [facility] Last Admin: 09/16/18 09:15 Dose: 1 tab - Labs Labs: 09/14/18 05:52 09/14/18 05:53 PT 25.5 SECONDS (9.7-12.2) H 08/31/18 20:08 INR 2.3 08/31/18 20:08 APTT 34 SECONDS (21-34) 08/31/18 12:32
[2018-09-16 14:15] LABS: BASO # 0.1 K/uL (0.0-0.2); BASO % 1.1 % (0.0-2.0); EOS # 0.1 K/uL (0.0-0.7); HEMOGLOBIN 8.9 g/dL (11.0-16.0); LYMPH # 2.5 K/uL (1.0-4.3); LYMPH % 32.4 % (20.0-40.0); MEAN CELL VOLUME 97.8 fL (81.0-99.0); MEAN CORPUSCULAR HGB CONC 31.7 g/dL (33.0-37.0); MEAN PLATELET VOLUME 8.9 fL (7.2-11.7); MONO # 0.3 K/uL (0.0-0.8); MONO % 4.4 % (0.0-10.0); NEUT # 4.8 K/uL (1.8-7.0); NEUT % 61.1 % (50.0-75.0); NRBC % 0.1 % (0.0-2.0); RBC 2.87 Mil/uL (3.80-5.20); WHITE BLOOD COUNT 7.9 K/uL (4.8-10.8)
--- NOTE | 2018-09-16 17:22 | CP.PCM.PN ---
Subjective - Date & Time of Evaluation Date of Evaluation: 09/16/18 Time of Evaluation: 09:00 - Subjective Subjective: clinically same Objective - Vital Signs/Intake and Output Vital Signs (last 24 hours): Temp Pulse Resp BP Pulse Ox 98.1 F 89 20 132/76 95 09/16/18 15:00 09/16/18 15:00 09/16/18 15:00 09/16/18 15:00 09/16/18 15:00 Intake and Output: 09/16/18 09/16/18 06:59 18:59 Intake Total 700 Output Total 500 850 Balance 200 -850 - Medications Medications: Current Medications Acetaminophen (Tylenol 325mg Tab) 650 mg PO Q6 PRN PRN Reason: pain Last Admin: 09/16/18 09:15 Dose: 650 mg Calcium/Vitamin D (Oyster Shell Calcium/Vitamin D 500 Mg-200 Iu) 1 tab PO BID [facility] Last Admin: 09/16/18 09:14 Dose: 1 tab Enoxaparin Sodium (Lovenox) 40 mg SC DAILY [facility] Last Admin: 09/16/18 09:15 Dose: 40 mg Ergocalciferol (Drisdol 50,000 Intl Units Cap) 1 cap PO Q7D [facility] Last Admin: 09/15/18 13:41 Dose: 1 cap Ferrous Gluconate (Fergon) 324 mg PO TID [facility] Last Admin: 09/16/18 13:13 Dose: 324 mg Fluconazole (Diflucan) 100 mg PO DAILY [facility]; Protocol Last Admin: 09/16/18 13:12 Dose: 100 mg Furosemide (Lasix) 40 mg IVP BID [facility] Last Admin: 09/16/18 09:14 Dose: 40 mg Gabapentin (Neurontin) 100 mg PO TID [facility] Meropenem 500 mg/ Sodium (Chloride) 100 mls @ 100 mls/hr IVPB Q12H [facility]; Protocol Last Admin: 09/16/18 04:26 Dose: 100 mls/hr Losartan Potassium (Cozaar) 25 mg PO DAILY [facility] Metoprolol Tartrate (Lopressor) 25 mg PO 0800,1700 [facility] Last Admin: 09/16/18 08:10 Dose: 25 mg Nystatin (Nystop Topical Powder) 0 gm TOP TID [facility] Last Admin: 09/16/18 13:15 Dose: 1 applic Ondansetron HCl (Zofran Inj) 4 mg IVP Q6H PRN PRN Reason: nausea Last Admin: 09/13/18 17:00 Dose: 4 mg Pantoprazole Sodium (Protonix Ec Tab) 40 mg PO DAILY [facility] Last Admin: 09/16/18 09:13 Dose: 40 mg Potassium Chloride (K-Dur 20 Meq Er Tab) 20 meq PO BID [facility] Last Admin: 09/16/18 09:14 Dose: 20 meq Pregabalin (Lyrica) 75 mg PO BID [facility] Stop: 09/21/18 13:46 Last Admin: 09/16/18 14:44 Dose: 75 mg Tramadol HCl (Ultram) 25 mg PO TID PRN PRN Reason: Pain, severe (8-10) Last Admin: 09/16/18 10:27 Dose: 25 mg Valacyclovir HCl (Valtrex) 1,000 mg PO TID [facility]; Protocol Last Admin: 09/16/18 14:44 Dose: 1,000 mg Vitamin B Complex/Vit C/Folic Acid (Nephro-Fortino) 1 tab PO 0800 [facility] Last Admin: 09/16/18 09:15 Dose: 1 tab - Labs Labs: 09/16/18 14:09 09/14/18 05:53 PT 25.5 SECONDS (9.7-12.2) H 08/31/18 20:08 INR 2.3 08/31/18 20:08 APTT 34 SECONDS (21-34) 08/31/18 12:32 - Constitutional Appears: Well - Head Exam Head Exam: ATRAUMATIC, NORMAL INSPECTION, NORMOCEPHALIC - Eye Exam Eye Exam: EOMI, Normal appearance, PERRL Pupil Exam: NORMAL ACCOMODATION, PERRL - ENT Exam ENT Exam: Mucous Membranes Moist, Normal Exam - Neck Exam Neck Exam: Full ROM, Normal Inspection. absent: Lymphadenopathy - Respiratory Exam Respiratory Exam: Decreased Breath Sounds - Cardiovascular Exam Cardiovascular Exam: REGULAR RHYTHM, +S1, +S2 - GI/Abdominal Exam GI & Abdominal Exam: Soft, Diminished Bowel Sounds - Rectal Exam Rectal Exam: Deferred
--- NOTE | 2018-09-16 17:34 | CP.PCM.PN ---
Subjective - Date & Time of Evaluation Date of Evaluation: 09/16/18 Time of Evaluation: 06:00 - Subjective Subjective: afeb/ iv rx renewed Objective - Vital Signs/Intake and Output Vital Signs (last 24 hours): Temp Pulse Resp BP Pulse Ox 98.1 F 89 20 132/76 95 09/16/18 15:00 09/16/18 15:00 09/16/18 15:00 09/16/18 15:00 09/16/18 15:00 Intake and Output: 09/16/18 09/16/18 06:59 18:59 Intake Total 700 Output Total 500 850 Balance 200 -850 - Medications Medications: Current Medications Acetaminophen (Tylenol 325mg Tab) 650 mg PO Q6 PRN PRN Reason: pain Last Admin: 09/16/18 09:15 Dose: 650 mg Calcium/Vitamin D (Oyster Shell Calcium/Vitamin D 500 Mg-200 Iu) 1 tab PO BID [facility] Last Admin: 09/16/18 09:14 Dose: 1 tab Enoxaparin Sodium (Lovenox) 40 mg SC DAILY [facility] Last Admin: 09/16/18 09:15 Dose: 40 mg Ergocalciferol (Drisdol 50,000 Intl Units Cap) 1 cap PO Q7D [facility] Last Admin: 09/15/18 13:41 Dose: 1 cap Ferrous Gluconate (Fergon) 324 mg PO TID [facility] Last Admin: 09/16/18 13:13 Dose: 324 mg Fluconazole (Diflucan) 100 mg PO DAILY [facility]; Protocol Last Admin: 09/16/18 13:12 Dose: 100 mg Furosemide (Lasix) 40 mg IVP BID [facility] Last Admin: 09/16/18 09:14 Dose: 40 mg Gabapentin (Neurontin) 100 mg PO TID [facility] Meropenem 500 mg/ Sodium (Chloride) 100 mls @ 100 mls/hr IVPB Q12H [facility]; Protocol Last Admin: 09/16/18 04:26 Dose: 100 mls/hr Losartan Potassium (Cozaar) 25 mg PO DAILY [facility] Metoprolol Tartrate (Lopressor) 25 mg PO 0800,1700 [facility] Last Admin: 09/16/18 08:10 Dose: 25 mg Nystatin (Nystop Topical Powder) 0 gm TOP TID [facility] Last Admin: 09/16/18 13:15 Dose: 1 applic Ondansetron HCl (Zofran Inj) 4 mg IVP Q6H PRN PRN Reason: nausea Last Admin: 09/13/18 17:00 Dose: 4 mg Pantoprazole Sodium (Protonix Ec Tab) 40 mg PO DAILY [facility] Last Admin: 09/16/18 09:13 Dose: 40 mg Potassium Chloride (K-Dur 20 Meq Er Tab) 20 meq PO BID [facility] Last Admin: 09/16/18 09:14 Dose: 20 meq Pregabalin (Lyrica) 75 mg PO BID [facility] Stop: 09/21/18 13:46 Last Admin: 09/16/18 14:44 Dose: 75 mg Tramadol HCl (Ultram) 25 mg PO TID PRN PRN Reason: Pain, severe (8-10) Last Admin: 09/16/18 10:27 Dose: 25 mg Valacyclovir HCl (Valtrex) 1,000 mg PO TID [facility]; Protocol Last Admin: 09/16/18 14:44 Dose: 1,000 mg Vitamin B Complex/Vit C/Folic Acid (Nephro-Fortino) 1 tab PO 0800 [facility] Last Admin: 09/16/18 09:15 Dose: 1 tab - Labs Labs: 09/16/18 14:09 09/14/18 05:53 PT 25.5 SECONDS (9.7-12.2) H 08/31/18 20:08 INR 2.3 08/31/18 20:08 APTT 34 SECONDS (21-34) 08/31/18 12:32 Assessment and Plan (1) Leukocytosis Status: Acute (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
[2018-09-17] MEDS: Meropenem 500 MG in Sodium Chloride 0.9% 100 ML IVPB SCH ×2 (05:11→18:20)
[2018-09-17 07:56] LABS: BASO % 0.7 % (0.0-2.0); EOS # 0.1 K/uL (0.0-0.7); EOS % 1.6 % (0.0-4.0); HEMOGLOBIN 8.8 g/dL (11.0-16.0); LYMPH # 2.8 K/uL (1.0-4.3); LYMPH % 39.7 % (20.0-40.0); MEAN CELL VOLUME 97.5 fL (81.0-99.0); MEAN CORPUSCULAR HEMOGLOBIN 31.1 pg (27.0-31.0); MEAN CORPUSCULAR HGB CONC 31.9 g/dL (33.0-37.0); MEAN PLATELET VOLUME 9.2 fL (7.2-11.7); MONO # 0.3 K/uL (0.0-0.8); MONO % 4.3 % (0.0-10.0); NEUT # 3.7 K/uL (1.8-7.0); NEUT % 53.7 % (50.0-75.0); NRBC % 0.1 % (0.0-2.0); RBC 2.82 Mil/uL (3.80-5.20); RED CELL DISTRIBUTION WIDTH 20.3 % (11.5-14.5); WHITE BLOOD COUNT 6.9 K/uL (4.8-10.8)
[2018-09-17] MEDS: Multivitamin Vitamin B Complex (Nephro-Vite) Tab PO SCH (08:29)
[2018-09-17 08:46] LABS: BLOOD UREA NITROGEN 25 mg/dL (7-17); CALCIUM 7.4 mg/dl (8.6-10.4); GFR NON-AFRICAN AMERICAN 56
[2018-09-17] MEDS: Enoxaparin 40 mg Syringe SC SCH (10:12)
[2018-09-17] MEDS: Nystatin 100,000 Units/gm Topical Pow(15 gm) TOP SCH ×3 (10:14→18:24)
[2018-09-17] MEDS: Calcium-Vit D 500 mg-200 Units Tab UD PO SCH ×2 (10:14→18:24)
[2018-09-17] MEDS: Pantoprazole 40 mg EC Tab PO SCH (10:14)
[2018-09-17] MEDS: Potassium Chloride 20 mEq ER Tab PO SCH ×2 (10:14→18:19)
--- NOTE | 2018-09-17 19:06 | CP.PCM.PN ---
Subjective - Date & Time of Evaluation Date of Evaluation: 09/17/18 Time of Evaluation: 10:15 - Subjective Subjective: clinically same Objective - Vital Signs/Intake and Output Vital Signs (last 24 hours): Temp Pulse Resp BP Pulse Ox 98.1 F 108 H 20 142/83 98 09/17/18 16:00 09/17/18 16:00 09/17/18 16:00 09/17/18 18:19 09/17/18 16:00 - Medications Medications: Current Medications Acetaminophen (Tylenol 325mg Tab) 650 mg PO Q6 PRN PRN Reason: pain Last Admin: 09/16/18 09:15 Dose: 650 mg Calcium/Vitamin D (Oyster Shell Calcium/Vitamin D 500 Mg-200 Iu) 1 tab PO BID [facility] Last Admin: 09/17/18 18:24 Dose: 1 tab Enoxaparin Sodium (Lovenox) 40 mg SC DAILY [facility] Last Admin: 09/17/18 10:12 Dose: 40 mg Ergocalciferol (Drisdol 50,000 Intl Units Cap) 1 cap PO Q7D [facility] Last Admin: 09/15/18 13:41 Dose: 1 cap Ferrous Gluconate (Fergon) 324 mg PO TID [facility] Last Admin: 09/17/18 18:17 Dose: 324 mg Fluconazole (Diflucan) 100 mg PO DAILY [facility]; Protocol Last Admin: 09/17/18 11:00 Dose: 100 mg Furosemide (Lasix) 40 mg IVP BID [facility] Last Admin: 09/17/18 18:19 Dose: 40 mg Gabapentin (Neurontin) 100 mg PO TID [facility] Last Admin: 09/17/18 18:18 Dose: 100 mg Meropenem 500 mg/ Sodium (Chloride) 100 mls @ 100 mls/hr IVPB Q12H [facility]; Protocol Last Admin: 09/17/18 18:20 Dose: 100 mls/hr Losartan Potassium (Cozaar) 25 mg PO DAILY [facility] Last Admin: 09/17/18 10:19 Dose: 25 mg Metoprolol Tartrate (Lopressor) 25 mg PO 0800,1700 [facility] Last Admin: 09/17/18 18:19 Dose: 25 mg Nystatin (Nystop Topical Powder) 0 gm TOP TID [facility] Last Admin: 09/17/18 18:24 Dose: 1 applic Ondansetron HCl (Zofran Inj) 4 mg IVP Q6H PRN PRN Reason: nausea Last Admin: 09/13/18 17:00 Dose: 4 mg Pantoprazole Sodium (Protonix Ec Tab) 40 mg PO DAILY [facility] Last Admin: 09/17/18 10:14 Dose: 40 mg Potassium Chloride (K-Dur 20 Meq Er Tab) 20 meq PO BID [facility] Last Admin: 09/17/18 18:19 Dose: 20 meq Pregabalin (Lyrica) 75 mg PO BID [facility] Stop: 09/21/18 13:46 Last Admin: 09/17/18 18:18 Dose: 75 mg Tramadol HCl (Ultram) 25 mg PO TID PRN PRN Reason: Pain, severe (8-10) Last Admin: 09/16/18 10:27 Dose: 25 mg Valacyclovir HCl (Valtrex) 1,000 mg PO TID [facility]; Protocol Last Admin: 09/17/18 18:17 Dose: 1,000 mg Vitamin B Complex/Vit C/Folic Acid (Nephro-Fortino) 1 tab PO 0800 [facility] Last Admin: 09/17/18 08:29 Dose: 1 tab - Labs Labs: 09/17/18 07:33 09/17/18 07:33 PT 25.5 SECONDS (9.7-12.2) H 08/31/18 20:08 INR 2.3 08/31/18 20:08 APTT 34 SECONDS (21-34) 08/31/18 12:32 - Constitutional Appears: Well - Head Exam Head Exam: ATRAUMATIC, NORMAL INSPECTION, NORMOCEPHALIC - Eye Exam Eye Exam: EOMI, Normal appearance, PERRL Pupil Exam: NORMAL ACCOMODATION, PERRL - ENT Exam ENT Exam: Mucous Membranes Moist, Normal Exam - Neck Exam Neck Exam: Full ROM, Normal Inspection. absent: Lymphadenopathy - Respiratory Exam Respiratory Exam: Decreased Breath Sounds - Cardiovascular Exam Cardiovascular Exam: REGULAR RHYTHM, +S1, +S2 - GI/Abdominal Exam GI & Abdominal Exam: Soft, Diminished Bowel Sounds - Rectal Exam Rectal Exam: Deferred
[2018-09-18] MEDS: Meropenem 500 MG in Sodium Chloride 0.9% 100 ML IVPB SCH ×2 (05:37→16:37)
[2018-09-18] MEDS: Multivitamin Vitamin B Complex (Nephro-Vite) Tab PO SCH (08:11)
[2018-09-18] MEDS: Calcium-Vit D 500 mg-200 Units Tab UD PO SCH ×2 (10:12→17:41)
[2018-09-18] MEDS: Pantoprazole 40 mg EC Tab PO SCH (10:13)
[2018-09-18] MEDS: Potassium Chloride 20 mEq ER Tab PO SCH ×2 (10:13→17:41)
[2018-09-18] MEDS: Nystatin 100,000 Units/gm Topical Pow(15 gm) TOP SCH ×3 (10:13→17:42)
[2018-09-18] MEDS: Enoxaparin 40 mg Syringe SC SCH (10:16)
--- NOTE | 2018-09-18 16:14 | CP.PCM.PN ---
Subjective - Date & Time of Evaluation Date of Evaluation: 09/18/18 Time of Evaluation: 09:00 - Subjective Subjective: improving afeb nad Objective - Vital Signs/Intake and Output Vital Signs (last 24 hours): Temp Pulse Resp BP Pulse Ox 98.1 F 113 H 20 115/64 96 09/18/18 08:31 09/18/18 08:31 09/18/18 08:31 09/18/18 10:17 09/18/18 08:31 Intake and Output: 09/18/18 09/18/18 06:59 18:59 Output Total 1200 750 Balance -1200 -750 - Medications Medications: Current Medications Acetaminophen (Tylenol 325mg Tab) 650 mg PO Q6 PRN PRN Reason: pain Last Admin: 09/16/18 09:15 Dose: 650 mg Calcium/Vitamin D (Oyster Shell Calcium/Vitamin D 500 Mg-200 Iu) 1 tab PO BID [facility] Last Admin: 09/18/18 10:12 Dose: 1 tab Enoxaparin Sodium (Lovenox) 40 mg SC DAILY [facility] Last Admin: 09/18/18 10:16 Dose: 40 mg Ergocalciferol (Drisdol 50,000 Intl Units Cap) 1 cap PO Q7D [facility] Last Admin: 09/15/18 13:41 Dose: 1 cap Ferrous Gluconate (Fergon) 324 mg PO TID [facility] Last Admin: 09/18/18 14:16 Dose: 324 mg Fluconazole (Diflucan) 100 mg PO DAILY [facility]; Protocol Last Admin: 09/18/18 10:13 Dose: 100 mg Furosemide (Lasix) 40 mg IVP BID [facility] Last Admin: 09/18/18 10:17 Dose: 40 mg Gabapentin (Neurontin) 100 mg PO TID [facility] Last Admin: 09/18/18 14:16 Dose: 100 mg Meropenem 500 mg/ Sodium (Chloride) 100 mls @ 100 mls/hr IVPB Q12H [facility]; Protocol Last Admin: 09/18/18 05:37 Dose: 100 mls/hr Losartan Potassium (Cozaar) 25 mg PO DAILY [facility] Last Admin: 09/18/18 10:13 Dose: 25 mg Metoprolol Tartrate (Lopressor) 25 mg PO 0800,1700 [facility] Last Admin: 09/18/18 08:12 Dose: 25 mg Nystatin (Nystop Topical Powder) 0 gm TOP TID [facility] Last Admin: 09/18/18 14:17 Dose: 1 applic Ondansetron HCl (Zofran Inj) 4 mg IVP Q6H PRN PRN Reason: nausea Last Admin: 09/13/18 17:00 Dose: 4 mg Pantoprazole Sodium (Protonix Ec Tab) 40 mg PO DAILY [facility] Last Admin: 09/18/18 10:13 Dose: 40 mg Potassium Chloride (K-Dur 20 Meq Er Tab) 20 meq PO BID [facility] Last Admin: 09/18/18 10:13 Dose: 20 meq Pregabalin (Lyrica) 75 mg PO BID [facility] Stop: 09/21/18 13:46 Last Admin: 09/18/18 10:13 Dose: 75 mg Tramadol HCl (Ultram) 25 mg PO TID PRN PRN Reason: Pain, severe (8-10) Last Admin: 09/16/18 10:27 Dose: 25 mg Valacyclovir HCl (Valtrex) 1,000 mg PO TID [facility]; Protocol Last Admin: 09/18/18 14:16 Dose: 1,000 mg Vitamin B Complex/Vit C/Folic Acid (Nephro-Fortino) 1 tab PO 0800 [facility] Last Admin: 09/18/18 08:11 Dose: 1 tab - Labs Labs: 09/17/18 07:33 09/17/18 07:33 PT 25.5 SECONDS (9.7-12.2) H 08/31/18 20:08 INR 2.3 08/31/18 20:08 APTT 34 SECONDS (21-34) 08/31/18 12:32 - Constitutional Appears: Non-toxic, Chronically Ill - Head Exam Head Exam: NORMOCEPHALIC - Eye Exam Eye Exam: absent: Scleral icterus - ENT Exam ENT Exam: Mucous Membranes Dry - Neck Exam Neck Exam: absent: Lymphadenopathy - Respiratory Exam Respiratory Exam: Decreased Breath Sounds - Cardiovascular Exam Cardiovascular Exam: REGULAR RHYTHM - GI/Abdominal Exam GI & Abdominal Exam: Distended, Soft - Rectal Exam Rectal Exam: absent: Bloody Stool - Extremities Exam Extremities Exam: Pedal Edema - Back Exam Back Exam: absent: CVA tenderness (L), CVA tenderness (R) Assessment and Plan (1) Leukocytosis Status: Acute (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 - Assessment and Plan (Free Text) Assessment: cont iv antibiotic for endocarditis
--- NOTE | 2018-09-18 17:26 | CP.PCM.PN ---
Subjective - Date & Time of Evaluation Date of Evaluation: 09/18/18 Time of Evaluation: 09:00 - Subjective Subjective: clinically same Objective - Vital Signs/Intake and Output Vital Signs (last 24 hours): Temp Pulse Resp BP Pulse Ox 97.9 F 126 H 20 106/63 98 09/18/18 15:09 09/18/18 15:09 09/18/18 15:09 09/18/18 15:09 09/18/18 15:09 Intake and Output: 09/18/18 09/18/18 06:59 18:59 Output Total 1200 750 Balance -1200 -750 - Medications Medications: Current Medications Acetaminophen (Tylenol 325mg Tab) 650 mg PO Q6 PRN PRN Reason: pain Last Admin: 09/16/18 09:15 Dose: 650 mg Calcium/Vitamin D (Oyster Shell Calcium/Vitamin D 500 Mg-200 Iu) 1 tab PO BID [facility] Last Admin: 09/18/18 10:12 Dose: 1 tab Enoxaparin Sodium (Lovenox) 40 mg SC DAILY [facility] Last Admin: 09/18/18 10:16 Dose: 40 mg Ergocalciferol (Drisdol 50,000 Intl Units Cap) 1 cap PO Q7D [facility] Last Admin: 09/15/18 13:41 Dose: 1 cap Ferrous Gluconate (Fergon) 324 mg PO TID [facility] Last Admin: 09/18/18 14:16 Dose: 324 mg Fluconazole (Diflucan) 100 mg PO DAILY [facility]; Protocol Last Admin: 09/18/18 10:13 Dose: 100 mg Furosemide (Lasix) 40 mg IVP BID [facility] Last Admin: 09/18/18 10:17 Dose: 40 mg Gabapentin (Neurontin) 100 mg PO TID [facility] Last Admin: 09/18/18 14:16 Dose: 100 mg Meropenem 500 mg/ Sodium (Chloride) 100 mls @ 100 mls/hr IVPB Q12H [facility]; Protocol Last Admin: 09/18/18 16:37 Dose: 100 mls/hr Losartan Potassium (Cozaar) 25 mg PO DAILY [facility] Last Admin: 09/18/18 10:13 Dose: 25 mg Metoprolol Tartrate (Lopressor) 25 mg PO 0800,1700 [facility] Last Admin: 09/18/18 16:37 Dose: Not Given Nystatin (Nystop Topical Powder) 0 gm TOP TID [facility] Last Admin: 09/18/18 14:17 Dose: 1 applic Ondansetron HCl (Zofran Inj) 4 mg IVP Q6H PRN PRN Reason: nausea Last Admin: 09/13/18 17:00 Dose: 4 mg Pantoprazole Sodium (Protonix Ec Tab) 40 mg PO DAILY [facility] Last Admin: 09/18/18 10:13 Dose: 40 mg Potassium Chloride (K-Dur 20 Meq Er Tab) 20 meq PO BID [facility] Last Admin: 09/18/18 10:13 Dose: 20 meq Pregabalin (Lyrica) 75 mg PO BID [facility] Stop: 09/21/18 13:46 Last Admin: 09/18/18 10:13 Dose: 75 mg Tramadol HCl (Ultram) 25 mg PO TID PRN PRN Reason: Pain, severe (8-10) Last Admin: 09/16/18 10:27 Dose: 25 mg Valacyclovir HCl (Valtrex) 1,000 mg PO TID [facility]; Protocol Last Admin: 09/18/18 14:16 Dose: 1,000 mg Vitamin B Complex/Vit C/Folic Acid (Nephro-Fortino) 1 tab PO 0800 [facility] Last Admin: 09/18/18 08:11 Dose: 1 tab - Labs Labs: 09/17/18 07:33 09/17/18 07:33 PT 25.5 SECONDS (9.7-12.2) H 08/31/18 20:08 INR 2.3 08/31/18 20:08 APTT 34 SECONDS (21-34) 08/31/18 12:32 - Constitutional Appears: Well - Head Exam Head Exam: ATRAUMATIC, NORMAL INSPECTION, NORMOCEPHALIC - Eye Exam Eye Exam: EOMI, Normal appearance, PERRL Pupil Exam: NORMAL ACCOMODATION, PERRL - ENT Exam ENT Exam: Mucous Membranes Moist, Normal Exam - Neck Exam Neck Exam: Full ROM, Normal Inspection. absent: Lymphadenopathy - Respiratory Exam Respiratory Exam: Decreased Breath Sounds - Cardiovascular Exam Cardiovascular Exam: REGULAR RHYTHM, +S1, +S2 - GI/Abdominal Exam GI & Abdominal Exam: Soft, Diminished Bowel Sounds - Rectal Exam Rectal Exam: Deferred
[2018-09-19] MEDS: Meropenem 500 MG in Sodium Chloride 0.9% 100 ML IVPB SCH ×2 (05:00→17:39)
[2018-09-19] MEDS: Pantoprazole 40 mg EC Tab PO SCH (11:35)
[2018-09-19] MEDS: Multivitamin Vitamin B Complex (Nephro-Vite) Tab PO SCH (11:35)
[2018-09-19] MEDS: Magnesium Oxide 400 mg Tab UD PO SCH ×2 (11:36→17:40)
[2018-09-19] MEDS: Calcium-Vit D 500 mg-200 Units Tab UD PO SCH ×2 (11:36→17:41)
[2018-09-19] MEDS: Enoxaparin 40 mg Syringe SC SCH (11:37)
[2018-09-19] MEDS: Nystatin 100,000 Units/gm Topical Pow(15 gm) TOP SCH ×3 (11:38→17:43)
--- NOTE | 2018-09-19 12:02 | CP.PCM.PN ---
Subjective - Date & Time of Evaluation Date of Evaluation: 09/19/18 Time of Evaluation: 12:01 - Subjective Subjective: Nephrology Consultation Note Assessment: stable Acute Kidney Injury (N17.9) likely due to ATN and pre-renal state: recent work up for GN neg; resolved HAGMA with ketonemia likely due to ROBIN and ketoacidosis hypovolemic hyponatremia, Hypokalemia, hypocalcemia and hypomagnesemia likely due to GI (due to diarrhoea) and renal loss (was on lasix) with limited oral intake severe hypoalbuminemia with malnutration with anasarca Hypertensive Chronic Kidney Disease (I12.9) Chronic Kidney Disease (N18.9) Stage 3 with 55 mg albuminuria Anemia acute on chronic severe Mitral regurg with infective endocarditis, depression/Anxiety shingles rash Plan Maintain hemodynamics stable. Avoid hypotension. Patient not on ACEI/ARB due to recent ROBIN, will add low dose Monitor Input/Output, daily weights and renal function with basic metabolic panel started Fe, MVI, and weekly Vit D, OScal D continue with lasix 40 mg oral daily with K and Mag supplements PRBC as needed. had transfusion 09/02/18. supplement lytes as needed on valtrex and meds to control neuropathic pain d/w RN for trial of white catheter and rectal tube removal Dose meds/antibiotics for improved GFR. Glycemic control Further work up for as per primary team pt stable from renal perspective Thanks for allowing me to participate in care of your patient. Will follow patient with you. Please call if any Qs. had d/w team Dr Heriberto Hernandez Office: [phone] reason for consult; ROBIN and electrolytes abnormalities HPI: pt is a 62 F with hx of HTN, depression who [facility] with ROBIN required few session of HD then improved with cr 1.2, also with infective endocarditis with severe MR but pt refused surgery and decided only for IV antibiotics treatments came as was feeling weak, found to have severe electrolytes depletion and renal consult for ROBIN. pt feels nervous. reports decreased oral intake and c.o loose stool besides that not providing much hx nor recent Iv contrast. noted low BP ROS: denies SOB, chest pain. feels better except Rt upper abdomen pain. no diarrhoea Physical Examination: General Appearance: comfortable, in no acute respiratory distress, better appearing but debilitated Vitals reviewed and noted as below Head; Atraumatic, normocephalic ENT: WNL EYES: Pupils are equal, round and reactive to light accommodation. Eye muscles and extraocular movement intact. Sclera is anicteric. Neck; supple no lymphadenopathy, no thyromegaly or bruit Lungs: Normal respiratory rate/effort. Breath sounds b/l decreased at bases Heart: normal rate. s1s2 normal. No rub or gallop. SM + at apex/LSB Extremities: 1-2+ edema. No varicose veins Neurological: Patient is alert awake oriented follow commands Skin: Warm and dry. Normal turgor. Palpitation: Normal elasticity for age. shingles rash RUQ dermatome Abdomen: Abdomen is soft. Bowel sounds +. There is no abdominal tenderness, no guarding/rigidity no organomegaly Psych: lack insight. anxious MSK: no joint tenderness or swelling. Digits and nails normal, no deformity : kidney or bladder not palpable Labs/imaging reviewed. Past medical history, past surgical history, family history, social history, allergy reviewed and noted as below Family hx: no hx of CKD. Rest non-contributory work up: Hep B/C/HIV neg renal imaging: unremarkable A1c 5.5% UA no protein 1+ blood LINDSEY/ANCA neg, K/L ratio WNLTSAT 9% ferritin 221 Vit D <12.8 PTH 268 FENa 0.3% TTKG 15 Objective - Vital Signs/Intake and Output Vital Signs (last 24 hours): Temp Pulse Resp BP Pulse Ox 97.8 F 110 H 20 125/84 94 L 09/19/18 07:09 09/19/18 07:09 09/19/18 07:09 09/19/18 11:37 09/19/18 07:09 Intake and Output: 09/19/18 09/19/18 06:59 18:59 Output Total 1200 Balance -1200 - Medications Medications: Current Medications Acetaminophen (Tylenol 325mg Tab) 650 mg PO Q6 PRN PRN Reason: pain Last Admin: 09/16/18 09:15 Dose: 650 mg Calcium/Vitamin D (Oyster Shell Calcium/Vitamin D 500 Mg-200 Iu) 1 tab PO BID [facility] Last Admin: 09/19/18 11:36 Dose: 1 tab Enoxaparin Sodium (Lovenox) 40 mg SC DAILY [facility] Last Admin: 09/19/18 11:37 Dose: 40 mg Ergocalciferol (Drisdol 50,000 Intl Units Cap) 1 cap PO Q7D [facility] Last Admin: 09/15/18 13:41 Dose: 1 cap Ferrous Gluconate (Fergon) 324 mg PO TID [facility] Last Admin: 09/19/18 11:35 Dose: 324 mg Fluconazole (Diflucan) 100 mg PO DAILY [facility]; Protocol Last Admin: 09/19/18 11:35 Dose: 100 mg Furosemide (Lasix) 40 mg PO DAILY [facility] Gabapentin (Neurontin) 100 mg PO TID [facility] Last Admin: 09/19/18 11:35 Dose: 100 mg Meropenem 500 mg/ Sodium (Chloride) 100 mls @ 100 mls/hr IVPB Q12H [facility]; Protocol Last Admin: 09/19/18 05:00 Dose: 100 mls/hr Losartan Potassium (Cozaar) 25 mg PO DAILY [facility] Last Admin: 09/19/18 11:37 Dose: 25 mg Magnesium Oxide (Mag-Ox) 400 mg PO BID [facility] Last Admin: 09/19/18 11:36 Dose: 400 mg Metoprolol Tartrate (Lopressor) 25 mg PO 0800,1700 [facility] Last Admin: 09/19/18 11:37 Dose: 25 mg Nystatin (Nystop Topical Powder) 0 gm TOP TID [facility] Last Admin: 09/19/18 11:38 Dose: 1 applic Ondansetron HCl (Zofran Inj) 4 mg IVP Q6H PRN PRN Reason: nausea Last Admin: 09/13/18 17:00 Dose: 4 mg Pantoprazole Sodium (Protonix Ec Tab) 40 mg PO DAILY [facility] Last Admin: 09/19/18 11:35 Dose: 40 mg Potassium Chloride (Potassium Chloride Oral Soln) 20 meq PO BID [facility] Tramadol HCl (Ultram) 25 mg PO TID PRN PRN Reason: Pain, severe (8-10) Last Admin: 09/16/18 10:27 Dose: 25 mg Valacyclovir HCl (Valtrex) 1,000 mg PO TID [facility]; Protocol Last Admin: 09/19/18 11:35 Dose: 1,000 mg Vitamin B Complex/Vit C/Folic Acid (Nephro-Fortino) 1 tab PO 0800 [facility] Last Admin: 09/19/18 11:35 Dose: 1 tab - Labs Labs: 09/17/18 07:33 09/17/18 07:33 PT 25.5 SECONDS (9.7-12.2) H 08/31/18 20:08 INR 2.3 08/31/18 20:08 APTT 34 SECONDS (21-34) 08/31/18 12:32
[2018-09-19] MEDS: Potassium Chloride 20 mEq/15 ml LIQ UD PO SCH ×2 (12:29→17:40)
--- NOTE | 2018-09-19 22:20 | CP.PCM.PN ---
Subjective - Date & Time of Evaluation Date of Evaluation: 09/14/18 Time of Evaluation: 12:00 - Subjective Subjective: No complaints. Objective - Vital Signs/Intake and Output Vital Signs (last 24 hours): Temp Pulse Resp BP Pulse Ox 98.2 F 111 H 20 120/71 96 09/19/18 16:00 09/19/18 16:00 09/19/18 16:00 09/19/18 17:40 09/19/18 16:00 - Medications Medications: Current Medications Acetaminophen (Tylenol 325mg Tab) 650 mg PO Q6 PRN PRN Reason: pain Last Admin: 09/16/18 09:15 Dose: 650 mg Calcium/Vitamin D (Oyster Shell Calcium/Vitamin D 500 Mg-200 Iu) 1 tab PO BID [facility] Last Admin: 09/19/18 17:41 Dose: 1 tab Enoxaparin Sodium (Lovenox) 40 mg SC DAILY [facility] Last Admin: 09/19/18 11:37 Dose: 40 mg Ergocalciferol (Drisdol 50,000 Intl Units Cap) 1 cap PO Q7D [facility] Last Admin: 09/15/18 13:41 Dose: 1 cap Ferrous Gluconate (Fergon) 324 mg PO TID [facility] Last Admin: 09/19/18 17:40 Dose: 324 mg Fluconazole (Diflucan) 100 mg PO DAILY [facility]; Protocol Last Admin: 09/19/18 11:35 Dose: 100 mg Furosemide (Lasix) 40 mg PO DAILY [facility] Gabapentin (Neurontin) 100 mg PO TID [facility] Last Admin: 09/19/18 17:40 Dose: 100 mg Meropenem 500 mg/ Sodium (Chloride) 100 mls @ 100 mls/hr IVPB Q12H [facility]; Protocol Last Admin: 09/19/18 17:39 Dose: 100 mls/hr Losartan Potassium (Cozaar) 25 mg PO DAILY [facility] Last Admin: 09/19/18 11:37 Dose: 25 mg Magnesium Oxide (Mag-Ox) 400 mg PO BID [facility] Last Admin: 09/19/18 17:40 Dose: 400 mg Metoprolol Tartrate (Lopressor) 25 mg PO 0800,1700 [facility] Last Admin: 09/19/18 17:40 Dose: 25 mg Nystatin (Nystop Topical Powder) 0 gm TOP TID [facility] Last Admin: 09/19/18 17:43 Dose: 1 applic Ondansetron HCl (Zofran Inj) 4 mg IVP Q6H PRN PRN Reason: nausea Last Admin: 09/13/18 17:00 Dose: 4 mg Pantoprazole Sodium (Protonix Ec Tab) 40 mg PO DAILY [facility] Last Admin: 09/19/18 11:35 Dose: 40 mg Potassium Chloride (Potassium Chloride Oral Soln) 20 meq PO BID [facility] Last Admin: 09/19/18 17:40 Dose: 20 meq Tramadol HCl (Ultram) 25 mg PO TID PRN PRN Reason: Pain, severe (8-10) Last Admin: 09/16/18 10:27 Dose: 25 mg Valacyclovir HCl (Valtrex) 1,000 mg PO TID [facility]; Protocol Last Admin: 09/19/18 17:40 Dose: 1,000 mg Vitamin B Complex/Vit C/Folic Acid (Nephro-Fortino) 1 tab PO 0800 [facility] Last Admin: 09/19/18 11:35 Dose: 1 tab - Labs Labs: 09/17/18 07:33 09/17/18 07:33 PT 25.5 SECONDS (9.7-12.2) H 08/31/18 20:08 INR 2.3 08/31/18 20:08 APTT 34 SECONDS (21-34) 08/31/18 12:32 - Head Exam Head Exam: ATRAUMATIC - Eye Exam Eye Exam: Normal appearance - ENT Exam ENT Exam: Mucous Membranes Dry - Respiratory Exam Respiratory Exam: NORMAL BREATHING PATTERN - Cardiovascular Exam Cardiovascular Exam: +S1, +S2 - GI/Abdominal Exam GI & Abdominal Exam: Normal Bowel Sounds Assessment and Plan (1) Anemia Assessment & Plan: prior work up consistent with anemia of chronic disease anemia of CKD - KESHAWN per renal transfusion support PRN no iron, b12, folate deficiency Status: Acute
--- NOTE | 2018-09-19 22:21 | CP.PCM.PN ---
Subjective - Date & Time of Evaluation Date of Evaluation: 09/16/18 Time of Evaluation: 12:00 - Subjective Subjective: No complaints. Objective - Vital Signs/Intake and Output Vital Signs (last 24 hours): Temp Pulse Resp BP Pulse Ox 98.2 F 111 H 20 120/71 96 09/19/18 16:00 09/19/18 16:00 09/19/18 16:00 09/19/18 17:40 09/19/18 16:00 - Medications Medications: Current Medications Acetaminophen (Tylenol 325mg Tab) 650 mg PO Q6 PRN PRN Reason: pain Last Admin: 09/16/18 09:15 Dose: 650 mg Calcium/Vitamin D (Oyster Shell Calcium/Vitamin D 500 Mg-200 Iu) 1 tab PO BID [facility] Last Admin: 09/19/18 17:41 Dose: 1 tab Enoxaparin Sodium (Lovenox) 40 mg SC DAILY [facility] Last Admin: 09/19/18 11:37 Dose: 40 mg Ergocalciferol (Drisdol 50,000 Intl Units Cap) 1 cap PO Q7D [facility] Last Admin: 09/15/18 13:41 Dose: 1 cap Ferrous Gluconate (Fergon) 324 mg PO TID [facility] Last Admin: 09/19/18 17:40 Dose: 324 mg Fluconazole (Diflucan) 100 mg PO DAILY [facility]; Protocol Last Admin: 09/19/18 11:35 Dose: 100 mg Furosemide (Lasix) 40 mg PO DAILY [facility] Gabapentin (Neurontin) 100 mg PO TID [facility] Last Admin: 09/19/18 17:40 Dose: 100 mg Meropenem 500 mg/ Sodium (Chloride) 100 mls @ 100 mls/hr IVPB Q12H [facility]; Protocol Last Admin: 09/19/18 17:39 Dose: 100 mls/hr Losartan Potassium (Cozaar) 25 mg PO DAILY [facility] Last Admin: 09/19/18 11:37 Dose: 25 mg Magnesium Oxide (Mag-Ox) 400 mg PO BID [facility] Last Admin: 09/19/18 17:40 Dose: 400 mg Metoprolol Tartrate (Lopressor) 25 mg PO 0800,1700 [facility] Last Admin: 09/19/18 17:40 Dose: 25 mg Nystatin (Nystop Topical Powder) 0 gm TOP TID [facility] Last Admin: 09/19/18 17:43 Dose: 1 applic Ondansetron HCl (Zofran Inj) 4 mg IVP Q6H PRN PRN Reason: nausea Last Admin: 09/13/18 17:00 Dose: 4 mg Pantoprazole Sodium (Protonix Ec Tab) 40 mg PO DAILY [facility] Last Admin: 09/19/18 11:35 Dose: 40 mg Potassium Chloride (Potassium Chloride Oral Soln) 20 meq PO BID [facility] Last Admin: 09/19/18 17:40 Dose: 20 meq Tramadol HCl (Ultram) 25 mg PO TID PRN PRN Reason: Pain, severe (8-10) Last Admin: 09/16/18 10:27 Dose: 25 mg Valacyclovir HCl (Valtrex) 1,000 mg PO TID [facility]; Protocol Last Admin: 09/19/18 17:40 Dose: 1,000 mg Vitamin B Complex/Vit C/Folic Acid (Nephro-Fortino) 1 tab PO 0800 [facility] Last Admin: 09/19/18 11:35 Dose: 1 tab - Labs Labs: 09/17/18 07:33 09/17/18 07:33 PT 25.5 SECONDS (9.7-12.2) H 08/31/18 20:08 INR 2.3 08/31/18 20:08 APTT 34 SECONDS (21-34) 08/31/18 12:32 - Head Exam Head Exam: ATRAUMATIC - Eye Exam Eye Exam: Normal appearance - ENT Exam ENT Exam: Mucous Membranes Dry - Respiratory Exam Respiratory Exam: NORMAL BREATHING PATTERN - Cardiovascular Exam Cardiovascular Exam: +S1, +S2 - GI/Abdominal Exam GI & Abdominal Exam: Normal Bowel Sounds Assessment and Plan (1) Anemia Assessment & Plan: prior work up consistent with anemia of chronic disease transfusion support PRN no iron, b12, folate deficiency Status: Acute
--- NOTE | 2018-09-19 22:22 | CP.PCM.PN ---
Subjective - Date & Time of Evaluation Date of Evaluation: 09/17/18 Time of Evaluation: 17:00 - Subjective Subjective: No complaints. Objective - Vital Signs/Intake and Output Vital Signs (last 24 hours): Temp Pulse Resp BP Pulse Ox 98.2 F 111 H 20 120/71 96 09/19/18 16:00 09/19/18 16:00 09/19/18 16:00 09/19/18 17:40 09/19/18 16:00 - Medications Medications: Current Medications Acetaminophen (Tylenol 325mg Tab) 650 mg PO Q6 PRN PRN Reason: pain Last Admin: 09/16/18 09:15 Dose: 650 mg Calcium/Vitamin D (Oyster Shell Calcium/Vitamin D 500 Mg-200 Iu) 1 tab PO BID [facility] Last Admin: 09/19/18 17:41 Dose: 1 tab Enoxaparin Sodium (Lovenox) 40 mg SC DAILY [facility] Last Admin: 09/19/18 11:37 Dose: 40 mg Ergocalciferol (Drisdol 50,000 Intl Units Cap) 1 cap PO Q7D [facility] Last Admin: 09/15/18 13:41 Dose: 1 cap Ferrous Gluconate (Fergon) 324 mg PO TID [facility] Last Admin: 09/19/18 17:40 Dose: 324 mg Fluconazole (Diflucan) 100 mg PO DAILY [facility]; Protocol Last Admin: 09/19/18 11:35 Dose: 100 mg Furosemide (Lasix) 40 mg PO DAILY [facility] Gabapentin (Neurontin) 100 mg PO TID [facility] Last Admin: 09/19/18 17:40 Dose: 100 mg Meropenem 500 mg/ Sodium (Chloride) 100 mls @ 100 mls/hr IVPB Q12H [facility]; Protocol Last Admin: 09/19/18 17:39 Dose: 100 mls/hr Losartan Potassium (Cozaar) 25 mg PO DAILY [facility] Last Admin: 09/19/18 11:37 Dose: 25 mg Magnesium Oxide (Mag-Ox) 400 mg PO BID [facility] Last Admin: 09/19/18 17:40 Dose: 400 mg Metoprolol Tartrate (Lopressor) 25 mg PO 0800,1700 [facility] Last Admin: 09/19/18 17:40 Dose: 25 mg Nystatin (Nystop Topical Powder) 0 gm TOP TID [facility] Last Admin: 09/19/18 17:43 Dose: 1 applic Ondansetron HCl (Zofran Inj) 4 mg IVP Q6H PRN PRN Reason: nausea Last Admin: 09/13/18 17:00 Dose: 4 mg Pantoprazole Sodium (Protonix Ec Tab) 40 mg PO DAILY [facility] Last Admin: 09/19/18 11:35 Dose: 40 mg Potassium Chloride (Potassium Chloride Oral Soln) 20 meq PO BID [facility] Last Admin: 09/19/18 17:40 Dose: 20 meq Tramadol HCl (Ultram) 25 mg PO TID PRN PRN Reason: Pain, severe (8-10) Last Admin: 09/16/18 10:27 Dose: 25 mg Valacyclovir HCl (Valtrex) 1,000 mg PO TID [facility]; Protocol Last Admin: 09/19/18 17:40 Dose: 1,000 mg Vitamin B Complex/Vit C/Folic Acid (Nephro-Fortino) 1 tab PO 0800 [facility] Last Admin: 09/19/18 11:35 Dose: 1 tab - Labs Labs: 09/17/18 07:33 09/17/18 07:33 PT 25.5 SECONDS (9.7-12.2) H 08/31/18 20:08 INR 2.3 08/31/18 20:08 APTT 34 SECONDS (21-34) 08/31/18 12:32 - Head Exam Head Exam: ATRAUMATIC - Eye Exam Eye Exam: Normal appearance - ENT Exam ENT Exam: Mucous Membranes Dry - Respiratory Exam Respiratory Exam: NORMAL BREATHING PATTERN - Cardiovascular Exam Cardiovascular Exam: +S1, +S2 - GI/Abdominal Exam GI & Abdominal Exam: Normal Bowel Sounds Assessment and Plan (1) Anemia Assessment & Plan: prior work up consistent with anemia of chronic disease transfusion support PRN no iron, b12, folate deficiency Status: Acute
--- NOTE | 2018-09-19 22:23 | CP.PCM.PN ---
Subjective - Date & Time of Evaluation Date of Evaluation: 09/19/18 Time of Evaluation: 19:00 - Subjective Subjective: No complaints. Objective - Vital Signs/Intake and Output Vital Signs (last 24 hours): Temp Pulse Resp BP Pulse Ox 98.2 F 111 H 20 120/71 96 09/19/18 16:00 09/19/18 16:00 09/19/18 16:00 09/19/18 17:40 09/19/18 16:00 - Medications Medications: Current Medications Acetaminophen (Tylenol 325mg Tab) 650 mg PO Q6 PRN PRN Reason: pain Last Admin: 09/16/18 09:15 Dose: 650 mg Calcium/Vitamin D (Oyster Shell Calcium/Vitamin D 500 Mg-200 Iu) 1 tab PO BID [facility] Last Admin: 09/19/18 17:41 Dose: 1 tab Enoxaparin Sodium (Lovenox) 40 mg SC DAILY [facility] Last Admin: 09/19/18 11:37 Dose: 40 mg Ergocalciferol (Drisdol 50,000 Intl Units Cap) 1 cap PO Q7D [facility] Last Admin: 09/15/18 13:41 Dose: 1 cap Ferrous Gluconate (Fergon) 324 mg PO TID [facility] Last Admin: 09/19/18 17:40 Dose: 324 mg Fluconazole (Diflucan) 100 mg PO DAILY [facility]; Protocol Last Admin: 09/19/18 11:35 Dose: 100 mg Furosemide (Lasix) 40 mg PO DAILY [facility] Gabapentin (Neurontin) 100 mg PO TID [facility] Last Admin: 09/19/18 17:40 Dose: 100 mg Meropenem 500 mg/ Sodium (Chloride) 100 mls @ 100 mls/hr IVPB Q12H [facility]; Protocol Last Admin: 09/19/18 17:39 Dose: 100 mls/hr Losartan Potassium (Cozaar) 25 mg PO DAILY [facility] Last Admin: 09/19/18 11:37 Dose: 25 mg Magnesium Oxide (Mag-Ox) 400 mg PO BID [facility] Last Admin: 09/19/18 17:40 Dose: 400 mg Metoprolol Tartrate (Lopressor) 25 mg PO 0800,1700 [facility] Last Admin: 09/19/18 17:40 Dose: 25 mg Nystatin (Nystop Topical Powder) 0 gm TOP TID [facility] Last Admin: 09/19/18 17:43 Dose: 1 applic Ondansetron HCl (Zofran Inj) 4 mg IVP Q6H PRN PRN Reason: nausea Last Admin: 09/13/18 17:00 Dose: 4 mg Pantoprazole Sodium (Protonix Ec Tab) 40 mg PO DAILY [facility] Last Admin: 09/19/18 11:35 Dose: 40 mg Potassium Chloride (Potassium Chloride Oral Soln) 20 meq PO BID [facility] Last Admin: 09/19/18 17:40 Dose: 20 meq Tramadol HCl (Ultram) 25 mg PO TID PRN PRN Reason: Pain, severe (8-10) Last Admin: 09/16/18 10:27 Dose: 25 mg Valacyclovir HCl (Valtrex) 1,000 mg PO TID [facility]; Protocol Last Admin: 09/19/18 17:40 Dose: 1,000 mg Vitamin B Complex/Vit C/Folic Acid (Nephro-Fortino) 1 tab PO 0800 [facility] Last Admin: 09/19/18 11:35 Dose: 1 tab - Labs Labs: 09/17/18 07:33 09/17/18 07:33 PT 25.5 SECONDS (9.7-12.2) H 08/31/18 20:08 INR 2.3 08/31/18 20:08 APTT 34 SECONDS (21-34) 08/31/18 12:32 - Head Exam Head Exam: ATRAUMATIC - Eye Exam Eye Exam: Normal appearance - ENT Exam ENT Exam: Mucous Membranes Dry - Respiratory Exam Respiratory Exam: NORMAL BREATHING PATTERN - Cardiovascular Exam Cardiovascular Exam: +S1, +S2 - GI/Abdominal Exam GI & Abdominal Exam: Normal Bowel Sounds Assessment and Plan (1) Anemia Assessment & Plan: prior work up consistent with anemia of chronic disease transfusion support PRN no iron, b12, folate deficiency Status: Acute
--- NOTE | 2018-09-19 23:49 | CP.PCM.PN ---
Subjective - Date & Time of Evaluation Date of Evaluation: 09/19/18 Time of Evaluation: 08:20 - Subjective Subjective: clinically same Objective - Vital Signs/Intake and Output Vital Signs (last 24 hours): Temp Pulse Resp BP Pulse Ox 98.2 F 111 H 20 120/71 96 09/19/18 16:00 09/19/18 16:00 09/19/18 16:00 09/19/18 17:40 09/19/18 16:00 Intake and Output: 09/19/18 09/20/18 18:59 06:59 Intake Total 530 Output Total 150 Balance 380 - Medications Medications: Current Medications Acetaminophen (Tylenol 325mg Tab) 650 mg PO Q6 PRN PRN Reason: pain Last Admin: 09/16/18 09:15 Dose: 650 mg Calcium/Vitamin D (Oyster Shell Calcium/Vitamin D 500 Mg-200 Iu) 1 tab PO BID [facility] Last Admin: 09/19/18 17:41 Dose: 1 tab Enoxaparin Sodium (Lovenox) 40 mg SC DAILY [facility] Last Admin: 09/19/18 11:37 Dose: 40 mg Ergocalciferol (Drisdol 50,000 Intl Units Cap) 1 cap PO Q7D [facility] Last Admin: 09/15/18 13:41 Dose: 1 cap Ferrous Gluconate (Fergon) 324 mg PO TID [facility] Last Admin: 09/19/18 17:40 Dose: 324 mg Fluconazole (Diflucan) 100 mg PO DAILY [facility]; Protocol Last Admin: 09/19/18 11:35 Dose: 100 mg Furosemide (Lasix) 40 mg PO DAILY [facility] Gabapentin (Neurontin) 100 mg PO TID [facility] Last Admin: 09/19/18 17:40 Dose: 100 mg Meropenem 500 mg/ Sodium (Chloride) 100 mls @ 100 mls/hr IVPB Q12H [facility]; Protocol Last Admin: 09/19/18 17:39 Dose: 100 mls/hr Losartan Potassium (Cozaar) 25 mg PO DAILY [facility] Last Admin: 09/19/18 11:37 Dose: 25 mg Magnesium Oxide (Mag-Ox) 400 mg PO BID [facility] Last Admin: 09/19/18 17:40 Dose: 400 mg Metoprolol Tartrate (Lopressor) 25 mg PO 0800,1700 [facility] Last Admin: 09/19/18 17:40 Dose: 25 mg Nystatin (Nystop Topical Powder) 0 gm TOP TID [facility] Last Admin: 09/19/18 17:43 Dose: 1 applic Ondansetron HCl (Zofran Inj) 4 mg IVP Q6H PRN PRN Reason: nausea Last Admin: 09/13/18 17:00 Dose: 4 mg Pantoprazole Sodium (Protonix Ec Tab) 40 mg PO DAILY [facility] Last Admin: 09/19/18 11:35 Dose: 40 mg Potassium Chloride (Potassium Chloride Oral Soln) 20 meq PO BID [facility] Last Admin: 09/19/18 17:40 Dose: 20 meq Tramadol HCl (Ultram) 25 mg PO TID PRN PRN Reason: Pain, severe (8-10) Last Admin: 09/16/18 10:27 Dose: 25 mg Valacyclovir HCl (Valtrex) 1,000 mg PO TID [facility]; Protocol Last Admin: 09/19/18 17:40 Dose: 1,000 mg Vitamin B Complex/Vit C/Folic Acid (Nephro-Fortino) 1 tab PO 0800 [facility] Last Admin: 09/19/18 11:35 Dose: 1 tab - Labs Labs: 09/17/18 07:33 09/17/18 07:33 PT 25.5 SECONDS (9.7-12.2) H 08/31/18 20:08 INR 2.3 08/31/18 20:08 APTT 34 SECONDS (21-34) 08/31/18 12:32 - Constitutional Appears: Well - Head Exam Head Exam: ATRAUMATIC, NORMAL INSPECTION, NORMOCEPHALIC - Eye Exam Eye Exam: EOMI, Normal appearance, PERRL Pupil Exam: NORMAL ACCOMODATION, PERRL - ENT Exam ENT Exam: Mucous Membranes Moist, Normal Exam - Neck Exam Neck Exam: Full ROM, Normal Inspection. absent: Lymphadenopathy - Respiratory Exam Respiratory Exam: Decreased Breath Sounds - Cardiovascular Exam Cardiovascular Exam: REGULAR RHYTHM, +S1, +S2 - GI/Abdominal Exam GI & Abdominal Exam: Soft, Diminished Bowel Sounds - Rectal Exam Rectal Exam: Deferred
[2018-09-20] MEDS: Meropenem 500 MG in Sodium Chloride 0.9% 100 ML IVPB SCH ×2 (05:36→17:03)
[2018-09-20] MEDS: Calcium-Vit D 500 mg-200 Units Tab UD PO SCH ×2 (09:57→18:04)
[2018-09-20] MEDS: Pantoprazole 40 mg EC Tab PO SCH (09:57)
[2018-09-20] MEDS: Multivitamin Vitamin B Complex (Nephro-Vite) Tab PO SCH (09:57)
[2018-09-20] MEDS: Potassium Chloride 20 mEq/15 ml LIQ UD PO SCH ×2 (09:57→18:05)
[2018-09-20] MEDS: Enoxaparin 40 mg Syringe SC SCH (09:57)
[2018-09-20] MEDS: Nystatin 100,000 Units/gm Topical Pow(15 gm) TOP SCH ×3 (09:58→18:19)
[2018-09-20] MEDS: Magnesium Oxide 400 mg Tab UD PO SCH ×2 (10:57→18:04)
--- NOTE | 2018-09-20 12:49 | CP.PCM.PN ---
Subjective - Date & Time of Evaluation Date of Evaluation: 09/20/18 Time of Evaluation: 08:20 - Subjective Subjective: clinically same Objective - Vital Signs/Intake and Output Vital Signs (last 24 hours): Temp Pulse Resp BP Pulse Ox 98.0 F 114 H 20 116/78 98 09/20/18 07:15 09/20/18 07:15 09/20/18 07:15 09/20/18 10:57 09/20/18 07:15 Intake and Output: 09/20/18 09/20/18 06:59 18:59 Intake Total 530 Output Total 550 Balance -20 - Medications Medications: Current Medications Acetaminophen (Tylenol 325mg Tab) 650 mg PO Q6 PRN PRN Reason: pain Last Admin: 09/16/18 09:15 Dose: 650 mg Calcium/Vitamin D (Oyster Shell Calcium/Vitamin D 500 Mg-200 Iu) 1 tab PO BID [facility] Last Admin: 09/20/18 09:57 Dose: 1 tab Enoxaparin Sodium (Lovenox) 40 mg SC DAILY [facility] Last Admin: 09/20/18 09:57 Dose: 40 mg Ergocalciferol (Drisdol 50,000 Intl Units Cap) 1 cap PO Q7D [facility] Last Admin: 09/15/18 13:41 Dose: 1 cap Ferrous Gluconate (Fergon) 324 mg PO TID [facility] Last Admin: 09/20/18 09:56 Dose: 324 mg Fluconazole (Diflucan) 100 mg PO DAILY [facility]; Protocol Last Admin: 09/20/18 09:57 Dose: 100 mg Furosemide (Lasix) 40 mg PO DAILY [facility] Last Admin: 09/20/18 10:57 Dose: 40 mg Gabapentin (Neurontin) 100 mg PO TID [facility] Last Admin: 09/20/18 09:56 Dose: 100 mg Meropenem 500 mg/ Sodium (Chloride) 100 mls @ 100 mls/hr IVPB Q12H [facility]; Protocol Last Admin: 09/20/18 05:36 Dose: 100 mls/hr Losartan Potassium (Cozaar) 25 mg PO DAILY [facility] Last Admin: 09/20/18 10:57 Dose: 25 mg Magnesium Oxide (Mag-Ox) 400 mg PO BID [facility] Last Admin: 09/20/18 10:57 Dose: 400 mg Metoprolol Tartrate (Lopressor) 25 mg PO 0800,1700 [facility] Last Admin: 09/20/18 09:56 Dose: 25 mg Nystatin (Nystop Topical Powder) 0 gm TOP TID [facility] Last Admin: 09/20/18 09:58 Dose: 1 applic Ondansetron HCl (Zofran Inj) 4 mg IVP Q6H PRN PRN Reason: nausea Last Admin: 09/13/18 17:00 Dose: 4 mg Pantoprazole Sodium (Protonix Ec Tab) 40 mg PO DAILY [facility] Last Admin: 09/20/18 09:57 Dose: 40 mg Potassium Chloride (Potassium Chloride Oral Soln) 20 meq PO BID [facility] Last Admin: 09/20/18 09:57 Dose: 20 meq Tramadol HCl (Ultram) 25 mg PO TID PRN PRN Reason: Pain, severe (8-10) Last Admin: 09/16/18 10:27 Dose: 25 mg Valacyclovir HCl (Valtrex) 1,000 mg PO TID [facility]; Protocol Last Admin: 09/20/18 09:56 Dose: 1,000 mg Vitamin B Complex/Vit C/Folic Acid (Nephro-Fortino) 1 tab PO 0800 [facility] Last Admin: 09/20/18 09:57 Dose: 1 tab - Labs Labs: 09/17/18 07:33 09/17/18 07:33 PT 25.5 SECONDS (9.7-12.2) H 08/31/18 20:08 INR 2.3 08/31/18 20:08 APTT 34 SECONDS (21-34) 08/31/18 12:32 - Constitutional Appears: Well - Head Exam Head Exam: ATRAUMATIC, NORMAL INSPECTION, NORMOCEPHALIC - Eye Exam Eye Exam: EOMI, Normal appearance, PERRL Pupil Exam: NORMAL ACCOMODATION, PERRL - ENT Exam ENT Exam: Mucous Membranes Moist, Normal Exam - Neck Exam Neck Exam: Full ROM, Normal Inspection. absent: Lymphadenopathy - Respiratory Exam Respiratory Exam: Decreased Breath Sounds - Cardiovascular Exam Cardiovascular Exam: REGULAR RHYTHM, +S1, +S2 - GI/Abdominal Exam GI & Abdominal Exam: Soft, Diminished Bowel Sounds - Rectal Exam Rectal Exam: Deferred
--- NOTE | 2018-09-20 14:45 | CP.PCM.PN ---
Subjective - Date & Time of Evaluation Date of Evaluation: 09/20/18 Time of Evaluation: 14:45 - Subjective Subjective: Nephrology Consultation Note Assessment: stable Acute Kidney Injury (N17.9) likely due to ATN and pre-renal state: recent work up for GN neg; resolved HAGMA with ketonemia likely due to ROBIN and ketoacidosis hypovolemic hyponatremia, Hypokalemia, hypocalcemia and hypomagnesemia likely due to GI (due to diarrhoea) and renal loss (was on lasix) with limited oral intake severe hypoalbuminemia with malnutration with anasarca Hypertensive Chronic Kidney Disease (I12.9) Chronic Kidney Disease (N18.9) Stage 3 with 55 mg albuminuria Anemia acute on chronic severe Mitral regurg with infective endocarditis, depression/Anxiety shingles rash Plan Maintain hemodynamics stable. Avoid hypotension. Patient not on ACEI/ARB due to recent ROBIN, will add low dose Monitor Input/Output, daily weights and renal function with basic metabolic panel started Fe, MVI, and weekly Vit D, OScal D continue with lasix 40 mg oral daily with K and Mag supplements PRBC as needed. had transfusion 09/02/18. supplement lytes as needed on valtrex and meds to control neuropathic pain Dose meds/antibiotics for improved GFR. Glycemic control Further work up for as per primary team pt stable from renal perspective Thanks for allowing me to participate in care of your patient. Will follow patient with you. Please call if any Qs. had d/w team Dr Heriberto Hernandez Office: [phone] reason for consult; ROBIN and electrolytes abnormalities HPI: pt is a 62 F with hx of HTN, depression who was recently admitted to hospital with ROBIN required few session of HD then improved with cr 1.2, also with infective endocarditis with severe MR but pt refused surgery and decided only for IV antibiotics treatments came as was feeling weak, found to have severe electrolytes depletion and renal consult for ROBIN. pt feels nervous. reports decreased oral intake and c.o loose stool besides that not providing much hx nor recent Iv contrast. noted low BP ROS: denies SOB, chest pain. feels better except Rt upper abdomen pain. no diarrhoea Physical Examination: General Appearance: comfortable, in no acute respiratory distress, better appearing but debilitated Vitals reviewed and noted as below Head; Atraumatic, normocephalic ENT: WNL EYES: Pupils are equal, round and reactive to light accommodation. Eye muscles and extraocular movement intact. Sclera is anicteric. Neck; supple no lymphadenopathy, no thyromegaly or bruit Lungs: Normal respiratory rate/effort. Breath sounds b/l decreased at bases Heart: normal rate. s1s2 normal. No rub or gallop. SM + at apex/LSB Extremities: 1-2+ edema. No varicose veins Neurological: Patient is alert awake oriented follow commands Skin: Warm and dry. Normal turgor. Palpitation: Normal elasticity for age. shingles rash RUQ dermatome Abdomen: Abdomen is soft. Bowel sounds +. There is no abdominal tenderness, no guarding/rigidity no organomegaly Psych: lack insight. anxious MSK: no joint tenderness or swelling. Digits and nails normal, no deformity : kidney or bladder not palpable Labs/imaging reviewed. Past medical history, past surgical history, family history, social history, allergy reviewed and noted as below Family hx: no hx of CKD. Rest non-contributory work up: Hep B/C/HIV neg renal imaging: unremarkable A1c 5.5% UA no protein 1+ blood LINDSEY/ANCA neg, K/L ratio WNLTSAT 9% ferritin 221 Vit D <12.8 PTH 268 FENa 0.3% TTKG 15 Objective - Vital Signs/Intake and Output Vital Signs (last 24 hours): Temp Pulse Resp BP Pulse Ox 98.0 F 114 H 20 116/78 98 09/20/18 07:15 09/20/18 07:15 09/20/18 07:15 09/20/18 10:57 09/20/18 07:15 Intake and Output: 09/20/18 09/20/18 06:59 18:59 Intake Total 530 320 Output Total 550 350 Balance -20 -30 - Medications Medications: Current Medications Acetaminophen (Tylenol 325mg Tab) 650 mg PO Q6 PRN PRN Reason: pain Last Admin: 09/16/18 09:15 Dose: 650 mg Calcium/Vitamin D (Oyster Shell Calcium/Vitamin D 500 Mg-200 Iu) 1 tab PO BID [facility] Last Admin: 09/20/18 09:57 Dose: 1 tab Enoxaparin Sodium (Lovenox) 40 mg SC DAILY [facility] Last Admin: 09/20/18 09:57 Dose: 40 mg Ergocalciferol (Drisdol 50,000 Intl Units Cap) 1 cap PO Q7D [facility] Last Admin: 09/15/18 13:41 Dose: 1 cap Ferrous Gluconate (Fergon) 324 mg PO TID [facility] Last Admin: 09/20/18 13:22 Dose: 324 mg Fluconazole (Diflucan) 100 mg PO DAILY [facility]; Protocol Last Admin: 09/20/18 09:57 Dose: 100 mg Furosemide (Lasix) 40 mg PO DAILY [facility] Last Admin: 09/20/18 10:57 Dose: 40 mg Gabapentin (Neurontin) 100 mg PO TID [facility] Last Admin: 09/20/18 13:22 Dose: 100 mg Meropenem 500 mg/ Sodium (Chloride) 100 mls @ 100 mls/hr IVPB Q12H [facility]; Protocol Last Admin: 09/20/18 05:36 Dose: 100 mls/hr Losartan Potassium (Cozaar) 25 mg PO DAILY [facility] Last Admin: 09/20/18 10:57 Dose: 25 mg Magnesium Oxide (Mag-Ox) 400 mg PO BID [facility] Last Admin: 09/20/18 10:57 Dose: 400 mg Metoprolol Tartrate (Lopressor) 25 mg PO 0800,1700 [facility] Last Admin: 09/20/18 09:56 Dose: 25 mg Nystatin (Nystop Topical Powder) 0 gm TOP TID [facility] Last Admin: 09/20/18 14:31 Dose: 1 applic Ondansetron HCl (Zofran Inj) 4 mg IVP Q6H PRN PRN Reason: nausea Last Admin: 09/13/18 17:00 Dose: 4 mg Pantoprazole Sodium (Protonix Ec Tab) 40 mg PO DAILY [facility] Last Admin: 09/20/18 09:57 Dose: 40 mg Potassium Chloride (Potassium Chloride Oral Soln) 20 meq PO BID [facility] Last Admin: 09/20/18 09:57 Dose: 20 meq Tramadol HCl (Ultram) 25 mg PO TID PRN PRN Reason: Pain, severe (8-10) Last Admin: 09/16/18 10:27 Dose: 25 mg Valacyclovir HCl (Valtrex) 1,000 mg PO TID [facility]; Protocol Last Admin: 09/20/18 13:22 Dose: 1,000 mg Vitamin B Complex/Vit C/Folic Acid (Nephro-Fortino) 1 tab PO 0800 [facility] Last Admin: 09/20/18 09:57 Dose: 1 tab - Labs Labs: 09/17/18 07:33 09/17/18 07:33 PT 25.5 SECONDS (9.7-12.2) H 08/31/18 20:08 INR 2.3 08/31/18 20:08 APTT 34 SECONDS (21-34) 08/31/18 12:32
--- NOTE | 2018-09-20 21:13 | CP.PCM.PN ---
Subjective - Date & Time of Evaluation Date of Evaluation: 09/20/18 Time of Evaluation: 18:00 - Subjective Subjective: Has some abdominal pain. Objective - Vital Signs/Intake and Output Vital Signs (last 24 hours): Temp Pulse Resp BP Pulse Ox 97.9 F 119 H 20 125/75 98 09/20/18 14:00 09/20/18 14:00 09/20/18 14:00 09/20/18 17:26 09/20/18 14:00 Intake and Output: 09/20/18 09/21/18 18:59 06:59 Intake Total 320 Output Total 350 Balance -30 - Medications Medications: Current Medications Acetaminophen (Tylenol 325mg Tab) 650 mg PO Q6 PRN PRN Reason: pain Last Admin: 09/16/18 09:15 Dose: 650 mg Calcium/Vitamin D (Oyster Shell Calcium/Vitamin D 500 Mg-200 Iu) 1 tab PO BID [facility] Last Admin: 09/20/18 18:04 Dose: 1 tab Enoxaparin Sodium (Lovenox) 40 mg SC DAILY [facility] Last Admin: 09/20/18 09:57 Dose: 40 mg Ergocalciferol (Drisdol 50,000 Intl Units Cap) 1 cap PO Q7D [facility] Last Admin: 09/15/18 13:41 Dose: 1 cap Ferrous Gluconate (Fergon) 324 mg PO TID [facility] Last Admin: 09/20/18 18:04 Dose: 324 mg Fluconazole (Diflucan) 100 mg PO DAILY [facility]; Protocol Last Admin: 09/20/18 09:57 Dose: 100 mg Furosemide (Lasix) 40 mg PO DAILY [facility] Last Admin: 09/20/18 10:57 Dose: 40 mg Gabapentin (Neurontin) 100 mg PO TID [facility] Last Admin: 09/20/18 18:05 Dose: 100 mg Meropenem 500 mg/ Sodium (Chloride) 100 mls @ 100 mls/hr IVPB Q12H [facility]; Protocol Last Admin: 09/20/18 17:03 Dose: 100 mls/hr Losartan Potassium (Cozaar) 25 mg PO DAILY [facility] Last Admin: 09/20/18 10:57 Dose: 25 mg Magnesium Oxide (Mag-Ox) 400 mg PO BID [facility] Last Admin: 09/20/18 18:04 Dose: 400 mg Metoprolol Tartrate (Lopressor) 25 mg PO 0800,1700 [facility] Last Admin: 09/20/18 17:26 Dose: 25 mg Nystatin (Nystop Topical Powder) 0 gm TOP TID [facility] Last Admin: 09/20/18 18:19 Dose: 1 applic Ondansetron HCl (Zofran Inj) 4 mg IVP Q6H PRN PRN Reason: nausea Last Admin: 09/13/18 17:00 Dose: 4 mg Pantoprazole Sodium (Protonix Ec Tab) 40 mg PO DAILY [facility] Last Admin: 09/20/18 09:57 Dose: 40 mg Potassium Chloride (Potassium Chloride Oral Soln) 20 meq PO BID [facility] Last Admin: 09/20/18 18:05 Dose: 20 meq Tramadol HCl (Ultram) 25 mg PO TID PRN PRN Reason: Pain, severe (8-10) Last Admin: 09/16/18 10:27 Dose: 25 mg Valacyclovir HCl (Valtrex) 1,000 mg PO TID [facility]; Protocol Last Admin: 09/20/18 18:04 Dose: 1,000 mg Vitamin B Complex/Vit C/Folic Acid (Nephro-Fortino) 1 tab PO 0800 [facility] Last Admin: 09/20/18 09:57 Dose: 1 tab - Labs Labs: 09/17/18 07:33 09/17/18 07:33 PT 25.5 SECONDS (9.7-12.2) H 08/31/18 20:08 INR 2.3 08/31/18 20:08 APTT 34 SECONDS (21-34) 08/31/18 12:32 - Head Exam Head Exam: ATRAUMATIC - Eye Exam Eye Exam: Normal appearance - ENT Exam ENT Exam: Mucous Membranes Dry - Respiratory Exam Respiratory Exam: NORMAL BREATHING PATTERN - Cardiovascular Exam Cardiovascular Exam: +S1, +S2 - GI/Abdominal Exam GI & Abdominal Exam: Normal Bowel Sounds Assessment and Plan (1) Anemia Assessment & Plan: prior work up consistent with anemia of chronic disease transfusion support PRN no iron, b12, folate deficiency Status: Acute
[2018-09-21] MEDS: Meropenem 500 MG in Sodium Chloride 0.9% 100 ML IVPB SCH ×2 (05:33→17:43)
[2018-09-21] MEDS: Calcium-Vit D 500 mg-200 Units Tab UD PO SCH ×2 (09:35→18:43)
[2018-09-21] MEDS: Pantoprazole 40 mg EC Tab PO SCH (09:35)
[2018-09-21] MEDS: Magnesium Oxide 400 mg Tab UD PO SCH ×2 (09:35→18:43)
[2018-09-21] MEDS: Potassium Chloride 20 mEq/15 ml LIQ UD PO SCH ×2 (09:36→18:43)
[2018-09-21] MEDS: Enoxaparin 40 mg Syringe SC SCH (09:36)
[2018-09-21] MEDS: Multivitamin Vitamin B Complex (Nephro-Vite) Tab PO SCH (09:37)
[2018-09-21] MEDS: Nystatin 100,000 Units/gm Topical Pow(15 gm) TOP SCH ×3 (09:38→18:45)
--- NOTE | 2018-09-21 15:21 | CP.PCM.PN ---
Subjective - Date & Time of Evaluation Date of Evaluation: 09/21/18 Time of Evaluation: 15:20 - Subjective Subjective: Nephrology Consultation Note Assessment: stable Acute Kidney Injury (N17.9) likely due to ATN and pre-renal state: recent work up for GN neg; resolved HAGMA with ketonemia likely due to ROBIN and ketoacidosis hypovolemic hyponatremia, Hypokalemia, hypocalcemia and hypomagnesemia likely due to GI (due to diarrhoea) and renal loss (was on lasix) with limited oral intake severe hypoalbuminemia with malnutration with anasarca Hypertensive Chronic Kidney Disease (I12.9) Chronic Kidney Disease (N18.9) Stage 3 with 55 mg albuminuria Anemia acute on chronic severe Mitral regurg with infective endocarditis, depression/Anxiety shingles rash Plan Maintain hemodynamics stable. Avoid hypotension. Patient not on ACEI/ARB due to recent ROBIN, will add low dose losartan. lopressor increased to 50 bid Monitor Input/Output, daily weights and renal function with basic metabolic panel started Fe, MVI, and weekly Vit D, OScal D continue with lasix 40 mg oral daily with K and Mag supplements PRBC as needed. had transfusion 09/02/18. supplement lytes as needed on valtrex and meds to control neuropathic pain Dose meds/antibiotics for improved GFR. Glycemic control Further work up for as per primary team pt stable from renal perspective Thanks for allowing me to participate in care of your patient. Will follow patient with you. Please call if any Qs. had d/w team Dr Heriberto Hernandez Office: [phone] reason for consult; ROBIN and electrolytes abnormalities HPI: pt is a 62 F with hx of HTN, depression who was recently admitted to hospital with ROBIN required few session of HD then improved with cr 1.2, also with infective endocarditis with severe MR but pt refused surgery and decided only for IV antibiotics treatments came as was feeling weak, found to have severe electrolytes depletion and renal consult for ROBIN. pt feels nervous. reports decreased oral intake and c.o loose stool besides that not providing much hx nor recent Iv contrast. noted low BP ROS: denies SOB, chest pain. feels better except Rt upper abdomen pain. no diarrhoea Physical Examination: General Appearance: comfortable, in no acute respiratory distress, better appearing but debilitated Vitals reviewed and noted as below Head; Atraumatic, normocephalic ENT: WNL EYES: Pupils are equal, round and reactive to light accommodation. Eye muscles and extraocular movement intact. Sclera is anicteric. Neck; supple no lymphadenopathy, no thyromegaly or bruit Lungs: Normal respiratory rate/effort. Breath sounds b/l decreased at bases Heart: Increased rate. s1s2 normal. No rub or gallop. SM + at apex/LSB Extremities: 1-2+ edema. No varicose veins Neurological: Patient is alert awake oriented follow commands Skin: Warm and dry. Normal turgor. Palpitation: Normal elasticity for age. shingles rash RUQ dermatome Abdomen: Abdomen is soft. Bowel sounds +. There is no abdominal tenderness, no guarding/rigidity no organomegaly Psych: lack insight. anxious MSK: no joint tenderness or swelling. Digits and nails normal, no deformity : kidney or bladder not palpable Labs/imaging reviewed. Past medical history, past surgical history, family history, social history, allergy reviewed and noted as below Family hx: no hx of CKD. Rest non-contributory work up: Hep B/C/HIV neg renal imaging: unremarkable A1c 5.5% UA no protein 1+ blood LINDSEY/ANCA neg, K/L ratio WNLTSAT 9% ferritin 221 Vit D <12.8 PTH 268 FENa 0.3% TTKG 15 Objective - Vital Signs/Intake and Output Vital Signs (last 24 hours): Temp Pulse Resp BP Pulse Ox 97.2 F L 104 H 18 158/84 H 97 09/21/18 08:00 09/21/18 08:00 09/21/18 08:00 09/21/18 09:37 09/21/18 08:00 Intake and Output: 09/21/18 09/21/18 06:59 18:59 Intake Total 300 600 Output Total 800 400 Balance -500 200 - Medications Medications: Current Medications Acetaminophen (Tylenol 325mg Tab) 650 mg PO Q6 PRN PRN Reason: pain Last Admin: 09/16/18 09:15 Dose: 650 mg Calcium/Vitamin D (Oyster Shell Calcium/Vitamin D 500 Mg-200 Iu) 1 tab PO BID [facility] Last Admin: 09/21/18 09:35 Dose: 1 tab Enoxaparin Sodium (Lovenox) 40 mg SC DAILY [facility] Last Admin: 09/21/18 09:36 Dose: 40 mg Ergocalciferol (Drisdol 50,000 Intl Units Cap) 1 cap PO Q7D [facility] Last Admin: 09/15/18 13:41 Dose: 1 cap Ferrous Gluconate (Fergon) 324 mg PO TID [facility] Last Admin: 09/21/18 13:21 Dose: 324 mg Furosemide (Lasix) 40 mg PO DAILY [facility] Last Admin: 09/21/18 09:37 Dose: 40 mg Gabapentin (Neurontin) 100 mg PO TID [facility] Last Admin: 09/21/18 13:21 Dose: 100 mg Meropenem 500 mg/ Sodium (Chloride) 100 mls @ 100 mls/hr IVPB Q12H [facility]; Protocol Last Admin: 09/21/18 05:33 Dose: 100 mls/hr Losartan Potassium (Cozaar) 25 mg PO DAILY [facility] Last Admin: 09/21/18 09:36 Dose: 25 mg Magnesium Oxide (Mag-Ox) 400 mg PO BID [facility] Last Admin: 09/21/18 09:35 Dose: 400 mg Metoprolol Tartrate (Lopressor) 50 mg PO BID [facility] Last Admin: 09/21/18 10:39 Dose: Not Given Nystatin (Nystop Topical Powder) 0 gm TOP TID [facility] Last Admin: 09/21/18 13:21 Dose: 1 applic Ondansetron HCl (Zofran Inj) 4 mg IVP Q6H PRN PRN Reason: nausea Last Admin: 09/13/18 17:00 Dose: 4 mg Pantoprazole Sodium (Protonix Ec Tab) 40 mg PO DAILY [facility] Last Admin: 09/21/18 09:35 Dose: 40 mg Potassium Chloride (Potassium Chloride Oral Soln) 20 meq PO BID [facility] Last Admin: 09/21/18 09:36 Dose: 20 meq Tramadol HCl (Ultram) 25 mg PO TID PRN PRN Reason: Pain, severe (8-10) Last Admin: 09/16/18 10:27 Dose: 25 mg Vitamin B Complex/Vit C/Folic Acid (Nephro-Fortino) 1 tab PO 0800 [facility] Last Admin: 09/21/18 09:37 Dose: 1 tab - Labs Labs: 09/17/18 07:33 09/17/18 07:33 PT 25.5 SECONDS (9.7-12.2) H 08/31/18 20:08 INR 2.3 08/31/18 20:08 APTT 34 SECONDS (21-34) 08/31/18 12:32
--- NOTE | 2018-09-21 17:59 | CP.PCM.PN ---
Subjective - Date & Time of Evaluation Date of Evaluation: 09/21/18 Time of Evaluation: 07:40 - Subjective Subjective: clinically same Objective - Vital Signs/Intake and Output Vital Signs (last 24 hours): Temp Pulse Resp BP Pulse Ox 97.9 F 111 H 20 123/80 99 09/21/18 16:24 09/21/18 16:24 09/21/18 16:24 09/21/18 16:24 09/21/18 16:24 Intake and Output: 09/21/18 09/21/18 06:59 18:59 Intake Total 300 600 Output Total 800 400 Balance -500 200 - Medications Medications: Current Medications Acetaminophen (Tylenol 325mg Tab) 650 mg PO Q6 PRN PRN Reason: pain Last Admin: 09/16/18 09:15 Dose: 650 mg Calcium/Vitamin D (Oyster Shell Calcium/Vitamin D 500 Mg-200 Iu) 1 tab PO BID [facility] Last Admin: 09/21/18 09:35 Dose: 1 tab Enoxaparin Sodium (Lovenox) 40 mg SC DAILY [facility] Last Admin: 09/21/18 09:36 Dose: 40 mg Ergocalciferol (Drisdol 50,000 Intl Units Cap) 1 cap PO Q7D [facility] Last Admin: 09/15/18 13:41 Dose: 1 cap Ferrous Gluconate (Fergon) 324 mg PO TID [facility] Last Admin: 09/21/18 13:21 Dose: 324 mg Furosemide (Lasix) 40 mg PO DAILY [facility] Last Admin: 09/21/18 09:37 Dose: 40 mg Gabapentin (Neurontin) 100 mg PO TID [facility] Last Admin: 09/21/18 13:21 Dose: 100 mg Meropenem 500 mg/ Sodium (Chloride) 100 mls @ 100 mls/hr IVPB Q12H [facility]; Protocol Last Admin: 09/21/18 05:33 Dose: 100 mls/hr Losartan Potassium (Cozaar) 25 mg PO DAILY [facility] Last Admin: 09/21/18 09:36 Dose: 25 mg Magnesium Oxide (Mag-Ox) 400 mg PO BID [facility] Last Admin: 09/21/18 09:35 Dose: 400 mg Metoprolol Tartrate (Lopressor) 50 mg PO BID [facility] Last Admin: 09/21/18 10:39 Dose: Not Given Nystatin (Nystop Topical Powder) 0 gm TOP TID [facility] Last Admin: 09/21/18 13:21 Dose: 1 applic Ondansetron HCl (Zofran Inj) 4 mg IVP Q6H PRN PRN Reason: nausea Last Admin: 09/13/18 17:00 Dose: 4 mg Pantoprazole Sodium (Protonix Ec Tab) 40 mg PO DAILY [facility] Last Admin: 09/21/18 09:35 Dose: 40 mg Potassium Chloride (Potassium Chloride Oral Soln) 20 meq PO BID [facility] Last Admin: 09/21/18 09:36 Dose: 20 meq Tramadol HCl (Ultram) 25 mg PO TID PRN PRN Reason: Pain, severe (8-10) Last Admin: 09/16/18 10:27 Dose: 25 mg Vitamin B Complex/Vit C/Folic Acid (Nephro-Fortino) 1 tab PO 0800 [facility] Last Admin: 09/21/18 09:37 Dose: 1 tab - Labs Labs: 09/17/18 07:33 09/17/18 07:33 PT 25.5 SECONDS (9.7-12.2) H 08/31/18 20:08 INR 2.3 08/31/18 20:08 APTT 34 SECONDS (21-34) 08/31/18 12:32 - Constitutional Appears: Well - Head Exam Head Exam: ATRAUMATIC, NORMAL INSPECTION, NORMOCEPHALIC - Eye Exam Eye Exam: EOMI, Normal appearance, PERRL Pupil Exam: NORMAL ACCOMODATION, PERRL - ENT Exam ENT Exam: Mucous Membranes Moist, Normal Exam - Neck Exam Neck Exam: Full ROM, Normal Inspection. absent: Lymphadenopathy - Respiratory Exam Respiratory Exam: Decreased Breath Sounds - Cardiovascular Exam Cardiovascular Exam: REGULAR RHYTHM, +S1, +S2 - GI/Abdominal Exam GI & Abdominal Exam: Soft, Diminished Bowel Sounds - Rectal Exam Rectal Exam: Deferred
[2018-09-22] MEDS: Meropenem 500 MG in Sodium Chloride 0.9% 100 ML IVPB SCH ×2 (04:17→17:42)
[2018-09-22] MEDS: Calcium-Vit D 500 mg-200 Units Tab UD PO SCH ×2 (09:04→17:43)
[2018-09-22] MEDS: Magnesium Oxide 400 mg Tab UD PO SCH ×2 (09:04→17:43)
[2018-09-22] MEDS: Pantoprazole 40 mg EC Tab PO SCH (09:04)
[2018-09-22] MEDS: Potassium Chloride 20 mEq/15 ml LIQ UD PO SCH ×2 (09:05→17:43)
[2018-09-22] MEDS: Enoxaparin 40 mg Syringe SC SCH (09:05)
[2018-09-22] MEDS: Multivitamin Vitamin B Complex (Nephro-Vite) Tab PO SCH (09:05)
[2018-09-22] MEDS: Nystatin 100,000 Units/gm Topical Pow(15 gm) TOP SCH ×3 (09:06→17:44)
--- NOTE | 2018-09-22 13:30 | CP.PCM.PN ---
Subjective - Date & Time of Evaluation Date of Evaluation: 09/22/18 Time of Evaluation: 13:30 - Subjective Subjective: Nephrology Consultation Note Assessment: stable Acute Kidney Injury (N17.9) likely due to ATN and pre-renal state: recent work up for GN neg; resolved HAGMA with ketonemia likely due to ROBIN and ketoacidosis hypovolemic hyponatremia, Hypokalemia, hypocalcemia and hypomagnesemia likely due to GI (due to diarrhoea) and renal loss (was on lasix) with limited oral intake severe hypoalbuminemia with malnutration with anasarca Hypertensive Chronic Kidney Disease (I12.9) Chronic Kidney Disease (N18.9) Stage 3 with 55 mg albuminuria Anemia acute on chronic severe Mitral regurg with infective endocarditis, depression/Anxiety shingles rash Plan check labs in AM Maintain hemodynamics stable. Avoid hypotension. Patient not on ACEI/ARB due to recent ROBIN, will add low dose losartan. lopressor increased to 50 bid Monitor Input/Output, daily weights and renal function with basic metabolic panel started Fe, MVI, and weekly Vit D, OScal D continue with lasix 40 mg oral daily with K and Mag supplements PRBC as needed. had transfusion 09/02/18. supplement lytes as needed on valtrex and meds to control neuropathic pain Dose meds/antibiotics for improved GFR. Glycemic control Further work up for as per primary team pt stable from renal perspective Thanks for allowing me to participate in care of your patient. Will follow patient with you. Please call if any Qs. had d/w team Dr Heriberto Hernandez Office: [phone] reason for consult; ROBIN and electrolytes abnormalities HPI: pt is a 62 F with hx of HTN, depression who was recently admitted to hospit al with ROBIN required few session of HD then improved with cr 1.2, also with infective endocarditis with severe MR but pt refused surgery and decided only for IV antibiotics treatments came as was feeling weak, found to have severe electrolytes depletion and renal consult for ROBIN. pt feels nervous. reports decreased oral intake and c.o loose stool besides that not providing much hx nor recent Iv contrast. noted low BP ROS: denies SOB, chest pain. feels better no diarrhoea Physical Examination: General Appearance: comfortable, in no acute respiratory distress, better appearing but debilitated Vitals reviewed and noted as below Head; Atraumatic, normocephalic ENT: WNL EYES: Pupils are equal, round and reactive to light accommodation. Eye muscles and extraocular movement intact. Sclera is anicteric. Neck; supple no lymphadenopathy, no thyromegaly or bruit Lungs: Normal respiratory rate/effort. Breath sounds b/l decreased at bases Heart: Increased rate. s1s2 normal. No rub or gallop. SM + at apex/LSB Extremities: 1-2+ edema. No varicose veins Neurological: Patient is alert awake oriented follow commands Skin: Warm and dry. Normal turgor. Palpitation: Normal elasticity for age. shingles rash RUQ dermatome Abdomen: Abdomen is soft. Bowel sounds +. There is no abdominal tenderness, no guarding/rigidity no organomegaly Psych: lack insight. anxious MSK: no joint tenderness or swelling. Digits and nails normal, no deformity : kidney or bladder not palpable Labs/imaging reviewed. Past medical history, past surgical history, family history, social history, allergy reviewed and noted as below Family hx: no hx of CKD. Rest non-contributory work up: Hep B/C/HIV neg renal imaging: unremarkable A1c 5.5% UA no protein 1+ blood LINDSEY/ANCA neg, K/L ratio WNLTSAT 9% ferritin 221 Vit D <12.8 PTH 268 FENa 0.3% TTKG 15 Objective - Vital Signs/Intake and Output Vital Signs (last 24 hours): Temp Pulse Resp BP Pulse Ox 98 F 104 H 20 146/88 100 09/22/18 08:36 09/22/18 08:36 09/22/18 08:36 09/22/18 09:05 09/22/18 08:36 - Medications Medications: Current Medications Acetaminophen (Tylenol 325mg Tab) 650 mg PO Q6 PRN PRN Reason: pain Last Admin: 09/16/18 09:15 Dose: 650 mg Calcium/Vitamin D (Oyster Shell Calcium/Vitamin D 500 Mg-200 Iu) 1 tab PO BID [facility] Last Admin: 09/22/18 09:04 Dose: 1 tab Enoxaparin Sodium (Lovenox) 40 mg SC DAILY [facility] Last Admin: 09/22/18 09:05 Dose: 40 mg Ergocalciferol (Drisdol 50,000 Intl Units Cap) 1 cap PO Q7D [facility] Last Admin: 09/15/18 13:41 Dose: 1 cap Ferrous Gluconate (Fergon) 324 mg PO TID [facility] Last Admin: 09/22/18 09:04 Dose: 324 mg Furosemide (Lasix) 40 mg PO DAILY [facility] Last Admin: 09/22/18 09:05 Dose: 40 mg Gabapentin (Neurontin) 100 mg PO TID [facility] Last Admin: 09/22/18 09:04 Dose: 100 mg Meropenem 500 mg/ Sodium (Chloride) 100 mls @ 100 mls/hr IVPB Q12H [facility]; Protocol Last Admin: 09/22/18 04:17 Dose: 100 mls/hr Losartan Potassium (Cozaar) 25 mg PO DAILY [facility] Last Admin: 09/22/18 09:04 Dose: 25 mg Magnesium Oxide (Mag-Ox) 400 mg PO BID [facility] Last Admin: 09/22/18 09:04 Dose: 400 mg Metoprolol Tartrate (Lopressor) 50 mg PO BID [facility] Last Admin: 09/22/18 09:04 Dose: 50 mg Nystatin (Nystop Topical Powder) 0 gm TOP TID [facility] Last Admin: 09/22/18 09:06 Dose: 1 applic Ondansetron HCl (Zofran Inj) 4 mg IVP Q6H PRN PRN Reason: nausea Last Admin: 09/13/18 17:00 Dose: 4 mg Pantoprazole Sodium (Protonix Ec Tab) 40 mg PO DAILY [facility] Last Admin: 09/22/18 09:04 Dose: 40 mg Potassium Chloride (Potassium Chloride Oral Soln) 20 meq PO BID [facility] Last Admin: 09/22/18 09:05 Dose: Not Given Tramadol HCl (Ultram) 25 mg PO TID PRN PRN Reason: Pain, severe (8-10) Last Admin: 09/16/18 10:27 Dose: 25 mg Vitamin B Complex/Vit C/Folic Acid (Nephro-Fortino) 1 tab PO 0800 [facility] Last Admin: 09/22/18 09:05 Dose: 1 tab - Labs Labs: 09/17/18 07:33 09/17/18 07:33 PT 25.5 SECONDS (9.7-12.2) H 08/31/18 20:08 INR 2.3 08/31/18 20:08 APTT 34 SECONDS (21-34) 08/31/18 12:32
[2018-09-22] MEDS: Ergocalciferol 50,000 Intl Units Cap PO SCH (13:38)
[2018-09-22] MEDS: Tramadol 25 mg PO PRN (14:53)
--- NOTE | 2018-09-22 21:22 | CP.PCM.PN ---
Subjective - Date & Time of Evaluation Date of Evaluation: 09/22/18 Time of Evaluation: 18:00 - Subjective Subjective: No complaints. Objective - Vital Signs/Intake and Output Vital Signs (last 24 hours): Temp Pulse Resp BP Pulse Ox 97.5 F L 106 H 20 145/89 95 09/22/18 15:00 09/22/18 15:00 09/22/18 15:00 09/22/18 15:00 09/22/18 15:00 - Medications Medications: Current Medications Acetaminophen (Tylenol 325mg Tab) 650 mg PO Q6 PRN PRN Reason: pain Last Admin: 09/16/18 09:15 Dose: 650 mg Calcium/Vitamin D (Oyster Shell Calcium/Vitamin D 500 Mg-200 Iu) 1 tab PO BID [facility] Last Admin: 09/22/18 17:43 Dose: 1 tab Enoxaparin Sodium (Lovenox) 40 mg SC DAILY [facility] Last Admin: 09/22/18 09:05 Dose: 40 mg Ergocalciferol (Drisdol 50,000 Intl Units Cap) 1 cap PO Q7D [facility] Last Admin: 09/22/18 13:38 Dose: 1 cap Ferrous Gluconate (Fergon) 324 mg PO TID [facility] Last Admin: 09/22/18 17:43 Dose: 324 mg Furosemide (Lasix) 40 mg PO DAILY [facility] Last Admin: 09/22/18 09:05 Dose: 40 mg Gabapentin (Neurontin) 100 mg PO TID [facility] Last Admin: 09/22/18 17:43 Dose: 100 mg Meropenem 500 mg/ Sodium (Chloride) 100 mls @ 100 mls/hr IVPB Q12H [facility]; Protocol Last Admin: 09/22/18 17:42 Dose: 100 mls/hr Losartan Potassium (Cozaar) 25 mg PO DAILY [facility] Last Admin: 09/22/18 09:04 Dose: 25 mg Magnesium Oxide (Mag-Ox) 400 mg PO BID [facility] Last Admin: 09/22/18 17:43 Dose: 400 mg Metoprolol Tartrate (Lopressor) 50 mg PO BID [facility] Last Admin: 09/22/18 17:44 Dose: 50 mg Nystatin (Nystop Topical Powder) 0 gm TOP TID [facility] Last Admin: 09/22/18 17:44 Dose: 1 applic Ondansetron HCl (Zofran Inj) 4 mg IVP Q6H PRN PRN Reason: nausea Last Admin: 09/13/18 17:00 Dose: 4 mg Pantoprazole Sodium (Protonix Ec Tab) 40 mg PO DAILY [facility] Last Admin: 09/22/18 09:04 Dose: 40 mg Potassium Chloride (Potassium Chloride Oral Soln) 20 meq PO BID [facility] Last Admin: 09/22/18 17:43 Dose: 20 meq Tramadol HCl (Ultram) 25 mg PO TID PRN PRN Reason: Pain, severe (8-10) Last Admin: 09/22/18 14:53 Dose: 25 mg Vitamin B Complex/Vit C/Folic Acid (Nephro-Fortino) 1 tab PO 0800 [facility] Last Admin: 09/22/18 09:05 Dose: 1 tab - Labs Labs: 09/17/18 07:33 09/17/18 07:33 PT 25.5 SECONDS (9.7-12.2) H 08/31/18 20:08 INR 2.3 08/31/18 20:08 APTT 34 SECONDS (21-34) 08/31/18 12:32 - Head Exam Head Exam: ATRAUMATIC - Eye Exam Eye Exam: Normal appearance - ENT Exam ENT Exam: Mucous Membranes Dry - Respiratory Exam Respiratory Exam: NORMAL BREATHING PATTERN - Cardiovascular Exam Cardiovascular Exam: +S1, +S2 - GI/Abdominal Exam GI & Abdominal Exam: Normal Bowel Sounds Assessment and Plan (1) Anemia Assessment & Plan: prior work up consistent with anemia of chronic disease transfusion support PRN no iron, b12, folate deficiency Status: Acute
--- NOTE | 2018-09-22 21:22 | CP.PCM.PN ---
Subjective - Date & Time of Evaluation Date of Evaluation: 09/21/18 Time of Evaluation: 15:00 - Subjective Subjective: No complaints. Objective - Vital Signs/Intake and Output Vital Signs (last 24 hours): Temp Pulse Resp BP Pulse Ox 97.5 F L 106 H 20 145/89 95 09/22/18 15:00 09/22/18 15:00 09/22/18 15:00 09/22/18 15:00 09/22/18 15:00 - Medications Medications: Current Medications Acetaminophen (Tylenol 325mg Tab) 650 mg PO Q6 PRN PRN Reason: pain Last Admin: 09/16/18 09:15 Dose: 650 mg Calcium/Vitamin D (Oyster Shell Calcium/Vitamin D 500 Mg-200 Iu) 1 tab PO BID [facility] Last Admin: 09/22/18 17:43 Dose: 1 tab Enoxaparin Sodium (Lovenox) 40 mg SC DAILY [facility] Last Admin: 09/22/18 09:05 Dose: 40 mg Ergocalciferol (Drisdol 50,000 Intl Units Cap) 1 cap PO Q7D [facility] Last Admin: 09/22/18 13:38 Dose: 1 cap Ferrous Gluconate (Fergon) 324 mg PO TID [facility] Last Admin: 09/22/18 17:43 Dose: 324 mg Furosemide (Lasix) 40 mg PO DAILY [facility] Last Admin: 09/22/18 09:05 Dose: 40 mg Gabapentin (Neurontin) 100 mg PO TID [facility] Last Admin: 09/22/18 17:43 Dose: 100 mg Meropenem 500 mg/ Sodium (Chloride) 100 mls @ 100 mls/hr IVPB Q12H [facility]; Protocol Last Admin: 09/22/18 17:42 Dose: 100 mls/hr Losartan Potassium (Cozaar) 25 mg PO DAILY [facility] Last Admin: 09/22/18 09:04 Dose: 25 mg Magnesium Oxide (Mag-Ox) 400 mg PO BID [facility] Last Admin: 09/22/18 17:43 Dose: 400 mg Metoprolol Tartrate (Lopressor) 50 mg PO BID [facility] Last Admin: 09/22/18 17:44 Dose: 50 mg Nystatin (Nystop Topical Powder) 0 gm TOP TID [facility] Last Admin: 09/22/18 17:44 Dose: 1 applic Ondansetron HCl (Zofran Inj) 4 mg IVP Q6H PRN PRN Reason: nausea Last Admin: 09/13/18 17:00 Dose: 4 mg Pantoprazole Sodium (Protonix Ec Tab) 40 mg PO DAILY [facility] Last Admin: 09/22/18 09:04 Dose: 40 mg Potassium Chloride (Potassium Chloride Oral Soln) 20 meq PO BID [facility] Last Admin: 09/22/18 17:43 Dose: 20 meq Tramadol HCl (Ultram) 25 mg PO TID PRN PRN Reason: Pain, severe (8-10) Last Admin: 09/22/18 14:53 Dose: 25 mg Vitamin B Complex/Vit C/Folic Acid (Nephro-Fortino) 1 tab PO 0800 [facility] Last Admin: 09/22/18 09:05 Dose: 1 tab - Labs Labs: 09/17/18 07:33 09/17/18 07:33 PT 25.5 SECONDS (9.7-12.2) H 08/31/18 20:08 INR 2.3 08/31/18 20:08 APTT 34 SECONDS (21-34) 08/31/18 12:32 - Head Exam Head Exam: ATRAUMATIC - Eye Exam Eye Exam: Normal appearance - ENT Exam ENT Exam: Mucous Membranes Dry - Respiratory Exam Respiratory Exam: NORMAL BREATHING PATTERN - Cardiovascular Exam Cardiovascular Exam: +S1, +S2 - GI/Abdominal Exam GI & Abdominal Exam: Normal Bowel Sounds Assessment and Plan (1) Anemia Assessment & Plan: prior work up consistent with anemia of chronic disease transfusion support PRN no iron, b12, folate deficiency Status: Acute
--- NOTE | 2018-09-22 21:37 | CP.PCM.PN ---
Subjective - Date & Time of Evaluation Date of Evaluation: 09/22/18 Time of Evaluation: 07:20 - Subjective Subjective: clinically same Objective - Vital Signs/Intake and Output Vital Signs (last 24 hours): Temp Pulse Resp BP Pulse Ox 97.5 F L 106 H 20 145/89 95 09/22/18 15:00 09/22/18 15:00 09/22/18 15:00 09/22/18 15:00 09/22/18 15:00 - Medications Medications: Current Medications Acetaminophen (Tylenol 325mg Tab) 650 mg PO Q6 PRN PRN Reason: pain Last Admin: 09/16/18 09:15 Dose: 650 mg Calcium/Vitamin D (Oyster Shell Calcium/Vitamin D 500 Mg-200 Iu) 1 tab PO BID [facility] Last Admin: 09/22/18 17:43 Dose: 1 tab Enoxaparin Sodium (Lovenox) 40 mg SC DAILY [facility] Last Admin: 09/22/18 09:05 Dose: 40 mg Ergocalciferol (Drisdol 50,000 Intl Units Cap) 1 cap PO Q7D [facility] Last Admin: 09/22/18 13:38 Dose: 1 cap Ferrous Gluconate (Fergon) 324 mg PO TID [facility] Last Admin: 09/22/18 17:43 Dose: 324 mg Furosemide (Lasix) 40 mg PO DAILY [facility] Last Admin: 09/22/18 09:05 Dose: 40 mg Gabapentin (Neurontin) 100 mg PO TID [facility] Last Admin: 09/22/18 17:43 Dose: 100 mg Meropenem 500 mg/ Sodium (Chloride) 100 mls @ 100 mls/hr IVPB Q12H [facility]; Protocol Last Admin: 09/22/18 17:42 Dose: 100 mls/hr Losartan Potassium (Cozaar) 25 mg PO DAILY [facility] Last Admin: 09/22/18 09:04 Dose: 25 mg Magnesium Oxide (Mag-Ox) 400 mg PO BID [facility] Last Admin: 09/22/18 17:43 Dose: 400 mg Metoprolol Tartrate (Lopressor) 50 mg PO BID [facility] Last Admin: 09/22/18 17:44 Dose: 50 mg Nystatin (Nystop Topical Powder) 0 gm TOP TID [facility] Last Admin: 09/22/18 17:44 Dose: 1 applic Ondansetron HCl (Zofran Inj) 4 mg IVP Q6H PRN PRN Reason: nausea Last Admin: 09/13/18 17:00 Dose: 4 mg Pantoprazole Sodium (Protonix Ec Tab) 40 mg PO DAILY [facility] Last Admin: 09/22/18 09:04 Dose: 40 mg Potassium Chloride (Potassium Chloride Oral Soln) 20 meq PO BID [facility] Last Admin: 09/22/18 17:43 Dose: 20 meq Tramadol HCl (Ultram) 25 mg PO TID PRN PRN Reason: Pain, severe (8-10) Last Admin: 09/22/18 14:53 Dose: 25 mg Vitamin B Complex/Vit C/Folic Acid (Nephro-Fortino) 1 tab PO 0800 [facility] Last Admin: 09/22/18 09:05 Dose: 1 tab - Labs Labs: 09/17/18 07:33 09/17/18 07:33 PT 25.5 SECONDS (9.7-12.2) H 08/31/18 20:08 INR 2.3 08/31/18 20:08 APTT 34 SECONDS (21-34) 08/31/18 12:32 - Constitutional Appears: Well - Head Exam Head Exam: ATRAUMATIC, NORMAL INSPECTION, NORMOCEPHALIC - Eye Exam Eye Exam: EOMI, Normal appearance, PERRL Pupil Exam: NORMAL ACCOMODATION, PERRL - ENT Exam ENT Exam: Mucous Membranes Moist, Normal Exam - Neck Exam Neck Exam: Full ROM, Normal Inspection. absent: Lymphadenopathy - Respiratory Exam Respiratory Exam: Decreased Breath Sounds - Cardiovascular Exam Cardiovascular Exam: REGULAR RHYTHM, +S1, +S2 - GI/Abdominal Exam GI & Abdominal Exam: Soft, Diminished Bowel Sounds - Rectal Exam Rectal Exam: Deferred Assessment and Plan - Assessment and Plan (Free Text) Plan: Spoke to the son at length explained about history of endocarditis Possible discharge Medical for another 2 weeks Discussed with ID Continue pain medicines PT OT Patient patient has element of dementia as while talking to the patient patient misses the main track and side start stopping the Ciprodex Status post renal As seen by multiple consultations As ordered
[2018-09-23] MEDS: Meropenem 500 MG in Sodium Chloride 0.9% 100 ML IVPB SCH ×2 (05:42→17:57)
[2018-09-23 06:38] LABS: BASO # 0.1 K/uL (0.0-0.2); BASO % 1.2 % (0.0-2.0); EOS # 0.3 K/uL (0.0-0.7); EOS % 4.9 % (0.0-4.0); HEMOGLOBIN 8.6 g/dL (11.0-16.0); LYMPH # 3.6 K/uL (1.0-4.3); LYMPH % 55.5 % (20.0-40.0); MEAN CORPUSCULAR HGB CONC 32.3 g/dL (33.0-37.0); MEAN PLATELET VOLUME 8.6 fL (7.2-11.7); MONO # 0.3 K/uL (0.0-0.8); MONO % 4.7 % (0.0-10.0); NEUT # 2.2 K/uL (1.8-7.0); NEUT % 33.7 % (50.0-75.0); NRBC % 0.1 % (0.0-2.0); RBC 2.69 Mil/uL (3.80-5.20); RED CELL DISTRIBUTION WIDTH 19.4 % (11.5-14.5); WHITE BLOOD COUNT 6.5 K/uL (4.8-10.8)
[2018-09-23 07:48] LABS: BLOOD UREA NITROGEN 20 mg/dL (7-17); CALCIUM 7.6 mg/dl (8.6-10.4); GFR NON-AFRICAN AMERICAN > 60
[2018-09-23] MEDS: Calcium-Vit D 500 mg-200 Units Tab UD PO SCH ×2 (10:53→17:58)
[2018-09-23] MEDS: Magnesium Oxide 400 mg Tab UD PO SCH ×2 (10:53→17:58)
[2018-09-23] MEDS: Multivitamin Vitamin B Complex (Nephro-Vite) Tab PO SCH (10:54)
[2018-09-23] MEDS: Nystatin 100,000 Units/gm Topical Pow(15 gm) TOP SCH ×3 (11:32→18:00)
[2018-09-23] MEDS: Pantoprazole 40 mg EC Tab PO SCH (11:33)
--- NOTE | 2018-09-23 11:34 | CP.PCM.PN ---
Subjective - Date & Time of Evaluation Date of Evaluation: 09/23/18 Time of Evaluation: 11:33 - Subjective Subjective: Nephrology Consultation Note Assessment: stable Acute Kidney Injury (N17.9) likely due to ATN and pre-renal state: recent work up for GN neg; resolved HAGMA with ketonemia likely due to ROBIN and ketoacidosis hypovolemic hyponatremia, Hypokalemia, hypocalcemia and hypomagnesemia likely due to GI (due to diarrhoea) and renal loss (was on lasix) with limited oral intake severe hypoalbuminemia with malnutration with anasarca Hypertensive Chronic Kidney Disease (I12.9) Chronic Kidney Disease (N18.9) Stage 3 with 55 mg albuminuria Anemia acute on chronic severe Mitral regurg with infective endocarditis, depression/Anxiety shingles rash Plan Maintain hemodynamics stable. Avoid hypotension. Patient not on ACEI/ARB due to recent ROBIN, will add low dose losartan. lopressor increased to 50 bid Monitor Input/Output, daily weights and renal function with basic metabolic panel started Fe, MVI, and weekly Vit D, OScal D continue with lasix 40 mg oral daily with lytes supplements PRBC as needed. had transfusion 09/02/18. supplement lytes as needed on valtrex and meds to control neuropathic pain Dose meds/antibiotics for improved GFR. Glycemic control Further work up for as per primary team pt stable from renal perspective Thanks for allowing me to participate in care of your patient. Will follow patient with you. Please call if any Qs. had d/w team Dr Heriberto Hernandez Office: [phone] reason for consult; ROBIN and electrolytes abnormalities HPI: pt is a 62 F with hx of HTN, depression who was recently admitted to hospital with ROBIN required few session of HD then improved with cr 1.2, also with infective endocarditis with severe MR but pt refused surgery and decided only for IV antibiotics treatments came as was feeling weak, found to have severe electrolytes depletion and renal consult for ROBIN. pt feels nervous. reports decreased oral intake and c.o loose stool besides that not providing much hx nor recent Iv contrast. noted low BP ROS: denies SOB, chest pain. feels better no diarrhoea Physical Examination: General Appearance: comfortable, in no acute respiratory distress, better ap pearing but debilitated Vitals reviewed and noted as below Head; Atraumatic, normocephalic ENT: WNL EYES: Pupils are equal, round and reactive to light accommodation. Eye muscles and extraocular movement intact. Sclera is anicteric. Neck; supple no lymphadenopathy, no thyromegaly or bruit Lungs: Normal respiratory rate/effort. Breath sounds b/l decreased at bases Heart: Increased rate. s1s2 normal. No rub or gallop. SM + at apex/LSB Extremities: 1-2+ edema. No varicose veins Neurological: Patient is alert awake oriented follow commands Skin: Warm and dry. Normal turgor. Palpitation: Normal elasticity for age. shingles rash RUQ dermatome Abdomen: Abdomen is soft. Bowel sounds +. There is no abdominal tenderness, no guarding/rigidity no organomegaly Psych: lack insight. anxious MSK: no joint tenderness or swelling. Digits and nails normal, no deformity : kidney or bladder not palpable Labs/imaging reviewed. Past medical history, past surgical history, family history, social history, allergy reviewed and noted as below Family hx: no hx of CKD. Rest non-contributory work up: Hep B/C/HIV neg renal imaging: unremarkable A1c 5.5% UA no protein 1+ blood LINDSEY/ANCA neg, K/L ratio WNLTSAT 9% ferritin 221 Vit D <12.8 PTH 268 FENa 0.3% TTKG 15 Objective - Vital Signs/Intake and Output Vital Signs (last 24 hours): Temp Pulse Resp BP Pulse Ox 97.9 F 108 H 20 154/79 H 100 09/23/18 08:00 09/23/18 08:00 09/23/18 08:00 09/23/18 10:53 09/23/18 08:00 - Medications Medications: Current Medications Acetaminophen (Tylenol 325mg Tab) 650 mg PO Q6 PRN PRN Reason: pain Last Admin: 09/16/18 09:15 Dose: 650 mg Calcium/Vitamin D (Oyster Shell Calcium/Vitamin D 500 Mg-200 Iu) 1 tab PO BID [facility] Last Admin: 09/23/18 10:53 Dose: 1 tab Ergocalciferol (Drisdol 50,000 Intl Units Cap) 1 cap PO Q7D [facility] Last Admin: 09/22/18 13:38 Dose: 1 cap Ferrous Gluconate (Fergon) 324 mg PO TID [facility] Last Admin: 09/23/18 10:54 Dose: 324 mg Furosemide (Lasix) 40 mg PO DAILY [facility] Last Admin: 09/23/18 10:53 Dose: 40 mg Gabapentin (Neurontin) 100 mg PO TID [facility] Last Admin: 09/23/18 10:53 Dose: 100 mg Meropenem 500 mg/ Sodium (Chloride) 100 mls @ 100 mls/hr IVPB Q12H [facility]; Protocol Last Admin: 09/23/18 05:42 Dose: 100 mls/hr Losartan Potassium (Cozaar) 25 mg PO DAILY [facility] Last Admin: 09/23/18 10:54 Dose: 25 mg Magnesium Oxide (Mag-Ox) 400 mg PO BID [facility] Last Admin: 09/23/18 10:53 Dose: 400 mg Metoprolol Tartrate (Lopressor) 50 mg PO BID [facility] Last Admin: 09/23/18 10:53 Dose: 50 mg Nystatin (Nystop Topical Powder) 0 gm TOP TID [facility] Last Admin: 09/23/18 11:32 Dose: 1 applic Ondansetron HCl (Zofran Inj) 4 mg IVP Q6H PRN PRN Reason: nausea Last Admin: 09/13/18 17:00 Dose: 4 mg Potassium Chloride (Potassium Chloride Oral Soln) 20 meq PO DAILY [facility] Tramadol HCl (Ultram) 25 mg PO TID PRN PRN Reason: Pain, severe (8-10) Last Admin: 09/22/18 14:53 Dose: 25 mg Vitamin B Complex/Vit C/Folic Acid (Nephro-Fortino) 1 tab PO 0800 [facility] Last Admin: 09/23/18 10:54 Dose: 1 tab - Labs Labs: 09/23/18 06:30 09/23/18 06:30 PT 25.5 SECONDS (9.7-12.2) H 08/31/18 20:08 INR 2.3 08/31/18 20:08 APTT 34 SECONDS (21-34) 08/31/18 12:32
[2018-09-23] MEDS: Enoxaparin 40 mg Syringe SC SCH (11:51)
--- NOTE | 2018-09-23 18:20 | CP.PCM.PN ---
Subjective - Date & Time of Evaluation Date of Evaluation: 09/23/18 Time of Evaluation: 08:00 - Subjective Subjective: IV rx renewed discussed with Dr Steven Marc Objective - Vital Signs/Intake and Output Vital Signs (last 24 hours): Temp Pulse Resp BP Pulse Ox 97.9 F 99 H 20 120/71 97 09/23/18 15:25 09/23/18 17:59 09/23/18 15:25 09/23/18 17:59 09/23/18 15:25 - Medications Medications: Current Medications Acetaminophen (Tylenol 325mg Tab) 650 mg PO Q6 PRN PRN Reason: pain Last Admin: 09/16/18 09:15 Dose: 650 mg Calcium/Vitamin D (Oyster Shell Calcium/Vitamin D 500 Mg-200 Iu) 1 tab PO BID [facility] Last Admin: 09/23/18 17:58 Dose: 1 tab Ergocalciferol (Drisdol 50,000 Intl Units Cap) 1 cap PO Q7D [facility] Last Admin: 09/22/18 13:38 Dose: 1 cap Ferrous Gluconate (Fergon) 324 mg PO TID [facility] Last Admin: 09/23/18 17:58 Dose: 324 mg Furosemide (Lasix) 40 mg PO DAILY [facility] Last Admin: 09/23/18 10:53 Dose: 40 mg Gabapentin (Neurontin) 100 mg PO TID [facility] Last Admin: 09/23/18 17:58 Dose: 100 mg Meropenem 500 mg/ Sodium (Chloride) 100 mls @ 100 mls/hr IVPB Q12H [facility]; Protocol Last Admin: 09/23/18 17:57 Dose: 100 mls/hr Losartan Potassium (Cozaar) 25 mg PO DAILY [facility] Last Admin: 09/23/18 10:54 Dose: 25 mg Magnesium Oxide (Mag-Ox) 400 mg PO BID [facility] Last Admin: 09/23/18 17:58 Dose: 400 mg Metoprolol Tartrate (Lopressor) 50 mg PO BID [facility] Last Admin: 09/23/18 17:58 Dose: 50 mg Ondansetron HCl (Zofran Inj) 4 mg IVP Q6H PRN PRN Reason: nausea Last Admin: 09/13/18 17:00 Dose: 4 mg Potassium Chloride (Potassium Chloride Oral Soln) 20 meq PO DAILY [facility] Tramadol HCl (Ultram) 25 mg PO TID PRN PRN Reason: Pain, severe (8-10) Last Admin: 09/22/18 14:53 Dose: 25 mg Vitamin B Complex/Vit C/Folic Acid (Nephro-Fortino) 1 tab PO 0800 [facility] Last Admin: 09/23/18 10:54 Dose: 1 tab - Labs Labs: 09/23/18 06:30 09/23/18 06:30 PT 25.5 SECONDS (9.7-12.2) H 08/31/18 20:08 INR 2.3 08/31/18 20:08 APTT 34 SECONDS (21-34) 08/31/18 12:32 Assessment and Plan (1) Leukocytosis Status: Acute (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
--- NOTE | 2018-09-23 20:13 | CP.PCM.PN ---
Subjective - Date & Time of Evaluation Date of Evaluation: 09/23/18 Time of Evaluation: 07:45 - Subjective Subjective: clinically same Objective - Vital Signs/Intake and Output Vital Signs (last 24 hours): Temp Pulse Resp BP Pulse Ox 97.9 F 99 H 20 120/71 97 09/23/18 15:25 09/23/18 17:59 09/23/18 15:25 09/23/18 17:59 09/23/18 15:25 - Medications Medications: Current Medications Acetaminophen (Tylenol 325mg Tab) 650 mg PO Q6 PRN PRN Reason: pain Last Admin: 09/16/18 09:15 Dose: 650 mg Calcium/Vitamin D (Oyster Shell Calcium/Vitamin D 500 Mg-200 Iu) 1 tab PO BID [facility] Last Admin: 09/23/18 17:58 Dose: 1 tab Ergocalciferol (Drisdol 50,000 Intl Units Cap) 1 cap PO Q7D [facility] Last Admin: 09/22/18 13:38 Dose: 1 cap Ferrous Gluconate (Fergon) 324 mg PO TID [facility] Last Admin: 09/23/18 17:58 Dose: 324 mg Furosemide (Lasix) 40 mg PO DAILY [facility] Last Admin: 09/23/18 10:53 Dose: 40 mg Gabapentin (Neurontin) 100 mg PO TID [facility] Last Admin: 09/23/18 17:58 Dose: 100 mg Meropenem 500 mg/ Sodium (Chloride) 100 mls @ 100 mls/hr IVPB Q12H [facility]; Protocol Last Admin: 09/23/18 17:57 Dose: 100 mls/hr Losartan Potassium (Cozaar) 25 mg PO DAILY [facility] Last Admin: 09/23/18 10:54 Dose: 25 mg Magnesium Oxide (Mag-Ox) 400 mg PO BID [facility] Last Admin: 09/23/18 17:58 Dose: 400 mg Metoprolol Tartrate (Lopressor) 50 mg PO BID [facility] Last Admin: 09/23/18 17:58 Dose: 50 mg Ondansetron HCl (Zofran Inj) 4 mg IVP Q6H PRN PRN Reason: nausea Last Admin: 09/13/18 17:00 Dose: 4 mg Potassium Chloride (Potassium Chloride Oral Soln) 20 meq PO DAILY [facility] Tramadol HCl (Ultram) 25 mg PO TID PRN PRN Reason: Pain, severe (8-10) Last Admin: 09/22/18 14:53 Dose: 25 mg Vitamin B Complex/Vit C/Folic Acid (Nephro-Fortino) 1 tab PO 0800 [facility] Last Admin: 09/23/18 10:54 Dose: 1 tab - Labs Labs: 09/23/18 06:30 09/23/18 06:30 PT 25.5 SECONDS (9.7-12.2) H 08/31/18 20:08 INR 2.3 08/31/18 20:08 APTT 34 SECONDS (21-34) 08/31/18 12:32 - Constitutional Appears: Well - Head Exam Head Exam: ATRAUMATIC, NORMAL INSPECTION, NORMOCEPHALIC - Eye Exam Eye Exam: EOMI, Normal appearance, PERRL Pupil Exam: NORMAL ACCOMODATION, PERRL - ENT Exam ENT Exam: Mucous Membranes Moist, Normal Exam - Neck Exam Neck Exam: Full ROM, Normal Inspection. absent: Lymphadenopathy - Respiratory Exam Respiratory Exam: Decreased Breath Sounds - Cardiovascular Exam Cardiovascular Exam: REGULAR RHYTHM, +S1, +S2 - GI/Abdominal Exam GI & Abdominal Exam: Soft, Diminished Bowel Sounds - Rectal Exam Rectal Exam: Deferred
[2018-09-24] MEDS: Meropenem 500 MG in Sodium Chloride 0.9% 100 ML IVPB SCH ×2 (06:04→16:45)
[2018-09-24] MEDS ORDERED: Potassium Chloride 20 mEq/15 ml LIQ UD PO SCH (10:00)
[2018-09-24] MEDS: Multivitamin Vitamin B Complex (Nephro-Vite) Tab PO SCH (10:21)
[2018-09-24] MEDS: Calcium-Vit D 500 mg-200 Units Tab UD PO SCH ×2 (10:21→17:53)
[2018-09-24] MEDS: Magnesium Oxide 400 mg Tab UD PO SCH ×2 (10:21→17:53)
[2018-09-24 11:12] LABS: BASO # 0.1 K/uL (0.0-0.2); BASO % 0.7 % (0.0-2.0); EOS # 0.3 K/uL (0.0-0.7); EOS % 2.9 % (0.0-4.0); HEMOGLOBIN 8.6 g/dL (11.0-16.0); LYMPH # 4.1 K/uL (1.0-4.3); MEAN CORPUSCULAR HEMOGLOBIN 31.7 pg (27.0-31.0); MEAN CORPUSCULAR HGB CONC 32.3 g/dL (33.0-37.0); MEAN PLATELET VOLUME 8.9 fL (7.2-11.7); MONO # 0.4 K/uL (0.0-0.8); MONO % 4.2 % (0.0-10.0); NEUT % 45.2 % (50.0-75.0); RBC 2.7 Mil/uL (3.80-5.20); RED CELL DISTRIBUTION WIDTH 18.4 % (11.5-14.5); WHITE BLOOD COUNT 8.8 K/uL (4.8-10.8)
[2018-09-24 11:37] LABS: ALB/GLOB RATIO 0.7 (1.0-2.1); ALBUMIN 2.1 g/dL (3.5-5.0); ALT/SGPT 16 U/L (9-52); AST/SGOT 18 U/L (14-36); BLOOD UREA NITROGEN 17 mg/dL (7-17); CALCIUM 7.6 mg/dl (8.6-10.4); GFR NON-AFRICAN AMERICAN > 60
--- NOTE | 2018-09-24 15:46 | CP.PCM.PN ---
Subjective - Date & Time of Evaluation Date of Evaluation: 09/24/18 Time of Evaluation: 15:45 - Subjective Subjective: Nephrology Consultation Note Assessment: stable Acute Kidney Injury (N17.9) likely due to ATN and pre-renal state: recent work up for GN neg; resolved HAGMA with ketonemia likely due to ROBIN and ketoacidosis hypovolemic hyponatremia, Hypokalemia, hypocalcemia and hypomagnesemia likely due to GI (due to diarrhoea) and renal loss (was on lasix) with limited oral intake severe hypoalbuminemia with malnutration with anasarca Hypertensive Chronic Kidney Disease (I12.9) Chronic Kidney Disease (N18.9) Stage 3 with 55 mg albuminuria Anemia acute on chronic severe Mitral regurg with infective endocarditis, depression/Anxiety shingles rash Plan Maintain hemodynamics stable. Avoid hypotension. Patient not on ACEI/ARB due to recent ROBIN, will add low dose losartan. lopressor increased to 50 bid Monitor Input/Output, daily weights and renal function with basic metabolic panel started Fe, MVI, and weekly Vit D, OScal D continue with lasix 40 mg oral daily with lytes supplements PRBC as needed. had transfusion 09/02/18. supplement lytes as needed on valtrex and meds to control neuropathic pain Dose meds/antibiotics for improved GFR. Glycemic control Further work up for as per primary team pt stable from renal perspective Thanks for allowing me to participate in care of your patient. Will follow patient with you. Please call if any Qs. had d/w team Dr Heriberto Hernandez Office: [phone] reason for consult; ROBIN and electrolytes abnormalities HPI: pt is a 62 F with hx of HTN, depression who was recently admitted to hospital with ROBIN required few session of HD then improved with cr 1.2, also with infective endocarditis with severe MR but pt refused surgery and decided only for IV antibiotics treatments came as was feeling weak, found to have severe electrolytes depletion and renal consult for ROBIN. pt feels nervous. reports decreased oral intake and c.o loose stool besides that not providing much hx nor recent Iv contrast. noted low BP ROS: denies SOB, chest pain. feels better no diarrhoea Physical Examination: General Appearance: comfortable, in no acute respiratory distress, better ap pearing but debilitated Vitals reviewed and noted as below Head; Atraumatic, normocephalic ENT: WNL EYES: Pupils are equal, round and reactive to light accommodation. Eye muscles and extraocular movement intact. Sclera is anicteric. Neck; supple no lymphadenopathy, no thyromegaly or bruit Lungs: Normal respiratory rate/effort. Breath sounds b/l decreased at bases Heart: Increased rate. s1s2 normal. No rub or gallop. SM + at apex/LSB Extremities: 1+ edema. No varicose veins Neurological: Patient is alert awake oriented follow commands Skin: Warm and dry. Normal turgor. Palpitation: Normal elasticity for age. shingles rash RUQ dermatome Abdomen: Abdomen is soft. Bowel sounds +. There is no abdominal tenderness, no guarding/rigidity no organomegaly Psych: lack insight. anxious MSK: no joint tenderness or swelling. Digits and nails normal, no deformity : kidney or bladder not palpable Labs/imaging reviewed. Past medical history, past surgical history, family history, social history, allergy reviewed and noted as below Family hx: no hx of CKD. Rest non-contributory work up: Hep B/C/HIV neg renal imaging: unremarkable A1c 5.5% UA no protein 1+ blood LINDSEY/ANCA neg, K/L ratio WNLTSAT 9% ferritin 221 Vit D <12.8 PTH 268 FENa 0.3% TTKG 15 Objective - Vital Signs/Intake and Output Vital Signs (last 24 hours): Temp Pulse Resp BP Pulse Ox 98.1 F 99 H 20 138/80 95 09/24/18 07:40 09/24/18 07:40 09/24/18 07:40 09/24/18 10:21 09/24/18 07:40 Intake and Output: 09/24/18 09/24/18 06:59 18:59 Intake Total 600 700 Output Total 600 Balance 0 700 - Medications Medications: Current Medications Acetaminophen (Tylenol 325mg Tab) 650 mg PO Q6 PRN PRN Reason: pain Last Admin: 09/16/18 09:15 Dose: 650 mg Calcium/Vitamin D (Oyster Shell Calcium/Vitamin D 500 Mg-200 Iu) 1 tab PO BID [facility] Last Admin: 09/24/18 10:21 Dose: 1 tab Ergocalciferol (Drisdol 50,000 Intl Units Cap) 1 cap PO Q7D [facility] Last Admin: 09/22/18 13:38 Dose: 1 cap Ferrous Gluconate (Fergon) 324 mg PO TID [facility] Last Admin: 09/24/18 13:05 Dose: 324 mg Furosemide (Lasix) 40 mg PO DAILY [facility] Last Admin: 09/24/18 10:21 Dose: 40 mg Gabapentin (Neurontin) 100 mg PO TID [facility] Last Admin: 09/24/18 13:05 Dose: 100 mg Meropenem 500 mg/ Sodium (Chloride) 100 mls @ 100 mls/hr IVPB Q12H [facility]; Protocol Last Admin: 09/24/18 06:04 Dose: 100 mls/hr Losartan Potassium (Cozaar) 25 mg PO DAILY [facility] Last Admin: 09/24/18 10:20 Dose: 25 mg Magnesium Oxide (Mag-Ox) 400 mg PO BID [facility] Last Admin: 09/24/18 10:21 Dose: 400 mg Metoprolol Tartrate (Lopressor) 50 mg PO BID [facility] Last Admin: 09/24/18 10:21 Dose: 50 mg Ondansetron HCl (Zofran Inj) 4 mg IVP Q6H PRN PRN Reason: nausea Last Admin: 09/13/18 17:00 Dose: 4 mg Tramadol HCl (Ultram) 25 mg PO TID PRN PRN Reason: Pain, severe (8-10) Last Admin: 09/22/18 14:53 Dose: 25 mg Vitamin B Complex/Vit C/Folic Acid (Nephro-Fortino) 1 tab PO 0800 [facility] Last Admin: 09/24/18 10:21 Dose: 1 tab - Labs Labs: 09/24/18 11:01 09/24/18 11:01 PT 25.5 SECONDS (9.7-12.2) H 08/31/18 20:08 INR 2.3 08/31/18 20:08 APTT 34 SECONDS (21-34) 08/31/18 12:32
--- NOTE | 2018-09-24 20:06 | CP.PCM.PN ---
Subjective - Date & Time of Evaluation Date of Evaluation: 09/24/18 Time of Evaluation: 07:45 - Subjective Subjective: clinically same Objective - Vital Signs/Intake and Output Vital Signs (last 24 hours): Temp Pulse Resp BP Pulse Ox 98.6 F 93 H 20 123/72 96 09/24/18 15:10 09/24/18 17:54 09/24/18 15:10 09/24/18 17:54 09/24/18 15:10 Intake and Output: 09/24/18 09/25/18 18:59 06:59 Intake Total 950 Output Total 1 Balance 949 - Medications Medications: Current Medications Acetaminophen (Tylenol 325mg Tab) 650 mg PO Q6 PRN PRN Reason: pain Last Admin: 09/16/18 09:15 Dose: 650 mg Calcium/Vitamin D (Oyster Shell Calcium/Vitamin D 500 Mg-200 Iu) 1 tab PO BID [facility] Last Admin: 09/24/18 17:53 Dose: 1 tab Ergocalciferol (Drisdol 50,000 Intl Units Cap) 1 cap PO Q7D [facility] Last Admin: 09/22/18 13:38 Dose: 1 cap Ferrous Gluconate (Fergon) 324 mg PO TID [facility] Last Admin: 09/24/18 17:53 Dose: 324 mg Furosemide (Lasix) 40 mg PO DAILY [facility] Last Admin: 09/24/18 10:21 Dose: 40 mg Gabapentin (Neurontin) 100 mg PO TID [facility] Last Admin: 09/24/18 17:53 Dose: 100 mg Meropenem 500 mg/ Sodium (Chloride) 100 mls @ 100 mls/hr IVPB Q12H [facility]; Protocol Last Admin: 09/24/18 16:45 Dose: 100 mls/hr Losartan Potassium (Cozaar) 25 mg PO DAILY [facility] Last Admin: 09/24/18 10:20 Dose: 25 mg Magnesium Oxide (Mag-Ox) 400 mg PO BID [facility] Last Admin: 09/24/18 17:53 Dose: 400 mg Metoprolol Tartrate (Lopressor) 50 mg PO BID [facility] Last Admin: 09/24/18 17:53 Dose: 50 mg Ondansetron HCl (Zofran Inj) 4 mg IVP Q6H PRN PRN Reason: nausea Last Admin: 09/13/18 17:00 Dose: 4 mg Tramadol HCl (Ultram) 25 mg PO TID PRN PRN Reason: Pain, severe (8-10) Last Admin: 09/22/18 14:53 Dose: 25 mg Vitamin B Complex/Vit C/Folic Acid (Nephro-Fortino) 1 tab PO 0800 [facility] Last Admin: 09/24/18 10:21 Dose: 1 tab - Labs Labs: 09/24/18 11:01 09/24/18 11:01 PT 25.5 SECONDS (9.7-12.2) H 08/31/18 20:08 INR 2.3 08/31/18 20:08 APTT 34 SECONDS (21-34) 08/31/18 12:32 - Constitutional Appears: Well - Head Exam Head Exam: ATRAUMATIC, NORMAL INSPECTION, NORMOCEPHALIC - Eye Exam Eye Exam: EOMI, Normal appearance, PERRL Pupil Exam: NORMAL ACCOMODATION, PERRL - ENT Exam ENT Exam: Mucous Membranes Moist, Normal Exam - Neck Exam Neck Exam: Full ROM, Normal Inspection. absent: Lymphadenopathy - Respiratory Exam Respiratory Exam: Decreased Breath Sounds - Cardiovascular Exam Cardiovascular Exam: REGULAR RHYTHM, +S1, +S2 - GI/Abdominal Exam GI & Abdominal Exam: Soft, Diminished Bowel Sounds - Rectal Exam Rectal Exam: Deferred
--- NOTE | 2018-09-24 20:28 | CP.PCM.PN ---
Subjective - Date & Time of Evaluation Date of Evaluation: 09/23/18 Time of Evaluation: 12:00 - Subjective Subjective: Feeling better Objective - Vital Signs/Intake and Output Vital Signs (last 24 hours): Temp Pulse Resp BP Pulse Ox 98.6 F 93 H 20 123/72 96 09/24/18 15:10 09/24/18 17:54 09/24/18 15:10 09/24/18 17:54 09/24/18 15:10 Intake and Output: 09/24/18 09/25/18 18:59 06:59 Intake Total 950 Output Total 1 Balance 949 - Medications Medications: Current Medications Acetaminophen (Tylenol 325mg Tab) 650 mg PO Q6 PRN PRN Reason: pain Last Admin: 09/16/18 09:15 Dose: 650 mg Calcium/Vitamin D (Oyster Shell Calcium/Vitamin D 500 Mg-200 Iu) 1 tab PO BID [facility] Last Admin: 09/24/18 17:53 Dose: 1 tab Ergocalciferol (Drisdol 50,000 Intl Units Cap) 1 cap PO Q7D [facility] Last Admin: 09/22/18 13:38 Dose: 1 cap Ferrous Gluconate (Fergon) 324 mg PO TID [facility] Last Admin: 09/24/18 17:53 Dose: 324 mg Furosemide (Lasix) 40 mg PO DAILY [facility] Last Admin: 09/24/18 10:21 Dose: 40 mg Gabapentin (Neurontin) 100 mg PO TID [facility] Last Admin: 09/24/18 17:53 Dose: 100 mg Meropenem 500 mg/ Sodium (Chloride) 100 mls @ 100 mls/hr IVPB Q12H [facility]; Protocol Last Admin: 09/24/18 16:45 Dose: 100 mls/hr Losartan Potassium (Cozaar) 25 mg PO DAILY [facility] Last Admin: 09/24/18 10:20 Dose: 25 mg Magnesium Oxide (Mag-Ox) 400 mg PO BID [facility] Last Admin: 09/24/18 17:53 Dose: 400 mg Metoprolol Tartrate (Lopressor) 50 mg PO BID [facility] Last Admin: 09/24/18 17:53 Dose: 50 mg Ondansetron HCl (Zofran Inj) 4 mg IVP Q6H PRN PRN Reason: nausea Last Admin: 09/13/18 17:00 Dose: 4 mg Tramadol HCl (Ultram) 25 mg PO TID PRN PRN Reason: Pain, severe (8-10) Last Admin: 09/22/18 14:53 Dose: 25 mg Vitamin B Complex/Vit C/Folic Acid (Nephro-Fortino) 1 tab PO 0800 [facility] Last Admin: 09/24/18 10:21 Dose: 1 tab - Labs Labs: 09/24/18 11:01 09/24/18 11:01 PT 25.5 SECONDS (9.7-12.2) H 08/31/18 20:08 INR 2.3 08/31/18 20:08 APTT 34 SECONDS (21-34) 08/31/18 12:32 - Head Exam Head Exam: ATRAUMATIC - Eye Exam Eye Exam: Normal appearance - ENT Exam ENT Exam: Mucous Membranes Dry - Respiratory Exam Respiratory Exam: NORMAL BREATHING PATTERN - Cardiovascular Exam Cardiovascular Exam: +S1, +S2 - GI/Abdominal Exam GI & Abdominal Exam: Normal Bowel Sounds Assessment and Plan (1) Anemia Assessment & Plan: prior work up consistent with anemia of chronic disease transfusion support PRN no iron, b12, folate deficiency Status: Acute
--- NOTE | 2018-09-24 20:29 | CP.PCM.PN ---
Subjective - Date & Time of Evaluation Date of Evaluation: 09/24/18 Time of Evaluation: 19:00 - Subjective Subjective: Feeling better Objective - Vital Signs/Intake and Output Vital Signs (last 24 hours): Temp Pulse Resp BP Pulse Ox 98.6 F 93 H 20 123/72 96 09/24/18 15:10 09/24/18 17:54 09/24/18 15:10 09/24/18 17:54 09/24/18 15:10 Intake and Output: 09/24/18 09/25/18 18:59 06:59 Intake Total 950 Output Total 1 Balance 949 - Medications Medications: Current Medications Acetaminophen (Tylenol 325mg Tab) 650 mg PO Q6 PRN PRN Reason: pain Last Admin: 09/16/18 09:15 Dose: 650 mg Calcium/Vitamin D (Oyster Shell Calcium/Vitamin D 500 Mg-200 Iu) 1 tab PO BID [facility] Last Admin: 09/24/18 17:53 Dose: 1 tab Ergocalciferol (Drisdol 50,000 Intl Units Cap) 1 cap PO Q7D [facility] Last Admin: 09/22/18 13:38 Dose: 1 cap Ferrous Gluconate (Fergon) 324 mg PO TID [facility] Last Admin: 09/24/18 17:53 Dose: 324 mg Furosemide (Lasix) 40 mg PO DAILY [facility] Last Admin: 09/24/18 10:21 Dose: 40 mg Gabapentin (Neurontin) 100 mg PO TID [facility] Last Admin: 09/24/18 17:53 Dose: 100 mg Meropenem 500 mg/ Sodium (Chloride) 100 mls @ 100 mls/hr IVPB Q12H [facility]; Protocol Last Admin: 09/24/18 16:45 Dose: 100 mls/hr Losartan Potassium (Cozaar) 25 mg PO DAILY [facility] Last Admin: 09/24/18 10:20 Dose: 25 mg Magnesium Oxide (Mag-Ox) 400 mg PO BID [facility] Last Admin: 09/24/18 17:53 Dose: 400 mg Metoprolol Tartrate (Lopressor) 50 mg PO BID [facility] Last Admin: 09/24/18 17:53 Dose: 50 mg Ondansetron HCl (Zofran Inj) 4 mg IVP Q6H PRN PRN Reason: nausea Last Admin: 09/13/18 17:00 Dose: 4 mg Tramadol HCl (Ultram) 25 mg PO TID PRN PRN Reason: Pain, severe (8-10) Last Admin: 09/22/18 14:53 Dose: 25 mg Vitamin B Complex/Vit C/Folic Acid (Nephro-Fortino) 1 tab PO 0800 [facility] Last Admin: 09/24/18 10:21 Dose: 1 tab - Labs Labs: 09/24/18 11:01 09/24/18 11:01 PT 25.5 SECONDS (9.7-12.2) H 08/31/18 20:08 INR 2.3 08/31/18 20:08 APTT 34 SECONDS (21-34) 08/31/18 12:32 - Head Exam Head Exam: ATRAUMATIC - Eye Exam Eye Exam: Normal appearance - ENT Exam ENT Exam: Mucous Membranes Dry - Respiratory Exam Respiratory Exam: NORMAL BREATHING PATTERN - Cardiovascular Exam Cardiovascular Exam: +S1, +S2 - GI/Abdominal Exam GI & Abdominal Exam: Normal Bowel Sounds Assessment and Plan (1) Anemia Assessment & Plan: prior work up consistent with anemia of chronic disease transfusion support PRN no iron, b12, folate deficiency Status: Acute
[2018-09-25] MEDS: Meropenem 500 MG in Sodium Chloride 0.9% 100 ML IVPB SCH ×2 (04:24→16:49)
[2018-09-25] MEDS: Calcium-Vit D 500 mg-200 Units Tab UD PO SCH ×2 (09:20→17:29)
[2018-09-25] MEDS: Multivitamin Vitamin B Complex (Nephro-Vite) Tab PO SCH (09:20)
[2018-09-25] MEDS: Magnesium Oxide 400 mg Tab UD PO SCH ×2 (09:21→17:29)
--- NOTE | 2018-09-25 09:59 | CP.PCM.PN ---
Subjective - Date & Time of Evaluation Date of Evaluation: 09/25/18 Time of Evaluation: 09:59 - Subjective Subjective: Nephrology Consultation Note Assessment: stable Acute Kidney Injury (N17.9) likely due to ATN and pre-renal state: recent work up for GN neg; resolved HAGMA with ketonemia likely due to ROBIN and ketoacidosis hypovolemic hyponatremia, Hypokalemia, hypocalcemia and hypomagnesemia likely due to GI (due to diarrhoea) and renal loss (was on lasix) with limited oral intake severe hypoalbuminemia with malnutration with anasarca Hypertensive Chronic Kidney Disease (I12.9) Chronic Kidney Disease (N18.9) Stage 3 with 55 mg albuminuria Anemia acute on chronic severe Mitral regurg with infective endocarditis, depression/Anxiety shingles rash Plan Maintain hemodynamics stable. Avoid hypotension. Patient not on ACEI/ARB due to recent ROBIN, will add low dose losartan. lopressor increased to 50 bid Monitor Input/Output, daily weights and renal function with basic metabolic panel started Fe, MVI, and weekly Vit D, OScal D continue with lasix 40 mg oral daily with lytes supplements PRBC as needed. had transfusion 09/02/18. supplement lytes as needed Dose meds/antibiotics for improved GFR. Glycemic control Further work up for as per primary team pt stable from renal perspective Thanks for allowing me to participate in care of your patient. Will follow patient with you. Please call if any Qs. had d/w team Dr Heriberto Hernandez Office: [phone] reason for consult; ROBIN and electrolytes abnormalities HPI: pt is a 62 F with hx of HTN, depression who was recently admitted to hospital with ROBIN required few session of HD then improved with cr 1.2, also with infective endocarditis with severe MR but pt refused surgery and decided only for IV antibiotics treatments came as was feeling weak, found to have severe electrolytes depletion and renal consult for ROBIN. pt feels nervous. reports decreased oral intake and c.o loose stool besides that not providing much hx nor recent Iv contrast. noted low BP ROS: denies SOB, chest pain. feels better no diarrhoea Physical Examination: General Appearance: comfortable, in no acute respiratory distress, better appearing but debilitated Vitals reviewed and noted as below Head; Atraumatic, normocephalic ENT: WNL EYES: Pupils are equal, round and reactive to light accommodation. Eye muscles and extraocular movement intact. Sclera is anicteric. Neck; supple no lymphadenopathy, no thyromegaly or bruit Lungs: Normal respiratory rate/effort. Breath sounds b/l decreased at bases Heart: Increased rate. s1s2 normal. No rub or gallop. SM + at apex/LSB Extremities: 1+ edema. No varicose veins Neurological: Patient is alert awake oriented follow commands Skin: Warm and dry. Normal turgor. Palpitation: Normal elasticity for age. shingles rash RUQ dermatome Abdomen: Abdomen is soft. Bowel sounds +. There is no abdominal tenderness, no guarding/rigidity no organomegaly Psych: lack insight. anxious MSK: no joint tenderness or swelling. Digits and nails normal, no deformity : kidney or bladder not palpable Labs/imaging reviewed. Past medical history, past surgical history, family history, social history, allergy reviewed and noted as below Family hx: no hx of CKD. Rest non-contributory work up: Hep B/C/HIV neg renal imaging: unremarkable A1c 5.5% UA no protein 1+ blood LINDSEY/ANCA neg, K/L ratio WNLTSAT 9% ferritin 221 Vit D <12.8 PTH 268 FENa 0.3% TTKG 15 Objective - Vital Signs/Intake and Output Vital Signs (last 24 hours): Temp Pulse Resp BP Pulse Ox 98.3 F 96 H 20 138/72 96 09/25/18 07:16 09/25/18 07:16 09/25/18 07:16 09/25/18 09:21 09/25/18 07:16 - Medications Medications: Current Medications Acetaminophen (Tylenol 325mg Tab) 650 mg PO Q6 PRN PRN Reason: pain Last Admin: 09/16/18 09:15 Dose: 650 mg Calcium/Vitamin D (Oyster Shell Calcium/Vitamin D 500 Mg-200 Iu) 1 tab PO BID [facility] Last Admin: 09/25/18 09:20 Dose: 1 tab Ergocalciferol (Drisdol 50,000 Intl Units Cap) 1 cap PO Q7D [facility] Last Admin: 09/22/18 13:38 Dose: 1 cap Ferrous Gluconate (Fergon) 324 mg PO TID [facility] Last Admin: 09/25/18 09:20 Dose: 324 mg Furosemide (Lasix) 40 mg PO DAILY [facility] Last Admin: 09/25/18 09:21 Dose: 40 mg Gabapentin (Neurontin) 100 mg PO TID [facility] Last Admin: 09/25/18 09:20 Dose: 100 mg Meropenem 500 mg/ Sodium (Chloride) 100 mls @ 100 mls/hr IVPB Q12H [facility]; Protocol Last Admin: 09/25/18 04:24 Dose: 100 mls/hr Losartan Potassium (Cozaar) 25 mg PO DAILY [facility] Last Admin: 09/25/18 09:21 Dose: 25 mg Magnesium Oxide (Mag-Ox) 400 mg PO BID [facility] Last Admin: 09/25/18 09:21 Dose: 400 mg Metoprolol Tartrate (Lopressor) 50 mg PO BID [facility] Last Admin: 09/25/18 09:20 Dose: 50 mg Ondansetron HCl (Zofran Inj) 4 mg IVP Q6H PRN PRN Reason: nausea Last Admin: 09/13/18 17:00 Dose: 4 mg Tramadol HCl (Ultram) 25 mg PO TID PRN PRN Reason: Pain, severe (8-10) Last Admin: 09/22/18 14:53 Dose: 25 mg Vitamin B Complex/Vit C/Folic Acid (Nephro-Fortino) 1 tab PO 0800 [facility] Last Admin: 09/25/18 09:20 Dose: 1 tab - Labs Labs: 09/24/18 11:01 09/24/18 11:01 PT 25.5 SECONDS (9.7-12.2) H 08/31/18 20:08 INR 2.3 08/31/18 20:08 APTT 34 SECONDS (21-34) 08/31/18 12:32
--- NOTE | 2018-09-25 12:57 | CP.PCM.PN ---
Subjective - Date & Time of Evaluation Date of Evaluation: 09/25/18 Time of Evaluation: 08:00 - Subjective Subjective: clinically same Objective - Vital Signs/Intake and Output Vital Signs (last 24 hours): Temp Pulse Resp BP Pulse Ox 98.3 F 96 H 20 138/72 96 09/25/18 07:16 09/25/18 07:16 09/25/18 07:16 09/25/18 09:21 09/25/18 07:16 - Medications Medications: Current Medications Acetaminophen (Tylenol 325mg Tab) 650 mg PO Q6 PRN PRN Reason: pain Last Admin: 09/16/18 09:15 Dose: 650 mg Calcium/Vitamin D (Oyster Shell Calcium/Vitamin D 500 Mg-200 Iu) 1 tab PO BID [facility] Last Admin: 09/25/18 09:20 Dose: 1 tab Ergocalciferol (Drisdol 50,000 Intl Units Cap) 1 cap PO Q7D [facility] Last Admin: 09/22/18 13:38 Dose: 1 cap Ferrous Gluconate (Fergon) 324 mg PO TID [facility] Last Admin: 09/25/18 09:20 Dose: 324 mg Furosemide (Lasix) 40 mg PO DAILY [facility] Last Admin: 09/25/18 09:21 Dose: 40 mg Gabapentin (Neurontin) 100 mg PO TID [facility] Last Admin: 09/25/18 09:20 Dose: 100 mg Meropenem 500 mg/ Sodium (Chloride) 100 mls @ 100 mls/hr IVPB Q12H [facility]; Protocol Last Admin: 09/25/18 04:24 Dose: 100 mls/hr Losartan Potassium (Cozaar) 25 mg PO DAILY [facility] Last Admin: 09/25/18 09:21 Dose: 25 mg Magnesium Oxide (Mag-Ox) 400 mg PO BID [facility] Last Admin: 09/25/18 09:21 Dose: 400 mg Metoprolol Tartrate (Lopressor) 50 mg PO BID [facility] Last Admin: 09/25/18 09:20 Dose: 50 mg Ondansetron HCl (Zofran Inj) 4 mg IVP Q6H PRN PRN Reason: nausea Last Admin: 09/13/18 17:00 Dose: 4 mg Tramadol HCl (Ultram) 25 mg PO TID PRN PRN Reason: Pain, severe (8-10) Last Admin: 09/22/18 14:53 Dose: 25 mg Vitamin B Complex/Vit C/Folic Acid (Nephro-Fortino) 1 tab PO 0800 [facility] Last Admin: 09/25/18 09:20 Dose: 1 tab - Labs Labs: 09/24/18 11:01 09/24/18 11:01 PT 25.5 SECONDS (9.7-12.2) H 08/31/18 20:08 INR 2.3 08/31/18 20:08 APTT 34 SECONDS (21-34) 08/31/18 12:32 - Constitutional Appears: Well - Head Exam Head Exam: ATRAUMATIC, NORMAL INSPECTION, NORMOCEPHALIC - Eye Exam Eye Exam: EOMI, Normal appearance, PERRL Pupil Exam: NORMAL ACCOMODATION, PERRL - ENT Exam ENT Exam: Mucous Membranes Moist, Normal Exam - Neck Exam Neck Exam: Full ROM, Normal Inspection. absent: Lymphadenopathy - Respiratory Exam Respiratory Exam: Decreased Breath Sounds - Cardiovascular Exam Cardiovascular Exam: REGULAR RHYTHM, +S1, +S2 - GI/Abdominal Exam GI & Abdominal Exam: Soft, Diminished Bowel Sounds - Rectal Exam Rectal Exam: Deferred
--- NOTE | 2018-09-25 19:31 | CP.PCM.PN ---
Subjective - Date & Time of Evaluation Date of Evaluation: 09/25/18 Time of Evaluation: 19:00 - Subjective Subjective: No complaints. Objective - Vital Signs/Intake and Output Vital Signs (last 24 hours): Temp Pulse Resp BP Pulse Ox 98.6 F 97 H 20 146/93 H 95 09/25/18 15:56 09/25/18 17:33 09/25/18 15:56 09/25/18 17:33 09/25/18 15:56 Intake and Output: 09/25/18 09/26/18 18:59 06:59 Intake Total 800 100 Output Total 221 Balance 579 100 - Medications Medications: Current Medications Acetaminophen (Tylenol 325mg Tab) 650 mg PO Q6 PRN PRN Reason: pain Last Admin: 09/16/18 09:15 Dose: 650 mg Calcium/Vitamin D (Oyster Shell Calcium/Vitamin D 500 Mg-200 Iu) 1 tab PO BID [facility] Last Admin: 09/25/18 17:29 Dose: 1 tab Ergocalciferol (Drisdol 50,000 Intl Units Cap) 1 cap PO Q7D [facility] Last Admin: 09/22/18 13:38 Dose: 1 cap Ferrous Gluconate (Fergon) 324 mg PO TID [facility] Last Admin: 09/25/18 17:29 Dose: 324 mg Furosemide (Lasix) 40 mg PO DAILY [facility] Last Admin: 09/25/18 09:21 Dose: 40 mg Gabapentin (Neurontin) 100 mg PO TID [facility] Last Admin: 09/25/18 17:29 Dose: 100 mg Meropenem 500 mg/ Sodium (Chloride) 100 mls @ 100 mls/hr IVPB Q12H [facility]; Protocol Last Admin: 09/25/18 16:49 Dose: 100 mls/hr Losartan Potassium (Cozaar) 25 mg PO DAILY [facility] Last Admin: 09/25/18 09:21 Dose: 25 mg Magnesium Oxide (Mag-Ox) 400 mg PO BID [facility] Last Admin: 09/25/18 17:29 Dose: 400 mg Metoprolol Tartrate (Lopressor) 50 mg PO BID [facility] Last Admin: 09/25/18 17:29 Dose: 50 mg Ondansetron HCl (Zofran Inj) 4 mg IVP Q6H PRN PRN Reason: nausea Last Admin: 09/13/18 17:00 Dose: 4 mg Tramadol HCl (Ultram) 25 mg PO TID PRN PRN Reason: Pain, severe (8-10) Last Admin: 09/22/18 14:53 Dose: 25 mg Vitamin B Complex/Vit C/Folic Acid (Nephro-Fortino) 1 tab PO 0800 [facility] Last Admin: 09/25/18 09:20 Dose: 1 tab - Labs Labs: 09/24/18 11:01 09/24/18 11:01 PT 25.5 SECONDS (9.7-12.2) H 08/31/18 20:08 INR 2.3 08/31/18 20:08 APTT 34 SECONDS (21-34) 08/31/18 12:32 - Head Exam Head Exam: ATRAUMATIC - Eye Exam Eye Exam: Normal appearance - ENT Exam ENT Exam: Mucous Membranes Dry - Respiratory Exam Respiratory Exam: NORMAL BREATHING PATTERN - Cardiovascular Exam Cardiovascular Exam: +S1, +S2 - GI/Abdominal Exam GI & Abdominal Exam: Normal Bowel Sounds Assessment and Plan (1) Anemia Assessment & Plan: prior work up consistent with anemia of chronic disease transfusion support PRN no iron, b12, folate deficiency Status: Acute
[2018-09-25 23:32] VITALS: RESP 20
[2018-09-26] MEDS: Meropenem 500 MG in Sodium Chloride 0.9% 100 ML IVPB SCH (04:28)
[2018-09-26 08:29] VITALS: PULSE 91; O2SAT 96
[2018-09-26 08:30] VITALS: TEMP 97.7
[2018-09-26] MEDS: Calcium-Vit D 500 mg-200 Units Tab UD PO SCH (09:08)
[2018-09-26] MEDS: Magnesium Oxide 400 mg Tab UD PO SCH (09:09)
[2018-09-26] MEDS: Multivitamin Vitamin B Complex (Nephro-Vite) Tab PO SCH (09:09)
[2018-09-26 09:10] VITALS: BP 132/76
--- NOTE | 2018-09-26 14:21 | CP.PCM.PN ---
Subjective - Date & Time of Evaluation Date of Evaluation: 09/26/18 Time of Evaluation: 08:00 - Subjective Subjective: clinically same Objective - Vital Signs/Intake and Output Vital Signs (last 24 hours): Temp Pulse Resp BP Pulse Ox 97.7 F 91 H 20 132/76 96 09/26/18 08:29 09/26/18 08:29 09/26/18 08:29 09/26/18 09:09 09/26/18 08:29 Intake and Output: 09/26/18 09/26/18 06:59 18:59 Intake Total 200 820 Output Total 500 900 Balance -300 -80 - Medications Medications: Current Medications Acetaminophen (Tylenol 325mg Tab) 650 mg PO Q6 PRN PRN Reason: pain Last Admin: 09/16/18 09:15 Dose: 650 mg Calcium/Vitamin D (Oyster Shell Calcium/Vitamin D 500 Mg-200 Iu) 1 tab PO BID [facility] Last Admin: 09/26/18 09:08 Dose: 1 tab Ergocalciferol (Drisdol 50,000 Intl Units Cap) 1 cap PO Q7D [facility] Last Admin: 09/22/18 13:38 Dose: 1 cap Ferrous Gluconate (Fergon) 324 mg PO TID [facility] Last Admin: 09/26/18 13:11 Dose: 324 mg Furosemide (Lasix) 20 mg PO DAILY [facility] Stop: 10/01/18 10:01 Gabapentin (Neurontin) 100 mg PO TID [facility] Last Admin: 09/26/18 13:11 Dose: 100 mg Meropenem 500 mg/ Sodium (Chloride) 100 mls @ 100 mls/hr IVPB Q12H [facility]; Protocol Last Admin: 09/26/18 04:28 Dose: 100 mls/hr Losartan Potassium (Cozaar) 25 mg PO DAILY [facility] Last Admin: 09/26/18 09:09 Dose: 25 mg Magnesium Oxide (Mag-Ox) 400 mg PO BID [facility] Last Admin: 09/26/18 09:09 Dose: 400 mg Metoprolol Tartrate (Lopressor) 50 mg PO BID [facility] Last Admin: 09/26/18 09:09 Dose: 50 mg Ondansetron HCl (Zofran Inj) 4 mg IVP Q6H PRN PRN Reason: nausea Last Admin: 09/13/18 17:00 Dose: 4 mg Tramadol HCl (Ultram) 25 mg PO TID PRN PRN Reason: Pain, severe (8-10) Last Admin: 09/22/18 14:53 Dose: 25 mg Vitamin B Complex/Vit C/Folic Acid (Nephro-Fortino) 1 tab PO 0800 [facility] Last Admin: 09/26/18 09:09 Dose: 1 tab - Labs Labs: 09/24/18 11:01 09/24/18 11:01 PT 25.5 SECONDS (9.7-12.2) H 08/31/18 20:08 INR 2.3 08/31/18 20:08 APTT 34 SECONDS (21-34) 08/31/18 12:32
--- NOTE | 2018-09-26 15:12 | CP.PCM.PN ---
Subjective - Date & Time of Evaluation Date of Evaluation: 09/26/18 Time of Evaluation: 15:11 - Subjective Subjective: Nephrology Consultation Note Assessment: stable Acute Kidney Injury (N17.9) likely due to ATN and pre-renal state: recent work up for GN neg; resolved HAGMA with ketonemia likely due to ROBIN and ketoacidosis hypovolemic hyponatremia, Hypokalemia, hypocalcemia and hypomagnesemia likely due to GI (due to diarrhoea) and renal loss (was on lasix) with limited oral intake severe hypoalbuminemia with malnutration with anasarca Hypertensive Chronic Kidney Disease (I12.9) Chronic Kidney Disease (N18.9) Stage 3 with 55 mg albuminuria Anemia acute on chronic severe Mitral regurg with infective endocarditis, depression/Anxiety shingles rash Plan Maintain hemodynamics stable. Avoid hypotension. Patient not on ACEI/ARB due to recent ROBIN, will add low dose losartan. lopressor increased to 50 bid Monitor Input/Output, daily weights and renal function with basic metabolic panel started Fe, MVI, and weekly Vit D, OScal D continue with lasix 20 mg oral daily with lytes supplements for few more days and then likely can be stopped thereafter PRBC as needed. had transfusion 09/02/18. supplement lytes as needed Dose meds/antibiotics for improved GFR. Glycemic control Further work up for as per primary team pt stable from renal perspective Thanks for allowing me to participate in care of your patient. Will follow patient with you. Please call if any Qs. had d/w team Dr Heriberto Hernandez Office: [phone] reason for consult; ROBIN and electrolytes abnormalities HPI: pt is a 62 F with hx of HTN, depression who was recently admitted to hospital with ROBIN required few session of HD then improved with cr 1.2, also with infective endocarditis with severe MR but pt refused surgery and decided only for IV antibiotics treatments came as was feeling weak, found to have severe electrolytes depletion and renal consult for ROBIN. pt feels nervous. reports decreased oral intake and c.o loose stool besides that not providing much hx nor recent Iv contrast. noted low BP ROS: denies SOB, chest pain. feels better no diarrhoea Physical Examination: General Appearance: comfortable, in no acute respiratory distress, better appearing but debilitated Vitals reviewed and noted as below Head; Atraumatic, normocephalic ENT: WNL EYES: Pupils are equal, round and reactive to light accommodation. Eye muscles and extraocular movement intact. Sclera is anicteric. Neck; supple no lymphadenopathy, no thyromegaly or bruit Lungs: Normal respiratory rate/effort. Breath sounds b/l decreased at bases Heart: Increased rate. s1s2 normal. No rub or gallop. SM + at apex/LSB Extremities: 1+ edema. No varicose veins Neurological: Patient is alert awake oriented follow commands Skin: Warm and dry. Normal turgor. Palpitation: Normal elasticity for age. shingles rash RUQ dermatome Abdomen: Abdomen is soft. Bowel sounds +. There is no abdominal tenderness, no guarding/rigidity no organomegaly Psych: lack insight. anxious MSK: no joint tenderness or swelling. Digits and nails normal, no deformity : kidney or bladder not palpable Labs/imaging reviewed. Past medical history, past surgical history, family history, social history, allergy reviewed and noted as below Family hx: no hx of CKD. Rest non-contributory work up: Hep B/C/HIV neg renal imaging: unremarkable A1c 5.5% UA no protein 1+ blood LINDSEY/ANCA neg, K/L ratio WNLTSAT 9% ferritin 221 Vit D <12.8 PTH 268 FENa 0.3% TTKG 15 Objective - Vital Signs/Intake and Output Vital Signs (last 24 hours): Temp Pulse Resp BP Pulse Ox 97.7 F 91 H 20 132/76 96 09/26/18 08:29 09/26/18 08:29 09/26/18 08:29 09/26/18 09:09 09/26/18 08:29 Intake and Output: 09/26/18 09/26/18 06:59 18:59 Intake Total 200 820 Output Total 500 900 Balance -300 -80 - Medications Medications: Current Medications Acetaminophen (Tylenol 325mg Tab) 650 mg PO Q6 PRN PRN Reason: pain Last Admin: 09/16/18 09:15 Dose: 650 mg Calcium/Vitamin D (Oyster Shell Calcium/Vitamin D 500 Mg-200 Iu) 1 tab PO BID [facility] Last Admin: 09/26/18 09:08 Dose: 1 tab Ergocalciferol (Drisdol 50,000 Intl Units Cap) 1 cap PO Q7D [facility] Last Admin: 09/22/18 13:38 Dose: 1 cap Ferrous Gluconate (Fergon) 324 mg PO TID [facility] Last Admin: 09/26/18 13:11 Dose: 324 mg Furosemide (Lasix) 20 mg PO DAILY [facility] Stop: 10/01/18 10:01 Gabapentin (Neurontin) 100 mg PO TID [facility] Last Admin: 09/26/18 13:11 Dose: 100 mg Meropenem 500 mg/ Sodium (Chloride) 100 mls @ 100 mls/hr IVPB Q12H [facility]; Protocol Last Admin: 09/26/18 04:28 Dose: 100 mls/hr Losartan Potassium (Cozaar) 25 mg PO DAILY [facility] Last Admin: 09/26/18 09:09 Dose: 25 mg Magnesium Oxide (Mag-Ox) 400 mg PO BID [facility] Last Admin: 09/26/18 09:09 Dose: 400 mg Metoprolol Tartrate (Lopressor) 50 mg PO BID [facility] Last Admin: 09/26/18 09:09 Dose: 50 mg Ondansetron HCl (Zofran Inj) 4 mg IVP Q6H PRN PRN Reason: nausea Last Admin: 09/13/18 17:00 Dose: 4 mg Tramadol HCl (Ultram) 25 mg PO TID PRN PRN Reason: Pain, severe (8-10) Last Admin: 09/22/18 14:53 Dose: 25 mg Vitamin B Complex/Vit C/Folic Acid (Nephro-Fortino) 1 tab PO 0800 [facility] Last Admin: 09/26/18 09:09 Dose: 1 tab - Labs Labs: 09/24/18 11:01 09/24/18 11:01 PT 25.5 SECONDS (9.7-12.2) H 08/31/18 20:08 INR 2.3 08/31/18 20:08 APTT 34 SECONDS (21-34) 08/31/18 12:32
--- NOTE | 2018-09-26 17:59 | CP.PCM.PN ---
Subjective - Date & Time of Evaluation Date of Evaluation: 09/26/18 Time of Evaluation: 11:00 - Subjective Subjective: alert, awake, denies any pain. Objective - Vital Signs/Intake and Output Vital Signs (last 24 hours): Temp Pulse Resp BP Pulse Ox 97.7 F 91 H 20 132/76 96 09/26/18 08:29 09/26/18 08:29 09/26/18 08:29 09/26/18 09:09 09/26/18 08:29 Intake and Output: 09/26/18 09/26/18 06:59 18:59 Intake Total 200 820 Output Total 500 900 Balance -300 -80 - Labs Labs: 09/24/18 11:01 09/24/18 11:01 PT 25.5 SECONDS (9.7-12.2) H 08/31/18 20:08 INR 2.3 08/31/18 20:08 APTT 34 SECONDS (21-34) 08/31/18 12:32 Assessment and Plan - Assessment and Plan (Free Text) Assessment: 62 year old female admitted with kidney injury , creatinine at 2.5, improved to 0.6 , seen and examined. Alert and oriented x3, denies any pain or distress now. Discussed with DR Steven Marc, plan to discharge to [facility] for rehab today. IV antibiotics to continue for 5 more days as per DR Grant for UTI via PICC line. Plan: alert, awake, denies any pain.
--- NOTE | 2018-09-26 23:38 | CP.PCM.PN ---
Subjective - Date & Time of Evaluation Date of Evaluation: 09/26/18 Time of Evaluation: 10:00 - Subjective Subjective: No complaints. Objective - Vital Signs/Intake and Output Vital Signs (last 24 hours): Temp Pulse Resp BP Pulse Ox 97.7 F 91 H 20 132/76 96 09/26/18 08:29 09/26/18 08:29 09/26/18 08:29 09/26/18 09:09 09/26/18 08:29 Intake and Output: 09/26/18 09/27/18 18:59 06:59 Intake Total 820 Output Total 900 Balance -80 - Labs Labs: 09/24/18 11:01 09/24/18 11:01 PT 25.5 SECONDS (9.7-12.2) H 08/31/18 20:08 INR 2.3 08/31/18 20:08 APTT 34 SECONDS (21-34) 08/31/18 12:32 - Head Exam Head Exam: ATRAUMATIC - Eye Exam Eye Exam: Normal appearance - ENT Exam ENT Exam: Mucous Membranes Dry - Respiratory Exam Respiratory Exam: NORMAL BREATHING PATTERN - Cardiovascular Exam Cardiovascular Exam: +S1, +S2 - GI/Abdominal Exam GI & Abdominal Exam: Normal Bowel Sounds Assessment and Plan (1) Anemia Assessment & Plan: prior work up consistent with anemia of chronic disease transfusion support PRN no iron, b12, folate deficiency Status: Acute
== END 2018-09-26 17:16 | DRG 682 ==
LOC: C.ER 10:23 → C.9E 14:21 → C.9I 14:54 → C.5S 09-14 19:20
PROVIDERS: ADMIT Internal Medicine Nephrology; ATTEND Internal Medicine Nephrology
DX: N17.0 Acute kidney failure with tubular necrosis (principal); J18.9 Pneumonia, unspecified organism; I33.0 Acute and subacute infective endocarditis; E46 Unspecified protein-calorie malnutrition; E87.1 Hypo-osmolality and hyponatremia; N39.0 Urinary tract infection, site not specified; D63.1 Anemia in chronic kidney disease; E87.6 Hypokalemia; B95.8 Unspecified staphylococcus as the cause of diseases classified elsewhere; E78.00 Pure hypercholesterolemia, unspecified; E83.51 Hypocalcemia; E86.0 Dehydration; F32.9 Major depressive disorder, single episode, unspecified; I34.0 Nonrheumatic mitral (valve) insufficiency